=== PATIENT | male | born 1960 | race Hispanic/Latino ===

== ENCOUNTER 2016-06-19 20:51 | Observation (INO) | payer SELFPAY ==
--- NOTE | 2016-06-19 21:32 | ED PDOC ---
Arrival/HPI - General Time Seen by Provider: 06/19/16 21:14 Historian: Patient - History of Present Illness Narrative History of Present Illness (Text): 06/19/16 21:32 Travis Royal is a 55 year old male, with a history of hypertension, diabetes, COPD, alcohol abuse, GERD, and pancreatitis, who presents to the ED complaining of generalized abdominal pain today. Patient denies any fever, chills, chest pain, shortness of breath, diarrhea, urinary symptoms, back pain, neck pain, headache, dizziness, or any other complaints. 06/20/16 06:17 Time/Duration: Other (today) Symptom Onset: Gradual Symptom Course: Unchanged Activities at Onset: Rest, Light Associated Symptoms (Text): abdominal pain Past Medical History - Provider Review Nursing Documentation Reviewed: Yes - Past History Past History: No Previous - Infectious Disease Hx of Infectious Diseases: None - Tetanus Immunization Tetanus Immunization: Unknown - Cardiac Hx Hypertension: Yes - Pulmonary Hx Chronic Obstructive Pulmonary Disease (COPD): Yes - Neurological HX Cerebrovascular Accident: No - HEENT Hx HEENT Disorder: No - Renal Hx Renal Disorder: No - Endocrine/Metabolic Hx Diabetes Mellitus Type 2: Yes (noncompliant; 04/19/16 patient states he controls with diet) - Hematological/Oncological Hx Blood Disorders: Yes Hx Cancer: Yes (Pancreatic) - Integumentary Hx Dermatological Disorder: No - Musculoskeletal/Rheumatological Hx Musculoskeletal Disorders: Yes Hx Back Pain: Yes Hx Falls: Yes Hx Fractures: Yes (left hand years ago) - Gastrointestinal Hx Gastrointestinal Disorders: Yes Hx Gastroesophageal Reflux: Yes Hx Pancreatitis: Yes HX Swallowing Problems: Yes (states he must really chew his food well) - Genitourinary/Gynecological Hx Genitourinary Disorders: No - Psychiatric Hx Psychophysiologic Disorder: Yes (ETOH) Hx Anxiety: Yes Hx Depression: Yes Hx Substance Use: No (Denied by pt.) Other/Comment: Alcohol Abuse - Surgical History Hx Inguinal Hernia Repair: Yes (Ventral Hernia Repair.) - Anesthesia Hx Anesthesia Reactions: No Hx Malignant Hyperthermia: No - Suicidal Assessment Feels Threatened In Home Enviroment: No Family/Social History - Physician Review Nursing Documentation Reviewed: Yes Family/Social History: No Known Family HX Smoking Status: Light Smoker < 10 Cigarettes Daily Hx Alcohol Use: Yes (beer) Amount per day: 10 Hx Substance Use: No (Denied by pt.) Hx Substance Use Treatment: No Allergies/Home Meds Allergies/Adverse Reactions: Allergies Penicillins Allergy (Verified 04/18/16 22:38) RASH Review of Systems - Physician Review All systems were reviewed & negative as marked: Yes - Review of Systems Constitutional: Normal. absent: Fevers Eyes: Normal ENT: Normal Respiratory: Normal. absent: SOB, Cough Cardiovascular: Normal. absent: Chest Pain Gastrointestinal: Abdominal Pain Genitourinary Male: Normal. absent: Dysuria, Frequency, Hematuria, Urinary Output Changes Musculoskeletal: Normal. absent: Back Pain, Neck Pain Skin: Normal. absent: Rash Neurological: Normal. absent: Headache, Dizziness Endocrine: Normal Hemo/Lymphatic: Normal Psychiatric: Normal Physical Exam Vital Signs Reviewed: Yes Vital Signs Temp Pulse Resp BP Pulse Ox 06/20/16 05:21 97 H 18 115/70 96 06/20/16 02:35 98.2 F 93 H 18 108/61 95 06/19/16 21:00 98.2 F 86 18 133/89 98 Temperature: Afebrile Blood Pressure: Normal Pulse: Regular Respiratory Rate: Normal Appearance: Positive for: Well-Appearing, Non-Toxic, Comfortable Pain Distress: None Mental Status: Positive for: Alert and Oriented X 3 - Systems Exam Head: Present: Atraumatic, Normocephalic Pupils: Present: PERRL Extroacular Muscles: Present: EOMI Conjunctiva: Present: Normal Mouth: Present: Moist Mucous Membranes Neck: Present: Normal Range of Motion Respiratory/Chest: Present: Clear to Auscultation, Good Air Exchange. No: Respiratory Distress, Accessory Muscle Use Cardiovascular: Present: Regular Rate and Rhythm, Normal S1, S2. No: Murmurs Abdomen: Present: Normal Bowel Sounds. No: Tenderness, Distention, Peritoneal Signs Back: Present: Normal Inspection Upper Extremity: Present: Normal Inspection. No: Cyanosis, Edema Lower Extremity: Present: Normal Inspection. No: Edema Neurological: Present: GCS=15, CN II-XII Intact, Speech Normal Skin: Present: Warm, Dry, Normal Color. No: Rashes Psychiatric: Present: Alert, Oriented x 3, Normal Insight, Normal Concentration Medical Decision Making ED Course and Treatment: 06/19/16 21:32 Impression: 55 year old male complaining of generalized abdominal pain tonight. Plan: -- EKG -- EKG -- Labs, cardiac enzymes, alcohol level, lipase -- IV fluids -- Zofran -- Reassess and disposition Prior Visits: Notes and results from previous visits were reviewed. On 05/16/2016, pt was seen in the ED for bilateral lower extremity edema. Pt was admitted to the hospital for further evaluation. Progress Notes: 06/19/16 21:37 Reviewed EKG, NSR at [address]-segment elevations or depressions, no T- wave inversions, normal intervals. 06/19/16 23:07 Reviewed radiology, Chest X-ray shows no active disease. 06/20/16 06:17 awake and alert no evidence of withdrawal or intoxication Re-evaluation Time: 06:17 Reassessment Condition: Re-examined, Improved - Lab Interpretations I have reviewed the lab results: Yes - RAD Interpretation Narrative RAD Interpretations (Text): Chest X-ray shows no active disease. Prosthetist: ED Physician - EKG Interpretation Interpreted by ED Physician: Yes Type: 12 lead EKG - Medication Orders Current Medication Orders: Sodium Chloride (Sodium Chloride 0.9%) 1,000 mls @ 100 mls/hr IV .Q10H STA Stop: 06/20/16 07:41 Last Admin: 06/19/16 22:54 Dose: 100 MLS/HR eMAR Start Stop Document 06/19/16 22:54 OCS (Rec: 06/19/16 22:54 [id number]) Intravenous Solution Start Date 06/19/16 Start Time 22:54 Discontinued Medications Albuterol/Ipratropium (Duoneb 3 Mg/0.5 Mg (3 Ml) Ud) 3 ml IH STAT STA Stop: 06/19/16 22:09 Last Admin: 06/19/16 22:54 Dose: 3 ML Famotidine (Pepcid 20mg/50ml Premix) 50 mls @ 100 mls/hr IVPB STAT STA Stop: 06/19/16 22:37 Last Admin: 06/19/16 22:54 Dose: 100 MLS/HR eMAR Start Stop Document 06/19/16 22:54 OCS (Rec: 06/19/16 22:54 [id number]) Intravenous Solution Start Date 06/19/16 Start Time 22:54 Ondansetron HCl (Zofran Inj) 4 mg IVP STAT STA Stop: 06/19/16 21:43 Last Admin: 06/19/16 22:54 Dose: 4 MG IVP Administration Document 06/19/16 22:54 OCS (Rec: 06/19/16 22:54 [place] [facility] [id number][place] Charges for Administration # of IVP Administrations 1 ED OBSERVATION Discharge: Yes Date of observation admission: 06/19/16 Time of observation admission: 21:40 - Observation admission statement Patient is being placed in observation because:: alcohol abuse - Goals of Observation Goals of observation are:: sobriety - Progress Note Progress Note: 06/19/16 21:40 Pt resting comfortably, no new complaints. 06/19/16 23:40 Pt sleeping currently, in no acute distress. 06/20/16 01:47 Pt resting comfortably, no new complaints. 06/20/16 04:43 Pt sleeping currently, in no acute distress. Disposition/Present on Arrival - Present on Arrival Any Indicators Present on Arrival: No History of DVT/PE: No History of Uncontrolled Diabetes: Yes Urinary Catheter: No History Surgical Site Infection Following: None - Disposition Have Diagnosis and Disposition been Completed?: Yes Diagnosis: Alcohol abuse Disposition: HOME/ ROUTINE Disposition Time: 06:18 Patient Problems: Current Active Problems Problem Status Diagnosed Chest pain Acute Intractable vomiting Acute Condition: GOOD
[2016-06-19 21:35] VITALS: RESP 18; BMI 24.2
[2016-06-19] MEDS ORDERED: Sodium Chloride 0.9% 1,000 ML IV STA (21:42)
[2016-06-19] MEDS ORDERED: Albuterol-Ipratrop 3 mg / 0.5 (3 ml) UD IH STA (22:08)
[2016-06-19] MEDS ORDERED: Famotidine 20mg/50ml 50 ML IVPB STA (22:08)
[2016-06-19 23:14] LABS: ADD MANUAL DIFF? NO
[2016-06-19 23:24] LABS: BASO # 0.03 K/mm3 (0.0-2.0); BASO % 0.4 % (0.0-3.0); EOS % 0.3 % (1.5-5.0); GRAN # 5.46 (1.4-6.5); GRAN % 68.8 % (50.0-68.0); HEMATOCRIT 30.4 % (42.0-52.0); LYMPH # 1.9 (1.2-3.4); LYMPH % 23.3 % (22.0-35.0); MEAN CELL VOLUME 74.5 fL (80.0-105.0); MEAN CORPUSCULAR HEMOGLOBIN 24.5 pg (25.0-35.0); MEAN CORPUSCULAR HGB CONC 32.9 g/dl (31.0-37.0); MEAN PLATELET VOLUME 9.2 fl (7.0-11.0); MONO # 0.6 (0.1-0.6); MONO % 7.2 % (1.0-6.0); PLATELET COUNT 118 10^3/uL (120.0-450.0); RED CELL DISTRIBUTION WIDTH 20.7 % (11.5-14.5); WHITE BLOOD COUNT 7.9 10^3/ul (4.5-11.0)
[2016-06-19 23:29] LABS: ALB/GLOB RATIO 1.1 (1.1-1.8); ALKALINE PHOSPHATASE 108 U/L (38-133); ALT/SGPT 22 U/L (7-56); AST/SGOT 55 U/L (15-59); BILIRUBIN,TOTAL 0.9 mg/dL (0.2-1.3); BLOOD UREA NITROGEN 10 mg/dL (7-21); CARBON DIOXIDE 24 mmol/L (21-33); CHLORIDE 93 mmol/L (98-107); GFR AFRICAN-AMERICAN > 60; GLUCOSE,RANDOM 112 mg/dL (70-110); LIPASE 362 U/L (23-300); POTASSIUM 3.2 mmol/L (3.6-5.0); SODIUM 134 mmol/L (132-148); TOTAL PROTEIN 8.3 g/dL (5.8-8.3)
[2016-06-19 23:48] LABS: TROPONIN I < 0.01 ng/mL
[2016-06-20 00:52] LABS: PH,URINE 6.5 (4.7-8.0); URINE BILIRUBIN NEGATIVE (NEGATIVE); URINE BLOOD NEGATIVE (NEGATIVE); URINE GLUCOSE (UA) NEGATIVE (NEGATIVE); URINE KETONE NEGATIVE (NEGATIVE); URINE LEUKOCYTE ESTERASE NEGATIVE Leu/uL (NEGATIVE); URINE PROTEIN NEGATIVE mg/dL (<30 mg/dL); URINE UROBILINOGEN 0.2 E.U./dL (<1 E.U./dL)
[2016-06-20 00:58] LABS: URINE APPEARANCE CLEAR (CLEAR); URINE COLOR YELLOW (YELLOW)
[2016-06-20 06:35] VITALS: BP 104/63; PULSE 87; TEMP 97.9; O2SAT 95
--- NOTE | 2016-06-20 11:06 | RAD ---
PROCEDURE: Chest portable HISTORY: abd pain COMPARISON: 04/22/2016 TECHNIQUE: Technique: Single view portable semi erect @ 21:51. FINDINGS: No active pulmonary disease. No pulmonary nodules, masses or infiltrates. No evidence of acute, significant cardiovascular disease. No significant pleural, osseous or subdiaphragmatic abnormalities. IMPRESSION: No active disease. No acute/significant interval changes.
--- NOTE | 2016-06-20 18:31 | CARD ---
APPROVED REPORT EKG Measurement Heart [id number] <Conclusion> Normal sinus rhythm Normal ECG
== END 2016-06-20 06:18 | disposition home or self-care (01) ==
LOC: ED 20:51 → EROBSV 21:40
PROVIDERS: ADMIT Emergency Medicine; ATTEND Emergency Medicine
DX: F10.10 Alcohol abuse, uncomplicated (principal); Y90.8 Blood alcohol level of 240 mg/100 ml or more; I10 Essential (primary) hypertension; E11.9 Type 2 diabetes mellitus without complications; K21.9 Gastro-esophageal reflux disease without esophagitis; Z72.0 Tobacco use
CPT/HCPCS: 71010; 80053; 81003; 82550; 83615; 83690; 84484; 85025; 93005; 96374; 99285; G0378; G0480; J2405; J7040

== ENCOUNTER 2016-07-01 22:40 | Observation (INO) | payer MEDICAID, OTHER ==
[2016-07-01 22:40] VITALS: BMI 24.2
[2016-07-02] MEDS ORDERED: Sodium Chloride 0.9% 1,000 ML IV SCH (01:15)
--- NOTE | 2016-07-02 01:39 | ED PDOC ---
Arrival/HPI - General Historian: Patient - History of Present Illness Time/Duration: 4-6 hours Symptom Onset: Gradual Symptom Course: Unchanged Severity Level: Mild Activities at Onset: Light <Heraclio Jordan - Last Filed: 07/02/16 06:12> <Johnnie Pat - Last Filed: 07/02/16 16:17> - General Chief Complaint: Chest Pain Time Seen by Provider: 07/01/16 22:49 - History of Present Illness Narrative History of Present Illness (Text): 07/02/16 01:37 Travis Royal is a 55 year old male, with a history of alcohol abuse, presents to the emergency department complaining of some epigastric discomfort associated with some nausea.. Patient admits to drinking alcohol today. Denies any fever, chills, chest pain, shortness of breath, diarrhea, urinary symptoms, or any other complaints at this time. (Heraclio Jordan) Past Medical History - Provider Review Nursing Documentation Reviewed: Yes - Past History Past History: No Previous - Infectious Disease Hx of Infectious Diseases: None - Tetanus Immunization Tetanus Immunization: Unknown - Cardiac Hx Hypertension: Yes - Pulmonary Hx Chronic Obstructive Pulmonary Disease (COPD): Yes - Neurological HX Cerebrovascular Accident: No - HEENT Hx HEENT Disorder: No - Renal Hx Renal Disorder: No - Endocrine/Metabolic Hx Diabetes Mellitus Type 2: Yes (noncompliant; 04/19/16 patient states he controls with diet) - Hematological/Oncological Hx Blood Disorders: Yes Hx Cancer: Yes (Pancreatic) - Integumentary Hx Dermatological Disorder: No - Musculoskeletal/Rheumatological Hx Musculoskeletal Disorders: Yes Hx Back Pain: Yes Hx Falls: Yes Hx Fractures: Yes (left hand years ago) - Gastrointestinal Hx Gastrointestinal Disorders: Yes Hx Gastroesophageal Reflux: Yes Hx Pancreatitis: Yes HX Swallowing Problems: Yes (states he must really chew his food well) - Genitourinary/Gynecological Hx Genitourinary Disorders: No - Psychiatric Hx Psychophysiologic Disorder: Yes (ETOH) Hx Anxiety: Yes Hx Depression: Yes Hx Substance Use: No (Denied by pt.) Other/Comment: Alcohol Abuse - Surgical History Hx Cardiac Catheterization: No Hx Coronary Stent: No Hx Musculoskeletal Surgery: Yes - Anesthesia Hx Anesthesia: Yes Hx Anesthesia Reactions: No Hx Malignant Hyperthermia: No - Suicidal Assessment Feels Threatened In Home Enviroment: No <Heraclio Jordan - Last Filed: 07/02/16 06:12> Family/Social History - Physician Review Nursing Documentation Reviewed: Yes Family/Social History: No Known Family HX Smoking Status: Light Smoker < 10 Cigarettes Daily Hx Alcohol Use: Yes (beer) Amount per day: 10 Hx Substance Use: No (Denied by pt.) Hx Substance Use Treatment: No <JulianHeraclio - Last Filed: 07/02/16 06:12> Allergies/Home Meds <JulianHeraclio - Last Filed: 07/02/16 06:12> <Johnnie Pat Babar - Last Filed: 07/02/16 16:17> Allergies/Adverse Reactions: Allergies Penicillins Allergy (Verified 04/18/16 22:38) RASH Review of Systems - Physician Review All systems were reviewed & negative as marked: Yes - Review of Systems Constitutional: Normal. absent: Fatigue, Fevers Respiratory: Normal. absent: SOB, Cough Cardiovascular: absent: Chest Pain, Palpitations Gastrointestinal: Abdominal Pain, Nausea, Vomiting. absent: Diarrhea Skin: Normal Psychiatric: Normal <JulianHeraclio Benz Last Filed: 07/02/16 06:12> Physical Exam Vital Signs Reviewed: Yes Temperature: Afebrile Blood Pressure: Hypertensive Pulse: Tachycardic Respiratory Rate: Normal Appearance: Positive for: Comfortable Pain Distress: None Mental Status: Positive for: Alert and Oriented X 3 - Systems Exam Head: Present: Atraumatic, Normocephalic Pupils: Present: PERRL Extroacular Muscles: Present: EOMI Conjunctiva: Present: Normal Respiratory/Chest: Present: Clear to Auscultation, Good Air Exchange. No: Respiratory Distress, Accessory Muscle Use Cardiovascular: Present: Regular Rate and Rhythm, Normal S1, S2. No: Murmurs Abdomen: Present: Normal Bowel Sounds. No: Tenderness, Distention, Peritoneal Signs Upper Extremity: Present: Normal Inspection. No: Cyanosis, Edema Lower Extremity: Present: Normal Inspection Neurological: Present: GCS=15, CN II-XII Intact, Speech Normal Skin: Present: Warm, Dry, Normal Color. No: Rashes Psychiatric: Present: Alert, Oriented x 3, Intoxicated <JulianHeraclio - Last Filed: 07/02/16 06:12> Vital Signs Temp Pulse Resp BP Pulse Ox 07/02/16 09:22 86 18 101/68 99 07/02/16 08:35 92 H 18 100/70 99 07/02/16 08:00 98.7 F 92 H 16 99/65 L 99 07/02/16 05:30 88 20 130/88 96 07/02/16 02:00 98 H 20 136/94 H 96 07/01/16 22:47 98.2 F 100 H 16 140/108 H 96 Medical Decision Making - Transfer of Care Patient signed out to Dr:: Adilia Other: Sobriety/reassess/final disposition <Heraclio Jordan - Last Filed: 07/02/16 06:12> <Johnnie Pat - Last Filed: 07/02/16 16:17> ED Course and Treatment: 07/02/16 01:43 Impression: A 55 year old male who presents to the emergency department complaining of epigastric discomfort associated occassional nausea. Admits to drinking alcohol. Plan: -- EKG -- Alcohol level -- Cardiac enzymes -- Chest X-ray -- Protonix -- IV fluids -- Reassess and disposition 07/02/16 02:00 ETOH level of 294. Will place on EDOBS for alcohol intoxication. (Heraclio Jordan) The started to c/o some withdrawal sx which improved after librium. On several re-evals he was resting quietly without complaints. He was dc in stable condition. (Johnnie Pat) - Medication Orders Current Medication Orders: Sodium Chloride (Sodium Chloride 0.9%) 1,000 mls @ 100 mls/hr IV .Q10H [facility] Last Admin: 07/02/16 01:55 Dose: 100 MLS/HR eMAR Start Stop Document 07/02/16 01:55 SABINA (Rec: 07/02/16 01:55 SABINA [facility] [id number]) Intravenous Solution Start Date 07/02/16 Start Time 01:55 Discontinued Medications Chlordiazepoxide (Librium) 100 mg PO STAT STA PRN Reason: Protocol Stop: 07/02/16 08:16 Last Admin: 07/02/16 08:26 Dose: 100 MG Behavioural Document 07/02/16 08:26 SZA (Rec: 07/02/16 08:27 SZKristin [id number]) Maintenance Maintenance Dose Yes Nonmedicinal Nonmedicinal Interventions Redirect Behavior Behavior for Medication: Anxiety Ondansetron HCl (Zofran Inj) 4 mg IVP ONCE ONE Stop: 07/02/16 08:15 Last Admin: 07/02/16 08:25 Dose: 4 MG IVP Administration Document 07/02/16 08:25 SZA (Rec: 07/02/16 08:25 SZA [id number]) Charges for Administration # of IVP Administrations 1 Pantoprazole Sodium (Protonix Inj) 40 mg IVP ONCE STA Stop: 07/02/16 01:14 Last Admin: 07/02/16 01:55 Dose: 40 MG IVP Administration Document 07/02/16 01:55 SABINA (Rec: 07/02/16 01:55 [place] [facility] [facility] [id number][place] Charges for Administration # of IVP Administrations 1 ED OBSERVATION Date of observation admission: 07/02/16 Time of observation admission: 01:00 <Heraclio Jordan - Last Filed: 07/02/16 06:12> Discharge: Yes <Johnnie Pat - Last Filed: 07/02/16 16:17> - Observation admission statement Patient is being placed in observation because:: alcohol intoxication (Heraclio Jordan) - Goals of Observation Goals of observation are:: awaiting sobriety (Heraclio Jordan) - Progress Note Progress Note: 07/02/16 03:00 EKG interpreted by me: NSR @ 92 bpm. normal axis normal. normal interval. 07/02/16 05:00 Patient is sleeping comfortable with stable vitals. (Heraclio Jordan) 07/02/16 10:38 Patient is feeling better. Vitals are stable. Discussed plan to follow up and reasons to return to the Emergency department. (Johnnie Pat) - Scribe Statement The provider has reviewed the documentation as recorded by the Scribe <Heraclio Jordan - Last Filed: 07/02/16 06:12> - Scribe Statement The provider has reviewed the documentation as recorded by the Scribe <Johnnie Pat - Last Filed: 07/02/16 16:17> - Scribe Statement Marti Muller (Heraclio Jordan) Provider Attestation: All medical record entries made by the Scribe were at my direction and personally dictated by me. I have reviewed the chart and agree that the record accurately reflects my personal performance of the history, physical exam, medical decision making, and the department course for this patient. I have also personally directed, reviewed, and agree with the discharge instructions and disposition. (Heraclio Jordan) Daljit Reyes All medical record entries made by the Scribe were at my direction and personally dictated by me. I have reviewed the chart and agree that the record accurately reflects my personal performance of the history, physical exam, medical decision making, and the department course for this patient. I have also personally directed, reviewed, and agree with the discharge instructions and disposition. (Johnnie Pat) Disposition/Present on Arrival - Present on Arrival Any Indicators Present on Arrival: No History of DVT/PE: No History of Uncontrolled Diabetes: Yes Urinary Catheter: No History of Decub. Ulcer: No History Surgical Site Infection Following: None - Disposition Have Diagnosis and Disposition been Completed?: No Disposition Time: 07:00 <Heraclio Jordan - Last Filed: 07/02/16 06:12> - Present on Arrival Any Indicators Present on Arrival: No History of DVT/PE: No Urinary Catheter: No History of Decub. Ulcer: No - Disposition Have Diagnosis and Disposition been Completed?: Yes Disposition Time: 10:39 <Johnnie Pat - Last Filed: 07/02/16 16:17> - Disposition Diagnosis: Alcohol intoxication Disposition: HOME/ ROUTINE Patient Problems: Current Active Problems Problem Status Diagnosed Alcohol intoxication Acute Chest pain Acute Intractable vomiting Acute Condition: IMPROVED
[2016-07-02 02:22] LABS: HEMATOCRIT 30.5 % (42.0-52.0); MEAN CELL VOLUME 74.4 fL (80.0-105.0); MEAN CORPUSCULAR HEMOGLOBIN 24.9 pg (25.0-35.0); MEAN CORPUSCULAR HGB CONC 33.4 g/dl (31.0-37.0); MEAN PLATELET VOLUME 9.7 fl (7.0-11.0); RED CELL DISTRIBUTION WIDTH 20.1 % (11.5-14.5); WHITE BLOOD COUNT 7.3 10^3/ul (4.5-11.0)
[2016-07-02 02:44] LABS: ALKALINE PHOSPHATASE 97 U/L (38-133); ALT/SGPT 38 U/L (7-56); AST/SGOT 62 U/L (15-59); BILIRUBIN,TOTAL 0.9 mg/dL (0.2-1.3); BLOOD UREA NITROGEN 9 mg/dL (7-21); CALCIUM 8.6 mg/dL (8.4-10.5); CARBON DIOXIDE 24 mmol/L (21-33); CHLORIDE 95 mmol/L (98-107); GFR AFRICAN-AMERICAN > 60; GLUCOSE,RANDOM 99 mg/dL (70-110); LIPASE 369 U/L (23-300); POTASSIUM 3.7 mmol/L (3.6-5.0); SODIUM 136 mmol/L (132-148); TOTAL PROTEIN 8.6 g/dL (5.8-8.3)
[2016-07-02 02:56] LABS: TROPONIN I 0.02 ng/mL
[2016-07-02 08:16] VITALS: TEMP 98.7; O2SAT 99
[2016-07-02 09:23] VITALS: BP 101/68; PULSE 86; RESP 18
--- NOTE | 2016-07-02 09:31 | CARD ---
APPROVED REPORT EKG Measurement Heart [id number] <Conclusion> Normal sinus rhythm Normal ECG No change
--- NOTE | 2016-07-02 09:35 | RAD ---
HISTORY: Epigastric pain COMPARISON: 06/19/2016 FINDINGS: LUNGS: The lungs are well inflated and clear. PLEURA: No significant pleural effusion identified, no pneumothorax apparent. CARDIOVASCULAR: Normal. OSSEOUS STRUCTURES: No significant abnormalities. VISUALIZED UPPER ABDOMEN: Normal. OTHER FINDINGS: None. IMPRESSION: No active pulmonary disease.
== END 2016-07-02 16:18 | disposition home or self-care (01) ==
LOC: ED 22:40 → EROBSV 07-02 01:00
PROVIDERS: ADMIT Emergency Medicine; ATTEND Emergency Medicine
DX: F10.129 Alcohol abuse with intoxication, unspecified (principal); I10 Essential (primary) hypertension; K21.9 Gastro-esophageal reflux disease without esophagitis; Z85.07 Personal history of malignant neoplasm of pancreas; Y90.8 Blood alcohol level of 240 mg/100 ml or more; Z72.0 Tobacco use
CPT/HCPCS: 71010; 80053; 82550; 83615; 83690; 84484; 85027; 93005; 96374; 96375; 99285; C9113; G0378; G0480; J2405; J7040

== ENCOUNTER 2016-07-14 16:41 | Inpatient (IN) | payer MEDICAID, OTHER ==
[2016-07-14 16:53] VITALS: BMI 27.4
[2016-07-14 17:22] LABS: ADD MANUAL DIFF? NO
[2016-07-14] MEDS ORDERED: Sodium Chloride 0.9% 1,000 ML IV STA (17:25)
[2016-07-14 17:35] LABS: ALB/GLOB RATIO 1.1 (1.1-1.8); ALKALINE PHOSPHATASE 120 U/L (38-133); ALT/SGPT 56 U/L (7-56); AST/SGOT 88 U/L (15-59); BILIRUBIN,TOTAL 0.9 mg/dL (0.2-1.3); BLOOD UREA NITROGEN 10 mg/dL (7-21); CALCIUM 8.7 mg/dL (8.4-10.5); CARBON DIOXIDE 23 mmol/L (21-33); CHLORIDE 87 mmol/L (98-107); GFR AFRICAN-AMERICAN > 60; GLUCOSE,RANDOM 139 mg/dL (70-110); MAGNESIUM 1.7 mg/dL (1.7-2.2); POTASSIUM 3.7 mmol/L (3.6-5.0); SODIUM 129 mmol/L (132-148); TOTAL PROTEIN 8.2 g/dL (5.8-8.3)
[2016-07-14 17:36] LABS: BASO # 0.03 K/mm3 (0.0-2.0); BASO % 0.3 % (0.0-3.0); GRAN # 8.58 (1.4-6.5); GRAN % 78.2 % (50.0-68.0); HEMATOCRIT 33.5 % (42.0-52.0); LYMPH # 1.4 (1.2-3.4); LYMPH % 12.8 % (22.0-35.0); MEAN CELL VOLUME 76.1 fL (80.0-105.0); MEAN CORPUSCULAR HEMOGLOBIN 24.8 pg (25.0-35.0); MEAN CORPUSCULAR HGB CONC 32.5 g/dl (31.0-37.0); MONO % 8.7 % (1.0-6.0); PLATELET COUNT 179 10^3/uL (120.0-450.0); RED CELL DISTRIBUTION WIDTH 19.7 % (11.5-14.5)
[2016-07-14 17:55] LABS: TROPONIN I < 0.01 ng/mL
[2016-07-14 18:07] LABS: LIPASE 485 U/L (23-300)
--- NOTE | 2016-07-14 18:16 | ED PDOC ---
Arrival/HPI - General Chief Complaint: Chest Pain Time Seen by Provider: 07/14/16 17:41 - History of Present Illness Narrative History of Present Illness (Text): 07/14/16 18:13 55-year-old male presents emergency Department with multiple episodes of emesis with bloody streaks in it. Patient states that this is accompanied by abdominal cramping in the epigastric region. Patient denies any chest pain, shortness of breath or dyspnea on exertion. States that he had one beer earlier today and does not feel like he is going through any alcohol withdrawal symptoms. No other complaints. Past Medical History - Provider Review Nursing Documentation Reviewed: Yes - Past History Past History: No Previous - Infectious Disease Hx of Infectious Diseases: None - Tetanus Immunization Tetanus Immunization: Unknown - Cardiac Hx Hypertension: Yes - Pulmonary Hx Chronic Obstructive Pulmonary Disease (COPD): Yes - Neurological HX Cerebrovascular Accident: No - HEENT Hx HEENT Disorder: No - Renal Hx Renal Disorder: No - Endocrine/Metabolic Hx Diabetes Mellitus Type 2: Yes (noncompliant; 04/19/16 patient states he controls with diet) - Hematological/Oncological Hx Blood Disorders: Yes Hx Cancer: Yes (Pancreatic) - Integumentary Hx Dermatological Disorder: No - Musculoskeletal/Rheumatological Hx Musculoskeletal Disorders: Yes Hx Back Pain: Yes Hx Falls: Yes Hx Fractures: Yes (left hand years ago) - Gastrointestinal Hx Gastrointestinal Disorders: Yes Hx Gastroesophageal Reflux: Yes Hx Pancreatitis: Yes HX Swallowing Problems: Yes (states he must really chew his food well) - Genitourinary/Gynecological Hx Genitourinary Disorders: No - Psychiatric Hx Psychophysiologic Disorder: Yes (ETOH) Hx Anxiety: Yes Hx Depression: Yes Hx Substance Use: No (Denied by pt.) Other/Comment: Alcohol Abuse - Surgical History Hx Cardiac Catheterization: No Hx Coronary Stent: No Hx Musculoskeletal Surgery: Yes - Anesthesia Hx Anesthesia: Yes Hx Anesthesia Reactions: No Hx Malignant Hyperthermia: No - Suicidal Assessment Feels Threatened In Home Enviroment: No Family/Social History Family/Social History: Unknown Family HX Smoking Status: Light Smoker < 10 Cigarettes Daily Hx Alcohol Use: Yes (beer) Amount per day: 10 Hx Substance Use: No (Denied by pt.) Hx Substance Use Treatment: No Allergies/Home Meds Allergies/Adverse Reactions: Allergies Penicillins Allergy (Verified 04/18/16 22:38) RASH Physical Exam - Physical Exam Narrative Physical Exam (Text): 07/14/16 18:16 - Review of Systems Constitutional: Normal. absent: Fatigue, Weight Change, Fevers Eyes: Normal ENT: denies sore throat, denies tristhmus Respiratory: Normal. absent: SOB, Cough, Sputum Cardiovascular: absent: Chest Pain, Palpitations, Syncope Gastrointestinal: Nausea, vomiting, abdominal cramping absent: Diarrhea Genitourinary: Normal. absent: Dysuria, Frequency, Hematuria Musculoskeletal: Normal. absent: Arthralgias, Back Pain, Neck Pain Skin: no rashes, no erythema Neurological: absent: Focal Weakness Endocrine: Normal Hemo/Lymphatic: Normal Psychiatric: No suicidal or homicidal ideations Physical exam Patient appears age appropriate in no distress, speaking full sentences without difficulty - Systems Exam Head: Present: Atraumatic, Normocephalic Pupils: Present: PERRL Extroacular Muscles: Present: EOMI Conjunctiva: Present: Normal Mouth: Present: Moist Mucous Membranes Neck: Present: Normal Range of Motion. No: MIDLINE TENDERNESS, Paraspinal Tenderness Respiratory/Chest: Present: Clear to Auscultation, Good Air Exchange. No: Respiratory Distress, Accessory Muscle Use, Tachypneic Cardiovascular: Present: Regular Rate and Rhythm, Normal S1, S2, Peripheal Pulses Present. No: Murmurs Abdomen: Present: Normal Bowel Sounds. No: Tenderness, Distention, Peritoneal Signs, Rebound, Guarding Back: Present: Normal Inspection. No: Midline Tenderness, Paraspinal Tenderness Upper Extremity: Present: Normal Inspection. No: Cyanosis, Edema Lower Extremity: Present: Normal Inspection. No: Edema Neurological: Present: GCS=15, Speech Normal, cranial nerves II through XII fully intact with no cerebellar abnormality, neurosensory fully intact. No focal neurological deficits. Skin: Present: Warm, Dry, Normal Color. No: Rashes Lymphatic: Present: OX3, NI, NC Psychiatric: Present: Alert, Oriented x 3, Normal Insight, Normal Concentration Vital Signs Reviewed: Yes Vital Signs Temp Pulse Resp BP Pulse Ox 07/14/16 16:52 98.2 F 101 H 20 158/43 H 98 Temperature: Afebrile Blood Pressure: Hypertensive Pulse: Tachycardic Respiratory Rate: Normal Appearance: Positive for: Non-Toxic Pain Distress: None Mental Status: Positive for: Alert and Oriented X 3 Medical Decision Making ED Course and Treatment: 07/14/16 18:17 55-year-old male with history of alcohol abuse with hematemesis. BUN/creatinine ratio normal Patient is hemodynamic stable Hemoglobin above 10 Chest x-ray shows no cardiomegaly, no effusions, no infiltrates, no free air under the diaphragms. Interpreted by me. EKG interpreted by ER physician. Normal sinus. No ST-segment elevations. Normal intervals. case dw Dr. Goel, accepted pt to her service to remote tele pt currently with no n/v, aware of and agrees with plan - Lab Interpretations Lab Results: 07/14/16 17:00 07/14/16 17:00 Lab Results 07/14/16 17:00: WBC 11.0 D, RBC 4.40, Hgb 10.9 L, Hct 33.5 L, MCV 76.1 L, MCH 24.8 L, MCHC 32.5, RDW 19.7 H, Plt Count 179, MPV 9.0, Gran % 78.2 H, Lymph % ( Auto) 12.8 L, [place] % (Auto) 8.7 H, Eos % (Auto) 0.0 L, Baso % (Auto) 0.3, Gran # 8.58 H, Lymph # 1.4, Ross # 1.0 H, Eos # 0.0, Baso # 0.03, Sodium 129 L, Potassium 3.7, Chloride 87 L, Carbon Dioxide 23, Anion Gap 23 H, BUN 10, Creatinine 0.8, Est GFR ( Amer) > 60, Est GFR (Non-Af Amer) > 60, Random Glucose 139 H, Calcium 8.7, Magnesium 1.7, Total Bilirubin 0.9, AST 88 H, ALT 56 , Alkaline Phosphatase 120, Lactate Dehydrogenase 577, Total Creatine Kinase 210 , Troponin I < 0.01 D, Total Protein 8.2, Albumin 4.2, Globulin 4.0, Albumin/ Globulin Ratio 1.1, Lipase Pending - RAD Interpretation Radiology Orders: 07/14/16 17:24 CHEST PORTABLE [RAD] Stat - Medication Orders Current Medication Orders: Sodium Chloride (Sodium Chloride 0.9%) 1,000 mls @ 999 mls/hr IV .Q1H1M STA Stop: 07/14/16 18:25 Last Admin: 07/14/16 17:39 Dose: 999 MLS/HR eMAR Start Stop Document 07/14/16 17:39 EWO (Rec: 07/14/16 17:39 EWO [id number]) Intravenous Solution Start Date 07/14/16 Start Time 17:45 End Date 07/14/16 End time 18:45 Total Infusion Time 60 Discontinued Medications Ondansetron HCl (Zofran Inj) Confirm Administered Dose 4 mg .ROUTE .STK-MED ONE Stop: 07/14/16 17:06 Last Admin: 07/14/16 17:12 Dose: 4 MG Ondansetron HCl (Zofran Inj) 4 mg IVP STAT STA Stop: 07/14/16 17:25 Last Admin: 07/14/16 17:39 Dose: Pantoprazole Sodium (Protonix Inj) 40 mg IVP STAT STA Stop: 07/14/16 17:42 Last Admin: 07/14/16 17:45 Dose: 40 MG IVP Administration Document 07/14/16 17:45 EW (Rec: 07/14/16 17:45 EWO [id number]) Charges for Administration # of IVP Administrations 1 Disposition/Present on Arrival - Present on Arrival Any Indicators Present on Arrival: No History of DVT/PE: No History of Uncontrolled Diabetes: No Urinary Catheter: No History of Decub. Ulcer: No History Surgical Site Infection Following: None - Disposition Have Diagnosis and Disposition been Completed?: Yes Diagnosis: Hematemesis Disposition: HOSPITALIZED Disposition Time: 18:18 Patient Plan: Admission Patient Problems: Current Active Problems Problem Status Diagnosed Chest pain Acute Intractable vomiting Acute Condition: FAIR
[2016-07-14] MEDS ORDERED: Folic Acid 1 MG, Thiamine 100 MG, Multivitamin (MVI) 10 ML in Dextrose 5% In Water 1,00... IV SCH (18:30)
[2016-07-14] MEDS ORDERED: Thiamine 100 mg/ml Inj IM STA (19:21)
--- NOTE | 2016-07-14 19:32 | CP.PCM.HP ---
<Corine Mccormick - Last Filed: 07/14/16 19:22> History of Present Illness - History of Present Illness History of Present Illness: This is a 55Y M with PMH alcoholism, chronic pancreatitis, erosive esophagitis , gastritis, COPD came to the ED for nausea and vomiting since this AM. He says that he has thrown up about 5 days and the vomit is dark in color. He was vomiting in the ED and I saw the vomit myself, which is coffee ground in color. He reports drinking before and after his vomiting episodes. The patient denies taking any medicine or NSAIDs. He says he has been having diarrhea for the past few days. The stool has been dark brown in color, but denies having any annita blood. He has been having lower abdominal pain as well. It does not radiate and it is constant. The patient reports having some chest pain that radiates to his back. It is worse with vomiting. EKG and troponin were negative in ED. He denies SOB, fever, chills, edema, constipation, numbness/tingling. ROS: + for N/V/D, abdominal pain, CP, hematemesis PMH: alcoholism, anemia chronic pancreatitis, erosive esophagitis, gastritis, COPD PSH: R incarcerated inguinal hernia repair and R orchiectomy Home meds: denies taking any meds All: penicillin- not sure what happens when he takes it SH: Daily alcohol use- drinks 6 24oz beers per day. Former heavy smoker- now smokes 1 cigg per day. Denies drug use. FH: Dad: rectal cancer, Mom: Ovarian cancer Present on Admission - Present on Admission Any Indicators Present on Admission: No Review of Systems - Review of Systems Review of Systems: As per HPI Past Patient History - Infectious Disease Hx of Infectious Diseases: None - Tetanus Immunizations Tetanus Immunization: Unknown - Past Medical History & Family History Past Medical History?: Yes - Past Social History Smoking Status: Former Smoker (also light smoker- smokes 1 cig per day) Alcohol: > 2 Drinks/Day Drugs: Denies Home Situation {Lives}: Alone, Homeless - CARDIAC Hx Hypertension: Yes - PULMONARY Hx Chronic Obstructive Pulmonary Disease (COPD): Yes - NEUROLOGICAL HX Cerebrovascular Accident: No - HEENT Hx HEENT Problems: No - RENAL Hx Chronic Kidney Disease: No - ENDOCRINE/METABOLIC Hx Diabetes Mellitus Type 2: Yes (noncompliant; 04/19/16 patient states he controls with diet) - HEMATOLOGICAL/ONCOLOGICAL Hx Blood Disorders: Yes Hx Cancer: Yes (Pancreatic) - INTEGUMENTARY Hx Dermatological Problems: No - MUSCULOSKELETAL/RHEUMATOLOGICAL Hx Musculoskeletal Disorders: Yes Hx Back Pain: Yes Hx Falls: Yes Hx Fractures: Yes (left hand years ago) - GASTROINTESTINAL Hx Gastrointestinal Disorders: Yes Hx Gastroesophageal Reflux: Yes Hx Pancreatitis: Yes HX Swallowing Problems: Yes (states he must really chew his food well) - GENITOURINARY/GYNECOLOGICAL Hx Genitourinary Disorders: No - PSYCHIATRIC Hx Psychophysiologic Disorder: Yes (ETOH) Hx Anxiety: Yes Hx Depression: Yes Hx Substance Use: No (Denied by pt.) Other/Comment: Alcohol Abuse - SURGICAL HISTORY Hx Cardiac Catheterization: No Hx Coronary Stent: No Hx Musculoskeletal Surgery: Yes - ANESTHESIA Hx Anesthesia: Yes Hx Anesthesia Reactions: No Hx Malignant Hyperthermia: No Meds Allergies/Adverse Reactions: Allergies Allergy/AdvReac Type Severity Reaction Status Date / Time Penicillins Allergy RASH Verified 04/18/16 22:38 Physical Exam - Constitutional Appears: No Acute Distress - Head Exam Head Exam: ATRAUMATIC, NORMAL INSPECTION, NORMOCEPHALIC - Eye Exam Eye Exam: Normal appearance Pupil Exam: NORMAL ACCOMODATION - ENT Exam ENT Exam: Mucous Membranes Dry - Neck Exam Neck exam: Positive for: Normal Inspection. Negative for: Tenderness, Thyromegaly - Respiratory Exam Respiratory Exam: Clear to Auscultation Bilateral, NORMAL BREATHING PATTERN. absent: Rales, Rhonchi, Wheezes - Cardiovascular Exam Cardiovascular Exam: REGULAR RHYTHM, +S1, +S2. absent: Gallop, Rubs, Systolic Murmur - GI/Abdominal Exam GI & Abdominal Exam: Distended, Normal Bowel Sounds, Tenderness (RLQ and LLQ tenderness ). absent: Guarding, Rebound, Rigid - Extremities Exam Extremities exam: Positive for: pedal edema (+1 pitting edema bilaterally ). Negative for: calf tenderness - Neurological Exam Neurological exam: Alert, CN II-XII Intact, Oriented x3 - Psychiatric Exam Psychiatric exam: Normal Affect, Normal Mood - Skin Skin Exam: Dry, Normal Color, Warm Results - Vital Signs Recent Vital Signs: Last Vital Signs Temp 98.2 F 07/14/16 16:52 Pulse 95 H 07/14/16 18:43 Resp 18 07/14/16 18:43 BP 156/83 H 07/14/16 18:43 Pulse Ox 96 07/14/16 18:43 - Labs Result Diagrams: 07/14/16 17:00 07/14/16 17:00 - EKG Data EKG Interpreted by: Myself EKG shows normal: Sinus rhythm Rate: Normal Assessment & Plan - Assessment and Plan (Free Text) Assessment: alcoholism, chronic pancreatitis, erosive esophagitis, gastritis, COPD and anemia admitted for hematemesis and alcohol intoxication. Plan: 1. Hematemesis - Hx of erosive esophagitis - Hgb 10- will continue to monitor - GI consulted - NPO, Protonix IV - IV Fluids (banana bag) - Zofran prn nausea - Will check CXR 2. Alcoholism - Will check alcohol level- admits to drinking today - WA protocol - aspiration and seizure precaution - neuro check q4h - Ativan 1mg q4h prn - Librum nina - Banana bag - Thiamine, multivitamin, folic acid after banana bag 3. Chest pain - most likely secondary to vomiting - Troponin negative- will check one more - EKG showed NSR 4. Hx of chronic pancreatitis - Lipase in 400s, around baseline - IV fluids - afebrile, no leukocytosis 5. Hx of COPD - Duonebs prn - NC 2L prn - maintain spO2>90 GI ppx: Protonix DVT ppx: SCDs Case seen, reviewed and discussed with attending Yocasta Mccorimck PGY1 - Date & Time Date: 07/14/16 Time: 19:41 <Franc Whitney - Last Filed: 07/15/16 01:09> Results - Vital Signs Recent Vital Signs: Last Vital Signs Temp 100.4 F H 07/14/16 22:00 Pulse 91 H 07/14/16 22:00 Resp 18 07/14/16 22:00 BP 121/83 07/14/16 22:00 Pulse Ox 98 07/14/16 22:00 - Labs Result Diagrams: 07/14/16 17:00 07/14/16 17:00 Labs: Laboratory Results - last 24 hr 07/14/16 20:00 Urine Color Yellow Urine Appearance Clear Urine pH 6.0 Ur Specific [place] 1.015 Urine Protein Trace H Urine Glucose (UA) Negative Urine Ketones Negative Urine Blood Negative Urine Nitrate Negative Urine Bilirubin Negative Urine Urobilinogen 0.2 Ur Leukocyte Esterase Negative Urine RBC 0 - 2 Urine WBC 0 - 2 Ur Epithelial Cells 0 - 2 Attending/Attestation - Attestation I have personally seen and examined this patient.: Yes I have fully participated in the care of the patient.: Yes I have reviewed all pertinent clinical information: Yes Notes (Text): 07/15/16 01:08 Patient was seen when he was in ISO room in the ER. Agree with history , physical examination, assessment and plan.
[2016-07-14] MEDS: Folic Acid 1 MG, Thiamine 100 MG, Multivitamin (MVI) 10 ML in Dextrose 5% In Water 1,00... IV SCH (19:57)
[2016-07-14 20:13] LABS: URINE APPEARANCE CLEAR (CLEAR); URINE BILIRUBIN NEGATIVE (NEGATIVE); URINE BLOOD NEGATIVE (NEGATIVE); URINE COLOR YELLOW (YELLOW); URINE GLUCOSE (UA) NEGATIVE (NEGATIVE); URINE KETONE NEGATIVE (NEGATIVE); URINE LEUKOCYTE ESTERASE NEGATIVE Leu/uL (NEGATIVE); URINE PROTEIN TRACE mg/dL (<30 mg/dL); URINE UROBILINOGEN 0.2 E.U./dL (<1 E.U./dL)
[2016-07-14 20:32] LABS: URINE EPITHELIAL CELLS 0 - 2 /hpf (0-5); URINE RBC 0 - 2 /hpf (0-2); URINE WBC 0 - 2 /hpf (0-6)
[2016-07-15] MEDS: Folic Acid 1 MG, Thiamine 100 MG, Multivitamin (MVI) 10 ML in Dextrose 5% In Water 1,00... IV SCH (06:00)
--- NOTE | 2016-07-15 07:20 | CP.PCM.CON ---
<Margo Easton - Last Filed: 07/15/16 12:09> History of Present Illness - History of Present Illness History of Present Illness: Gastroenterology Fellow/PGY4 Consult Note 55 year old male with history of COPD, Alcohol Abuse, recurrent Upper GI bleed, and LA Grade D esophagitis with ulcerations presenting with vomiting. Patient describes chest/back/ and left upper abdomen pain for the last two days. He developed nausea and estimated 5 to 10 coffee ground emesis episodes with witnessed episode in ER. Last drink of two 24-oz beers prior to ER presentation. History of six 24-oz beers daily with intermittent vodka use. He denies fever, chills, sweats, sick contacts, bloating, indigestion, melena, hematochezia, or hematemesis. Notes poor diet due to mainly daily alcohol intake. Admits to noncompliance to Protonix prescribed with occasional use and none taken during the last week. EGD 04/2016 showed LA Grade D esophagitis at GE junction, LA Grade C at 26cm from incisors, and GE ulcerations. No prior colonoscopy. [id number] cancer, mother-ovarian cancer Social-daily 6 24 ounce beers, intermittent vodka, former heavy tobacco use, 1 cigarette daily, denies illicit drug use Surgery- right hernia, right orchiectomy Review of Systems - Review of Systems Review of Systems: A 12-point review of systems negative except for as above Past Patient History - Infectious Disease Hx of Infectious Diseases: None - Tetanus Immunizations Tetanus Immunization: Unknown - Past Medical History & Family History Past Medical History?: Yes - Past Social History Smoking Status: Light Smoker < 10 Cigarettes Daily - CARDIAC Hx Hypertension: Yes - PULMONARY Hx Chronic Obstructive Pulmonary Disease (COPD): Yes - NEUROLOGICAL HX Cerebrovascular Accident: No - HEENT Hx HEENT Problems: No - RENAL Hx Chronic Kidney Disease: No - ENDOCRINE/METABOLIC Hx Diabetes Mellitus Type 2: Yes (noncompliant; 04/19/16 patient states he controls with diet) - HEMATOLOGICAL/ONCOLOGICAL Hx Blood Disorders: Yes Hx Cancer: Yes (Pancreatic) - INTEGUMENTARY Hx Dermatological Problems: No - MUSCULOSKELETAL/RHEUMATOLOGICAL Hx Falls: Yes - GASTROINTESTINAL Hx Gastrointestinal Disorders: Yes Hx Gastroesophageal Reflux: Yes Hx Pancreatitis: Yes HX Swallowing Problems: Yes (states he must really chew his food well) - GENITOURINARY/GYNECOLOGICAL Hx Genitourinary Disorders: No - PSYCHIATRIC Hx Psychophysiologic Disorder: Yes (ETOH) Hx Anxiety: Yes Hx Depression: Yes Other/Comment: Alcohol Abuse - SURGICAL HISTORY Hx Cardiac Catheterization: No Hx Coronary Stent: No Hx Musculoskeletal Surgery: Yes - ANESTHESIA Hx Anesthesia: Yes Hx Anesthesia Reactions: No Hx Malignant Hyperthermia: No Meds Allergies/Adverse Reactions: Allergies Allergy/AdvReac Type Severity Reaction Status Date / Time Penicillins Allergy RASH Verified 04/18/16 22:38 - Medications Medications: Current Medications Chlordiazepoxide (Librium) 50 mg PO Q4H [facility] Last Admin: 07/15/16 06:56 Dose: 50 mg Folic Acid (Folic Acid) 1 mg PO DAILY [facility] Folic Acid 1 mg/ Thiamine HCl 100 mg/ Multivitamins/Vitamin C 10 ml/ Dextrose 1 ,011.2 mls @ 100 mls/hr IV .Q10H7M [facility] Last Admin: 07/15/16 06:00 Dose: 100 mls/hr Lorazepam (Ativan) 1 mg IVP Q4H PRN PRN Reason: Symptoms of alcohol withdrawl Last Admin: 07/14/16 22:44 Dose: 1 mg Multivitamins (Thera Tab) 1 tab PO DAILY [facility] Ondansetron HCl (Zofran Inj) 4 mg IVP Q4H PRN PRN Reason: Nausea/Vomiting Last Admin: 07/15/16 06:55 Dose: 4 mg Pantoprazole Sodium (Protonix Inj) 40 mg IVP DAILY [facility] Thiamine HCl (Vitamin B1 Tab) 100 mg PO DAILY [facility] Physical Exam - Constitutional Appears: Non-toxic, No Acute Distress - Head Exam Head Exam: ATRAUMATIC, NORMOCEPHALIC - Eye Exam Eye Exam: EOMI, PERRL Pupil Exam: PERRL. absent: Miosis, Mydriatic - ENT Exam ENT Exam: Mucous Membranes Moist, Normal Oropharynx - Neck Exam Neck exam: Positive for: Full Rom, Normal Inspection - Respiratory Exam Respiratory Exam: Clear to Auscultation Bilateral. absent: Rales, Rhonchi, Wheezes - Cardiovascular Exam Cardiovascular Exam: RRR, +S1, +S2. absent: Gallop, Rubs - GI/Abdominal Exam GI & Abdominal Exam: Normal Bowel Sounds, Soft. absent: Distended, Firm, Guarding, Organomegaly, Rebound, Rigid, Tenderness - Extremities Exam Extremities exam: Positive for: normal inspection. Negative for: pedal edema - Neurological Exam Neurological exam: Alert - Skin Skin Exam: Dry, Intact, Normal Color, Warm Results - Vital Signs Recent Vital Signs: Last Vital Signs Temp 99 F 07/15/16 00:01 Pulse 102 H 07/15/16 00:01 Resp 20 07/15/16 00:01 BP 115/73 07/15/16 00:01 Pulse Ox 98 07/15/16 00:01 - Labs Result Diagrams: 07/15/16 06:50 07/15/16 06:50 Labs: Laboratory Results - last 24 hr 07/14/16 20:00 Urine Color Yellow Urine Appearance Clear Urine pH 6.0 Ur Specific [place] 1.015 Urine Protein Trace H Urine Glucose (UA) Negative Urine Ketones Negative Urine Blood Negative Urine Nitrate Negative Urine Bilirubin Negative Urine Urobilinogen 0.2 Ur Leukocyte Esterase Negative Urine RBC 0 - 2 Urine WBC 0 - 2 Ur Epithelial Cells 0 - 2 Assessment & Plan - Assessment and Plan (Free Text) Assessment: 55 year old male with history of COPD, Alcohol Abuse, recurrent Upper GI bleed, and LA Grade D esophagitis with ulcerations presenting with coffee ground emesis. Active treatment of alcohol withdrawal with last drink of two 24-oz beers prior to ER presentation. Admits to noncompliance to Protonix since last EGD 04/2016 showed LA Grade D esophagitis at GE junction, LA Grade C at 26cm from incisors, and GE ulcerations. No prior colonoscopy. Plan: >known history of LA Grade D esophagitis >no overt GI blood loss >no signs of active bleed >H/H stable >Protonix BID >clear liquid diet >alcohol cessation counselling >counselled on compliance to PPI >elective colonoscopy outpatient for CRC screening >thank you for opportunity to participate in the care of this patient <Sachin Monsivais - Last Filed: 07/15/16 12:23> Meds - Medications Medications: Current Medications Chlordiazepoxide (Librium) 50 mg PO Q4H [facility] Last Admin: 07/15/16 11:12 Dose: 50 mg Folic Acid (Folic Acid) 1 mg PO DAILY [facility] Last Admin: 07/15/16 09:38 Dose: 1 mg Multivitamins/Vitamin C 10 ml/Thiamine HCl 100 mg/ Folic Acid 1 mg/ Sodium Chloride 1,011.2 mls @ 100 mls/hr IV .Q10H7M ONE Stop: 07/16/16 08:06 Lorazepam (Ativan) 1 mg IVP Q4H PRN PRN Reason: Symptoms of alcohol withdrawl Last Admin: 07/14/16 22:44 Dose: 1 mg Multivitamins (Thera Tab) 1 tab PO DAILY [facility] Last Admin: 07/15/16 09:38 Dose: 1 tab Ondansetron HCl (Zofran Inj) 4 mg IVP Q4H PRN PRN Reason: Nausea/Vomiting Last Admin: 07/15/16 06:55 Dose: 4 mg Pantoprazole Sodium (Protonix Inj) 40 mg IVP Q12 [facility] Last Admin: 07/15/16 09:38 Dose: 40 mg Thiamine HCl (Vitamin B1 Tab) 100 mg PO DAILY [facility] Last Admin: 07/15/16 09:38 Dose: 100 mg Results - Vital Signs Recent Vital Signs: Last Vital Signs Temp 99 F 07/15/16 00:01 Pulse 102 H 07/15/16 00:01 Resp 20 07/15/16 00:01 BP 115/73 07/15/16 00:01 Pulse Ox 98 07/15/16 00:01 - Labs Result Diagrams: 07/15/16 06:50 07/15/16 06:50 Labs: Laboratory Results - last 24 hr 07/14/16 07/15/16 20:00 06:50 WBC 7.3 D RBC 4.67 Hgb 11.5 L Hct 35.7 L MCV 76.4 L MCH 24.6 L MCHC 32.2 RDW 19.6 H Plt Count 137 MPV 9.3 Gran % 64.2 Lymph % (Auto) 21.1 L [place] % (Auto) 13.6 H Eos % (Auto) 0.8 L Baso % (Auto) 0.3 Gran # 4.69 Lymph # 1.5 [place] # 1.0 H Eos # 0.1 Baso # 0.02 PT 12.6 H INR 1.17 H Sodium 135 Potassium 3.6 Chloride 96 Carbon Dioxide 30 Anion Gap 13 BUN 9 Creatinine 0.8 Est GFR ( Amer) > 60 Est GFR (Non-Af Amer) > 60 Random Glucose 101 Calcium 8.8 Total Bilirubin 1.3 AST 80 H ALT 45 Alkaline Phosphatase 117 Troponin I 0.02 D Total Protein 7.5 Albumin 3.8 Globulin 3.7 Albumin/Globulin Ratio 1.0 L Urine Color Yellow Urine Appearance Clear Urine pH 6.0 Ur Specific [place] 1.015 Urine Protein Trace H Urine Glucose (UA) Negative Urine Ketones Negative Urine Blood Negative Urine Nitrate Negative Urine Bilirubin Negative Urine Urobilinogen 0.2 Ur Leukocyte Esterase Negative Urine RBC 0 - 2 Urine WBC 0 - 2 Ur Epithelial Cells 0 - 2 Attending/Attestation - Attestation I have personally seen and examined this patient.: Yes I have fully participated in the care of the patient.: Yes I have reviewed all pertinent clinical information: Yes Notes (Text): 07/15/16 12:21 55 year old male with history of COPD,active EtOH abuse, h/o erosive esophagitis who presents with recurrent coffee ground emesis in the setting of active alcohol abuse and medical non-compliance. 1. Erosive esophagitis Plan: -no signs of active bleeding / hemoglobin stable -recommend acid suppressive therapy, with BID PPI -avoid nsaids/alcohol -diet as tolerated -will sign off
[2016-07-15 07:47] LABS: ADD MANUAL DIFF? NO
[2016-07-15 07:53] LABS: BASO # 0.02 K/mm3 (0.0-2.0); BASO % 0.3 % (0.0-3.0); EOS # 0.1 (0.0-0.7); EOS % 0.8 % (1.5-5.0); GRAN # 4.69 (1.4-6.5); GRAN % 64.2 % (50.0-68.0); HEMATOCRIT 35.7 % (42.0-52.0); LYMPH # 1.5 (1.2-3.4); LYMPH % 21.1 % (22.0-35.0); MEAN CELL VOLUME 76.4 fL (80.0-105.0); MEAN CORPUSCULAR HEMOGLOBIN 24.6 pg (25.0-35.0); MEAN CORPUSCULAR HGB CONC 32.2 g/dl (31.0-37.0); MEAN PLATELET VOLUME 9.3 fl (7.0-11.0); MONO % 13.6 % (1.0-6.0); PLATELET COUNT 137 10^3/uL (120.0-450.0); RED CELL DISTRIBUTION WIDTH 19.6 % (11.5-14.5); WHITE BLOOD COUNT 7.3 10^3/ul (4.5-11.0)
[2016-07-15 08:03] LABS: INR 1.17 (0.93-1.08)
--- NOTE | 2016-07-15 08:29 | RAD ---
HISTORY: chest pain COMPARISON: 04/22/2016 FINDINGS: LUNGS: No active pulmonary disease. PLEURA: No significant pleural effusion identified, no pneumothorax apparent. CARDIOVASCULAR: Normal. OSSEOUS STRUCTURES: No significant abnormalities. VISUALIZED UPPER ABDOMEN: Normal. OTHER FINDINGS: None. IMPRESSION: No active disease.
[2016-07-15 09:20] LABS: ALKALINE PHOSPHATASE 117 U/L (38-133); ALT/SGPT 45 U/L (7-56); AST/SGOT 80 U/L (15-59); BILIRUBIN,TOTAL 1.3 mg/dL (0.2-1.3); BLOOD UREA NITROGEN 9 mg/dL (7-21); CALCIUM 8.8 mg/dL (8.4-10.5); CARBON DIOXIDE 30 mmol/L (21-33); CHLORIDE 96 mmol/L (95-110); GFR AFRICAN-AMERICAN > 60; GLUCOSE,RANDOM 101 mg/dL (70-110); POTASSIUM 3.6 mmol/L (3.6-5.0); SODIUM 135 mmol/L (132-148); TOTAL PROTEIN 7.5 g/dL (5.8-8.3)
[2016-07-15 09:33] LABS: TROPONIN I 0.02 ng/mL
[2016-07-15] MEDS: Multivitamin Therapeutic Tab PO SCH (09:38)
--- NOTE | 2016-07-15 10:20 | CARD ---
APPROVED REPORT EKG Measurement Heart [id number] <Conclusion> Normal sinus rhythm Normal ECG
[2016-07-15] MEDS ORDERED: Albuterol-Ipratrop 3 mg / 0.5 (3 ml) UD IH PRN (12:23)
--- NOTE | 2016-07-15 12:27 | CP.PCM.PN ---
<Hi Mcfarlane - Last Filed: 07/15/16 12:24> Subjective - Date & Time of Evaluation Date of Evaluation: 07/15/16 Time of Evaluation: 07:40 - Subjective Subjective: Hospitalist Progress Note: Pt seen and examined at bedside. No acute events overnight. Pt c/o of 2 episodes of coffee ground emesis overnight. No other complaints. Denies any headaches, dizziness, f/c, sob, cp, palpitations, abd pain, urinary or bm changes. Objective - Vital Signs/Intake and Output Vital Signs (last 24 hours): Temp Pulse Resp BP Pulse Ox 99 F 102 H 20 115/73 98 07/15/16 00:01 07/15/16 00:01 07/15/16 00:01 07/15/16 00:01 07/15/16 00:01 Intake and Output: 07/15/16 07/15/16 06:59 18:59 Intake Total 0 Output Total 0 Balance 0 - Medications Medications: Current Medications Albuterol/Ipratropium (Duoneb 3 Mg/0.5 Mg (3 Ml) Ud) 3 ml IH [id number] PRN PRN Reason: Shortness of Breath Chlordiazepoxide (Librium) 25 mg PO Q8H [facility] Folic Acid (Folic Acid) 1 mg PO DAILY [facility] Last Admin: 07/15/16 09:38 Dose: 1 mg Multivitamins/Vitamin C 10 ml/Thiamine HCl 100 mg/ Folic Acid 1 mg/ Sodium Chloride 1,011.2 mls @ 100 mls/hr IV .Q10H7M ONE Stop: 07/16/16 08:06 Lorazepam (Ativan) 2 mg IVP Q2H PRN PRN Reason: Symptoms of alcohol withdrawl Multivitamins (Thera Tab) 1 tab PO DAILY [facility] Last Admin: 07/15/16 09:38 Dose: 1 tab Ondansetron HCl (Zofran Inj) 4 mg IVP Q4H PRN PRN Reason: Nausea/Vomiting Last Admin: 07/15/16 06:55 Dose: 4 mg Pantoprazole Sodium (Protonix Inj) 40 mg IVP Q12 [facility] Last Admin: 07/15/16 09:38 Dose: 40 mg Thiamine HCl (Vitamin B1 Tab) 100 mg PO DAILY [facility] Last Admin: 07/15/16 09:38 Dose: 100 mg - Labs Labs: 07/15/16 06:50 07/15/16 06:50 PT 12.6 Seconds (9.9-11.8) H 07/15/16 06:50 INR 1.17 (0.93-1.08) H 07/15/16 06:50 - Constitutional Appears: No Acute Distress - Head Exam Head Exam: ATRAUMATIC, NORMAL INSPECTION, NORMOCEPHALIC - Eye Exam Eye Exam: EOMI, Normal appearance, PERRL Pupil Exam: NORMAL ACCOMODATION, PERRL - ENT Exam ENT Exam: Mucous Membranes Moist, Normal Exam - Neck Exam Neck Exam: Full ROM, Normal Inspection. absent: Lymphadenopathy - Respiratory Exam Respiratory Exam: Clear to Ausculation Bilateral, NORMAL BREATHING PATTERN. absent: Rales, Wheezes - Cardiovascular Exam Cardiovascular Exam: REGULAR RHYTHM, +S1, +S2. absent: Murmur - GI/Abdominal Exam GI & Abdominal Exam: Soft. absent: Distended, Tenderness - Extremities Exam Extremities Exam: Full ROM, Normal Capillary Refill, Normal Inspection. absent : Joint Swelling, Pedal Edema - Back Exam Back Exam: NORMAL INSPECTION - Neurological Exam Neurological Exam: Alert, Awake, CN II-XII Intact, Normal Gait, Oriented x3 - Psychiatric Exam Psychiatric exam: Normal Affect, Normal Mood - Skin Skin Exam: Dry, Intact, Normal Color, Warm Assessment and Plan - Assessment and Plan (Free Text) Assessment: 55 M with pmh of alcoholism, chronic pancreatitis, erosive esophagitis, gastritis, COPD and anemia admitted for hematemesis and alcohol intoxication. 1. Hematemesis - stable - Hx of erosive esophagitis - NPO --> trial of CLD - Hgb 11.5- will continue to monitor - GI consulted - rec Protonix 40mg PO BID, NPO to CLD, no endoscopic intervention at this time - IV Fluids (banana bag) - Zofran prn nausea 2. ETOH abuse - Alcohol level- 269 - CIWA protocol - aspiration and seizure precaution - neuro check q4h - Ativan 2mg q2h prn - Librum 25mg PO Q8H - Banana bag - Thiamine, multivitamin, folic acid after banana bag - f/u daily Mg & P 3. Chest pain - most likely secondary to vomiting - Troponin negative x2 - EKG showed NSR - CXR - No active dx 4. Hyponatremia - resolved - Na 129 --> 135 today - cont to monitor 5. Chronic pancreatitis - Lipase in 400s, around baseline - IV fluids - afebrile, no leukocytosis 6. Hx of COPD - Duonebs prn - NC 2L prn - maintain spO2>90 7. GI ppx: Protonix DVT ppx: SCDs Case and plan was seen, reviewed, and discussed in detail with Dr Chung. <Jessica Chung - Last Filed: 07/15/16 17:34> Objective - Vital Signs/Intake and Output Vital Signs (last 24 hours): Temp Pulse Resp BP Pulse Ox 97.1 F L 84 20 130/89 98 07/15/16 12:00 07/15/16 12:00 07/15/16 12:00 07/15/16 12:00 07/15/16 00:01 Intake and Output: 07/15/16 07/15/16 06:59 18:59 Intake Total 0 660 Output Total 0 Balance 0 660 - Medications Medications: Current Medications Albuterol/Ipratropium (Duoneb 3 Mg/0.5 Mg (3 Ml) Ud) 3 ml IH [id number] PRN PRN Reason: Shortness of Breath Chlordiazepoxide (Librium) 25 mg PO Q8H [facility] Last Admin: 07/15/16 12:51 Dose: 25 mg Folic Acid (Folic Acid) 1 mg PO DAILY [facility] Last Admin: 07/15/16 09:38 Dose: 1 mg Multivitamins/Vitamin C 10 ml/Thiamine HCl 100 mg/ Folic Acid 1 mg/ Sodium Chloride 1,011.2 mls @ 100 mls/hr IV .Q10H7M ONE Stop: 07/16/16 08:06 Lorazepam (Ativan) 2 mg IVP Q2H PRN PRN Reason: Symptoms of alcohol withdrawl Multivitamins (Thera Tab) 1 tab PO DAILY [facility] Last Admin: 07/15/16 09:38 Dose: 1 tab Ondansetron HCl (Zofran Inj) 4 mg IVP Q4H PRN PRN Reason: Nausea/Vomiting Last Admin: 07/15/16 06:55 Dose: 4 mg Pantoprazole Sodium (Protonix Inj) 40 mg IVP Q12 [facility] Last Admin: 07/15/16 09:38 Dose: 40 mg Thiamine HCl (Vitamin B1 Tab) 100 mg PO DAILY [facility] Last Admin: 07/15/16 09:38 Dose: 100 mg - Labs Labs: 07/15/16 06:50 07/15/16 06:50 PT 12.6 Seconds (9.9-11.8) H 07/15/16 06:50 INR 1.17 (0.93-1.08) H 07/15/16 06:50 Attending/Attestation - Attestation I have personally seen and examined this patient.: Yes I have fully participated in the care of the patient.: Yes I have reviewed all pertinent clinical information, including history, physical exam and plan: Yes Notes (Text): I have seen and examined the patient with the resident at the bedside. Agree with the above note with the following additions/ exceptions: This is a 55 year old male with history of alcohol abuse, tobacco use, copd, chronic pancreatitis, esophagitis, gastritis who got admitted for evaluation of hematemesis. Endoscopy during previous admission revealed esophagitis, gastritis and esophageal stenosis. There is no vomiting since this morning and denies abdominal pain, headache, anxiety, diaphoresis and admits to mild auditory hallucinations and mild tremors. Patient will be started on clear liquid diet. GI consult appreciated. Plan for po potonix and no endoscopic intervention required at this time. His last alcohol drink was yesterday. BAL upon admission was >200. Will start banana bag with NS, thiamine, MVI and folic acid. Will decrease librium dose to 25 q8. Serial troponin is negative. EKG and CXR is normal. Patient also had fever overnight. Urine culture was sent. Will check blood culture and procal. Will not start antibiotic as he had isolated episode of fever. Complete alcohol cessation is advised. Upon discharge the patient will follow-up with [facility] clinic. Dr Jessica Chung
[2016-07-15 12:49] LABS: MAGNESIUM 1.8 mg/dL (1.7-2.2); PHOSPHOROUS 3.2 mg/dL (2.5-4.5)
[2016-07-15] MEDS ORDERED: Multivitamin (MVI) 10 ML, Thiamine 100 MG, Folic Acid 1 MG in Sodium Chloride 0.9% 1,00... IV ONE (22:00)
[2016-07-16 06:50] LABS: ADD MANUAL DIFF? NO; BASO # 0.02 K/mm3 (0.0-2.0); BASO % 0.3 % (0.0-3.0); EOS # 0.2 (0.0-0.7); EOS % 2.6 % (1.5-5.0); GRAN # 5.78 (1.4-6.5); GRAN % 75.5 % (50.0-68.0); LYMPH % 12.7 % (22.0-35.0); MEAN CELL VOLUME 77.1 fL (80.0-105.0); MEAN CORPUSCULAR HEMOGLOBIN 24.8 pg (25.0-35.0); MEAN CORPUSCULAR HGB CONC 32.2 g/dl (31.0-37.0); MEAN PLATELET VOLUME 9.6 fl (7.0-11.0); MONO # 0.7 (0.1-0.6); MONO % 8.9 % (1.0-6.0); PLATELET COUNT 105 10^3/uL (120.0-450.0); RED CELL DISTRIBUTION WIDTH 19.4 % (11.5-14.5); WHITE BLOOD COUNT 7.7 10^3/ul (4.5-11.0)
[2016-07-16 06:55] LABS: INR 1.23 (0.93-1.08)
[2016-07-16 07:17] LABS: ALKALINE PHOSPHATASE 114 U/L (38-133); ALT/SGPT 50 U/L (7-56); AST/SGOT 72 U/L (15-59); BILIRUBIN,TOTAL 1.5 mg/dL (0.2-1.3); BLOOD UREA NITROGEN 8 mg/dL (7-21); CALCIUM 8.7 mg/dL (8.4-10.5); CARBON DIOXIDE 28 mmol/L (21-33); CHLORIDE 90 mmol/L (98-107); GFR AFRICAN-AMERICAN > 60; GLUCOSE,RANDOM 112 mg/dL (70-110); MAGNESIUM 1.5 mg/dL (1.7-2.2); PHOSPHOROUS 2.8 mg/dL (2.5-4.5); POTASSIUM 3.5 mmol/L (3.6-5.0); SODIUM 129 mmol/L (132-148)
[2016-07-16] MEDS ORDERED: Magnesium Sulfate 2 GM in Sodium Chloride 0.9% 100 ML IVPB ONE (08:50)
[2016-07-16] MEDS ORDERED: Potassium Chloride 40 mEq/30 ml LIQ UD PO ONE (08:51)
--- NOTE | 2016-07-16 09:13 | CP.PCM.PN ---
<Hi Mcfarlane - Last Filed: 07/16/16 10:42> Subjective - Date & Time of Evaluation Date of Evaluation: 07/16/16 Time of Evaluation: 07:00 - Subjective Subjective: Hospitalist Progress Note: Pt seen and examined at bedside. No acute events overnight. Pt denies any further episodes of vomiting but admits to nausea. He also complains of shakes which he associates with his withdrawals. was given Ativan 2mg x 2 overnight. No other complaints. He denies any headaches, dizziness, f/c, sob, cp, palpitations, abd pain, urinary or bm changes. Objective - Vital Signs/Intake and Output Vital Signs (last 24 hours): Temp Pulse Resp BP Pulse Ox 99.4 F 89 20 126/80 98 07/16/16 00:01 07/16/16 02:00 07/16/16 00:01 07/16/16 00:01 07/15/16 00:01 Intake and Output: 07/16/16 07/16/16 06:59 18:59 Intake Total 420 Balance 420 - Medications Medications: Current Medications Albuterol/Ipratropium (Duoneb 3 Mg/0.5 Mg (3 Ml) Ud) 3 ml IH [id number] PRN PRN Reason: Shortness of Breath Chlordiazepoxide (Librium) 25 mg PO Q8H [facility] Last Admin: 07/16/16 04:07 Dose: 25 mg Folic Acid (Folic Acid) 1 mg PO DAILY [facility] Last Admin: 07/15/16 09:38 Dose: 1 mg Magnesium Sulfate 2 gm/ Sodium (Chloride) 104 mls @ 102 mls/hr IVPB ONCE ONE Stop: 07/16/16 09:51 Lorazepam (Ativan) 2 mg IVP Q2H PRN PRN Reason: Symptoms of alcohol withdrawl Last Admin: 07/16/16 00:37 Dose: 2 mg Multivitamins (Thera Tab) 1 tab PO DAILY [facility] Last Admin: 07/15/16 09:38 Dose: 1 tab Ondansetron HCl (Zofran Inj) 4 mg IVP Q4H PRN PRN Reason: Nausea/Vomiting Last Admin: 07/15/16 22:24 Dose: 4 mg Pantoprazole Sodium (Protonix Inj) 40 mg IVP Q12 [facility] Last Admin: 04/24/17 22:22 Dose: 40 mg Thiamine HCl (Vitamin B1 Tab) 100 mg PO DAILY [facility] Last Admin: 07/15/16 09:38 Dose: 100 mg - Labs Labs: 07/16/16 05:00 07/16/16 06:30 PT 13.3 Seconds (9.9-11.8) H 07/16/16 05:00 INR 1.23 (0.93-1.08) H 07/16/16 05:00 - Constitutional Appears: No Acute Distress - Head Exam Head Exam: ATRAUMATIC, NORMAL INSPECTION, NORMOCEPHALIC - Eye Exam Eye Exam: EOMI, Normal appearance, PERRL Pupil Exam: NORMAL ACCOMODATION, PERRL - ENT Exam ENT Exam: Mucous Membranes Moist, Normal Exam - Neck Exam Neck Exam: Full ROM, Normal Inspection. absent: Lymphadenopathy - Respiratory Exam Respiratory Exam: Clear to Ausculation Bilateral, NORMAL BREATHING PATTERN. absent: Rales, Wheezes - Cardiovascular Exam Cardiovascular Exam: REGULAR RHYTHM, RRR, +S1, +S2. absent: Murmur - GI/Abdominal Exam GI & Abdominal Exam: Soft, Normal Bowel Sounds. absent: Distended, Tenderness - Extremities Exam Extremities Exam: Full ROM, Normal Capillary Refill, Normal Inspection. absent : Joint Swelling, Pedal Edema - Back Exam Back Exam: NORMAL INSPECTION - Neurological Exam Neurological Exam: Alert, Awake, Oriented x3 - Psychiatric Exam Psychiatric exam: Anxious (tremors ), Normal Affect, Normal Mood - Skin Skin Exam: Dry, Intact, Normal Color, Warm Assessment and Plan - Assessment and Plan (Free Text) Assessment: 55 M with pmh of alcoholism, chronic pancreatitis, erosive esophagitis, gastritis, COPD and anemia admitted for hematemesis and alcohol intoxication. 1. Hematemesis - stable - Hx of erosive esophagitis - Tolerating CLD --> full liquids - Hgb 11.5---> 10.3 will continue to monitor - GI consulted - rec Protonix 40mg PO BID, no endoscopic intervention at this time - Protonix changed to pepcid due to thrombocytopenia - 175--> 137--> 105 - IV Fluids (banana bag) - Zofran prn for nausea 2. ETOH abuse - Alcohol level- 269 - [facility] protocol - aspiration and seizure precaution - neuro check q4h - Ativan 2mg q2h prn - Librum 25mg PO Q8H - Banana bag - Thiamine, multivitamin, folic acid after banana bag - Daily Mg & P 3. Chest pain - most likely secondary to vomiting - Troponin negative x2 - EKG showed NSR - CXR - No active dx 4. Hyponatremia - Na 129 --> 135 --> 129 today - cont to monitor 5. Chronic pancreatitis - Lipase in 400s, around baseline - IV fluids - afebrile, no leukocytosis 6. Hypokalemia - K of 3.5 - KCL 40meq repleted this am 7. Hypomagnesemia - Mg of 1.5 - Mag sulphate 2mg repleted this am 8. Anemia - Likely Iron def anemia - Ordered 1 dose of Iron sucrose this AM 9. Hx of COPD - Duonebs prn - NC 2L prn - maintain spO2>90 10. GI ppx: Pepcid DVT ppx: SCDs Case and plan was seen, reviewed, and discussed in detail with Dr Chung. <Jessica Chung - Last Filed: 07/16/16 21:42> Objective - Vital Signs/Intake and Output Vital Signs (last 24 hours): Temp Pulse Resp BP Pulse Ox 99 F 90 18 110/76 98 07/16/16 18:00 07/16/16 18:00 07/16/16 18:00 07/16/16 18:00 07/15/16 00:01 Intake and Output: 07/16/16 07/17/16 18:59 06:59 Intake Total 900 Output Total 700 Balance 200 - Medications Medications: Current Medications Albuterol/Ipratropium (Duoneb 3 Mg/0.5 Mg (3 Ml) Ud) 3 ml IH [id number] PRN PRN Reason: Shortness of Breath Chlordiazepoxide (Librium) 25 mg PO Q8H [facility] Last Admin: 07/16/16 21:25 Dose: 25 mg Famotidine (Pepcid) 40 mg PO BID [facility] Last Admin: 07/16/16 17:13 Dose: 40 mg Folic Acid (Folic Acid) 1 mg PO DAILY [facility] Last Admin: 07/16/16 09:48 Dose: 1 mg Lorazepam (Ativan) 2 mg IVP Q2H PRN PRN Reason: Symptoms of alcohol withdrawl Last Admin: 07/16/16 21:26 Dose: 2 mg Multivitamins (Thera Tab) 1 tab PO DAILY [facility] Last Admin: 07/16/16 09:48 Dose: 1 tab Ondansetron HCl (Zofran Inj) 4 mg IVP Q4H PRN PRN Reason: Nausea/Vomiting Last Admin: 07/15/16 22:24 Dose: 4 mg Thiamine HCl (Vitamin B1 Tab) 100 mg PO DAILY [facility] Last Admin: 07/16/16 09:48 Dose: 100 mg - Labs Labs: 07/16/16 05:00 07/16/16 06:30 PT 13.3 Seconds (9.9-11.8) H 07/16/16 05:00 INR 1.23 (0.93-1.08) H 07/16/16 05:00 Attending/Attestation - Attestation I have personally seen and examined this patient.: Yes I have fully participated in the care of the patient.: Yes I have reviewed all pertinent clinical information, including history, physical exam and plan: Yes Notes (Text): I have seen and examined the patient with the resident at the bedside. Agree with the above note with the following additions/ exceptions: This is a 55 year old male with history of alcohol abuse, tobacco use, copd, chronic pancreatitis, esophagitis, gastritis who got admitted for evaluation of hematemesis. Endoscopy during previous admission revealed esophagitis, gastritis and esophageal stenosis. Patient is alert, awake and oriented x3. Reports tremors, anxiety, diaphoresis, auditory hallucinations however denies any vomiting. During his previous visits , he was noticed to havee self induced vomiting. As patient has been tolerating clear liquid diet, will advance diet to full liquids. Continue banana bag, ativan and librium. Patient was also noticed to have thrombocytopenia most likely due to alcohol induced bone marrow suppression. Counselling provided regarding alcohol use. Start pepcid. Upon discharge the patient will follow-up with [facility] clinic and [facility] clinic for repeat endoscopy. Dr Jessica Chung
[2016-07-16] MEDS: Multivitamin Therapeutic Tab PO SCH (09:48)
[2016-07-16] MEDS ORDERED: Multivitamin (MVI) 10 ML, Thiamine 100 MG, Folic Acid 1 MG in Sodium Chloride 0.9% 1,00... IV ONE (10:39)
[2016-07-17 07:15] LABS: ADD MANUAL DIFF? NO
[2016-07-17 07:21] LABS: BASO # 0.01 K/mm3 (0.0-2.0); BASO % 0.2 % (0.0-3.0); EOS # 0.3 (0.0-0.7); EOS % 5.5 % (1.5-5.0); GRAN # 3.22 (1.4-6.5); GRAN % 60.7 % (50.0-68.0); HEMATOCRIT 31.4 % (42.0-52.0); LYMPH # 1.2 (1.2-3.4); LYMPH % 22.3 % (22.0-35.0); MEAN CELL VOLUME 78.1 fL (80.0-105.0); MEAN CORPUSCULAR HEMOGLOBIN 24.6 pg (25.0-35.0); MEAN CORPUSCULAR HGB CONC 31.5 g/dl (31.0-37.0); MONO # 0.6 (0.1-0.6); MONO % 11.3 % (1.0-6.0); PLATELET COUNT 113 10^3/uL (120.0-450.0); RED CELL DISTRIBUTION WIDTH 19.5 % (11.5-14.5); WHITE BLOOD COUNT 5.3 10^3/ul (4.5-11.0)
[2016-07-17 07:29] LABS: INR 1.21 (0.93-1.08)
[2016-07-17 07:42] LABS: ALB/GLOB RATIO 0.9 (1.1-1.8); ALKALINE PHOSPHATASE 103 U/L (38-133); ALT/SGPT 40 U/L (7-56); AST/SGOT 56 U/L (15-59); BILIRUBIN,TOTAL 1.1 mg/dL (0.2-1.3); BLOOD UREA NITROGEN 5 mg/dL (7-21); CALCIUM 8.8 mg/dL (8.4-10.5); CARBON DIOXIDE 27 mmol/L (21-33); CHLORIDE 99 mmol/L (95-110); GFR AFRICAN-AMERICAN > 60; GLUCOSE,RANDOM 92 mg/dL (70-110); MAGNESIUM 1.9 mg/dL (1.7-2.2); PHOSPHOROUS 2.9 mg/dL (2.5-4.5); POTASSIUM 3.4 mmol/L (3.6-5.0); SODIUM 138 mmol/L (132-148); TOTAL PROTEIN 7.2 g/dL (5.8-8.3)
[2016-07-17] MEDS ORDERED: Potassium Chloride 40 mEq/30 ml LIQ UD PO ONE (09:20)
[2016-07-17] MEDS: Multivitamin Therapeutic Tab PO SCH (10:55)
--- NOTE | 2016-07-17 13:06 | CP.PCM.PN ---
<Hi Mcfarlane - Last Filed: 07/17/16 13:03> Subjective - Date & Time of Evaluation Date of Evaluation: 07/17/16 Time of Evaluation: 07:10 - Subjective Subjective: Hospitalist Progress Note: Pt seen and examined at bedside. No acute events overnight. He c/o of being anxious and having tremors due to his withdrawals. Ativan and Librium was used through out the night to alleviate his symptoms. He also c/o nausea but denies any vomiting. No other complaints. He denies any headaches, dizziness, f/c, sob , cp, palpitations, abd pain, urinary or bm changes. Objective - Vital Signs/Intake and Output Vital Signs (last 24 hours): Temp Pulse Resp BP Pulse Ox 98.1 F 95 H 20 124/79 97 07/17/16 11:44 07/17/16 11:44 07/17/16 11:44 07/17/16 11:44 07/17/16 06:00 Intake and Output: 07/17/16 07/17/16 06:59 18:59 Intake Total 3280 Output Total 3540 Balance -260 - Medications Medications: Current Medications Albuterol/Ipratropium (Duoneb 3 Mg/0.5 Mg (3 Ml) Ud) 3 ml IH [id number] PRN PRN Reason: Shortness of Breath Chlordiazepoxide (Librium) 50 mg PO Q4 [facility] Famotidine (Pepcid) 40 mg PO BID [facility] Last Admin: 07/17/16 10:55 Dose: 40 mg Folic Acid (Folic Acid) 1 mg PO DAILY [facility] Last Admin: 07/17/16 10:54 Dose: 1 mg Lorazepam (Ativan) 3 mg IVP Q2H PRN PRN Reason: Symptoms of alcohol withdrawl Last Admin: 07/17/16 10:54 Dose: 3 mg Multivitamins (Thera Tab) 1 tab PO DAILY [facility] Last Admin: 07/17/16 10:55 Dose: 1 tab Ondansetron HCl (Zofran Inj) 4 mg IVP Q4H PRN PRN Reason: Nausea/Vomiting Last Admin: 07/16/16 21:45 Dose: 4 mg Thiamine HCl (Vitamin B1 Tab) 100 mg PO DAILY [facility] Last Admin: 07/17/16 10:55 Dose: 100 mg Ziprasidone (Geodon Inj) 10 mg IM Q12 PRN; Protocol PRN Reason: Agitation Last Admin: 07/17/16 12:37 Dose: 10 mg - Labs Labs: 07/17/16 06:30 07/17/16 06:30 PT 13.1 Seconds (9.9-11.8) H 07/17/16 06:30 INR 1.21 (0.93-1.08) H 07/17/16 06:30 - Constitutional Appears: No Acute Distress - Head Exam Head Exam: ATRAUMATIC, NORMAL INSPECTION, NORMOCEPHALIC - Eye Exam Eye Exam: EOMI, Normal appearance, PERRL Pupil Exam: NORMAL ACCOMODATION, PERRL - ENT Exam ENT Exam: Mucous Membranes Moist, Normal Exam - Neck Exam Neck Exam: Full ROM, Normal Inspection. absent: Lymphadenopathy - Respiratory Exam Respiratory Exam: Clear to Ausculation Bilateral, NORMAL BREATHING PATTERN. absent: Rales, Wheezes - Cardiovascular Exam Cardiovascular Exam: REGULAR RHYTHM, +S1, +S2. absent: Murmur - GI/Abdominal Exam GI & Abdominal Exam: Soft. absent: Distended, Tenderness - Extremities Exam Extremities Exam: Full ROM, Normal Capillary Refill, Normal Inspection. absent : Joint Swelling, Pedal Edema - Back Exam Back Exam: NORMAL INSPECTION - Neurological Exam Neurological Exam: Alert, Awake, Oriented x3 - Psychiatric Exam Psychiatric exam: Agitated, Anxious, Normal Affect, Normal Mood - Skin Skin Exam: Dry, Intact, Normal Color, Warm Assessment and Plan - Assessment and Plan (Free Text) Assessment: 55 M with pmh of alcoholism, chronic pancreatitis, erosive esophagitis, gastritis, COPD and anemia admitted for hematemesis and alcohol intoxication. 1. Hematemesis - stable - Hx of erosive esophagitis - Tolerating full liquids - Hgb 11.5---> 10.3--> 9.9 will continue to monitor - GI consulted - rec Protonix 40mg PO BID, no endoscopic intervention at this time - Protonix changed to pepcid due to thrombocytopenia - 175--> 137--> 105 - IV Fluids (banana bag) - Zofran prn for nausea 2. ETOH abuse - withdawals - Ativan 2mg--> 3mg q2h prn - Librum 25mg --> 50mg PO Q8H - Alcohol level- 269 - [facility] protocol - aspiration and seizure precaution - neuro check q4h - Banana bag - Thiamine, multivitamin, folic acid after banana bag - Daily Mg & P 3. Chest pain - most likely secondary to vomiting - Troponin negative x2 - EKG showed NSR - CXR - No active dx 4. Hyponatremia - resolved - Na 129 --> 135 --> 129 --> 138 today - cont to monitor 5. Chronic pancreatitis - Lipase in 400s, around baseline - IV fluids - afebrile, no leukocytosis 6. Hypokalemia - K of 3.4 this am - KCL 40meq repleted this am 7. Hypomagnesemia - Mg of 1.9 this am - replete as needed 8. Anemia - Likely Iron def anemia - s/p 2 dose of Iron sucrose 9. Hx of COPD - Duonebs prn - NC 2L prn - maintain spO2>90 10. GI ppx: Pepcid DVT ppx: SCDs - PT eval and treat Case and plan was seen, reviewed, and discussed in detail with Dr Chung. <Jessica Chung - Last Filed: 07/17/16 15:31> Objective - Vital Signs/Intake and Output Vital Signs (last 24 hours): Temp Pulse Resp BP Pulse Ox 98.1 F 95 H 20 124/79 97 07/17/16 11:44 07/17/16 11:44 07/17/16 11:44 07/17/16 11:44 07/17/16 06:00 Intake and Output: 07/17/16 07/17/16 06:59 18:59 Intake Total 3280 Output Total 3540 Balance -260 - Medications Medications: Current Medications Albuterol/Ipratropium (Duoneb 3 Mg/0.5 Mg (3 Ml) Ud) 3 ml IH [id number] PRN PRN Reason: Shortness of Breath Chlordiazepoxide (Librium) 50 mg PO Q4 [facility] Last Admin: 07/17/16 13:31 Dose: Not Given Famotidine (Pepcid) 40 mg PO BID [facility] Last Admin: 07/17/16 10:55 Dose: 40 mg Folic Acid (Folic Acid) 1 mg PO DAILY [facility] Last Admin: 07/17/16 10:54 Dose: 1 mg Lorazepam (Ativan) 3 mg IVP Q2H PRN PRN Reason: Symptoms of alcohol withdrawl Last Admin: 07/17/16 10:54 Dose: 3 mg Multivitamins (Thera Tab) 1 tab PO DAILY [facility] Last Admin: 07/17/16 10:55 Dose: 1 tab Ondansetron HCl (Zofran Inj) 4 mg IVP Q4H PRN PRN Reason: Nausea/Vomiting Last Admin: 07/16/16 21:45 Dose: 4 mg Thiamine HCl (Vitamin B1 Tab) 100 mg PO DAILY [facility] Last Admin: 07/17/16 10:55 Dose: 100 mg Ziprasidone (Geodon Inj) 10 mg IM Q12 PRN; Protocol PRN Reason: Agitation Last Admin: 07/17/16 12:37 Dose: 10 mg - Labs Labs: 07/17/16 06:30 07/17/16 06:30 PT 13.1 Seconds (9.9-11.8) H 07/17/16 06:30 INR 1.21 (0.93-1.08) H 07/17/16 06:30 Attending/Attestation - Attestation I have personally seen and examined this patient.: Yes I have fully participated in the care of the patient.: Yes I have reviewed all pertinent clinical information, including history, physical exam and plan: Yes Notes (Text): I have seen and examined the patient with the resident at the bedside. Agree with the above note with the following additions/ exceptions: This is a 55 year old male with history of alcohol abuse, tobacco use, copd, chronic pancreatitis, esophagitis, gastritis who got admitted for evaluation of hematemesis. Endoscopy during previous admission revealed esophagitis, gastritis and esophageal stenosis. Patient has been very agitated, restless, anxious, diaphoretic and tremulous. He thinks that he has to do laundy and was constanly trying to get out of the bed. Librium and ativan was given with not much effect. Carver and wrist restraints are on. Will increase librium and add geodon prn extreme agitation. Patient was also noticed to have thrombocytopenia most likely due to alcohol induced bone marrow suppression. Counselling provided regarding alcohol use. Continue pepcid. He will be transferred to remote telemetry today. Upon discharge the patient will follow-up with [facility] clinic and [facility] clinic for repeat endoscopy. Dr Jessica Chung
[2016-07-18 07:23] LABS: ADD MANUAL DIFF? NO
[2016-07-18 07:28] LABS: BASO # 0.01 K/mm3 (0.0-2.0); BASO % 0.2 % (0.0-3.0); EOS # 0.3 (0.0-0.7); EOS % 5.9 % (1.5-5.0); GRAN # 3.48 (1.4-6.5); GRAN % 66.1 % (50.0-68.0); HEMATOCRIT 34.2 % (42.0-52.0); LYMPH % 18.1 % (22.0-35.0); MEAN CELL VOLUME 78.4 fL (80.0-105.0); MEAN CORPUSCULAR HEMOGLOBIN 24.5 pg (25.0-35.0); MEAN CORPUSCULAR HGB CONC 31.3 g/dl (31.0-37.0); MEAN PLATELET VOLUME 9.8 fl (7.0-11.0); MONO # 0.5 (0.1-0.6); MONO % 9.7 % (1.0-6.0); PLATELET COUNT 122 10^3/uL (120.0-450.0); RED CELL DISTRIBUTION WIDTH 19.5 % (11.5-14.5); WHITE BLOOD COUNT 5.3 10^3/ul (4.5-11.0)
[2016-07-18 07:30] LABS: MAGNESIUM 1.8 mg/dL (1.7-2.2)
[2016-07-18 08:03] LABS: ALB/GLOB RATIO 0.9 (1.1-1.8); ALKALINE PHOSPHATASE 100 U/L (38-133); ALT/SGPT 43 U/L (7-56); AST/SGOT 50 U/L (15-59); BILIRUBIN,TOTAL 0.9 mg/dL (0.2-1.3); BLOOD UREA NITROGEN 5 mg/dL (7-21); CALCIUM 9.3 mg/dL (8.4-10.5); CARBON DIOXIDE 27 mmol/L (21-33); CHLORIDE 100 mmol/L (98-107); GFR AFRICAN-AMERICAN > 60; GLUCOSE,RANDOM 96 mg/dL (70-110); POTASSIUM 3.7 mmol/L (3.6-5.0); SODIUM 139 mmol/L (132-148); TOTAL PROTEIN 7.8 g/dL (5.8-8.3)
[2016-07-18] MEDS: Multivitamin Therapeutic Tab PO SCH (11:49)
--- NOTE | 2016-07-18 13:08 | CP.PCM.PN ---
Addendum entered and electronically signed by Hi Mcfarlane DO 07/18/16 13:25 : Additional Plan: Possible JAVIER as patient snoring heavily while sleep - rec f/u sleep study as an outpatient Hi Original Note: <Hi Mcfarlane - Last Filed: 07/18/16 13:02> Subjective - Date & Time of Evaluation Date of Evaluation: 07/18/16 Time of Evaluation: 07:15 - Subjective Subjective: Hospitalist Progress Note: Pt seen and examined at bedside. No acute events overnight. Pt was very anxious and restless overnight and had tremors due to his withdrawals. Geodon was administered. Pt currently very somnolent. ROS unobtainable. Objective - Vital Signs/Intake and Output Vital Signs (last 24 hours): Temp Pulse Resp BP Pulse Ox 97.1 F L 95 H 19 117/80 97 07/18/16 12:00 07/18/16 12:00 07/18/16 12:00 07/18/16 12:00 07/18/16 05:26 Intake and Output: 07/18/16 07/18/16 06:59 18:59 Intake Total 550 Output Total 400 Balance 150 - Medications Medications: Current Medications Albuterol/Ipratropium (Duoneb 3 Mg/0.5 Mg (3 Ml) Ud) 3 ml IH [id number] PRN PRN Reason: Shortness of Breath Chlordiazepoxide (Librium) 50 mg PO Q4 [facility] Last Admin: 07/18/16 05:25 Dose: Not Given Famotidine (Pepcid) 40 mg PO BID [facility] Last Admin: 07/18/16 11:49 Dose: 40 mg Folic Acid (Folic Acid) 1 mg PO DAILY [facility] Last Admin: 07/18/16 11:48 Dose: 1 mg Lorazepam (Ativan) 3 mg IVP Q2H PRN PRN Reason: Symptoms of alcohol withdrawl Last Admin: 07/18/16 00:39 Dose: 3 mg Multivitamins (Thera Tab) 1 tab PO DAILY [facility] Last Admin: 07/18/16 11:49 Dose: 1 tab Ondansetron HCl (Zofran Inj) 4 mg IVP Q4H PRN PRN Reason: Nausea/Vomiting Last Admin: 07/18/16 00:39 Dose: 4 mg Thiamine HCl (Vitamin B1 Tab) 100 mg PO DAILY [facility] Last Admin: 07/18/16 11:49 Dose: 100 mg Ziprasidone (Geodon Inj) 10 mg IM Q12 PRN; Protocol PRN Reason: Agitation Last Admin: 07/18/16 03:16 Dose: 10 mg - Labs Labs: 07/18/16 05:00 07/18/16 05:00 PT 13.1 Seconds (9.9-11.8) H 07/17/16 06:30 INR 1.21 (0.93-1.08) H 07/17/16 06:30 - Constitutional Appears: No Acute Distress - Head Exam Head Exam: ATRAUMATIC, NORMAL INSPECTION, NORMOCEPHALIC - Eye Exam Eye Exam: EOMI, Normal appearance, PERRL Pupil Exam: NORMAL ACCOMODATION, PERRL - ENT Exam ENT Exam: Mucous Membranes Moist, Normal Exam - Neck Exam Neck Exam: Full ROM, Normal Inspection. absent: Lymphadenopathy - Respiratory Exam Respiratory Exam: Clear to Ausculation Bilateral, NORMAL BREATHING PATTERN. absent: Rales, Wheezes - Cardiovascular Exam Cardiovascular Exam: REGULAR RHYTHM, RRR, +S1, +S2. absent: Murmur - GI/Abdominal Exam GI & Abdominal Exam: Soft. absent: Distended, Tenderness - Extremities Exam Extremities Exam: Full ROM, Normal Capillary Refill, Normal Inspection. absent : Joint Swelling, Pedal Edema - Back Exam Back Exam: NORMAL INSPECTION - Neurological Exam Neurological Exam: Alert, Awake, Oriented x3 - Psychiatric Exam Psychiatric exam: Normal Affect, Normal Mood - Skin Skin Exam: Dry, Intact, Normal Color, Warm Assessment and Plan - Assessment and Plan (Free Text) Assessment: 55 M with pmh of alcoholism, chronic pancreatitis, erosive esophagitis, gastritis, COPD and anemia admitted for hematemesis and alcohol intoxication. 1. Hematemesis - stable - Hx of erosive esophagitis - Tolerating full liquids - Hgb 11.5---> 10.3--> 9.9--> 10.7 will continue to monitor - GI consulted - rec Protonix 40mg PO BID, no endoscopic intervention at this time - Protonix changed to pepcid due to thrombocytopenia -now resolved 122 - IV Fluids - Zofran prn for nausea 2. ETOH abuse - withdrawals - Ativan 2mg--> 3mg q2h prn - Librum 50mg --> 50mg PO Q4H - Geodon 10mg q12 PRN - Alcohol level- 269 - CIWA protocol - aspiration and seizure precaution - neuro check q4h - Thiamine, multivitamin, folic acid after banana bag - Daily Mg & P 3. Chest pain - most likely 2/2 vomiting - Troponin negative x2 - EKG showed NSR - CXR - No active dx 4. Hyponatremia - resolved - Na 139 today - cont to monitor 5. Chronic pancreatitis - Lipase in 400s, around baseline - IV fluids - afebrile, no leukocytosis 6. Hypokalemia - K of 3.7 this am - cont to monitor 7. Hypomagnesemia - Mg of 1.8 this am - replete as needed 8. Anemia - Likely Iron def anemia - s/p 2 dose of Iron sucrose 9. Hx of COPD - Duonebs prn - NC 2L prn - maintain spO2>90 10. GI ppx: Pepcid DVT ppx: SCDs - PT eval and treat Case and plan was seen, reviewed, and discussed in detail with Dr Chung. <Jessica Chung - Last Filed: 07/18/16 17:09> Objective - Vital Signs/Intake and Output Vital Signs (last 24 hours): Temp Pulse Resp BP Pulse Ox 97.1 F L 95 H 19 117/80 97 07/18/16 12:00 07/18/16 12:00 07/18/16 12:00 07/18/16 12:00 07/18/16 05:26 Intake and Output: 07/18/16 07/18/16 06:59 18:59 Intake Total 550 Output Total 400 Balance 150 - Medications Medications: Current Medications Albuterol/Ipratropium (Duoneb 3 Mg/0.5 Mg (3 Ml) Ud) 3 ml IH [id number] PRN PRN Reason: Shortness of Breath Chlordiazepoxide (Librium) 50 mg PO Q4 [facility] Last Admin: 07/18/16 05:25 Dose: Not Given Famotidine (Pepcid) 40 mg PO BID [facility] Last Admin: 07/18/16 11:49 Dose: 40 mg Folic Acid (Folic Acid) 1 mg PO DAILY [facility] Last Admin: 07/18/16 11:48 Dose: 1 mg Lorazepam (Ativan) 3 mg IVP Q2H PRN PRN Reason: Symptoms of alcohol withdrawl Last Admin: 07/18/16 00:39 Dose: 3 mg Multivitamins (Thera Tab) 1 tab PO DAILY [facility] Last Admin: 07/18/16 11:49 Dose: 1 tab Ondansetron HCl (Zofran Inj) 4 mg IVP Q4H PRN PRN Reason: Nausea/Vomiting Last Admin: 07/18/16 00:39 Dose: 4 mg Thiamine HCl (Vitamin B1 Tab) 100 mg PO DAILY [facility] Last Admin: 07/18/16 11:49 Dose: 100 mg Ziprasidone (Geodon Inj) 10 mg IM Q12 PRN; Protocol PRN Reason: Agitation Last Admin: 07/18/16 03:16 Dose: 10 mg - Labs Labs: 07/18/16 05:00 07/18/16 05:00 PT 13.1 Seconds (9.9-11.8) H 07/17/16 06:30 INR 1.21 (0.93-1.08) H 07/17/16 06:30 Attending/Attestation - Attestation I have personally seen and examined this patient.: Yes I have fully participated in the care of the patient.: Yes I have reviewed all pertinent clinical information, including history, physical exam and plan: Yes Notes (Text): I have seen and examined the patient with the resident at the bedside. Agree with the above note with the following additions/ exceptions: This is a 55 year old male with history of alcohol abuse, tobacco use, copd, chronic pancreatitis, esophagitis, gastritis who got admitted for evaluation of hematemesis. Endoscopy during previous admission revealed esophagitis, gastritis and esophageal stenosis. Patient is very somnolent today. Apparently he was agitated last night and geodon was given. Advised the nurses to avoid geodon and give librium instead unless it is absolutely necessary. Continue [place] and wrist restraints. Patient was also noticed to have thrombocytopenia most likely due to alcohol induced bone marrow suppression. Counselling provided regarding alcohol use. Continue pepcid. Upon discharge the patient will follow-up with [facility] clinic and [facility] for repeat endoscopy. Dr Jessica Chung
--- NOTE | 2016-07-18 16:13 | RAD ---
HISTORY: cough COMPARISON: 07/14/2016 FINDINGS: LUNGS: No active pulmonary disease. PLEURA: No significant pleural effusion identified, no pneumothorax apparent. CARDIOVASCULAR: Normal. OSSEOUS STRUCTURES: No significant abnormalities. VISUALIZED UPPER ABDOMEN: Normal. OTHER FINDINGS: None. IMPRESSION: No active disease.
[2016-07-19 07:23] LABS: ADD MANUAL DIFF? NO
[2016-07-19 07:31] LABS: BASO # 0.02 K/mm3 (0.0-2.0); BASO % 0.3 % (0.0-3.0); EOS # 0.4 (0.0-0.7); EOS % 5.8 % (1.5-5.0); GRAN # 3.73 (1.4-6.5); HEMATOCRIT 34.1 % (42.0-52.0); LYMPH # 1.5 (1.2-3.4); MEAN CELL VOLUME 79.1 fL (80.0-105.0); MEAN CORPUSCULAR HEMOGLOBIN 24.8 pg (25.0-35.0); MEAN CORPUSCULAR HGB CONC 31.4 g/dl (31.0-37.0); MEAN PLATELET VOLUME 9.3 fl (7.0-11.0); MONO # 0.8 (0.1-0.6); MONO % 12.9 % (1.0-6.0); PLATELET COUNT 148 10^3/uL (120.0-450.0); WHITE BLOOD COUNT 6.4 10^3/ul (4.5-11.0)
[2016-07-19 07:58] LABS: ALB/GLOB RATIO 0.9 (1.1-1.8); ALKALINE PHOSPHATASE 100 U/L (38-133); ALT/SGPT 37 U/L (7-56); AST/SGOT 41 U/L (15-59); BILIRUBIN,TOTAL 0.8 mg/dL (0.2-1.3); BLOOD UREA NITROGEN 11 mg/dL (7-21); CALCIUM 9.1 mg/dL (8.4-10.5); CARBON DIOXIDE 28 mmol/L (21-33); CHLORIDE 98 mmol/L (98-107); GFR AFRICAN-AMERICAN > 60; GLUCOSE,RANDOM 91 mg/dL (70-110); MAGNESIUM 1.9 mg/dL (1.7-2.2); PHOSPHOROUS 4.6 mg/dL (2.5-4.5); POTASSIUM 4.4 mmol/L (3.6-5.0); SODIUM 138 mmol/L (132-148); TOTAL PROTEIN 7.4 g/dL (5.8-8.3)
[2016-07-19] MEDS ORDERED: Sodium Chloride 0.9% 1,000 ML IV STA (08:17)
[2016-07-19] MEDS: Multivitamin Therapeutic Tab PO SCH (09:25)
--- NOTE | 2016-07-19 12:48 | CP.PCM.PN ---
<Hi Mcfarlane - Last Filed: 07/19/16 12:43> Subjective - Date & Time of Evaluation Date of Evaluation: 07/19/16 Time of Evaluation: 07:30 - Subjective Subjective: Hospitalist Progress Note: Pt seen and examined at bedside. No acute events overnight. Pt states that he is doing well. Less agitated and anxious. No Complaints. He denies any headaches , dizziness, f/c, sob, cp, palpitations, abd pain, urinary or bm changes. Objective - Vital Signs/Intake and Output Vital Signs (last 24 hours): Temp Pulse Resp BP Pulse Ox 97.1 F L 86 20 121/60 96 07/19/16 11:43 07/19/16 11:43 07/19/16 11:43 07/19/16 11:43 07/19/16 06:00 Intake and Output: 07/19/16 07/19/16 06:59 18:59 Intake Total 120 Output Total 300 Balance -180 - Medications Medications: Current Medications Albuterol/Ipratropium (Duoneb 3 Mg/0.5 Mg (3 Ml) Ud) 3 ml IH [id number] PRN PRN Reason: Shortness of Breath Chlordiazepoxide (Librium) 50 mg PO Q8 [facility] Famotidine (Pepcid) 40 mg PO BID [facility] Last Admin: 07/19/16 09:25 Dose: 40 mg Folic Acid (Folic Acid) 1 mg PO DAILY [facility] Last Admin: 07/19/16 09:24 Dose: 1 mg Lorazepam (Ativan) 3 mg IVP Q2H PRN PRN Reason: Symptoms of alcohol withdrawl Last Admin: 07/18/16 00:39 Dose: 3 mg Multivitamins (Thera Tab) 1 tab PO DAILY [facility] Last Admin: 07/19/16 09:25 Dose: 1 tab Ondansetron HCl (Zofran Inj) 4 mg IVP Q4H PRN PRN Reason: Nausea/Vomiting Last Admin: 07/18/16 00:39 Dose: 4 mg Thiamine HCl (Vitamin B1 Tab) 100 mg PO DAILY [facility] Last Admin: 07/19/16 09:25 Dose: 100 mg Ziprasidone (Geodon Inj) 10 mg IM Q12 PRN; Protocol PRN Reason: Agitation Last Admin: 07/18/16 03:16 Dose: 10 mg - Labs Labs: 07/19/16 06:30 07/19/16 06:30 PT 13.1 Seconds (9.9-11.8) H 07/17/16 06:30 INR 1.21 (0.93-1.08) H 07/17/16 06:30 - Constitutional Appears: No Acute Distress - Head Exam Head Exam: ATRAUMATIC, NORMAL INSPECTION, NORMOCEPHALIC - Eye Exam Eye Exam: EOMI, Normal appearance, PERRL Pupil Exam: NORMAL ACCOMODATION, PERRL - ENT Exam ENT Exam: Mucous Membranes Moist, Normal Exam - Neck Exam Neck Exam: Full ROM, Normal Inspection. absent: Lymphadenopathy - Respiratory Exam Respiratory Exam: Clear to Ausculation Bilateral, NORMAL BREATHING PATTERN. absent: Rales, Rhonchi, Wheezes - Cardiovascular Exam Cardiovascular Exam: REGULAR RHYTHM, RRR, +S1, +S2. absent: Murmur - GI/Abdominal Exam GI & Abdominal Exam: Soft. absent: Distended, Tenderness - Extremities Exam Extremities Exam: Full ROM, Normal Capillary Refill, Normal Inspection. absent : Joint Swelling, Pedal Edema - Back Exam Back Exam: NORMAL INSPECTION - Neurological Exam Neurological Exam: Alert, Awake, Oriented x3 - Psychiatric Exam Psychiatric exam: Normal Affect, Normal Mood. absent: Agitated, Anxious - Skin Skin Exam: Dry, Intact, Normal Color, Warm Assessment and Plan - Assessment and Plan (Free Text) Assessment: 55 M with pmh of alcoholism, chronic pancreatitis, erosive esophagitis, gastritis, COPD and anemia admitted for hematemesis and alcohol intoxication. 1. Hematemesis - stable - Hx of erosive esophagitis - Tolerating full liquids - advanced to Puree diet this am - GI consulted- no endoscopic intervention at this time - Protonix changed to pepcid due to thrombocytopenia -now resolved 148 - IV Fluids - Zofran prn for nausea 2. ETOH abuse - withdrawals - Doing better - minimal tremors - Ativan 2mg--> 3mg q2h prn - Librum 50mg PO Q4H --> Q8H - Geodon 10mg q12 PRN - CIWA protocol - aspiration and seizure precaution - Thiamine, multivitamin, folic acid after banana bag - Daily Mg & P 3. Chest pain - most likely 2/2 vomiting - Troponin negative x2 - EKG showed NSR - CXR - No active dx 4. Hyponatremia - resolved - cont to monitor 5. Chronic pancreatitis - Lipase in 400s, around baseline - IV fluids - afebrile, no leukocytosis 6. Hypokalemia - resolved - cont to monitor 7. Hypomagnesemia - resolved - replete as needed 8. Anemia - Likely Iron def anemia - s/p 2 dose of Iron sucrose 9. Hx of COPD - Duonebs prn - NC 2L prn - maintain spO2>90 - CXR - no active dx 10. GI ppx: Pepcid - DVT ppx: SCDs PT eval and treat Case and plan was seen, reviewed, and discussed in detail with Dr Chung. <Jessica Chung - Last Filed: 07/20/16 11:06> Objective - Vital Signs/Intake and Output Vital Signs (last 24 hours): Temp Pulse Resp BP Pulse Ox 97.6 F 68 20 108/68 96 07/20/16 05:48 07/20/16 07:30 07/20/16 05:48 07/20/16 05:48 07/20/16 05:48 Intake and Output: 07/20/16 07/20/16 06:59 18:59 Intake Total 720 Output Total 1700 Balance -980 - Medications Medications: Current Medications Albuterol/Ipratropium (Duoneb 3 Mg/0.5 Mg (3 Ml) Ud) 3 ml IH [id number] PRN PRN Reason: Shortness of Breath Chlordiazepoxide (Librium) 25 mg PO Q8 [facility] Famotidine (Pepcid) 40 mg PO BID [facility] Last Admin: 07/20/16 09:40 Dose: 40 mg Folic Acid (Folic Acid) 1 mg PO DAILY [facility] Last Admin: 07/20/16 09:40 Dose: 1 mg Lorazepam (Ativan) 3 mg IVP Q2H PRN PRN Reason: Symptoms of alcohol withdrawl Last Admin: 07/20/16 09:39 Dose: 3 mg Multivitamins (Thera Tab) 1 tab PO DAILY [facility] Last Admin: 07/20/16 09:40 Dose: 1 tab Ondansetron HCl (Zofran Inj) 4 mg IVP Q4H PRN PRN Reason: Nausea/Vomiting Last Admin: 07/20/16 09:45 Dose: 4 mg Thiamine HCl (Vitamin B1 Tab) 100 mg PO DAILY [facility] Last Admin: 07/20/16 09:40 Dose: 100 mg Ziprasidone (Geodon Inj) 10 mg IM Q12 PRN; Protocol PRN Reason: Agitation Last Admin: 07/18/16 03:16 Dose: 10 mg - Labs Labs: 07/20/16 07:10 07/20/16 07:10 PT 13.1 Seconds (9.9-11.8) H 07/17/16 06:30 INR 1.21 (0.93-1.08) H 07/17/16 06:30 Attending/Attestation - Attestation I have personally seen and examined this patient.: Yes I have fully participated in the care of the patient.: Yes I have reviewed all pertinent clinical information, including history, physical exam and plan: Yes Notes (Text): I have seen and examined the patient with the resident at the bedside. Agree with the above note with the following additions/ exceptions: This is a 55 year old male with history of alcohol abuse, tobacco use, copd, chronic pancreatitis, esophagitis, gastritis who got admitted for evaluation of hematemesis. Endoscopy during previous admission revealed esophagitis, gastritis and esophageal stenosis. Patient appears less agitated today however nurse complains that he sometimes tried to get out of the bed. He has been tolerating liquids. No episode of hematemesis notes. Will decrease frequency of librium. Advised the nurses to avoid geodon and give librium instead unless it is absolutely necessary. Continue [place] and wrist restraints. Patient was also noticed to have thrombocytopenia most likely due to alcohol induced bone marrow suppression. Counselling provided regarding alcohol use. Continue pepcid. Upon discharge the patient will follow-up with [facility] clinic and [facility] for repeat endoscopy. Dr Jessica Chung
[2016-07-20 07:46] LABS: ADD MANUAL DIFF? NO
[2016-07-20 07:52] LABS: BASO # 0.01 K/mm3 (0.0-2.0); BASO % 0.2 % (0.0-3.0); EOS # 0.4 (0.0-0.7); GRAN # 3.28 (1.4-6.5); GRAN % 53.7 % (50.0-68.0); HEMATOCRIT 33.7 % (42.0-52.0); LYMPH # 1.6 (1.2-3.4); LYMPH % 26.8 % (22.0-35.0); MEAN CELL VOLUME 78.9 fL (80.0-105.0); MEAN CORPUSCULAR HEMOGLOBIN 24.4 pg (25.0-35.0); MEAN CORPUSCULAR HGB CONC 30.9 g/dl (31.0-37.0); MONO # 0.8 (0.1-0.6); MONO % 12.3 % (1.0-6.0); PLATELET COUNT 160 10^3/uL (120.0-450.0); RED CELL DISTRIBUTION WIDTH 19.7 % (11.5-14.5); WHITE BLOOD COUNT 6.1 10^3/ul (4.5-11.0)
[2016-07-20 08:06] LABS: ALB/GLOB RATIO 0.9 (1.1-1.8); ALKALINE PHOSPHATASE 94 U/L (38-133); ALT/SGPT 36 U/L (7-56); AST/SGOT 36 U/L (15-59); BILIRUBIN,TOTAL 0.6 mg/dL (0.2-1.3); BLOOD UREA NITROGEN 8 mg/dL (7-21); CALCIUM 8.9 mg/dL (8.4-10.5); CARBON DIOXIDE 29 mmol/L (21-33); CHLORIDE 99 mmol/L (95-110); GFR AFRICAN-AMERICAN > 60; GLUCOSE,RANDOM 92 mg/dL (70-110); POTASSIUM 3.8 mmol/L (3.6-5.0); SODIUM 138 mmol/L (132-148); TOTAL PROTEIN 6.9 g/dL (5.8-8.3)
[2016-07-20] MEDS: Multivitamin Therapeutic Tab PO SCH (09:40)
--- NOTE | 2016-07-20 10:39 | CP.PCM.PN ---
<Hi Mcfarlane - Last Filed: 07/20/16 10:34> Subjective - Date & Time of Evaluation Date of Evaluation: 07/20/16 Time of Evaluation: 07:00 - Subjective Subjective: Hospitalist Progress Note: Pt seen and examined at bedside. No acute events overnight. Pt lying down comfortably states that he is doing well. Denies [place] agitation and anxious. He denies any headaches, dizziness, f/c, sob, cp, palpitations, abd pain, urinary or bm changes. Objective - Vital Signs/Intake and Output Vital Signs (last 24 hours): Temp Pulse Resp BP Pulse Ox 97.6 F 68 20 108/68 96 07/20/16 05:48 07/20/16 07:30 07/20/16 05:48 07/20/16 05:48 07/20/16 05:48 Intake and Output: 07/20/16 07/20/16 06:59 18:59 Intake Total 720 Output Total 1700 Balance -980 - Medications Medications: Current Medications Albuterol/Ipratropium (Duoneb 3 Mg/0.5 Mg (3 Ml) Ud) 3 ml IH [id number] PRN PRN Reason: Shortness of Breath Chlordiazepoxide (Librium) 25 mg PO Q8 [facility] Famotidine (Pepcid) 40 mg PO BID [facility] Last Admin: 07/20/16 09:40 Dose: 40 mg Folic Acid (Folic Acid) 1 mg PO DAILY [facility] Last Admin: 07/20/16 09:40 Dose: 1 mg Lorazepam (Ativan) 3 mg IVP Q2H PRN PRN Reason: Symptoms of alcohol withdrawl Last Admin: 07/20/16 09:39 Dose: 3 mg Multivitamins (Thera Tab) 1 tab PO DAILY [facility] Last Admin: 07/20/16 09:40 Dose: 1 tab Ondansetron HCl (Zofran Inj) 4 mg IVP Q4H PRN PRN Reason: Nausea/Vomiting Last Admin: 07/20/16 09:45 Dose: 4 mg Thiamine HCl (Vitamin B1 Tab) 100 mg PO DAILY [facility] Last Admin: 07/20/16 09:40 Dose: 100 mg Ziprasidone (Geodon Inj) 10 mg IM Q12 PRN; Protocol PRN Reason: Agitation Last Admin: 07/18/16 03:16 Dose: 10 mg - Labs Labs: 07/20/16 07:10 07/20/16 07:10 PT 13.1 Seconds (9.9-11.8) H 07/17/16 06:30 INR 1.21 (0.93-1.08) H 07/17/16 06:30 - Constitutional Appears: No Acute Distress - Head Exam Head Exam: ATRAUMATIC, NORMAL INSPECTION, NORMOCEPHALIC - Eye Exam Eye Exam: EOMI, Normal appearance, PERRL Pupil Exam: NORMAL ACCOMODATION, PERRL - ENT Exam ENT Exam: Mucous Membranes Moist, Normal Exam - Neck Exam Neck Exam: Full ROM, Normal Inspection. absent: Lymphadenopathy - Respiratory Exam Respiratory Exam: Clear to Ausculation Bilateral, NORMAL BREATHING PATTERN. absent: Wheezes - Cardiovascular Exam Cardiovascular Exam: REGULAR RHYTHM, RRR, +S1, +S2. absent: Murmur - GI/Abdominal Exam GI & Abdominal Exam: Soft. absent: Distended, Tenderness - Extremities Exam Extremities Exam: Full ROM, Normal Capillary Refill, Normal Inspection. absent : Joint Swelling, Pedal Edema - Back Exam Back Exam: NORMAL INSPECTION - Neurological Exam Neurological Exam: Alert, Awake, Oriented x3 - Psychiatric Exam Psychiatric exam: Normal Affect, Normal Mood - Skin Skin Exam: Dry, Intact, Normal Color, Warm Assessment and Plan - Assessment and Plan (Free Text) Assessment: 55 M with pmh of alcoholism, chronic pancreatitis, erosive esophagitis, gastritis, COPD and anemia admitted for hematemesis and alcohol intoxication and currently with etoh withdrawals. 1. Hematemesis - stable - Hx of erosive esophagitis - Tolerating Puree diet due to hx of esophageal stricture - GI consulted- no endoscopic intervention at this time - Protonix changed to pepcid due to thrombocytopenia -now resolved 148 - Zofran prn 2. ETOH withdrawals - Ativan 3mg q2h prn - Librum 25mg Q8H - Geodon 10mg q12 PRN - CIWA protocol - aspiration and seizure precaution - Thiamine, multivitamin, folic acid - Daily Mg & P 3. Chest pain - most likely 2/2 vomiting - Troponin negative x2 - EKG showed NSR - CXR - No active dx 4. Hyponatremia - resolved - cont to monitor 5. Chronic pancreatitis - Lipase in 400s, around baseline - IV fluids - afebrile, no leukocytosis 6. Hypokalemia - resolved - cont to monitor 7. Hypomagnesemia - resolved - replete as needed 8. Anemia - Likely Iron def anemia - s/p 2 dose of Iron sucrose 9. Hx of COPD - Duonebs prn - NC 2L prn - maintain spO2>90 - CXR - no active dx 10. GI ppx: Pepcid - DVT ppx: SCDs PT eval and treat Case and plan was seen, reviewed, and discussed in detail with Dr Chung. <Jessica Chung - Last Filed: 07/20/16 11:09> Objective - Vital Signs/Intake and Output Vital Signs (last 24 hours): Temp Pulse Resp BP Pulse Ox 97.6 F 68 20 108/68 96 07/20/16 05:48 07/20/16 07:30 07/20/16 05:48 07/20/16 05:48 07/20/16 05:48 Intake and Output: 07/20/16 07/20/16 06:59 18:59 Intake Total 720 Output Total 1700 Balance -980 - Medications Medications: Current Medications Albuterol/Ipratropium (Duoneb 3 Mg/0.5 Mg (3 Ml) Ud) 3 ml IH [id number] PRN PRN Reason: Shortness of Breath Chlordiazepoxide (Librium) 25 mg PO Q8 [facility] Famotidine (Pepcid) 40 mg PO BID [facility] Last Admin: 07/20/16 09:40 Dose: 40 mg Folic Acid (Folic Acid) 1 mg PO DAILY [facility] Last Admin: 07/20/16 09:40 Dose: 1 mg Lorazepam (Ativan) 3 mg IVP Q2H PRN PRN Reason: Symptoms of alcohol withdrawl Last Admin: 07/20/16 09:39 Dose: 3 mg Multivitamins (Thera Tab) 1 tab PO DAILY [facility] Last Admin: 07/20/16 09:40 Dose: 1 tab Ondansetron HCl (Zofran Inj) 4 mg IVP Q4H PRN PRN Reason: Nausea/Vomiting Last Admin: 07/20/16 09:45 Dose: 4 mg Thiamine HCl (Vitamin B1 Tab) 100 mg PO DAILY [facility] Last Admin: 07/20/16 09:40 Dose: 100 mg Ziprasidone (Geodon Inj) 10 mg IM Q12 PRN; Protocol PRN Reason: Agitation Last Admin: 07/18/16 03:16 Dose: 10 mg - Labs Labs: 07/20/16 07:10 07/20/16 07:10 PT 13.1 Seconds (9.9-11.8) H 07/17/16 06:30 INR 1.21 (0.93-1.08) H 07/17/16 06:30 Attending/Attestation - Attestation I have personally seen and examined this patient.: Yes I have fully participated in the care of the patient.: Yes I have reviewed all pertinent clinical information, including history, physical exam and plan: Yes Notes (Text): I have seen and examined the patient with the resident at the bedside. Agree with the above note with the following additions/ exceptions: This is a 55 year old male with history of alcohol abuse, tobacco use, copd, chronic pancreatitis, esophagitis, gastritis who got admitted for evaluation of hematemesis. Endoscopy during previous admission revealed esophagitis, gastritis and esophageal stenosis. Patient appears calm today. Denies headache, agitation, diaphoresis and has mild tremors. He is still very unsteady. Will decrease librium to 25 q8. Will advance his diet to puree. No episode of hematemesis noted. Advised the nurses to avoid geodon and give librium instead unless it is absolutely necessary. Continue [place] and wrist restraints. Patient was also noticed to have thrombocytopenia most likely due to alcohol induced bone marrow suppression. Counselling provided regarding alcohol use. Continue pepcid. Upon discharge the patient will follow-up with [facility] clinic and [facility] clinic for repeat endoscopy. Dr Jessica Chung
[2016-07-21 07:43] LABS: ADD MANUAL DIFF? NO
[2016-07-21 07:47] LABS: BASO # 0.03 K/mm3 (0.0-2.0); BASO % 0.5 % (0.0-3.0); EOS # 0.4 (0.0-0.7); EOS % 7.4 % (1.5-5.0); GRAN # 3.06 (1.4-6.5); GRAN % 51.8 % (50.0-68.0); HEMATOCRIT 33.2 % (42.0-52.0); LYMPH # 1.6 (1.2-3.4); LYMPH % 27.5 % (22.0-35.0); MEAN CELL VOLUME 78.9 fL (80.0-105.0); MEAN CORPUSCULAR HEMOGLOBIN 24.9 pg (25.0-35.0); MEAN CORPUSCULAR HGB CONC 31.6 g/dl (31.0-37.0); MONO # 0.8 (0.1-0.6); MONO % 12.8 % (1.0-6.0); PLATELET COUNT 188 10^3/uL (120.0-450.0); RED CELL DISTRIBUTION WIDTH 19.6 % (11.5-14.5); WHITE BLOOD COUNT 5.9 10^3/ul (4.5-11.0)
[2016-07-21 08:03] LABS: ALB/GLOB RATIO 0.9 (1.1-1.8); ALKALINE PHOSPHATASE 81 U/L (38-133); ALT/SGPT 40 U/L (7-56); AST/SGOT 36 U/L (15-59); BILIRUBIN,TOTAL 0.4 mg/dL (0.2-1.3); BLOOD UREA NITROGEN 11 mg/dL (7-21); CALCIUM 8.9 mg/dL (8.4-10.5); CARBON DIOXIDE 32 mmol/L (21-33); CHLORIDE 100 mmol/L (95-110); GFR AFRICAN-AMERICAN > 60; GLUCOSE,RANDOM 85 mg/dL (70-110); POTASSIUM 4.2 mmol/L (3.6-5.0); SODIUM 138 mmol/L (132-148); TOTAL PROTEIN 6.9 g/dL (5.8-8.3)
[2016-07-21] MEDS: Multivitamin Therapeutic Tab PO SCH (09:21)
--- NOTE | 2016-07-21 11:15 | CP.PCM.PN ---
<Hi Mcfarlane - Last Filed: 07/21/16 11:09> Subjective - Date & Time of Evaluation Date of Evaluation: 07/21/16 Time of Evaluation: 07:10 - Subjective Subjective: Hospitalist Progress Note: Pt seen and examined at bedside. No acute events overnight. He denies any agitation and anxiety but does c/o of some depression. He denies any headaches, dizziness, f/c, sob, cp, palpitations, abd pain, urinary or bm changes. Objective - Vital Signs/Intake and Output Vital Signs (last 24 hours): Temp Pulse Resp BP Pulse Ox 97.8 F 77 20 99/55 L 97 07/21/16 05:29 07/21/16 08:28 07/21/16 05:29 07/21/16 05:29 07/21/16 05:29 - Medications Medications: Current Medications Albuterol/Ipratropium (Duoneb 3 Mg/0.5 Mg (3 Ml) Ud) 3 ml IH [id number] PRN PRN Reason: Shortness of Breath Chlordiazepoxide (Librium) 25 mg PO Q8 [facility] Last Admin: 07/21/16 06:07 Dose: 25 mg Famotidine (Pepcid) 40 mg PO BID [facility] Last Admin: 07/21/16 09:21 Dose: 40 mg Folic Acid (Folic Acid) 1 mg PO DAILY [facility] Last Admin: 07/21/16 09:20 Dose: 1 mg Lorazepam (Ativan) 1 mg IVP Q2H PRN PRN Reason: Symptoms of alcohol withdrawl Multivitamins (Thera Tab) 1 tab PO DAILY [facility] Last Admin: 07/21/16 09:21 Dose: 1 tab Ondansetron HCl (Zofran Inj) 4 mg IVP Q4H PRN PRN Reason: Nausea/Vomiting Last Admin: 07/20/16 09:45 Dose: 4 mg Thiamine HCl (Vitamin B1 Tab) 100 mg PO DAILY [facility] Last Admin: 07/21/16 09:21 Dose: 100 mg Ziprasidone (Geodon Inj) 10 mg IM Q12 PRN; Protocol PRN Reason: Agitation Last Admin: 07/18/16 03:16 Dose: 10 mg - Labs Labs: 07/21/16 07:40 PT 13.1 Seconds (9.9-11.8) H 07/17/16 06:30 INR 1.21 (0.93-1.08) H 07/17/16 06:30 - Constitutional Appears: No Acute Distress - Head Exam Head Exam: ATRAUMATIC, NORMAL INSPECTION, NORMOCEPHALIC - Eye Exam Eye Exam: EOMI, Normal appearance, PERRL - ENT Exam ENT Exam: Mucous Membranes Moist, Normal Exam - Respiratory Exam Respiratory Exam: Clear to Ausculation Bilateral, NORMAL BREATHING PATTERN. absent: Wheezes - Cardiovascular Exam Cardiovascular Exam: REGULAR RHYTHM, RRR, +S1, +S2. absent: Murmur - GI/Abdominal Exam GI & Abdominal Exam: Soft. absent: Distended, Tenderness - Extremities Exam Extremities Exam: absent: Calf Tenderness - Back Exam Back Exam: NORMAL INSPECTION - Neurological Exam Neurological Exam: Alert, Awake, Oriented x3 - Psychiatric Exam Psychiatric exam: Depressed, Normal Affect, Normal Mood. absent: Agitated, Anxious - Skin Skin Exam: Dry, Intact, Normal Color, Warm Assessment and Plan - Assessment and Plan (Free Text) Assessment: 55 M with pmh of alcoholism, chronic pancreatitis, erosive esophagitis, gastritis, COPD and anemia admitted for hematemesis and alcohol intoxication and currently with etoh withdrawals. 1. Hematemesis - stable - Hx of erosive esophagitis - Tolerating Puree diet due to hx of esophageal stricture but insists on regular diet since he states that he has a regular diet at home and is able to swallow with out a problem. Pt insists on changing diet understanding consequence of regular diet such as aspiration pneumonia. Will attempt soft regular diet. - GI consulted- no endoscopic intervention at this time - Protonix changed to pepcid due to thrombocytopenia -now resolved 188 - Zofran prn 2. ETOH withdrawals - Ativan 3mg q2h prn dec to 1mg q2H PRN - Cont Librum 25mg Q8H - Geodon 10mg q12 PRN - CIWA protocol - aspiration and seizure precaution - Thiamine, multivitamin, folic acid - Daily Mg & P 3. Depression - Request to speak to a psychiatrist - Psychiatry - Dr Clayton consulted for recs 4. Chest pain - most likely 2/2 vomiting - Troponin negative x2 - EKG showed NSR - CXR - No active dx 5. Hyponatremia - resolved - cont to monitor 6. Chronic pancreatitis - Lipase in 400s, around baseline - IV fluids - afebrile, no leukocytosis 7. Hypokalemia - resolved - cont to monitor 8. Hypomagnesemia - resolved - replete as needed 9. Anemia - Likely Iron def anemia - s/p 2 dose of Iron sucrose 10. Hx of COPD - Duonebs prn - NC 2L prn - maintain spO2>90 - CXR - no active dx 11. GI ppx: Pepcid - DVT ppx: SCDs PT eval and treat Case and plan was seen, reviewed, and discussed in detail with Dr Goel. <Alaina Goel - Last Filed: 07/21/16 13:45> Objective - Vital Signs/Intake and Output Vital Signs (last 24 hours): Temp Pulse Resp BP Pulse Ox 97.6 F 73 18 106/76 95 07/21/16 11:59 07/21/16 11:59 07/21/16 11:59 07/21/16 11:59 07/21/16 11:59 - Medications Medications: Current Medications Albuterol/Ipratropium (Duoneb 3 Mg/0.5 Mg (3 Ml) Ud) 3 ml IH [id number] PRN PRN Reason: Shortness of Breath Chlordiazepoxide (Librium) 25 mg PO Q8 [facility] Last Admin: 07/21/16 13:21 Dose: 25 mg Famotidine (Pepcid) 40 mg PO BID [facility] Last Admin: 07/21/16 09:21 Dose: 40 mg Folic Acid (Folic Acid) 1 mg PO DAILY [facility] Last Admin: 07/21/16 09:20 Dose: 1 mg Lorazepam (Ativan) 1 mg IVP Q2H PRN PRN Reason: Symptoms of alcohol withdrawl Last Admin: 07/21/16 11:46 Dose: 1 mg Multivitamins (Thera Tab) 1 tab PO DAILY [facility] Last Admin: 07/21/16 09:21 Dose: 1 tab Ondansetron HCl (Zofran Inj) 4 mg IVP Q4H PRN PRN Reason: Nausea/Vomiting Last Admin: 07/21/16 11:46 Dose: 4 mg Thiamine HCl (Vitamin B1 Tab) 100 mg PO DAILY [facility] Last Admin: 07/21/16 09:21 Dose: 100 mg Ziprasidone (Geodon Inj) 10 mg IM Q12 PRN; Protocol PRN Reason: Agitation Last Admin: 07/18/16 03:16 Dose: 10 mg - Labs Labs: 07/21/16 07:40 07/21/16 07:40 PT 13.1 Seconds (9.9-11.8) H 07/17/16 06:30 INR 1.21 (0.93-1.08) H 07/17/16 06:30 Attending/Attestation - Attestation I have personally seen and examined this patient.: Yes I have fully participated in the care of the patient.: Yes I have reviewed all pertinent clinical information, including history, physical exam and plan: Yes Notes (Text): 07/21/16 13:44 attending note; I have seen and examined the patient with the resident at the bedside. This is a 55 year old male with history of alcohol abuse, tobacco use, copd, chronic pancreatitis, esophagitis, gastritis who got admitted for evaluation of hematemesis. Endoscopy during previous admission revealed esophagitis, gastritis and esophageal stenosis. Currently treated for alcohol withdrawal symptoms. Improved significantly. LFTs improving. Thrombocytopenia is resolving. Tolerating pured diet. Advance to soft diet today. Complete alcohol cessation is strongly advised. Continue pepcid. patient is requesting psych consult for depression. Denies any suicidal ideation. Upon discharge the patient will follow-up with [facility] and [facility] for repeat endoscopy.
[2016-07-22 07:04] LABS: ADD MANUAL DIFF? NO
[2016-07-22 07:08] LABS: BASO # 0.03 K/mm3 (0.0-2.0); BASO % 0.5 % (0.0-3.0); EOS # 0.4 (0.0-0.7); EOS % 6.8 % (1.5-5.0); GRAN # 3.45 (1.4-6.5); GRAN % 54.2 % (50.0-68.0); HEMATOCRIT 33.1 % (42.0-52.0); LYMPH # 1.8 (1.2-3.4); MEAN CELL VOLUME 79.2 fL (80.0-105.0); MEAN CORPUSCULAR HEMOGLOBIN 24.9 pg (25.0-35.0); MEAN CORPUSCULAR HGB CONC 31.4 g/dl (31.0-37.0); MEAN PLATELET VOLUME 8.7 fl (7.0-11.0); MONO # 0.7 (0.1-0.6); MONO % 10.5 % (1.0-6.0); PLATELET COUNT 193 10^3/uL (120.0-450.0); RED CELL DISTRIBUTION WIDTH 19.6 % (11.5-14.5); WHITE BLOOD COUNT 6.4 10^3/ul (4.5-11.0)
[2016-07-22 07:24] LABS: ALKALINE PHOSPHATASE 78 U/L (38-133); ALT/SGPT 39 U/L (7-56); AST/SGOT 39 U/L (15-59); BILIRUBIN,TOTAL 0.7 mg/dL (0.2-1.3); BLOOD UREA NITROGEN 15 mg/dL (7-21); CALCIUM 8.8 mg/dL (8.4-10.5); CARBON DIOXIDE 29 mmol/L (21-33); CHLORIDE 97 mmol/L (98-107); GFR AFRICAN-AMERICAN > 60; GLUCOSE,RANDOM 110 mg/dL (70-110); POTASSIUM 3.9 mmol/L (3.6-5.0); SODIUM 136 mmol/L (132-148); TOTAL PROTEIN 7.6 g/dL (5.8-8.3)
[2016-07-22] MEDS: Multivitamin Therapeutic Tab PO SCH (09:34)
[2016-07-22 11:26] VITALS: BP 87/45; PULSE 65; RESP 17; TEMP 97.9; O2SAT 99
--- NOTE | 2016-07-22 11:54 | CP.PCM.DIS ---
<Hi Mcfarlane - Last Filed: 07/22/16 15:32> Provider - Provider Date of Admission: 07/14/16 18:22 Attending physician: Alaina Goel MD Primary care physician: Tommie Alexander MD Consults: Psychiatry Time Spent in preparation of Discharge (in minutes): 45 Hospital Course - Lab Results Lab Results: Micro Results 07/16/16 06:30 Blood Blood Culture - Final NO GROWTH AFTER 5 DAYS 07/16/16 06:30 Blood Gram Stain - Final TEST NOT PERFORMED 07/16/16 06:30 Blood Blood Culture - Final NO GROWTH AFTER 5 DAYS 07/16/16 06:30 Blood Gram Stain - Final TEST NOT PERFORMED 07/16/16 19:00 Stool C. difficile Antigen & Toxin A,B (M - Final 07/14/16 20:00 Urine Urine Culture - Final No Growth (<1,000 CFU/ML) Most Recent Lab Values WBC 6.4 10^3/ul (4.5-11.0) 07/22/16 06:40 RBC 4.18 10^6/uL (3.5-6.1) 07/22/16 06:40 Hgb 10.4 gm/dL (14.0-18.0) L 07/22/16 06:40 Hct 33.1 % (42.0-52.0) L 07/22/16 06:40 MCV 79.2 fL (80.0-105.0) L 07/22/16 06:40 MCH 24.9 pg (25.0-35.0) L 07/22/16 06:40 MCHC 31.4 g/dl (31.0-37.0) 07/22/16 06:40 RDW 19.6 % (11.5-14.5) H 07/22/16 06:40 Plt Count 193 10^3/uL (120.0-450.0) 07/22/16 06:40 MPV 8.7 fl (7.0-11.0) 07/22/16 06:40 Gran % 54.2 % (50.0-68.0) 07/22/16 06:40 Lymph % (Auto) 28.0 % (22.0-35.0) 07/22/16 06:40 Eaton % (Auto) 10.5 % (1.0-6.0) H 07/22/16 06:40 Eos % (Auto) 6.8 % (1.5-5.0) H 07/22/16 06:40 Baso % (Auto) 0.5 % (0.0-3.0) 07/22/16 06:40 Gran # 3.45 (1.4-6.5) 07/22/16 06:40 Lymph # 1.8 (1.2-3.4) 07/22/16 06:40 Eaton # 0.7 (0.1-0.6) H 07/22/16 06:40 Eos # 0.4 (0.0-0.7) 07/22/16 06:40 Baso # 0.03 K/mm3 (0.0-2.0) 07/22/16 06:40 PT 13.1 Seconds (9.9-11.8) H 07/17/16 06:30 INR 1.21 (0.93-1.08) H 07/17/16 06:30 Sodium 136 mmol/L (132-148) 07/22/16 06:40 Potassium 3.9 mmol/L (3.6-5.0) 07/22/16 06:40 Chloride 97 mmol/L (98-107) L 07/22/16 06:40 Carbon Dioxide 29 mmol/L (21-33) 07/22/16 06:40 Anion Gap 14 (10-20) 07/22/16 06:40 BUN 15 mg/dL (7-21) 07/22/16 06:40 Creatinine 1.0 mg/dL (0.5-1.4) 07/22/16 06:40 Est GFR ( Amer) > 60 07/22/16 06:40 Est GFR (Non-Af Amer) > 60 07/22/16 06:40 Random Glucose 110 mg/dL (70-110) 07/22/16 06:40 Calcium 8.8 mg/dL (8.4-10.5) 07/22/16 06:40 Phosphorus 4.6 mg/dL (2.5-4.5) H 07/19/16 06:30 Magnesium 1.9 mg/dL (1.7-2.2) 07/19/16 06:30 Total Bilirubin 0.7 mg/dL (0.2-1.3) 07/22/16 06:40 AST 39 U/L (15-59) 07/22/16 06:40 ALT 39 U/L (7-56) 07/22/16 06:40 Alkaline Phosphatase 78 U/L (38-133) 07/22/16 06:40 Lactate Dehydrogenase 577 U/L (333-699) 07/14/16 17:00 Total Creatine Kinase 210 U/L (35-230) 07/14/16 17:00 Troponin I 0.02 ng/mL D 07/15/16 06:50 Total Protein 7.6 g/dL (5.8-8.3) 07/22/16 06:40 Albumin 3.8 g/dL (3.0-4.8) 07/22/16 06:40 Globulin 3.8 gm/dL 07/22/16 06:40 Albumin/Globulin Ratio 1.0 (1.1-1.8) L 07/22/16 06:40 Lipase 485 U/L (23-300) H 07/14/16 17:00 Procalcitonin 0.41 NG/ML (0.19-0.49) 07/16/16 06:30 Urine Color Yellow (YELLOW) 07/14/16 20:00 Urine Appearance Clear (CLEAR) 07/14/16 20:00 Urine pH 6.0 (4.7-8.0) 07/14/16 20:00 Ur Specific [place] 1.015 (1.005-1.035) 07/14/16 20:00 Urine Protein Trace mg/dL (<30 mg/dL) H 07/14/16 20:00 Urine Glucose (UA) Negative mg/dL (NEGATIVE) 07/14/16 20:00 Urine Ketones Negative mg/dL (NEGATIVE) 07/14/16 20:00 Urine Blood Negative (NEGATIVE) 07/14/16 20:00 Urine Nitrate Negative (NEGATIVE) 07/14/16 20:00 Urine Bilirubin Negative (NEGATIVE) 07/14/16 20:00 Urine Urobilinogen 0.2 E.U./dL (<1 E.U./dL) 07/14/16 20:00 Ur Leukocyte Esterase Negative Vanda/uL (NEGATIVE) 07/14/16 20:00 Urine RBC 0 - 2 /hpf (0-2) 07/14/16 20:00 Urine WBC 0 - 2 /hpf (0-6) 07/14/16 20:00 Ur Epithelial Cells 0 - 2 /hpf (0-5) 07/14/16 20:00 Alcohol, Quantitative 269 mg/dL (0-10) H 07/14/16 17:00 Hepatitis A IgM Ab Negative (NEGATIVE) 07/15/16 08:30 Hep Bs Antigen Negative (NEGATIVE) 07/15/16 08:30 Hep B Core IgM Ab Negative (NEGATIVE) 07/15/16 08:30 Hepatitis C Antibody Negative (NEGATIVE) 07/15/16 08:30 - Hospital Course Hospital Course: 55 M with pmh of alcoholism, chronic pancreatitis, erosive esophagitis, gastritis, COPD and anemia presented hematemesis and alcohol intoxication. In the ED the basic lab work was done. Pt H/H was 10.9/33.5 on admission. No other episodes of hematemesis. Pt remained hemodynamically stable. Pt had Alcohol level of 269 on admission. He was admitted for hematemesis, alcohol intoxication and withdrawals. CIWA protocol, aspiration protocol, seizure protocol and fall precautions were initiated. Pt was initially stable he than under went DTs requiring Ativan 3mg Q2H, Librium 50mg Q4H. The Ativan and Librium were tapered in the next few days. He also c/o depression and anxiety requesting psychiatry recs. Today pt is seen and examined at bedside. He is doing well. No complaints at this time. Still complains of depression. Denies any [place], dizziness, tremors, f/c, sob, cp, abd pain, urinary or bm changes. Dx: Hematemesis / Alcohol intoxication / Alcohol withdrawals Discharge Exam - Head Exam Head Exam: ATRAUMATIC, NORMAL INSPECTION, NORMOCEPHALIC - Eye Exam Eye Exam: EOMI, Normal appearance, PERRL - ENT Exam ENT Exam: Mucous Membranes Moist - Respiratory Exam Respiratory Exam: Clear to PA & Lateral, UNREMARKABLE. absent: Rales, Wheezes - Cardiovascular Exam Cardiovascular Exam: REGULAR RHYTHM, RRR, +S1, +S2 - GI/Abdominal Exam GI & Abdominal Exam: Soft. absent: Distended, Tenderness - Neurological Exam Neurological exam: Alert, Oriented x3 - Psychiatric Exam Psychiatric exam: Normal Affect, Normal Mood - Skin Skin Exam: Dry, Intact, Normal Color, Warm Discharge Plan - Discharge Medications Prescriptions: Folic Acid 1 mg PO DAILY #30 tab Multivitamin [Kzk-Jskzyu-Grhoy] 1 each PO DAILY #30 tablet Pantoprazole Sodium [Protonix] 40 mg PO DAILY #30 ect Thiamine [Vitamin B1 Tab] 100 mg PO DAILY #30 tab - Follow Up Plan Condition: GOOD Disposition: HOME/ ROUTINE Instructions: Pancreatitis (DC), Alcohol Intoxication (DC) Additional Instructions: [place] [facility] [place] July 25 at 10:00 AM. Follow up with Dr Monsivais at [facility] FridayJuly 26 at 10:45 AM. If your symptoms recur return to the closest ED. Take your medications as prescribed. Referrals: Tommie Alexander MD [Primary Care Provider] - <Alaina Goel - Last Filed: 07/22/16 16:48> Provider - Provider Date of Admission: 07/14/16 18:22 Attending physician: Alaina Goel MD Primary care physician: Tommie Alexander MD Hospital Course - Lab Results Lab Results: Micro Results 07/16/16 06:30 Blood Blood Culture - Final NO GROWTH AFTER 5 DAYS 07/16/16 06:30 Blood Gram Stain - Final TEST NOT PERFORMED 07/16/16 06:30 Blood Blood Culture - Final NO GROWTH AFTER 5 DAYS 07/16/16 06:30 Blood Gram Stain - Final TEST NOT PERFORMED 07/16/16 19:00 Stool C. difficile Antigen & Toxin A,B (M - Final 07/14/16 20:00 Urine Urine Culture - Final No Growth (<1,000 CFU/ML) Most Recent Lab Values WBC 6.4 10^3/ul (4.5-11.0) 07/22/16 06:40 RBC 4.18 10^6/uL (3.5-6.1) 07/22/16 06:40 Hgb 10.4 gm/dL (14.0-18.0) L 07/22/16 06:40 Hct 33.1 % (42.0-52.0) L 07/22/16 06:40 MCV 79.2 fL (80.0-105.0) L 07/22/16 06:40 MCH 24.9 pg (25.0-35.0) L 07/22/16 06:40 MCHC 31.4 g/dl (31.0-37.0) 07/22/16 06:40 RDW 19.6 % (11.5-14.5) H 07/22/16 06:40 Plt Count 193 10^3/uL (120.0-450.0) 07/22/16 06:40 MPV 8.7 fl (7.0-11.0) 07/22/16 06:40 Gran % 54.2 % (50.0-68.0) 07/22/16 06:40 Lymph % (Auto) 28.0 % (22.0-35.0) 07/22/16 06:40 Eaton % (Auto) 10.5 % (1.0-6.0) H 07/22/16 06:40 Eos % (Auto) 6.8 % (1.5-5.0) H 07/22/16 06:40 Baso % (Auto) 0.5 % (0.0-3.0) 07/22/16 06:40 Gran # 3.45 (1.4-6.5) 07/22/16 06:40 Lymph # 1.8 (1.2-3.4) 07/22/16 06:40 Eaton # 0.7 (0.1-0.6) H 07/22/16 06:40 Eos # 0.4 (0.0-0.7) 07/22/16 06:40 Baso # 0.03 K/mm3 (0.0-2.0) 07/22/16 06:40 PT 13.1 Seconds (9.9-11.8) H 07/17/16 06:30 INR 1.21 (0.93-1.08) H 07/17/16 06:30 Sodium 136 mmol/L (132-148) 07/22/16 06:40 Potassium 3.9 mmol/L (3.6-5.0) 07/22/16 06:40 Chloride 97 mmol/L (98-107) L 07/22/16 06:40 Carbon Dioxide 29 mmol/L (21-33) 07/22/16 06:40 Anion Gap 14 (10-20) 07/22/16 06:40 BUN 15 mg/dL (7-21) 07/22/16 06:40 Creatinine 1.0 mg/dL (0.5-1.4) 07/22/16 06:40 Est GFR ( Amer) > 60 07/22/16 06:40 Est GFR (Non-Af Amer) > 60 07/22/16 06:40 Random Glucose 110 mg/dL (70-110) 07/22/16 06:40 Calcium 8.8 mg/dL (8.4-10.5) 07/22/16 06:40 Phosphorus 4.6 mg/dL (2.5-4.5) H 07/19/16 06:30 Magnesium 1.9 mg/dL (1.7-2.2) 07/19/16 06:30 Total Bilirubin 0.7 mg/dL (0.2-1.3) 07/22/16 06:40 AST 39 U/L (15-59) 07/22/16 06:40 ALT 39 U/L (7-56) 07/22/16 06:40 Alkaline Phosphatase 78 U/L (38-133) 07/22/16 06:40 Lactate Dehydrogenase 577 U/L (333-699) 07/14/16 17:00 Total Creatine Kinase 210 U/L (35-230) 07/14/16 17:00 Troponin I 0.02 ng/mL D 07/15/16 06:50 Total Protein 7.6 g/dL (5.8-8.3) 07/22/16 06:40 Albumin 3.8 g/dL (3.0-4.8) 07/22/16 06:40 Globulin 3.8 gm/dL 07/22/16 06:40 Albumin/Globulin Ratio 1.0 (1.1-1.8) L 07/22/16 06:40 Lipase 485 U/L (23-300) H 07/14/16 17:00 Procalcitonin 0.41 NG/ML (0.19-0.49) 07/16/16 06:30 Urine Color Yellow (YELLOW) 07/14/16 20:00 Urine Appearance Clear (CLEAR) 07/14/16 20:00 Urine pH 6.0 (4.7-8.0) 07/14/16 20:00 Ur Specific [place] 1.015 (1.005-1.035) 07/14/16 20:00 Urine Protein Trace mg/dL (<30 mg/dL) H 07/14/16 20:00 Urine Glucose (UA) Negative mg/dL (NEGATIVE) 07/14/16 20:00 Urine Ketones Negative mg/dL (NEGATIVE) 07/14/16 20:00 Urine Blood Negative (NEGATIVE) 07/14/16 20:00 Urine Nitrate Negative (NEGATIVE) 07/14/16 20:00 Urine Bilirubin Negative (NEGATIVE) 07/14/16 20:00 Urine Urobilinogen 0.2 E.U./dL (<1 E.U./dL) 07/14/16 20:00 Ur Leukocyte Esterase Negative Vanda/uL (NEGATIVE) 07/14/16 20:00 Urine RBC 0 - 2 /hpf (0-2) 07/14/16 20:00 Urine WBC 0 - 2 /hpf (0-6) 07/14/16 20:00 Ur Epithelial Cells 0 - 2 /hpf (0-5) 07/14/16 20:00 Alcohol, Quantitative 269 mg/dL (0-10) H 07/14/16 17:00 Hepatitis A IgM Ab Negative (NEGATIVE) 07/15/16 08:30 Hep Bs Antigen Negative (NEGATIVE) 07/15/16 08:30 Hep B Core IgM Ab Negative (NEGATIVE) 07/15/16 08:30 Hepatitis C Antibody Negative (NEGATIVE) 07/15/16 08:30 Attending/Attestation - Attestation I have personally seen and examined this patient.: Yes I have fully participated in the care of the patient.: Yes I have reviewed all pertinent clinical information, including history, physical exam and plan: Yes Notes (Text): 07/22/16 16:45 attending note; I have seen and examined the patient with the resident at the bedside. This is a 55 year old male with history of alcohol abuse, tobacco use, copd, chronic pancreatitis, esophagitis, gastritis who got admitted for evaluation of hematemesis. Endoscopy during previous admission revealed esophagitis, gastritis and esophageal stenosis. Currently treated for alcohol withdrawal symptoms. Improved significantly. LFTs improving. Thrombocytopenia is resolving. Tolerating pured diet. Advance to soft diet today. Complete alcohol cessation is strongly advised. Continue protonix. GI evaluation appreciated. Outpatient EGD recommended. Psychiatric evaluation appreciated. The patient will be discharged home today. Upon discharge the patient will follow-up with [facility] clinic and t GI clinic for repeat endoscopy. Diagnosis; Alcohol abuse Gastritis Thrombocytopenia Elevated LFTs Noncompliance with follow-up
--- NOTE | 2016-07-22 18:35 | CON ---
DATE: 07/22/2016 HISTORY OF PRESENT ILLNESS: Shortly, the patient is a 55-year-old male with history of alc ohol use disorder. The patient has multiple medical complications due to his chronic alcohol use suc h as chronic pancreatitis, esophagitis, gastritis, history of hematemesis. The patient was admitted to the medical floor for evaluation of bloody vomiting. Psych consult was called for evaluation of d epressive symptoms. The patient was admitted on 07/14. Psych consult was called 07/22. The patient was found to be alert and oriented, pleasant and superficially cooperative. The patient reported th at he is not satisfied with the hospital care because his needs were not addressed in a timely manner . The patient reported being depressed, mostly due to his inability to work, but this rewriter would l yovani to emphasize the fact that inability to work is related to chronic alcoholism and multiple compli cations due to his chronic use of alcohol. The patient reported being depressed, but denied feeling of hopelessness and helplessness. The patient had thoughts of drinking of alcohol and a passive wish to be , but denied any active plan or intent to kill himself. The patient denied hearing voices and denied seeing things. At times when the patient has withdrawal he could see something on the co rner of his eyes. The patient feels comfortable during the interview. VITAL SIGNS: Reviewed. Temperature 97.9, pulse of 65, blood pressure 87/45, respirations 17, oxygen saturation is 99. MEDICATIONS: Reviewed. The patient was on DuoNeb, Librium, Pepcid, folic acid, Ativan, multivitamin s, Zofran, thiamin and Geodon as needed. The last dose of Geodon was on the . PAST PSYCHIATRIC HISTORY: The patient was never admitted to psychiatric inpatient unit and denied siu icidal attempts in the past. MENTAL STATUS EXAMINATION: The patient appears to be alert and oriented, wears street clothes, fair eye contact. Speech was normal rate, tone, quality, and quantity. Mood described as depressed. Aff ect was constricted, irritable. Thought process was coherent and goal directed. Thought content: T he patient denied visual, auditory, or tactile hallucinations and any paranoid ideation. The patient has passive thoughts of dying, but denied any active plan or intent to kill himself. Insight and ju dgment are limited in regards of his alcohol use. Impulses are well controlled. IMPRESSION: Rule out mood disorder due to his chronic alcohol consumption, alcohol use disorder. Mu ltiple medical complications due to his chronic alcohol abuse. Please see medical team note for more detailed information. PLAN: The patient has future oriented plans. The patient wants to apply for disability because he c annot work. The patient lives in his friend's garage. The patient was advised to go to AA meeting, NA meetings and social work evaluation is recommended. Collateral information was obtained from nurs ing staff. The patient has a very good appetite and tolerates his medication well. There are no sig ns of psychosis. There are no signs of depression. The patient never verbalizing any thoughts of ki lling himself. Denied thoughts of killing others, pleasant and cooperative and no behavioral inciden ts. The patient complained of depression the day of discharge and most likely the patient wants to s matt in the hospital longer. Meanwhile, this rewriter will sign off from this case. The patient does n ot meet the criteria to force psychiatric inpatient admission. Thank you very much for letting me participate in the care of your patient. The case was discussed w ith the medical team. Matilde Anderson MD cc: [id number] TT: 07/22/2016 18:34:46 Confirmation # [id number] Dictation # [id number] mychal
== END 2016-07-22 14:17 | disposition home or self-care (01) | DRG 176 ==
LOC: ED 16:41 → ERH 18:22 → 2RNO 21:27 → 3RSO 07-21 11:12
PROVIDERS: ADMIT Internal Medicine; ATTEND Internal Medicine
DX: K22.11 Ulcer of esophagus with bleeding (principal); F10.231 Alcohol dependence with withdrawal delirium; D69.6 Thrombocytopenia, unspecified; K86.1 Other chronic pancreatitis; E83.42 Hypomagnesemia; E87.1 Hypo-osmolality and hyponatremia; J44.9 Chronic obstructive pulmonary disease, unspecified; E87.6 Hypokalemia; K22.2 Esophageal obstruction; F10.229 Alcohol dependence with intoxication, unspecified; K29.70 Gastritis, unspecified, without bleeding; D64.9 Anemia, unspecified; F32.9 Major depressive disorder, single episode, unspecified; Y90.8 Blood alcohol level of 240 mg/100 ml or more; F41.9 Anxiety disorder, unspecified; R79.89 Other specified abnormal findings of blood chemistry; Z91.19 Patient's noncompliance with other medical treatment and regimen; Z78.1 Physical restraint status; Z87.891 Personal history of nicotine dependence; Z80.0 Family history of malignant neoplasm of digestive organs

== ENCOUNTER 2016-07-27 22:17 | Observation (INO) | payer MEDICAID, OTHER ==
[2016-07-27 22:28] VITALS: BMI 24.2
--- NOTE | 2016-07-27 22:34 | ED PDOC ---
Arrival/HPI - General Chief Complaint: Alcohol Ingestion Time Seen by Provider: 07/27/16 22:31 Historian: Patient, EMS - History of Present Illness Narrative History of Present Illness (Text): 07/27/16 22:33 Travis Royal is a 55 year old male, whose past medical history includes chronic alcohol abuse, who presents to the emergency department brought in by EMS for public intoxication tonight. Patient admits to drinking alcohol tonight. Patient is well known to ER staff and has been seen on multiple occasions for similar complaints. The patient denies any fever, chills, chest pain, shortness of breath, abdominal pain, nausea, vomiting, diarrhea, urinary symptoms, back pain, neck pain, headache, dizziness, or any other complaints. Time/Duration: Other (tonight) Symptom Onset: Gradual Symptom Course: Unchanged Activities at Onset: Light Past Medical History - Provider Review Nursing Documentation Reviewed: Yes - Past History Past History: No Previous - Infectious Disease Hx of Infectious Diseases: None - Tetanus Immunization Tetanus Immunization: Unknown - Cardiac Hx Hypertension: Yes - Pulmonary Hx Chronic Obstructive Pulmonary Disease (COPD): Yes - Neurological HX Cerebrovascular Accident: No - HEENT Hx HEENT Disorder: No - Renal Hx Renal Disorder: No - Endocrine/Metabolic Hx Diabetes Mellitus Type 2: Yes - Hematological/Oncological Hx Cancer: Yes (Pancreatic) - Integumentary Hx Dermatological Disorder: No - Musculoskeletal/Rheumatological Hx Falls: Yes - Gastrointestinal Hx Gastroesophageal Reflux: Yes - Genitourinary/Gynecological Hx Genitourinary Disorders: No - Psychiatric Hx Psychophysiologic Disorder: Yes (ETOH) Hx Anxiety: Yes Hx Depression: Yes Hx Substance Use: No Other/Comment: Alcohol Abuse - Surgical History Hx Cardiac Catheterization: No Hx Coronary Stent: No Hx Musculoskeletal Surgery: Yes - Anesthesia Hx Anesthesia: Yes Hx Anesthesia Reactions: No Hx Malignant Hyperthermia: No - Suicidal Assessment Feels Threatened In Home Enviroment: No Family/Social History - Physician Review Nursing Documentation Reviewed: Yes Family/Social History: No Known Family HX Smoking Status: Light Smoker < 10 Cigarettes Daily Hx Alcohol Use: Yes Amount per day: 10 Hx Substance Use: No Hx Substance Use Treatment: No Allergies/Home Meds Allergies/Adverse Reactions: Allergies Penicillins Allergy (Verified 04/18/16 22:38) RASH Review of Systems - Physician Review All systems were reviewed & negative as marked: Yes - Review of Systems Constitutional: Normal. absent: Fevers Eyes: Normal ENT: Normal Respiratory: Normal. absent: SOB, Cough Cardiovascular: Normal. absent: Chest Pain Gastrointestinal: Normal. absent: Abdominal Pain, Diarrhea, Nausea, Vomiting Genitourinary Male: Normal. absent: Dysuria, Frequency, Hematuria, Urinary Output Changes Musculoskeletal: Normal. absent: Back Pain, Neck Pain Skin: Normal. absent: Rash Neurological: Normal. absent: Headache, Dizziness Endocrine: Normal Hemo/Lymphatic: Normal Psychiatric: Normal Physical Exam Vital Signs Reviewed: Yes Vital Signs Temp Pulse Resp BP Pulse Ox 07/28/16 01:00 82 18 121/84 99 07/27/16 23:54 98.9 F 81 16 125/87 98 07/27/16 22:21 97.8 F 80 18 128/76 97 Temperature: Afebrile Blood Pressure: Normal Pulse: Regular Respiratory Rate: Normal Appearance: Positive for: Well-Appearing, Non-Toxic, Comfortable Pain Distress: None Mental Status: Positive for: Alert and Oriented X 3 - Systems Exam Head: Present: Atraumatic, Normocephalic Pupils: Present: PERRL Extroacular Muscles: Present: EOMI Conjunctiva: Present: Normal Mouth: Present: Moist Mucous Membranes Neck: Present: Normal Range of Motion Respiratory/Chest: Present: Clear to Auscultation, Good Air Exchange. No: Respiratory Distress, Accessory Muscle Use Cardiovascular: Present: Regular Rate and Rhythm, Normal S1, S2. No: Murmurs Abdomen: Present: Normal Bowel Sounds. No: Tenderness, Distention, Peritoneal Signs Back: Present: Normal Inspection Upper Extremity: Present: Normal Inspection. No: Cyanosis, Edema Lower Extremity: Present: Normal Inspection. No: Edema Neurological: Present: GCS=15, CN II-XII Intact, Speech Normal Skin: Present: Warm, Dry, Normal Color. No: Rashes Psychiatric: Present: Alert, Oriented x 3, Normal Insight, Normal Concentration Medical Decision Making ED Course and Treatment: 07/27/16 22:33 Impression: 55 year old male brought in for public intoxication tonight. Differential Diagnosis included but are not limited to: alcohol intoxication Plan: -- Reassess and disposition Prior Visits: Notes and results from previous visits were reviewed. Patient is well known to ER staff and has been seen on multiple occasions for similar complaints. ED OBSERVATION Discharge: Yes Date of observation admission: 07/27/16 Time of observation admission: 22:35 - Observation admission statement Patient is being placed in observation because:: alcohol intoxication - Goals of Observation Goals of observation are:: sobriety, observe for signs of withdrawal - Progress Note Progress Note: 07/27/16 22:35 Pt brought in for alcohol intoxication. Pt resting comfortable, in no acute distress. Will observe pending sobriety. 07/28/16 00:35 Pt sleeping currently, in no acute distress. 07/28/16 02:12 Pt stable, in no acute distress. Ambulating with steady gait, no evidence of alcohol intoxication. Will d/c pt. - Scribe Statement The provider has reviewed the documentation as recorded by the Mary Kaiser Provider Attestation: All medical record entries made by the Mary were at my direction and personally dictated by me. I have reviewed the chart and agree that the record accurately reflects my personal performance of the history, physical exam, medical decision making, and the department course for this patient. I have also personally directed, reviewed, and agree with the discharge instructions and disposition. Disposition/Present on Arrival - Present on Arrival Any Indicators Present on Arrival: No History of DVT/PE: No History of Uncontrolled Diabetes: No Urinary Catheter: No History of Decub. Ulcer: No History Surgical Site Infection Following: None - Disposition Have Diagnosis and Disposition been Completed?: Yes Diagnosis: Alcohol abuse Disposition: HOME/ ROUTINE Disposition Time: 02:12 Patient Plan: Discharge Condition: STABLE
[2016-07-27 23:55] VITALS: TEMP 98.9
[2016-07-28 02:15] VITALS: BP 121/84; PULSE 82; RESP 18; O2SAT 99
== END 2016-07-28 02:10 | disposition home or self-care (01) ==
LOC: ED 22:17 → EROBSV 22:35
PROVIDERS: ADMIT Emergency Medicine; ATTEND Emergency Medicine
DX: F10.10 Alcohol abuse, uncomplicated (principal); Y90.9 Presence of alcohol in blood, level not specified
CPT/HCPCS: 99281; G0378

== ENCOUNTER 2016-07-29 02:42 | Emergency (ER) | payer MEDICAID, OTHER ==
[2016-07-29 02:43] VITALS: BMI 24.2
--- NOTE | 2016-07-29 03:25 | ED PDOC ---
Arrival/HPI - General Chief Complaint: Alcohol Ingestion Time Seen by Provider: 07/29/16 02:52 Historian: Patient - History of Present Illness Narrative History of Present Illness (Text): 07/29/16 03:22 Travis Royal is a 55 year old male, whose past medical history includes chronic alcohol abuse and chronic pancreatitis, who presents to the emergency department brought in by EMS for public intoxication tonight. Patient admits to drinking alcohol tonight. Patient well known to ER staff and has been seen on multiple occasions for similar complaints. The patient denies any fever, chills , chest pain, shortness of breath, abdominal pain, nausea, vomiting, diarrhea, urinary symptoms, back pain, neck pain, headache, dizziness, or any other complaints. Symptom Onset: Gradual Symptom Course: Unchanged Activities at Onset: Light Context: Street Past Medical History - Provider Review Nursing Documentation Reviewed: Yes - Past History Past History: No Previous - Infectious Disease Hx of Infectious Diseases: None - Tetanus Immunization Tetanus Immunization: Unknown - Cardiac Hx Hypertension: Yes - Pulmonary Hx Chronic Obstructive Pulmonary Disease (COPD): Yes - Neurological HX Cerebrovascular Accident: No - HEENT Hx HEENT Disorder: No - Renal Hx Renal Disorder: No - Endocrine/Metabolic Hx Diabetes Mellitus Type 2: Yes - Hematological/Oncological Hx Cancer: Yes (Pancreatic) - Integumentary Hx Dermatological Disorder: No - Musculoskeletal/Rheumatological Hx Falls: Yes - Gastrointestinal Hx Gastroesophageal Reflux: Yes - Genitourinary/Gynecological Hx Genitourinary Disorders: No - Psychiatric Hx Psychophysiologic Disorder: Yes (ETOH) Hx Anxiety: Yes Hx Depression: Yes Hx Substance Use: No Other/Comment: Alcohol Abuse - Surgical History Hx Cardiac Catheterization: No Hx Coronary Stent: No Hx Musculoskeletal Surgery: Yes - Anesthesia Hx Anesthesia: Yes Hx Anesthesia Reactions: No Hx Malignant Hyperthermia: No - Suicidal Assessment Feels Threatened In Home Enviroment: No Family/Social History - Physician Review Nursing Documentation Reviewed: Yes Family/Social History: No Known Family HX Smoking Status: Light Smoker < 10 Cigarettes Daily Hx Alcohol Use: Yes Frequency of alcohol use: Daily Amount per day: 10 Hx Substance Use: No Hx Substance Use Treatment: No Allergies/Home Meds Allergies/Adverse Reactions: Allergies Penicillins Allergy (Verified 04/18/16 22:38) RASH Review of Systems - Physician Review All systems were reviewed & negative as marked: Yes - Review of Systems Constitutional: Normal. absent: Fevers Eyes: Normal ENT: Normal Respiratory: Normal. absent: SOB, Cough Cardiovascular: Normal. absent: Chest Pain Gastrointestinal: Normal. absent: Abdominal Pain, Diarrhea, Nausea, Vomiting Genitourinary Male: Normal. absent: Dysuria, Frequency, Hematuria, Urinary Output Changes Musculoskeletal: Normal. absent: Back Pain, Neck Pain Skin: Normal. absent: Rash Neurological: Normal. absent: Headache, Dizziness Endocrine: Normal Hemo/Lymphatic: Normal Psychiatric: Other (+alcohol intoxication) Physical Exam Vital Signs Reviewed: Yes Vital Signs Temp Pulse Resp BP Pulse Ox 07/29/16 06:14 99 H 16 95 07/29/16 03:38 98.6 F 89 16 125/94 H 97 Temperature: Afebrile Blood Pressure: Normal Pulse: Regular Respiratory Rate: Normal Appearance: Positive for: Well-Appearing, Comfortable Pain Distress: None Mental Status: Positive for: Alert and Oriented X 3 - Systems Exam Head: Present: Atraumatic, Normocephalic Pupils: Present: PERRL Extroacular Muscles: Present: EOMI Conjunctiva: Present: Normal Mouth: Present: Moist Mucous Membranes Neck: Present: Normal Range of Motion Respiratory/Chest: Present: Clear to Auscultation, Good Air Exchange. No: Respiratory Distress, Accessory Muscle Use Cardiovascular: Present: Regular Rate and Rhythm, Normal S1, S2. No: Murmurs Abdomen: Present: Normal Bowel Sounds. No: Tenderness, Distention, Peritoneal Signs Back: Present: Normal Inspection Upper Extremity: Present: Normal Inspection. No: Cyanosis, Edema Lower Extremity: Present: Normal Inspection. No: Edema Neurological: Present: GCS=15, CN II-XII Intact, Speech Normal Skin: Present: Warm, Dry, Normal Color. No: Rashes Psychiatric: Present: Alert, Oriented x 3, Normal Insight, Normal Concentration Medical Decision Making ED Course and Treatment: 07/29/16 03:22 Impression: 55 year old male brought in for public intoxication tonight. Differential Diagnosis included but are not limited to: alcohol intoxication Plan: -- Reassess and disposition Prior Visits: Notes and results from previous visits were reviewed. Patient is well known to ER staff and has been seen on multiple occasions for similar complaints. - Scribe Statement The provider has reviewed the documentation as recorded by the Mary Kaiser Provider Attestation: All medical record entries made by the Scribe were at my direction and personally dictated by me. I have reviewed the chart and agree that the record accurately reflects my personal performance of the history, physical exam, medical decision making, and the department course for this patient. I have also personally directed, reviewed, and agree with the discharge instructions and disposition. Disposition/Present on Arrival - Present on Arrival Any Indicators Present on Arrival: No History of DVT/PE: No History of Uncontrolled Diabetes: No Urinary Catheter: No History of Decub. Ulcer: No History Surgical Site Infection Following: None - Disposition Have Diagnosis and Disposition been Completed?: Yes Diagnosis: Alcohol abuse Disposition: HOME/ ROUTINE Disposition Time: 06:30 Patient Plan: Discharge Condition: GOOD
[2016-07-29 03:41] VITALS: BP 125/94; RESP 16; TEMP 98.6
[2016-07-29 06:15] VITALS: PULSE 99; O2SAT 95
== END 2016-07-29 06:18 | disposition home or self-care (01) ==
LOC: ED 02:42
DX: F10.10 Alcohol abuse, uncomplicated (principal); Y90.9 Presence of alcohol in blood, level not specified

== ENCOUNTER 2016-07-29 19:20 | Emergency (ER) | payer MEDICAID, OTHER ==
[2016-07-29 19:35] VITALS: BMI 27.4
[2016-07-29 19:41] VITALS: RESP 16; TEMP 99
--- NOTE | 2016-07-29 20:18 | ED PDOC ---
Arrival/HPI - General Chief Complaint: Alcohol Ingestion Time Seen by Provider: 07/29/16 20:14 Historian: Patient - History of Present Illness Narrative History of Present Illness (Text): 07/29/16 20:24 A 55 year old male presents to the emergency department with alcohol intoxication complaining of a dry cough with a runny nose for the past couple of days. Patient states his last drink was around noon today. He denies any fever, nausea, vomiting or any other complaints at this time. Time/Duration: Other Symptom Onset: Other Symptom Course: Unchanged Activities at Onset: Rest Context: Home Past Medical History - Provider Review Nursing Documentation Reviewed: Yes - Past History Past History: No Previous - Infectious Disease Hx of Infectious Diseases: None - Tetanus Immunization Tetanus Immunization: Unknown - Cardiac Hx Cardiac Disorders: Yes Hx Hypertension: Yes - Pulmonary Hx Respiratory Disorders: Yes Hx Chronic Obstructive Pulmonary Disease (COPD): Yes - Neurological Hx Neurological Disorder: No HX Cerebrovascular Accident: No - HEENT Hx HEENT Disorder: No - Renal Hx Renal Disorder: No - Endocrine/Metabolic Hx Endocrine Disorders: Yes Hx Diabetes Mellitus Type 2: Yes - Hematological/Oncological Hx Blood Disorders: Yes Hx Cancer: Yes - Integumentary Hx Dermatological Disorder: No - Musculoskeletal/Rheumatological Hx Musculoskeletal Disorders: Yes Hx Falls: Yes - Gastrointestinal Hx Gastrointestinal Disorders: Yes Hx Gastroesophageal Reflux: Yes - Genitourinary/Gynecological Hx Genitourinary Disorders: No - Psychiatric Hx Psychophysiologic Disorder: Yes (ETOH) Hx Anxiety: Yes Hx Depression: Yes Hx Substance Use: No Other/Comment: Alcohol Abuse - Surgical History Hx Cardiac Catheterization: No Hx Coronary Stent: No Hx Musculoskeletal Surgery: Yes - Anesthesia Hx Anesthesia: Yes Hx Anesthesia Reactions: No Hx Malignant Hyperthermia: No - Suicidal Assessment Feels Threatened In Home Enviroment: No Family/Social History - Physician Review Nursing Documentation Reviewed: Yes Family/Social History: Unknown Family HX Smoking Status: Former Smoker Hx Alcohol Use: Yes Frequency of alcohol use: Daily Amount per day: 10 Hx Substance Use: No Hx Substance Use Treatment: No Allergies/Home Meds Allergies/Adverse Reactions: Allergies Penicillins Allergy (Verified 07/29/16 19:35) RASH Physical Exam - Physical Exam Narrative Physical Exam (Text): - Review of Systems Constitutional: Normal. absent: Fatigue, Weight Change, Fevers Eyes: Normal ENT: Runny Nose. Respiratory: Cough absent: SOB,Sputum Cardiovascular: Normal absent: Chest pain, Palpitations, Syncope Gastrointestinal: Normal absent: Abdominal pain, Diarrhea, Nausea, Vomiting Genitourinary: Normal. absent: Dysuria, Frequency, Hematuria Musculoskeletal: Normal. absent: Arthralgias, Back Pain, Neck Pain Skin: Normal Neurological: Normal absent: Focal Weakness Endocrine: Normal Hemo/Lymphatic: Normal Psychiatric: Normal - Physical exam Patient appears age appropriate, speaking full sentences without difficulty. Patient is clinical sober. - Systems Exam Head: Present: Atraumatic, Normocephalic Pupils: Present: PERRL Extraocular Muscles: Present: EOMI Conjunctiva: Present: Normal Mouth: Present: Moist Mucous Membranes Neck: Present: Normal Range of Motion. No: MIDLINE TENDERNESS, Paraspinal Tenderness Respiratory/Chest: Present: Clear to Auscultation, Good Air Exchange. No: Respiratory Distress, Accessory Muscle Use, Tachypneic Cardiovascular: Present: Regular Rate and Rhythm, Normal S1, S2, Peripheral Pulses Present. No: Murmurs Abdomen: Present: Normal Bowel Sounds, No: Tenderness, Peritoneal Signs, Rebound, Guarding, Distention Back: Present: Normal Inspection. No: Midline Tenderness, Paraspinal Tenderness Upper Extremity: Present: Normal Inspection. No: Cyanosis, Edema Lower Extremity: Present: Normal Inspection. No: Edema Neurological: Present: GCS=15, Speech Normal, cranial nerves II through XII fully intact with no cerebellar abnormality, neuro-sensory fully intact. No focal neurological deficits. Skin: Present: Warm, Dry, Normal Color. No: Rashes Lymphatic: Present: OX3, NI, NC Psychiatric: Present: Alert, Oriented x 3, Normal Insight, Normal Concentration Vital Signs Reviewed: Yes Vital Signs Temp Pulse Resp BP Pulse Ox 07/29/16 19:35 99 F 99 H 16 115/76 95 Temperature: Afebrile Blood Pressure: Normal Pulse: Regular Respiratory Rate: Normal Appearance: Positive for: Well-Appearing, Non-Toxic, Comfortable Pain Distress: None Mental Status: Positive for: Alert and Oriented X 3 Medical Decision Making ED Course and Treatment: 07/29/16 20:24 Impression: A 55 year old male with a cough and runny nose. Pt in no distress and does not appear short of breath. Differential Diagnosis include but are not limited to: viral illness vs. pneumonia vs. bronchitis Plan: -- Chest X-ray -- Reassess and disposition Prior Visits: Notes and results from previous visits were reviewed. Previous records reviewed, patient was seen by vocational education teacher while he was admitted into the hospital with hematemesis, he has a diagnosis of recurrent upper GI bleeds, esophagitis with coffee ground emesis, and noncompliance with Protonix. Patient has also been seen in emergency department multiple times with alcohol intoxication. Progress Notes: 07/29/16 21:46 Chest xray shows no cardiomegaly, no effusions, no infiltrates. Interpreted by me. pt in no distress in the ER no n/v no chest pain, denies sob, denies pascual. pt states he feels comfortable being dc'd home with outpatient f/u pt ambulates with steady gait, tolerating PO, clinically sober. pt has no tachycardia, no tremors, no other s/s of alcohol withdrawal Pt states he understands to return to the ER right away for new or worsening symptoms or for inability to f/u with PMD or specialist as instructed. Patient states that he fully agrees with and understands discharge instructions. States that he agrees with the plan and disposition. Verbalized and repeated discharge instructions and plan. I have given the patient opportunity to ask any additional questions. - RAD Interpretation Radiology Orders: 07/29/16 20:32 CHEST TWO VIEWS (PA/LAT) [RAD] Stat - Scribe Statement The provider has reviewed the documentation as recorded by the Scribe Lynne Montana Provider Scribe Attestation: All medical record entries made by the Scribe were at my direction and personally dictated by me. I have reviewed the chart and agree that the record accurately reflects my personal performance of the history, physical exam, medical decision making, and the department course for this patient. I have also personally directed, reviewed, and agree with the discharge instructions and disposition. Disposition/Present on Arrival - Present on Arrival Any Indicators Present on Arrival: No History of DVT/PE: No History of Uncontrolled Diabetes: No Urinary Catheter: No History of Decub. Ulcer: No History Surgical Site Infection Following: None - Disposition Have Diagnosis and Disposition been Completed?: Yes Diagnosis: Cough Disposition: HOME/ ROUTINE Disposition Time: 22:02 Patient Plan: Discharge Condition: GOOD Discharge Instructions (ExitCare): Acute Cough (ED), Cold Symptoms (ED) Additional Instructions: PLEASE RETURN TO THE EMERGENCY DEPARTMENT FOR NEW OR WORSENING SYMPTOMS. RETURN RIGHT AWAY IF YOU CANNOT FOLLOW UP WITH YOUR PRIMARY CARE DOCTOR, CLINIC, OR SPECIALIST IN 1-2 DAYS. Prescriptions: Azithromycin [Zithromax] 250 mg PO DAILY #4 tab Referrals: Tommie Alexander MD [Primary Care Provider] - Follow up with primary
[2016-07-29 22:23] VITALS: BP 110/63; PULSE 87; O2SAT 96
--- NOTE | 2016-07-30 07:38 | RAD ---
HISTORY: cough COMPARISON: Comparison is made to the previous study dated 07/18/2016 TECHNIQUE: Chest PA and lateral FINDINGS: LUNGS: No active pulmonary disease. PLEURA: No significant pleural effusion identified. No pneumothorax apparent. CARDIOVASCULAR: Normal. OSSEOUS STRUCTURES: No significant abnormalities. VISUALIZED UPPER ABDOMEN: Normal. OTHER FINDINGS: None. IMPRESSION: No active disease.
--- NOTE | 2016-07-30 09:56 | CARD ---
APPROVED REPORT EKG Measurement Heart [id number] <Conclusion> Normal sinus rhythm Normal ECG
== END 2016-07-29 22:22 | disposition home or self-care (01) ==
LOC: ED 19:20
DX: R05 Cough (principal); I10 Essential (primary) hypertension; Z87.891 Personal history of nicotine dependence

== ENCOUNTER 2016-08-06 13:52 | Emergency (ER) | payer MEDICAID, OTHER ==
[2016-08-06 13:57] VITALS: BMI 25.8
[2016-08-06 14:02] VITALS: TEMP 98.2
--- NOTE | 2016-08-06 14:16 | ED PDOC ---
Arrival/HPI - General Chief Complaint: Abdominal Pain Time Seen by Provider: 08/06/16 13:56 Historian: Patient - History of Present Illness Time/Duration: Prior to Arrival Symptom Onset: Gradual Symptom Course: Unchanged Severity Level: Mild Activities at Onset: Rest Associated Symptoms (Text): 08/06/16 14:14 Patient reports generalized abdominal pain which began this morning. No nausea vomiting or diarrhea. No genitourinary symptoms. No back pain. He is well-known to the emergency department staff. He reports his last alcohol was sometime last night. Past Medical History - Past History Past History: No Previous - Infectious Disease Hx of Infectious Diseases: None - Tetanus Immunization Tetanus Immunization: Unknown - Cardiac Hx Cardiac Disorders: Yes Hx Hypertension: Yes - Pulmonary Hx Respiratory Disorders: Yes Hx Chronic Obstructive Pulmonary Disease (COPD): Yes - Neurological Hx Neurological Disorder: No HX Cerebrovascular Accident: No - HEENT Hx HEENT Disorder: No - Renal Hx Renal Disorder: No - Endocrine/Metabolic Hx Endocrine Disorders: Yes Hx Diabetes Mellitus Type 2: Yes - Hematological/Oncological Hx Blood Disorders: Yes Hx Cancer: Yes - Integumentary Hx Dermatological Disorder: No - Musculoskeletal/Rheumatological Hx Musculoskeletal Disorders: Yes Hx Falls: Yes - Gastrointestinal Hx Gastrointestinal Disorders: Yes Hx Gastroesophageal Reflux: Yes - Genitourinary/Gynecological Hx Genitourinary Disorders: No - Psychiatric Hx Psychophysiologic Disorder: Yes (ETOH) Hx Anxiety: Yes Hx Depression: Yes Hx Substance Use: No Other/Comment: Alcohol Abuse - Surgical History Hx Cardiac Catheterization: No Hx Coronary Stent: No Hx Musculoskeletal Surgery: Yes - Anesthesia Hx Anesthesia: Yes Hx Anesthesia Reactions: No Hx Malignant Hyperthermia: No - Suicidal Assessment Feels Threatened In Home Enviroment: No Family/Social History - Physician Review Nursing Documentation Reviewed: Yes Family/Social History: Unknown Family HX Smoking Status: Former Smoker Hx Alcohol Use: Yes Frequency of alcohol use: Daily Amount per day: 10 Hx Substance Use: No Hx Substance Use Treatment: No Allergies/Home Meds Allergies/Adverse Reactions: Allergies Penicillins Allergy (Verified 08/06/16 13:57) RASH Home Medications: Home Meds Medication Instructions Recorded Confirmed No Known Home Med 08/06/16 08/06/16 Review of Systems - Physician Review All systems were reviewed & negative as marked: Yes - Review of Systems Constitutional: Normal Respiratory: Normal Cardiovascular: Normal Gastrointestinal: Abdominal Pain. absent: Constipation, Diarrhea, Nausea, Vomiting Neurological: absent: Headache, Dizziness Physical Exam Vital Signs Temp Pulse Resp BP Pulse Ox 08/06/16 15:02 79 18 118/71 99 08/06/16 14:02 98.2 F 86 18 116/76 99 Temperature: Afebrile Blood Pressure: Normal Pulse: Regular Respiratory Rate: Normal Appearance: Positive for: Well-Appearing, Non-Toxic, Comfortable, Unkept, Other (foul-smelling and unkempt) Pain Distress: None Mental Status: Positive for: Alert and Oriented X 3 - Systems Exam Head: Present: Atraumatic, Normocephalic Pupils: Present: PERRL Extroacular Muscles: Present: EOMI Conjunctiva: Present: Normal Mouth: Present: Moist Mucous Membranes Pharnyx: No: ERYTHEMA, EXUDATE, TONSILS ENLARGED Respiratory/Chest: Present: Clear to Auscultation, Good Air Exchange. No: Respiratory Distress, Accessory Muscle Use Cardiovascular: Present: Regular Rate and Rhythm, Normal S1, S2. No: Murmurs Abdomen: Present: Normal Bowel Sounds. No: Tenderness, Distention, Peritoneal Signs, Rebound, Guarding Upper Extremity: Present: Normal Inspection. No: Cyanosis, Edema Lower Extremity: Present: Normal Inspection. No: Edema Neurological: Present: GCS=15, CN II-XII Intact, Speech Normal, Motor Func Grossly Intact, Gait Normal Skin: Present: Warm, Dry, Normal Color. No: Rashes Psychiatric: Present: Alert, Oriented x 3, Normal Insight, Normal Concentration Medical Decision Making ED Course and Treatment: 08/06/16 15:22 EKG shows normal sinus rhythm rate approximately 90 with poor R-wave progression and no acute ST or T-wave changes - Lab Interpretations Lab Results: 08/06/16 15:20 08/06/16 15:20 Lab Results 08/06/16 15:20: Alcohol, Quantitative 218 H 08/06/16 15:20: Sodium 133, Potassium 3.9, Chloride 91 L, Carbon Dioxide 28, Anion Gap 18, BUN 7, Creatinine 0.8, Est GFR ( Amer) > 60, Est GFR (Non- Af Amer) > 60, Random Glucose 109, Calcium 8.6, Total Bilirubin 0.7, AST 45, ALT 29, Alkaline Phosphatase 121, Lactate Dehydrogenase 405, Total Creatine Kinase 34 L, Troponin I Pending, Total Protein 7.8, Albumin 3.7, Globulin 4.1, Albumin/Globulin Ratio 0.9 L, Amylase 138 H, Lipase 291 08/06/16 15:20: Urine Color Yellow, Urine Appearance Clear, Urine pH 6.0, Ur Specific [place] 1.010, Urine Protein Negative, Urine Glucose (UA) Negative, Urine Ketones Negative, Urine Blood Negative, Urine Nitrate Negative, Urine Bilirubin Negative, Urine Urobilinogen 0.2, Ur Leukocyte Esterase Negative 08/06/16 15:20: WBC 10.1 D, RBC 4.68, Hgb 11.6 L, Hct 35.6 L, MCV 76.1 L, MCH 24.8 L, MCHC 32.6, RDW 18.2 H, Plt Count 357, MPV 8.6, Gran % 73.5 H, Lymph % ( Auto) 17.7 L, [place] % (Auto) 8.4 H, Eos % (Auto) 0.3 L, Baso % (Auto) 0.1, Gran # 7.44 H, Lymph # 1.8, [place] # 0.9 H, Eos # 0.0, Baso # 0.01 - RAD Interpretation Radiology Orders: 08/06/16 14:04 CHEST PORTABLE [RAD] Stat Chest 1 view shows no infiltrate or effusion or cardiomegaly Recycling Specialist: ED Physician Disposition/Present on Arrival - Present on Arrival Any Indicators Present on Arrival: No History of DVT/PE: No History of Uncontrolled Diabetes: No Urinary Catheter: No History of Decub. Ulcer: No History Surgical Site Infection Following: None - Disposition Have Diagnosis and Disposition been Completed?: Yes Diagnosis: Alcohol abuse, Alcohol intoxication, Abdominal pain Disposition: HOME/ ROUTINE Disposition Time: 16:03 Patient Plan: Discharge Condition: FAIR Discharge Instructions (ExitCare): Abuse of Alcohol (ED), Acute Abdominal Pain (ED)
--- NOTE | 2016-08-06 15:00 | RAD ---
HISTORY: ap COMPARISON: 07/29/2016 FINDINGS: LUNGS: No active pulmonary disease. PLEURA: No significant pleural effusion identified, no pneumothorax apparent. CARDIOVASCULAR: Normal. OSSEOUS STRUCTURES: No significant abnormalities. VISUALIZED UPPER ABDOMEN: Normal. OTHER FINDINGS: None. IMPRESSION: No active disease.
[2016-08-06 15:30] LABS: ADD MANUAL DIFF? NO
[2016-08-06 15:46] LABS: BASO # 0.01 K/mm3 (0.0-2.0); BASO % 0.1 % (0.0-3.0); EOS % 0.3 % (1.5-5.0); GRAN # 7.44 (1.4-6.5); GRAN % 73.5 % (50.0-68.0); HEMATOCRIT 35.6 % (42.0-52.0); LYMPH # 1.8 (1.2-3.4); LYMPH % 17.7 % (22.0-35.0); MEAN CELL VOLUME 76.1 fL (80.0-105.0); MEAN CORPUSCULAR HEMOGLOBIN 24.8 pg (25.0-35.0); MEAN CORPUSCULAR HGB CONC 32.6 g/dl (31.0-37.0); MEAN PLATELET VOLUME 8.6 fl (7.0-11.0); MONO # 0.9 (0.1-0.6); MONO % 8.4 % (1.0-6.0); PLATELET COUNT 357 10^3/uL (120.0-450.0); RED CELL DISTRIBUTION WIDTH 18.2 % (11.5-14.5); URINE BILIRUBIN NEGATIVE (NEGATIVE); URINE BLOOD NEGATIVE (NEGATIVE); URINE GLUCOSE (UA) NEGATIVE (NEGATIVE); URINE KETONE NEGATIVE (NEGATIVE); URINE LEUKOCYTE ESTERASE NEGATIVE Leu/uL (NEGATIVE); URINE PROTEIN NEGATIVE mg/dL (<30 mg/dL); URINE UROBILINOGEN 0.2 E.U./dL (<1 E.U./dL); WHITE BLOOD COUNT 10.1 10^3/ul (4.5-11.0)
[2016-08-06 15:50] LABS: URINE APPEARANCE CLEAR (CLEAR); URINE COLOR YELLOW (YELLOW)
[2016-08-06 15:58] LABS: ALB/GLOB RATIO 0.9 (1.1-1.8); ALKALINE PHOSPHATASE 121 U/L (38-133); ALT/SGPT 29 U/L (7-56); AMYLASE 138 U/L (35-125); AST/SGOT 45 U/L (15-59); BILIRUBIN,TOTAL 0.7 mg/dL (0.2-1.3); BLOOD UREA NITROGEN 7 mg/dL (7-21); CALCIUM 8.6 mg/dL (8.4-10.5); CARBON DIOXIDE 28 mmol/L (21-33); CHLORIDE 91 mmol/L (98-107); GFR AFRICAN-AMERICAN > 60; GLUCOSE,RANDOM 109 mg/dL (70-110); LIPASE 291 U/L (23-300); POTASSIUM 3.9 mmol/L (3.6-5.0); SODIUM 133 mmol/L (132-148); TOTAL PROTEIN 7.8 g/dL (5.8-8.3)
[2016-08-06 15:59] LABS: INR 1.24 (0.93-1.08); PARTIAL THROMBOPLASTIN TIME 32.1 Seconds (23.7-30.8)
[2016-08-06 16:17] LABS: TROPONIN I < 0.01 ng/mL
[2016-08-06 16:21] VITALS: BP 142/67; PULSE 85; RESP 14; O2SAT 95
--- NOTE | 2016-08-06 22:22 | CARD ---
APPROVED REPORT EKG Measurement Heart [id number] <Conclusion> Normal sinus rhythm Low voltage QRS Possible Inferior infarct, age undetermined Abnormal ECG
== END 2016-08-06 16:37 | disposition home or self-care (01) ==
LOC: ED 13:52
DX: R10.9 Unspecified abdominal pain (principal); F10.129 Alcohol abuse with intoxication, unspecified; F10.10 Alcohol abuse, uncomplicated; Y90.7 Blood alcohol level of 200-239 mg/100 ml
CPT/HCPCS: 71010; 80053; 81003; 82150; 82550; 83615; 83690; 84484; 85025; 85610; 85730; 93005; 99284; G0480

== ENCOUNTER 2016-08-07 13:38 | Inpatient (IN) | payer MEDICAID, OTHER ==
[2016-08-07 14:35] VITALS: BMI 27.4
[2016-08-07] MEDS ORDERED: Multivitamin (MVI) 10 ML, Thiamine 100 MG, Folic Acid 1 MG in Dextrose 5% In Water 1,00... IV ONE (14:47)
--- NOTE | 2016-08-07 14:54 | ED PDOC ---
Arrival/HPI - General Chief Complaint: Alcohol Ingestion Time Seen by Provider: 08/07/16 14:42 - History of Present Illness Narrative History of Present Illness (Text): 55 y/o M BIBEMS for alcohol intoxication. Patient states that starting 8 hours ago, he began having pain that he states is the same as his typical pancreatitis pain. He states he drank alcohol. He denies fever, chills, dyspnea , vomiting, diarrhea. Past Medical History - Past History Past History: No Previous - Infectious Disease Hx of Infectious Diseases: None - Tetanus Immunization Tetanus Immunization: Unknown - Cardiac Hx Cardiac Disorders: Yes Hx Hypertension: Yes - Pulmonary Hx Respiratory Disorders: Yes Hx Chronic Obstructive Pulmonary Disease (COPD): Yes - Neurological Hx Neurological Disorder: No HX Cerebrovascular Accident: No - HEENT Hx HEENT Disorder: No - Renal Hx Renal Disorder: No - Endocrine/Metabolic Hx Endocrine Disorders: Yes Hx Diabetes Mellitus Type 2: Yes - Hematological/Oncological Hx Blood Disorders: Yes Hx Cancer: Yes - Integumentary Hx Dermatological Disorder: No - Musculoskeletal/Rheumatological Hx Musculoskeletal Disorders: Yes Hx Falls: Yes - Gastrointestinal Hx Gastrointestinal Disorders: Yes Hx Gastroesophageal Reflux: Yes - Genitourinary/Gynecological Hx Genitourinary Disorders: No - Psychiatric Hx Psychophysiologic Disorder: Yes (ETOH) Hx Anxiety: Yes Hx Depression: Yes Hx Substance Use: No Other/Comment: Alcohol Abuse - Surgical History Hx Cardiac Catheterization: No Hx Coronary Stent: No Hx Musculoskeletal Surgery: Yes - Anesthesia Hx Anesthesia: Yes Hx Anesthesia Reactions: No Hx Malignant Hyperthermia: No - Suicidal Assessment Feels Threatened In Home Enviroment: No Family/Social History Family/Social History: No Known Family HX Smoking Status: Former Smoker Hx Alcohol Use: Yes Frequency of alcohol use: Daily Amount per day: 10 Hx Substance Use: No Hx Substance Use Treatment: No Allergies/Home Meds Allergies/Adverse Reactions: Allergies Penicillins Allergy (Verified 08/06/16 13:57) RASH Home Medications: Home Meds Medication Instructions Recorded Confirmed No Known Home Med 08/06/16 08/07/16 Review of Systems - Physician Review All systems were reviewed & negative as marked: Yes - Review of Systems Constitutional: absent: Fevers Respiratory: absent: SOB Physical Exam - Physical Exam Narrative Physical Exam (Text): 08/07/16 14:54 Constitutional: No acute distress. Head: Normocephalic. Atraumatic. Eyes: PERRL. ENT: Moist mucous membranes. Neck: Supple. Cardiovascular: Regular rate. Chest: No tenderness. Respiratory: Clear to auscultation bilaterally. GI: Soft. Nontender. Nondistended. Back: No CVA tenderness. Musculoskeletal: No tenderness or swelling of extremities. Skin: No rash. Neurologic: Alert, no focal deficit. Vital Signs Temp Pulse Resp BP Pulse Ox 08/07/16 14:21 97.9 F 102 H 16 127/91 H 95 Medical Decision Making ED Course and Treatment: Will hydrate patient, check labs, and if unremarkable, discharge patient home. He is well known to ER with many visits for alcohol intoxication. - Lab Interpretations Lab Results: 08/07/16 15:56 08/07/16 15:56 Lab Results 08/07/16 15:56: Alcohol, Quantitative 254 H 08/07/16 15:56: Sodium 139, Potassium 3.7, Chloride 98, Carbon Dioxide 26, Anion Gap 19, BUN 7, Creatinine 0.8, Est GFR ( Amer) > 60, Est GFR (Non- Af Amer) > 60, Random Glucose 109, Calcium 8.5, Total Bilirubin 0.7, AST 40, ALT 26, Alkaline Phosphatase 123, Lactate Dehydrogenase 391, Total Protein 7.6, Albumin 3.6, Globulin 4.1, Albumin/Globulin Ratio 0.9 L, Lipase 301 H 08/07/16 15:56: WBC 9.9, RBC 4.80, Hgb 11.9 L, Hct 36.1 L, MCV 75.2 L, MCH 24.8 L, MCHC 33.0, RDW 17.9 H, Plt Count 319, MPV 8.5, Gran % 80.4 H, Lymph % (Auto) 13.4 L, [place] % (Auto) 6.0, Eos % (Auto) 0.1 L, Baso % (Auto) 0.1, Gran # 7.97 H , Lymph # 1.3, [place] # 0.6, Eos # 0.0, Baso # 0.01 - Medication Orders Current Medication Orders: Pantoprazole Sodium (Protonix 40mg Ivpb) 40 mg in 100 mls @ 20 mls/hr IVPB .Q5H SOPHIA Octreotide Acetate 1,250 mcg/ (Sodium Chloride) 252.5 mls @ 5.05 mls/hr IV .Q24H SOPHIA; 25 MCG/HR PRN Reason: Protocol Discontinued Medications Multivitamins/Vitamin C 10 ml/Thiamine HCl 100 mg/ Folic Acid 1 mg/ Dextrose 1, 011.2 mls @ 1,000 mls/hr IV .Q1H1M ONE Stop: 08/07/16 15:47 Last Admin: 08/07/16 16:14 Dose: 1,000 mls/hr Lorazepam (Ativan) 1 mg IVP ONCE ONE PRN Reason: Protocol Stop: 08/07/16 14:48 Last Admin: 08/07/16 16:49 Dose: 1 mg Octreotide Acetate (Sandostatin) 50 mcg IVP STAT STA Stop: 08/07/16 18:01 Ondansetron HCl (Zofran Inj) 4 mg IVP STAT STA Stop: 08/07/16 14:48 Last Admin: 08/07/16 16:12 Dose: 4 mg Pantoprazole Sodium (Protonix Inj) 80 mg IVP STAT STA Stop: 08/07/16 17:07 Last Admin: 08/07/16 17:30 Dose: 80 mg ED OBSERVATION Date of observation admission: 08/07/16 Time of observation admission: 16:40 - Observation admission statement Patient is being placed in observation because:: alcohol intoxication - Goals of Observation Goals of observation are:: sobriety - Progress Note Progress Note: 1640 Alcohol level 250+. Will observe for sobriety. 1700 Lipase mildly elevated, no change from baseline. [place] criteria 1/5, low severity with low predicted mortality. Will observe for sobriety. 1705 Patient began vomiting up blood. Will administer protonix and admit for GI bleed. 08/07/16 17:26 EKG Sinus rhythm, 113 bpm, no ST elevations. CXR no acute disease. No air under the diaphragm. 08/07/16 18:03 Accepted by hospitalist service. Octreotide administered and protonix and octreotide drips initiated. Will not administer ceftriaxone due to pen allergy. Disposition/Present on Arrival - Present on Arrival Any Indicators Present on Arrival: No History of DVT/PE: No History of Uncontrolled Diabetes: No Urinary Catheter: No History of Decub. Ulcer: No History Surgical Site Infection Following: None - Disposition Have Diagnosis and Disposition been Completed?: Yes Diagnosis: Alcohol intoxication, GI bleed Disposition: HOSPITALIZED Disposition Time: 18:00 Patient Plan: Admission, Telemetry Patient Problems: Current Active Problems Problem Status Onset Alcohol intoxication Acute Condition: GUARDED
[2016-08-07 16:04] LABS: ADD MANUAL DIFF? NO
[2016-08-07 16:28] LABS: BASO # 0.01 K/mm3 (0.0-2.0); BASO % 0.1 % (0.0-3.0); EOS % 0.1 % (1.5-5.0); GRAN # 7.97 (1.4-6.5); GRAN % 80.4 % (50.0-68.0); HEMATOCRIT 36.1 % (42.0-52.0); LYMPH # 1.3 (1.2-3.4); LYMPH % 13.4 % (22.0-35.0); MEAN CELL VOLUME 75.2 fL (80.0-105.0); MEAN CORPUSCULAR HEMOGLOBIN 24.8 pg (25.0-35.0); MEAN PLATELET VOLUME 8.5 fl (7.0-11.0); MONO # 0.6 (0.1-0.6); PLATELET COUNT 319 10^3/uL (120.0-450.0); RED CELL DISTRIBUTION WIDTH 17.9 % (11.5-14.5); WHITE BLOOD COUNT 9.9 10^3/ul (4.5-11.0)
[2016-08-07 16:42] LABS: ALB/GLOB RATIO 0.9 (1.1-1.8); ALKALINE PHOSPHATASE 123 U/L (38-133); ALT/SGPT 26 U/L (7-56); AST/SGOT 40 U/L (15-59); BILIRUBIN,TOTAL 0.7 mg/dL (0.2-1.3); BLOOD UREA NITROGEN 7 mg/dL (7-21); CALCIUM 8.5 mg/dL (8.4-10.5); CARBON DIOXIDE 26 mmol/L (21-33); CHLORIDE 98 mmol/L (98-107); GFR AFRICAN-AMERICAN > 60; GLUCOSE,RANDOM 109 mg/dL (70-110); LIPASE 301 U/L (23-300); POTASSIUM 3.7 mmol/L (3.6-5.0); SODIUM 139 mmol/L (132-148); TOTAL PROTEIN 7.6 g/dL (5.8-8.3)
--- NOTE | 2016-08-07 17:55 | RAD ---
HISTORY: gi bleed COMPARISON: Chest x-ray performed 08/06/16 TECHNIQUE: Chest, one view. FINDINGS: LUNGS: No focal consolidation. Please note that chest x-ray has limited sensitivity for the detection of pulmonary masses. PLEURA: No significant pleural effusion identified. No definite pneumothorax . CARDIOVASCULAR: Heart size appears within normal limits. OSSEOUS STRUCTURES: Degenerative changes. VISUALIZED UPPER ABDOMEN: Unremarkable. OTHER FINDINGS: None. IMPRESSION: No focal consolidation, significant pleural effusion, or definite pneumothorax identified.
[2016-08-07 18:51] LABS: INR 1.19 (0.93-1.08); PARTIAL THROMBOPLASTIN TIME 30.7 Seconds (23.7-30.8)
[2016-08-07] MEDS: Pantoprazole 40mg/100ml IVPB 40 MG/100 ML BAG IVPB SCH ×2 (19:00→23:38)
--- NOTE | 2016-08-07 19:47 | CP.PCM.HP ---
<MatthewJoel - Last Filed: 08/07/16 19:50> History of Present Illness - History of Present Illness History of Present Illness: 55 y/o M with PMH chronic alcoholism, chronic pancreatitis, erosive esophagitis , gastritis, and COPD presents to the ED for nausea and vomiting for the past day. Pt states he throws up frequently due to his chronic alcoholism but it has gotten worse over the last 2 days. Pt states the vomit is usually dark in color and the amount of blood thrown up has increased over this time. In the ED pt had 2 episodes of hematemesis with a large amount of dark colored substance coming out. Pt denies taking any medications at home, specifically NSAIDs. Pt also mentions his last drink was this morning. He states he is drinking his normal amount per day, which is several beers. Pt does admit to having multiple episodes of loose bowel movements, which he commonly has. Stools are normal colored, with no melena or annita blood. He also admits to having epigastric and lower abdominal pain. Pain is nonradiating. Pt does also admit to CP and SOB. Denies headaches, syncopal episodes, dysuria, palpitations. PMH: Chronic alcoholism, anemia, chronic pancreatitis, erosive esophagitis, gastritis, COPD Surgical Hx: R incarcerated inguinal hernia repair and R orchiectomy SH: Daily alcohol use- drinks 6 24oz beers per day. Former heavy smoker- now smokes 1 cigg per day. Denies drug use. FH: Father: Rectal cancer, Mother: Ovarian cancer Meds: None All: penicillin Present on Admission - Present on Admission Any Indicators Present on Admission: No Review of Systems - Constitutional Constitutional: Fatigue. absent: Chills, Fever - EENT Eyes: absent: Blurred Vision, Change in Vision Nose/Mouth/Throat: absent: Nasal Congestion, Nasal Discharge - Cardiovascular Cardiovascular: Chest Pain. absent: Irregular Heart Rhythm, Palpitations - Respiratory Respiratory: Dyspnea. absent: Cough - Gastrointestinal Gastrointestinal: Abdominal Pain, Hematemesis. absent: Diarrhea - Genitourinary Genitourinary: absent: Dysuria, Hematuria - Integumentary Integumentary: absent: New Lesions, Rash - Neurological Neurological: absent: Dizziness, Numbness, Syncope - Hematologic/Lymphatic Hematologic: absent: Easy Bleeding, Easy Bruising Past Patient History - Infectious Disease Hx of Infectious Diseases: None - Tetanus Immunizations Tetanus Immunization: Unknown - Past Medical History & Family History Past Medical History?: Yes - Past Social History Smoking Status: Former Smoker - CARDIAC Hx Cardiac Disorders: Yes Hx Hypertension: Yes - PULMONARY Hx Respiratory Disorders: Yes Hx Chronic Obstructive Pulmonary Disease (COPD): Yes - NEUROLOGICAL Hx Neurological Disorder: No HX Cerebrovascular Accident: No - HEENT Hx HEENT Problems: No - RENAL Hx Chronic Kidney Disease: No - ENDOCRINE/METABOLIC Hx Endocrine Disorders: Yes Hx Diabetes Mellitus Type 2: Yes - HEMATOLOGICAL/ONCOLOGICAL Hx Blood Disorders: Yes Hx Cancer: Yes - INTEGUMENTARY Hx Dermatological Problems: No - MUSCULOSKELETAL/RHEUMATOLOGICAL Hx Musculoskeletal Disorders: Yes Hx Falls: Yes - GASTROINTESTINAL Hx Gastrointestinal Disorders: Yes Hx Gastroesophageal Reflux: Yes - GENITOURINARY/GYNECOLOGICAL Hx Genitourinary Disorders: No - PSYCHIATRIC Hx Psychophysiologic Disorder: Yes (ETOH) Hx Anxiety: Yes Hx Depression: Yes Hx Substance Use: No Other/Comment: Alcohol Abuse - SURGICAL HISTORY Hx Cardiac Catheterization: No Hx Coronary Stent: No Hx Musculoskeletal Surgery: Yes - ANESTHESIA Hx Anesthesia: Yes Hx Anesthesia Reactions: No Hx Malignant Hyperthermia: No Meds Allergies/Adverse Reactions: Allergies Allergy/AdvReac Type Severity Reaction Status Date / Time Penicillins Allergy RASH Verified 08/06/16 13:57 Physical Exam - Constitutional Appears: Non-toxic, No Acute Distress - Head Exam Head Exam: ATRAUMATIC, NORMAL INSPECTION, NORMOCEPHALIC - Eye Exam Eye Exam: EOMI, Normal appearance - ENT Exam ENT Exam: Mucous Membranes Dry - Neck Exam Neck exam: Positive for: Normal Inspection. Negative for: Lymphadenopathy - Respiratory Exam Respiratory Exam: Clear to Auscultation Bilateral, NORMAL BREATHING PATTERN. absent: Rales, Rhonchi, Wheezes - Cardiovascular Exam Cardiovascular Exam: RRR, +S1, +S2 - GI/Abdominal Exam GI & Abdominal Exam: Diminished Bowel Sounds, Soft, Tenderness (Epigastic tenderness. Lower abdominal tenderness in RLQ and LLQ). absent: Firm, Guarding - Extremities Exam Extremities exam: Positive for: normal inspection. Negative for: calf tenderness, pedal edema - Neurological Exam Neurological exam: Alert, CN II-XII Intact, Oriented x3 - Psychiatric Exam Psychiatric exam: Normal Affect, Normal Mood - Skin Skin Exam: Intact, Normal Color, Warm Results - Vital Signs Recent Vital Signs: Last Vital Signs Temp 97.9 F 08/07/16 14:21 Pulse 102 H 08/07/16 19:01 Resp 18 08/07/16 19:01 BP 120/90 08/07/16 19:01 Pulse Ox 90 L 08/07/16 19:01 - Labs Result Diagrams: 08/07/16 15:56 08/07/16 15:56 Labs: Laboratory Results - last 24 hr 08/07/16 08/07/16 18:29 18:53 PT 12.8 H INR 1.19 H APTT 30.7 BBK History Checked Patient has bt Assessment & Plan - Assessment and Plan (Free Text) Plan: 55 y/o M with PMH of chronic alcoholism, chronic pancreatitis, erosive esophagitis, gastritis, COPD and anemia presents with hematemesis and alcohol intoxication. Pt with hx of erosive esophagitis and gastritis, likely exacerbated due to chronic alcohol abuse. GI will be consulted. Pt will also be placed on medications for alcohol withdrawal. Will monitor closely for acute drops in hg. 1. Hematemesis Hg 11.9, at baseline Continue Protonix and Ocreotide drips Recheck CBC in AM NPO GI consulted, Dr. Whitaker 2. Alcohol intoxication Alcohol level >250 CIWA protocol Aspiration and seizure precautions Banana Bag Zofran Librium 25 q8h Ativan 1 mg q4h 3. Chest pain Likely secondary to increased vomiting Trending trops Monitor closely 4. Hx of chronic pancreatitis Lipase mildly elevated above normal Banana bag 5. Hx of COPD Duonebs prn Nasal cannula as needed 6. PPX SCDs Protonix drip Zofran Seen, reviewed, and discussed with attending Matthew, PGY-1 <Franc Whitney - Last Filed: 08/08/16 19:48> Results - Vital Signs Recent Vital Signs: Last Vital Signs Temp 98.6 F 08/07/16 23:52 Pulse 89 08/07/16 23:52 Resp 20 08/07/16 23:52 BP 119/74 08/07/16 23:52 Pulse Ox 97 08/07/16 23:52 - Labs Result Diagrams: 08/07/16 15:56 08/07/16 15:56 Labs: Laboratory Results - last 24 hr 08/07/16 08/07/16 18:53 21:48 POC Glucose (mg/dL) 151 H Blood Type O POSITIVE Antibody Screen Negative Attending/Attestation - Attestation I have personally seen and examined this patient.: Yes I have fully participated in the care of the patient.: Yes I have reviewed all pertinent clinical information: Yes Notes (Text): 08/08/16 19:47 Patient was seen with faculty i on call medical assistant when he was in the ER. Agree with history,physical examination ,assessment and plan.
[2016-08-07] MEDS ORDERED: Albuterol-Ipratrop 3 mg / 0.5 (3 ml) UD IH PRN (20:14)
[2016-08-07] MEDS: Folic Acid 1 MG, Thiamine 100 MG, Multivitamin (MVI) 10 ML in Dextrose 5% In Water 1,00... IV SCH (21:34)
--- NOTE | 2016-08-07 22:16 | CARD ---
APPROVED REPORT EKG Measurement Heart [id number] <Conclusion> Sinus tachycardia Anterior infarct, age undetermined Abnormal ECG
[2016-08-08] MEDS: Pantoprazole 40mg/100ml IVPB 40 MG/100 ML BAG IVPB SCH (20:24)
[2016-08-09 06:53] LABS: HEMATOCRIT 35.1 % (42.0-52.0); MEAN CELL VOLUME 76.5 fL (80.0-105.0); MEAN CORPUSCULAR HEMOGLOBIN 24.4 pg (25.0-35.0); MEAN CORPUSCULAR HGB CONC 31.9 g/dl (31.0-37.0); MEAN PLATELET VOLUME 8.6 fl (7.0-11.0); RED CELL DISTRIBUTION WIDTH 17.5 % (11.5-14.5); WHITE BLOOD COUNT 8.2 10^3/ul (4.5-11.0)
[2016-08-09 07:13] LABS: ALB/GLOB RATIO 0.8 (1.1-1.8); ALKALINE PHOSPHATASE 105 U/L (38-133); ALT/SGPT 23 U/L (7-56); AST/SGOT 30 U/L (15-59); BLOOD UREA NITROGEN 7 mg/dL (7-21); CALCIUM 8.5 mg/dL (8.4-10.5); CARBON DIOXIDE 31 mmol/L (21-33); CHLORIDE 95 mmol/L (98-107); GFR AFRICAN-AMERICAN > 60; GLUCOSE,RANDOM 120 mg/dL (70-110); POTASSIUM 3.4 mmol/L (3.6-5.0); SODIUM 134 mmol/L (132-148); TOTAL PROTEIN 6.8 g/dL (5.8-8.3)
--- NOTE | 2016-08-09 07:45 | CP.PCM.PN ---
<Amol Singh - Last Filed: 08/09/16 10:22> Subjective - Date & Time of Evaluation Date of Evaluation: 08/09/16 Time of Evaluation: 07:10 - Subjective Subjective: PGY4 GI Fellow Progress Note Please see hand written consult note on patient's chart due to [employer] downtime. Patient seen and examined bedside this morning. The patient complains of hiccups and some mild nausea with liquid diet. No more vomiting per patient. Denies any hematochezia or melena. No abdominal pain. 12 system ROS performed and negative except where stated. Objective - Vital Signs/Intake and Output Vital Signs (last 24 hours): Temp Pulse Resp BP Pulse Ox 98.4 F 79 20 119/70 98 08/09/16 06:00 08/09/16 06:00 08/09/16 06:00 08/09/16 06:00 08/09/16 06:00 Intake and Output: 08/09/16 08/09/16 06:59 18:59 Intake Total 720 Output Total 2500 Balance -1780 - Medications Medications: Current Medications Albuterol/Ipratropium (Duoneb 3 Mg/0.5 Mg (3 Ml) Ud) 3 ml IH Q2H PRN PRN Reason: Shortness of Breath Chlordiazepoxide (Librium) 25 mg PO Q8 [facility] PRN Reason: Protocol Last Admin: 08/09/16 05:46 Dose: 25 mg Pantoprazole Sodium (Protonix 40mg Ivpb) 40 mg in 100 mls @ 20 mls/hr IVPB .Q5H [facility] Last Admin: 08/08/16 20:24 Dose: 20 mls/hr Folic Acid 1 mg/ Thiamine HCl 100 mg/ Multivitamins/Vitamin C 10 ml/ Dextrose 1 ,011.2 mls @ 100 mls/hr IV .Q10H7M [facility] Last Admin: 08/07/16 21:34 Dose: 100 mls/hr Lorazepam (Ativan) 1 mg IVP Q4H PRN; Protocol PRN Reason: Anxiety Last Admin: 08/09/16 06:30 Dose: 1 mg Ondansetron HCl (Zofran Inj) 4 mg IVP Q4H PRN PRN Reason: Nausea/Vomiting Last Admin: 08/09/16 06:29 Dose: 4 mg - Labs Labs: 08/09/16 05:40 05/19/17 05:40 PT 12.8 Seconds (9.9-11.8) H 08/07/16 18:29 INR 1.19 (0.93-1.08) H 08/07/16 18:29 APTT 30.7 Seconds (23.7-30.8) 08/07/16 18:29 - Constitutional Appears: Non-toxic, No Acute Distress - Eye Exam Eye Exam: EOMI, PERRL - ENT Exam ENT Exam: Mucous Membranes Moist - Respiratory Exam Respiratory Exam: Clear to Ausculation Bilateral. absent: Rales, Rhonchi, Wheezes - Cardiovascular Exam Cardiovascular Exam: RRR, +S1, +S2 - GI/Abdominal Exam GI & Abdominal Exam: Soft, Normal Bowel Sounds. absent: Distended, Firm, Guarding, Rigid, Tenderness, Organomegaly - Extremities Exam Extremities Exam: Normal Inspection. absent: Pedal Edema - Neurological Exam Neurological Exam: Alert, Awake, Oriented x3 - Psychiatric Exam Psychiatric exam: Anxious - Skin Skin Exam: Dry, Warm Assessment and Plan - Assessment and Plan (Free Text) Assessment: 55yo male with extensive EtOH abuse, esophagitis and esophageal ulcers, DM who presented to the ED with hematemesis and intractable nausea/vomiting -Hematemesis -Hiccups -H/O LA Class D esophagitis -H/O esophageal ulceration -EtOH abuse and dependence -DM Plan: -Continue protonix gtt for another 24H -Clear liquid diet, advacne as tolerated -One dose reglan now for hiccups -Zofran PRN nausea -EtOH withdrawal protocol -Will sign off. Thank you for allowing us to participate in the care of your patient. <Amish Moya - Last Filed: 08/09/16 11:09> Objective - Vital Signs/Intake and Output Vital Signs (last 24 hours): Temp Pulse Resp BP Pulse Ox 98.4 F 79 20 119/70 98 08/09/16 06:00 08/09/16 06:00 08/09/16 06:00 08/09/16 06:00 08/09/16 06:00 Intake and Output: 08/09/16 08/09/16 06:59 18:59 Intake Total 720 Output Total 2500 Balance -1780 - Medications Medications: Current Medications Albuterol/Ipratropium (Duoneb 3 Mg/0.5 Mg (3 Ml) Ud) 3 ml IH Q2H PRN PRN Reason: Shortness of Breath Chlordiazepoxide (Librium) 25 mg PO Q8 [facility] PRN Reason: Protocol Last Admin: 08/09/16 05:46 Dose: 25 mg Folic Acid 1 mg/ Thiamine HCl 100 mg/ Multivitamins/Vitamin C 10 ml/ Dextrose 1 ,011.2 mls @ 100 mls/hr IV .Q10H7M [facility] Last Admin: 08/07/16 21:34 Dose: 100 mls/hr Lorazepam (Ativan) 1 mg IVP Q4H PRN; Protocol PRN Reason: Anxiety Last Admin: 08/09/16 06:30 Dose: 1 mg Ondansetron HCl (Zofran Inj) 4 mg IVP Q4H PRN PRN Reason: Nausea/Vomiting Last Admin: 08/09/16 10:39 Dose: 4 mg Pantoprazole Sodium (Protonix Ec Tab) 40 mg PO 0630 [facility] - Labs Labs: 08/09/16 05:40 08/09/16 05:40 PT 12.8 Seconds (9.9-11.8) H 08/07/16 18:29 INR 1.19 (0.93-1.08) H 08/07/16 18:29 APTT 30.7 Seconds (23.7-30.8) 08/07/16 18:29 Attending/Attestation - Attestation I have personally seen and examined this patient.: Yes I have fully participated in the care of the patient.: Yes I have reviewed all pertinent clinical information, including history, physical exam and plan: Yes Notes (Text): 08/09/16 11:07 I have seen and examined patient with GI fellow. He is seen resting in bed comfortably, complains mainly of nausea. No recurrent vomiting since arrival to hospital. He denies abdominal pain, diarrhea, fever/chills. Tolerating PO liquids without difficulty. Review of vitals from today are normal. Hematemesis - resolved Nausea in setting of ongoing ETOH abuse DM - Full liquid diet as tolerated - H/H stable, continue to monitor, no overt bleeding noted while in hospital - ETOH withdrawal management as per medical team - Continue with PPI therapy - Anti-emetic therapy PRN - No ongoing GI issues, recommend outpatient GI follow up and ETOH cessation counseling. Will sign off case, please reconsult as necessary, thank you.
--- NOTE | 2016-08-09 13:10 | CP.PCM.PN ---
<Breana Padilla - Last Filed: 08/09/16 13:30> Subjective - Date & Time of Evaluation Date of Evaluation: 08/09/16 Time of Evaluation: 10:00 - Subjective Subjective: PGY-1 Medicine progress note Patient seen and examined at bedside. No acute distress. Nurse reports no events overnight, patient slept most of the night. Patient reports cough with some chest discomfort. He also states that he is having mild lower right quadrant tenderness. Denies vomit but continues to have nausea. Tolerating liquid diet. Objective - Vital Signs/Intake and Output Vital Signs (last 24 hours): Temp Pulse Resp BP Pulse Ox 98.3 F 81 20 118/77 98 08/09/16 12:00 08/09/16 12:00 08/09/16 12:00 08/09/16 12:00 08/09/16 06:00 Intake and Output: 08/09/16 08/09/16 06:59 18:59 Intake Total 720 Output Total 2500 Balance -1780 - Medications Medications: Current Medications Albuterol/Ipratropium (Duoneb 3 Mg/0.5 Mg (3 Ml) Ud) 3 ml IH Q2H PRN PRN Reason: Shortness of Breath Chlordiazepoxide (Librium) 25 mg PO Q8 [facility] PRN Reason: Protocol Last Admin: 08/09/16 05:46 Dose: 25 mg Folic Acid 1 mg/ Thiamine HCl 100 mg/ Multivitamins/Vitamin C 10 ml/ Dextrose 1 ,011.2 mls @ 100 mls/hr IV .Q10H7M [facility] Last Admin: 08/07/16 21:34 Dose: 100 mls/hr Lorazepam (Ativan) 1 mg IVP Q4H PRN; Protocol PRN Reason: Anxiety Last Admin: 08/09/16 06:30 Dose: 1 mg Ondansetron HCl (Zofran Inj) 4 mg IVP Q4H PRN PRN Reason: Nausea/Vomiting Last Admin: 08/09/16 10:39 Dose: 4 mg Pantoprazole Sodium (Protonix Ec Tab) 40 mg PO 0630 [facility] - Labs Labs: 08/09/16 05:40 08/09/16 05:40 PT 12.8 Seconds (9.9-11.8) H 08/07/16 18:29 INR 1.19 (0.93-1.08) H 08/07/16 18:29 APTT 30.7 Seconds (23.7-30.8) 08/07/16 18:29 - Constitutional Appears: Well, No Acute Distress - Head Exam Head Exam: ATRAUMATIC, NORMOCEPHALIC - Eye Exam Eye Exam: Normal appearance - ENT Exam ENT Exam: Mucous Membranes Moist - Respiratory Exam Respiratory Exam: Clear to Ausculation Bilateral, NORMAL BREATHING PATTERN. absent: Rales, Rhonchi, Wheezes, Respiratory Distress - Cardiovascular Exam Cardiovascular Exam: REGULAR RHYTHM. absent: Murmur - GI/Abdominal Exam GI & Abdominal Exam: Soft, Tenderness (mild lower abd), Normal Bowel Sounds. absent: Distended, Firm - Extremities Exam Extremities Exam: Normal Inspection. absent: Pedal Edema - Neurological Exam Neurological Exam: Alert, Awake, Oriented x3 - Skin Skin Exam: Dry, Intact, Normal Color, Warm Assessment and Plan - Assessment and Plan (Free Text) Assessment: 55 y/o M with PMH of chronic alcoholism, chronic pancreatitis, erosive esophagitis, gastritis, COPD and anemia presents with hematemesis and alcohol intoxication. Pt has hx of erosive esophagitis and gastritis, likely exacerbated due to chronic alcohol abuse. Hgb stable at 11.2. Plan: 1. Hematemesis - no episodes during hospital stay - Hgb at baseline - stop Protonix and Ocreotide drips - start protonix PO - cont to monitor Hgb - advance diet as tolerated - GI recommened outpatint follow up 2. Alcohol intoxication - Alcohol level >250 on admission - cont [facility] protocol - Aspiration and seizure precautions - cont Banana Bag - Zofran prn - cont Librium 25 q8h - cont Ativan 1 mg q4h prn 3. Chest pain - associated with cough - trops negative x1 - EKG sinus tachy, no ST changes 4. Hx of chronic pancreatitis - Lipase mildly elevated above normal - cont to monitor 5. Hx of COPD - Duonebs prn - Nasal cannula as needed 6. PPX DVT- SCDs GI- Protonix <Alaina Goel - Last Filed: 08/09/16 14:04> Objective - Vital Signs/Intake and Output Vital Signs (last 24 hours): Temp Pulse Resp BP Pulse Ox 98.3 F 81 20 118/77 98 08/09/16 12:00 08/09/16 12:00 08/09/16 12:00 08/09/16 12:00 08/09/16 06:00 Intake and Output: 08/09/16 08/09/16 06:59 18:59 Intake Total 720 Output Total 2500 Balance -1780 - Medications Medications: Current Medications Albuterol/Ipratropium (Duoneb 3 Mg/0.5 Mg (3 Ml) Ud) 3 ml IH Q2H PRN PRN Reason: Shortness of Breath Chlordiazepoxide (Librium) 25 mg PO Q8 [facility] PRN Reason: Protocol Last Admin: 08/09/16 13:24 Dose: 25 mg Folic Acid 1 mg/ Thiamine HCl 100 mg/ Multivitamins/Vitamin C 10 ml/ Dextrose 1 ,011.2 mls @ 100 mls/hr IV .Q10H7M [facility] Last Admin: 08/09/16 13:25 Dose: 100 mls/hr Lorazepam (Ativan) 1 mg IVP Q4H PRN; Protocol PRN Reason: Anxiety Last Admin: 08/09/16 13:24 Dose: 1 mg Ondansetron HCl (Zofran Inj) 4 mg IVP Q4H PRN PRN Reason: Nausea/Vomiting Last Admin: 08/09/16 14:00 Dose: 4 mg Pantoprazole Sodium (Protonix Ec Tab) 40 mg PO 0630 [facility] - Labs Labs: 08/09/16 05:40 08/09/16 05:40 PT 12.8 Seconds (9.9-11.8) H 08/07/16 18:29 INR 1.19 (0.93-1.08) H 08/07/16 18:29 APTT 30.7 Seconds (23.7-30.8) 08/07/16 18:29 Attending/Attestation - Attestation I have personally seen and examined this patient.: Yes I have fully participated in the care of the patient.: Yes I have reviewed all pertinent clinical information, including history, physical exam and plan: Yes Notes (Text): 08/09/16 14:02 attending note; Patient seen and examined with resident. Patient is well known to our service due to chronic alcohol abuse. Currently admitted with alcohol abuse and hematemesis. Patient with a history of gastritis and esophageal ulcer. GI evaluation appreciated. Hemoglobin is stable. Complete alcohol cessation is recommended. Needs outpatient GI follow-up. alcohol Withdrawal symptoms; improved significantly. history of depression; patient is requesting psychiatric evaluation. Noncompliance with follow up. Upon discharge the patient will [place] [facility] [place]. 08/09/16 14:03
[2016-08-09] MEDS: Folic Acid 1 MG, Thiamine 100 MG, Multivitamin (MVI) 10 ML in Dextrose 5% In Water 1,00... IV SCH (13:25)
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
[2016-08-10] MEDS: Pantoprazole 40 mg EC Tab PO SCH (05:35)
[2016-08-10 07:55] LABS: HEMATOCRIT 37.4 % (42.0-52.0); MEAN CORPUSCULAR HEMOGLOBIN 24.5 pg (25.0-35.0); MEAN CORPUSCULAR HGB CONC 31.8 g/dl (31.0-37.0); MEAN PLATELET VOLUME 8.8 fl (7.0-11.0); RED CELL DISTRIBUTION WIDTH 17.4 % (11.5-14.5)
[2016-08-10 08:07] LABS: ALKALINE PHOSPHATASE 114 U/L (38-133); ALT/SGPT 26 U/L (7-56); AST/SGOT 30 U/L (15-59); BILIRUBIN,TOTAL 0.8 mg/dL (0.2-1.3); BLOOD UREA NITROGEN 9 mg/dL (7-21); CALCIUM 8.6 mg/dL (8.4-10.5); CARBON DIOXIDE 29 mmol/L (21-33); CHLORIDE 95 mmol/L (98-107); GFR AFRICAN-AMERICAN > 60; GLUCOSE,RANDOM 132 mg/dL (70-110); POTASSIUM 3.2 mmol/L (3.6-5.0); SODIUM 133 mmol/L (132-148); TOTAL PROTEIN 7.3 g/dL (5.8-8.3)
--- NOTE | 2016-08-10 18:00 | CP.PCM.PN ---
<Breana Padilla - Last Filed: 08/10/16 18:01> Subjective - Date & Time of Evaluation Date of Evaluation: 08/10/16 Time of Evaluation: 10:30 - Subjective Subjective: PGY-1 Medicine progress note Patient seen and examined at bedside. No acute distress. Nurse reports multiple episodes of diarrhea overnight, no vomiting. patient is anxious about being discharged home. Patient reports heartburn and persistent nausea, with possible vomiting. Tolerating diet. Objective - Vital Signs/Intake and Output Vital Signs (last 24 hours): Temp Pulse Resp BP Pulse Ox 98 F 71 20 118/85 100 08/10/16 17:07 08/10/16 17:07 08/10/16 17:07 08/10/16 17:07 08/10/16 17:07 Intake and Output: 08/10/16 08/10/16 06:59 18:59 Intake Total 1200 Balance 1200 - Medications Medications: Current Medications Albuterol/Ipratropium (Duoneb 3 Mg/0.5 Mg (3 Ml) Ud) 3 ml IH Q2H PRN PRN Reason: Shortness of Breath Chlordiazepoxide (Librium) 25 mg PO Q8 [facility] PRN Reason: Protocol Last Admin: 08/10/16 14:03 Dose: 25 mg Folic Acid 1 mg/ Thiamine HCl 100 mg/ Multivitamins/Vitamin C 10 ml/ Dextrose 1 ,011.2 mls @ 100 mls/hr IV .Q10H7M [facility] Last Admin: 08/09/16 13:25 Dose: 100 mls/hr Loperamide HCl (Imodium) 2 mg PO QID PRN PRN Reason: Diarrhea Lorazepam (Ativan) 1 mg IVP Q4H PRN; Protocol PRN Reason: Anxiety Last Admin: 08/10/16 15:03 Dose: 1 mg Ondansetron HCl (Zofran Inj) 4 mg IVP Q4H PRN PRN Reason: Nausea/Vomiting Last Admin: 08/10/16 07:11 Dose: 4 mg Pantoprazole Sodium (Protonix Ec Tab) 40 mg PO 0630 [facility] Last Admin: 08/10/16 05:35 Dose: 40 mg - Labs Labs: 08/10/16 07:45 08/10/16 07:45 PT 12.8 Seconds (9.9-11.8) H 08/07/16 18:29 INR 1.19 (0.93-1.08) H 08/07/16 18:29 APTT 30.7 Seconds (23.7-30.8) 08/07/16 18:29 - Constitutional Appears: Well, No Acute Distress - Head Exam Head Exam: ATRAUMATIC, NORMOCEPHALIC - Eye Exam Eye Exam: Normal appearance - ENT Exam ENT Exam: Mucous Membranes Moist - Respiratory Exam Respiratory Exam: Clear to Ausculation Bilateral, NORMAL BREATHING PATTERN. absent: Decreased Breath Sounds, Rhonchi, Wheezes, Respiratory Distress - Cardiovascular Exam Cardiovascular Exam: REGULAR RHYTHM. absent: Tachycardia, Murmur - GI/Abdominal Exam GI & Abdominal Exam: Soft, Tenderness, Normal Bowel Sounds. absent: Firm, Guarding - Extremities Exam Extremities Exam: Normal Inspection - Neurological Exam Neurological Exam: Alert, Awake, Oriented x3 - Skin Skin Exam: Dry, Intact, Normal Color, Warm Assessment and Plan - Assessment and Plan (Free Text) Assessment: 55 y/o M with PMH of chronic alcoholism, chronic pancreatitis, erosive esophagitis, gastritis, COPD and anemia presents with hematemesis and alcohol intoxication. Hgb stable. Pt continues to be unsteady with persistent nausea and loose bowel movements. Plan: 1. Hematemesis - no episodes during hospital stay - Hgb at baseline - stop Protonix and Ocreotide drips - start protonix PO - cont to monitor Hgb - advance diet as tolerated - GI recommenced outpatient follow up 2. Alcohol intoxication - Alcohol level >250 on admission - cont [facility] protocol - Aspiration and seizure precautions - cont Banana Bag - Zofran prn - cont Librium 25 POq8h - cont Ativan 1 mg q4h prn - PT eval- discharge home 3. loose BM - cont imodium - send stool for stool studies and c. diff 4. persistent nausea - cont zofran prn - diet as tolerated 5. hypokalemia - replaced - recheck in AM 6. Chest pain - associated with cough - trops negative x1 - EKG sinus tachy, no ST changes 7. Hx of chronic pancreatitis - Lipase mildly elevated above normal - cont to monitor 8. Hx of COPD - Duonebs prn - Nasal cannula as needed 9. PPX DVT- SCDs GI- Protonix <Alaina Goel - Last Filed: 08/11/16 13:40> Objective - Vital Signs/Intake and Output Vital Signs (last 24 hours): Temp Pulse Resp BP Pulse Ox 97.6 F 72 18 118/80 94 L 08/11/16 08:24 08/11/16 08:24 08/11/16 08:24 08/11/16 08:24 08/11/16 08:24 Intake and Output: 08/11/16 08/11/16 06:59 18:59 Intake Total 2400 Balance 2400 - Medications Medications: Current Medications Albuterol/Ipratropium (Duoneb 3 Mg/0.5 Mg (3 Ml) Ud) 3 ml IH Q2H PRN PRN Reason: Shortness of Breath Chlordiazepoxide (Librium) 25 mg PO Q8 [facility] PRN Reason: Protocol Last Admin: 08/11/16 05:43 Dose: 25 mg Lorazepam (Ativan) 1 mg IVP Q4H PRN; Protocol PRN Reason: Anxiety Last Admin: 08/11/16 11:33 Dose: 1 mg Ondansetron HCl (Zofran Inj) 4 mg IVP Q4H PRN PRN Reason: Nausea/Vomiting Last Admin: 08/11/16 11:33 Dose: 4 mg Pantoprazole Sodium (Protonix Ec Tab) 40 mg PO 0630 [facility] Last Admin: 08/11/16 05:43 Dose: 40 mg - Labs Labs: 08/11/16 07:00 08/11/16 07:00 PT 12.8 Seconds (9.9-11.8) H 08/07/16 18:29 INR 1.19 (0.93-1.08) H 08/07/16 18:29 APTT 30.7 Seconds (23.7-30.8) 08/07/16 18:29 Attending/Attestation - Attestation I have personally seen and examined this patient.: Yes I have fully participated in the care of the patient.: Yes I have reviewed all pertinent clinical information, including history, physical exam and plan: Yes Notes (Text): 08/11/16 13:38 attending note; Patient seen and examined with resident. Patient is well known to our service due to chronic alcohol abuse. Currently admitted with alcohol abuse and hematemesis. No hematemesis noted since admission. Complained of nausea but no vomiting. Complaining of one episode of diarrhea not witnessed by nursing staff. Patient with a history of gastritis and esophageal ulcer. GI evaluation appreciated. Hemoglobin is stable. Complete alcohol cessation is recommended. Needs outpatient GI follow-up for repeat endoscopy. alcohol Withdrawal symptoms; improved significantly. history of depression; psychiatric evaluation appreciated. Information about AA meetings and rehabilitation given. Noncompliance with follow up. Upon discharge the patient will [place] [facility] [place]
[2016-08-11] MEDS: Pantoprazole 40 mg EC Tab PO SCH (05:43)
[2016-08-11 07:10] LABS: ADD MANUAL DIFF? NO
[2016-08-11 07:14] LABS: BASO # 0.01 K/mm3 (0.0-2.0); BASO % 0.1 % (0.0-3.0); EOS # 0.9 (0.0-0.7); EOS % 11.8 % (1.5-5.0); HEMATOCRIT 34.5 % (42.0-52.0); LYMPH # 1.8 (1.2-3.4); LYMPH % 24.4 % (22.0-35.0); MEAN CELL VOLUME 76.3 fL (80.0-105.0); MEAN CORPUSCULAR HEMOGLOBIN 23.9 pg (25.0-35.0); MEAN CORPUSCULAR HGB CONC 31.3 g/dl (31.0-37.0); MEAN PLATELET VOLUME 8.7 fl (7.0-11.0); MONO # 0.5 (0.1-0.6); MONO % 6.7 % (1.0-6.0); PLATELET COUNT 199 10^3/uL (120.0-450.0); RED CELL DISTRIBUTION WIDTH 17.3 % (11.5-14.5); WHITE BLOOD COUNT 7.2 10^3/ul (4.5-11.0)
[2016-08-11 07:29] LABS: ALB/GLOB RATIO 0.9 (1.1-1.8); ALKALINE PHOSPHATASE 89 U/L (38-133); ALT/SGPT 29 U/L (7-56); AST/SGOT 30 U/L (15-59); BILIRUBIN,TOTAL 0.6 mg/dL (0.2-1.3); BLOOD UREA NITROGEN 7 mg/dL (7-21); CALCIUM 8.5 mg/dL (8.4-10.5); CARBON DIOXIDE 29 mmol/L (21-33); CHLORIDE 101 mmol/L (98-107); GFR AFRICAN-AMERICAN > 60; GLUCOSE,RANDOM 107 mg/dL (70-110); POTASSIUM 3.3 mmol/L (3.6-5.0); SODIUM 137 mmol/L (132-148); TOTAL PROTEIN 6.7 g/dL (5.8-8.3)
[2016-08-11 08:25] VITALS: BP 118/80; PULSE 72; RESP 18; TEMP 97.6; O2SAT 94
[2016-08-11] MEDS: Folic Acid 1 MG, Thiamine 100 MG, Multivitamin (MVI) 10 ML in Dextrose 5% In Water 1,00... IV SCH (08:37)
[2016-08-11] MEDS ORDERED: Magnesium Sulfate 2 GM in Sodium Chloride 0.9% 100 ML IVPB ONE (09:31)
[2016-08-11] MEDS ORDERED: Potassium Chloride 20 mEq ER Tab PO ONE (09:37)
--- NOTE | 2016-08-11 12:35 | CP.PCM.DIS ---
<Karma Cortez - Last Filed: 08/11/16 13:26> Provider - Provider Date of Admission: 08/07/16 18:04 Attending physician: Alaina Goel MD Primary care physician: NO PRIMARY CARE PROVIDER Consults: Psych: Dr. Anderson Time Spent in preparation of Discharge (in minutes): 45 Diagnosis - Discharge Diagnosis (1) ETOH abuse Status: Acute (2) Erosive esophagitis Status: Acute (3) COPD (chronic obstructive pulmonary disease) Status: Chronic (4) HTN (hypertension) Status: Chronic Hospital Course - Lab Results Lab Results: Most Recent Lab Values WBC 7.2 10^3/ul (4.5-11.0) 08/11/16 07:00 RBC 4.52 10^6/uL (3.5-6.1) 08/11/16 07:00 Hgb 10.8 gm/dL (14.0-18.0) L 08/11/16 07:00 Hct 34.5 % (42.0-52.0) L 08/11/16 07:00 MCV 76.3 fL (80.0-105.0) L 08/11/16 07:00 MCH 23.9 pg (25.0-35.0) L 08/11/16 07:00 MCHC 31.3 g/dl (31.0-37.0) 08/11/16 07:00 RDW 17.3 % (11.5-14.5) H 08/11/16 07:00 Plt Count 199 10^3/uL (120.0-450.0) 08/11/16 07:00 MPV 8.7 fl (7.0-11.0) 08/11/16 07:00 Gran % 57.0 % (50.0-68.0) 08/11/16 07:00 Lymph % (Auto) 24.4 % (22.0-35.0) 08/11/16 07:00 [place] % (Auto) 6.7 % (1.0-6.0) H 08/11/16 07:00 Eos % (Auto) 11.8 % (1.5-5.0) H 08/11/16 07:00 Baso % (Auto) 0.1 % (0.0-3.0) 08/11/16 07:00 Gran # 4.10 (1.4-6.5) 08/11/16 07:00 Lymph # 1.8 (1.2-3.4) 08/11/16 07:00 [place]y # 0.5 (0.1-0.6) 08/11/16 07:00 Eos # 0.9 (0.0-0.7) H 08/11/16 07:00 Baso # 0.01 K/mm3 (0.0-2.0) 08/11/16 07:00 PT 12.8 Seconds (9.9-11.8) H 08/07/16 18:29 INR 1.19 (0.93-1.08) H 08/07/16 18:29 APTT 30.7 Seconds (23.7-30.8) 08/07/16 18:29 Sodium 137 mmol/L (132-148) 08/11/16 07:00 Potassium 3.3 mmol/L (3.6-5.0) L 08/11/16 07:00 Chloride 101 mmol/L (98-107) 08/11/16 07:00 Carbon Dioxide 29 mmol/L (21-33) 08/11/16 07:00 Anion Gap 10 (10-20) 08/11/16 07:00 BUN 7 mg/dL (7-21) 08/11/16 07:00 Creatinine 0.8 mg/dL (0.5-1.4) 08/11/16 07:00 Est GFR ( Amer) > 60 08/11/16 07:00 Est GFR (Non-Af Amer) > 60 08/11/16 07:00 POC Glucose (mg/dL) 151 mg/dL (65-110) H 08/07/16 21:48 Random Glucose 107 mg/dL (70-110) 08/11/16 07:00 Calcium 8.5 mg/dL (8.4-10.5) 08/11/16 07:00 Magnesium 1.8 mg/dL (1.7-2.2) 08/11/16 10:00 Total Bilirubin 0.6 mg/dL (0.2-1.3) 08/11/16 07:00 AST 30 U/L (15-59) 08/11/16 07:00 ALT 29 U/L (7-56) 08/11/16 07:00 Alkaline Phosphatase 89 U/L (38-133) 08/11/16 07:00 Lactate Dehydrogenase 391 U/L (333-699) 08/07/16 15:56 Troponin I < 0.01 ng/mL 08/09/16 01:00 Total Protein 6.7 g/dL (5.8-8.3) 08/11/16 07:00 Albumin 3.1 g/dL (3.0-4.8) 08/11/16 07:00 Globulin 3.6 gm/dL 08/11/16 07:00 Albumin/Globulin Ratio 0.9 (1.1-1.8) L 08/11/16 07:00 Lipase 301 U/L (23-300) H 08/07/16 15:56 Alcohol, Quantitative 254 mg/dL (0-10) H 08/07/16 15:56 Blood Type O POSITIVE 08/07/16 18:53 Antibody Screen Negative 08/07/16 18:53 BBK History Checked Patient has bt 08/07/16 18:53 - Hospital Course Hospital Course: 55 y/o M with PMH chronic alcoholism, chronic pancreatitis, erosive esophagitis , gastritis, and COPD presents to the hospital for nausea and vomiting and while in ED patient experienced 2 episodes of hematemesis. Patient was started on octreotide drip and protonix drip. GI, Dr. Moya was consulted and recommended outpatient follow up. Patient's hgb/hct remained stable and he did not experience any more hemetemisis. Ocreotide and protonix drip were discontinued. Patient also has history of ETOH abuse and his last drink was the day before he came to hospital. Patient was started on librium and ativan tapering, CIWA protocol and multivitamin, thiamine and folic acid. Patient remained stable and did not experience any withdrawal symptoms. He was seen and cleared by physical therapy for discharge. Patient is to follow up with PMD upon discharge. Discussed with patient the risks of ETOH abuse and recommended cessation. Patient is discharged with the following medications: Librium, Multivitamin with folate, thiamine, zofran and protonix. Scripts are given to patient before discharge. Please see MAr for full details. - Date & Time of H&P Date of H&P: 08/11/16 Time of H&P: 12:36 Discharge Exam - Head Exam Head Exam: ATRAUMATIC, NORMOCEPHALIC - Eye Exam Pupil Exam: PERRL - ENT Exam ENT Exam: Mucous Membranes Moist - Respiratory Exam Respiratory Exam: Clear to PA & Lateral, NORMAL BREATHING PATTERN. absent: Rales, Rhonchi, Wheezes - Cardiovascular Exam Cardiovascular Exam: REGULAR RHYTHM, +S1, +S2. absent: Diastolic murmur, Gallop , Rubs, Systolic Murmur - GI/Abdominal Exam GI & Abdominal Exam: Normal Bowel Sounds, Soft, Unremarkable. absent: Distended , Firm, Rigid, Tenderness - Extremities Exam Additional comments: no edema or tenderness - Neurological Exam Neurological exam: Alert, Oriented x3 - Psychiatric Exam Psychiatric exam: Normal Affect, Normal Mood - Skin Skin Exam: Dry, Intact, Normal Color, Warm Discharge Plan - Discharge Medications Prescriptions: chlordiazePOXIDE [Chlordiazepoxide HCl] 10 mg PO TID #6 cap Multivitamin with Folic Acid [One Daily Essential Tablet] 400 mcg PO DAILY #30 tablet Ondansetron HCl [Zofran] 4 mg PO Q6 PRN #20 tablet PRN Reason: Nausea/Vomiting Pantoprazole [Protonix EC Tab] 40 mg PO 0630 #30 ect Thiamine [Vitamin B1 Tab] 100 mg PO DAILY #30 tab - Follow Up Plan Condition: GUARDED Disposition: HOME/ ROUTINE Instructions: Gastritis (DC), Abuse of Alcohol (DC), Acute Nausea and Vomiting (DC) Additional Instructions: Patient is to follow up with PMD upon discharge. follow up with [facility] clinic. Discussed with patient the risks of ETOH abuse and recommended cessation. Follow up with GI clinic at [facility]. Patient is discharged with the following medications: Librium, Multivitamin with folate, thiamine, zofran and protonix. Scripts are given to patient before discharge. Referrals: PCP,INOCENCIA [Primary Care Provider] - <Alaina Goel - Last Filed: 08/11/16 13:44> Provider - Provider Date of Admission: 08/07/16 18:04 Attending physician: Alaina Goel MD Primary care physician: INOCENCIA PRIMARY CARE PROVIDER Hospital Course - Lab Results Lab Results: Most Recent Lab Values WBC 7.2 10^3/ul (4.5-11.0) 08/11/16 07:00 RBC 4.52 10^6/uL (3.5-6.1) 08/11/16 07:00 Hgb 10.8 gm/dL (14.0-18.0) L 08/11/16 07:00 Hct 34.5 % (42.0-52.0) L 08/11/16 07:00 MCV 76.3 fL (80.0-105.0) L 08/11/16 07:00 MCH 23.9 pg (25.0-35.0) L 08/11/16 07:00 MCHC 31.3 g/dl (31.0-37.0) 08/11/16 07:00 RDW 17.3 % (11.5-14.5) H 08/11/16 07:00 Plt Count 199 10^3/uL (120.0-450.0) 08/11/16 07:00 MPV 8.7 fl (7.0-11.0) 08/11/16 07:00 Gran % 57.0 % (50.0-68.0) 08/11/16 07:00 Lymph % (Auto) 24.4 % (22.0-35.0) 08/11/16 07:00 Yancey % (Auto) 6.7 % (1.0-6.0) H 08/11/16 07:00 Eos % (Auto) 11.8 % (1.5-5.0) H 08/11/16 07:00 Baso % (Auto) 0.1 % (0.0-3.0) 08/11/16 07:00 Gran # 4.10 (1.4-6.5) 08/11/16 07:00 Lymph # 1.8 (1.2-3.4) 08/11/16 07:00 [place]y # 0.5 (0.1-0.6) 08/11/16 07:00 Eos # 0.9 (0.0-0.7) H 08/11/16 07:00 Baso # 0.01 K/mm3 (0.0-2.0) 08/11/16 07:00 PT 12.8 Seconds (9.9-11.8) H 08/07/16 18:29 INR 1.19 (0.93-1.08) H 08/07/16 18:29 APTT 30.7 Seconds (23.7-30.8) 08/07/16 18:29 Sodium 137 mmol/L (132-148) 08/11/16 07:00 Potassium 3.3 mmol/L (3.6-5.0) L 08/11/16 07:00 Chloride 101 mmol/L (98-107) 08/11/16 07:00 Carbon Dioxide 29 mmol/L (21-33) 08/11/16 07:00 Anion Gap 10 (10-20) 08/11/16 07:00 BUN 7 mg/dL (7-21) 08/11/16 07:00 Creatinine 0.8 mg/dL (0.5-1.4) 08/11/16 07:00 Est GFR ( Amer) > 60 08/11/16 07:00 Est GFR (Non-Af Amer) > 60 08/11/16 07:00 POC Glucose (mg/dL) 151 mg/dL (65-110) H 08/07/16 21:48 Random Glucose 107 mg/dL (70-110) 08/11/16 07:00 Calcium 8.5 mg/dL (8.4-10.5) 08/11/16 07:00 Magnesium 1.8 mg/dL (1.7-2.2) 08/11/16 10:00 Total Bilirubin 0.6 mg/dL (0.2-1.3) 08/11/16 07:00 AST 30 U/L (15-59) 08/11/16 07:00 ALT 29 U/L (7-56) 08/11/16 07:00 Alkaline Phosphatase 89 U/L (38-133) 08/11/16 07:00 Lactate Dehydrogenase 391 U/L (333-699) 08/07/16 15:56 Troponin I < 0.01 ng/mL 08/09/16 01:00 Total Protein 6.7 g/dL (5.8-8.3) 08/11/16 07:00 Albumin 3.1 g/dL (3.0-4.8) 08/11/16 07:00 Globulin 3.6 gm/dL 08/11/16 07:00 Albumin/Globulin Ratio 0.9 (1.1-1.8) L 08/11/16 07:00 Lipase 301 U/L (23-300) H 08/07/16 15:56 Alcohol, Quantitative 254 mg/dL (0-10) H 08/07/16 15:56 Blood Type O POSITIVE 08/07/16 18:53 Antibody Screen Negative 08/07/16 18:53 BBK History Checked Patient has bt 08/07/16 18:53 Attending/Attestation - Attestation I have personally seen and examined this patient.: Yes I have fully participated in the care of the patient.: Yes I have reviewed all pertinent clinical information, including history, physical exam and plan: Yes Notes (Text): 08/11/16 13:42 attending note; Patient seen and examined with resident. Patient is well known to our service due to chronic alcohol abuse. Currently admitted with alcohol abuse and hematemesis. No hematemesis noted since admission. Denies any nausea, vomiting. Tolerated diet well. No diarrhea noted by nursing staff. Patient with a history of gastritis and esophageal ulcer. GI evaluation appreciated. Hemoglobin is stable. Complete alcohol cessation is recommended. Needs outpatient GI follow-up for repeat endoscopy. alcohol Withdrawal symptoms; improved significantly. Physical therapy evaluation appreciated. history of depression; psychiatric evaluation appreciated. Information about AA meetings and rehabilitation given. Noncompliance with follow up. Upon discharge the patient will follow up with [facility] clinic. Diagnosis; Alcohol abuse Gastritis/esophageal ulcer Noncompliance with follow-up Depression
== END 2016-08-11 14:22 | disposition home or self-care (01) | DRG 750 ==
LOC: ED 13:38 → EROBSV 16:40 → OBSVTOIN 18:04 → ERH 18:04 → 2RSO 22:52 → 3RSO 08-09 15:52
PROVIDERS: ADMIT Hospitalist; ATTEND Internal Medicine
DX: F10.239 Alcohol dependence with withdrawal, unspecified (principal); J44.9 Chronic obstructive pulmonary disease, unspecified; K92.0 Hematemesis; K22.10 Ulcer of esophagus without bleeding; K86.1 Other chronic pancreatitis; D64.9 Anemia, unspecified; E11.9 Type 2 diabetes mellitus without complications; I10 Essential (primary) hypertension; F32.9 Major depressive disorder, single episode, unspecified; E87.6 Hypokalemia; F10.229 Alcohol dependence with intoxication, unspecified; K29.70 Gastritis, unspecified, without bleeding; R06.6 Hiccough; R07.9 Chest pain, unspecified; Y90.8 Blood alcohol level of 240 mg/100 ml or more; Z91.19 Patient's noncompliance with other medical treatment and regimen; Z87.891 Personal history of nicotine dependence; Z80.0 Family history of malignant neoplasm of digestive organs

== ENCOUNTER 2016-08-19 17:58 | Inpatient (IN) | payer MEDICAID, OTHER ==
[2016-08-19 17:58] VITALS: BMI 25.8
--- NOTE | 2016-08-19 18:10 | ED PDOC ---
Arrival/HPI - General Chief Complaint: Chest Pain Time Seen by Provider: 08/19/16 18:05 Historian: Patient - History of Present Illness Narrative History of Present Illness (Text): 08/19/16 18:09 55-year-old male with past medical history of chronic alcoholism, chronic pancreatitis, erosive esophagitis, gastritis, and COPD presents to the emergency department with chest pain that is non-exertional, non-reproducible, and worse with vomiting since last night. No other complaints at this time. Time/Duration: 24 hours Symptom Onset: Gradual Symptom Course: Unchanged Associated Symptoms (Text): None Past Medical History - Provider Review Nursing Documentation Reviewed: Yes - Past History Past History: No Previous - Infectious Disease Hx of Infectious Diseases: None - Tetanus Immunization Tetanus Immunization: Unknown - Cardiac Hx Cardiac Disorders: Yes Hx Hypertension: Yes - Pulmonary Hx Respiratory Disorders: Yes Hx Asthma: Yes Hx Chronic Obstructive Pulmonary Disease (COPD): Yes - Neurological Hx Neurological Disorder: No HX Cerebrovascular Accident: No - HEENT Hx HEENT Disorder: No - Renal Hx Renal Disorder: No - Endocrine/Metabolic Hx Endocrine Disorders: Yes Hx Diabetes Mellitus Type 2: Yes - Hematological/Oncological Hx Blood Disorders: Yes Hx Cancer: Yes (pt does not specify) - Integumentary Hx Dermatological Disorder: No - Musculoskeletal/Rheumatological Hx Musculoskeletal Disorders: Yes Hx Falls: Yes - Gastrointestinal Hx Gastrointestinal Disorders: Yes Hx Gastroesophageal Reflux: Yes - Genitourinary/Gynecological Hx Genitourinary Disorders: No - Psychiatric Hx Psychophysiologic Disorder: Yes (ETOH) Hx Anxiety: Yes Hx Depression: Yes Hx Substance Use: No Other/Comment: Alcohol Abuse - Surgical History Hx Cardiac Catheterization: No Hx Coronary Stent: No Hx Musculoskeletal Surgery: Yes (Left hand surgery) - Anesthesia Hx Anesthesia: Yes - Suicidal Assessment Feels Threatened In Home Enviroment: No Family/Social History - Physician Review Nursing Documentation Reviewed: Yes Family/Social History: Unknown Family HX Smoking Status: Current Some Days Smoker Hx Alcohol Use: Yes Frequency of alcohol use: Daily Amount per day: 10 Hx Substance Use: No Hx Substance Use Treatment: No Allergies/Home Meds Allergies/Adverse Reactions: Allergies Penicillins Allergy (Verified 08/19/16 18:02) RASH Home Medications: Home Meds Medication Instructions Recorded Confirmed No Known Home Med 08/19/16 08/19/16 Review of Systems - Physician Review All systems were reviewed & negative as marked: Yes Physical Exam - Physical Exam Narrative Physical Exam (Text): - Review of Systems Constitutional: Normal. absent: Fatigue, Weight Change, Fevers Eyes: Normal ENT: Normal Respiratory: Normal absent: SOB, Cough, Sputum Cardiovascular: Chest pain absent: Palpitations, Syncope Gastrointestinal: Vomiting absent: Abdominal pain, Diarrhea, Nausea, Genitourinary: Normal. absent: Dysuria, Frequency, Hematuria Musculoskeletal: Normal. absent: Arthralgias, Back Pain, Neck Pain Skin: Normal Neurological: Normal absent: Focal Weakness Endocrine: Normal Hemo/Lymphatic: Normal Psychiatric: Normal - Physical exam Patient appears age appropriate, speaking full sentences without difficulty - Systems Exam Head: Present: Atraumatic, Normocephalic Pupils: Present: PERRL Extraocular Muscles: Present: EOMI Conjunctiva: Present: Normal Mouth: Present: Moist Mucous Membranes Neck: Present: Normal Range of Motion. No: MIDLINE TENDERNESS, Paraspinal Tenderness Respiratory/Chest: Present: Clear to Auscultation, Good Air Exchange. No: Respiratory Distress, Accessory Muscle Use, Tachypneic Cardiovascular: Present: Regular Rate and Rhythm, Normal S1, S2, Peripheral Pulses Present. No: Murmurs Abdomen: Present: Normal Bowel Sounds, No: Tenderness, Peritoneal Signs, Rebound, Guarding, Distention Back: Present: Normal Inspection. No: Midline Tenderness, Paraspinal Tenderness Upper Extremity: Present: Normal Inspection. No: Cyanosis, Edema Lower Extremity: Present: Normal Inspection. No: Edema Neurological: Present: GCS=15, Speech Normal, cranial nerves II through XII fully intact with no cerebellar abnormality, neuro-sensory fully intact. No focal neurological deficits. Skin: Present: Warm, Dry, Normal Color. No: Rashes Lymphatic: Present: OX3, NI, NC Psychiatric: Present: Alert, Oriented x 3, Normal Insight, Normal Concentration. Vital Signs Reviewed: Yes Vital Signs Temp Pulse Resp BP Pulse Ox 08/19/16 18:03 98.4 F 85 17 160/91 H 99 Temperature: Afebrile Blood Pressure: Normal Pulse: Regular Respiratory Rate: Normal Appearance: Positive for: Well-Appearing, Non-Toxic, Comfortable Pain Distress: None Mental Status: Positive for: Alert and Oriented X 3 Medical Decision Making ED Course and Treatment: Impression: 55-year-old male with past medical history of chronic alcoholism, chronic pancreatitis, erosive esophagitis, gastritis, and COPD presents to the emergency department with chest pain that is non-exertional, non-reproducible, and worse with vomiting since last night. On physical exam, patient has no acute findings. Plan: -- Asprin, Ativan, Protonix -- Labs -- Reassess and disposition Prior Visits: Patient's previous records reviewed, patient was discharged on 08/11/16, after evaluation of hematemesis. Patient has been seen and cleared by GI. Patient's hemoglobin remained stable while he was in the hospital. Patient was initially placed on octreotide and Protonix drips which were eventually discontinued. Patient was started on Librium and Ativan tapering along with multivitamins, thiamine and folic acid. Psychiatric evaluation has also been scheduled for patient. He was discharged home. Progress Notes: 08/19/16 20:17 EKG interpreted by ER physician. Normal sinus. No ST-segment elevations. Normal intervals. Chest xray interpreted by ED physician shows no pneumothorax, no cardiomegaly, no infiltrates 08/19/16 20:[address] Mg, tele obs for chest pain pt aware of and agrees with plan - Lab Interpretations Lab Results: 08/19/16 18:35 08/19/16 18:35 Lab Results 08/19/16 18:35: PT 12.0 H, INR 1.11 H, APTT 34.5 H 08/19/16 18:35: Blood Type O POSITIVE, Antibody Screen Negative, BBK History Checked Patient has bt 08/19/16 18:35: TIBC 402 08/19/16 18:35: Sodium 131 L, Potassium 3.5 L, Chloride 93 L, Carbon Dioxide 28 , Anion Gap 14, BUN 6 L, Creatinine 0.6, Est GFR ( Amer) > 60, Est GFR ( Non-Af Amer) > 60, Random Glucose 112 H, Calcium 8.2 L, Ferritin Pending, Total Bilirubin 0.5, AST 55, ALT 31, Alkaline Phosphatase 99, Lactate Dehydrogenase 483, Total Creatine Kinase 64, Troponin I < 0.01, Total Protein 7.4, Albumin 3.7 , Globulin 3.7, Albumin/Globulin Ratio 1.0 L, Lipase 301 H 08/19/16 18:35: WBC 10.6 D, RBC 4.29, Hgb 10.8 L, Hct 32.0 L, MCV 74.6 L, MCH 25.2, MCHC 33.8, RDW 17.8 H, Plt Count 207, MPV 9.0, Gran % 83.1 H, Lymph % ( Auto) 11.3 L, [place] % (Auto) 5.0, Eos % (Auto) 0.3 L, Baso % (Auto) 0.3, Gran # 8.79 H, Lymph # 1.2, [place] # 0.5, Eos # 0.0, Baso # 0.03 - RAD Interpretation Radiology Orders: 08/19/16 18:23 CHEST PORTABLE [RAD] Stat - Medication Orders Current Medication Orders: Folic Acid 1 mg/ Thiamine HCl 100 mg/ Multivitamins/Vitamin C 10 ml/ Dextrose 1 ,011.2 mls @ 100 mls/hr IV .[id number] SOPHIA Last Admin: 08/19/16 19:52 Dose: 100 mls/hr Discontinued Medications Aspirin (Aspirin Chewable) 324 mg PO STAT STA Stop: 08/19/16 18:23 Last Admin: 08/19/16 19:25 Dose: 324 mg Lorazepam (Ativan) 2 mg IVP ONCE ONE Stop: 08/19/16 18:23 Last Admin: 08/19/16 19:25 Dose: 2 mg Pantoprazole Sodium (Protonix Inj) 40 mg IVP STAT STA Stop: 08/19/16 18:23 Last Admin: 08/19/16 19:25 Dose: 40 mg - Scribe Statement The provider has reviewed the documentation as recorded by the Mary Mandel Provider Scribe Attestation: All medical record entries made by the Mary were at my direction and personally dictated by me. I have reviewed the chart and agree that the record accurately reflects my personal performance of the history, physical exam, medical decision making, and the department course for this patient. I have also personally directed, reviewed, and agree with the discharge instructions and disposition. Disposition/Present on Arrival - Present on Arrival Any Indicators Present on Arrival: No History of DVT/PE: No History of Uncontrolled Diabetes: No Urinary Catheter: No History of Decub. Ulcer: No History Surgical Site Infection Following: None - Disposition Have Diagnosis and Disposition been Completed?: Yes Diagnosis: Chest pain Disposition: HOSPITALIZED Disposition Time: 20:50 Patient Plan: Observation Condition: FAIR Discharge Instructions (ExitCare): Chest Pain (ED) Referrals: Merlin Alexander MD [Primary Care Provider] - Follow up with primary
[2016-08-19 19:09] LABS: ADD MANUAL DIFF? NO
[2016-08-19 19:19] LABS: BASO # 0.03 K/mm3 (0.0-2.0); BASO % 0.3 % (0.0-3.0); EOS % 0.3 % (1.5-5.0); GRAN # 8.79 (1.4-6.5); GRAN % 83.1 % (50.0-68.0); LYMPH # 1.2 (1.2-3.4); LYMPH % 11.3 % (22.0-35.0); MEAN CELL VOLUME 74.6 fL (80.0-105.0); MEAN CORPUSCULAR HEMOGLOBIN 25.2 pg (25.0-35.0); MEAN CORPUSCULAR HGB CONC 33.8 g/dl (31.0-37.0); MONO # 0.5 (0.1-0.6); PLATELET COUNT 207 10^3/uL (120.0-450.0); RED CELL DISTRIBUTION WIDTH 17.8 % (11.5-14.5); WHITE BLOOD COUNT 10.6 10^3/ul (4.5-11.0)
[2016-08-19 19:24] LABS: ALKALINE PHOSPHATASE 99 U/L (38-133); ALT/SGPT 31 U/L (7-56); AST/SGOT 55 U/L (15-59); BILIRUBIN,TOTAL 0.5 mg/dL (0.2-1.3); BLOOD UREA NITROGEN 6 mg/dL (7-21); CALCIUM 8.2 mg/dL (8.4-10.5); CARBON DIOXIDE 28 mmol/L (21-33); CHLORIDE 93 mmol/L (98-107); GFR AFRICAN-AMERICAN > 60; GLUCOSE,RANDOM 112 mg/dL (70-110); LIPASE 301 U/L (23-300); POTASSIUM 3.5 mmol/L (3.6-5.0); SODIUM 131 mmol/L (132-148); TOTAL PROTEIN 7.4 g/dL (5.8-8.3)
[2016-08-19 19:32] LABS: INR 1.11 (0.93-1.08); PARTIAL THROMBOPLASTIN TIME 34.5 Seconds (23.7-30.8)
[2016-08-19 19:36] LABS: TROPONIN I < 0.01 ng/mL
[2016-08-19] MEDS: Folic Acid 1 MG, Thiamine 100 MG, Multivitamin (MVI) 10 ML in Dextrose 5% In Water 1,00... IV SCH (19:52)
--- NOTE | 2016-08-19 21:19 | CP.PCM.HP ---
History of Present Illness - History of Present Illness History of Present Illness: CC: Chest pain x 1 day HPI: 55 y/o male known to myself from previous hospital admissions presents to the ED with the c/o Chest and back pain which began last night. Patient states he was moving around [facility] when he started to feel a substernal chest pressure which also radiated along the right side of his chest. He felt diaphoretic and also complained of intermittent back pain which has since resolved. He states sitting down and resting made him feel better and his pain is not as bad today as it was yesterday. Patient denies any complaints of palpitations, abdominal pain, nausea, vomiting, headache, fever, chills or diarrhea. He was recently admitted to the hospital just over 1 week ago where he was monitored for possible hemetemesis. His hgb remained stable, he was to be seen as an outpatient for a possible EGD and his symptoms resolved. He currently denies any complaints of hemetemesis and states his pain is different in nature than it was when he was vomiting on his last hospital visit. Patient is also currently intoxicated from alcohol right now, so he may not be the best historian. PMHx: COPD Etoh Abuse Erosive gastritis chronic pancreatitis h/o R inguinal incarcerated hernia repair + orchiectemy Allergies: PCN Fam Hx: Father secondary to rectal cancer; mother with Ovarian Cancer Meds: Patient reports taking no medications; these are a list of medications prescribed for him on his last hospital discharge Librium 10mg po TID MVI daily Zofran 4mg po q6h prn Protonix 40mg po daily Thiamine daily Soc Hx: + tobacco use (states 1/4 ppd); history of Etoh abuse, normally drinks 6 beers daily (he states having 2 beers this afternoon); denies illicit drug use Present on Admission - Present on Admission Any Indicators Present on Admission: No Review of Systems - Review of Systems Review of Systems: As per HPI otherwise negative for a 12 point ROS Past Patient History - Infectious Disease Hx of Infectious Diseases: None - Tetanus Immunizations Tetanus Immunization: Unknown - Past Medical History & Family History Past Medical History?: Yes - Past Social History Smoking Status: Current Some Days Smoker - CARDIAC Hx Cardiac Disorders: Yes Hx Hypertension: Yes - PULMONARY Hx Respiratory Disorders: Yes Hx Asthma: Yes Hx Chronic Obstructive Pulmonary Disease (COPD): Yes - NEUROLOGICAL Hx Neurological Disorder: No HX Cerebrovascular Accident: No - HEENT Hx HEENT Problems: No - RENAL Hx Chronic Kidney Disease: No - ENDOCRINE/METABOLIC Hx Endocrine Disorders: Yes Hx Diabetes Mellitus Type 2: Yes - HEMATOLOGICAL/ONCOLOGICAL Hx Blood Disorders: Yes Hx Cancer: Yes (pt does not specify) - INTEGUMENTARY Hx Dermatological Problems: No - MUSCULOSKELETAL/RHEUMATOLOGICAL Hx Musculoskeletal Disorders: Yes Hx Falls: Yes - GASTROINTESTINAL Hx Gastrointestinal Disorders: Yes Hx Gastroesophageal Reflux: Yes - GENITOURINARY/GYNECOLOGICAL Hx Genitourinary Disorders: No - PSYCHIATRIC Hx Psychophysiologic Disorder: Yes (ETOH) Hx Anxiety: Yes Hx Depression: Yes Hx Substance Use: No Other/Comment: Alcohol Abuse - SURGICAL HISTORY Hx Cardiac Catheterization: No Hx Coronary Stent: No Hx Musculoskeletal Surgery: Yes (Left hand surgery) - ANESTHESIA Hx Anesthesia: Yes Meds Allergies/Adverse Reactions: Allergies Allergy/AdvReac Type Severity Reaction Status Date / Time Penicillins Allergy RASH Verified 08/19/16 18:02 Physical Exam - Constitutional Appears: No Acute Distress, Unkempt - Head Exam Head Exam: ATRAUMATIC, NORMOCEPHALIC - Eye Exam Eye Exam: EOMI - ENT Exam ENT Exam: Mucous Membranes Dry - Neck Exam Neck exam: Positive for: Normal Inspection - Respiratory Exam Respiratory Exam: Clear to Auscultation Bilateral, NORMAL BREATHING PATTERN. absent: Rales, Rhonchi, Wheezes - Cardiovascular Exam Cardiovascular Exam: REGULAR RHYTHM, +S1, +S2. absent: Systolic Murmur - GI/Abdominal Exam GI & Abdominal Exam: Soft. absent: Guarding, Rebound, Tenderness - Rectal Exam Rectal Exam: Deferred - Extremities Exam Extremities exam: Positive for: normal inspection. Negative for: calf tenderness - Neurological Exam Neurological exam: Alert, Oriented x3 - Psychiatric Exam Psychiatric exam: Normal Mood - Skin Skin Exam: Dry, Intact, Warm Additional comments: multiple small vesicles present over the face and upper extremity bilaterally; blanching and slightly erythematous; nontender Results - Vital Signs Recent Vital Signs: Last Vital Signs Temp 98.4 F 08/19/16 18:03 Pulse 71 08/19/16 20:49 Resp 18 08/19/16 20:49 BP 130/81 08/19/16 20:49 Pulse Ox 95 08/19/16 20:49 - Labs Result Diagrams: 08/19/16 18:35 08/19/16 18:35 Labs: Laboratory Results - last 24 hr 08/19/16 08/19/16 08/19/16 18:35 18:35 18:35 WBC 10.6 D RBC 4.29 Hgb 10.8 L Hct 32.0 L MCV 74.6 L MCH 25.2 MCHC 33.8 RDW 17.8 H Plt Count 207 MPV 9.0 Gran % 83.1 H Lymph % (Auto) 11.3 L [place] % (Auto) 5.0 Eos % (Auto) 0.3 L Baso % (Auto) 0.3 Gran # 8.79 H Lymph # 1.2 [place] # 0.5 Eos # 0.0 Baso # 0.03 PT INR APTT Sodium 131 L Potassium 3.5 L Chloride 93 L Carbon Dioxide 28 Anion Gap 14 BUN 6 L Creatinine 0.6 Est GFR ( Amer) > 60 Est GFR (Non-Af Amer) > 60 Random Glucose 112 H Calcium 8.2 L TIBC 402 Total Bilirubin 0.5 AST 55 ALT 31 Alkaline Phosphatase 99 Lactate Dehydrogenase 483 Total Creatine Kinase 64 Troponin I < 0.01 Total Protein 7.4 Albumin 3.7 Globulin 3.7 Albumin/Globulin Ratio 1.0 L Lipase 301 H Blood Type Antibody Screen BBK History Checked 08/19/16 08/19/16 18:35 18:35 WBC RBC Hgb Hct MCV MCH MCHC RDW Plt Count MPV Gran % Lymph % (Auto) [place] % (Auto) Eos % (Auto) Baso % (Auto) Gran # Lymph # [place] # Eos # Baso # PT 12.0 H INR 1.11 H APTT 34.5 H Sodium Potassium Chloride Carbon Dioxide Anion Gap BUN Creatinine Est GFR ( Amer) Est GFR (Non-Af Amer) Random Glucose Calcium TIBC Total Bilirubin AST ALT Alkaline Phosphatase Lactate Dehydrogenase Total Creatine Kinase Troponin I Total Protein Albumin Globulin Albumin/Globulin Ratio Lipase Blood Type O POSITIVE Antibody Screen Negative BBK History Checked Patient has bt - EKG Data EKG Interpreted by: Myself EKG shows normal: Sinus rhythm (SR @ 84bpm; no ST elevations or depressions noted) - Imaging and Cardiology Chest x-ray Status: Image reviewed by me (no infiltrates or effusions noted) Assessment & Plan - Assessment and Plan (Free Text) Assessment: 55 y/o male with a PMHx chronic Etoh abuse, COPD, chronic pancreatitis, gastritis who presents to the ED with a 1 day history of chest pain. Patient will be placed on telemetry observation for chest pain to rule out ACS. Plan: 1) Chest pain rule out ACS - will obtain an additional 2 troponin levels; initial is negative with no EKG changes and patient appears comfortable. Does not appear to be related to his coronaries at this time as he is comfortable and does not have any cardiac enzyme elevation despite his pain starting yesterday over 12hrs ago. Will avoid starting Aspirin unless patient develops EKG changes or nahum elevated cardiac enzymes given his recent upper GI bleed. Will check an FLP in the AM. Patient already given ASA 325mg x 1 in the ED prior to me seeing him. 2) Etoh abuse - patient admits to not taking librium and resuming his etoh because "he can't afford his meds." Encouraged to stop drinking and make better decisions with his finances; will place him on a banana bag IV; CIWA protocol; check etoh level and give ativan 2mg IV Q2H prn withdrawal. 3) COPD - stable; will place on duoneb prn sob 4) Electrolyte abnormalities - hyponatremia and hypokalemia; will replete Potassium with KCL po and sodium should improve with banana bag hydration 5) GI/DVT ppx - protonix 40mg po daily; Suman < 4, so mechanical SCD's
[2016-08-19] MEDS ORDERED: Multivitamin (MVI) 10 ML, Thiamine 100 MG, Folic Acid 1 MG in Sodium Chloride 0.9% 1,00... IV ONE (21:25)
[2016-08-19] MEDS ORDERED: Potassium Chloride 20 mEq/15 ml LIQ UD PO STA (21:30)
[2016-08-19] MEDS ORDERED: Albuterol-Ipratrop 3 mg / 0.5 (3 ml) UD IH PRN (21:32)
[2016-08-20] MEDS: Folic Acid 1 MG, Thiamine 100 MG, Multivitamin (MVI) 10 ML in Dextrose 5% In Water 1,00... IV SCH (05:54)
[2016-08-20] MEDS ORDERED: Pantoprazole 40 mg EC Tab PO SCH (06:30)
[2016-08-20 07:14] LABS: ADD MANUAL DIFF? NO
[2016-08-20 07:20] LABS: BASO # 0.03 K/mm3 (0.0-2.0); BASO % 0.4 % (0.0-3.0); EOS # 0.1 (0.0-0.7); EOS % 0.9 % (1.5-5.0); GRAN # 5.71 (1.4-6.5); HEMATOCRIT 33.6 % (42.0-52.0); LYMPH # 1.2 (1.2-3.4); LYMPH % 16.1 % (22.0-35.0); MEAN CELL VOLUME 74.3 fL (80.0-105.0); MEAN CORPUSCULAR HEMOGLOBIN 23.9 pg (25.0-35.0); MEAN CORPUSCULAR HGB CONC 32.1 g/dl (31.0-37.0); MEAN PLATELET VOLUME 9.1 fl (7.0-11.0); MONO # 0.7 (0.1-0.6); MONO % 8.6 % (1.0-6.0); PLATELET COUNT 173 10^3/uL (120.0-450.0); RED CELL DISTRIBUTION WIDTH 17.6 % (11.5-14.5); WHITE BLOOD COUNT 7.7 10^3/ul (4.5-11.0)
--- NOTE | 2016-08-20 07:35 | RAD ---
HISTORY: cough COMPARISON: 08/07/2016 FINDINGS: LUNGS: No active pulmonary disease. PLEURA: No significant pleural effusion identified, no pneumothorax apparent. CARDIOVASCULAR: Normal. OSSEOUS STRUCTURES: No significant abnormalities. VISUALIZED UPPER ABDOMEN: Normal. OTHER FINDINGS: None. IMPRESSION: No active disease.
[2016-08-20 07:47] LABS: ALKALINE PHOSPHATASE 99 U/L (38-133); ALT/SGPT 33 U/L (7-56); AST/SGOT 37 U/L (15-59); BILIRUBIN,TOTAL 0.7 mg/dL (0.2-1.3); BLOOD UREA NITROGEN 5 mg/dL (7-21); CALCIUM 8.6 mg/dL (8.4-10.5); CARBON DIOXIDE 29 mmol/L (21-33); CHLORIDE 101 mmol/L (98-107); GFR AFRICAN-AMERICAN > 60; GLUCOSE,RANDOM 114 mg/dL (70-110); POTASSIUM 3.8 mmol/L (3.6-5.0); SODIUM 136 mmol/L (132-148); TOTAL PROTEIN 7.1 g/dL (5.8-8.3)
[2016-08-20 07:51] LABS: TROPONIN I 0.01 ng/mL
[2016-08-20] MEDS ORDERED: Folic Acid 1 MG, Thiamine 100 MG, Multivitamin (MVI) 10 ML in Dextrose 5% In Water 1,00... IV SCH (08:03)
--- NOTE | 2016-08-20 10:09 | CP.PCM.PN ---
<Karma Cortez - Last Filed: 08/20/16 13:31> Subjective - Date & Time of Evaluation Date of Evaluation: 08/20/16 Time of Evaluation: 10:08 - Subjective Subjective: HOSPITAL PROGRESS NOTE Pt is seen and examined at bedside. No acute events overnight. Pt is resting comfortably and denies having any CP, SOB, abd pain, V/D/C, dysuria. Patient states that he experience epigastric abd pain starting 2 nights ago. The pain is intermittent and radiates to right side of chest and straight back. Pain feels like previous episodes of pancreatitis. Pain is associated with lightheadedness and diaphoresis and nausea. Patient's last drink was yesterday morning. Patient denies having any CP, SOB, abd pain N/v/D/C, diaphoresis or tremors currently. Objective - Vital Signs/Intake and Output Vital Signs (last 24 hours): Temp Pulse Resp BP Pulse Ox 97.5 F L 87 22 133/83 97 08/20/16 08:56 08/20/16 08:56 08/20/16 08:56 08/20/16 08:56 08/20/16 08:56 Intake and Output: 08/20/16 08/20/16 06:59 18:59 Intake Total 120 Output Total 100 Balance 20 - Medications Medications: Current Medications Folic Acid 1 mg/ Thiamine HCl 100 mg/ Multivitamins/Vitamin C 10 ml/ Dextrose 1 ,011.2 mls @ 200 mls/hr IV .Q5H4M [facility] Lorazepam (Ativan) 2 mg IVP Q2H PRN; Protocol PRN Reason: Agitation Ondansetron HCl (Zofran Inj) 4 mg IVP Q6H PRN PRN Reason: Nausea/Vomiting Last Admin: 08/20/16 05:52 Dose: 4 mg Pantoprazole Sodium (Protonix Ec Tab) 40 mg PO 0630 SOPHIA Last Admin: 08/20/16 05:52 Dose: 40 mg - Labs Labs: 08/20/16 06:45 08/20/16 06:45 PT 12.0 Seconds (9.9-11.8) H 08/19/16 18:35 INR 1.11 (0.93-1.08) H 08/19/16 18:35 APTT 34.5 Seconds (23.7-30.8) H 08/19/16 18:35 - Constitutional Appears: Non-toxic, No Acute Distress - Head Exam Head Exam: ATRAUMATIC - Eye Exam Eye Exam: EOMI - ENT Exam ENT Exam: Mucous Membranes Moist - Respiratory Exam Respiratory Exam: Clear to Ausculation Bilateral. absent: Accessory Muscle Use , Rales, Rhonchi, Wheezes, Respiratory Distress - Cardiovascular Exam Cardiovascular Exam: REGULAR RHYTHM, +S1, +S2. absent: Gallop, Rubs, Murmur - GI/Abdominal Exam GI & Abdominal Exam: Soft, Tenderness (epigastric region ), Normal Bowel Sounds. absent: Distended, Firm, Guarding, Rigid - Extremities Exam Extremities Exam: absent: Pedal Edema, Tenderness - Neurological Exam Neurological Exam: Alert, Awake, Oriented x3 - Psychiatric Exam Psychiatric exam: Normal Affect, Normal Mood - Skin Skin Exam: Dry, Intact, Normal Color, Warm Assessment and Plan - Assessment and Plan (Free Text) Assessment: 55 y/o male with a PMHx chronic Etoh abuse, COPD, chronic pancreatitis, gastritiswho is admitted for epigastric abdominal pain likely 2/2 pancreatitis. Patient will be placed on telemetry observation for chest pain to rule out ACS and ETOH withdrawal symptoms. EKG on admission showed NSR and no ST changes. Troponin x 3 are negative. Lipase on admission was 301. LDH was 483. AST was 55, glucose was 112, WBC was 10.6. According to Tyrone's criteria , low mortality risk on admission. Echo from 04/2016 was normal with EF of 67%. Plan: 1) Acute pancreatitis - NPO - Banana bag 200 cc - Pain management with morphine prn - Will start CLD for dinner and see how patient tolerates - Zofran prn - Protonix 40 IVP QD 2) Etoh abuse - Discussed risks of ETOH abuse and recommended cessation - Banana bag - Ativan prn - CIWA protocol 3) COPD - stable 4) Electrolyte abnormalities - hyponatremia and hypokalemia; will replete Potassium with KCL po and sodium should improve with banana bag hydration 5) GI/DVT ppx - protonix; Suman < 4, so mechanical SCD's Case is discussed with attending, Dr. Goel <Alaina Goel - Last Filed: 08/20/16 15:13> Objective - Vital Signs/Intake and Output Vital Signs (last 24 hours): Temp Pulse Resp BP Pulse Ox 97.5 F L 87 22 133/83 97 08/20/16 08:56 08/20/16 08:56 08/20/16 08:56 08/20/16 08:56 08/20/16 08:56 Intake and Output: 08/20/16 08/20/16 06:59 18:59 Intake Total 540 Output Total 400 Balance 140 - Medications Medications: Current Medications Folic Acid 1 mg/ Thiamine HCl 100 mg/ Multivitamins/Vitamin C 10 ml/ Dextrose 1 ,011.2 mls @ 200 mls/hr IV .Q5H4M SOP[facility]IA Lorazepam (Ativan) 2 mg IVP Q2H PRN; Protocol PRN Reason: Agitation Last Admin: 08/20/16 13:33 Dose: 2 mg Ondansetron HCl (Zofran Inj) 4 mg IVP Q6H PRN PRN Reason: Nausea/Vomiting Last Admin: 08/20/16 13:22 Dose: 4 mg Pantoprazole Sodium (Protonix Inj) 40 mg IVP DAILY [facility] Last Admin: 08/20/16 10:30 Dose: 40 mg - Labs Labs: PT 12.0 Seconds (9.9-11.8) H 08/19/16 18:35 INR 1.11 (0.93-1.08) H 08/19/16 18:35 APTT 34.5 Seconds (23.7-30.8) H 08/19/16 18:35 Attending/Attestation - Attestation I have personally seen and examined this patient.: Yes I have fully participated in the care of the patient.: Yes I have reviewed all pertinent clinical information, including history, physical exam and plan: Yes Notes (Text): 08/20/16 15:11 attending note; Patient seen and examined With the resident. patient is complaining epigastric discomfort. denies any chest pain or shortness of breath. Complaining of nausea but no vomiting. Chronic alcohol abuse with pancreatitis; nothing by mouth. Continue IV banana bag. will start Clear liquid diet tonight if no vomiting. history of gastritis and esophagitis: Continue Protonix. complete alcohol cessation is strongly advised. Noncompliance with follow-up. Upon discharge the patient will follow-up with [facility] [place] clinic.
[2016-08-20 18:52] VITALS: RESP 20
--- NOTE | 2016-08-21 01:47 | CARD ---
APPROVED REPORT EKG Measurement Heart [id number] <Conclusion> Normal sinus rhythm Low voltage QRS Borderline ECG
[2016-08-21 07:05] LABS: ADD MANUAL DIFF? NO
[2016-08-21 07:10] LABS: BASO # 0.04 K/mm3 (0.0-2.0); BASO % 0.7 % (0.0-3.0); EOS # 0.6 (0.0-0.7); EOS % 10.9 % (1.5-5.0); GRAN # 3.15 (1.4-6.5); GRAN % 55.1 % (50.0-68.0); HEMATOCRIT 34.3 % (42.0-52.0); LYMPH # 1.4 (1.2-3.4); MEAN CELL VOLUME 75.4 fL (80.0-105.0); MEAN CORPUSCULAR HEMOGLOBIN 24.2 pg (25.0-35.0); MEAN CORPUSCULAR HGB CONC 32.1 g/dl (31.0-37.0); MEAN PLATELET VOLUME 9.1 fl (7.0-11.0); MONO # 0.5 (0.1-0.6); MONO % 9.3 % (1.0-6.0); PLATELET COUNT 159 10^3/uL (120.0-450.0); RED CELL DISTRIBUTION WIDTH 17.5 % (11.5-14.5); WHITE BLOOD COUNT 5.7 10^3/ul (4.5-11.0)
--- NOTE | 2016-08-21 09:32 | CP.PCM.PN ---
<Karma Cortez - Last Filed: 08/21/16 09:25> Subjective - Date & Time of Evaluation Date of Evaluation: 08/21/16 Time of Evaluation: 09:25 - Subjective Subjective: HOSPITALISTS PROGRESS NOTE Pt is seen and examined at bedside. No acute events overnight. Patient is resting comfortably. He tolerated CLD for dinner yesterday. Denies having any N/V/D/C, CP, SOB, F/C. Patient is requesting solid foods. Patient denies having any tremors, hallucinations, diaphoresis. Objective - Vital Signs/Intake and Output Vital Signs (last 24 hours): Temp Pulse Resp BP Pulse Ox 97.7 F 51 L 20 142/85 96 08/21/16 08:27 08/21/16 08:27 08/21/16 08:27 08/21/16 08:27 08/21/16 08:27 Intake and Output: 08/21/16 08/21/16 06:59 18:59 Intake Total 3600 Output Total 3400 Balance 200 - Medications Medications: Current Medications Folic Acid 1 mg/ Thiamine HCl 100 mg/ Multivitamins/Vitamin C 10 ml/ Dextrose 1 ,011.2 mls @ 100 mls/hr IV .Q10H7M SOPHIA Lorazepam (Ativan) 2 mg PO Q2H PRN PRN Reason: Agitation Ondansetron HCl (Zofran Inj) 4 mg IVP Q6H PRN PRN Reason: Nausea/Vomiting Last Admin: 08/20/16 13:22 Dose: 4 mg Pantoprazole Sodium (Protonix Inj) 40 mg IVP DAILY [facility] Last Admin: 08/20/16 10:30 Dose: 40 mg - Labs Labs: 08/21/16 06:40 PT 12.0 Seconds (9.9-11.8) H 08/19/16 18:35 INR 1.11 (0.93-1.08) H 08/19/16 18:35 APTT 34.5 Seconds (23.7-30.8) H 08/19/16 18:35 - Constitutional Appears: Non-toxic, No Acute Distress - Head Exam Head Exam: ATRAUMATIC - Eye Exam Eye Exam: EOMI - ENT Exam ENT Exam: Mucous Membranes Moist - Respiratory Exam Respiratory Exam: Clear to Ausculation Bilateral, NORMAL BREATHING PATTERN. absent: Accessory Muscle Use, Rales, Rhonchi, Wheezes, Respiratory Distress - Cardiovascular Exam Cardiovascular Exam: REGULAR RHYTHM, +S1, +S2. absent: Diastolic murmur, Gallop , Rubs, Murmur - GI/Abdominal Exam GI & Abdominal Exam: Soft, Normal Bowel Sounds. absent: Distended, Firm, Guarding, Rigid, Tenderness - Extremities Exam Extremities Exam: absent: Pedal Edema, Tenderness - Neurological Exam Neurological Exam: Alert, Awake, Oriented x3 - Psychiatric Exam Psychiatric exam: Normal Affect, Normal Mood - Skin Skin Exam: Dry, Intact, Normal Color, Warm Assessment and Plan - Assessment and Plan (Free Text) Assessment: 55 y/o male with a PMHx chronic ETOH abuse, COPD, chronic pancreatitis, gastritis who is admitted for epigastric abdominal pain likely 2/2 pancreatitis. Patient will be placed on telemetry observation for chest pain to rule out ACS and ETOH withdrawal symptoms. EKG on admission showed NSR and no ST changes. Plan: 1) Acute pancreatitis - Liquid diet. will advance as patient tolerates - Pain management with morphine prn - Banana bag at 100 cc - Zofran prn - Protonix 40 IVP QD 2) Etoh abuse - Discussed risks of ETOH abuse and recommended cessation - Banana bag - Ativan PO prn - CIWA protocol 3) COPD - stable 4) Electrolyte abnormalities - Will monitor and replace as needed 5) GI/DVT ppx - protonix; Suman < 4, so mechanical SCD's Case is discussed with attending, Dr. Goel <Alaina Goel - Last Filed: 08/21/16 17:02> Objective - Vital Signs/Intake and Output Vital Signs (last 24 hours): Temp Pulse Resp BP Pulse Ox 97.7 F 51 L 20 142/85 96 08/21/16 08:27 08/21/16 08:27 08/21/16 08:27 08/21/16 08:27 08/21/16 08:27 Intake and Output: 08/21/16 08/21/16 06:59 18:59 Intake Total 3600 Output Total 3400 Balance 200 - Medications Medications: Current Medications Folic Acid 1 mg/ Thiamine HCl 100 mg/ Multivitamins/Vitamin C 10 ml/ Dextrose 1 ,011.2 mls @ 100 mls/hr IV .Q10H7M [facility] Last Admin: 08/21/16 16:11 Dose: 100 mls/hr Lorazepam (Ativan) 2 mg PO Q2H PRN PRN Reason: Agitation Last Admin: 08/21/16 09:47 Dose: 2 mg Ondansetron HCl (Zofran Inj) 4 mg IVP Q6H PRN PRN Reason: Nausea/Vomiting Last Admin: 08/20/16 13:22 Dose: 4 mg Pantoprazole Sodium (Protonix Inj) 40 mg IVP DAILY [facility] Last Admin: 08/21/16 09:43 Dose: 40 mg - Labs Labs: 08/21/16 06:40 08/21/16 10:00 PT 12.0 Seconds (9.9-11.8) H 08/19/16 18:35 INR 1.11 (0.93-1.08) H 08/19/16 18:35 APTT 34.5 Seconds (23.7-30.8) H 08/19/16 18:35 Attending/Attestation - Attestation I have personally seen and examined this patient.: Yes I have fully participated in the care of the patient.: Yes I have reviewed all pertinent clinical information, including history, physical exam and plan: Yes Notes (Text): 08/21/16 17:01 attending note; Patient seen and examined With the resident. patient is complaining epigastric discomfort. denies any chest pain or shortness of breath. Complaining of nausea but no vomiting. Chronic alcohol abuse with pancreatitis; started on clear liquid diet. Advance to full diet as tolerated. Continue IV banana bag. history of gastritis and esophagitis: Continue Protonix. complete alcohol cessation is strongly advised. Noncompliance with follow-up. Upon discharge the patient will [place] [facility]
[2016-08-21 10:19] LABS: ALB/GLOB RATIO 0.9 (1.1-1.8); ALKALINE PHOSPHATASE 100 U/L (38-133); ALT/SGPT 32 U/L (7-56); AST/SGOT 38 U/L (15-59); BILIRUBIN,TOTAL 0.7 mg/dL (0.2-1.3); BLOOD UREA NITROGEN 6 mg/dL (7-21); CALCIUM 8.6 mg/dL (8.4-10.5); CARBON DIOXIDE 27 mmol/L (21-33); CHLORIDE 99 mmol/L (98-107); GFR AFRICAN-AMERICAN > 60; GLUCOSE,RANDOM 103 mg/dL (70-110); POTASSIUM 3.4 mmol/L (3.6-5.0); SODIUM 135 mmol/L (132-148); TOTAL PROTEIN 6.9 g/dL (5.8-8.3)
[2016-08-21] MEDS ORDERED: Potassium Chloride 20 mEq ER Tab PO ONE (10:23)
[2016-08-21] MEDS: Folic Acid 1 MG, Thiamine 100 MG, Multivitamin (MVI) 10 ML in Dextrose 5% In Water 1,00... IV SCH (16:11)
[2016-08-22] MEDS: Folic Acid 1 MG, Thiamine 100 MG, Multivitamin (MVI) 10 ML in Dextrose 5% In Water 1,00... IV SCH (01:50)
[2016-08-22] MEDS ORDERED: Pantoprazole 40 mg EC Tab PO SCH (07:30)
[2016-08-22 08:20] LABS: ADD MANUAL DIFF? NO
[2016-08-22 08:22] VITALS: BP 115/69; PULSE 71; TEMP 98.6; O2SAT 100
[2016-08-22 08:27] LABS: BASO # 0.02 K/mm3 (0.0-2.0); BASO % 0.3 % (0.0-3.0); EOS # 1.2 (0.0-0.7); EOS % 18.8 % (1.5-5.0); GRAN # 3.14 (1.4-6.5); GRAN % 48.8 % (50.0-68.0); HEMATOCRIT 35.3 % (42.0-52.0); LYMPH # 1.4 (1.2-3.4); LYMPH % 22.1 % (22.0-35.0); MEAN CELL VOLUME 75.8 fL (80.0-105.0); MEAN CORPUSCULAR HEMOGLOBIN 24.2 pg (25.0-35.0); MEAN PLATELET VOLUME 9.5 fl (7.0-11.0); MONO # 0.6 (0.1-0.6); PLATELET COUNT 201 10^3/uL (120.0-450.0); RED CELL DISTRIBUTION WIDTH 18.3 % (11.5-14.5); WHITE BLOOD COUNT 6.4 10^3/ul (4.5-11.0)
[2016-08-22 08:39] LABS: BLOOD UREA NITROGEN 5 mg/dL (7-21); CALCIUM 8.7 mg/dL (8.4-10.5); CARBON DIOXIDE 27 mmol/L (21-33); CHLORIDE 101 mmol/L (98-107); GFR AFRICAN-AMERICAN > 60; GLUCOSE,RANDOM 104 mg/dL (70-110); POTASSIUM 3.7 mmol/L (3.6-5.0); SODIUM 135 mmol/L (132-148)
[2016-08-22] MEDS ORDERED: Multivitamin With Minerals Tab PO SCH (10:00)
--- NOTE | 2016-08-22 14:23 | CP.PCM.DIS ---
<Karma Cortez - Last Filed: 08/22/16 15:35> Provider - Provider Date of Admission: 08/20/16 12:30 Attending physician: Alaina Goel MD Primary care physician: Merlin Alexander MD Time Spent in preparation of Discharge (in minutes): 45 Diagnosis - Discharge Diagnosis (1) Alcohol abuse Status: Chronic (2) Pancreatitis Status: Chronic Hospital Course - Lab Results Lab Results: Most Recent Lab Values WBC 6.4 10^3/ul (4.5-11.0) 08/22/16 07:30 RBC 4.66 10^6/uL (3.5-6.1) 08/22/16 07:30 Hgb 11.3 gm/dL (14.0-18.0) L 08/22/16 07:30 Hct 35.3 % (42.0-52.0) L 08/22/16 07:30 MCV 75.8 fL (80.0-105.0) L 08/22/16 07:30 MCH 24.2 pg (25.0-35.0) L 08/22/16 07:30 MCHC 32.0 g/dl (31.0-37.0) 08/22/16 07:30 RDW 18.3 % (11.5-14.5) H 08/22/16 07:30 Plt Count 201 10^3/uL (120.0-450.0) 08/22/16 07:30 MPV 9.5 fl (7.0-11.0) 08/22/16 07:30 Gran % 48.8 % (50.0-68.0) L 08/22/16 07:30 Lymph % (Auto) 22.1 % (22.0-35.0) 08/22/16 07:30 Mason % (Auto) 10.0 % (1.0-6.0) H 08/22/16 07:30 Eos % (Auto) 18.8 % (1.5-5.0) H 08/22/16 07:30 Baso % (Auto) 0.3 % (0.0-3.0) 08/22/16 07:30 Gran # 3.14 (1.4-6.5) 08/22/16 07:30 Lymph # 1.4 (1.2-3.4) 08/22/16 07:30 Mason # 0.6 (0.1-0.6) 08/22/16 07:30 Eos # 1.2 (0.0-0.7) H 08/22/16 07:30 Baso # 0.02 K/mm3 (0.0-2.0) 08/22/16 07:30 PT 12.0 Seconds (9.9-11.8) H 08/19/16 18:35 INR 1.11 (0.93-1.08) H 08/19/16 18:35 APTT 34.5 Seconds (23.7-30.8) H 08/19/16 18:35 Sodium 135 mmol/L (132-148) 08/22/16 07:30 Potassium 3.7 mmol/L (3.6-5.0) 08/22/16 07:30 Chloride 101 mmol/L (98-107) 08/22/16 07:30 Carbon Dioxide 27 mmol/L (21-33) 08/22/16 07:30 Anion Gap 11 (10-20) 08/22/16 07:30 BUN 5 mg/dL (7-21) L 08/22/16 07:30 Creatinine 0.7 mg/dL (0.5-1.4) 08/22/16 07:30 Est GFR ( Amer) > 60 08/22/16 07:30 Est GFR (Non-Af Amer) > 60 08/22/16 07:30 Random Glucose 104 mg/dL (70-110) 08/22/16 07:30 Calcium 8.7 mg/dL (8.4-10.5) 08/22/16 07:30 TIBC 402 ug/dL (261-462) 08/19/16 18:35 Transferrin 311.69 mg/dL (206-381) 08/19/16 18:35 Ferritin 19.9 ng/mL 08/19/16 18:35 Total Bilirubin 0.7 mg/dL (0.2-1.3) 08/21/16 10:00 AST 38 U/L (15-59) 08/21/16 10:00 ALT 32 U/L (7-56) 08/21/16 10:00 Alkaline Phosphatase 100 U/L (38-133) 08/21/16 10:00 Lactate Dehydrogenase 483 U/L (333-699) 08/19/16 18:35 Total Creatine Kinase 64 U/L (35-230) 08/19/16 18:35 Troponin I 0.01 ng/mL 08/20/16 06:45 Total Protein 6.9 g/dL (5.8-8.3) 08/21/16 10:00 Albumin 3.3 g/dL (3.0-4.8) 08/21/16 10:00 Globulin 3.6 gm/dL 08/21/16 10:00 Albumin/Globulin Ratio 0.9 (1.1-1.8) L 08/21/16 10:00 Lipase 301 U/L (23-300) H 08/19/16 18:35 Urine Opiates Screen Negative (NEGATIVE) 08/19/16 21:50 Urine Methadone Screen Negative (NEGATIVE) 08/19/16 21:50 Ur Barbiturates Screen Negative (NEGATIVE) 08/19/16 21:50 Ur Phencyclidine Scrn Negative (NEGATIVE) 08/19/16 21:50 Ur Amphetamines Screen Negative (NEGATIVE) 08/19/16 21:50 U Benzodiazepines Scrn Positive (NEGATIVE) H 08/19/16 21:50 U Oth Cocaine Metabols Negative (NEGATIVE) 08/19/16 21:50 U Cannabinoids Screen Negative (NEGATIVE) 08/19/16 21:50 Alcohol, Quantitative 161 mg/dL (0-10) H 08/19/16 22:10 Blood Type O POSITIVE 08/19/16 18:35 Antibody Screen Negative 08/19/16 18:35 BBK History Checked Patient has bt 08/19/16 18:35 - Hospital Course Hospital Course: 55 year old male with past medical history of COPD, ETOH abuse, erosive gastritis, chronic pancreatitis, history of right inguinal incarcerated hernia repair and orchiectomy is admitted to hospital for epigastric abdominal pain. ACS was ruled out with 3 normal troponins and no ST changes seen on EKG. On admission, lipase was elevated. Patient was made NPO, given aggressive IV hydration and protonix. Patients symptoms improved and diet was slowly advanced. Patient was also placed on CIWA protocol and Ativan for ETOH withdrawal. Patients symptoms improved and he was deemed safe for discharge. Patient was given scripts for the following medications: protonix 40 mg po qd # 30 tabs and multivitamins #30 tabs. - Date & Time of H&P Date of H&P: 08/22/16 Time of H&P: 14:21 Discharge Exam - Head Exam Head Exam: ATRAUMATIC - Eye Exam Eye Exam: EOMI - ENT Exam ENT Exam: Mucous Membranes Moist - Respiratory Exam Respiratory Exam: Clear to PA & Lateral, NORMAL BREATHING PATTERN. absent: Rales, Rhonchi, Wheezes - Cardiovascular Exam Cardiovascular Exam: REGULAR RHYTHM, +S1, +S2. absent: Diastolic murmur, Gallop , Rubs, Systolic Murmur - GI/Abdominal Exam GI & Abdominal Exam: Normal Bowel Sounds, Soft, Unremarkable. absent: Distended , Firm, Guarding, Rigid, Tenderness - Extremities Exam Additional comments: no edema or tenderness - Neurological Exam Neurological exam: Alert, Oriented x3 - Psychiatric Exam Psychiatric exam: Normal Affect, Normal Mood - Skin Skin Exam: Dry, Intact, Normal Color, Warm Discharge Plan - Discharge Medications Prescriptions: Multimineral/Multivitamin [Therapeutic-M Tab] 1 tab PO DAILY #30 tab Pantoprazole [Protonix EC Tab] 40 mg PO ACB #30 ect - Follow Up Plan Condition: FAIR Disposition: HOME/ ROUTINE Instructions: Gastritis (DC), Pancreatitis (DC), Abuse of Alcohol (DC) Additional Instructions: Patient is to follow up with PMD of his choice. If no PMD, patient [place] [facility] [place] This is explained to patient. Discussed the risks of ETOH abuse and recommended cessation. Patient is discharged on the following medications: Multivitamin #30 tabs, and protonix 40 mg po qd #30. He is given scripts for the medications. Referrals: Merlin Alexander MD [Primary Care Provider] - <Alaina Goel - Last Filed: 08/22/16 15:59> Provider - Provider Date of Admission: 08/20/16 12:30 Attending physician: Alaina Goel MD Primary care physician: Merlin Alexander MD Hospital Course - Lab Results Lab Results: Most Recent Lab Values WBC 6.4 10^3/ul (4.5-11.0) 08/22/16 07:30 RBC 4.66 10^6/uL (3.5-6.1) 08/22/16 07:30 Hgb 11.3 gm/dL (14.0-18.0) L 08/22/16 07:30 Hct 35.3 % (42.0-52.0) L 08/22/16 07:30 MCV 75.8 fL (80.0-105.0) L 08/22/16 07:30 MCH 24.2 pg (25.0-35.0) L 08/22/16 07:30 MCHC 32.0 g/dl (31.0-37.0) 08/22/16 07:30 RDW 18.3 % (11.5-14.5) H 08/22/16 07:30 Plt Count 201 10^3/uL (120.0-450.0) 08/22/16 07:30 MPV 9.5 fl (7.0-11.0) 08/22/16 07:30 Gran % 48.8 % (50.0-68.0) L 08/22/16 07:30 Lymph % (Auto) 22.1 % (22.0-35.0) 08/22/16 07:30 Mason % (Auto) 10.0 % (1.0-6.0) H 08/22/16 07:30 Eos % (Auto) 18.8 % (1.5-5.0) H 08/22/16 07:30 Baso % (Auto) 0.3 % (0.0-3.0) 08/22/16 07:30 Gran # 3.14 (1.4-6.5) 08/22/16 07:30 Lymph # 1.4 (1.2-3.4) 08/22/16 07:30 Mason # 0.6 (0.1-0.6) 08/22/16 07:30 Eos # 1.2 (0.0-0.7) H 08/22/16 07:30 Baso # 0.02 K/mm3 (0.0-2.0) 08/22/16 07:30 PT 12.0 Seconds (9.9-11.8) H 08/19/16 18:35 INR 1.11 (0.93-1.08) H 08/19/16 18:35 APTT 34.5 Seconds (23.7-30.8) H 08/19/16 18:35 Sodium 135 mmol/L (132-148) 08/22/16 07:30 Potassium 3.7 mmol/L (3.6-5.0) 08/22/16 07:30 Chloride 101 mmol/L (98-107) 08/22/16 07:30 Carbon Dioxide 27 mmol/L (21-33) 08/22/16 07:30 Anion Gap 11 (10-20) 08/22/16 07:30 BUN 5 mg/dL (7-21) L 08/22/16 07:30 Creatinine 0.7 mg/dL (0.5-1.4) 08/22/16 07:30 Est GFR ( Amer) > 60 08/22/16 07:30 Est GFR (Non-Af Amer) > 60 08/22/16 07:30 Random Glucose 104 mg/dL (70-110) 08/22/16 07:30 Calcium 8.7 mg/dL (8.4-10.5) 08/22/16 07:30 TIBC 402 ug/dL (261-462) 08/19/16 18:35 Transferrin 311.69 mg/dL (206-381) 08/19/16 18:35 Ferritin 19.9 ng/mL 08/19/16 18:35 Total Bilirubin 0.7 mg/dL (0.2-1.3) 08/21/16 10:00 AST 38 U/L (15-59) 08/21/16 10:00 ALT 32 U/L (7-56) 08/21/16 10:00 Alkaline Phosphatase 100 U/L (38-133) 08/21/16 10:00 Lactate Dehydrogenase 483 U/L (333-699) 08/19/16 18:35 Total Creatine Kinase 64 U/L (35-230) 08/19/16 18:35 Troponin I 0.01 ng/mL 08/20/16 06:45 Total Protein 6.9 g/dL (5.8-8.3) 08/21/16 10:00 Albumin 3.3 g/dL (3.0-4.8) 08/21/16 10:00 Globulin 3.6 gm/dL 08/21/16 10:00 Albumin/Globulin Ratio 0.9 (1.1-1.8) L 08/21/16 10:00 Lipase 301 U/L (23-300) H 08/19/16 18:35 Urine Opiates Screen Negative (NEGATIVE) 08/19/16 21:50 Urine Methadone Screen Negative (NEGATIVE) 08/19/16 21:50 Ur Barbiturates Screen Negative (NEGATIVE) 08/19/16 21:50 Ur Phencyclidine Scrn Negative (NEGATIVE) 08/19/16 21:50 Ur Amphetamines Screen Negative (NEGATIVE) 08/19/16 21:50 U Benzodiazepines Scrn Positive (NEGATIVE) H 08/19/16 21:50 U Oth Cocaine Metabols Negative (NEGATIVE) 08/19/16 21:50 U Cannabinoids Screen Negative (NEGATIVE) 08/19/16 21:50 Alcohol, Quantitative 161 mg/dL (0-10) H 08/19/16 22:10 Blood Type O POSITIVE 08/19/16 18:35 Antibody Screen Negative 08/19/16 18:35 BBK History Checked Patient has bt 08/19/16 18:35 Attending/Attestation - Attestation I have personally seen and examined this patient.: Yes I have fully participated in the care of the patient.: Yes I have reviewed all pertinent clinical information, including history, physical exam and plan: Yes Notes (Text): 08/22/16 15:58 attending note; Patient seen and examined With the resident. patient is complaining epigastric discomfort. denies any chest pain or shortness of breath. tolerating diet well. Ambulating fine. Chronic alcohol abuse with pancreatitis; treated with IV banana bag. Complete alcohol cessation is strongly advised. history of gastritis and esophagitis: Continue Protonix. Noncompliance with follow-up. Upon discharge the patient will [place] [facility] [place]. diagnosis; Abdominal pain Pancreatitis Alcohol abuse Noncompliance with follow up Gastritis
== END 2016-08-22 15:46 | disposition home or self-care (01) | DRG 204 ==
LOC: ED 17:58 → ERH 20:50 → 3RSO 22:55 → OBSVTOIN 08-20 12:30
PROVIDERS: ADMIT Internal Medicine; ATTEND Internal Medicine
DX: K85.90 Acute pancreatitis without necrosis or infection, unspecified (principal); E87.1 Hypo-osmolality and hyponatremia; F10.239 Alcohol dependence with withdrawal, unspecified; J44.9 Chronic obstructive pulmonary disease, unspecified; E87.6 Hypokalemia; K86.1 Other chronic pancreatitis; R07.89 Other chest pain; K29.60 Other gastritis without bleeding; K20.9 Esophagitis, unspecified; Z91.19 Patient's noncompliance with other medical treatment and regimen; Z80.41 Family history of malignant neoplasm of ovary; Z80.0 Family history of malignant neoplasm of digestive organs

== ENCOUNTER 2016-08-27 14:46 | Inpatient (IN) | payer MEDICAID, OTHER ==
[2016-08-27 14:46] VITALS: BMI 25.8
--- NOTE | 2016-08-27 14:52 | ED PDOC ---
Arrival/HPI - General Time Seen by Provider: 08/27/16 14:50 Historian: Patient - History of Present Illness Narrative History of Present Illness (Text): 08/27/16 14:51 55 y/o male, pmh including erosive gastritis/chronic pancreatitis/copd/chronic T1 compression fracture/htn, penicillin allergy, c/o abdominal pain with nausea/ vomiting x 2 days. Pt. stated that he is chronic alcoholic, history of pancreatitis with GI bleed due to the erosive gastritis, started to have coffee brown vomiting for the past 2 days, no chest pain or shortness of breath, no palpitation, no numbness or tingling, no dizziness, no other medical or psychological complaints. Past Medical History - Provider Review Nursing Documentation Reviewed: Yes - Past History Past History: No Previous - Infectious Disease Hx of Infectious Diseases: None - Tetanus Immunization Tetanus Immunization: Unknown - Cardiac Hx Cardiac Disorders: Yes Hx Hypertension: Yes - Pulmonary Hx Respiratory Disorders: Yes Hx Asthma: Yes Hx Chronic Obstructive Pulmonary Disease (COPD): Yes - Neurological Hx Neurological Disorder: No HX Cerebrovascular Accident: No - HEENT Hx HEENT Disorder: No - Renal Hx Renal Disorder: No - Endocrine/Metabolic Hx Endocrine Disorders: Yes Hx Diabetes Mellitus Type 2: Yes - Hematological/Oncological Hx Blood Disorders: Yes Hx Cancer: Yes (pt does not specify) - Integumentary Hx Dermatological Disorder: No - Musculoskeletal/Rheumatological Hx Musculoskeletal Disorders: Yes Hx Falls: Yes - Gastrointestinal Hx Gastrointestinal Disorders: Yes Hx Gastroesophageal Reflux: Yes - Genitourinary/Gynecological Hx Genitourinary Disorders: No - Psychiatric Hx Psychophysiologic Disorder: Yes (ETOH) Hx Anxiety: Yes Hx Depression: Yes Hx Substance Use: Yes Other/Comment: Alcohol Abuse - Surgical History Hx Cardiac Catheterization: No Hx Coronary Stent: No Hx Musculoskeletal Surgery: Yes (Left hand surgery) - Anesthesia Hx Anesthesia: Yes - Suicidal Assessment Feels Threatened In Home Enviroment: No Family/Social History - Physician Review Nursing Documentation Reviewed: Yes Family/Social History: Unknown Family HX Smoking Status: Heavy Smoker > 10 Cigarettes Daily Hx Alcohol Use: Yes Amount per day: 10 Hx Substance Use: Yes Hx Substance Use Treatment: No Allergies/Home Meds Allergies/Adverse Reactions: Allergies Penicillins Allergy (Verified 08/27/16 15:04) RASH Home Medications: Home Meds Medication Instructions Recorded Confirmed No Known Home Med 08/27/16 08/27/16 Review of Systems - Review of Systems Constitutional: absent: Fatigue, Fevers Eyes: absent: Vision Changes ENT: absent: Hearing Changes Respiratory: absent: SOB, Cough Cardiovascular: absent: Chest Pain Gastrointestinal: Abdominal Pain, Nausea, Vomiting. absent: Diarrhea Musculoskeletal: absent: Arthralgias, Myalgias Skin: absent: Rash, Pruritis, Skin Lesions Neurological: absent: Headache, Dizziness, Focal Weakness, Gait Changes Physical Exam Vital Signs Temp Pulse Resp BP Pulse Ox 08/27/16 15:02 98.7 F 76 16 105/77 97 - Systems Exam Head: Present: Atraumatic, Normocephalic Pupils: Present: PERRL Extroacular Muscles: Present: EOMI Conjunctiva: Present: Normal Mouth: Present: Moist Mucous Membranes Neck: Present: Normal Range of Motion Respiratory/Chest: Present: Clear to Auscultation, Good Air Exchange. No: Respiratory Distress, Accessory Muscle Use Cardiovascular: Present: Regular Rate and Rhythm, Normal S1, S2. No: Murmurs Abdomen: Present: Tenderness (epigastric tenderness, negative carter, no cva tenderness, no flank or abdominal discoloration), Normal Bowel Sounds. No: Distention, Peritoneal Signs Back: Present: Normal Inspection Upper Extremity: Present: Normal Inspection. No: Cyanosis, Edema Lower Extremity: Present: Normal Inspection. No: Edema Neurological: Present: GCS=15, Speech Normal, Motor Func Grossly Intact, Gait Normal, Memory Normal Skin: Present: Warm, Dry, Normal Color. No: Rashes Psychiatric: Present: Alert, Oriented x 3, Normal Insight, Normal Concentration Medical Decision Making ED Course and Treatment: 08/27/16 15:12 -labs/lipase/ua/type and screen -ekg -chest x-ray -IV banana bag/protonix/zofran -observe and reassess but likely admit the patient. 08/27/16 16:41 -EKG: NSR @ 83 BPM, no ST elevation or depression, no T wave inversion, compared with previous ekg. -Chest x-ray show no active disease -Labs shows the following: -Lipase 304, -Hgb 10.9 from 11.3 (08/22/2016), -etoh 279 -Urinalysis show no acute UTI. -I am clinically concerning about the upper GI bleed from the history of erosive gastritis and he had blood transfusion befre with 0.4 hgb drop for the past 5 days. -I will observe/admit the patient overnight with the GI consult and repeat cbc. -I discussed with the patient and he agreed to be admitted. 08/27/16 16:49 -I discussed the labs and radiology results with Dr. Narvaez, clinically concerning about the risk for alcohol withdrawal with the GI bleed, will placed the patient in tele for admission. -I discussed with Dr. Martinez about the case and he will put in the admission order. -Alcohol withdrawal order set order. - Lab Interpretations Lab Results: 08/27/16 16:05 08/27/16 16:05 Lab Results 08/27/16 16:30: Urine Color Yellow, Urine Appearance Clear, Urine pH 6.5, Ur Specific [place] 1.010, Urine Protein Negative, Urine Glucose (UA) Negative, Urine Ketones Negative, Urine Blood Negative, Urine Nitrate Negative, Urine Bilirubin Negative, Urine Urobilinogen 0.2, Ur Leukocyte Esterase Negative 08/27/16 16:05: Alcohol, Quantitative 269 H 08/27/16 16:05: Salicylates < 1 L, Acetaminophen < 10.0 L 08/27/16 16:05: Sodium 133, Potassium 3.6, Chloride 95 L, Carbon Dioxide 28, Anion Gap 14, BUN 6 L, Creatinine 0.7, Est GFR ( Amer) > 60, Est GFR (Non -Af Amer) > 60, Random Glucose 97, Calcium 8.5, Total Bilirubin 0.5, AST 83 H, ALT 32, Alkaline Phosphatase 93, Total Protein 7.5, Albumin 3.8, Globulin 3.7, Albumin/Globulin Ratio 1.0 L, Lipase 304 H 08/27/16 16:05: WBC 8.4 D, RBC 4.48, Hgb 10.9 L, Hct 33.8 L, MCV 75.4 L, MCH 24.3 L, MCHC 32.2, RDW 17.9 H, Plt Count 232, MPV 8.8, Gran % 77.6 H, Lymph % ( Auto) 14.6 L, [place] % (Auto) 6.8 H, Eos % (Auto) 0.5 L, Baso % (Auto) 0.5, Gran # 6.53 H, Lymph # 1.2, [place] # 0.6, Eos # 0.0, Baso # 0.04 I have reviewed the lab results: Yes Interpretation: Abnormal lab values (hgb 10.9 from 11.9, lipase 304, alcohol 279 ) - RAD Interpretation Radiology Orders: 08/27/16 15:06 CHEST PORTABLE [RAD] Stat no active disease Lacing Presser: Radiologist - EKG Interpretation EKG Interpretation (Text): 08/27/16 15:21 EKG: NSR @ 83 BPM, no ST elevation or depression, no T wave inversion, compared with previous ekg. Interpreted by ED Physician: Yes Type: 12 lead EKG Comparison: Com.w/previous EKG - Medication Orders Current Medication Orders: Discontinued Medications Multivitamins/Vitamin C 10 ml/Thiamine HCl 100 mg/ Folic Acid 1 mg/ Sodium Chloride 1,011.2 mls @ 1,000 mls/hr IV .Q1H1M ONE Stop: 08/27/16 16:07 Last Admin: 08/27/16 16:24 Dose: 1,000 mls/hr Ondansetron HCl (Zofran Inj) 4 mg IVP STAT STA Stop: 08/27/16 15:07 Last Admin: 08/27/16 16:27 Dose: 4 mg Pantoprazole Sodium (Protonix Inj) 40 mg IVP STAT STA Stop: 08/27/16 15:08 Last Admin: 08/27/16 16:27 Dose: 40 mg - PA / [employer] / Resident Statement MD/DO has reviewed & agrees with the documentation as recorded. Disposition/Present on Arrival - Present on Arrival Any Indicators Present on Arrival: No History of DVT/PE: No History of Uncontrolled Diabetes: No Urinary Catheter: No History of Decub. Ulcer: No History Surgical Site Infection Following: None - Disposition Have Diagnosis and Disposition been Completed?: Yes Diagnosis: GI bleed, Alcohol abuse, Alcohol intoxication, Anemia Disposition: HOSPITALIZED Disposition Time: 15:16 Patient Plan: Admission, Telemetry Patient Problems: Current Active Problems Problem Status Onset Alcohol intoxication Acute GI bleed Acute ETOH abuse Acute Condition: STABLE Referrals: Merlin Alexander MD [Primary Care Provider] - Follow up with primary
[2016-08-27] MEDS ORDERED: Multivitamin (MVI) 10 ML, Thiamine 100 MG, Folic Acid 1 MG in Sodium Chloride 0.9% 1,00... IV ONE (15:07)
--- NOTE | 2016-08-27 15:58 | RAD ---
HISTORY: medical clearance COMPARISON: 08/19/2016 FINDINGS: LUNGS: No active pulmonary disease. PLEURA: No significant pleural effusion identified, no pneumothorax apparent. CARDIOVASCULAR: Normal. OSSEOUS STRUCTURES: No significant abnormalities. VISUALIZED UPPER ABDOMEN: Normal. OTHER FINDINGS: None. IMPRESSION: No active disease.
[2016-08-27 16:17] LABS: ADD MANUAL DIFF? NO
[2016-08-27 16:25] LABS: BASO # 0.04 K/mm3 (0.0-2.0); BASO % 0.5 % (0.0-3.0); EOS % 0.5 % (1.5-5.0); GRAN # 6.53 (1.4-6.5); GRAN % 77.6 % (50.0-68.0); HEMATOCRIT 33.8 % (42.0-52.0); LYMPH # 1.2 (1.2-3.4); LYMPH % 14.6 % (22.0-35.0); MEAN CELL VOLUME 75.4 fL (80.0-105.0); MEAN CORPUSCULAR HEMOGLOBIN 24.3 pg (25.0-35.0); MEAN CORPUSCULAR HGB CONC 32.2 g/dl (31.0-37.0); MEAN PLATELET VOLUME 8.8 fl (7.0-11.0); MONO # 0.6 (0.1-0.6); MONO % 6.8 % (1.0-6.0); PLATELET COUNT 232 10^3/uL (120.0-450.0); RED CELL DISTRIBUTION WIDTH 17.9 % (11.5-14.5); WHITE BLOOD COUNT 8.4 10^3/ul (4.5-11.0)
[2016-08-27 16:37] LABS: ALKALINE PHOSPHATASE 93 U/L (38-133); ALT/SGPT 32 U/L (7-56); AST/SGOT 83 U/L (15-59); BILIRUBIN,TOTAL 0.5 mg/dL (0.2-1.3); BLOOD UREA NITROGEN 6 mg/dL (7-21); CALCIUM 8.5 mg/dL (8.4-10.5); CARBON DIOXIDE 28 mmol/L (21-33); CHLORIDE 95 mmol/L (98-107); GFR AFRICAN-AMERICAN > 60; GLUCOSE,RANDOM 97 mg/dL (70-110); LIPASE 304 U/L (23-300); POTASSIUM 3.6 mmol/L (3.6-5.0); SODIUM 133 mmol/L (132-148); TOTAL PROTEIN 7.5 g/dL (5.8-8.3)
[2016-08-27 16:45] LABS: PH,URINE 6.5 (4.7-8.0); URINE BILIRUBIN NEGATIVE (NEGATIVE); URINE BLOOD NEGATIVE (NEGATIVE); URINE GLUCOSE (UA) NEGATIVE (NEGATIVE); URINE KETONE NEGATIVE (NEGATIVE); URINE LEUKOCYTE ESTERASE NEGATIVE Leu/uL (NEGATIVE); URINE PROTEIN NEGATIVE mg/dL (<30 mg/dL); URINE UROBILINOGEN 0.2 E.U./dL (<1 E.U./dL)
[2016-08-27 16:47] LABS: URINE APPEARANCE CLEAR (CLEAR); URINE COLOR YELLOW (YELLOW)
[2016-08-27] MEDS ORDERED: Multivitamin (MVI) 10 ML, Thiamine 100 MG, Folic Acid 1 MG, Potassium Chloride 20 MEQ i... IV SCH (18:45)
--- NOTE | 2016-08-27 20:16 | CP.PCM.HP ---
<Amol Padilla - Last Filed: 08/27/16 20:12> History of Present Illness - History of Present Illness History of Present Illness: CC: Abd pain and coffee-ground emesis after alcohol consumption today HPI: This is a 55 yo M well known to [facility] with PMH of Chronic alcoholism, anemia, chronic pancreatitis, erosive esophagitis/gastritis, and COPD who again reports to [facility] with distress after excess alcohol consumption; this time he reports diffuse abdominal pain and 2-3x coffee ground emesis after consuming five 24 oz beers today. He reports staying in a friend's garage ( patient chronically homeless), and drinking since last discharge (08/19/16-, for chest pain and intoxication), again reporting not taking meds because he can't afford them. Denies chest pain, shortness of breath, room spinning, melena/hematochezia, or focal weakness, but does report watery diarrhea x2 days. Last EGD was done as outpt on 04/24/16, notable for erosive esophagitis/ gastritis and stenosis at EG junction. PMH: as above Surgical Hx: R incarcerated inguinal hernia repair and R orchiectomy SH: Daily alcohol use- drinks 5 24oz beers per day. Former heavy smoker- now smokes "1 cigarette" per day. Denies drug use. FH: Father: Rectal cancer, Mother: Ovarian cancer Meds: None, frequently non-compliant and reports not being able to afford his meds PMD: Dr. Alexander Present on Admission - Present on Admission Any Indicators Present on Admission: No History of DVT/PE: No History of Uncontrolled Diabetes: No Urinary Catheter: No Review of Systems - Review of Systems All systems: reviewed and no additional remarkable complaints except (as in HPI) Past Patient History - Infectious Disease Hx of Infectious Diseases: None - Tetanus Immunizations Tetanus Immunization: Unknown - Past Medical History & Family History Past Medical History?: Yes - Past Social History Smoking Status: Heavy Smoker > 10 Cigarettes Daily - CARDIAC Hx Cardiac Disorders: Yes Hx Hypertension: Yes - PULMONARY Hx Respiratory Disorders: Yes Hx Asthma: Yes Hx Chronic Obstructive Pulmonary Disease (COPD): Yes - NEUROLOGICAL Hx Neurological Disorder: No HX Cerebrovascular Accident: No - HEENT Hx HEENT Problems: No - RENAL Hx Chronic Kidney Disease: No - ENDOCRINE/METABOLIC Hx Endocrine Disorders: Yes Hx Diabetes Mellitus Type 2: Yes - HEMATOLOGICAL/ONCOLOGICAL Hx Blood Disorders: Yes Hx Cancer: Yes (pt does not specify) - INTEGUMENTARY Hx Dermatological Problems: No - MUSCULOSKELETAL/RHEUMATOLOGICAL Hx Musculoskeletal Disorders: Yes Hx Falls: Yes - GASTROINTESTINAL Hx Gastrointestinal Disorders: Yes Hx Gastroesophageal Reflux: Yes - GENITOURINARY/GYNECOLOGICAL Hx Genitourinary Disorders: No - PSYCHIATRIC Hx Psychophysiologic Disorder: Yes (ETOH) Hx Anxiety: Yes Hx Depression: Yes Hx Substance Use: Yes Other/Comment: Alcohol Abuse - SURGICAL HISTORY Hx Cardiac Catheterization: No Hx Coronary Stent: No Hx Musculoskeletal Surgery: Yes (Left hand surgery) - ANESTHESIA Hx Anesthesia: Yes Meds Allergies/Adverse Reactions: Allergies Allergy/AdvReac Type Severity Reaction Status Date / Time Penicillins Allergy RASH Verified 08/27/16 15:04 Physical Exam - Constitutional Appears: Non-toxic, No Acute Distress, Older Than Stated Age, Chronically Ill - Head Exam Head Exam: ATRAUMATIC, NORMAL INSPECTION, NORMOCEPHALIC - Eye Exam Eye Exam: EOMI, Normal appearance, Scleral icterus (mild scleral icterus vs dirty sclera). absent: Conjunctival injection Pupil Exam: absent: Irregular, Unequal - ENT Exam ENT Exam: Mucous Membranes Moist. absent: Mucous Membranes Dry - Respiratory Exam Respiratory Exam: Decreased Breath Sounds (mild-moderately decreased breath sounds in all gallo), Clear to Auscultation Bilateral, Prolonged Expiratory Phase. absent: Accessory Muscle Use, Chest Wall Tenderness, Rales, Rhonchi, Wheezes - Cardiovascular Exam Cardiovascular Exam: REGULAR RHYTHM, RRR, +S1, +S2. absent: Bradycardia, Tachycardia, Irregular Rhythm, +S4 - GI/Abdominal Exam GI & Abdominal Exam: Normal Bowel Sounds, Soft, Tenderness (mild tenderness to palpation diffusely, most predominant in bilateral lower quadrants and epigastrically, no radiation to flanks). absent: Diminished Bowel Sounds, Firm , Hyperactive Bowel Sounds, Hypoactive Bowel Sounds, Rigid Additional comments: no caput medusa, no striations, no spider angiomas noted - Extremities Exam Extremities exam: Positive for: normal capillary refill, normal inspection, pedal pulses present. Negative for: calf tenderness, full ROM, pedal edema, tenderness - Back Exam Back exam: absent: CVA tenderness (L), CVA tenderness (R) - Neurological Exam Neurological exam: Alert, Oriented x3 - Psychiatric Exam Psychiatric exam: Normal Affect, Normal Mood - Skin Skin Exam: Dry, Intact, Normal Color, Warm Results - Vital Signs Recent Vital Signs: Last Vital Signs Temp 98.7 F 08/27/16 15:02 Pulse 69 08/27/16 17:03 Resp 18 08/27/16 17:03 BP 107/79 08/27/16 17:03 Pulse Ox 97 08/27/16 17:03 - Labs Result Diagrams: 08/27/16 16:05 08/27/16 16:05 Labs: Laboratory Results - last 24 hr 08/27/16 17:55 Urine Opiates Screen Negative Urine Methadone Screen Negative Ur Barbiturates Screen Negative Ur Phencyclidine Scrn Negative Ur Amphetamines Screen Negative U Benzodiazepines Scrn Positive H U Oth Cocaine Metabols Negative U Cannabinoids Screen Negative Assessment & Plan - Assessment and Plan (Free Text) Assessment: This is a 55 yo M well known to [facility] with PMH of Chronic alcoholism, anemia, chronic pancreatitis, erosive esophagitis/gastritis, and COPD here for recurrent alcohol abuse with co-presentation of diffuse abdominal pain and 2-3 episodes of coffee-ground emesis. Plan: 1) Abdominal pain with coffee-ground emesis -Upper GI bleed suspected, hx of errosive esophagitis/gastritis 2/2 alcohol abuse, abusing alcohol continuously since most recent discharge and non- compliant with medications -May also be pancreatitis component, mildly elevated lipase and likely chronic pancreatitis 2/2 chronic alcohol abuse, so lipase level not reliable -NPO, Protonix IVP 40mg q12, Banana Bag IVF 150 cc/hr + 20 mEq KCl per bag -GI consulted (Dr. 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 junction, recommended PPI and alcohol cessation -Hgb appropriate, consistent with level at last discharge, no indication for transfusion at this time; type and screen, H&H q8, transfuse if active bleeding and symptomatic or if Hgb < 7 -SCDs for DVT ppx, avoid any anticoagulation -CT abd/pelvis with IV contrast ordered 2) Etoh abuse -Discussed risks of ETOH abuse and recommended cessation; patient repeatedly states that he knows, but offers no sincere statement of quitting/wanting to quit, poor insight into condition (thinking that switch from hard liquor to beer would improve the issue) -Banana bag 150cc/hr + 20 mEq KCl per bag -CIWA protocol, Librium 25mg PO q8 (LFTs acceptable for librium), Ativan PO 1.5mg q3 PRN (per pharmacy, as low on IV formulation) -Alcohol level 269 on arrival, no tremors on exam but will likely begin to withdraw soon -Avoid consulting Psych for now, denies depression or wanting to harm himself, and has history of complaining of psychiatric issues just to remain in hospital 3) COPD -stable -PRN Duonebs q6 4) Electrolyte abnormalities -Will monitor and replace as needed Dispo: Telemetry inpt, pending GI eval and input, pending CT abd/pelvis, on CIWA protocol for pending withdrawal FEN: NPO, Banana bag at 150cc/hr + 20 mEq KCl per bag Access: Peripheral IV Consults: GI Ppx: Protonix IVP 40mg q12 covers GI, SCDs for DVT (avoid AC) Patient seen, reviewed, and discussed with attending, Dr. Narvaez. - Date & Time Date: 08/27/16 Time: 16:30 Decision To Admit - Pt Status Changed To: Hospital Disposition Of: Inpatient Admission - Admit Certification Admit to Inpatient:: After my assessment, the patient will require hospitalization for at least two midnights. This is because of the severity of symptoms shown, intensity of services needed, and/or the medical risk in this patient being treated as an outpatient. - . Bed Request Type: Telemetry <Dale Narvaez - Last Filed: 08/28/16 07:33> Results - Vital Signs Recent Vital Signs: Last Vital Signs Temp 98.7 F 08/27/16 15:02 Pulse 69 08/27/16 17:03 Resp 18 08/27/16 23:44 BP 107/79 08/27/16 17:03 Pulse Ox 97 08/27/16 17:03 - Labs Result Diagrams: 08/27/16 21:01 08/27/16 16:05 Labs: Laboratory Results - last 24 hr 08/27/16 21:01 Hgb 11.0 L Hct 34.2 L Attending/Attestation - Attestation I have personally seen and examined this patient.: Yes I have fully participated in the care of the patient.: Yes I have reviewed all pertinent clinical information: Yes Notes (Text): 08/27/16 55 year old male with past medical history of chronic ETOH abuse, anemia, chronic pancreatitis, esophagitis/gastritis and COPD with multiple prior and recent admissions for ETOH abuse presents with complaint of abdominal pain with nausea and coffee-ground emesis. Alcohol level was also elevated at 269. Will admit to telemetry unit. Continue with NPO, IV fluids and protonix. Serial H/H and transfuse prn. GI evaluation is requested. CT abd/pelvis was ordered. His last EGD was on 04/24/13 which showed erosive esophagitis, gastritis and stenosis at EG junction. Continue with banana bag. Continue with librium and ativan prn for withdrawal symptoms. Patient was counselled on alcohol abstinence. Overall prognosis is guarded given poor compliance. Dale Narvaez MD Hospitalist.
[2016-08-27] MEDS ORDERED: Albuterol-Ipratrop 3 mg / 0.5 (3 ml) UD IH PRN (20:35)
[2016-08-27 21:06] LABS: HEMATOCRIT 34.2 % (42.0-52.0)
[2016-08-28 07:39] LABS: ADD MANUAL DIFF? NO
[2016-08-28 07:47] LABS: BASO # 0.02 K/mm3 (0.0-2.0); BASO % 0.3 % (0.0-3.0); EOS # 0.2 (0.0-0.7); EOS % 2.3 % (1.5-5.0); GRAN # 4.12 (1.4-6.5); HEMATOCRIT 32.9 % (42.0-52.0); LYMPH # 1.4 (1.2-3.4); LYMPH % 21.6 % (22.0-35.0); MEAN CORPUSCULAR HEMOGLOBIN 24.2 pg (25.0-35.0); MEAN CORPUSCULAR HGB CONC 31.9 g/dl (31.0-37.0); MEAN PLATELET VOLUME 8.9 fl (7.0-11.0); MONO # 0.8 (0.1-0.6); MONO % 11.8 % (1.0-6.0); PLATELET COUNT 208 10^3/uL (120.0-450.0); RED CELL DISTRIBUTION WIDTH 17.8 % (11.5-14.5); WHITE BLOOD COUNT 6.4 10^3/ul (4.5-11.0)
[2016-08-28 07:57] LABS: INR 1.12 (0.93-1.08); PARTIAL THROMBOPLASTIN TIME 30.4 Seconds (23.7-30.8)
--- NOTE | 2016-08-28 08:26 | CON ---
DATE: 08/28/2016 I examined the patient this morning. 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 The patient was seen in the Emergency Room yesterday with complaints of coffee-ground emesis after drinking really significantly for 2 days prior to admission. The patient denied any rectal bleeding. Did indicate there is some degree of epigastric pain. At the current time point, the patient has no abdominal pain, does not feel nauseous, has not had coffee-ground emesis since admission. PHYSICAL EXAMINATION: VITAL SIGNS: I reviewed this patient's vital signs. HEENT: Noncontributory. LUNGS: Decreased breath sounds basilar. HEART: Irregular rhythm. ABDOMEN: Soft. No tenderness elicited. I reviewed this patient's laboratory data. Last H and H as of 2099 is . Platelet count of roughly 230 on prior blood draw. Chemistry reveals AST/ALT ratio of 82/32, bilirubin 0.5. His magnesium is on the low side. He had an alcohol level of 340 on admission. Urine positive for benzodiazepines as well. 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 I personally scoped this patient multiple times. He had a last upper endoscopy done several months ago which again revealed severe erosive esophagitis with multiple ulcerations, gastritis which is his par for course. Despite counseling to the contrary, the patient continues to drink very extensively and does not practice antireflux precautions. He does not take medication for acid reflux or esophagitis. At this point in time, we suggest conservative therapy without the performance of an upper endoscopy. He is currently on pantoprazole 40 b.i.d., and Zofran 4 q. 6 with IV fluids. He is currently n.p.o. A CT was ordered, but it has not been performed yet. Quinton Escobar DO, PhD cc: [id number] TT: 08/28/2016 08:25:45 Confirmation # [id number] Dictation # [id number] carole [facility]diaz[facility]
[2016-08-28 08:27] LABS: TROPONIN I 0.01 ng/mL
[2016-08-28 08:40] LABS: ALB/GLOB RATIO 0.9 (1.1-1.8); ALKALINE PHOSPHATASE 90 U/L (38-133); ALT/SGPT 32 U/L (7-56); AST/SGOT 40 U/L (15-59); BILIRUBIN,TOTAL 0.8 mg/dL (0.2-1.3); BLOOD UREA NITROGEN 7 mg/dL (7-21); CALCIUM 8.6 mg/dL (8.4-10.5); CARBON DIOXIDE 27 mmol/L (21-33); CHLORIDE 101 mmol/L (98-107); GFR AFRICAN-AMERICAN > 60; GLUCOSE,RANDOM 88 mg/dL (70-110); MAGNESIUM 1.6 mg/dL (1.7-2.2); PHOSPHOROUS 3.3 mg/dL (2.5-4.5); POTASSIUM 3.7 mmol/L (3.6-5.0); SODIUM 135 mmol/L (132-148); TOTAL PROTEIN 6.9 g/dL (5.8-8.3)
[2016-08-28] MEDS ORDERED: Magnesium Sulfate 2 GM in Sodium Chloride 0.9% 100 ML IVPB ONE (09:13)
--- NOTE | 2016-08-28 14:04 | CP.PCM.PN ---
<Amol Padilla - Last Filed: 08/28/16 13:59> Subjective - Date & Time of Evaluation Date of Evaluation: 08/28/16 Time of Evaluation: 07:40 - Subjective Subjective: Internal Medicine Progress Note for Dr. Narvaez Patient seen and examined at bedside. Today is hospital day 2. No acute events overnight, no further reported hematemesis. Patient sleeping at time of exam, easily arousable. Denies current abdominal pain, new emesis since admission, new hematemesis, fevers/chills. No overt tremors noted. Objective - Vital Signs/Intake and Output Vital Signs (last 24 hours): Temp Pulse Resp BP Pulse Ox 97.8 F 75 19 132/91 H 95 08/28/16 08:38 08/28/16 08:38 08/28/16 08:38 08/28/16 08:38 08/28/16 08:38 Intake and Output: 08/28/16 08/28/16 06:59 18:59 Intake Total 0 Output Total 725 Balance -725 - Medications Medications: Current Medications Albuterol/Ipratropium (Duoneb 3 Mg/0.5 Mg (3 Ml) Ud) 3 ml IH [id number] PRN PRN Reason: Shortness of Breath Chlordiazepoxide (Librium) 25 mg PO Q8 SOPHIA PRN Reason: Protocol Last Admin: 08/28/16 05:36 Dose: 25 mg Multivitamins/Vitamin C 10 ml/Thiamine HCl 100 mg/ Folic Acid 1 mg/ Potassium Chloride 20 meq/ Sodium Chloride 1,021.2 mls @ 150 mls/hr IV .Q6H49M [facility] Lorazepam (Ativan) 1.5 mg PO Q3H PRN; Protocol PRN Reason: Agitation/EtOH Withdrawal Last Admin: 08/27/16 22:37 Dose: 1.5 mg Ondansetron HCl (Zofran Inj) 4 mg IVP Q6H PRN PRN Reason: Nausea/Vomiting Last Admin: 08/28/16 10:25 Dose: 4 mg Pantoprazole Sodium (Protonix Inj) 40 mg IVP Q12 SOPHIA Last Admin: 08/28/16 10:20 Dose: 40 mg - Labs Labs: 08/28/16 13:19 08/28/16 06:20 PT 12.1 Seconds (9.9-11.8) H 08/28/16 06:20 INR 1.12 (0.93-1.08) H 08/28/16 06:20 APTT 30.4 Seconds (23.7-30.8) 08/28/16 06:20 - Additional Findings Additional findings: - Constitutional Appears: Non-toxic, No Acute Distress, Older Than Stated Age, Chronically Ill - Head Exam Head Exam: ATRAUMATIC, NORMAL INSPECTION, NORMOCEPHALIC - Eye Exam Eye Exam: EOMI, Normal appearance, Scleral icterus (mild scleral icterus vs dirty sclera, unchanged). absent: Conjunctival injection Pupil Exam: absent: Irregular, Unequal - ENT Exam ENT Exam: Mucous Membranes Moist. absent: Mucous Membranes Dry - Respiratory Exam Respiratory Exam: Decreased Breath Sounds (mild decreased breath sounds in all gallo), Clear to Auscultation Bilateral, Prolonged Expiratory Phase. absent: Accessory Muscle Use, Chest Wall Tenderness, Rales, Rhonchi, Wheezes - Cardiovascular Exam Cardiovascular Exam: REGULAR RHYTHM, RRR, +S1, +S2. absent: Bradycardia, Tachycardia, Irregular Rhythm, +S4 - GI/Abdominal Exam GI & Abdominal Exam: Normal Bowel Sounds, Soft. absent: Tenderness, Diminished Bowel Sounds, Firm, Hyperactive Bowel Sounds, Hypoactive Bowel Sounds, Rigid, Caput medusa, Striations, Spider angiomas - Extremities Exam Extremities exam: Positive for: normal capillary refill, normal inspection, pedal pulses present. Negative for: calf tenderness, full ROM, pedal edema, tenderness - Back Exam Back exam: absent: CVA tenderness (L), CVA tenderness (R) - Neurological Exam Neurological exam: Sleeping but easily arousable, Oriented x3 - Psychiatric Exam Psychiatric exam: Normal Affect, Normal Mood - Skin Skin Exam: Dry, Intact, Normal Color, Warm Assessment and Plan - Assessment and Plan (Free Text) Assessment: This is a 55 yo M well known to [facility] with PMH of Chronic alcoholism, anemia, chronic pancreatitis, erosive esophagitis/gastritis, and COPD here for recurrent alcohol abuse with co-presentation of diffuse abdominal pain and 2-3 episodes of coffee-ground emesis. Plan: 1) Abdominal pain with coffee-ground emesis -Upper GI bleed suspected, hx of errosive esophagitis/gastritis 2/2 alcohol abuse, abusing alcohol continuously since most recent discharge and non- compliant with medications -May also be pancreatitis component, mildly elevated lipase and likely chronic pancreatitis 2/2 chronic alcohol abuse, so lipase level not reliable -NPO, Protonix IVP 40mg q12, Banana Bag IVF 150 cc/hr + 20 mEq KCl per bag -GI consulted (Dr. Escobar), appreciate all recs; medically manage for now, no plan for EGD given recent one in April -Last EGD 04/24/16: erosive esophagitis/gastritis and stenosis at EG junction, recommended PPI and alcohol cessation -Hgb stable at 10-11, no indication for transfusion at this time; type and screen, H&H q8, transfuse if active bleeding and symptomatic or if Hgb < 7 -SCDs for DVT ppx, avoid any anticoagulation -CT abd/pelvis with IV contrast obtained, official read pending, f/u 2) Etoh abuse -Discussed risks of ETOH abuse and recommended cessation; patient repeatedly states that he knows, but offers no sincere statement of quitting/wanting to quit, poor insight into condition (thinking that switch from hard liquor to beer would improve the issue) -Banana bag 150cc/hr + 20 mEq KCl per bag -CIWA protocol, Librium 25mg PO q8 (LFTs acceptable for librium), Ativan PO 1.5mg q3 PRN (per pharmacy, as low on IV formulation) -Alcohol level 269 on arrival, no tremors on exam today -Avoid consulting Psych for now, denies depression or wanting to harm himself, and has history of complaining of psychiatric issues just to remain in hospital 3) COPD -stable -PRN Duonebs q6 4) Electrolyte abnormalities -Will monitor and replace as needed; Mag low, repleted, f/u in AM Dispo: Telemetry inpt, pending CT abd/pelvis read, on CIWA protocol for pending withdrawal FEN: NPO, Banana bag at 150cc/hr + 20 mEq KCl per bag Access: Peripheral IV Consults: GI Ppx: Protonix IVP 40mg q12 covers GI, SCDs for DVT (avoid AC) Patient seen, reviewed, and discussed with attending, Dr. Narvaez. <Dale Narvaez - Last Filed: 08/28/16 21:47> Objective - Vital Signs/Intake and Output Vital Signs (last 24 hours): Temp Pulse Resp BP Pulse Ox 98.8 F 75 18 111/85 95 08/28/16 18:00 08/28/16 18:00 08/28/16 18:00 08/28/16 18:00 08/28/16 18:00 Intake and Output: 08/28/16 08/29/16 18:59 06:59 Intake Total 0 Output Total 725 Balance -725 - Medications Medications: Current Medications Albuterol/Ipratropium (Duoneb 3 Mg/0.5 Mg (3 Ml) Ud) 3 ml IH [id number] PRN PRN Reason: Shortness of Breath Chlordiazepoxide (Librium) 25 mg PO Q8 SOPHIA PRN Reason: Protocol Last Admin: 08/28/16 21:20 Dose: 25 mg Multivitamins/Vitamin C 10 ml/Thiamine HCl 100 mg/ Folic Acid 1 mg/ Potassium Chloride 20 meq/ Sodium Chloride 1,021.2 mls @ 150 mls/hr IV .Q6H49M [facility] Last Admin: 08/28/16 14:08 Dose: 150 mls/hr Lorazepam (Ativan) 1.5 mg PO Q3H PRN; Protocol PRN Reason: Agitation/EtOH Withdrawal Last Admin: 08/28/16 21:33 Dose: 1.5 mg Ondansetron HCl (Zofran Inj) 4 mg IVP Q6H PRN PRN Reason: Nausea/Vomiting Last Admin: 08/28/16 21:22 Dose: 4 mg Pantoprazole Sodium (Protonix Inj) 40 mg IVP Q12 [facility] Last Admin: 08/28/16 21:21 Dose: 40 mg - Labs Labs: 08/28/16 19:30 08/28/16 06:20 PT 12.1 Seconds (9.9-11.8) H 08/28/16 06:20 INR 1.12 (0.93-1.08) H 08/28/16 06:20 APTT 30.4 Seconds (23.7-30.8) 08/28/16 06:20 Attending/Attestation - Attestation I have personally seen and examined this patient.: Yes I have fully participated in the care of the patient.: Yes I have reviewed all pertinent clinical information, including history, physical exam and plan: Yes Notes (Text): 08/28/16 21:44 55 year old male with past medical history of chronic ETOH abuse, anemia, chronic pancreatitis, esophagitis/gastritis and COPD with multiple prior and recent admissions for ETOH abuse who presented with complaint of abdominal pain with nausea and coffee-ground emesis and elevated alcohol level of 269. He is NPO with fluids and protonix. GI evaluation was appreciated; agreed with above and with conservative management for now. Serial hemoglobins have been stable. CT abd/pelvis was done; will follow up with report. His last EGD was on 04/24/13 which showed erosive esophagitis, gastritis and stenosis at EG junction. Continue with banana bag. Continue with librium and ativan prn for withdrawal symptoms. Patient was counselled on alcohol abstinence. Will replete and repeat lytes. Overall prognosis is guarded given poor compliance. Dale Narvaez MD Hospitalist.
[2016-08-28] MEDS: Multivitamin (MVI) 10 ML, Thiamine 100 MG, Folic Acid 1 MG, Potassium Chloride 20 MEQ i... IV SCH ×2 (14:08→22:20)
--- NOTE | 2016-08-28 14:17 | CARD ---
APPROVED REPORT EKG Measurement Heart [id number] <Conclusion> Normal sinus rhythm Normal ECG
--- NOTE | 2016-08-28 15:46 | CARD ---
APPROVED REPORT EKG Measurement Heart [id number] [id number] <Conclusion> Normal sinus rhythm Low voltage limb leads PRWP V 1 - 4, possibly lead positioning
--- NOTE | 2016-08-28 17:59 | CT ---
PROCEDURE: CT abdomen and pelvis dated 08/28/2016 HISTORY: Diffuse abdominal pain, coffee-ground emesis Nursing staff indicates of the EGD 04/2016 which demonstrated distal esophageal lesion with ulceration COMPARISON: Comparison made with prior CT scan of the abdomen and pelvis 08/20/2015. TECHNIQUE: Contiguous axial images of the abdomen and pelvis. Oral contrast was administered. No IV contrast given. Coronal and Sagittal reformats generated. Radiation dose: Total exam DLP = 511.57 mGy-cm. This CT exam was performed using one or more of the following dose reduction techniques: Automated exposure control, adjustment of the mA and/or kV according to patient size, and/or use of iterative reconstruction technique. FINDINGS: LOWER THORAX: Mild passive atelectasis both lung bases. No infiltrate effusion or basilar pneumothorax. Moderate size hiatal hernia with significant esophageal wall thickening. This could be due to esophagitis or possibly esophageal carcinoma. Endoscopy followup is recommended. The heart is enlarged. No significant pericardial effusion. LIVER: The liver exhibits normal size measuring approximately 16 cm in CC dimension. Mild diffuse fatty hepatic infiltration. No obvious hepatic mass or collection. GALLBLADDER AND BILE DUCTS: The gallbladder is physiologically distended. Several tiny calculi seen layering along the dependent portion of the gallbladder. The questionable mild wall thickening. . Consider follow-up gallbladder ultrasound. PANCREAS: The pancreas is grossly unremarkable without obvious mass collection or calcification. No significant pancreatic ductal dilatation. SPLEEN: Spleen is enlarged measuring approximately 14 cm in AP dimension. . Questionable increased vascularity within the splenic hilar region; rule out small varices ADRENALS: There is slight nodular hypertrophy of the left adrenal gland more so than the right. KIDNEYS AND URETERS: Kidneys that demonstrate symmetric nephrograms. No evidence of nephrolithiasis or hydronephrosis. No obvious renal mass or collection. BLADDER: The urinary bladder is incompletely distended which may account for slight thick-walled appearance. Muscular hypertrophy may contribute. Cystitis would be less likely in a male patient. REPRODUCTIVE: Prostate gland measures approximately 3.3 cm. Prostatic calcifications are present. Seminal vesicles appear grossly unremarkable. APPENDIX: Normal-appearing appendix best seen on coronal image number [id number]. BOWEL: Evaluation of the bowel is limited due to the lack of oral contrast material. The stomach is incompletely distended which presumably accounts for thick-walled appearance. Gastritis or other intrinsic/ invasive wall lesion including but not limited to gastric carcinoma. Endoscopy followup recommended. . The visualized loops of small bowel exhibit normal contour and caliber. No evidence of acute mechanical small bowel obstruction Stool and air seen throughout the colon. No definitive abnormal mural wall thickening. PERITONEUM: No gross free intraperitoneal air. No free or loculated fluid collections. LYMPH NODES: There are multiple nonspecific prominent upper abdominal and the slightly smaller retroperitoneal lymph nodes. VASCULATURE: Unremarkable. No aortic aneurysm. BONES: Mild multilevel degenerative spondylosis of the lower thoracic and lumbar spine. Vertebral bodies exhibit normal relatively normal stature The tiny sclerotic focus within the right femoral head felt to represent a small bone island or osteoma. OTHER FINDINGS: None. IMPRESSION: Moderate size hiatal hernia with significant wall thickening of the distal esophagus; rule out esophagitis or esophageal carcinoma. There is also on incomplete distention of the stomach which presumably in part accounts for thick-walled appearance of gastritis or other intrinsic/invasive wall lesion including gastric carcinoma not excluded. Endoscopy followup recommended for these findings. There are multiple prominent nonspecific upper abdominal and slightly smaller retroperitoneal lymph nodes. Mild fatty hepatic infiltration. Splenomegaly. Questionable increased vascularity within the splenic hilar region; rule out small varices Mild nodular hypertrophy of the left adrenal gland more so than right. Cardiomegaly. Cholelithiasis. Slight gallbladder wall thickening ; rule out mild cholecystitis therefore ultrasound followup recommended. Note these findings were discussed with 3rd floor Nurse Maryellen at approximately 5:50 p.m. with written down and read back verification.
[2016-08-28 19:56] LABS: HEMATOCRIT 35.2 % (42.0-52.0)
[2016-08-29] MEDS: Multivitamin (MVI) 10 ML, Thiamine 100 MG, Folic Acid 1 MG, Potassium Chloride 20 MEQ i... IV SCH ×3 (05:29→19:01)
--- NOTE | 2016-08-29 07:36 | PN ---
DATE: 08/29/2016 I examined the patient this morning. 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 The patient seems to be doing fairly well. No repeat episodes of nausea and vomiting, no abdom inal pain. The patient is handling liquid diet without problems. No major episodes of either hemate mesis or rectal bleeding on the floor. PHYSICAL EXAMINATION: VITAL SIGNS: I reviewed this patient's vital signs. His physical exam is noncontributory this morning. LABORATORY DATA: Review indicates the H and H is stable. 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 The patient seems to be doing well on current regimen, would advance diet as per the hospitalist. Quinton Escobar DO cc: [id number] TT: 08/29/2016 07:35:22 Confirmation # [id number] Dictation # [id number] tn
[2016-08-29 08:26] LABS: ALB/GLOB RATIO 0.9 (1.1-1.8); ALKALINE PHOSPHATASE 95 U/L (38-133); ALT/SGPT 30 U/L (7-56); AST/SGOT 35 U/L (15-59); BILIRUBIN,TOTAL 1.2 mg/dL (0.2-1.3); BLOOD UREA NITROGEN 6 mg/dL (7-21); CALCIUM 8.7 mg/dL (8.4-10.5); CARBON DIOXIDE 25 mmol/L (21-33); CHLORIDE 102 mmol/L (95-110); GFR AFRICAN-AMERICAN > 60; GLUCOSE,RANDOM 86 mg/dL (70-110); PHOSPHOROUS 3.8 mg/dL (2.5-4.5); POTASSIUM 4.3 mmol/L (3.6-5.0); SODIUM 134 mmol/L (132-148); TOTAL PROTEIN 6.7 g/dL (5.8-8.3)
[2016-08-29 09:28] LABS: BASO # 0.02 K/mm3 (0.0-2.0); BASO % 0.3 % (0.0-3.0); EOS # 1.1 (0.0-0.7); EOS % 14.9 % (1.5-5.0); GRAN # 4.36 (1.4-6.5); GRAN % 57.5 % (50.0-68.0); LYMPH # 1.4 (1.2-3.4); LYMPH % 18.6 % (22.0-35.0); MEAN CELL VOLUME 76.6 fL (80.0-105.0); MEAN CORPUSCULAR HGB CONC 31.4 g/dl (31.0-37.0); MEAN PLATELET VOLUME 9.5 fl (7.0-11.0); MONO # 0.7 (0.1-0.6); MONO % 8.7 % (1.0-6.0); PLATELET COUNT 207 10^3/uL (120.0-450.0); RED CELL DISTRIBUTION WIDTH 17.8 % (11.5-14.5); WHITE BLOOD COUNT 7.6 10^3/ul (4.5-11.0)
[2016-08-29 09:36] LABS: ADD MANUAL DIFF? NO
--- NOTE | 2016-08-29 18:51 | CP.PCM.PN ---
<Amol Padilla - Last Filed: 08/29/16 18:43> Subjective - Date & Time of Evaluation Date of Evaluation: 08/29/16 Time of Evaluation: 07:40 - Subjective Subjective: Internal Medicine Progress Note for Dr. Narvaez Patient seen and examined at bedside. Today is hospital day 3. No acute events overnight, no further reported hematemesis. Resting comfortably in bed. Denies current abdominal pain, new emesis since admission, new hematemesis, fevers/chills. Received 2 PRN doses of ativan. No overt tremors noted. No new complaints, asking about regular diet, but informed that due to his esophagitis, would not be getting full diet for now. Objective - Vital Signs/Intake and Output Vital Signs (last 24 hours): Temp Pulse Resp BP Pulse Ox 97.3 F L 73 18 116/80 100 08/29/16 16:00 08/29/16 16:00 08/29/16 16:00 08/29/16 16:00 08/29/16 16:00 Intake and Output: 08/29/16 08/29/16 06:59 18:59 Intake Total 1020 Output Total 1900 Balance -880 - Medications Medications: Current Medications Albuterol/Ipratropium (Duoneb 3 Mg/0.5 Mg (3 Ml) Ud) 3 ml IH [id number] PRN PRN Reason: Shortness of Breath Chlordiazepoxide (Librium) 25 mg PO Q8 SOPHIA PRN Reason: Protocol Last Admin: 08/29/16 13:57 Dose: 25 mg Multivitamins/Vitamin C 10 ml/Thiamine HCl 100 mg/ Folic Acid 1 mg/ Potassium Chloride 20 meq/ Sodium Chloride 1,021.2 mls @ 150 mls/hr IV .[id number] SOPHIA Last Admin: 08/29/16 14:39 Dose: 150 mls/hr Lorazepam (Ativan) 1.5 mg PO Q3H PRN; Protocol PRN Reason: Agitation/EtOH Withdrawal Last Admin: 08/29/16 05:26 Dose: 1.5 mg Ondansetron HCl (Zofran Inj) 4 mg IVP Q6H PRN PRN Reason: Nausea/Vomiting Last Admin: 08/29/16 05:27 Dose: 4 mg Pantoprazole Sodium (Protonix Inj) 40 mg IVP Q12 SOPHIA Last Admin: 08/29/16 14:05 Dose: Not Given - Labs Labs: 08/29/16 08:00 08/29/16 07:30 PT 12.1 Seconds (9.9-11.8) H 08/28/16 06:20 INR 1.12 (0.93-1.08) H 08/28/16 06:20 APTT 30.4 Seconds (23.7-30.8) 08/28/16 06:20 - Additional Findings Additional findings: - Constitutional Appears: Non-toxic, No Acute Distress, Older Than Stated Age, Chronically Ill - Head Exam Head Exam: ATRAUMATIC, NORMAL INSPECTION, NORMOCEPHALIC - Eye Exam Eye Exam: EOMI, Normal appearance, Scleral icterus (mild scleral icterus vs dirty sclera, unchanged). absent: Conjunctival injection Pupil Exam: absent: Irregular, Unequal - ENT Exam ENT Exam: Mucous Membranes Moist. absent: Mucous Membranes Dry - Respiratory Exam Respiratory Exam: Decreased Breath Sounds (mild decreased breath sounds in all gallo), Clear to Auscultation Bilateral, Prolonged Expiratory Phase. absent: Accessory Muscle Use, Chest Wall Tenderness, Rales, Rhonchi, Wheezes - Cardiovascular Exam Cardiovascular Exam: REGULAR RHYTHM, RRR, +S1, +S2. absent: Bradycardia, Tachycardia, Irregular Rhythm, +S4 - GI/Abdominal Exam GI & Abdominal Exam: Normal Bowel Sounds, Soft. absent: Tenderness, Diminished Bowel Sounds, Firm, Hyperactive Bowel Sounds, Hypoactive Bowel Sounds, Rigid, Caput medusa, Striations, Spider angiomas - Extremities Exam Extremities exam: Positive for: normal capillary refill, normal inspection, pedal pulses present. Negative for: calf tenderness, full ROM, pedal edema, tenderness - Back Exam Back exam: absent: CVA tenderness (L), CVA tenderness (R) - Neurological Exam Neurological exam: Awake, Alert, Oriented x3 - Psychiatric Exam Psychiatric exam: Normal Affect, Normal Mood - Skin Skin Exam: Dry, Intact, Normal Color, Warm Assessment and Plan - Assessment and Plan (Free Text) Assessment: This is a 55 yo M well known to [facility] [place] with PMH of Chronic alcoholism, anemia, chronic pancreatitis, erosive esophagitis/gastritis, and COPD here for recurrent alcohol abuse with co-presentation of diffuse abdominal pain and 2-3 episodes of coffee-ground emesis. Plan: 1) Abdominal pain with coffee-ground emesis -Upper GI bleed suspected, hx of errosive esophagitis/gastritis 2/2 alcohol abuse, abusing alcohol continuously since most recent discharge and non- compliant with medications -May also be pancreatitis component, mildly elevated lipase and likely chronic pancreatitis 2/2 chronic alcohol abuse, so lipase level not reliable -NPO, Protonix IVP 40mg q12, Banana Bag IVF 150 cc/hr + 20 mEq KCl per bag -GI consulted (Dr. Escobar), appreciate all recs; medically manage for now, no plan for EGD given recent one in April, to advance diet (clear to full liquid) -Last EGD 04/24/16: erosive esophagitis/gastritis and stenosis at EG junction, recommended PPI and alcohol cessation -Hgb stable, no indication for transfusion at this time; transfuse if active bleeding and symptomatic or if Hgb < 7 -SCDs for DVT ppx, avoid any anticoagulation -CT abd/pelvis with IV contrast obtained, notable for moderate size hiatal hernia with significant wall thickening, esophagitis vs esophageal carcinoma; gastric carcinoma not excluded; Mild fatty hepatic infiltration; Splenomegaly; Cholelithiasis, slight gallbladder wall thickening (please see full report for details) -Abd US ordered to assess gallbadder 2) Etoh abuse -Discussed risks of ETOH abuse and recommended cessation; patient repeatedly states that he knows, but offers no sincere statement of quitting/wanting to quit, poor insight into condition (thinking that switch from hard liquor to beer would improve the issue) -Banana bag 100cc/hr + 20 mEq KCl per bag -CIWA protocol, Librium 25mg PO q8 (LFTs acceptable for librium), Ativan PO 1.5mg q3 PRN (per pharmacy, as low on IV formulation) -Alcohol level 269 on arrival, no tremors on exam today -Avoid consulting Psych for now, denies depression or wanting to harm himself, and has history of complaining of psychiatric issues just to remain in hospital 3) COPD -stable -PRN Duonebs q6 4) Electrolyte abnormalities -Will monitor and replace as needed Dispo: Telemetry inpt, pending CT abd/pelvis read, on CIWA protocol for pending withdrawal FEN: Full liquids, Banana bag at 100cc/hr + 20 mEq KCl per bag Access: Peripheral IV Consults: GI Ppx: Protonix IVP 40mg q12 covers GI, SCDs for DVT (avoid AC) Patient seen, reviewed, and discussed with attending, Dr. Narvaez. <Dale Narvaez - Last Filed: 08/29/16 22:25> Objective - Vital Signs/Intake and Output Vital Signs (last 24 hours): Temp Pulse Resp BP Pulse Ox 97.3 F L 82 18 116/80 100 08/29/16 16:00 08/29/16 18:00 08/29/16 16:00 08/29/16 16:00 08/29/16 16:00 Intake and Output: 08/29/16 08/30/16 18:59 06:59 Intake Total 900 Balance 900 - Medications Medications: Current Medications Albuterol/Ipratropium (Duoneb 3 Mg/0.5 Mg (3 Ml) Ud) 3 ml IH [id number] PRN PRN Reason: Shortness of Breath Chlordiazepoxide (Librium) 25 mg PO Q8 SOPHIA PRN Reason: Protocol Last Admin: 08/29/16 21:57 Dose: 25 mg Multivitamins/Vitamin C 10 ml/Thiamine HCl 100 mg/ Folic Acid 1 mg/ Potassium Chloride 20 meq/ Sodium Chloride 1,021.2 mls @ 100 mls/hr IV .[id number] SOPHIA Last Admin: 08/29/16 19:01 Dose: 100 mls/hr Lorazepam (Ativan) 1.5 mg PO Q3H PRN; Protocol PRN Reason: Agitation/EtOH Withdrawal Last Admin: 08/29/16 22:04 Dose: 1.5 mg Ondansetron HCl (Zofran Inj) 4 mg IVP Q6H PRN PRN Reason: Nausea/Vomiting Last Admin: 08/29/16 22:14 Dose: 4 mg Pantoprazole Sodium (Protonix Inj) 40 mg IVP Q12 SOPHIA Last Admin: 08/29/16 21:57 Dose: 40 mg - Labs Labs: 08/29/16 08:00 08/29/16 07:30 PT 12.1 Seconds (9.9-11.8) H 08/28/16 06:20 INR 1.12 (0.93-1.08) H 08/28/16 06:20 APTT 30.4 Seconds (23.7-30.8) 08/28/16 06:20 Attending/Attestation - Attestation I have personally seen and examined this patient.: Yes I have fully participated in the care of the patient.: Yes I have reviewed all pertinent clinical information, including history, physical exam and plan: Yes Notes (Text): 08/29/16 22:22 55 year old male with past medical history of chronic ETOH abuse, anemia, chronic pancreatitis, esophagitis/gastritis and COPD with multiple prior and recent admissions for ETOH abuse who presented with complaint of abdominal pain with nausea and coffee-ground emesis and elevated alcohol level of 269. GI evaluation was appreciated. He is on protonix. N/V have resolved. His diet will be advanced as tolerated. CT abd/pelvis was reviewed showing gastric/ esophagus thickening and cholelithiasis. His last EGD was on 04/24/13 which showed erosive esophagitis, gastritis and stenosis at EG junction. Will review with GI. US abdomen is ordered. Continue with banana bag. Continue with librium and ativan prn for withdrawal symptoms. Patient was counselled on alcohol abstinence. Will replete and repeat lytes. Overall prognosis is guarded given poor compliance. Dale Narvaez MD Hospitalist.
[2016-08-30] MEDS: Multivitamin (MVI) 10 ML, Thiamine 100 MG, Folic Acid 1 MG, Potassium Chloride 20 MEQ i... IV SCH ×2 (04:00→21:09)
[2016-08-30 07:51] LABS: BASO # 0.03 K/mm3 (0.0-2.0); BASO % 0.3 % (0.0-3.0); EOS # 1.6 (0.0-0.7); GRAN # 5.36 (1.4-6.5); GRAN % 51.9 % (50.0-68.0); HEMATOCRIT 36.6 % (42.0-52.0); LYMPH # 2.5 (1.2-3.4); LYMPH % 24.1 % (22.0-35.0); MEAN CELL VOLUME 77.1 fL (80.0-105.0); MEAN CORPUSCULAR HEMOGLOBIN 24.2 pg (25.0-35.0); MEAN CORPUSCULAR HGB CONC 31.4 g/dl (31.0-37.0); MEAN PLATELET VOLUME 9.5 fl (7.0-11.0); MONO # 0.8 (0.1-0.6); MONO % 8.1 % (1.0-6.0); PLATELET COUNT 240 10^3/uL (120.0-450.0); RED CELL DISTRIBUTION WIDTH 17.7 % (11.5-14.5); WHITE BLOOD COUNT 10.3 10^3/ul (4.5-11.0)
[2016-08-30 07:52] LABS: ADD MANUAL DIFF? NO; EOS % 15.6 % (1.5-5.0)
[2016-08-30 07:57] LABS: ALB/GLOB RATIO 1.1 (1.1-1.8); ALKALINE PHOSPHATASE 103 U/L (38-133); ALT/SGPT 31 U/L (7-56); AST/SGOT 34 U/L (15-59); BILIRUBIN,TOTAL 0.9 mg/dL (0.2-1.3); CALCIUM 9.1 mg/dL (8.4-10.5); CARBON DIOXIDE 24 mmol/L (21-33); CHLORIDE 101 mmol/L (95-110); GFR AFRICAN-AMERICAN > 60; GLUCOSE,RANDOM 91 mg/dL (70-110); MAGNESIUM 1.7 mg/dL (1.7-2.2); PHOSPHOROUS 3.9 mg/dL (2.5-4.5); POTASSIUM 4.1 mmol/L (3.6-5.0); SODIUM 135 mmol/L (132-148); TOTAL PROTEIN 7.6 g/dL (5.8-8.3)
[2016-08-30 08:16] LABS: BLOOD UREA NITROGEN 4 mg/dL (7-21)
--- NOTE | 2016-08-30 08:47 | PN ---
DATE: 08/30/2016 I examined the patient this morning. There is really no major change in his physical exam. Mildly t calvin in the epigastric area. The patient denied hematemesis or rectal bleeding. Seems to be tolerating a liquid diet without prob lems. I would advance his diet as tolerated. The patient must practice antireflux precautions and t yaakov a PPI on the outside. In general, the patient seems to be making progress on the current therape utic regimen. Therefore, I will sign off the case today. Quinton Escobar DO cc: [id number] TT: 08/30/2016 08:46:36 Confirmation # [id number] Dictation # [id number] mn
--- NOTE | 2016-08-30 10:54 | US ---
HISTORY: assess gallbladder COMPARISON: None. TECHNIQUE: Sonographic evaluation of the abdomen. FINDINGS: LIVER: Measures cm. Increased echogenicity of the liver parenchyma. No mass. No intrahepatic bile duct dilatation. GALLBLADDER: Cholelithiasis. COMMON BILE DUCT: Measures mm. No stones. No dilatation. PANCREAS: Unremarkable as visualized. No mass. No ductal dilatation. RIGHT KIDNEY: Measures cm. Normal echogenicity. No calculus, mass, or hydronephrosis. LEFT KIDNEY: Measures cm. Normal echogenicity. No calculus, mass, or hydronephrosis. SPLEEN: Normal in size and contour. No mass. AORTA: No aneurysmal dilatation. IVC: Unremarkable. OTHER FINDINGS: None. IMPRESSION: Heterogeneous liver echotexture compatible with hepatocellular disease. Cholelithiasis.
--- NOTE | 2016-08-30 15:52 | CP.PCM.PN ---
<Amol Padilla - Last Filed: 08/30/16 15:49> Subjective - Date & Time of Evaluation Date of Evaluation: 08/30/16 Time of Evaluation: 07:30 - Subjective Subjective: Internal Medicine Progress Note for Dr. Narvaez Patient seen and examined at bedside. Today is hospital day 4. No acute events overnight, no further reported hematemesis. Resting comfortably in bed. Denies current abdominal pain, new emesis since admission, new hematemesis, fevers/chills. No overt tremors noted. No new complaints. Objective - Vital Signs/Intake and Output Vital Signs (last 24 hours): Temp Pulse Resp BP Pulse Ox 97.5 F L 71 18 121/81 98 08/30/16 08:44 08/30/16 08:44 08/30/16 08:44 08/30/16 08:44 08/30/16 08:44 Intake and Output: 08/30/16 08/30/16 06:59 18:59 Intake Total 2500 940 Output Total 800 Balance 2500 140 - Medications Medications: Current Medications Albuterol/Ipratropium (Duoneb 3 Mg/0.5 Mg (3 Ml) Ud) 3 ml IH [id number] PRN PRN Reason: Shortness of Breath Chlordiazepoxide (Librium) 10 mg PO Q8 [facility] Multivitamins/Vitamin C 10 ml/Thiamine HCl 100 mg/ Folic Acid 1 mg/ Potassium Chloride 20 meq/ Sodium Chloride 1,021.2 mls @ 100 mls/hr IV .[id number] [facility] Last Admin: 08/30/16 04:00 Dose: 100 mls/hr Lorazepam (Ativan) 1 mg PO Q6H PRN; Protocol PRN Reason: Agitation/EtOH Withdrawal Ondansetron HCl (Zofran Inj) 4 mg IVP Q6H PRN PRN Reason: Nausea/Vomiting Last Admin: 08/30/16 05:12 Dose: 4 mg Pantoprazole Sodium (Protonix Inj) 40 mg IVP Q12 [facility] Last Admin: 08/30/16 12:00 Dose: Not Given - Labs Labs: 08/30/16 07:00 08/30/16 07:00 PT 12.1 Seconds (9.9-11.8) H 08/28/16 06:20 INR 1.12 (0.93-1.08) H 08/28/16 06:20 APTT 30.4 Seconds (23.7-30.8) 08/28/16 06:20 - Additional Findings Additional findings: - Constitutional Appears: Non-toxic, No Acute Distress, Older Than Stated Age, Chronically Ill - Head Exam Head Exam: ATRAUMATIC, NORMAL INSPECTION, NORMOCEPHALIC - Eye Exam Eye Exam: EOMI, Normal appearance, Scleral icterus (mild scleral icterus vs dirty sclera, unchanged). absent: Conjunctival injection Pupil Exam: absent: Irregular, Unequal - ENT Exam ENT Exam: Mucous Membranes Moist. absent: Mucous Membranes Dry - Respiratory Exam Respiratory Exam: Decreased Breath Sounds (mild decreased breath sounds in all gallo), Clear to Auscultation Bilateral, Prolonged Expiratory Phase. absent: Accessory Muscle Use, Chest Wall Tenderness, Rales, Rhonchi, Wheezes - Cardiovascular Exam Cardiovascular Exam: REGULAR RHYTHM, RRR, +S1, +S2. absent: Bradycardia, Tachycardia, Irregular Rhythm, +S4 - GI/Abdominal Exam GI & Abdominal Exam: Normal Bowel Sounds, Soft, Reports tenderness to palpation at RUQ but displays no overt signs of distress/pain. absent: Diminished Bowel Sounds, Firm, Hyperactive Bowel Sounds, Hypoactive Bowel Sounds, Rigid, Caput medusa, Striations, Spider angiomas - Extremities Exam Extremities exam: Positive for: normal capillary refill, normal inspection, pedal pulses present. Negative for: calf tenderness, full ROM, pedal edema, tenderness - Back Exam Back exam: absent: CVA tenderness (L), CVA tenderness (R) - Neurological Exam Neurological exam: Awake, Alert, Oriented x3 - Psychiatric Exam Psychiatric exam: Normal Affect, Normal Mood - Skin Skin Exam: Dry, Intact, Normal Color, Warm Assessment and Plan - Assessment and Plan (Free Text) Assessment: This is a 55 yo M well known to [facility] with PMH of Chronic alcoholism, anemia, chronic pancreatitis, erosive esophagitis/gastritis, and COPD here for recurrent alcohol abuse with co-presentation of diffuse abdominal pain and 2-3 episodes of coffee-ground emesis. Plan: 1) Abdominal pain with coffee-ground emesis -Upper GI bleed suspected, hx of errosive esophagitis/gastritis 2/2 alcohol abuse, abusing alcohol continuously since most recent discharge and non- compliant with medications -May also be pancreatitis component, mildly elevated lipase and likely chronic pancreatitis 2/2 chronic alcohol abuse, so lipase level not reliable -Full liquids, Protonix IVP 40mg q12, Banana Bag IVF 150 cc/hr + 20 mEq KCl per bag -GI consulted (Dr. Escobar), appreciate all recs; medically manage for now, no plan for EGD given recent one in April, ok to advance diet (clear to full liquid) -Last EGD 04/24/16: erosive esophagitis/gastritis and stenosis at EG junction, recommended PPI and alcohol cessation -Hgb stable, no indication for transfusion at this time; transfuse if active bleeding and symptomatic or if Hgb < 7 -SCDs for DVT ppx, avoid any anticoagulation -CT abd/pelvis with IV contrast obtained, notable for moderate size hiatal hernia with significant wall thickening, esophagitis vs esophageal carcinoma; gastric carcinoma not excluded; Mild fatty hepatic infiltration; Splenomegaly; Cholelithiasis, slight gallbladder wall thickening (please see full report for details) -Abd US: Heterogeneous liver echotexture compatible with hepatocellular disease. Cholelithiasis. 2) Etoh abuse -Discussed risks of ETOH abuse and recommended cessation; patient repeatedly states that he knows, but offers no sincere statement of quitting/wanting to quit, poor insight into condition (thinking that switch from hard liquor to beer would improve the issue) -Banana bag 100cc/hr + 20 mEq KCl per bag -CIWA protocol, weaning Librium to 10mg PO q8, weaning PRN Ativan to 1mg PO q6 -Alcohol level 269 on arrival, no tremors on exam today -Avoid consulting Psych for now, denies depression or wanting to harm himself, and has history of complaining of psychiatric issues just to remain in hospital 3) COPD -stable -PRN Duonebs q6 4) Electrolyte abnormalities -Will monitor and replace as needed Dispo: Telemetry inpt, pending CT abd/pelvis read, on CIWA protocol for pending withdrawal FEN: Full liquids, Banana bag at 100cc/hr + 20 mEq KCl per bag Access: Peripheral IV Consults: GI Ppx: Protonix IVP 40mg q12 covers GI, SCDs for DVT (avoid AC) Patient seen, reviewed, and discussed with attending, Dr. Narvaez. <Dale Narvaez - Last Filed: 08/30/16 16:46> Objective - Vital Signs/Intake and Output Vital Signs (last 24 hours): Temp Pulse Resp BP Pulse Ox 97.5 F L 71 18 121/81 98 08/30/16 08:44 08/30/16 08:44 08/30/16 08:44 08/30/16 08:44 08/30/16 08:44 Intake and Output: 08/30/16 08/30/16 06:59 18:59 Intake Total 2500 940 Output Total 800 Balance 2500 140 - Medications Medications: Current Medications Albuterol/Ipratropium (Duoneb 3 Mg/0.5 Mg (3 Ml) Ud) 3 ml IH [id number] PRN PRN Reason: Shortness of Breath Chlordiazepoxide (Librium) 10 mg PO Q8 [facility] Multivitamins/Vitamin C 10 ml/Thiamine HCl 100 mg/ Folic Acid 1 mg/ Potassium Chloride 20 meq/ Sodium Chloride 1,021.2 mls @ 100 mls/hr IV .[id number] [facility] Last Admin: 08/30/16 04:00 Dose: 100 mls/hr Lorazepam (Ativan) 1 mg PO Q6H PRN; Protocol PRN Reason: Agitation/EtOH Withdrawal Ondansetron HCl (Zofran Inj) 4 mg IVP Q6H PRN PRN Reason: Nausea/Vomiting Last Admin: 08/30/16 05:12 Dose: 4 mg Pantoprazole Sodium (Protonix Inj) 40 mg IVP Q12 [facility] Last Admin: 08/30/16 12:00 Dose: Not Given - Labs Labs: 08/30/16 07:00 08/30/16 07:00 PT 12.1 Seconds (9.9-11.8) H 08/28/16 06:20 INR 1.12 (0.93-1.08) H 08/28/16 06:20 APTT 30.4 Seconds (23.7-30.8) 08/28/16 06:20 Attending/Attestation - Attestation I have personally seen and examined this patient.: Yes I have fully participated in the care of the patient.: Yes I have reviewed all pertinent clinical information, including history, physical exam and plan: Yes Notes (Text): 08/30/16 16:41 55 year old male with past medical history of chronic ETOH abuse, anemia, chronic pancreatitis, esophagitis/gastritis and COPD with multiple prior and recent admissions for ETOH abuse who presented with complaint of abdominal pain with nausea and coffee-ground emesis and elevated alcohol level of 269. His N/V/abdominal pain has resolved. Hemoglobin has been stable. His is on protonix bid. He is tolerating full liquid diet. GI is following. CT abd/ pelvis showed gastric/esophagus thickening and cholelithiasis. His last EGD was on 04/24/13 which showed erosive esophagitis, gastritis and stenosis at EG junction. He will need follow up EGD and colonoscopy as outpatient. Continue with banana bag. Continue with librium and ativan prn for withdrawal symptoms which we will begin to taper. Encouraged out of bed to chair. Patient was counselled on alcohol abstinence. Overall prognosis is guarded given poor compliance and chronic ETOH abuse. Possible D/C planning over weekend if he remains stable. Dale Narvaez MD Hospitalist.
[2016-08-30 19:51] VITALS: RESP 20
--- NOTE | 2016-08-30 22:51 | CP.PCM.PN ---
Subjective - Date & Time of Evaluation Date of Evaluation: 08/30/16 Time of Evaluation: 22:50 - Subjective Subjective: pt needs angiocath insertion . Objective - Vital Signs/Intake and Output Vital Signs (last 24 hours): Temp Pulse Resp BP Pulse Ox 98.3 F 67 20 125/89 99 08/30/16 16:00 08/30/16 16:00 08/30/16 16:00 08/30/16 16:00 08/30/16 16:00 Intake and Output: 08/30/16 08/31/16 18:59 06:59 Intake Total 940 Output Total 800 Balance 140 - Medications Medications: Current Medications Albuterol/Ipratropium (Duoneb 3 Mg/0.5 Mg (3 Ml) Ud) 3 ml IH [id number] PRN PRN Reason: Shortness of Breath Chlordiazepoxide (Librium) 10 mg PO Q8 [facility] Last Admin: 08/30/16 21:07 Dose: 10 mg Multivitamins/Vitamin C 10 ml/Thiamine HCl 100 mg/ Folic Acid 1 mg/ Potassium Chloride 20 meq/ Sodium Chloride 1,021.2 mls @ 100 mls/hr IV .[id number] [facility] Last Admin: 08/30/16 21:09 Dose: 100 mls/hr Lorazepam (Ativan) 1 mg PO Q6H PRN; Protocol PRN Reason: Agitation/EtOH Withdrawal Last Admin: 08/30/16 21:17 Dose: 1 mg Ondansetron HCl (Zofran Inj) 4 mg IVP Q6H PRN PRN Reason: Nausea/Vomiting Last Admin: 08/30/16 21:16 Dose: 4 mg Pantoprazole Sodium (Protonix Inj) 40 mg IVP Q12 [facility] Last Admin: 08/30/16 21:07 Dose: 40 mg - Labs Labs: 08/30/16 07:00 08/30/16 07:00 PT 12.1 Seconds (9.9-11.8) H 08/28/16 06:20 INR 1.12 (0.93-1.08) H 08/28/16 06:20 APTT 30.4 Seconds (23.7-30.8) 08/28/16 06:20 Assessment and Plan - Assessment and Plan (Free Text) Assessment: 22 guage angiocath inserted in left foot area.
[2016-08-31] MEDS: Multivitamin (MVI) 10 ML, Thiamine 100 MG, Folic Acid 1 MG, Potassium Chloride 20 MEQ i... IV SCH (05:34)
[2016-08-31 07:34] LABS: ADD MANUAL DIFF? NO
[2016-08-31 07:51] LABS: ALKALINE PHOSPHATASE 84 U/L (38-133); ALT/SGPT 28 U/L (7-56); AST/SGOT 29 U/L (15-59); BILIRUBIN,TOTAL 0.8 mg/dL (0.2-1.3); BLOOD UREA NITROGEN 3 mg/dL (7-21); CARBON DIOXIDE 27 mmol/L (21-33); CHLORIDE 105 mmol/L (98-107); GFR AFRICAN-AMERICAN > 60; GLUCOSE,RANDOM 83 mg/dL (70-110); MAGNESIUM 1.8 mg/dL (1.7-2.2); PHOSPHOROUS 4.2 mg/dL (2.5-4.5); SODIUM 137 mmol/L (132-148); TOTAL PROTEIN 6.9 g/dL (5.8-8.3)
[2016-08-31 07:52] LABS: BASO # 0.02 K/mm3 (0.0-2.0); BASO % 0.3 % (0.0-3.0); EOS # 1.4 (0.0-0.7); EOS % 20.7 % (1.5-5.0); GRAN # 3.48 (1.4-6.5); GRAN % 52.2 % (50.0-68.0); HEMATOCRIT 34.1 % (42.0-52.0); LYMPH # 1.3 (1.2-3.4); LYMPH % 19.5 % (22.0-35.0); MEAN CELL VOLUME 76.3 fL (80.0-105.0); MEAN CORPUSCULAR HEMOGLOBIN 24.4 pg (25.0-35.0); MEAN PLATELET VOLUME 9.5 fl (7.0-11.0); MONO # 0.5 (0.1-0.6); MONO % 7.3 % (1.0-6.0); PLATELET COUNT 198 10^3/uL (120.0-450.0); RED CELL DISTRIBUTION WIDTH 17.5 % (11.5-14.5); WHITE BLOOD COUNT 6.7 10^3/ul (4.5-11.0)
[2016-08-31 09:41] VITALS: BP 111/77; TEMP 97.7; O2SAT 96
[2016-08-31 15:12] VITALS: PULSE 78
[2016-08-31] MEDS ORDERED: Pantoprazole 40 mg EC Tab PO SCH (16:30)
--- NOTE | 2016-08-31 17:22 | CP.PCM.DIS ---
<Amol Padilla - Last Filed: 08/31/16 17:18> Provider - Provider Date of Admission: 08/27/16 19:05 Attending physician: Dale Narvaez MD Primary care physician: Merlin Alexander MD Consults: GI: Shawn Time Spent in preparation of Discharge (in minutes): 40 Diagnosis - Discharge Diagnosis (1) Alcohol intoxication Status: Resolved Priority: Medium (2) ETOH abuse Status: Chronic Priority: Medium (3) GI bleed Status: Acute Priority: High (4) Erosive esophagitis Status: Chronic Priority: High (5) Esophagitis Status: Chronic Priority: Medium (6) Hematemesis Status: Resolved Priority: High Hospital Course - Lab Results Lab Results: Most Recent Lab Values WBC 6.7 10^3/ul (4.5-11.0) D 08/31/16 07:32 RBC 4.47 10^6/uL (3.5-6.1) 08/31/16 07:32 Hgb 10.9 gm/dL (14.0-18.0) L 08/31/16 07:32 Hct 34.1 % (42.0-52.0) L 08/31/16 07:32 MCV 76.3 fL (80.0-105.0) L 08/31/16 07:32 MCH 24.4 pg (25.0-35.0) L 08/31/16 07:32 MCHC 32.0 g/dl (31.0-37.0) 08/31/16 07:32 RDW 17.5 % (11.5-14.5) H 08/31/16 07:32 Plt Count 198 10^3/uL (120.0-450.0) 08/31/16 07:32 MPV 9.5 fl (7.0-11.0) 08/31/16 07:32 Gran % 52.2 % (50.0-68.0) 08/31/16 07:32 Lymph % (Auto) 19.5 % (22.0-35.0) L 08/31/16 07:32 [place] % (Auto) 7.3 % (1.0-6.0) H 08/31/16 07:32 Eos % (Auto) 20.7 % (1.5-5.0) H 08/31/16 07:32 Baso % (Auto) 0.3 % (0.0-3.0) 08/31/16 07:32 Gran # 3.48 (1.4-6.5) 08/31/16 07:32 Lymph # 1.3 (1.2-3.4) 08/31/16 07:32 [place] # 0.5 (0.1-0.6) 08/31/16 07:32 Eos # 1.4 (0.0-0.7) H 08/31/16 07:32 Baso # 0.02 K/mm3 (0.0-2.0) 08/31/16 07:32 PT 12.1 Seconds (9.9-11.8) H 08/28/16 06:20 INR 1.12 (0.93-1.08) H 08/28/16 06:20 APTT 30.4 Seconds (23.7-30.8) 08/28/16 06:20 Sodium 137 mmol/L (132-148) 08/31/16 07:32 Potassium 4.0 mmol/L (3.6-5.0) 08/31/16 07:32 Chloride 105 mmol/L (98-107) 08/31/16 07:32 Carbon Dioxide 27 mmol/L (21-33) 08/31/16 07:32 Anion Gap 9 (10-20) L 08/31/16 07:32 BUN 3 mg/dL (7-21) L 08/31/16 07:32 Creatinine 0.8 mg/dL (0.5-1.4) 08/31/16 07:32 Est GFR ( Amer) > 60 08/31/16 07:32 Est GFR (Non-Af Amer) > 60 08/31/16 07:32 POC Glucose (mg/dL) 113 mg/dL (65-110) H 08/27/16 15:11 Random Glucose 83 mg/dL (70-110) 08/31/16 07:32 Calcium 9.0 mg/dL (8.4-10.5) 08/31/16 07:32 Phosphorus 4.2 mg/dL (2.5-4.5) 08/31/16 07:32 Magnesium 1.8 mg/dL (1.7-2.2) 08/31/16 07:32 Total Bilirubin 0.8 mg/dL (0.2-1.3) 08/31/16 07:32 AST 29 U/L (15-59) 08/31/16 07:32 ALT 28 U/L (7-56) 08/31/16 07:32 Alkaline Phosphatase 84 U/L (38-133) 08/31/16 07:32 Troponin I 0.01 ng/mL 08/28/16 06:20 Total Protein 6.9 g/dL (5.8-8.3) 08/31/16 07:32 Albumin 3.4 g/dL (3.0-4.8) 08/31/16 07:32 Globulin 3.5 gm/dL 08/31/16 07:32 Albumin/Globulin Ratio 1.0 (1.1-1.8) L 08/31/16 07:32 Lipase 304 U/L (23-300) H 08/27/16 16:05 Urine Color Yellow (YELLOW) 08/27/16 16:30 Urine Appearance Clear (CLEAR) 08/27/16 16:30 Urine pH 6.5 (4.7-8.0) 08/27/16 16:30 Ur Specific [place] 1.010 (1.005-1.035) 08/27/16 16:30 Urine Protein Negative mg/dL (<30 mg/dL) 08/27/16 16:30 Urine Glucose (UA) Negative mg/dL (NEGATIVE) 08/27/16 16:30 Urine Ketones Negative mg/dL (NEGATIVE) 08/27/16 16:30 Urine Blood Negative (NEGATIVE) 08/27/16 16:30 Urine Nitrate Negative (NEGATIVE) 08/27/16 16:30 Urine Bilirubin Negative (NEGATIVE) 08/27/16 16:30 Urine Urobilinogen 0.2 E.U./dL (<1 E.U./dL) 08/27/16 16:30 Ur Leukocyte Esterase Negative Vanda/uL (NEGATIVE) 08/27/16 16:30 Stool Occult Blood Positive (NEGATIVE) H 08/29/16 11:00 Salicylates < 1 mg/dL (2.0-20.0) L 08/27/16 16:05 Urine Opiates Screen Negative (NEGATIVE) 08/27/16 17:55 Urine Methadone Screen Negative (NEGATIVE) 08/27/16 17:55 Acetaminophen < 10.0 ug/ml (10.0-20.0) L 08/27/16 16:05 Ur Barbiturates Screen Negative (NEGATIVE) 08/27/16 17:55 Ur Phencyclidine Scrn Negative (NEGATIVE) 08/27/16 17:55 Ur Amphetamines Screen Negative (NEGATIVE) 08/27/16 17:55 U Benzodiazepines Scrn Positive (NEGATIVE) H 08/27/16 17:55 U Oth Cocaine Metabols Negative (NEGATIVE) 08/27/16 17:55 U Cannabinoids Screen Negative (NEGATIVE) 08/27/16 17:55 Alcohol, Quantitative 269 mg/dL (0-10) H 08/27/16 16:05 Blood Type O POSITIVE 08/27/16 16:05 Antibody Screen Negative 08/27/16 16:05 BBK History Checked Patient has bt 08/27/16 16:05 - Hospital Course Hospital Course: This is a 55 yo M well known to [facility] with PMH of Chronic alcoholism, anemia, chronic pancreatitis, erosive esophagitis/gastritis, and COPD who again reports to [facility] with distress after excess alcohol consumption; this time he reports diffuse abdominal pain and 2-3x coffee ground emesis after consuming five 24 oz beers today. While here, he was seen by GI. Given recent EGD, GI deferred repeat endoscopy at this time. Patient was placed on the CIWA protocol and eventually weaned on Librium and Ativan. No reported seizures with this withdrawal. No repeat episodes of hematemesis since admission, and Hgb persistently stable. Patient was given a script for daily PPI, and was instructed to avoid any further alcohol intake. He was also instructed to follow up with GI as an outpatient in 6-8 weeks for a colonoscopy. Patient expressed understanding and agreement, had no further questions, and was then discharged. Discharge Exam - Additional Findings Additional findings: - Constitutional Appears: Non-toxic, No Acute Distress, Older Than Stated Age, Chronically Ill - Head Exam Head Exam: ATRAUMATIC, NORMAL INSPECTION, NORMOCEPHALIC - Eye Exam Eye Exam: EOMI, Normal appearance, Scleral icterus (mild scleral icterus vs dirty sclera, unchanged). absent: Conjunctival injection Pupil Exam: absent: Irregular, Unequal - ENT Exam ENT Exam: Mucous Membranes Moist, Full ROM. absent: Mucous Membranes Dry - Respiratory Exam Respiratory Exam: Decreased Breath Sounds (mild decreased breath sounds in all gallo), Clear to Auscultation Bilateral, Prolonged Expiratory Phase. absent: Accessory Muscle Use, Chest Wall Tenderness, Rales, Rhonchi, Wheezes - Cardiovascular Exam Cardiovascular Exam: REGULAR RHYTHM, RRR, +S1, +S2. absent: Bradycardia, Tachycardia, Irregular Rhythm, +S4 - GI/Abdominal Exam GI & Abdominal Exam: Normal Bowel Sounds, Soft. absent: Tenderness, Diminished Bowel Sounds, Firm, Hyperactive Bowel Sounds, Hypoactive Bowel Sounds, Rigid, Caput medusa, Striations, Spider angiomas - Extremities Exam Extremities exam: Positive for: normal capillary refill, normal inspection, pedal pulses present. Negative for: calf tenderness, full ROM, pedal edema, tenderness - Back Exam Back exam: absent: CVA tenderness (L), CVA tenderness (R) - Neurological Exam Neurological exam: Awake, Alert, Oriented x3, Gait normal and appropriate - Psychiatric Exam Psychiatric exam: Normal Affect, Normal Mood - Skin Skin Exam: Dry, Intact, Normal Color, Warm Discharge Plan - Discharge Medications Prescriptions: Pantoprazole Sodium [Protonix] 40 mg PO DAILY #30 ect - Follow Up Plan Condition: STABLE Disposition: HOME/ ROUTINE Instructions: Peptic Ulcer (DC), Gastritis (DC), Diet for Ulcers and Gastritis (GEN), Abuse of Alcohol (DC), Alcohol Use Disorder (DC), Esophagitis (DC) Additional Instructions: Please fill and take medications as prescribed. Please follow up with your PMD within 1 week of discharge. Please follow up at the [facility] for outpatient colonoscopy in 6-8 weeks. Please avoid any further alcohol use. Referrals: Alcoholics Anonymous [Outside] [facility] at [facility] [Outside] Merlin Alexander MD [Primary Care Provider] - Quinton Escobar DO [Staff Provider] - <Panda Conner - Last Filed: 08/31/16 22:03> Provider - Provider Date of Admission: 08/27/16 19:05 Attending physician: Dale Narvaez MD Primary care physician: Merlin Alexander MD Hospital Course - Lab Results Lab Results: Most Recent Lab Values WBC 6.7 10^3/ul (4.5-11.0) D 08/31/16 07:32 RBC 4.47 10^6/uL (3.5-6.1) 08/31/16 07:32 Hgb 10.9 gm/dL (14.0-18.0) L 08/31/16 07:32 Hct 34.1 % (42.0-52.0) L 08/31/16 07:32 MCV 76.3 fL (80.0-105.0) L 08/31/16 07:32 MCH 24.4 pg (25.0-35.0) L 08/31/16 07:32 MCHC 32.0 g/dl (31.0-37.0) 08/31/16 07:32 RDW 17.5 % (11.5-14.5) H 08/31/16 07:32 Plt Count 198 10^3/uL (120.0-450.0) 08/31/16 07:32 MPV 9.5 fl (7.0-11.0) 08/31/16 07:32 Gran % 52.2 % (50.0-68.0) 08/31/16 07:32 Lymph % (Auto) 19.5 % (22.0-35.0) L 08/31/16 07:32 [place] % (Auto) 7.3 % (1.0-6.0) H 08/31/16 07:32 Eos % (Auto) 20.7 % (1.5-5.0) H 08/31/16 07:32 Baso % (Auto) 0.3 % (0.0-3.0) 08/31/16 07:32 Gran # 3.48 (1.4-6.5) 08/31/16 07:32 Lymph # 1.3 (1.2-3.4) 08/31/16 07:32 [place] # 0.5 (0.1-0.6) 08/31/16 07:32 Eos # 1.4 (0.0-0.7) H 08/31/16 07:32 Baso # 0.02 K/mm3 (0.0-2.0) 08/31/16 07:32 PT 12.1 Seconds (9.9-11.8) H 08/28/16 06:20 INR 1.12 (0.93-1.08) H 08/28/16 06:20 APTT 30.4 Seconds (23.7-30.8) 08/28/16 06:20 Sodium 137 mmol/L (132-148) 08/31/16 07:32 Potassium 4.0 mmol/L (3.6-5.0) 08/31/16 07:32 Chloride 105 mmol/L (98-107) 08/31/16 07:32 Carbon Dioxide 27 mmol/L (21-33) 08/31/16 07:32 Anion Gap 9 (10-20) L 08/31/16 07:32 BUN 3 mg/dL (7-21) L 08/31/16 07:32 Creatinine 0.8 mg/dL (0.5-1.4) 08/31/16 07:32 Est GFR ( Amer) > 60 08/31/16 07:32 Est GFR (Non-Af Amer) > 60 08/31/16 07:32 POC Glucose (mg/dL) 113 mg/dL (65-110) H 08/27/16 15:11 Random Glucose 83 mg/dL (70-110) 08/31/16 07:32 Calcium 9.0 mg/dL (8.4-10.5) 08/31/16 07:32 Phosphorus 4.2 mg/dL (2.5-4.5) 08/31/16 07:32 Magnesium 1.8 mg/dL (1.7-2.2) 08/31/16 07:32 Total Bilirubin 0.8 mg/dL (0.2-1.3) 08/31/16 07:32 AST 29 U/L (15-59) 08/31/16 07:32 ALT 28 U/L (7-56) 08/31/16 07:32 Alkaline Phosphatase 84 U/L (38-133) 08/31/16 07:32 Troponin I 0.01 ng/mL 08/28/16 06:20 Total Protein 6.9 g/dL (5.8-8.3) 08/31/16 07:32 Albumin 3.4 g/dL (3.0-4.8) 08/31/16 07:32 Globulin 3.5 gm/dL 08/31/16 07:32 Albumin/Globulin Ratio 1.0 (1.1-1.8) L 08/31/16 07:32 Lipase 304 U/L (23-300) H 08/27/16 16:05 Urine Color Yellow (YELLOW) 08/27/16 16:30 Urine Appearance Clear (CLEAR) 08/27/16 16:30 Urine pH 6.5 (4.7-8.0) 08/27/16 16:30 Ur Specific [place] 1.010 (1.005-1.035) 08/27/16 16:30 Urine Protein Negative mg/dL (<30 mg/dL) 08/27/16 16:30 Urine Glucose (UA) Negative mg/dL (NEGATIVE) 08/27/16 16:30 Urine Ketones Negative mg/dL (NEGATIVE) 08/27/16 16:30 Urine Blood Negative (NEGATIVE) 08/27/16 16:30 Urine Nitrate Negative (NEGATIVE) 08/27/16 16:30 Urine Bilirubin Negative (NEGATIVE) 08/27/16 16:30 Urine Urobilinogen 0.2 E.U./dL (<1 E.U./dL) 08/27/16 16:30 Ur Leukocyte Esterase Negative Vanda/uL (NEGATIVE) 08/27/16 16:30 Stool Occult Blood Positive (NEGATIVE) H 08/29/16 11:00 Salicylates < 1 mg/dL (2.0-20.0) L 08/27/16 16:05 Urine Opiates Screen Negative (NEGATIVE) 08/27/16 17:55 Urine Methadone Screen Negative (NEGATIVE) 08/27/16 17:55 Acetaminophen < 10.0 ug/ml (10.0-20.0) L 08/27/16 16:05 Ur Barbiturates Screen Negative (NEGATIVE) 08/27/16 17:55 Ur Phencyclidine Scrn Negative (NEGATIVE) 08/27/16 17:55 Ur Amphetamines Screen Negative (NEGATIVE) 08/27/16 17:55 U Benzodiazepines Scrn Positive (NEGATIVE) H 08/27/16 17:55 U Oth Cocaine Metabols Negative (NEGATIVE) 08/27/16 17:55 U Cannabinoids Screen Negative (NEGATIVE) 08/27/16 17:55 Alcohol, Quantitative 269 mg/dL (0-10) H 08/27/16 16:05 Blood Type O POSITIVE 08/27/16 16:05 Antibody Screen Negative 08/27/16 16:05 BBK History Checked Patient has bt 08/27/16 16:05 Attending/Attestation - Attestation I have personally seen and examined this patient.: Yes I have fully participated in the care of the patient.: Yes I have reviewed all pertinent clinical information, including history, physical exam and plan: Yes Notes (Text): 08/31/16 22:02 Patient seen and examined at bedside. Labs, vitals, notes reviewed. He feels better, reports good appetite and no difficulty with ambulation. He understands the risks of continuing alcohol abuse. He denies any new complaints. Reviewed and agree with the discharge plan outlined above.
== END 2016-08-31 18:06 | disposition home or self-care (01) | DRG 897 ==
LOC: ED 14:46 → ERH 16:54 → 3RSO 18:16 → OBSVTOIN 19:05
PROVIDERS: ADMIT Internal Medicine; ATTEND Internal Medicine
DX: F10.229 Alcohol dependence with intoxication, unspecified (principal); K92.0 Hematemesis; K86.0 Alcohol-induced chronic pancreatitis; K22.10 Ulcer of esophagus without bleeding; I10 Essential (primary) hypertension; K21.9 Gastro-esophageal reflux disease without esophagitis; J44.9 Chronic obstructive pulmonary disease, unspecified; E87.8 Other disorders of electrolyte and fluid balance, not elsewhere classified; K80.20 Calculus of gallbladder without cholecystitis without obstruction; Y90.8 Blood alcohol level of 240 mg/100 ml or more; K29.70 Gastritis, unspecified, without bleeding; Z88.0 Allergy status to penicillin; Z91.14 Patient's other noncompliance with medication regimen

== ENCOUNTER 2016-09-13 20:01 | Emergency (ER) | payer MEDICAID, OTHER ==
[2016-09-13 20:02] VITALS: BMI 25.8
--- NOTE | 2016-09-13 20:46 | ED PDOC ---
Arrival/HPI - General Chief Complaint: Alcohol Ingestion Time Seen by Provider: 09/13/16 20:33 - History of Present Illness Narrative History of Present Illness (Text): 09/13/16 20:42 55yo male with a hx of alcohol use. Pt admits to drinking earlier in the day. pt denies suicidal or homicidal ideations, states he has no depressive thoughts. pt has been to the ER in the past for hematemesis, n/v, abd pain. Pt currently states he has no chest pain, no SOB/CRESPO, denies n/v/abd pain. States he has no complaints and expresses wishes to be dc'd home. Past Medical History - Provider Review Nursing Documentation Reviewed: Yes - Past History Past History: No Previous - Infectious Disease Hx of Infectious Diseases: None - Tetanus Immunization Tetanus Immunization: Unknown - Reproductive Currently : No - Cardiac Hx Hypertension: Yes - Pulmonary Hx Chronic Obstructive Pulmonary Disease (COPD): Yes - Neurological Hx Neurological Disorder: No HX Cerebrovascular Accident: No - HEENT Hx HEENT Disorder: No - Renal Hx Renal Disorder: No - Endocrine/Metabolic Hx Diabetes Mellitus Type 2: Yes - Hematological/Oncological Hx Blood Disorders: Yes Hx Cancer: Yes (pt does not specify) - Integumentary Hx Dermatological Disorder: No - Musculoskeletal/Rheumatological Hx Falls: Yes - Gastrointestinal Hx Gall Bladder Disease: Yes Hx Pancreatitis: Yes - Genitourinary/Gynecological Hx Genitourinary Disorders: No - Psychiatric Hx Anxiety: Yes Hx Depression: Yes Hx Substance Use: Yes - Surgical History Hx Cardiac Catheterization: No Hx Coronary Stent: No Hx Musculoskeletal Surgery: Yes (Left hand surgery) - Anesthesia Hx Anesthesia: Yes - Suicidal Assessment Feels Threatened In Home Enviroment: No Family/Social History Family/Social History: Unknown Family HX Smoking Status: Current Some Days Smoker Hx Alcohol Use: Yes Amount per day: 10 Hx Substance Use: Yes Hx Substance Use Treatment: No Allergies/Home Meds Allergies/Adverse Reactions: Allergies Penicillins Allergy (Verified 08/27/16 15:04) RASH Physical Exam - Physical Exam Narrative Physical Exam (Text): 09/13/16 20:44 - Review of Systems Constitutional: Normal. absent: Fatigue, Weight Change, Fevers Eyes: Normal ENT: denies sore throat, denies tristhmus Respiratory: Normal. absent: SOB, Cough, Sputum Cardiovascular: absent: Chest Pain, Palpitations, Syncope Gastrointestinal: Normal. absent: Abdominal Pain, Diarrhea, Nausea, Vomiting Genitourinary: Normal. absent: Dysuria, Frequency, Hematuria Musculoskeletal: Normal. absent: Arthralgias, Back Pain, Neck Pain Skin: no rashes, no erythema Neurological: absent: Focal Weakness Endocrine: Normal Hemo/Lymphatic: Normal Psychiatric: No suicidal or homicidal ideations Physical exam Patient appears age appropriate in no distress, speaking full sentences without difficulty - Systems Exam Head: Present: Atraumatic, Normocephalic Pupils: Present: PERRL Extroacular Muscles: Present: EOMI Conjunctiva: Present: Normal Mouth: Present: Moist Mucous Membranes Neck: Present: Normal Range of Motion. No: MIDLINE TENDERNESS, Paraspinal Tenderness Respiratory/Chest: Present: Clear to Auscultation, Good Air Exchange. No: Respiratory Distress, Accessory Muscle Use, Tachypneic Cardiovascular: Present: Regular Rate and Rhythm, Normal S1, S2, Peripheal Pulses Present. No: Murmurs Abdomen: Present: Normal Bowel Sounds. No: Tenderness, Distention, Peritoneal Signs, Rebound, Guarding Back: Present: Normal Inspection. No: Midline Tenderness, Paraspinal Tenderness Upper Extremity: Present: Normal Inspection. No: Cyanosis, Edema Lower Extremity: Present: Normal Inspection. No: Edema Neurological: Present: GCS=15, Speech Normal, cranial nerves II through XII fully intact with no cerebellar abnormality, neurosensory fully intact. No focal neurological deficits. Skin: Present: Warm, Dry, Normal Color. No: Rashes Lymphatic: Present: OX3, NI, NC Psychiatric: Present: Alert, Oriented x 3, Normal Insight, Normal Concentration Medical Decision Making ED Course and Treatment: 09/13/16 20:44 pt in no distress tolerating PO without difficulty steady gait good insight and judgment clinically sober asking to be discharged home pt states he feels comfortable being dc'd home at this time no tremors, no tachycardia, no s/s of alcohol withdrawal Pt states he understands to return to the ER right away for new or worsening symptoms or for inability to f/u with PMD or specialist as instructed. Patient states that he fully agrees with and understands discharge instructions. States that he agrees with the plan and disposition. Verbalized and repeated discharge instructions and plan. I have given the patient opportunity to ask any additional questions. Disposition/Present on Arrival - Present on Arrival Any Indicators Present on Arrival: No History of DVT/PE: No History of Uncontrolled Diabetes: No Urinary Catheter: No History of Decub. Ulcer: No History Surgical Site Infection Following: None - Disposition Have Diagnosis and Disposition been Completed?: Yes Diagnosis: Alcohol abuse Disposition: HOME/ ROUTINE Disposition Time: 20:46 Patient Plan: Discharge Condition: GOOD Discharge Instructions (ExitCare): Abuse of Alcohol (ED), Alcohol Use Disorder (ED) Additional Instructions: PLEASE RETURN TO THE EMERGENCY DEPARTMENT FOR NEW OR WORSENING SYMPTOMS. RETURN RIGHT AWAY IF YOU CANNOT FOLLOW UP WITH YOUR PRIMARY CARE DOCTOR, CLINIC, OR SPECIALIST IN 1-2 DAYS. Prescriptions: chlordiazePOXIDE [Chlordiazepoxide HCl] 25 mg PO DAILY #30 cap Referrals: Tommie Alexander MD [Staff Provider] - Follow up with primary [facility] [Outside] - Follow up with primary [facility] [Outside] - Follow up with primary
[2016-09-13 20:50] VITALS: BP 111/79; PULSE 93; RESP 16; TEMP 97.3; O2SAT 95
== END 2016-09-13 20:49 | disposition home or self-care (01) ==
LOC: ED 20:01
DX: F10.10 Alcohol abuse, uncomplicated (principal)

== ENCOUNTER 2016-09-14 21:41 | Observation (INO) | payer MEDICAID ==
--- NOTE | 2016-09-14 22:08 | ED PDOC ---
Arrival/HPI - General Time Seen by Provider: 09/14/16 21:42 Historian: Patient - History of Present Illness Narrative History of Present Illness (Text): 09/14/16 22:06 Travis Royal is a 55 year old male, with a history of hypertension, diabetes, COPD, chronic alcohol abuse, GERD, chronic pancreatitis, and erosive esophagitis , who presents to the Emergency department complaining of mid-sternal chest discomfort tonight. Patient also reports generalized abdominal discomfort. Patient admits to drinking tonight. Patient was seen in the Emergency department yesterday for alcohol intoxication. Patient denies any fever, chills , shortness of breath, nausea, vomiting, diarrhea, urinary symptoms, neck pain, headache, dizziness, or any other complaints. Time/Duration: Other (today) Symptom Onset: Gradual Symptom Course: Unchanged Activities at Onset: Rest, Light Past Medical History - Provider Review Nursing Documentation Reviewed: Yes - Past History Past History: No Previous - Infectious Disease Hx of Infectious Diseases: None - Tetanus Immunization Tetanus Immunization: Unknown - Reproductive Currently : No - Cardiac Hx Hypertension: Yes - Pulmonary Hx Chronic Obstructive Pulmonary Disease (COPD): Yes - Neurological Hx Neurological Disorder: No HX Cerebrovascular Accident: No - HEENT Hx HEENT Disorder: No - Renal Hx Renal Disorder: No - Endocrine/Metabolic Hx Diabetes Mellitus Type 2: Yes - Hematological/Oncological Hx Blood Disorders: Yes Hx Cancer: Yes (pt does not specify) - Integumentary Hx Dermatological Disorder: No - Musculoskeletal/Rheumatological Hx Falls: Yes - Gastrointestinal Hx Gall Bladder Disease: Yes Hx Pancreatitis: Yes - Genitourinary/Gynecological Hx Genitourinary Disorders: No - Psychiatric Hx Anxiety: Yes Hx Depression: Yes Hx Substance Use: Yes - Surgical History Hx Cardiac Catheterization: No Hx Coronary Stent: No Hx Musculoskeletal Surgery: Yes (Left hand surgery) - Anesthesia Hx Anesthesia: Yes - Suicidal Assessment Feels Threatened In Home Enviroment: No Family/Social History - Physician Review Nursing Documentation Reviewed: Yes Family/Social History: Unknown Family HX Smoking Status: Current Some Days Smoker Hx Alcohol Use: Yes Amount per day: 10 Hx Substance Use: Yes Hx Substance Use Treatment: No Allergies/Home Meds Allergies/Adverse Reactions: Allergies Penicillins Allergy (Verified 09/14/16 22:26) RASH Review of Systems - Physician Review All systems were reviewed & negative as marked: Yes - Review of Systems Constitutional: Normal. absent: Fevers Eyes: Normal ENT: Normal Respiratory: Normal. absent: SOB, Cough Cardiovascular: Chest Pain Gastrointestinal: Abdominal Pain. absent: Diarrhea, Nausea, Vomiting Genitourinary Male: Normal. absent: Dysuria, Frequency, Hematuria, Urinary Output Changes Musculoskeletal: Normal. absent: Back Pain, Neck Pain Skin: Normal. absent: Rash Neurological: Normal. absent: Headache, Dizziness Endocrine: Normal Hemo/Lymphatic: Normal Psychiatric: Normal Physical Exam Vital Signs Reviewed: Yes Vital Signs Temp Pulse Resp BP Pulse Ox 09/15/16 04:00 82 16 120/86 98 09/15/16 02:00 80 16 121/80 97 09/15/16 00:00 82 16 120/79 98 09/14/16 22:28 98.0 F 85 16 122/84 98 Temperature: Afebrile Blood Pressure: Normal Pulse: Regular Respiratory Rate: Normal Appearance: Positive for: Well-Appearing, Non-Toxic, Comfortable Pain Distress: None Mental Status: Positive for: Alert and Oriented X 3 - Systems Exam Head: Present: Atraumatic, Normocephalic Pupils: Present: PERRL Extroacular Muscles: Present: EOMI Conjunctiva: Present: Normal Mouth: Present: Moist Mucous Membranes Neck: Present: Normal Range of Motion Respiratory/Chest: Present: Clear to Auscultation, Good Air Exchange. No: Respiratory Distress, Accessory Muscle Use Cardiovascular: Present: Regular Rate and Rhythm, Normal S1, S2. No: Murmurs Abdomen: Present: Normal Bowel Sounds. No: Tenderness, Distention, Peritoneal Signs Back: Present: Normal Inspection Upper Extremity: Present: Normal Inspection. No: Cyanosis, Edema Lower Extremity: Present: Normal Inspection. No: Edema Neurological: Present: GCS=15, CN II-XII Intact, Speech Normal Skin: Present: Warm, Dry, Normal Color. No: Rashes Psychiatric: Present: Alert, Oriented x 3, Normal Insight, Normal Concentration Medical Decision Making ED Course and Treatment: 09/14/16 22:06 Impression: 55 year old male complaining of chest and abdominal discomfort. Admits to drinking tonight. Differential Diagnosis include but are not limited to: alcohol intoxication Plan: -- EKG -- Reassess and disposition Prior Visits: Notes and results from previous visits were reviewed. On 09/13/16, pt was seen in the Emergency department for alcohol intoxication. Pt was d/c home. Re-evaluation Time: 05:59 Reassessment Condition: Re-examined, Improved - Lab Interpretations I have reviewed the lab results: Yes - RAD Interpretation Narrative RAD Interpretations (Text): EKG: Ordered, reviewed, and independently interpreted the EKG. Rate : 82 BPM Rhythm : NSR Interpretation : No ST-segment elevations or depressions, no T-wave inversions, normal intervals. Comparison : No acute change from previous EKG on 08/27/2016. - EKG Interpretation Interpreted by ED Physician: Yes Type: 12 lead EKG - Medication Orders Current Medication Orders: Discontinued Medications Ondansetron HCl (Zofran Odt) 8 mg PO STAT STA Stop: 09/14/16 22:52 Last Admin: 09/14/16 23:07 Dose: 8 mg ED OBSERVATION Discharge: Yes Date of observation admission: 09/14/16 Time of observation admission: 22:30 - Observation admission statement Patient is being placed in observation because:: alcohol abuse - Goals of Observation Goals of observation are:: sobriety - Progress Note Progress Note: 09/14/16 22:30 Reviewed EKG, NSR at [address]-segment elevations or depressions, no T-wave inversions, normal intervals. 09/15/16 00:30 Pt sleeping currently, in no acute distress. 09/15/16 02:30 Pt resting comfortably, no new complaints. 09/15/16 04:30 Pt sleeping currently, in no acute distress. 09/15/16 05:59 Pt awake, alert, ambulating with steady gait. Clinically sober, vital signs stable. Pt stable for d/c. - Scribe Statement The provider has reviewed the documentation as recorded by the Scribalvarez Kaiesr All medical record entries made by the Scribe were at my direction and personally dictated by me. I have reviewed the chart and agree that the record accurately reflects my personal performance of the history, physical exam, medical decision making, and the department course for this patient. I have also personally directed, reviewed, and agree with the discharge instructions and disposition. Disposition/Present on Arrival - Present on Arrival Any Indicators Present on Arrival: No History of DVT/PE: No History of Uncontrolled Diabetes: No Urinary Catheter: No History Surgical Site Infection Following: None - Disposition Have Diagnosis and Disposition been Completed?: Yes Diagnosis: Alcohol abuse Disposition: HOME/ ROUTINE Disposition Time: 06:00 Condition: GOOD
[2016-09-14 22:25] VITALS: BMI 27.4
[2016-09-14 22:28] VITALS: RESP 16; TEMP 98
[2016-09-15 06:06] VITALS: O2SAT 98
[2016-09-15 06:10] VITALS: BP 124/78; PULSE 78
--- NOTE | 2016-09-16 01:16 | CARD ---
APPROVED REPORT EKG Measurement Heart [id number] <Conclusion> Normal sinus rhythm Normal ECG
== END 2016-09-15 06:00 | disposition home or self-care (01) ==
LOC: ED 21:41 → EROBSV 22:30
PROVIDERS: ADMIT Emergency Medicine; ATTEND Emergency Medicine
DX: F10.10 Alcohol abuse, uncomplicated (principal)
CPT/HCPCS: 93005; 99284; G0378

== ENCOUNTER 2016-09-16 20:36 | Inpatient (IN) | payer MEDICAID ==
[2016-09-16 21:03] VITALS: BMI 25.8
[2016-09-16] MEDS ORDERED: Sodium Chloride 0.9% 1,000 ML IV SCH (21:15)
--- NOTE | 2016-09-16 22:26 | ED PDOC ---
Arrival/HPI - General Chief Complaint: Alcohol Ingestion Time Seen by Provider: 09/16/16 21:10 Historian: Patient - History of Present Illness Narrative History of Present Illness (Text): 09/16/16 21:15 Travis Royal is a 55 year old male, whose past medical history includes hypertension, diabetes, COPD, chronic alcohol abuse, GERD, chronic pancreatitis , and erosive esophagitis, who presents to the emergency department complaining of vomiting after drinking too much since this morning. Patient states that he is vomiting up mucous, denies hematemesis. Patient endorses that his last drink was at 14:00 today. Patient denies any fever, chills, chest pain, shortness of breath, diarrhea, urinary symptoms, back pain, neck pain, or any other complaints. PMD: Dr. Alexander Time/Duration: 4-6 hours Symptom Onset: Gradual Symptom Course: Unchanged Severity Level: Mild Activities at Onset: Light Context: Home Past Medical History - Provider Review Nursing Documentation Reviewed: Yes - Past History Past History: No Previous - Infectious Disease Hx of Infectious Diseases: None - Tetanus Immunization Tetanus Immunization: Unknown - Reproductive Currently : No - Cardiac Hx Hypertension: Yes - Pulmonary Hx Chronic Obstructive Pulmonary Disease (COPD): Yes - Neurological Hx Neurological Disorder: No HX Cerebrovascular Accident: No - HEENT Hx HEENT Disorder: No - Renal Hx Renal Disorder: No - Endocrine/Metabolic Hx Diabetes Mellitus Type 2: Yes - Hematological/Oncological Hx Blood Disorders: Yes Hx Cancer: Yes (pt does not specify) - Integumentary Hx Dermatological Disorder: No - Musculoskeletal/Rheumatological Hx Falls: Yes - Gastrointestinal Hx Gall Bladder Disease: Yes Hx Pancreatitis: Yes - Genitourinary/Gynecological Hx Genitourinary Disorders: No - Psychiatric Hx Anxiety: Yes Hx Depression: Yes Hx Substance Use: Yes - Surgical History Hx Cardiac Catheterization: No Hx Coronary Stent: No Hx Musculoskeletal Surgery: Yes (Left hand surgery) - Anesthesia Hx Anesthesia: Yes Hx Anesthesia Reactions: No - Suicidal Assessment Feels Threatened In Home Enviroment: No Family/Social History - Physician Review Nursing Documentation Reviewed: Yes Family/Social History: No Known Family HX Smoking Status: Current Some Days Smoker Hx Alcohol Use: Yes Amount per day: 10 Hx Substance Use: Yes Hx Substance Use Treatment: No Allergies/Home Meds Allergies/Adverse Reactions: Allergies Penicillins Allergy (Verified 09/16/16 21:03) RASH Home Medications: Home Meds Medication Instructions Recorded Confirmed No Known Home Med 09/16/16 09/16/16 Review of Systems - Physician Review All systems were reviewed & negative as marked: Yes - Review of Systems Constitutional: Other (ETOH abuse). absent: Fevers, Night Sweats Eyes: absent: Vision Changes ENT: absent: Hearing Changes Respiratory: absent: SOB, Cough Gastrointestinal: Vomiting. absent: Abdominal Pain Genitourinary Male: absent: Dysuria Musculoskeletal: absent: Arthralgias Skin: absent: Rash Neurological: absent: Headache Endocrine: absent: Diaphoresis Hemo/Lymphatic: absent: Adenopathy Psychiatric: absent: Anxiety Physical Exam Vital Signs Reviewed: Yes Vital Signs Temp Pulse Resp BP Pulse Ox 09/17/16 03:26 98.5 F 77 200 H 118/80 09/17/16 01:00 88 18 126/84 09/16/16 23:00 84 18 136/88 09/16/16 21:05 98.2 F 86 18 124/84 98 Temperature: Afebrile Blood Pressure: Normal Pulse: Regular Respiratory Rate: Normal Appearance: Positive for: Well-Appearing, Non-Toxic, Comfortable Pain Distress: None Mental Status: Positive for: Alert and Oriented X 3 - Systems Exam Head: Present: Atraumatic, Normocephalic Pupils: Present: PERRL Extroacular Muscles: Present: EOMI Conjunctiva: Present: Normal Mouth: Present: Moist Mucous Membranes Neck: Present: Normal Range of Motion Respiratory/Chest: Present: Clear to Auscultation, Good Air Exchange. No: Respiratory Distress, Accessory Muscle Use Cardiovascular: Present: Regular Rate and Rhythm, Normal S1, S2. No: Murmurs Abdomen: Present: Normal Bowel Sounds. No: Tenderness, Distention, Peritoneal Signs Back: Present: Normal Inspection Upper Extremity: Present: Normal Inspection. No: Cyanosis, Edema Lower Extremity: Present: Normal Inspection. No: Edema Neurological: Present: GCS=15, CN II-XII Intact, Speech Normal Skin: Present: Warm, Dry, Normal Color. No: Rashes Psychiatric: Present: Alert, Oriented x 3, Normal Insight, Normal Concentration Medical Decision Making ED Course and Treatment: 09/16/16 21:10 Impression: 55 year old complaining of ETOH abuse and vomiting since this morning. Differential Diagnosis included but are not limited to: Plan: -- Labs -- Protonix, Zofran, and IV Fluids -- Reassess and disposition Prior Visits: Notes and results from previous visits were reviewed. Patient last seen in the ED on 09/14/2016 for mid-sternal chest discomfort that night. Patient was discharged home. Progress Notes: 09/16/16 23:[address] Nj, who is aware and agrees with plain to admit patient to hospitalist service. - Lab Interpretations Lab Results: 09/16/16 22:42 09/16/16 22:42 Lab Results 09/16/16 22:42: Alcohol, Quantitative 266 H 09/16/16 22:42: Sodium 123 L, Potassium 3.2 L, Chloride 83 L D, Carbon Dioxide 25, Anion Gap 18, BUN 5 L, Creatinine 0.7, Est GFR ( Amer) > 60, Est GFR (Non-Af Amer) > 60, Random Glucose 95, Calcium 8.4, Total Bilirubin 1.0, AST 48 , ALT 35, Alkaline Phosphatase 126, Lactate Dehydrogenase 432, Total Creatine Kinase 143, Troponin I < 0.01, Total Protein 7.9, Albumin 4.1, Globulin 3.8, Albumin/Globulin Ratio 1.1, Amylase 171 H, Lipase 342 H 09/16/16 22:42: PT 12.0 H, INR 1.11 H, APTT 32.7 H 09/16/16 22:42: WBC 9.2 D, RBC 4.32, Hgb 10.7 L, Hct 31.5 L, MCV 72.9 L, MCH 24.8 L, MCHC 34.0, RDW 18.9 H, Plt Count 122, MPV 8.4, Gran % 82.0 H, Lymph % ( Auto) 12.8 L, [place] % (Auto) 5.0, Eos % (Auto) 0.0 L, Baso % (Auto) 0.2, Gran # 7.53 H, Lymph # 1.2, [place] # 0.5, Eos # 0.0, Baso # 0.02 - Medication Orders Current Medication Orders: Acetaminophen (Tylenol 325mg Tab) 650 mg PO Q6H PRN PRN Reason: Fever >100.4 F Al Hydrox/Mg Hydrox/Simethicone (Maalox Plus 30 Ml) 30 ml PO Q8H PRN PRN Reason: Upset Stomach Albuterol Sulfate (Albuterol 0.083% Inhal Isa (2.5 Mg/3 Ml) Ud) 2.5 mg IH Q2H PRN PRN Reason: Shortness of Breath Chlordiazepoxide (Librium) 25 mg PO Q8H PRN; Protocol PRN Reason: EtOH withdrawal Famotidine (Pepcid) 20 mg PO BID [facility] Last Admin: 09/17/16 02:23 Dose: 20 mg Hydralazine HCl (Apresoline) 10 mg IVP Q6H PRN PRN Reason: High BP Folic Acid 1 mg/ Sodium (Chloride) 50.2 mls @ 200 mls/hr IV DAILY [facility] Sodium Chloride (Sodium Chloride 0.9%) 1,000 mls @ 150 mls/hr IV .[id number] [facility] Last Admin: 09/17/16 05:09 Dose: 150 mls/hr Ibuprofen (Motrin Tab) 600 mg PO Q6H PRN PRN Reason: Pain, Mild (1-3) Insulin Human Lispro (Humalog) 0 units SC ACHS SOPHIA PRN Reason: Protocol Lisinopril (Zestril) 2.5 mg PO DAILY [facility] Lorazepam (Ativan) 2 mg IVP Q2H PRN; Protocol PRN Reason: EtOH Withdrawal Naltrexone HCl (Revia) 50 mg PO DAILY [facility] Nicotine (Nicoderm Cq) 1 patch TD DAILY [facility] Ondansetron HCl (Zofran Inj) 4 mg IVP Q4H PRN PRN Reason: Nausea/Vomiting Last Admin: 09/17/16 05:06 Dose: 4 mg Thiamine HCl (Vitamin B1 Inj) 100 mg IV DAILY [facility] Discontinued Medications Sodium Chloride (Sodium Chloride 0.9%) 1,000 mls @ 80 mls/hr IV .[id number] [facility] Last Admin: 09/16/16 23:18 Dose: 80 mls/hr Potassium Chloride (Potassium Chloride 20 Meq/100 Ml) 20 meq in 100 mls @ 50 mls/hr IVPB Q2H SOPHIA Stop: 09/17/16 03:44 Last Admin: 09/17/16 05:07 Dose: 50 mls/hr Ondansetron HCl (Zofran Inj) 4 mg IVP STAT STA Stop: 09/16/16 21:14 Last Admin: 09/16/16 23:14 Dose: 4 mg Pantoprazole Sodium (Protonix Inj) 40 mg IVP ONCE STA Stop: 09/16/16 21:14 Last Admin: 09/16/16 23:14 Dose: 40 mg - Scribe Statement The provider has reviewed the documentation as recorded by the Mary Danielle Provider Scribe Attestation: All medical record entries made by the Scribe were at my direction and personally dictated by me. I have reviewed the chart and agree that the record accurately reflects my personal performance of the history, physical exam, medical decision making, and the department course for this patient. I have also personally directed, reviewed, and agree with the discharge instructions and disposition. Disposition/Present on Arrival - Present on Arrival Any Indicators Present on Arrival: No History of DVT/PE: No History of Uncontrolled Diabetes: No Urinary Catheter: No History of Decub. Ulcer: No History Surgical Site Infection Following: None - Disposition Have Diagnosis and Disposition been Completed?: Yes Diagnosis: Alcohol abuse, Hyponatremia Disposition: HOSPITALIZED Disposition Time: 23:00 Condition: FAIR
[2016-09-16 22:48] LABS: ADD MANUAL DIFF? NO
[2016-09-16 22:52] LABS: BASO # 0.02 K/mm3 (0.0-2.0); BASO % 0.2 % (0.0-3.0); GRAN # 7.53 (1.4-6.5); HEMATOCRIT 31.5 % (42.0-52.0); LYMPH # 1.2 (1.2-3.4); LYMPH % 12.8 % (22.0-35.0); MEAN CELL VOLUME 72.9 fL (80.0-105.0); MEAN CORPUSCULAR HEMOGLOBIN 24.8 pg (25.0-35.0); MEAN PLATELET VOLUME 8.4 fl (7.0-11.0); MONO # 0.5 (0.1-0.6); PLATELET COUNT 122 10^3/uL (120.0-450.0); RED CELL DISTRIBUTION WIDTH 18.9 % (11.5-14.5); WHITE BLOOD COUNT 9.2 10^3/ul (4.5-11.0)
[2016-09-16 23:00] LABS: ALB/GLOB RATIO 1.1 (1.1-1.8); ALKALINE PHOSPHATASE 126 U/L (38-133); ALT/SGPT 35 U/L (7-56); AMYLASE 171 U/L (35-125); AST/SGOT 48 U/L (15-59); BLOOD UREA NITROGEN 5 mg/dL (7-21); CALCIUM 8.4 mg/dL (8.4-10.5); CARBON DIOXIDE 25 mmol/L (21-33); CHLORIDE 83 mmol/L (98-107); GFR AFRICAN-AMERICAN > 60; GLUCOSE,RANDOM 95 mg/dL (70-110); LIPASE 342 U/L (23-300); POTASSIUM 3.2 mmol/L (3.6-5.0); SODIUM 123 mmol/L (132-148); TOTAL PROTEIN 7.9 g/dL (5.8-8.3)
[2016-09-16 23:02] LABS: INR 1.11 (0.93-1.08); PARTIAL THROMBOPLASTIN TIME 32.7 Seconds (23.7-30.8)
[2016-09-16 23:12] LABS: TROPONIN I < 0.01 ng/mL
[2016-09-17] MEDS ORDERED: Sodium Chloride 0.9% 1,000 ML IV SCH (00:19)
[2016-09-17] MEDS ORDERED: Albuterol 0.5% Inhal Sol (5 mg/ ml) 20 ml IH PRN (00:22)
--- NOTE | 2016-09-17 00:23 | CP.PCM.HP ---
History of Present Illness - History of Present Illness History of Present Illness: CC: EtOH Intoxication Latrice Royal is a 55yo M w/ a PMHx of hypertension, COPD, chronic alcohol abuse , GERD, chronic pancreatitis, and erosive esophagitis, chronic alcoholism, anemia, who [place] [facility] [place] excess alcohol consumption ; this time he reports diffuse abdominal pain and 2-3x "coffee ground emesis" not witnessed in the ER after consuming 12, 24 oz beers today. He reports being homeless and again reporting not taking meds because he can't afford them. Denies chest pain, shortness of breath, room spinning, melena/ hematochezia, or focal weakness. Denies fevers/chills, MIN, abdominal pain, current N/V/D, dysuria/freq/ or lower extremity pain/swelling. Patient has not wretched or shown any signs of vomiting in the ER; is likely malingering for a place to stay as he is homeless. PMH: as above Surgical Hx: R incarcerated inguinal hernia repair and R orchiectomy SH: Daily alcohol use- drinks 12 24oz beers per day. Former heavy smoker- now smokes "1 cigarette" per day. Denies drug use. FH: Dad Rectal cancer, Mother: Ovarian CA Meds: None, frequently non-compliant and reports not being able to afford his meds. PMD: Dr. Alexander Present on Admission - Present on Admission Any Indicators Present on Admission: No History of DVT/PE: No History of Uncontrolled Diabetes: Yes Urinary Catheter: No Decubitus Ulcer Present: No Past Patient History - Infectious Disease Hx of Infectious Diseases: None - Tetanus Immunizations Tetanus Immunization: Unknown - Past Medical History & Family History Past Medical History?: Yes - Past Social History Smoking Status: Current Some Days Smoker - CARDIAC Hx Hypertension: Yes - PULMONARY Hx Chronic Obstructive Pulmonary Disease (COPD): Yes - NEUROLOGICAL Hx Neurological Disorder: No HX Cerebrovascular Accident: No - HEENT Hx HEENT Problems: No - RENAL Hx Chronic Kidney Disease: No - ENDOCRINE/METABOLIC Hx Diabetes Mellitus Type 2: Yes - HEMATOLOGICAL/ONCOLOGICAL Hx Blood Disorders: Yes Hx Cancer: Yes (pt does not specify) - INTEGUMENTARY Hx Dermatological Problems: No - MUSCULOSKELETAL/RHEUMATOLOGICAL Hx Falls: Yes - GASTROINTESTINAL Hx Gall Bladder Disease: Yes Hx Pancreatitis: Yes - GENITOURINARY/GYNECOLOGICAL Hx Genitourinary Disorders: No - PSYCHIATRIC Hx Anxiety: Yes Hx Depression: Yes Hx Substance Use: Yes - SURGICAL HISTORY Hx Cardiac Catheterization: No Hx Coronary Stent: No Hx Musculoskeletal Surgery: Yes (Left hand surgery) - ANESTHESIA Hx Anesthesia: Yes Hx Anesthesia Reactions: No Meds Allergies/Adverse Reactions: Allergies Allergy/AdvReac Type Severity Reaction Status Date / Time Penicillins Allergy RASH Verified 09/16/16 21:03 Physical Exam - Constitutional Appears: Non-toxic Additional comments: patient is red flushed and nervous; all vital signs are WNL; patient denies AV hallucinations - Head Exam Head Exam: ATRAUMATIC - Eye Exam Eye Exam: EOMI - ENT Exam ENT Exam: Mucous Membranes Moist - Neck Exam Neck exam: Positive for: Full Rom. Negative for: Lymphadenopathy - Respiratory Exam Respiratory Exam: Clear to Auscultation Bilateral, NORMAL BREATHING PATTERN. absent: Rales, Rhonchi, Wheezes - Cardiovascular Exam Cardiovascular Exam: REGULAR RHYTHM - GI/Abdominal Exam GI & Abdominal Exam: Normal Bowel Sounds, Soft - Rectal Exam Rectal Exam: Deferred - Extremities Exam Extremities exam: Positive for: full ROM. Negative for: calf tenderness, pedal edema - Back Exam Back exam: NORMAL INSPECTION. absent: CVA tenderness (L), CVA tenderness (R) - Neurological Exam Neurological exam: Alert, CN II-XII Intact, Normal Gait (abnormal gait, ataxic) , Oriented x3 - Psychiatric Exam Psychiatric exam: Anxious - Skin Skin Exam: Warm Results - Vital Signs Recent Vital Signs: Last Vital Signs Temp 98.2 F 09/16/16 21:05 Pulse 86 09/16/16 21:05 Resp 18 09/16/16 21:05 BP 124/84 09/16/16 21:05 Pulse Ox 98 09/16/16 21:05 - Labs Result Diagrams: 09/16/16 22:42 09/16/16 22:42 Assessment & Plan - Assessment and Plan (Free Text) Assessment: 55yo M admitted for EtOH intoxication EtOH Abuse likely withdrawal CIWA Ativan PRN Thiamine/Folate Counseling Given IVF Hyponatremia/Hypochloremia/Hypokalemia -likely from chronic EtOH abuse -will give IVF; check in AM -patient is asymptomatic otherwise -potassium repleted in the ER Chronic pancreatitis -IVF 125ml/hr NS -counseling given on EtOH abuse; patient has no intention to quit -patient would benefit greatly from naltrexone; started daily -Lipase/Amylase slightly elevated hypertension -Hydralazine PRN -Lisnopril 2.5mg daily COPD -PRN Albuterol GERD w/ erosive esophagitis -Pepcid, Maalox anemia most likely 2/2 to EtOH abuse -Will monitor, CBC stable from previous admissions -no hematemesis in ER Proph Pepcid SCD Fall Risk Heart Healthy Diet Case Discussed with Dr. Ondina Grimaldo PGY1 Night Float Decision To Admit - Pt Status Changed To: Hospital Disposition Of: Observation - . Bed Request Type: Med/Surg Admitting Physician: Oren Nj MD
[2016-09-17] MEDS ORDERED: Alum-Mag Hydrox-Simethicone Susp (30 mL) PO PRN (00:26)
[2016-09-17] MEDS ORDERED: Albuterol 0.083% Inhal Sol (2.5 mg/3 mL) UD IH PRN (00:31)
[2016-09-17 07:45] LABS: ADD MANUAL DIFF? NO
[2016-09-17 07:52] LABS: BASO # 0.01 K/mm3 (0.0-2.0); BASO % 0.1 % (0.0-3.0); EOS % 0.1 % (1.5-5.0); GRAN # 4.96 (1.4-6.5); GRAN % 74.1 % (50.0-68.0); HEMATOCRIT 31.4 % (42.0-52.0); LYMPH # 0.9 (1.2-3.4); LYMPH % 13.9 % (22.0-35.0); MEAN CELL VOLUME 74.1 fL (80.0-105.0); MEAN CORPUSCULAR HEMOGLOBIN 24.3 pg (25.0-35.0); MEAN CORPUSCULAR HGB CONC 32.8 g/dl (31.0-37.0); MEAN PLATELET VOLUME 9.3 fl (7.0-11.0); MONO # 0.8 (0.1-0.6); MONO % 11.8 % (1.0-6.0); PLATELET COUNT 111 10^3/uL (120.0-450.0); RED CELL DISTRIBUTION WIDTH 19.2 % (11.5-14.5); WHITE BLOOD COUNT 6.7 10^3/ul (4.5-11.0)
[2016-09-17 07:59] LABS: ALB/GLOB RATIO 1.1 (1.1-1.8); ALKALINE PHOSPHATASE 117 U/L (38-133); ALT/SGPT 35 U/L (7-56); AST/SGOT 43 U/L (15-59); BLOOD UREA NITROGEN 4 mg/dL (7-21); CALCIUM 8.4 mg/dL (8.4-10.5); CARBON DIOXIDE 23 mmol/L (21-33); CHLORIDE 97 mmol/L (95-110); GFR AFRICAN-AMERICAN > 60; GLUCOSE,RANDOM 85 mg/dL (70-110); POTASSIUM 3.6 mmol/L (3.6-5.0); SODIUM 134 mmol/L (132-148); TOTAL PROTEIN 7.3 g/dL (5.8-8.3)
[2016-09-17] MEDS ORDERED: Thiamine 100 mg/ml Inj IV SCH (10:00)
[2016-09-17] MEDS ORDERED: Folic Acid 1 MG in Sodium Chloride 0.9% 50 ML IV SCH (10:00)
[2016-09-17] MEDS: Insulin Lispro 1 UNITS/0.01 ML SC SCH ×4 (12:54→22:00)
[2016-09-17] MEDS: Sodium Chloride 0.9% 1,000 ML IV SCH ×2 (12:57→23:01)
[2016-09-18] MEDS: Sodium Chloride 0.9% 1,000 ML IV SCH ×3 (00:40→18:42)
[2016-09-18 08:21] LABS: ADD MANUAL DIFF? NO
[2016-09-18] MEDS: Insulin Lispro 1 UNITS/0.01 ML SC SCH ×4 (08:21→22:00)
[2016-09-18 08:25] LABS: BASO # 0.01 K/mm3 (0.0-2.0); BASO % 0.2 % (0.0-3.0); EOS % 0.7 % (1.5-5.0); GRAN # 3.63 (1.4-6.5); GRAN % 67.7 % (50.0-68.0); HEMATOCRIT 32.9 % (42.0-52.0); LYMPH # 1.2 (1.2-3.4); LYMPH % 22.5 % (22.0-35.0); MEAN CELL VOLUME 76.3 fL (80.0-105.0); MEAN CORPUSCULAR HEMOGLOBIN 24.1 pg (25.0-35.0); MEAN CORPUSCULAR HGB CONC 31.6 g/dl (31.0-37.0); MEAN PLATELET VOLUME 10.4 fl (7.0-11.0); MONO # 0.5 (0.1-0.6); MONO % 8.9 % (1.0-6.0); PLATELET COUNT 104 10^3/uL (120.0-450.0); RED CELL DISTRIBUTION WIDTH 19.6 % (11.5-14.5); WHITE BLOOD COUNT 5.4 10^3/ul (4.5-11.0)
[2016-09-18 08:41] LABS: ALB/GLOB RATIO 1.1 (1.1-1.8); ALKALINE PHOSPHATASE 109 U/L (38-133); ALT/SGPT 32 U/L (7-56); AST/SGOT 43 U/L (15-59); BILIRUBIN,TOTAL 1.5 mg/dL (0.2-1.3); BLOOD UREA NITROGEN 7 mg/dL (7-21); CALCIUM 8.5 mg/dL (8.4-10.5); CARBON DIOXIDE 27 mmol/L (21-33); CHLORIDE 100 mmol/L (98-107); GFR AFRICAN-AMERICAN > 60; GLUCOSE,RANDOM 88 mg/dL (70-110); POTASSIUM 3.5 mmol/L (3.6-5.0); SODIUM 134 mmol/L (132-148); TOTAL PROTEIN 6.9 g/dL (5.8-8.3)
[2016-09-18] MEDS ORDERED: Potassium Chloride 20 mEq ER Tab PO ONE (10:50)
--- NOTE | 2016-09-18 16:10 | CP.PCM.PN ---
<LakhwinderFreddie diaz - Last Filed: 09/18/16 16:06> Subjective - Date & Time of Evaluation Date of Evaluation: 09/18/16 Time of Evaluation: 10:35 - Subjective Subjective: Patient seen and examined. Patient is tremulous however improved from yesterday. He is normotensive, requesting Ativan this morning for anxiety. Tolerating liquid diet. Objective - Vital Signs/Intake and Output Vital Signs (last 24 hours): Temp Pulse Resp BP Pulse Ox 98.6 F 74 19 112/70 95 09/18/16 08:27 09/18/16 10:16 09/18/16 08:27 09/18/16 10:16 09/18/16 08:27 Intake and Output: 09/18/16 09/18/16 06:59 18:59 Intake Total 960 1040 Output Total 1050 500 Balance -90 540 - Medications Medications: Current Medications Acetaminophen (Tylenol 325mg Tab) 650 mg PO Q6H PRN PRN Reason: Fever >100.4 F Al Hydrox/Mg Hydrox/Simethicone (Maalox Plus 30 Ml) 30 ml PO Q8H PRN PRN Reason: Upset Stomach Albuterol Sulfate (Albuterol 0.083% Inhal Isa (2.5 Mg/3 Ml) Ud) 2.5 mg IH Q2H PRN PRN Reason: Shortness of Breath Chlordiazepoxide (Librium) 50 mg PO Q8H NINA PRN Reason: Protocol Last Admin: 09/18/16 10:15 Dose: 50 mg Folic Acid (Folic Acid) 1 mg PO DAILY [facility] Last Admin: 09/18/16 10:17 Dose: 1 mg Hydralazine HCl (Apresoline) 10 mg IVP Q6H PRN PRN Reason: High BP Sodium Chloride (Sodium Chloride 0.9%) 1,000 mls @ 100 mls/hr IV .Q10H NINA Last Admin: 09/18/16 15:47 Dose: 100 mls/hr Ibuprofen (Motrin Tab) 600 mg PO Q6H PRN PRN Reason: Pain, Mild (1-3) Last Admin: 09/17/16 21:24 Dose: 600 mg Insulin Human Lispro (Humalog) 0 units SC ACHS NINA PRN Reason: Protocol Last Admin: 09/18/16 12:34 Dose: Not Given Lisinopril (Zestril) 2.5 mg PO DAILY [facility] Last Admin: 09/18/16 10:16 Dose: 2.5 mg Lorazepam (Ativan) 2 mg IVP Q2H PRN; Protocol PRN Reason: EtOH Withdrawal Last Admin: 09/18/16 14:45 Dose: 2 mg Nicotine (Nicoderm Cq) 1 patch TD DAILY [facility] Last Admin: 09/18/16 10:17 Dose: 1 patch Ondansetron HCl (Zofran Inj) 4 mg IVP Q4H PRN PRN Reason: Nausea/Vomiting Last Admin: 09/17/16 21:25 Dose: 4 mg Pantoprazole Sodium (Protonix Inj) 40 mg IVP DAILY [facility] Last Admin: 09/18/16 10:15 Dose: 40 mg Thiamine HCl (Vitamin B1 Tab) 100 mg PO DAILY [facility] Last Admin: 09/18/16 10:17 Dose: 100 mg - Labs Labs: 09/18/16 08:00 09/18/16 08:00 PT 12.0 Seconds (9.9-11.8) H 09/16/16 22:42 INR 1.11 (0.93-1.08) H 09/16/16 22:42 APTT 32.7 Seconds (23.7-30.8) H 09/16/16 22:42 - Constitutional Appears: Non-toxic, No Acute Distress - Head Exam Head Exam: ATRAUMATIC, NORMOCEPHALIC - Eye Exam Eye Exam: EOMI, PERRL - ENT Exam ENT Exam: Mucous Membranes Moist - Neck Exam Neck Exam: Full ROM, Normal Inspection - Respiratory Exam Respiratory Exam: Clear to Ausculation Bilateral. absent: Rales, Rhonchi, Wheezes - Cardiovascular Exam Cardiovascular Exam: REGULAR RHYTHM, +S1, +S2 - GI/Abdominal Exam GI & Abdominal Exam: Soft, Normal Bowel Sounds. absent: Tenderness - Extremities Exam Extremities Exam: Full ROM. absent: Calf Tenderness, Pedal Edema - Neurological Exam Neurological Exam: Alert, Awake, Oriented x3 - Psychiatric Exam Psychiatric exam: Normal Affect, Normal Mood - Skin Skin Exam: Dry, Warm Assessment and Plan - Assessment and Plan (Free Text) Assessment: 55yo M admitted for EtOH intoxication alcohol withdrawal CIWA librium 50q8 Ativan PRN Thiamine/Folate PO Counseling Given IVF Chronic pancreatitis -continue IVF -counseling given on EtOH abuse; patient has no intention to quit -Lipase/Amylase slightly elevated hypertension -Hydralazine PRN -Lisnopril 2.5mg daily COPD -PRN Albuterol GERD w/ erosive esophagitis -Pepcid, Maalox anemia most likely 2/2 to EtOH abuse -Will monitor, CBC stable from previous admissions -no hematemesis in ER Proph Pepcid SCD Fall Risk Heart Healthy Diet Patient seen and discussed with attending <Dale Narvaez - Last Filed: 09/18/16 17:01> Objective - Vital Signs/Intake and Output Vital Signs (last 24 hours): Temp Pulse Resp BP Pulse Ox 98.5 F 75 20 120/80 96 09/18/16 16:00 09/18/16 16:00 09/18/16 16:00 09/18/16 16:00 09/18/16 16:00 Intake and Output: 09/18/16 09/18/16 06:59 18:59 Intake Total 960 1040 Output Total 1050 500 Balance -90 540 - Medications Medications: Current Medications Acetaminophen (Tylenol 325mg Tab) 650 mg PO Q6H PRN PRN Reason: Fever >100.4 F Al Hydrox/Mg Hydrox/Simethicone (Maalox Plus 30 Ml) 30 ml PO Q8H PRN PRN Reason: Upset Stomach Albuterol Sulfate (Albuterol 0.083% Inhal Isa (2.5 Mg/3 Ml) Ud) 2.5 mg IH Q2H PRN PRN Reason: Shortness of Breath Chlordiazepoxide (Librium) 50 mg PO Q8H NINA PRN Reason: Protocol Last Admin: 09/18/16 10:15 Dose: 50 mg Folic Acid (Folic Acid) 1 mg PO DAILY [facility] Last Admin: 09/18/16 10:17 Dose: 1 mg Hydralazine HCl (Apresoline) 10 mg IVP Q6H PRN PRN Reason: High BP Sodium Chloride (Sodium Chloride 0.9%) 1,000 mls @ 100 mls/hr IV .Q10H [facility] Last Admin: 09/18/16 15:47 Dose: 100 mls/hr Ibuprofen (Motrin Tab) 600 mg PO Q6H PRN PRN Reason: Pain, Mild (1-3) Last Admin: 09/17/16 21:24 Dose: 600 mg Insulin Human Lispro (Humalog) 0 units SC ACHS NINA PRN Reason: Protocol Last Admin: 09/18/16 12:34 Dose: Not Given Lisinopril (Zestril) 2.5 mg PO DAILY [facility] Last Admin: 09/18/16 10:16 Dose: 2.5 mg Lorazepam (Ativan) 2 mg IVP Q2H PRN; Protocol PRN Reason: EtOH Withdrawal Last Admin: 09/18/16 14:45 Dose: 2 mg Nicotine (Nicoderm Cq) 1 patch TD DAILY [facility] Last Admin: 09/18/16 10:17 Dose: 1 patch Ondansetron HCl (Zofran Inj) 4 mg IVP Q4H PRN PRN Reason: Nausea/Vomiting Last Admin: 09/17/16 21:25 Dose: 4 mg Pantoprazole Sodium (Protonix Inj) 40 mg IVP DAILY [facility] Last Admin: 09/18/16 10:15 Dose: 40 mg Thiamine HCl (Vitamin B1 Tab) 100 mg PO DAILY [facility] Last Admin: 09/18/16 10:17 Dose: 100 mg - Labs Labs: 09/18/16 08:00 09/18/16 08:00 PT 12.0 Seconds (9.9-11.8) H 09/16/16 22:42 INR 1.11 (0.93-1.08) H 09/16/16 22:42 APTT 32.7 Seconds (23.7-30.8) H 09/16/16 22:42 Attending/Attestation - Attestation I have personally seen and examined this patient.: Yes I have fully participated in the care of the patient.: Yes I have reviewed all pertinent clinical information, including history, physical exam and plan: Yes Notes (Text): 09/18/16 16:58 55 year old male with past medical history of chronic ETOH abuse who presented with alcohol withdrawal and abdominal pain. Continue with librium nina and ativan prn for withdrawal symptoms. Continue with thiamine and folic acid. Patient was counselled on alcohol abstinence. Unfortunately he fails to comply. Abdominal pain was nonspecific and has resolved. His diet will be advanced as tolerated. Will replete and repeat potassium. He is on lisinopril for hypertension. Dale Narvaez MD Hospitalist.
[2016-09-19 00:06] VITALS: RESP 18
[2016-09-19] MEDS: Sodium Chloride 0.9% 1,000 ML IV SCH (03:16)
--- NOTE | 2016-09-19 05:51 | CP.PCM.PN ---
Subjective - Date & Time of Evaluation Date of Evaluation: 09/19/16 Time of Evaluation: 05:49 - Subjective Subjective: # 24 angiocath was inserted in left forearm. Objective - Vital Signs/Intake and Output Vital Signs (last 24 hours): Temp Pulse Resp BP Pulse Ox 98.7 F 80 18 158/97 H 96 09/19/16 00:00 09/19/16 04:32 09/19/16 00:00 09/19/16 00:00 09/19/16 00:00 Intake and Output: 09/18/16 09/19/16 18:59 06:59 Intake Total 1040 540 Output Total 500 800 Balance 540 -260 - Medications Medications: Current Medications Acetaminophen (Tylenol 325mg Tab) 650 mg PO Q6H PRN PRN Reason: Fever >100.4 F Al Hydrox/Mg Hydrox/Simethicone (Maalox Plus 30 Ml) 30 ml PO Q8H PRN PRN Reason: Upset Stomach Albuterol Sulfate (Albuterol 0.083% Inhal Isa (2.5 Mg/3 Ml) Ud) 2.5 mg IH Q2H PRN PRN Reason: Shortness of Breath Chlordiazepoxide (Librium) 50 mg PO Q8H [facility] PRN Reason: Protocol Last Admin: 09/19/16 02:43 Dose: 50 mg Folic Acid (Folic Acid) 1 mg PO DAILY [facility] Last Admin: 09/18/16 10:17 Dose: 1 mg Hydralazine HCl (Apresoline) 10 mg IVP Q6H PRN PRN Reason: High BP Sodium Chloride (Sodium Chloride 0.9%) 1,000 mls @ 100 mls/hr IV .Q10H [facility] Last Admin: 09/19/16 03:16 Dose: 100 mls/hr Ibuprofen (Motrin Tab) 600 mg PO Q6H PRN PRN Reason: Pain, Mild (1-3) Last Admin: 09/17/16 21:24 Dose: 600 mg Insulin Human Lispro (Humalog) 0 units SC ACHS [facility] PRN Reason: Protocol Last Admin: 09/18/16 22:00 Dose: Not Given Lisinopril (Zestril) 2.5 mg PO DAILY [facility] Last Admin: 09/18/16 10:16 Dose: 2.5 mg Lorazepam (Ativan) 2 mg IVP Q2H PRN; Protocol PRN Reason: EtOH Withdrawal Last Admin: 09/19/16 03:17 Dose: 2 mg Nicotine (Nicoderm Cq) 1 patch TD DAILY [facility] Last Admin: 09/18/16 10:17 Dose: 1 patch Ondansetron HCl (Zofran Inj) 4 mg IVP Q4H PRN PRN Reason: Nausea/Vomiting Last Admin: 09/18/16 23:50 Dose: 4 mg Pantoprazole Sodium (Protonix Inj) 40 mg IVP DAILY [facility] Last Admin: 09/18/16 10:15 Dose: 40 mg Thiamine HCl (Vitamin B1 Tab) 100 mg PO DAILY [facility] Last Admin: 09/18/16 10:17 Dose: 100 mg - Labs Labs: 09/18/16 08:00 09/18/16 08:00 PT 12.0 Seconds (9.9-11.8) H 09/16/16 22:42 INR 1.11 (0.93-1.08) H 09/16/16 22:42 APTT 32.7 Seconds (23.7-30.8) H 09/16/16 22:42
[2016-09-19 07:19] LABS: ADD MANUAL DIFF? NO
[2016-09-19 07:22] LABS: BASO # 0.01 K/mm3 (0.0-2.0); BASO % 0.2 % (0.0-3.0); EOS # 0.1 (0.0-0.7); EOS % 2.8 % (1.5-5.0); GRAN # 2.67 (1.4-6.5); GRAN % 58.1 % (50.0-68.0); HEMATOCRIT 32.8 % (42.0-52.0); LYMPH # 1.3 (1.2-3.4); LYMPH % 29.1 % (22.0-35.0); MEAN CELL VOLUME 76.6 fL (80.0-105.0); MEAN CORPUSCULAR HEMOGLOBIN 24.5 pg (25.0-35.0); MEAN PLATELET VOLUME 9.6 fl (7.0-11.0); MONO # 0.5 (0.1-0.6); MONO % 9.8 % (1.0-6.0); PLATELET COUNT 98 10^3/uL (120.0-450.0); RED CELL DISTRIBUTION WIDTH 19.8 % (11.5-14.5); WHITE BLOOD COUNT 4.6 10^3/ul (4.5-11.0)
[2016-09-19 07:37] LABS: ALB/GLOB RATIO 1.1 (1.1-1.8); ALKALINE PHOSPHATASE 94 U/L (38-133); ALT/SGPT 33 U/L (7-56); AST/SGOT 39 U/L (15-59); BILIRUBIN,TOTAL 1.2 mg/dL (0.2-1.3); BLOOD UREA NITROGEN 5 mg/dL (7-21); CALCIUM 8.8 mg/dL (8.4-10.5); CARBON DIOXIDE 26 mmol/L (21-33); CHLORIDE 99 mmol/L (95-110); GFR AFRICAN-AMERICAN > 60; GLUCOSE,RANDOM 102 mg/dL (70-110); POTASSIUM 3.4 mmol/L (3.6-5.0); SODIUM 134 mmol/L (132-148); TOTAL PROTEIN 6.9 g/dL (5.8-8.3)
[2016-09-19 08:14] VITALS: BP 132/87; PULSE 60; TEMP 97.6; O2SAT 97
[2016-09-19] MEDS: Insulin Lispro 1 UNITS/0.01 ML SC SCH ×2 (08:28→12:31)
[2016-09-19] MEDS ORDERED: Potassium Chloride 20 mEq ER Tab PO ONE (08:55)
--- NOTE | 2016-09-19 15:44 | CP.PCM.DIS ---
Provider - Provider Date of Admission: 09/17/16 12:13 Attending physician: Alaina Goel MD Primary care physician: Tommie Alexander MD Time Spent in preparation of Discharge (in minutes): 35 Diagnosis - Discharge Diagnosis (1) ETOH abuse Status: Chronic Priority: Medium Hospital Course - Lab Results Lab Results: Most Recent Lab Values WBC 4.6 10^3/ul (4.5-11.0) 09/19/16 06:40 RBC 4.28 10^6/uL (3.5-6.1) 09/19/16 06:40 Hgb 10.5 gm/dL (14.0-18.0) L 09/19/16 06:40 Hct 32.8 % (42.0-52.0) L 09/19/16 06:40 MCV 76.6 fL (80.0-105.0) L 09/19/16 06:40 MCH 24.5 pg (25.0-35.0) L 09/19/16 06:40 MCHC 32.0 g/dl (31.0-37.0) 09/19/16 06:40 RDW 19.8 % (11.5-14.5) H 09/19/16 06:40 Plt Count 98 10^3/uL (120.0-450.0) L 09/19/16 06:40 MPV 9.6 fl (7.0-11.0) 09/19/16 06:40 Gran % 58.1 % (50.0-68.0) 09/19/16 06:40 Lymph % (Auto) 29.1 % (22.0-35.0) 09/19/16 06:40 Carson % (Auto) 9.8 % (1.0-6.0) H 09/19/16 06:40 Eos % (Auto) 2.8 % (1.5-5.0) 09/19/16 06:40 Baso % (Auto) 0.2 % (0.0-3.0) 09/19/16 06:40 Gran # 2.67 (1.4-6.5) 09/19/16 06:40 Lymph # 1.3 (1.2-3.4) 09/19/16 06:40 Carson # 0.5 (0.1-0.6) 09/19/16 06:40 Eos # 0.1 (0.0-0.7) 09/19/16 06:40 Baso # 0.01 K/mm3 (0.0-2.0) 09/19/16 06:40 PT 12.0 Seconds (9.9-11.8) H 09/16/16 22:42 INR 1.11 (0.93-1.08) H 09/16/16 22:42 APTT 32.7 Seconds (23.7-30.8) H 09/16/16 22:42 Sodium 134 mmol/L (132-148) 09/19/16 06:40 Potassium 3.4 mmol/L (3.6-5.0) L 09/19/16 06:40 Chloride 99 mmol/L (95-110) 09/19/16 06:40 Carbon Dioxide 26 mmol/L (21-33) 09/19/16 06:40 Anion Gap 12 (10-20) 09/19/16 06:40 BUN 5 mg/dL (7-21) L 09/19/16 06:40 Creatinine 0.7 mg/dL (0.5-1.4) 09/19/16 06:40 Est GFR ( Amer) > 60 09/19/16 06:40 Est GFR (Non-Af Amer) > 60 09/19/16 06:40 POC Glucose (mg/dL) 129 mg/dL (65-110) H 09/19/16 11:39 Random Glucose 102 mg/dL (70-110) 09/19/16 06:40 Calcium 8.8 mg/dL (8.4-10.5) 09/19/16 06:40 Total Bilirubin 1.2 mg/dL (0.2-1.3) 09/19/16 06:40 AST 39 U/L (15-59) 09/19/16 06:40 ALT 33 U/L (7-56) 09/19/16 06:40 Alkaline Phosphatase 94 U/L (38-133) 09/19/16 06:40 Lactate Dehydrogenase 432 U/L (333-699) 09/16/16 22:42 Total Creatine Kinase 143 U/L (35-230) 09/16/16 22:42 Troponin I < 0.01 ng/mL 09/16/16 22:42 Total Protein 6.9 g/dL (5.8-8.3) 09/19/16 06:40 Albumin 3.5 g/dL (3.0-4.8) 09/19/16 06:40 Globulin 3.3 gm/dL 09/19/16 06:40 Albumin/Globulin Ratio 1.1 (1.1-1.8) 09/19/16 06:40 Amylase 171 U/L (35-125) H 09/16/16 22:42 Lipase 342 U/L (23-300) H 09/16/16 22:42 Alcohol, Quantitative 266 mg/dL (0-10) H 09/16/16 22:42 - Hospital Course Hospital Course: Latrice Royal is a 55yo M w/ a PMHx of hypertension, COPD, chronic alcohol abuse , GERD, chronic pancreatitis, and erosive esophagitis, chronic alcoholism, anemia, who reports to [facility] [place] after excess alcohol consumption; this time he reports diffuse abdominal pain and 2-3x "coffee ground emesis" not witnessed in the ER after consuming 12, 24 oz beers today. He reports being homeless and again reporting not taking meds because he can't afford them. Denies chest pain, shortness of breath, room spinning, melena/hematochezia, or focal weakness. Denies fevers/chills, MIN, abdominal pain, current N/V/D, dysuria /freq/ or lower extremity pain/swelling. Patient has not wretched or shown any signs of vomiting in the ER. The patient was admitted for alcohol withdrawal. He was started on IVF, Thiamine and folate. CIWA protocol was ordered. The patient was started on Librium standing with Ativan PRN. The patient remained fully oriented during admission. Mild tremors were noted on day one and two. He reports abdominal pain but did not experience any vomiting or bloody stools. Patient tolerated a soft Hepatic/altered diet. He is advised on the detriments of alcohol abuse and the importance of abstaining from further alcohol consumption. Patient is discharged with rx for Librium which he is instructed to take to relieve symptoms of alcohol withdrawal. Discharge Exam - Head Exam Head Exam: ATRAUMATIC, NORMOCEPHALIC - Eye Exam Eye Exam: EOMI, PERRL - ENT Exam ENT Exam: Mucous Membranes Moist - Respiratory Exam Respiratory Exam: Clear to PA & Lateral. absent: Rales, Rhonchi - Cardiovascular Exam Cardiovascular Exam: REGULAR RHYTHM, +S1, +S2 - GI/Abdominal Exam GI & Abdominal Exam: Normal Bowel Sounds, Soft - Extremities Exam Extremities exam: full ROM, pedal pulses present - Neurological Exam Neurological exam: Alert, Oriented x3 - Psychiatric Exam Psychiatric exam: Normal Affect, Normal Mood - Skin Skin Exam: Dry, Warm Discharge Plan - Discharge Medications Prescriptions: chlordiazePOXIDE [Chlordiazepoxide HCl] 5 mg PO TID #6 cap Folic Acid 1 mg PO DAILY #30 tab Multivitamin [Multi-Day Vitamins] 1 each PO DAILY #30 tablet Pantoprazole Sodium [Protonix] 40 mg PO DAILY #30 ect Thiamine [Vitamin B-1] 100 mg PO DAILY #30 tab - Follow Up Plan Condition: FAIR Disposition: HOME/ ROUTINE Referrals: Tommie Alexander MD [Primary Care Provider] -
== END 2016-09-19 17:32 | disposition home or self-care (01) | DRG 750 ==
LOC: ED 20:36 → ERH 23:33 → 3RNO 09-17 02:46 → OBSVTOIN 09-17 12:13 → 3RNO 09-18 06:07
PROVIDERS: ADMIT Internal Medicine; ATTEND Internal Medicine
DX: F10.239 Alcohol dependence with withdrawal, unspecified (principal); E87.1 Hypo-osmolality and hyponatremia; E87.8 Other disorders of electrolyte and fluid balance, not elsewhere classified; E87.6 Hypokalemia; J44.9 Chronic obstructive pulmonary disease, unspecified; K86.1 Other chronic pancreatitis; K21.0 Gastro-esophageal reflux disease with esophagitis; D64.9 Anemia, unspecified; Y90.8 Blood alcohol level of 240 mg/100 ml or more; I10 Essential (primary) hypertension; F17.210 Nicotine dependence, cigarettes, uncomplicated; Z88.0 Allergy status to penicillin

== ENCOUNTER 2016-09-30 23:06 | Emergency (ER) | payer MEDICAID ==
[2016-09-30 23:44] VITALS: BMI 30.5
--- NOTE | 2016-10-01 00:48 | ED PDOC ---
Arrival/HPI - General Chief Complaint: Abnormal Skin Integrity Time Seen by Provider: 10/01/16 00:39 Historian: Patient - History of Present Illness Narrative History of Present Illness (Text): 10/01/16 00:44 This 55 yo male with pmh alcohol abuse, presents to this ED c/o right finger burn, and right forearm rash. Patient admits sleeping in a friends garage. Patient is requesting ABX cream for his finger wound. Denies fever, sob, cp. Denies other complains. Time/Duration: Other (2 days) Context: Home Past Medical History - Provider Review Nursing Documentation Reviewed: Yes - Past History Past History: No Previous - Infectious Disease Hx of Infectious Diseases: None - Tetanus Immunization Tetanus Immunization: Unknown - Reproductive Currently : No - Cardiac Hx Hypertension: Yes - Pulmonary Hx Chronic Obstructive Pulmonary Disease (COPD): Yes - Neurological HX Cerebrovascular Accident: No - HEENT Hx HEENT Disorder: No - Renal Hx Renal Disorder: No - Endocrine/Metabolic Hx Diabetes Mellitus Type 2: Yes - Hematological/Oncological Hx Blood Disorders: Yes Hx Cancer: Yes (pt does not specify) - Integumentary Hx Dermatological Disorder: No - Musculoskeletal/Rheumatological Hx Falls: Yes - Gastrointestinal Hx Gall Bladder Disease: Yes Hx Pancreatitis: Yes - Genitourinary/Gynecological Hx Genitourinary Disorders: No - Psychiatric Hx Anxiety: Yes Hx Depression: Yes Hx Substance Use: Yes - Surgical History Hx Cardiac Catheterization: No Hx Coronary Stent: No Hx Musculoskeletal Surgery: Yes (Left hand surgery) - Anesthesia Hx Anesthesia: Yes Hx Anesthesia Reactions: No - Suicidal Assessment Feels Threatened In Home Enviroment: No Family/Social History - Physician Review Nursing Documentation Reviewed: Yes Family/Social History: No Known Family HX Smoking Status: Current Some Days Smoker Hx Alcohol Use: Yes Amount per day: 10 Hx Substance Use: Yes Hx Substance Use Treatment: No Allergies/Home Meds Allergies/Adverse Reactions: Allergies Penicillins Allergy (Verified 09/30/16 23:45) RASH Review of Systems - Review of Systems Constitutional: Normal. absent: Fatigue, Weight Change, Fevers Eyes: Normal ENT: Normal Respiratory: Normal. absent: SOB, Cough Cardiovascular: Normal. absent: Chest Pain, Palpitations Gastrointestinal: Normal. absent: Abdominal Pain, Nausea, Vomiting Genitourinary Male: Normal. absent: Dysuria, Frequency, Hematuria Musculoskeletal: Normal. absent: Back Pain, Neck Pain Skin: Rash Neurological: Normal Endocrine: Normal Hemo/Lymphatic: Normal Psychiatric: Normal Physical Exam Vital Signs Temp Pulse Resp BP Pulse Ox 10/01/16 01:34 98.5 F 90 18 113/70 99 10/01/16 00:05 98.5 F 103 H 18 108/62 94 L Temperature: Afebrile Blood Pressure: Normal Pulse: Regular Respiratory Rate: Normal Appearance: Positive for: Well-Appearing, Non-Toxic, Comfortable Pain Distress: None Mental Status: Positive for: Alert and Oriented X 3 - Systems Exam Head: Present: Atraumatic, Normocephalic Pupils: Present: PERRL Extroacular Muscles: Present: EOMI Conjunctiva: Present: Normal Mouth: Present: Moist Mucous Membranes Neck: Present: Normal Range of Motion Respiratory/Chest: Present: Clear to Auscultation, Good Air Exchange. No: Respiratory Distress, Accessory Muscle Use Cardiovascular: Present: Regular Rate and Rhythm, Normal S1, S2. No: Murmurs Abdomen: Present: Normal Bowel Sounds. No: Tenderness, Distention, Peritoneal Signs Back: Present: Normal Inspection Upper Extremity: Present: Normal ROM, NORMAL PULSES, Neurovascularly Intact, Capillary Refill < 2s, Other ((+) 1st degree small burn wound on right 3rd mid finger. No cellulitis, or discharge). No: Cyanosis, Edema Lower Extremity: Present: Normal Inspection, NORMAL PULSES, Normal ROM, Neurovascularly Intact, Capillary Refill < 2 s. No: Edema, CALF TENDERNESS Neurological: Present: GCS=15, CN II-XII Intact, Speech Normal, Motor Func Grossly Intact, Normal Sensory Function, Normal Cerebellar Funct, Gait Normal Skin: Present: Warm, Dry, Normal Color. No: Rashes Psychiatric: Present: Alert, Oriented x 3 Medical Decision Making ED Course and Treatment: 10/01/16 01:30 Re-evaluation. Patient feels better. Discussed results and plan with patient who expresses understanding. All questions answered and there is agreement with the plan to discharge home with instructions. Patient stable for discharge. Return if symptoms persist or worsen. Patient was recommended to clean wound with soap and water daily. Improve overall hygiene. Take OTC Benadryl for insect bite seen on right forearm. Apply Silvadene cream twice daily. To return to emergency if symptoms worsen. Re-evaluation Time: 01:30 Reassessment Condition: Re-examined, Improved - Medication Orders Current Medication Orders: Discontinued Medications Silver Sulfadiazine (Silvadene 1% 20 Gm) 1 ea TOP STAT STA Stop: 10/01/16 01:23 Last Admin: 10/01/16 01:39 Dose: 1 applic Disposition/Present on Arrival - Present on Arrival Any Indicators Present on Arrival: No History of DVT/PE: No History of Uncontrolled Diabetes: No Urinary Catheter: No History of Decub. Ulcer: No History Surgical Site Infection Following: None - Disposition Have Diagnosis and Disposition been Completed?: Yes Diagnosis: Rash and nonspecific skin eruption, Burn Disposition: HOME/ ROUTINE Disposition Time: 01:32 Condition: GOOD Discharge Instructions (ExitCare): Superficial Burn (ED), Acute Rash (ED) Additional Instructions: Call private doctor for follow up visit and wound check in 1-2 days. Take medication as instructed. Return to emergency if symptoms worsen. Apply Silvadene cream on fingers twice daily. Referrals: Freddie Stanford, [Primary Care Provider] - Follow up with primary [facility] [Outside] - Follow up with primary [facility] [Outside] - Follow up with primary
[2016-10-01 01:00] VITALS: RESP 18; TEMP 98.5
[2016-10-01] MEDS ORDERED: Silver Sulfadiazine 1% Cream (20 gm) TOP STA (01:22)
[2016-10-01 01:35] VITALS: BP 113/70; PULSE 90; O2SAT 99
== END 2016-10-01 01:57 | disposition home or self-care (01) ==
LOC: ED 23:06
DX: R21 Rash and other nonspecific skin eruption (principal); T23.121A Burn of first degree of single right finger (nail) except thumb, initial encounter; X08.8XXA Exposure to other specified smoke, fire and flames, initial encounter

== ENCOUNTER 2016-10-07 20:03 | Inpatient (IN) | payer MEDICAID ==
--- NOTE | 2016-10-07 21:08 | ED PDOC ---
Arrival/HPI - General Chief Complaint: Alcohol Ingestion Time Seen by Provider: 10/07/16 20:46 Historian: Patient, EMS - History of Present Illness Time/Duration: Prior to Arrival Symptom Onset: Gradual Symptom Course: Unchanged Associated Symptoms (Text): 10/07/16 21:06 Well-known to the emergency department staff. Drinking this afternoon. Complains of nausea and vomiting after eating a hot dog. On exam he has multiple insect bites over his entire body. His left upper arm is infected with a large cellulitis. Past Medical History - Past History Past History: No Previous - Infectious Disease Hx of Infectious Diseases: None - Tetanus Immunization Tetanus Immunization: Unknown - Reproductive Currently : No - Cardiac Hx Cardiac Disorders: Yes Hx Hypertension: Yes - Pulmonary Hx Respiratory Disorders: Yes Hx Chronic Obstructive Pulmonary Disease (COPD): Yes - Neurological Hx Neurological Disorder: No HX Cerebrovascular Accident: No - HEENT Hx HEENT Disorder: No - Renal Hx Renal Disorder: No - Endocrine/Metabolic Hx Endocrine Disorders: Yes Hx Diabetes Mellitus Type 2: Yes - Hematological/Oncological Hx Blood Disorders: Yes Hx Cancer: Yes (pt does not specify) - Integumentary Hx Dermatological Disorder: No - Musculoskeletal/Rheumatological Hx Musculoskeletal Disorders: Yes Hx Falls: Yes - Gastrointestinal Hx Gastrointestinal Disorders: Yes Hx Gall Bladder Disease: Yes Hx Pancreatitis: Yes - Genitourinary/Gynecological Hx Genitourinary Disorders: No - Psychiatric Hx Psychophysiologic Disorder: Yes Hx Anxiety: Yes Hx Depression: Yes Hx Substance Use: Yes - Surgical History Hx Cardiac Catheterization: No Hx Coronary Stent: No Hx Musculoskeletal Surgery: Yes (Left hand surgery) - Anesthesia Hx Anesthesia: Yes Hx Anesthesia Reactions: No - Suicidal Assessment Feels Threatened In Home Enviroment: No Family/Social History - Physician Review Nursing Documentation Reviewed: Yes Family/Social History: Unknown Family HX Smoking Status: Current Some Days Smoker Hx Alcohol Use: Yes Frequency of alcohol use: Daily Amount per day: 10 Hx Substance Use: Yes Hx Substance Use Treatment: No Allergies/Home Meds Allergies/Adverse Reactions: Allergies Penicillins Allergy (Verified 09/30/16 23:45) RASH Home Medications: Home Meds Medication Instructions Recorded Confirmed Unobtainable 10/08/16 10/08/16 Review of Systems - Physician Review All systems were reviewed & negative as marked: Yes - Review of Systems Constitutional: absent: Fevers Respiratory: Normal Cardiovascular: Normal Gastrointestinal: Normal Physical Exam Vital Signs Temp Pulse Resp BP Pulse Ox 10/08/16 05:58 91 H 16 116/70 95 10/08/16 01:15 98.4 F 74 18 122/80 98 10/07/16 20:09 98.6 F 89 19 143/89 97 Temperature: Afebrile Blood Pressure: Normal Pulse: Regular Respiratory Rate: Normal Appearance: Positive for: Well-Appearing, Non-Toxic, Other (Chronically ill- appearing foul-smelling and unkempt) Pain Distress: None Mental Status: Positive for: Alert and Oriented X 3 - Systems Exam Head: Present: Atraumatic, Normocephalic Pupils: Present: PERRL Extroacular Muscles: Present: EOMI Conjunctiva: Present: Normal Mouth: Present: Dry Respiratory/Chest: Present: Clear to Auscultation, Good Air Exchange, Decreased Breath Sounds. No: Respiratory Distress, Accessory Muscle Use Cardiovascular: Present: Regular Rate and Rhythm, Normal S1, S2. No: Murmurs Abdomen: Present: Normal Bowel Sounds. No: Tenderness, Distention, Peritoneal Signs, Rebound, Guarding Upper Extremity: Present: Normal Inspection. No: Cyanosis, Edema Lower Extremity: Present: Normal Inspection. No: Edema Neurological: Present: GCS=15, CN II-XII Intact, Speech Normal Skin: Present: Warm, Dry, Normal Color, Other (Multiple insect bites with left upper arm cellulitis as above). No: Rashes Psychiatric: Present: Alert, Oriented x 3, Normal Insight, Normal Concentration Medical Decision Making ED Course and Treatment: 10/07/16 22:23 Care of this patient is endorsed to the night emergency department physician pending lab work reevaluation and final disposition 10/08/16 07:10 Discussed with who except to her service - Lab Interpretations Lab Results: 10/07/16 22:00 10/07/16 22:00 Lab Results 10/07/16 22:00: Alcohol, Quantitative 294 H 10/07/16 22:00: Sodium 144, Potassium 4.2, Chloride 105, Carbon Dioxide 25, Anion Gap 18, BUN 9, Creatinine 0.7, Est GFR ( Amer) > 60, Est GFR (Non- Af Amer) > 60, Random Glucose 86, Calcium 8.2 L, Total Bilirubin 0.6, AST 64 H, ALT 40, Alkaline Phosphatase 142 H, Lactate Dehydrogenase 636, Total Creatine Kinase 152, Troponin I < 0.01, Total Protein 8.0, Albumin 4.1, Globulin 3.9, Albumin/Globulin Ratio 1.1, Lipase 385 H 10/07/16 22:00: WBC 7.6 D, RBC 4.32, Hgb 10.6 L, Hct 32.9 L, MCV 76.2 L, MCH 24.5 L, MCHC 32.2, RDW 20.6 H, Plt Count 130, MPV 8.5, Gran % 72.1 H, Lymph % ( Auto) 18.6 L, [place] % (Auto) 4.2, Eos % (Auto) 4.7, Baso % (Auto) 0.4, Gran # 5.47, Lymph # 1.4, [place] # 0.3, Eos # 0.4, Baso # 0.03 - Medication Orders Current Medication Orders: Discontinued Medications Clindamycin Phosphate (Cleocin) Confirm Administered Dose 600 mg .ROUTE .STK- MED ONE Stop: 10/07/16 22:35 Multivitamins/Vitamin C 10 ml/Thiamine HCl 100 mg/ Folic Acid 1 mg/ Sodium Chloride 1,011.2 mls @ 1,000 mls/hr IV .Q1H1M ONE Stop: 10/07/16 22:03 Last Admin: 10/07/16 23:28 Dose: 1,000 mls/hr Clindamycin Phosphate 600 mg/ (Sodium Chloride) 54 mls @ 108 mls/hr IVPB STAT STA PRN Reason: Protocol Stop: 10/07/16 21:33 Last Admin: 10/07/16 22:39 Dose: 108 mls/hr Lorazepam (Ativan) 2 mg IVP ONCE ONE Stop: 10/08/16 07:08 Disposition/Present on Arrival - Present on Arrival Any Indicators Present on Arrival: No History of DVT/PE: No History of Uncontrolled Diabetes: No Urinary Catheter: No History of Decub. Ulcer: No History Surgical Site Infection Following: None - Disposition Have Diagnosis and Disposition been Completed?: Yes Diagnosis: Alcohol abuse, Cellulitis, Withdrawal symptoms, alcohol Disposition: HOSPITALIZED Disposition Time: 07:09 Patient Plan: Admission, Telemetry Patient Problems: Current Active Problems Problem Status Onset Cellulitis Acute Withdrawal symptoms, alcohol Acute ETOH abuse Chronic Condition: STABLE Discharge Instructions (ExitCare): Cellulitis (ED) Referrals: Reese Alexander MD [Primary Care Provider] - Follow up with primary
[2016-10-07] MEDS ORDERED: Clindamycin 150 mg/mL Inj ONE (22:34)
[2016-10-07 22:55] LABS: BASO # 0.03 K/mm3 (0.0-2.0); BASO % 0.4 % (0.0-3.0); EOS # 0.4 (0.0-0.7); EOS % 4.7 % (1.5-5.0); GRAN # 5.47 (1.4-6.5); GRAN % 72.1 % (50.0-68.0); HEMOGLOBIN 10.6 gm/dL (14.0-18.0); LYMPH # 1.4 (1.2-3.4); LYMPH % 18.6 % (22.0-35.0); MEAN CELL VOLUME 76.2 fL (80.0-105.0); MEAN CORPUSCULAR HEMOGLOBIN 24.5 pg (25.0-35.0); MEAN CORPUSCULAR HGB CONC 32.2 g/dl (31.0-37.0); MEAN PLATELET VOLUME 8.5 fl (7.0-11.0); MONO # 0.3 (0.1-0.6); MONO % 4.2 % (1.0-6.0); PLATELET COUNT 130 10^3/uL (120.0-450.0); RBC 4.32 10^6/uL (3.5-6.1); RED CELL DISTRIBUTION WIDTH 20.6 % (11.5-14.5); WHITE BLOOD COUNT 7.6 10^3/ul (4.5-11.0)
[2016-10-07 23:01] LABS: ALB/GLOB RATIO 1.1 (1.1-1.8); ALBUMIN 4.1 g/dL (3.0-4.8); ALT/SGPT 40 U/L (7-56); AST/SGOT 64 U/L (15-59); BLOOD UREA NITROGEN 9 mg/dL (7-21); CALCIUM 8.2 mg/dL (8.4-10.5); GFR AFRICAN-AMERICAN > 60; GFR NON-AFRICAN AMERICAN > 60; LIPASE 385 U/L (23-300)
[2016-10-07 23:15] LABS: TROPONIN I < 0.01 ng/mL
[2016-10-07] MEDS: Multivitamin (MVI) 10 ML, Thiamine 100 MG, Folic Acid 1 MG in Sodium Chloride 0.9% 1,00... IV ONE (23:28)
--- NOTE | 2016-10-07 23:50 | ED PDOC ---
Physical Exam Vital Signs Reviewed: Yes Vital Signs Temp Pulse Resp BP Pulse Ox 10/08/16 05:58 91 H 16 116/70 95 10/08/16 01:15 98.4 F 74 18 122/80 98 10/07/16 20:09 98.6 F 89 19 143/89 97 Temperature: Afebrile Blood Pressure: Normal Pulse: Regular Respiratory Rate: Normal Appearance: Positive for: Well-Appearing, Non-Toxic, Comfortable Pain Distress: None Mental Status: Positive for: Alert and Oriented X 3 Medical Decision Making ED Course and Treatment: 10/07/16 23:00 Case endorsed to me by Dr. Coyle, pending labs, re-evaluation, and final disposition. Pt presented for alcohol intoxication. Pt noted to have cellulitis to left arm with insect bites. 10/08/16 07:[address] Coyle, pending sobriety, re-evaluation, and final disposition. - Lab Interpretations Lab Results: 10/07/16 22:00 10/07/16 22:00 Lab Results 10/07/16 22:00: Alcohol, Quantitative 294 H 10/07/16 22:00: Sodium 144, Potassium 4.2, Chloride 105, Carbon Dioxide 25, Anion Gap 18, BUN 9, Creatinine 0.7, Est GFR ( Amer) > 60, Est GFR (Non- Af Amer) > 60, Random Glucose 86, Calcium 8.2 L, Total Bilirubin 0.6, AST 64 H, ALT 40, Alkaline Phosphatase 142 H, Lactate Dehydrogenase 636, Total Creatine Kinase 152, Troponin I < 0.01, Total Protein 8.0, Albumin 4.1, Globulin 3.9, Albumin/Globulin Ratio 1.1, Lipase 385 H 10/07/16 22:00: WBC 7.6 D, RBC 4.32, Hgb 10.6 L, Hct 32.9 L, MCV 76.2 L, MCH 24.5 L, MCHC 32.2, RDW 20.6 H, Plt Count 130, MPV 8.5, Gran % 72.1 H, Lymph % ( Auto) 18.6 L, [place] % (Auto) 4.2, Eos % (Auto) 4.7, Baso % (Auto) 0.4, Gran # 5.47, Lymph # 1.4, [place] # 0.3, Eos # 0.4, Baso # 0.03 I have reviewed the lab results: Yes - Medication Orders Current Medication Orders: Discontinued Medications Clindamycin Phosphate (Cleocin) Confirm Administered Dose 600 mg .ROUTE .STK- MED ONE Stop: 10/07/16 22:35 Multivitamins/Vitamin C 10 ml/Thiamine HCl 100 mg/ Folic Acid 1 mg/ Sodium Chloride 1,011.2 mls @ 1,000 mls/hr IV .Q1H1M ONE Stop: 10/07/16 22:03 Last Admin: 10/07/16 23:28 Dose: 1,000 mls/hr Clindamycin Phosphate 600 mg/ (Sodium Chloride) 54 mls @ 108 mls/hr IVPB STAT STA PRN Reason: Protocol Stop: 10/07/16 21:33 Last Admin: 10/07/16 22:39 Dose: 108 mls/hr Disposition/Present on Arrival - Present on Arrival Any Indicators Present on Arrival: No History of DVT/PE: No History of Uncontrolled Diabetes: No Urinary Catheter: No History of Decub. Ulcer: No History Surgical Site Infection Following: None - Disposition Have Diagnosis and Disposition been Completed?: No Diagnosis: Alcohol abuse, Cellulitis Disposition Time: 07:00 Condition: STABLE Discharge Instructions (ExitCare): Cellulitis (ED) Referrals: Reese Alexander MD [Primary Care Provider] - Follow up with primary
[2016-10-08] MEDS ORDERED: Multivitamin (MVI) 10 ML, Thiamine 100 MG, Folic Acid 1 MG in Sodium Chloride 0.9% 1,00... IV ONE (07:39)
[2016-10-08 13:01] VITALS: BMI 27.4
[2016-10-08] MEDS ORDERED: Pneumococcal 23-Valent Vaccine IM ONE (13:01)
--- NOTE | 2016-10-08 16:42 | CP.PCM.HP ---
<Ahmet Del Castillozaid - Last Filed: 10/08/16 16:38> History of Present Illness - History of Present Illness History of Present Illness: Ahmet Del Castillo DO PGY - 1 CC: Nausea/Vomiting HPI: Mr. Royal is a 55 y/o man with a PMHx of alcohol abuse, HTN, COPD , GERD, chronic pancreatitis, erosive esophagitis, anemia, and Hep C admitted today after presenting to the ED for alcohol withdrawal. The pt states that yesterday he had new nausea/vomiting after drinking two 6 packs of beer over the course yesterday afternoon before presenting to the ED. He ordinarily drinks beer and has a hx of chronic alcohol use disorder. He vomited several times yesterday, non-bloody. He complains of abdominal pain, nausea, vomiting, and some mild dyspnea. The pt is currently living in a friends garage. Patient further complains of a rash, but denies any fevers, chills, diarrhea, hesitancy, frequency, burning on urination. PSHx: R incarcerated inguinal hernia repair, and R orchiectomy PMHx: See above Allergies: PCN SocHx: daily alcohol, mild cigarette smoker, denies illicits Fam Hx: non contributory Medications: None, frequently non-compliant Present on Admission - Present on Admission Any Indicators Present on Admission: No Review of Systems - Hematologic/Lymphatic Additional comments: ROS: Constitutional: pt denies fever, chills, generalized weakness ENT: pt denies dysphagia, otalgia, hearing deficit, rhinorrhea Eyes: pt denies sudden loss of vision, diplopia, blurred vision MSK: pt denies muscle stiffness, joint pain, extremity cramping Cardio: pt denies sob, heart murmur; Pulm: pt denies cough, hemoptysis, wheeze GI: +N/V; pt denies loss of appetite, constipation, melena, : pt denies burning on urination, urinary frequency, hematuria, urinary urgency Neuro: pt denies paresis, paresthesia, dizziness, watson, numbness, tingling Derm: +pt c/o lesions on b/l LE, UE, and back; pt denies skin changes, lesions, nail changes Endo: pt denies intolerance to heat/cold, diaphoresis, night sweats, polydipsia Psych: pt denies anxiety, depression, mood changes Past Patient History - Infectious Disease Hx of Infectious Diseases: None - Tetanus Immunizations Tetanus Immunization: Unknown - Past Medical History & Family History Past Medical History?: Yes - Past Social History Smoking Status: Current Some Days Smoker - CARDIAC Hx Cardiac Disorders: Yes Hx Hypertension: Yes (DENIES) - PULMONARY Hx Respiratory Disorders: Yes Hx Bronchitis: Yes Hx Chronic Obstructive Pulmonary Disease (COPD): Yes - NEUROLOGICAL Hx Neurological Disorder: No HX Cerebrovascular Accident: No - HEENT Hx HEENT Problems: No - RENAL Hx Chronic Kidney Disease: No - ENDOCRINE/METABOLIC Hx Endocrine Disorders: Yes Hx Diabetes Mellitus Type 2: Yes - HEMATOLOGICAL/ONCOLOGICAL Hx Blood Disorders: Yes Hx Cancer: Yes (pt does not specify) - INTEGUMENTARY Hx Dermatological Problems: Yes Other/Comment: GENERALIZED MULTIPLE REDDENED RASH TO WHOLE FACE AND CHEST,LOWER PART OF ABDOMINAL AREA. ALSO HAS GENERALIZED INSECT BITES ALL OVER ARMS AND LEGS AND BACK AND BODY. TATTOOS ALL OVER ARMS BACK AND LEGS. - MUSCULOSKELETAL/RHEUMATOLOGICAL Hx Musculoskeletal Disorders: Yes Hx Falls: Yes Hx Unsteady Gait: Yes - GASTROINTESTINAL Hx Gastrointestinal Disorders: Yes (GI BLEED) Hx Gall Bladder Disease: Yes Hx Pancreatitis: Yes Other/Comment: X2 HERNIA REPAIR - GENITOURINARY/GYNECOLOGICAL Hx Genitourinary Disorders: Yes (ORCHIECTOMY) Other/Comment: HEMATURIA - PSYCHIATRIC Hx Psychophysiologic Disorder: Yes (SUICIDAL,HOMELESSNESS,ETOH ABUSE,SMOKES 1 CIG A DAY.) Hx Anxiety: Yes Hx Depression: Yes Hx Substance Use: No (DENIES) - SURGICAL HISTORY Hx Surgeries: Yes (2 HERNIA SURGERIES) Hx Cardiac Catheterization: No Hx Coronary Stent: No Hx Musculoskeletal Surgery: Yes (Left hand surgery DENIES) - ANESTHESIA Hx Anesthesia: Yes Hx Anesthesia Reactions: No Meds Allergies/Adverse Reactions: Allergies Allergy/AdvReac Type Severity Reaction Status Date / Time Penicillins Allergy RASH Verified 09/30/16 23:45 Physical Exam - Additional Findings Additional findings: Physical Exam: Vitals: T 98.4 (oral, taken at 0115) HR 91 bm RR 16 BP 116/70 SpO2 ~95% on RA General: disheveled-appearing man in NAD. Actively retching. HEENT: no scleral icterus. Moist mucous membranes. Poor dentition. Neck: good active ROM. Lungs: CTAB. No wheezes or rales. No rhonchi. Heart: normal S1 and S2; rrr; no m/r/g Abdomen: s/nt/nd. Pt actively vomiting small amounts of clear fluid on exam. No palpable spleen. MSK: No pretibial edema Skin: multiple abrasions and excoriations across LEs bilaterally. 4 small excoriated 2mm papules in linear distribution over L thigh at midline. R and L UE significant for multiple groups of scabbed, excoriated papules in linear distribution. Papules associated with erythema and scale. R hand: old 2 cm burn over 2nd~DIP. Some purulent exudate. Neuro: AOx3. Obeys commands. Moves extremities past midline. Clear speech in content and tone. Psych: normal affect and mood. Results - Vital Signs Recent Vital Signs: Last Vital Signs Temp 98.4 F 10/08/16 12:21 Pulse 89 10/08/16 12:21 Resp 18 10/08/16 12:21 BP 121/81 10/08/16 12:21 Pulse Ox 99 10/08/16 10:00 - Labs Result Diagrams: 10/07/16 22:00 10/07/16 22:00 Assessment & Plan - Assessment and Plan (Free Text) Assessment: Assessment/Plan: 55 y.o. male with PMHx of chronic etoh use presents with complaints of nausea and vomiting. 1. Acute alcohol intoxication - Nausea/vomiting: Zofran prn - Abdominal pain: famotidine - Banana bag initiated in ED - Switch to Folate/Thiamine p.o. on the floors 2. Alcohol withdrawal - Ativan 2mg q2 - Librium 50 mg q8 - Zofran for N/V - Seizure, Fall, Aspiration precautions - NPO diet 3. Skin lesions 2/2 bed bugs vs scabies - Isolation precautions - Infection control consult 4. Chronic alcohol use disorder - advise patient on alcohol cessation 5. DVT/GI PPHXS - pepcid, scd's Case d/w attending, Dr. Goel <Alaina Goel - Last Filed: 10/08/16 17:26> Results - Vital Signs Recent Vital Signs: Last Vital Signs Temp 98.4 F 10/08/16 12:21 Pulse 89 10/08/16 12:21 Resp 18 10/08/16 12:21 BP 121/81 07/18/17 12:21 Pulse Ox 99 10/08/16 10:00 - Labs Result Diagrams: 10/07/16 22:00 10/07/16 22:00 Attending/Attestation - Attestation I have personally seen and examined this patient.: Yes I have fully participated in the care of the patient.: Yes I have reviewed all pertinent clinical information: Yes Notes (Text): 10/08/16 17:19 attending note; Patient seen and examined in ER. Patient is a 55-year-old male well-known to our service due to chronic alcohol abuse/intoxication.Patient was seen in ER last night. Patient was tremulous and admitted for withdrawal symptoms. Started on Ativan. Continue IV banana bag. continue Librium. Bug bite/ cellulitis; placed on contact isolation. continue IV antibiotics. ID evaluation requested. GI prophylaxis with Protonix. Patient is noncompliance with follow up. Complete alcohol cessation is strongly advised. Patient will Be referred to [facility] for follow-up upon discharge. 10/08/16 17:21 10/08/16 17:25
[2016-10-08 22:19] VITALS: RESP 20
[2016-10-08] MEDS: Multivitamin (MVI) 10 ML, Thiamine 100 MG, Folic Acid 1 MG in Sodium Chloride 0.9% 1,00... IV ONE (23:02)
[2016-10-08] MEDS: Multivitamin With Minerals Tab PO SCH (23:03)
[2016-10-08] MEDS: Vancomycin 1gm in NS 250ml 1 GM/250 ML BAG IVPB SCH (23:55)
[2016-10-09 06:37] LABS: INR 1.17 (0.93-1.08); PARTIAL THROMBOPLASTIN TIME 30.3 Seconds (23.7-30.8); PROTHROMBIN TIME 12.6 Seconds (9.9-11.8)
[2016-10-09 06:45] LABS: BASO # 0.03 K/mm3 (0.0-2.0); BASO % 0.5 % (0.0-3.0); EOS # 0.5 (0.0-0.7); EOS % 8.1 % (1.5-5.0); GRAN # 3.65 (1.4-6.5); GRAN % 60.7 % (50.0-68.0); HEMOGLOBIN 10.4 gm/dL (14.0-18.0); LYMPH # 1.4 (1.2-3.4); LYMPH % 22.6 % (22.0-35.0); MEAN CELL VOLUME 78.4 fL (80.0-105.0); MEAN CORPUSCULAR HEMOGLOBIN 24.2 pg (25.0-35.0); MEAN CORPUSCULAR HGB CONC 30.9 g/dl (31.0-37.0); MONO # 0.5 (0.1-0.6); MONO % 8.1 % (1.0-6.0); PLATELET COUNT 123 10^3/uL (120.0-450.0); RED CELL DISTRIBUTION WIDTH 20.4 % (11.5-14.5)
[2016-10-09 06:55] LABS: ALBUMIN 3.7 g/dL (3.0-4.8); ALT/SGPT 30 U/L (7-56); AST/SGOT 46 U/L (15-59); BLOOD UREA NITROGEN 10 mg/dL (7-21); CALCIUM 8.2 mg/dL (8.4-10.5); GFR AFRICAN-AMERICAN > 60; GFR NON-AFRICAN AMERICAN > 60
[2016-10-09] MEDS ORDERED: Permethrin 5% Cream(60 gm) TOP ONE (07:44)
[2016-10-09 07:48] LABS: MAGNESIUM 1.6 mg/dL (1.7-2.2)
[2016-10-09] MEDS: Multivitamin With Minerals Tab PO SCH (08:57)
[2016-10-09] MEDS ORDERED: Magnesium Sulfate 2 GM in Sodium Chloride 0.9% 100 ML IVPB ONE ×2 (09:27→09:29)
[2016-10-09] MEDS: Vancomycin 1gm in NS 250ml 1 GM/250 ML BAG IVPB SCH ×2 (13:38→23:07)
--- NOTE | 2016-10-09 18:50 | CP.PCM.PN ---
Subjective - Date & Time of Evaluation Date of Evaluation: 10/09/16 Time of Evaluation: 09:00 - Subjective Subjective: Pt s/e at bedside. He is feeling better, still itching b/l, still a little nauseas, but feels better. No new complaints. Objective - Vital Signs/Intake and Output Vital Signs (last 24 hours): Temp Pulse Resp BP Pulse Ox 98.0 F 67 20 126/84 94 L 10/09/16 16:00 10/09/16 18:00 10/09/16 16:00 10/09/16 16:00 10/09/16 16:00 Intake and Output: 10/09/16 10/09/16 06:59 18:59 Intake Total 0 2000 Output Total 600 Balance -600 2000 - Medications Medications: Current Medications Chlordiazepoxide (Librium) 50 mg PO Q8 SOPHIA PRN Reason: Protocol Last Admin: 10/09/16 13:40 Dose: 50 mg Chlordiazepoxide (Librium) 25 mg PO Q8 PRN; Protocol PRN Reason: Agitation Famotidine (Pepcid) 40 mg PO HS [facility] Last Admin: 10/08/16 21:52 Dose: 40 mg Folic Acid (Folic Acid) 1 mg PO DAILY [facility] Last Admin: 10/09/16 09:37 Dose: 1 mg Vancomycin HCl (Vancomycin 1gm) 1 gm in 250 mls @ 167 mls/hr IVPB Q12H SOPHIA PRN Reason: Protocol Stop: 10/17/16 23:31 Last Admin: 10/09/16 13:38 Dose: 167 mls/hr Lorazepam (Ativan) 2 mg IVP Q2 PRN; Protocol PRN Reason: Agitation Last Admin: 10/08/16 23:52 Dose: 2 mg Multivitamins/Minerals (Therapeutic-M Tab) 1 tab PO 0800 [facility] Last Admin: 10/09/16 08:57 Dose: 1 tab Ondansetron HCl (Zofran Inj) 4 mg IVP Q4H PRN PRN Reason: Nausea/Vomiting Last Admin: 10/09/16 09:37 Dose: 4 mg Thiamine HCl (Vitamin B1 Tab) 100 mg PO DAILY [facility] Last Admin: 10/09/16 09:37 Dose: 100 mg - Labs Labs: 10/09/16 05:00 10/09/16 05:00 PT 12.6 Seconds (9.9-11.8) H 10/09/16 05:00 INR 1.17 (0.93-1.08) H 10/09/16 05:00 APTT 30.3 Seconds (23.7-30.8) 10/09/16 05:00 - Additional Findings Additional findings: Physical Exam: Vitals: T 98.4 (oral, taken at 0115) HR 91 bm RR 16 BP 116/70 SpO2 ~95% on RA General: disheveled-appearing man in NAD. Actively retching. HEENT: no scleral icterus. Moist mucous membranes. Poor dentition. Neck: good active ROM. Lungs: CTAB. No wheezes or rales. No rhonchi. Heart: normal S1 and S2; rrr; no m/r/g Abdomen: s/nt/nd. Pt actively vomiting small amounts of clear fluid on exam. No palpable spleen. MSK: No pretibial edema Skin: multiple abrasions and excoriations across LEs bilaterally. 4 small excoriated 2mm papules in linear distribution over L thigh at midline. R and L UE significant for multiple groups of scabbed, excoriated papules in linear distribution. Papules associated with erythema and scale. R hand: old 2 cm burn over 2nd~DIP. Some purulent exudate. Neuro: AOx3. Obeys commands. Moves extremities past midline. Clear speech in content and tone. Psych: normal affect and mood. Assessment and Plan - Assessment and Plan (Free Text) Assessment: Assessment/Plan: 55 y.o. male with PMHx of chronic etoh use presents with complaints of nausea and vomiting. 1. Acute alcohol intoxication - Nausea/vomiting: Zofran prn - Abdominal pain: famotidine - Banana bag initiated in ED - Switch to Folate/Thiamine p.o. on the floors 2. Alcohol withdrawal - Ativan 2mg q2 - Librium 50 mg q8 - Zofran for N/V - Seizure, Fall, Aspiration precautions - NPO diet 3. Skin lesions 2/2 bed bugs vs scabies - Isolation precautions - Infection control consult - confirmed scabies - PErmethrin cream 4. Chronic alcohol use disorder - advise patient on alcohol cessation 5. DVT/GI PPHXS - pepcid, scd's
--- NOTE | 2016-10-10 05:29 | CON ---
The patient is seen in room 365, bed 1 early this morning. CHIEF COMPLAINT: Weakness. HISTORY OF PRESENT ILLNESS: This is a 55-year-old male with diabetes mellitus, hypertension, pancreatitis, history of sensitive Staph aureus bacteriemia, history of right hand cellulitis, history of chronic obstructive lung disease, erosive esophagitis, and history of hepatitis C who was admitted with diagnoses of cellulitis and alcohol withdrawal syndrome and infectious disease consultation requested. The patient states he also had itching in his rash and has had rash when itching. He has no fevers and chills. No nausea. No vomiting. No chest pain. PAST MEDICAL HISTORY: Significant for diabetes, alcoholism, pancreatitis, sensitive to Staph aureus bacteriemia, right hand cellulitis, chronic obstructive lung disease, erosive gastritis, and hepatitis C. PAST SURGICAL HISTORY: Significant for hernia surgery. ALLERGIES: THE PATIENT IS ALLERGIC TO PENICILLIN. HE DEVELOPES A RASH. PHYSICAL EXAMINATION: VITAL SIGNS: The patient is in bed with a temperature of 98, blood pressure is 140/80, and respiratory rate of 18. HEENT: Unremarkable. NECK: Supple. LUNGS: Decreased breath sounds. HEART: Normal S1 and S2. ABDOMEN: Soft and nontender. LABORATORY DATA: White count is 6, hemoglobin of 10, platelets of 123. BUN of 10 and creatinine of 0.7. Lipase is 385. Throat culture has gram-positive cocci. Coag negative staph by PNA FISH. ASSESSMENT AND PLAN: A 55-year-old male with diabetes mellitus, alcohol abuse, pancreatitis, sensitive to Staph aureus bacteriemia, history of right hand cellulitis, chronic obstructive lung disease, erosive esophagitis, and hepatitis C. On exam, he does have findings of scabies and rash that is consistent with it and no evidence of overt cellulitis, and the patient with coag negative staph bacteriemia most likely consistent with contamination only 1 bottle. The patient has no history of intravascular devices and we will treat the patient with vancomycin and will treat with patient with permethrin cream and follow with you. Riki Judd MD
[2016-10-10 07:17] LABS: BASO # 0.03 K/mm3 (0.0-2.0); BASO % 0.5 % (0.0-3.0); EOS # 0.7 (0.0-0.7); EOS % 10.7 % (1.5-5.0); GRAN % 58.3 % (50.0-68.0); HEMOGLOBIN 10.6 gm/dL (14.0-18.0); LYMPH # 1.4 (1.2-3.4); LYMPH % 21.5 % (22.0-35.0); MEAN CELL VOLUME 77.6 fL (80.0-105.0); MEAN CORPUSCULAR HEMOGLOBIN 24.7 pg (25.0-35.0); MEAN CORPUSCULAR HGB CONC 31.8 g/dl (31.0-37.0); MEAN PLATELET VOLUME 9.4 fl (7.0-11.0); MONO # 0.6 (0.1-0.6); PLATELET COUNT 125 10^3/uL (120.0-450.0); RBC 4.29 10^6/uL (3.5-6.1); RED CELL DISTRIBUTION WIDTH 20.9 % (11.5-14.5); WHITE BLOOD COUNT 6.3 10^3/ul (4.5-11.0)
[2016-10-10 07:29] LABS: ALB/GLOB RATIO 1.1 (1.1-1.8); ALBUMIN 3.9 g/dL (3.0-4.8); ALT/SGPT 33 U/L (7-56); AST/SGOT 45 U/L (15-59); BLOOD UREA NITROGEN 7 mg/dL (7-21); CALCIUM 8.8 mg/dL (8.4-10.5); GFR AFRICAN-AMERICAN > 60; GFR NON-AFRICAN AMERICAN > 60
[2016-10-10] MEDS: Multivitamin With Minerals Tab PO SCH (09:35)
[2016-10-10] MEDS: Vancomycin 1gm in NS 250ml 1 GM/250 ML BAG IVPB SCH (11:55)
--- NOTE | 2016-10-10 17:20 | CP.PCM.PN ---
Subjective - Date & Time of Evaluation Date of Evaluation: 10/10/16 Time of Evaluation: 09:30 - Subjective Subjective: Pt s/e at bedside. Patient has no new complaints, but still feels nauseas. Wants to eat, will advance to puree diet. Objective - Vital Signs/Intake and Output Vital Signs (last 24 hours): Temp Pulse Resp BP Pulse Ox 98.1 F 70 20 125/87 95 10/10/16 06:00 10/10/16 06:00 10/10/16 06:00 10/10/16 06:00 10/10/16 06:00 Intake and Output: 10/10/16 10/10/16 06:59 18:59 Intake Total 1160 960 Output Total 1200 400 Balance -40 560 - Medications Medications: Current Medications Chlordiazepoxide (Librium) 10 mg PO Q8 PRN; Protocol PRN Reason: Agitation Famotidine (Pepcid) 40 mg PO HS [facility] Last Admin: 10/09/16 21:40 Dose: 40 mg Folic Acid (Folic Acid) 1 mg PO DAILY [facility] Last Admin: 10/10/16 09:35 Dose: 1 mg Vancomycin HCl (Vancomycin 1gm) 1 gm in 250 mls @ 167 mls/hr IVPB Q12H [facility] PRN Reason: Protocol Stop: 10/17/16 23:31 Last Admin: 10/10/16 11:55 Dose: 167 mls/hr Lorazepam (Ativan) 2 mg IVP Q2 PRN; Protocol PRN Reason: Agitation Last Admin: 10/10/16 15:44 Dose: 2 mg Multivitamins/Minerals (Therapeutic-M Tab) 1 tab PO 0800 [facility] Last Admin: 10/10/16 09:35 Dose: 1 tab Ondansetron HCl (Zofran Inj) 4 mg IVP Q4H PRN PRN Reason: Nausea/Vomiting Last Admin: 10/10/16 15:45 Dose: 4 mg Thiamine HCl (Vitamin B1 Tab) 100 mg PO DAILY [facility] Last Admin: 10/10/16 09:35 Dose: 100 mg - Labs Labs: 10/10/16 05:50 10/10/16 05:50 PT 12.6 Seconds (9.9-11.8) H 10/09/16 05:00 INR 1.17 (0.93-1.08) H 10/09/16 05:00 APTT 30.3 Seconds (23.7-30.8) 10/09/16 05:00 - Additional Findings Additional findings: Vitals: T 98.4 (oral, taken at 0115) HR 91 bm RR 16 BP 116/70 SpO2 ~95% on RA General: disheveled-appearing man in NAD. Actively belching. HEENT: no scleral icterus. Moist mucous membranes. Poor dentition. Neck: good active ROM. Lungs: CTAB. No wheezes or rales. No rhonchi. Heart: normal S1 and S2; rrr; no m/r/g Abdomen: s/nt/nd. Pt actively vomiting small amounts of clear fluid on exam. No palpable spleen. MSK: No pretibial edema Skin: multiple abrasions and excoriations across LEs bilaterally. 4 small excoriated 2mm papules in linear distribution over L thigh at midline. R and L UE significant for multiple groups of scabbed, excoriated papules in linear distribution. Papules associated with erythema and scale. R hand: old 2 cm burn over 2nd~DIP. Some purulent exudate. Neuro: AOx3. Obeys commands. Moves extremities past midline. Clear speech in content and tone. Psych: normal affect and mood. Assessment and Plan - Assessment and Plan (Free Text) Assessment: Assessment/Plan: 55 y.o. male with PMHx of chronic etoh use presents with complaints of nausea and vomiting. 1. Acute alcohol intoxication - Nausea/vomiting: Zofran prn - Abdominal pain: famotidine - Banana bag initiated in ED - Switch to Folate/Thiamine p.o. on the floors 2. Alcohol withdrawal - Ativan 2mg q2 - Librium 50 mg q8 - Zofran for N/V - Seizure, Fall, Aspiration precautions - NPO diet 3. Skin lesions 2/2 bed bugs vs scabies - Isolation precautions - Infection control consult - confirmed scabies - PErmethrin cream 4. Chronic alcohol use disorder - advise patient on alcohol cessation 5. DVT/GI PPHXS - pepcid, scd's
--- NOTE | 2016-10-10 23:26 | PN ---
DATE: 10/10/2016. SUBJECTIVE: The patient is in bed, in no acute distress, nontoxic, no fevers, no chills. PHYSICAL EXAMINATION VITAL SIGNS: Temperature is 98, blood pressure is 153/95, respiratory rate of 20, heart rate of 67. HEENT: Unremarkable. NECK: Supple. LUNGS: Decreased breath sounds. HEART: Normal S1 and S2. LABORATORY DATA: Reveals a white count of 6.3, hemoglobin of 10 and platelets of 125. BUN of 7 and creatinine of 0.8. Blood cultures have coag-negative staph in 1 bottle, the second bottle is no growth. Urine culture is no growth. Review of orders reveals the patient to be on vancomycin. ASSESSMENT AND PLAN: He is a 55-year-old male with alcoholism, diabetes mellitus, hypertension, history of sensitive Staphylococcus aureus bacteremia, history of right-hand infection, chronic obstructive lung disease *------* erosive esophagitis and hepatitis C, now admitted with what appears to be a rash that is consistent with scabies, which he was treated for and mild cellulitis in his hand has resolved and coag-negative staph in the blood is consistent for the contamination with only 1 bottle and the patient who is alcoholic currently, he is at risk for developing of alcoholic withdrawal delirium tremens or seizures and post alcohol withdrawal pathology. We will discontinue vancomycin and follow the case closely, in case if he develops new infections. No active infections at this time. Riki Judd MD
[2016-10-11 06:25] LABS: BASO # 0.02 K/mm3 (0.0-2.0); BASO % 0.3 % (0.0-3.0); EOS # 0.5 (0.0-0.7); EOS % 8.2 % (1.5-5.0); GRAN # 3.86 (1.4-6.5); GRAN % 61.1 % (50.0-68.0); HEMOGLOBIN 10.9 gm/dL (14.0-18.0); LYMPH # 1.3 (1.2-3.4); LYMPH % 20.1 % (22.0-35.0); MEAN CELL VOLUME 74.9 fL (80.0-105.0); MEAN CORPUSCULAR HEMOGLOBIN 24.4 pg (25.0-35.0); MEAN CORPUSCULAR HGB CONC 32.6 g/dl (31.0-37.0); MONO # 0.7 (0.1-0.6); MONO % 10.3 % (1.0-6.0); PLATELET COUNT 134 10^3/uL (120.0-450.0); RBC 4.46 10^6/uL (3.5-6.1); RED CELL DISTRIBUTION WIDTH 19.3 % (11.5-14.5); WHITE BLOOD COUNT 6.3 10^3/ul (4.5-11.0)
[2016-10-11 07:11] LABS: ALBUMIN 3.8 g/dL (3.0-4.8); ALT/SGPT 28 U/L (7-56); AST/SGOT 39 U/L (15-59); BLOOD UREA NITROGEN 5 mg/dL (7-21); GFR AFRICAN-AMERICAN > 60; GFR NON-AFRICAN AMERICAN > 60
[2016-10-11 09:04] VITALS: BP 116/74; PULSE 69; TEMP 98.2; O2SAT 97
[2016-10-11] MEDS: Multivitamin With Minerals Tab PO SCH (09:11)
[2016-10-11] MEDS ORDERED: Potassium Chloride 20 mEq ER Tab PO STA (09:13)
== END 2016-10-11 12:06 | disposition home or self-care (01) | DRG 750 ==
LOC: ED 20:03 → ERH 10-08 07:08 → 3RNO 10-08 11:29
PROVIDERS: ADMIT Internal Medicine; ATTEND Internal Medicine
DX: F10.239 Alcohol dependence with withdrawal, unspecified (principal); L03.113 Cellulitis of right upper limb; J44.9 Chronic obstructive pulmonary disease, unspecified; B19.20 Unspecified viral hepatitis C without hepatic coma; I10 Essential (primary) hypertension; E11.9 Type 2 diabetes mellitus without complications; K86.1 Other chronic pancreatitis; B86 Scabies; K21.9 Gastro-esophageal reflux disease without esophagitis; D64.9 Anemia, unspecified; F17.210 Nicotine dependence, cigarettes, uncomplicated; B95.61 Methicillin susceptible Staphylococcus aureus infection as the cause of diseases classified elsewhere; Y90.8 Blood alcohol level of 240 mg/100 ml or more; Z91.19 Patient's noncompliance with other medical treatment and regimen; Z88.0 Allergy status to penicillin

== ENCOUNTER 2016-10-21 23:23 | Emergency (ER) | payer MEDICAID ==
[2016-10-21 23:23] VITALS: BMI 27.4
[2016-10-22 00:44] VITALS: BP 126/81; PULSE 90; TEMP 97.2
[2016-10-22 00:59] VITALS: RESP 18; O2SAT 97
--- NOTE | 2016-10-22 01:29 | ED PDOC ---
Arrival/HPI - General Chief Complaint: Shortness Of Breath Time Seen by Provider: 10/22/16 01:25 Historian: Patient - History of Present Illness Narrative History of Present Illness (Text): 10/22/16 01:26 55 y/o male, sleeping prior to my arrival on the stretcher, stated that he has lower back pain x 1 hour. Pt. stated that he was helping to carry an object, bend down, started to have pain, no numbness or tinging, no urinary incontinence or retention, no other medical or psychological complaints. Past Medical History - Provider Review Nursing Documentation Reviewed: Yes - Past History Past History: No Previous - Infectious Disease Hx of Infectious Diseases: None - Tetanus Immunization Tetanus Immunization: Unknown - Reproductive Currently : No - Cardiac Hx Cardiac Disorders: Yes Hx Hypertension: Yes (DENIES) - Pulmonary Hx Asthma: Yes Hx Bronchitis: Yes Hx Chronic Obstructive Pulmonary Disease (COPD): Yes - Neurological Hx Neurological Disorder: No HX Cerebrovascular Accident: No - HEENT Hx HEENT Disorder: No - Renal Hx Renal Disorder: No - Endocrine/Metabolic Hx Endocrine Disorders: Yes Hx Diabetes Mellitus Type 2: Yes - Hematological/Oncological Hx Blood Disorders: Yes - Integumentary Hx Dermatological Disorder: Yes Other/Comment: GENERALIZED MULTIPLE REDDENED RASH TO WHOLE FACE AND CHEST,LOWER PART OF ABDOMINAL AREA. ALSO HAS GENERALIZED INSECT BITES ALL OVER ARMS AND LEGS AND BACK AND BODY. TATTOOS ALL OVER ARMS BACK AND LEGS. - Musculoskeletal/Rheumatological Hx Musculoskeletal Disorders: Yes Hx Falls: Yes - Gastrointestinal Hx Gastrointestinal Disorders: Yes (GI BLEED) Hx Gall Bladder Disease: Yes Hx Pancreatitis: Yes Other/Comment: X2 HERNIA REPAIR acid reflux - Genitourinary/Gynecological Hx Genitourinary Disorders: Yes (ORCHIECTOMY) - Psychiatric Hx Psychophysiologic Disorder: Yes Hx Anxiety: Yes Hx Depression: Yes Hx Substance Use: No (DENIES) - Surgical History Hx Cardiac Catheterization: No Hx Coronary Stent: No Hx Musculoskeletal Surgery: Yes (Left hand surgery DENIES) - Anesthesia Hx Anesthesia: Yes Hx Anesthesia Reactions: No - Suicidal Assessment Feels Threatened In Home Enviroment: No Family/Social History - Physician Review Nursing Documentation Reviewed: Yes Family/Social History: Unknown Family HX Smoking Status: Current Some Days Smoker Hx Alcohol Use: Yes (DRINKS 2 6 PK/D.DRANK SINCE HE WAS 16 YRS OLD.H/O OF PARENTS DRINKING.) Frequency of alcohol use: Daily Amount per day: 10 Hx Substance Use: No (DENIES) Hx Substance Use Treatment: No Allergies/Home Meds Allergies/Adverse Reactions: Allergies Penicillins Allergy (Verified 10/22/16 00:38) RASH Home Medications: Home Meds Medication Instructions Recorded Confirmed Folic Acid 1 mg PO DAILY 10/08/16 10/08/16 Mv-Min/Folic/Vit K/Lycop/Coq10 1 each PO DAILY 10/08/16 10/08/16 [Daily Multivitamin Capsule] Pantoprazole Sodium [Protonix] 40 mg PO DAILY 10/08/16 10/08/16 Thiamine [Vitamin B1 Tab] 100 mg PO DAILY 10/08/16 10/08/16 Review of Systems - Review of Systems Constitutional: absent: Fatigue, Fevers Eyes: absent: Vision Changes ENT: absent: Hearing Changes Respiratory: absent: SOB, Cough Cardiovascular: absent: Chest Pain Gastrointestinal: absent: Abdominal Pain, Nausea, Vomiting Musculoskeletal: Back Pain, Myalgias. absent: Arthralgias, Neck Pain, Joint Swelling Skin: absent: Rash, Pruritis, Skin Lesions Neurological: absent: Headache, Dizziness Physical Exam Vital Signs Reviewed: Yes Vital Signs Temp Pulse Resp BP Pulse Ox 10/22/16 00:55 18 97 10/22/16 00:38 97.2 F L 90 20 126/81 96 Temperature: Afebrile Blood Pressure: Normal Pulse: Regular Respiratory Rate: Normal Appearance: Positive for: Well-Appearing, Non-Toxic, Comfortable Pain Distress: Mild Mental Status: Positive for: Alert and Oriented X 3 - Systems Exam Head: Present: Atraumatic, Normocephalic Pupils: Present: PERRL Extroacular Muscles: Present: EOMI Conjunctiva: Present: Normal Mouth: Present: Moist Mucous Membranes Neck: Present: Normal Range of Motion Respiratory/Chest: Present: Clear to Auscultation, Good Air Exchange. No: Respiratory Distress, Accessory Muscle Use Cardiovascular: Present: Regular Rate and Rhythm, Normal S1, S2. No: Murmurs Abdomen: Present: Normal Bowel Sounds. No: Tenderness, Distention, Peritoneal Signs Back: Present: Normal Inspection, Other (Thoracic to LS spine: no midline tenderness or step off, no paraspinal tenderness, no cva tenderness, FROM without limitation, sensation intact, motor 5/5, no rash, no saddling gait. ). No: CVA Tenderness, Midline Tenderness, Paraspinal Tenderness, Pain with Leg Raise, Decubitus Ulcer Upper Extremity: Present: Normal Inspection. No: Cyanosis, Edema Lower Extremity: Present: Normal Inspection. No: Edema Neurological: Present: GCS=15, CN II-XII Intact, Speech Normal Skin: Present: Warm, Dry, Normal Color. No: Rashes Psychiatric: Present: Alert, Oriented x 3, Normal Insight, Normal Concentration Medical Decision Making ED Course and Treatment: 10/22/16 01:29 -There is no emergent indication for radiology studies as the physical examination is unremarkable. Pt. is sleeping in the ER comfortably, tylenol ordered and will discharge home. -Discharge home with education on taking tylenol for pain as needed, follow up with your own pmd within 2 days, return to the ER for any new or worsening signs or symptoms. - PA / VENDETTE / Resident Statement / has reviewed & agrees with the documentation as recorded. Disposition/Present on Arrival - Present on Arrival Any Indicators Present on Arrival: No History of DVT/PE: No History of Uncontrolled Diabetes: No Urinary Catheter: No History of Decub. Ulcer: No History Surgical Site Infection Following: None - Disposition Have Diagnosis and Disposition been Completed?: Yes Diagnosis: Low back pain Disposition: HOME/ ROUTINE Disposition Time: 01:30 Patient Plan: Discharge Condition: GOOD Additional Instructions: -Discharge home with education on taking tylenol for pain as needed, follow up with your own pmd within 2 days, return to the ER for any new or worsening signs or symptoms. Referrals: [facility] [place]] - Follow up with primary Pamela Mclaughlin MD [Staff Provider] - Follow up with primary Forms: [employer] (Filipino), WORK NOTE
== END 2016-10-22 02:10 | disposition home or self-care (01) ==
LOC: ED 23:23
DX: M54.5 Low back pain (principal)

== ENCOUNTER 2016-11-02 22:02 | Observation (INO) | payer MEDICAID ==
[2016-11-02 22:03] VITALS: BMI 27.4
[2016-11-02 22:16] VITALS: BP 116/82; PULSE 84; RESP 18; TEMP 98.1; O2SAT 95
--- NOTE | 2016-11-02 22:19 | ED PDOC ---
Arrival/HPI - General Chief Complaint: Abdominal Pain Time Seen by Provider: 11/02/16 22:10 Historian: Patient - History of Present Illness Narrative History of Present Illness (Text): 11/02/16 22:19 Travis Royal is a 55 year old male, whose past medical history includes hypertension, diabetes, COPD, chronic alcohol abuse, GERD, chronic pancreatitis , and erosive esophagitis, who presents to the emergency department brought in for public intoxication tonight. Patient states he had a couple of alcoholic drinks tonight and states he feels hungry. Patient denies any fever, chills, chest pain, shortness of breath, nausea, vomiting, diarrhea, urinary symptoms, back pain, neck pain, headache, dizziness, or any other somatic complaints. Time/Duration: Other (tonight) Symptom Onset: Gradual Symptom Course: Unchanged Activities at Onset: Rest, Light Past Medical History - Provider Review Nursing Documentation Reviewed: Yes - Past History Past History: No Previous - Infectious Disease Hx of Infectious Diseases: None - Tetanus Immunization Tetanus Immunization: Unknown - Reproductive Currently : No - Cardiac Hx Cardiac Disorders: Yes Hx Hypertension: Yes (DENIES) - Pulmonary Hx Asthma: Yes Hx Bronchitis: Yes Hx Chronic Obstructive Pulmonary Disease (COPD): Yes - Neurological Hx Neurological Disorder: No HX Cerebrovascular Accident: No - HEENT Hx HEENT Disorder: No - Renal Hx Renal Disorder: No - Endocrine/Metabolic Hx Endocrine Disorders: Yes Hx Diabetes Mellitus Type 2: Yes - Hematological/Oncological Hx Blood Disorders: Yes - Integumentary Hx Dermatological Disorder: Yes Other/Comment: GENERALIZED MULTIPLE REDDENED RASH TO WHOLE FACE AND CHEST,LOWER PART OF ABDOMINAL AREA. ALSO HAS GENERALIZED INSECT BITES ALL OVER ARMS AND LEGS AND BACK AND BODY. TATTOOS ALL OVER ARMS BACK AND LEGS. - Musculoskeletal/Rheumatological Hx Musculoskeletal Disorders: Yes Hx Falls: Yes - Gastrointestinal Hx Gastrointestinal Disorders: Yes (GI BLEED) Hx Gall Bladder Disease: Yes Hx Pancreatitis: Yes Other/Comment: X2 HERNIA REPAIR acid reflux - Genitourinary/Gynecological Hx Genitourinary Disorders: Yes (ORCHIECTOMY) - Psychiatric Hx Psychophysiologic Disorder: Yes Hx Anxiety: Yes Hx Depression: Yes Hx Substance Use: No (DENIES) - Surgical History Hx Cardiac Catheterization: No Hx Coronary Stent: No Hx Musculoskeletal Surgery: Yes (Left hand surgery DENIES) - Anesthesia Hx Anesthesia: Yes Hx Anesthesia Reactions: No - Suicidal Assessment Feels Threatened In Home Enviroment: No Family/Social History - Physician Review Nursing Documentation Reviewed: Yes Family/Social History: Unknown Family HX Smoking Status: Current Some Days Smoker Hx Alcohol Use: Yes (DRINKS 2 6 PK/D.DRANK SINCE HE WAS 16 YRS OLD.H/O OF PARENTS DRINKING.) Amount per day: 10 Hx Substance Use: No (DENIES) Hx Substance Use Treatment: No Allergies/Home Meds Allergies/Adverse Reactions: Allergies Penicillins Allergy (Verified 10/22/16 00:38) RASH Home Medications: Home Meds Medication Instructions Recorded Confirmed Folic Acid 1 mg PO DAILY 10/08/16 10/08/16 Mv-Min/Folic/Vit K/Lycop/Coq10 1 each PO DAILY 10/08/16 10/08/16 [Daily Multivitamin Capsule] Pantoprazole Sodium [Protonix] 40 mg PO DAILY 10/08/16 10/08/16 Thiamine [Vitamin B1 Tab] 100 mg PO DAILY 10/08/16 10/08/16 Review of Systems - Physician Review All systems were reviewed & negative as marked: Yes - Review of Systems Constitutional: Normal. absent: Fevers Eyes: Normal ENT: Normal Respiratory: Normal. absent: SOB, Cough Cardiovascular: Normal. absent: Chest Pain Gastrointestinal: Normal. absent: Abdominal Pain, Diarrhea, Nausea, Vomiting Genitourinary Male: Normal. absent: Dysuria, Frequency, Hematuria, Urinary Output Changes Musculoskeletal: Normal. absent: Back Pain, Neck Pain Skin: Normal. absent: Rash Neurological: Normal. absent: Headache, Dizziness Endocrine: Normal Hemo/Lymphatic: Normal Psychiatric: Normal Physical Exam Vital Signs Reviewed: Yes Vital Signs Temp Pulse Resp BP Pulse Ox 11/02/16 22:09 98.1 F 84 18 116/82 95 Temperature: Afebrile Blood Pressure: Normal Pulse: Regular Respiratory Rate: Normal Appearance: Positive for: Well-Appearing, Non-Toxic, Comfortable Pain Distress: None Mental Status: Positive for: Alert and Oriented X 3 - Systems Exam Head: Present: Atraumatic, Normocephalic Pupils: Present: PERRL Extroacular Muscles: Present: EOMI Conjunctiva: Present: Normal Mouth: Present: Moist Mucous Membranes Neck: Present: Normal Range of Motion Respiratory/Chest: Present: Clear to Auscultation, Good Air Exchange. No: Respiratory Distress, Accessory Muscle Use Cardiovascular: Present: Regular Rate and Rhythm, Normal S1, S2. No: Murmurs Abdomen: Present: Normal Bowel Sounds. No: Tenderness, Distention, Peritoneal Signs Back: Present: Normal Inspection Upper Extremity: Present: Normal Inspection. No: Cyanosis, Edema Lower Extremity: Present: Normal Inspection. No: Edema Neurological: Present: GCS=15, CN II-XII Intact, Speech Normal Skin: Present: Warm, Dry, Normal Color. No: Rashes Psychiatric: Present: Alert, Oriented x 3, Normal Insight, Normal Concentration Medical Decision Making ED Course and Treatment: 11/02/16 22:20 Impression: 55 year old male brought in for alcohol intoxication tonight. Differential Diagnosis included but are not limited to: alcohol intoxication Plan: -- Reassess and disposition Prior Visits: Notes and results from previous visits were reviewed. On 10/22/2016, pt was seen in the Emergency department for lower back pain. Pt was d/c home. Progress Notes: ED OBSERVATION Discharge: Yes Date of observation admission: 11/02/16 Time of observation admission: 22:20 - Observation admission statement Patient is being placed in observation because:: alcohol intoxication - Goals of Observation Goals of observation are:: sobriety, observe for signs of withdrawal - Progress Note Progress Note: 11/02/16 22:20 Pt in no acute distress. Will observe for sobriety/signs of withdrawal. 11/03/16 00:20 Pt sleeping currently, in no acute distress. 11/03/16 01:00 Notified by nursing staff pt eloped from Emergency room. - Scribe Statement The provider has reviewed the documentation as recorded by the Mary Kaiser Provider Scribe Attestation: All medical record entries made by the Mary were at my direction and personally dictated by me. I have reviewed the chart and agree that the record accurately reflects my personal performance of the history, physical exam, medical decision making, and the department course for this patient. I have also personally directed, reviewed, and agree with the discharge instructions and disposition. Disposition/Present on Arrival - Present on Arrival Any Indicators Present on Arrival: No History of DVT/PE: No History of Uncontrolled Diabetes: No Urinary Catheter: No History of Decub. Ulcer: No History Surgical Site Infection Following: None - Disposition Have Diagnosis and Disposition been Completed?: Yes Diagnosis: Alcohol abuse Disposition: ELOPEMENT - ER ONLY Disposition Time: 03:25 Condition: STABLE
== END 2016-11-03 03:24 | disposition home or self-care (01) ==
LOC: ED 22:02 → EROBSV 22:20
PROVIDERS: ADMIT Emergency Medicine; ATTEND Emergency Medicine
DX: F10.10 Alcohol abuse, uncomplicated (principal)
CPT/HCPCS: 99283; G0378

== ENCOUNTER 2016-11-08 23:39 | Observation (INO) | payer MEDICAID ==
[2016-11-08 23:40] VITALS: BMI 27.4
--- NOTE | 2016-11-08 23:51 | ED PDOC ---
Arrival/HPI - General Chief Complaint: Alcohol Ingestion Time Seen by Provider: 11/08/16 23:46 - History of Present Illness Narrative History of Present Illness (Text): 11/08/16 23:49 Patient presents with slurring of speech and alcohol on breath. Admits to drinking throughout the day. Pt denies suicidal or homicidal ideations. Denies any trauma or injury. Past Medical History - Provider Review Nursing Documentation Reviewed: Yes - Past History Past History: No Previous - Infectious Disease Hx of Infectious Diseases: None - Tetanus Immunization Tetanus Immunization: Unknown - Reproductive Currently : No - Cardiac Hx Cardiac Disorders: Yes Hx Hypertension: Yes (DENIES) - Pulmonary Hx Asthma: Yes Hx Bronchitis: Yes Hx Chronic Obstructive Pulmonary Disease (COPD): Yes - Neurological Hx Neurological Disorder: No HX Cerebrovascular Accident: No - HEENT Hx HEENT Disorder: No - Renal Hx Renal Disorder: No - Endocrine/Metabolic Hx Endocrine Disorders: Yes Hx Diabetes Mellitus Type 2: Yes - Hematological/Oncological Hx Blood Disorders: Yes - Musculoskeletal/Rheumatological Hx Musculoskeletal Disorders: Yes Hx Falls: Yes - Gastrointestinal Hx Gastrointestinal Disorders: Yes (GI BLEED) Hx Gall Bladder Disease: Yes Hx Pancreatitis: Yes Other/Comment: X2 HERNIA REPAIR acid reflux - Genitourinary/Gynecological Hx Genitourinary Disorders: Yes (ORCHIECTOMY) - Psychiatric Hx Psychophysiologic Disorder: Yes Hx Anxiety: Yes Hx Depression: Yes Hx Substance Use: No (DENIES) - Surgical History Hx Cardiac Catheterization: No Hx Coronary Stent: No Hx Musculoskeletal Surgery: Yes (Left hand surgery DENIES) - Anesthesia Hx Anesthesia: Yes Hx Anesthesia Reactions: No - Suicidal Assessment Feels Threatened In Home Enviroment: No Family/Social History Family/Social History: Unknown Family HX Smoking Status: Current Some Days Smoker Hx Alcohol Use: Yes (DRINKS 2 6 PK/D.DRANK SINCE HE WAS 16 YRS OLD.H/O OF PARENTS DRINKING.) Amount per day: 10 Hx Substance Use: No (DENIES) Hx Substance Use Treatment: No Allergies/Home Meds Allergies/Adverse Reactions: Allergies Penicillins Allergy (Verified 10/22/16 00:38) RASH Home Medications: Home Meds Medication Instructions Recorded Confirmed Folic Acid 1 mg PO DAILY 10/08/16 10/08/16 Mv-Min/Folic/Vit K/Lycop/Coq10 1 each PO DAILY 10/08/16 10/08/16 [Daily Multivitamin Capsule] Pantoprazole Sodium [Protonix] 40 mg PO DAILY 10/08/16 10/08/16 Thiamine [Vitamin B1 Tab] 100 mg PO DAILY 10/08/16 10/08/16 Review of Systems - Review of Systems Systems not reviewed;Unavailable: Intoxicated Physical Exam - Physical Exam Narrative Physical Exam (Text): 11/08/16 23:49 pt in no distress, no airway compromise, breathing without difficulty, good insp /exp effort. No signs of head/torso/extremity trauma. Following commands without difficulty. Head: Present: Atraumatic, Normocephalic. No: Tenderness, Contusion, Swelling, Ecchymosis, Abrasion, Laceration Pupils: Present: PERRL Extroacular Muscles: Present: EOMI Conjunctiva: Present: Normal Mouth: Present: Moist Mucous Membranes Neck: Present: Normal Range of Motion. No: MIDLINE TENDERNESS, Paraspinal Tenderness Respiratory/Chest: Present: Clear to Auscultation, Good Air Exchange. No: Respiratory Distress, Accessory Muscle Use Cardiovascular: Present: Regular Rate and Rhythm, Normal S1, S2. No: Murmurs Abdomen: Present: Normal Bowel Sounds. No: Tenderness, Distention, Peritoneal Signs, Rebound, Guarding Back: Present: Normal Inspection. No: Midline Tenderness, Paraspinal Tenderness Upper Extremity: Present: Normal Inspection. No: Cyanosis, Edema Lower Extremity: Present: Normal Inspection. No: Edema Neurological: Present: GCS=15, CN II-XII Intact Skin: Present: Warm, Dry, Normal Color. No: Rashes Lymphatic: Present: OX3, NI, NC Psychiatric: Present: Alert. No: Agitated Vital Signs Temp Pulse Resp BP Pulse Ox 11/09/16 06:16 82 18 106/58 L 99 11/09/16 00:08 98 F 11/09/16 00:03 88 18 139/89 95 ED OBSERVATION Discharge: Yes Date of observation admission: 11/08/16 Time of observation admission: 23:51 - Observation admission statement Patient is being placed in observation because:: alcohol intoxication - Goals of Observation Goals of observation are:: pending sobriety - Progress Note Progress Note: 11/09/16 00:53 Patient resting comfortably, no complaints at this time. 11/09/2016 02:53 Patient resting comfortably, no complaints at this time. 11/09/16 04:57 Patient resting comfortably, no complaints at this time. 11/09/16 06:26 Pt has been closely monitored throughout the stay in the ED. Currently pt is ANOx3 to person, place, and time. Has good insight and judgment. Denies suicidal or homicidal ideations. Pt has steady gait, ambulates without difficulty, not slurring speech. Pt able to tolerate PO without any difficulty. Patient denies any complaints at this time. Patient is not tremulous, not tachycardic, no signs or symptoms of alcohol withdrawal. Pt states he understands to return to the ER right away for new or worsening symptoms or for inability to f/u with PMD or specialist as instructed. Patient states that he fully agrees with and understands discharge instructions. States that he agrees with the plan and disposition. Verbalized and repeated discharge instructions and plan. I have given the patient opportunity to ask any additional questions. Disposition/Present on Arrival - Present on Arrival Any Indicators Present on Arrival: No History of DVT/PE: No History of Uncontrolled Diabetes: No Urinary Catheter: No History of Decub. Ulcer: No History Surgical Site Infection Following: None - Disposition Have Diagnosis and Disposition been Completed?: Yes Diagnosis: Alcohol intoxication Disposition: HOME/ ROUTINE Disposition Time: 23:51 Patient Plan: Observation Patient Problems: Current Active Problems Problem Status Onset Alcohol intoxication Acute Condition: GOOD
[2016-11-09 00:04] VITALS: RESP 18
[2016-11-09 00:08] VITALS: TEMP 98
[2016-11-09 06:16] VITALS: BP 106/58; PULSE 82; O2SAT 99
== END 2016-11-09 06:28 | disposition home or self-care (01) ==
LOC: ED 23:39 → EROBSV 23:48
PROVIDERS: ADMIT Emergency Medicine; ATTEND Emergency Medicine
DX: F10.129 Alcohol abuse with intoxication, unspecified (principal)
CPT/HCPCS: 82948; 99283; G0378

== ENCOUNTER 2016-11-09 21:32 | Observation (INO) | payer MEDICAID ==
[2016-11-09 22:44] VITALS: BMI 29.0
[2016-11-09 22:46] VITALS: BP 144/74; RESP 16; TEMP 98.2; O2SAT 98
--- NOTE | 2016-11-09 22:55 | ED PDOC ---
Arrival/HPI - General Historian: Patient - History of Present Illness Time/Duration: Other (see hpi) Context: Street <Antonio Arnold - Last Filed: 11/09/16 22:51> <[email or web address] - Last Filed: 11/10/16 06:09> - General Chief Complaint: Alcohol Ingestion Time Seen by Provider: 11/09/16 22:50 - History of Present Illness Narrative History of Present Illness (Text): 11/09/16 22:51 This 55 yo male presents to this ED c/o vomiting x PST [employer]PERVIS[employer]. Patient stated has been drinking alcohol today. Patient developed nausea and he called ambulance. Patient denies sob, cough, fever, abdominal pain, rectal bleeding, melena, hematemesis, or urinary symptoms. Patient denies abnormal gait. (Antonio Arnold) Past Medical History - Provider Review Nursing Documentation Reviewed: Yes - Past History Past History: No Previous - Infectious Disease Hx of Infectious Diseases: None - Tetanus Immunization Tetanus Immunization: Unknown - Reproductive Currently : No - Cardiac Hx Cardiac Disorders: Yes Hx Hypertension: Yes (DENIES) - Pulmonary Hx Asthma: Yes Hx Bronchitis: Yes Hx Chronic Obstructive Pulmonary Disease (COPD): Yes - Neurological Hx Neurological Disorder: No HX Cerebrovascular Accident: No - HEENT Hx HEENT Disorder: No - Renal Hx Renal Disorder: No - Endocrine/Metabolic Hx Endocrine Disorders: Yes Hx Diabetes Mellitus Type 2: Yes - Hematological/Oncological Hx Blood Disorders: Yes - Integumentary Hx Dermatological Disorder: Yes Other/Comment: GENERALIZED MULTIPLE REDDENED RASH TO WHOLE FACE AND CHEST,LOWER PART OF ABDOMINAL AREA. ALSO HAS GENERALIZED INSECT BITES ALL OVER ARMS AND LEGS AND BACK AND BODY. TATTOOS ALL OVER ARMS BACK AND LEGS. - Musculoskeletal/Rheumatological Hx Musculoskeletal Disorders: Yes Hx Falls: Yes - Gastrointestinal Hx Gastrointestinal Disorders: Yes (GI BLEED) Hx Gall Bladder Disease: Yes Hx Pancreatitis: Yes Other/Comment: X2 HERNIA REPAIR acid reflux - Genitourinary/Gynecological Hx Genitourinary Disorders: Yes (ORCHIECTOMY) - Psychiatric Hx Psychophysiologic Disorder: Yes Hx Anxiety: Yes Hx Depression: Yes Hx Substance Use: No (DENIES) - Surgical History Hx Cardiac Catheterization: No Hx Coronary Stent: No Hx Musculoskeletal Surgery: Yes (Left hand surgery DENIES) - Anesthesia Hx Anesthesia: Yes Hx Anesthesia Reactions: No Hx Malignant Hyperthermia: No - Suicidal Assessment Feels Threatened In Home Enviroment: No <Antonio Arnold - Last Filed: 11/09/16 22:51> Family/Social History - Physician Review Nursing Documentation Reviewed: Yes Family/Social History: No Known Family HX Smoking Status: Current Some Days Smoker Hx Alcohol Use: Yes (DRINKS 2 6 PK/D.DRANK SINCE HE WAS 16 YRS OLD.H/O OF PARENTS DRINKING.) Amount per day: 10 Hx Substance Use: No (DENIES) Hx Substance Use Treatment: No <Antonio Arnold - Last Filed: 11/09/16 22:51> Allergies/Home Meds <Antonio Arnold - Last Filed: 11/09/16 22:51> <Tommie Godfrey - Last Filed: 11/10/16 06:09> Allergies/Adverse Reactions: Allergies Penicillins Allergy (Verified 10/22/16 00:38) RASH Home Medications: Home Meds Medication Instructions Recorded Confirmed No Known Home Med 11/09/16 11/09/16 Review of Systems - Review of Systems Constitutional: Normal. absent: Fatigue, Weight Change, Fevers Eyes: Normal ENT: Normal. absent: Sore Throat Respiratory: Normal. absent: SOB, Cough Cardiovascular: Normal. absent: Chest Pain, Palpitations Gastrointestinal: Nausea. absent: Abdominal Pain, Diarrhea, Vomiting, Hematochezia, Hematemesis Genitourinary Male: Normal. absent: Dysuria, Frequency, Hematuria Musculoskeletal: Normal Skin: Normal. absent: Rash Neurological: Normal. absent: Headache, Dizziness, Focal Weakness, Gait Changes , Speech Changes Endocrine: Normal Hemo/Lymphatic: Normal Psychiatric: Other (alcohol abuse). absent: Anxiety, Depression, Suicidal Ideation <Antonio Arnold - Last Filed: 11/09/16 22:51> Physical Exam Temperature: Afebrile Blood Pressure: Normal Pulse: Regular Respiratory Rate: Normal Appearance: Positive for: Well-Appearing, Non-Toxic, Comfortable Pain Distress: None Mental Status: Positive for: Alert and Oriented X 3 - Systems Exam Head: Present: Atraumatic, Normocephalic Pupils: Present: PERRL Extroacular Muscles: Present: EOMI Conjunctiva: Present: Normal Mouth: Present: Moist Mucous Membranes Pharnyx: Present: Normal. No: ERYTHEMA, EXUDATE, TONSILS ENLARGED Neck: Present: Normal Range of Motion, Trachea Midline. No: Meningeal Signs, MIDLINE TENDERNESS, Paraspinal Tenderness Respiratory/Chest: Present: Clear to Auscultation, Good Air Exchange. No: Respiratory Distress, Accessory Muscle Use Cardiovascular: Present: Regular Rate and Rhythm, Normal S1, S2. No: Murmurs Abdomen: Present: Normal Bowel Sounds. No: Tenderness, Distention, Peritoneal Signs, Rebound, Guarding Back: Present: Normal Inspection. No: CVA Tenderness Upper Extremity: Present: Normal Inspection, Normal ROM. No: Cyanosis, Edema Lower Extremity: Present: Normal Inspection, Normal ROM. No: Edema Neurological: Present: GCS=15, CN II-XII Intact, Speech Normal, Motor Func Grossly Intact, Normal Sensory Function, Normal Cerebellar Funct, Gait Normal, Other (Normal gait. No neuro focal deficits) Skin: Present: Warm, Dry, Normal Color. No: Rashes Psychiatric: Present: Alert, Oriented x 3, Intoxicated <Arnold,Nahim P - Last Filed: 11/09/16 22:51> ED OBSERVATION Discharge: Yes Date of observation admission: 11/09/16 Time of observation admission: 22:58 <Arnold,Nahim P - Last Filed: 11/09/16 22:51> Discharge: Yes <Tommie Godfrey - Last Filed: 11/10/16 06:09> - Observation admission statement Patient is being placed in observation because:: Alcohol intoxication (Arnold,Nahim P) - Goals of Observation Goals of observation are:: For monitoring (Arnold,Nahim P) - Progress Note Progress Note: 11/09/16 23:00 Pt resting comfortably, no new complaints. 11/10/16 01:00 Pt sleeping currently, in no acute distress. 11/10/16 03:00 Pt resting comfortably, no new complaints. 11/10/16 05:00 Pt sleeping currently, in no acute distress. (Tommie Godfrey) Disposition/Present on Arrival - Present on Arrival History of DVT/PE: No History of Uncontrolled Diabetes: No Urinary Catheter: No History of Decub. Ulcer: No History Surgical Site Infection Following: None <Arnold,Nahim P - Last Filed: 11/09/16 22:51> - Present on Arrival Any Indicators Present on Arrival: No - Disposition Have Diagnosis and Disposition been Completed?: Yes Disposition Time: 06:09 <Tommie Godfrey Last Filed: 11/10/16 06:09> - Disposition Diagnosis: Alcohol abuse Disposition: HOME/ ROUTINE Condition: GOOD
[2016-11-10 02:13] VITALS: PULSE 85
== END 2016-11-10 06:09 | disposition home or self-care (01) ==
LOC: ED 21:32 → EROBSV 23:02
PROVIDERS: ADMIT Emergency Medicine; ATTEND Emergency Medicine
DX: F10.10 Alcohol abuse, uncomplicated (principal)
CPT/HCPCS: 99282; G0378

== ENCOUNTER 2016-11-10 20:20 | Observation (INO) | payer MEDICAID ==
[2016-11-10 20:20] VITALS: BMI 29.0
[2016-11-10 20:32] VITALS: TEMP 98.2
--- NOTE | 2016-11-10 23:06 | ED PDOC ---
Arrival/HPI - General Chief Complaint: Alcohol Ingestion Time Seen by Provider: 11/10/16 22:01 Historian: Patient - History of Present Illness Narrative History of Present Illness (Text): 11/10/16 23:06 Travis Royal is a 55 year old male, whose past medical history includes chronic alcohol abuse, who presents to the emergency department brought in by EMS for alcohol intoxication tonight. Patient is well known to ER staff and has been seen on multiple occasions for similar complaints. The patient denies any fever, chills, chest pain, shortness of breath, abdominal pain, nausea, vomiting , diarrhea, urinary symptoms, back pain, neck pain, headache, dizziness, or any other complaints. Time/Duration: Other (tonight) Symptom Onset: Gradual Symptom Course: Unchanged Activities at Onset: Rest, Light Past Medical History - Provider Review Nursing Documentation Reviewed: Yes - Past History Past History: No Previous - Infectious Disease Hx of Infectious Diseases: None - Tetanus Immunization Tetanus Immunization: Unknown - Reproductive Currently : No - Cardiac Hx Cardiac Disorders: Yes Hx Hypertension: Yes (DENIES) - Pulmonary Hx Asthma: Yes Hx Bronchitis: Yes Hx Chronic Obstructive Pulmonary Disease (COPD): Yes - Neurological Hx Neurological Disorder: No HX Cerebrovascular Accident: No - HEENT Hx HEENT Disorder: No - Renal Hx Renal Disorder: No - Endocrine/Metabolic Hx Endocrine Disorders: Yes Hx Diabetes Mellitus Type 2: Yes - Hematological/Oncological Hx Blood Disorders: Yes - Integumentary Hx Dermatological Disorder: Yes Other/Comment: GENERALIZED MULTIPLE REDDENED RASH TO WHOLE FACE AND CHEST,LOWER PART OF ABDOMINAL AREA. ALSO HAS GENERALIZED INSECT BITES ALL OVER ARMS AND LEGS AND BACK AND BODY. TATTOOS ALL OVER ARMS BACK AND LEGS. - Musculoskeletal/Rheumatological Hx Musculoskeletal Disorders: Yes Hx Falls: Yes - Gastrointestinal Hx Gastrointestinal Disorders: Yes (GI BLEED) Hx Gall Bladder Disease: Yes Hx Pancreatitis: Yes Other/Comment: X2 HERNIA REPAIR acid reflux - Genitourinary/Gynecological Hx Genitourinary Disorders: Yes (ORCHIECTOMY) - Psychiatric Hx Psychophysiologic Disorder: Yes Hx Anxiety: Yes Hx Depression: Yes Hx Substance Use: No (DENIES) - Surgical History Hx Cardiac Catheterization: No Hx Coronary Stent: No Hx Musculoskeletal Surgery: Yes (Left hand surgery DENIES) - Anesthesia Hx Anesthesia: Yes Hx Anesthesia Reactions: No Hx Malignant Hyperthermia: No - Suicidal Assessment Feels Threatened In Home Enviroment: No Family/Social History - Physician Review Nursing Documentation Reviewed: Yes Family/Social History: Unknown Family HX Smoking Status: Current Some Days Smoker Hx Alcohol Use: Yes (DRINKS 2 6 PK/D.DRANK SINCE HE WAS 16 YRS OLD.H/O OF PARENTS DRINKING.) Amount per day: 10 Hx Substance Use: No (DENIES) Hx Substance Use Treatment: No Allergies/Home Meds Allergies/Adverse Reactions: Allergies Penicillins Allergy (Verified 10/22/16 00:38) RASH Home Medications: Home Meds Medication Instructions Recorded Confirmed No Known Home Med 11/09/16 11/10/16 Review of Systems - Physician Review All systems were reviewed & negative as marked: Yes - Review of Systems Constitutional: Normal. absent: Fevers Eyes: Normal ENT: Normal Respiratory: Normal. absent: SOB Cardiovascular: Normal. absent: Chest Pain Gastrointestinal: Normal. absent: Abdominal Pain, Diarrhea, Nausea Genitourinary Male: Normal. absent: Dysuria, Frequency, Hematuria, Urinary Output Changes Musculoskeletal: Normal. absent: Back Pain, Neck Pain Skin: Normal. absent: Rash Neurological: Normal. absent: Headache, Dizziness Endocrine: Normal Hemo/Lymphatic: Normal Psychiatric: Normal Physical Exam Vital Signs Reviewed: Yes Vital Signs Temp Pulse Resp BP Pulse Ox 11/11/16 01:59 85 17 139/87 97 11/10/16 20:29 98.2 F 78 18 138/72 99 Temperature: Afebrile Blood Pressure: Normal Pulse: Regular Respiratory Rate: Normal Appearance: Positive for: Well-Appearing, Non-Toxic, Comfortable Pain Distress: None Mental Status: Positive for: Alert and Oriented X 3 - Systems Exam Head: Present: Atraumatic, Normocephalic Pupils: Present: PERRL Extroacular Muscles: Present: EOMI Conjunctiva: Present: Normal Mouth: Present: Moist Mucous Membranes Neck: Present: Normal Range of Motion Respiratory/Chest: Present: Clear to Auscultation, Good Air Exchange. No: Respiratory Distress, Accessory Muscle Use Cardiovascular: Present: Regular Rate and Rhythm, Normal S1, S2. No: Murmurs Abdomen: Present: Normal Bowel Sounds. No: Tenderness, Distention, Peritoneal Signs Back: Present: Normal Inspection Upper Extremity: Present: Normal Inspection. No: Cyanosis, Edema Lower Extremity: Present: Normal Inspection. No: Edema Neurological: Present: GCS=15, CN II-XII Intact, Speech Normal Skin: Present: Warm, Dry, Normal Color. No: Rashes Psychiatric: Present: Alert, Oriented x 3, Normal Insight, Normal Concentration Medical Decision Making ED Course and Treatment: 11/10/16 23:06 Impression: 55 year old male presents for alcohol intoxication. Differential Diagnosis included but are not limited to: alcohol intoxication Plan: -- EKG -- Labs, alcohol level -- Reassess and disposition Prior Visits: Notes and results from previous visits were reviewed. On 11/09/2016, pt was seen in the Emergency department for alcohol intoxication with nausea. Pt was d/c. Progress Notes: 11/10/16 23:19 Reviewed EKG, NSR at [address]-segment elevations or depressions, no T-wave inversions, normal intervals. - Lab Interpretations Lab Results: 11/10/16 23:30 11/10/16 23:30 Lab Results 11/10/16 23:30: Alcohol, Quantitative 260 H 11/10/16 23:30: Sodium 126 L, Potassium 3.4 L, Chloride 82 L, Carbon Dioxide 26 , Anion Gap 21 H, BUN 9, Creatinine 0.7, Est GFR ( Amer) > 60, Est GFR ( Non-Af Amer) > 60, Random Glucose 102, Calcium 8.4, Total Bilirubin 0.8, AST 85 H, ALT 54, Alkaline Phosphatase 107, Total Protein 8.1, Albumin 4.6, Globulin 3.6, Albumin/Globulin Ratio 1.3 11/10/16 23:30: WBC 9.8 D, RBC 4.22, Hgb 10.5 L, Hct 31.4 L, MCV 74.4 L, MCH 24.9 L, MCHC 33.4, RDW 18.7 H, Plt Count 76 L, MPV 8.5, Gran % 83.1 H, Lymph % ( Auto) 9.1 L, [place] % (Auto) 7.7 H, Eos % (Auto) 0.0 L, Baso % (Auto) 0.1, Gran # 8.12 H, Lymph # 0.9 L, [place] # 0.8 H, Eos # 0.0, Baso # 0.01, Neutrophils % ( Manual) 80 H, Band Neutrophils % 4 H, Lymphocytes % (Manual) 10 L, Monocytes % ( Manual) 6, Eosinophils % (Manual) 1, Platelet Evaluation Low I have reviewed the lab results: Yes - EKG Interpretation Interpreted by ED Physician: Yes Type: 12 lead EKG - Medication Orders Current Medication Orders: Sodium Chloride (Sodium Chloride 0.9%) 1,000 mls @ 80 mls/hr IV .[id number] SOPHIA Last Admin: 11/11/16 00:44 Dose: 80 mls/hr Discontinued Medications Ondansetron HCl (Zofran Inj) 4 mg IVP STAT STA Stop: 11/11/16 00:11 Last Admin: 11/11/16 00:40 Dose: 4 mg Pantoprazole Sodium (Protonix Inj) 40 mg IVP ONCE STA Stop: 11/11/16 00:11 Last Admin: 11/11/16 00:42 Dose: 40 mg Potassium Chloride (K-Dur 20 Meq Er Tab) 40 meq PO STAT STA Stop: 11/11/16 00:12 Last Admin: 11/11/16 00:44 Dose: 40 meq ED OBSERVATION Discharge: Yes Date of observation admission: 11/11/16 Time of observation admission: 00:12 - Observation admission statement Patient is being placed in observation because:: alcohol intoxication - Goals of Observation Goals of observation are:: sobriety - Progress Note Progress Note: 11/11/16 00:13 alcohol level: 206. Will observe until morning. 11/11/16 02:13 Pt resting comfortably, now new complaints. 11/11/16 04:13 Pt sleeping currently, in no acute distress. 11/11/16 05:56 Pt resting comfortably, now new complaints. - Scribe Statement The provider has reviewed the documentation as recorded by the Scribalvarez Kaiser All medical record entries made by the Rahibalvarez were at my direction and personally dictated by me. I have reviewed the chart and agree that the record accurately reflects my personal performance of the history, physical exam, medical decision making, and the department course for this patient. I have also personally directed, reviewed, and agree with the discharge instructions and disposition. Disposition/Present on Arrival - Present on Arrival Any Indicators Present on Arrival: No History of DVT/PE: No History of Uncontrolled Diabetes: No Urinary Catheter: No History of Decub. Ulcer: No History Surgical Site Infection Following: None - Disposition Have Diagnosis and Disposition been Completed?: Yes Diagnosis: Alcohol abuse Disposition: HOME/ ROUTINE Disposition Time: 05:57 Condition: GOOD
[2016-11-10 23:52] LABS: BASO # 0.01 K/mm3 (0.0-2.0); BASO % 0.1 % (0.0-3.0); GRAN # 8.12 (1.4-6.5); GRAN % 83.1 % (50.0-68.0); HEMATOCRIT 31.4 % (42.0-52.0); LYMPH # 0.9 (1.2-3.4); LYMPH % 9.1 % (22.0-35.0); MEAN CELL VOLUME 74.4 fl (80.0-105.0); MEAN CORPUSCULAR HEMOGLOBIN 24.9 pg (25.0-35.0); MEAN CORPUSCULAR HGB CONC 33.4 g/dl (31.0-37.0); MEAN PLATELET VOLUME 8.5 fl (7.0-11.0); MONO # 0.8 (0.1-0.6); MONO % 7.7 % (1.0-6.0); RED CELL DISTRIBUTION WIDTH 18.7 % (11.5-14.5); WHITE BLOOD COUNT 9.8 10^3/ul (4.5-11.0)
[2016-11-10 23:56] LABS: ALB/GLOB RATIO 1.3 (1.1-1.8); ALKALINE PHOSPHATASE 107 U/L (38-133); ALT/SGPT 54 U/L (7-56); AST/SGOT 85 U/L (15-59); BILIRUBIN,TOTAL 0.8 mg/dL (0.2-1.3); BLOOD UREA NITROGEN 9 mg/dL (7-21); CALCIUM 8.4 mg/dL (8.4-10.5); CARBON DIOXIDE 26 mmol/L (21-33); CHLORIDE 82 mmol/L (98-107); GFR AFRICAN-AMERICAN > 60; GLUCOSE,RANDOM 102 mg/dL (70-110); POTASSIUM 3.4 mmol/L (3.6-5.0); SODIUM 126 mmol/L (132-148); TOTAL PROTEIN 8.1 g/dL (5.8-8.3)
[2016-11-11] MEDS ORDERED: Potassium Chloride 20 mEq ER Tab PO STA (00:11)
[2016-11-11 00:13] LABS: PLATELET COUNT 76 10^3/uL (120.0-450.0)
[2016-11-11] MEDS ORDERED: Sodium Chloride 0.9% 1,000 ML IV SCH (00:15)
[2016-11-11 00:18] LABS: BAND 4 % (0-2); EOSINOPHIL 1 % (0.0-3.0); NEUTROPHIL 80 % (50.0-70.0); PLATELET ESTIMATE LOW (NORMAL)
[2016-11-11 02:00] VITALS: BP 139/87; PULSE 85; RESP 17; O2SAT 97
--- NOTE | 2016-11-11 10:11 | CARD ---
APPROVED REPORT EKG Measurement Heart [id number] <Conclusion> Normal sinus rhythm Normal ECG
== END 2016-11-11 05:57 | disposition home or self-care (01) ==
LOC: ED 20:20 → EROBSV 11-11 00:11
PROVIDERS: ADMIT Emergency Medicine; ATTEND Emergency Medicine
DX: F10.10 Alcohol abuse, uncomplicated (principal); Y90.8 Blood alcohol level of 240 mg/100 ml or more; E11.9 Type 2 diabetes mellitus without complications
CPT/HCPCS: 80053; 80320; 85025; 93005; 96374; 96375; 99283; C9113; G0378; J2405; J7040

== ENCOUNTER 2016-11-15 23:02 | Emergency (ER) | payer MEDICAID ==
[2016-11-15 23:03] VITALS: BMI 29.0
[2016-11-15 23:08] VITALS: RESP 16
--- NOTE | 2016-11-15 23:42 | ED PDOC ---
Arrival/HPI - General Chief Complaint: Alcohol Ingestion Time Seen by Provider: 11/15/16 23:08 Historian: Patient - History of Present Illness Narrative History of Present Illness (Text): 11/15/16 23:39 A 55 year old male, whose past medical history includes chronic alcohol abuse, was brought in by EMS and presents to the emergency department complaining of alcohol abuse and intoxication tonight. Patient is well known to emergency department staff and was seen on multiple occasions for similar complaints. Patient denies of any fever, chills, chest pain, shortness of breath, abdominal pain, nausea, vomiting, diarrhea, urinary symptoms, back pain, neck pain, headache, dizziness, or any other complaints. Time/Duration: Other (tonight) Symptom Onset: Gradual Symptom Course: Unchanged Activities at Onset: Rest, Light Past Medical History - Provider Review Nursing Documentation Reviewed: Yes - Past History Past History: No Previous - Infectious Disease Hx of Infectious Diseases: None - Tetanus Immunization Tetanus Immunization: Unknown - Reproductive Currently : No - Cardiac Hx Cardiac Disorders: Yes Hx Hypertension: Yes (DENIES) - Pulmonary Hx Asthma: Yes Hx Bronchitis: Yes Hx Chronic Obstructive Pulmonary Disease (COPD): Yes - Neurological Hx Neurological Disorder: No HX Cerebrovascular Accident: No - HEENT Hx HEENT Disorder: No - Renal Hx Renal Disorder: No - Endocrine/Metabolic Hx Endocrine Disorders: Yes Hx Diabetes Mellitus Type 2: Yes - Hematological/Oncological Hx Blood Disorders: Yes - Integumentary Hx Dermatological Disorder: Yes Other/Comment: GENERALIZED MULTIPLE REDDENED RASH TO WHOLE FACE AND CHEST,LOWER PART OF ABDOMINAL AREA. ALSO HAS GENERALIZED INSECT BITES ALL OVER ARMS AND LEGS AND BACK AND BODY. TATTOOS ALL OVER ARMS BACK AND LEGS. - Musculoskeletal/Rheumatological Hx Musculoskeletal Disorders: Yes Hx Falls: Yes - Gastrointestinal Hx Gastrointestinal Disorders: Yes (GI BLEED) Hx Gall Bladder Disease: Yes Hx Pancreatitis: Yes Other/Comment: X2 HERNIA REPAIR acid reflux - Genitourinary/Gynecological Hx Genitourinary Disorders: Yes (ORCHIECTOMY) - Psychiatric Hx Psychophysiologic Disorder: Yes Hx Anxiety: Yes Hx Depression: Yes Hx Substance Use: No (DENIES) - Surgical History Hx Cardiac Catheterization: No Hx Coronary Stent: No Hx Musculoskeletal Surgery: Yes (Left hand surgery DENIES) - Anesthesia Hx Anesthesia: Yes Hx Anesthesia Reactions: No Hx Malignant Hyperthermia: No - Suicidal Assessment Feels Threatened In Home Enviroment: No Family/Social History - Physician Review Nursing Documentation Reviewed: Yes Family/Social History: No Known Family HX Smoking Status: Current Some Days Smoker Hx Alcohol Use: Yes (DRINKS 2 6 PK/D.DRANK SINCE HE WAS 16 YRS OLD.H/O OF PARENTS DRINKING.) Amount per day: 10 Hx Substance Use: No (DENIES) Hx Substance Use Treatment: No Allergies/Home Meds Allergies/Adverse Reactions: Allergies Penicillins Allergy (Verified 10/22/16 00:38) RASH Home Medications: Home Meds Medication Instructions Recorded Confirmed No Known Home Med 11/09/16 11/10/16 Review of Systems - Physician Review All systems were reviewed & negative as marked: Yes - Review of Systems Systems not reviewed;Unavailable: Intoxicated Constitutional: absent: Fevers, Night Sweats Respiratory: absent: SOB Cardiovascular: absent: Chest Pain Gastrointestinal: absent: Abdominal Pain, Diarrhea, Nausea, Vomiting Genitourinary Male: absent: Urinary Output Changes Musculoskeletal: absent: Back Pain, Neck Pain Neurological: absent: Headache, Dizziness Physical Exam - Physical Exam Physical Exam Limitations: Intoxication Vital Signs Reviewed: Yes Vital Signs Temp Pulse Resp BP Pulse Ox 11/15/16 23:08 98.6 F 85 16 124/81 97 Temperature: Afebrile Blood Pressure: Normal Pulse: Regular Respiratory Rate: Normal Appearance: Positive for: Well-Appearing, Other (intoxicated) Pain Distress: None Mental Status: Positive for: Alert and Oriented X 3 Medical Decision Making ED Course and Treatment: 11/15/16 23:45 Impression: 55 year old male with alcohol abuse and intoxication. Plan: -- EKG -- Zofran -- Reassess and disposition Prior Visits: Notes and results from previous visits were reviewed. Patient was last seen in the emergency department on 11/10/2016 for alcohol intoxication. Patient was admitted under observation in the emergency department. Re-evaluation Time: 01:59 Reassessment Condition: Re-examined, Improved - Medication Orders Current Medication Orders: Discontinued Medications Ondansetron HCl (Zofran Inj) 8 mg IM STAT STA Stop: 11/16/16 01:26 Last Admin: 11/16/16 01:41 Dose: 8 mg ED OBSERVATION Date of observation admission: 11/16/16 Time of observation admission: 00:40 - Observation admission statement Patient is being placed in observation because:: Intoxication - Goals of Observation Goals of observation are:: Sobriety - Progress Note Progress Note: 11/16/16 00:40 Patient resting comfortably, no complaints at this time. 11/16/2016 01:35 EKG: Ordered, reviewed, and independently interpreted the EKG. Rate : 72 BPM Rhythm : NSR Interpretation : No ST-segment elevations or depressions, no T-wave inversions, normal intervals. Normal ECG. Comparison : No previous EKG for comparison. 11/16/16 02:40 Patient resting comfortably, no complaints at this time. 11/16/16 04:56 Patient resting comfortably, no complaints at this time. - Scribe Statement The provider has reviewed the documentation as recorded by the Mary Montgomery Provider Scribe Attestation: All medical record entries made by the Scribe were at my direction and personally dictated by me. I have reviewed the chart and agree that the record accurately reflects my personal performance of the history, physical exam, medical decision making, and the department course for this patient. I have also personally directed, reviewed, and agree with the discharge instructions and disposition. Disposition/Present on Arrival - Present on Arrival Any Indicators Present on Arrival: No History of DVT/PE: No History of Uncontrolled Diabetes: No Urinary Catheter: No History of Decub. Ulcer: No History Surgical Site Infection Following: None - Disposition Have Diagnosis and Disposition been Completed?: Yes Diagnosis: Alcohol abuse Disposition: HOME/ ROUTINE Disposition Time: 01:59 Patient Problems: Current Active Problems Problem Status Onset ETOH abuse Chronic Condition: GOOD Discharge Instructions (ExitCare): Abuse of Alcohol (ED) Forms: [employer] (Frisian)
[2016-11-16 05:10] VITALS: BP 108/64; PULSE 80; TEMP 98.3; O2SAT 95
--- NOTE | 2016-11-17 01:31 | CARD ---
APPROVED REPORT EKG Measurement Heart [id number] <Conclusion> Normal sinus rhythm Normal ECG
== END 2016-11-16 06:12 | disposition home or self-care (01) ==
LOC: ED 23:02
DX: F10.129 Alcohol abuse with intoxication, unspecified (principal)
CPT/HCPCS: 93005; 96372; 99283; J2405

== ENCOUNTER 2016-11-17 01:07 | Emergency (ER) | payer MEDICAID ==
[2016-11-17 01:07] VITALS: BMI 29.0
[2016-11-17 06:43] VITALS: BP 127/84; PULSE 84; RESP 18; TEMP 97.9; O2SAT 97
== END 2016-11-17 01:08 | disposition left against medical advice (07) ==
LOC: ED 01:07
DX: Z02.89 Encounter for other administrative examinations (principal); F10.10 Alcohol abuse, uncomplicated

== ENCOUNTER 2016-11-17 21:34 | Emergency (ER) | payer MEDICAID ==
[2016-11-17 21:36] VITALS: BMI 29.0
[2016-11-17 21:41] VITALS: BP 124/72; PULSE 74; RESP 18; TEMP 98.1; O2SAT 99
== END 2016-11-17 23:34 | disposition left against medical advice (07) ==
LOC: ED 21:34
DX: Z02.89 Encounter for other administrative examinations (principal); G47.00 Insomnia, unspecified

== ENCOUNTER 2016-11-22 21:32 | Inpatient (IN) | payer MEDICAID ==
[2016-11-22 21:36] VITALS: BMI 29.3
[2016-11-22] MEDS ORDERED: Sodium Chloride 0.9% 1,000 ML IV STA (21:58)
--- NOTE | 2016-11-22 21:58 | ED PDOC ---
Arrival/HPI - General Chief Complaint: Alcohol Ingestion Time Seen by Provider: 11/22/16 21:36 Historian: Patient, EMS - History of Present Illness Narrative History of Present Illness (Text): 11/22/16 21:53 55 y/o male, pmh including htn/ICH/GI bleed/erosive esophogitis/T1 compression fracture/COPD, psychiatric history including alcohol abuse, penicillin allergy, biba c/o abdominal pain with nausea/vomiting with bright red blood x 1 day. Pt. stated that he has been having epigastric abdominal pain today, associated with nausea and multiple episodes of vomiting with bright red blood. Pt. has no chest pain or shortness of breath, no palpitation, no night sweat, no rash, no other medical or psychological complaints. Past Medical History - Provider Review Nursing Documentation Reviewed: Yes - Past History Past History: No Previous - Infectious Disease Hx of Infectious Diseases: None - Tetanus Immunization Tetanus Immunization: Unknown - Reproductive Currently : No - Cardiac Hx Cardiac Disorders: Yes Hx Hypertension: Yes (DENIES) - Pulmonary Hx Asthma: Yes Hx Bronchitis: Yes Hx Chronic Obstructive Pulmonary Disease (COPD): Yes - Neurological Hx Neurological Disorder: No HX Cerebrovascular Accident: No - HEENT Hx HEENT Disorder: No - Renal Hx Renal Disorder: No - Endocrine/Metabolic Hx Endocrine Disorders: Yes Hx Diabetes Mellitus Type 2: Yes - Hematological/Oncological Hx Blood Disorders: Yes - Integumentary Hx Dermatological Disorder: Yes Other/Comment: GENERALIZED MULTIPLE REDDENED RASH TO WHOLE FACE AND CHEST,LOWER PART OF ABDOMINAL AREA. ALSO HAS GENERALIZED INSECT BITES ALL OVER ARMS AND LEGS AND BACK AND BODY. TATTOOS ALL OVER ARMS BACK AND LEGS. - Musculoskeletal/Rheumatological Hx Musculoskeletal Disorders: Yes Hx Falls: Yes - Gastrointestinal Hx Gastrointestinal Disorders: Yes (GI BLEED) Hx Gall Bladder Disease: Yes Hx Pancreatitis: Yes Other/Comment: X2 HERNIA REPAIR acid reflux - Genitourinary/Gynecological Hx Genitourinary Disorders: Yes (ORCHIECTOMY) - Psychiatric Hx Psychophysiologic Disorder: Yes Hx Anxiety: Yes Hx Depression: Yes Hx Substance Use: No (DENIES) - Surgical History Hx Cardiac Catheterization: No Hx Coronary Stent: No Hx Musculoskeletal Surgery: Yes (Left hand surgery DENIES) - Anesthesia Hx Anesthesia: Yes Hx Anesthesia Reactions: No Hx Malignant Hyperthermia: No - Suicidal Assessment Feels Threatened In Home Enviroment: No Family/Social History - Physician Review Nursing Documentation Reviewed: Yes Family/Social History: Unknown Family HX Smoking Status: Current Some Days Smoker Hx Alcohol Use: Yes (DRINKS 2 6 PK/D.DRANK SINCE HE WAS 16 YRS OLD.H/O OF PARENTS DRINKING.) Amount per day: 10 Hx Substance Use: No (DENIES) Hx Substance Use Treatment: No Allergies/Home Meds Allergies/Adverse Reactions: Allergies Penicillins Allergy (Verified 10/22/16 00:38) RASH Home Medications: Home Meds Medication Instructions Recorded Confirmed No Known Home Med 11/09/16 11/22/16 Review of Systems - Review of Systems Constitutional: Fatigue. absent: Fevers Eyes: absent: Vision Changes ENT: absent: Hearing Changes Respiratory: absent: SOB, Cough Cardiovascular: absent: Chest Pain Gastrointestinal: Abdominal Pain, Nausea, Vomiting, Hematemesis. absent: Diarrhea Neurological: absent: Headache, Dizziness, Focal Weakness, Gait Changes Physical Exam Vital Signs Reviewed: Yes Vital Signs Temp Pulse Resp BP Pulse Ox 11/23/16 00:03 99 H 16 122/91 H 95 11/22/16 23:56 95 H 18 120/89 98 11/22/16 21:46 98.3 F 90 20 145/89 95 Temperature: Afebrile Blood Pressure: Normal Pulse: Regular Respiratory Rate: Normal Appearance: Positive for: Well-Appearing, Non-Toxic Pain Distress: Moderate Mental Status: Positive for: Alert and Oriented X 3 - Systems Exam Head: Present: Atraumatic, Normocephalic Pupils: Present: PERRL Extroacular Muscles: Present: EOMI Conjunctiva: Present: Normal Mouth: Present: Moist Mucous Membranes Neck: Present: Normal Range of Motion Respiratory/Chest: Present: Clear to Auscultation, Good Air Exchange. No: Respiratory Distress, Accessory Muscle Use Cardiovascular: Present: Regular Rate and Rhythm, Normal S1, S2. No: Murmurs Abdomen: Present: Tenderness (epigastric tenderness), Normal Bowel Sounds. No: Distention, Peritoneal Signs, Rebound, Guarding Back: Present: Normal Inspection Upper Extremity: Present: Normal Inspection. No: Cyanosis, Edema Lower Extremity: Present: Normal Inspection. No: Edema Neurological: Present: GCS=15, Speech Normal, Motor Func Grossly Intact, Gait Normal, Memory Normal Skin: Present: Warm, Dry, Normal Color. No: Rashes Psychiatric: Present: Alert, Oriented x 3, Normal Insight, Normal Concentration Medical Decision Making ED Course and Treatment: 11/22/16 22:02 -labs/ua/alcohol level -type and screen -ekg/cxr -IVF/protonix/zofran -NPO 11/22/16 23:13 -EKG: NSR @ 93 BPM, no acute ST or T wave changes compared with previous ekg. -Chest x-ray: wet read show no active disease -Labs are non-significant except hgb 10.5, Na 127, K+ 3.0, Mg 1.5 -Serum alcohol: 289 -Pt. needs to be admitted for observation with GI consult 11/22/16 23:18 -Pt. agreed to be admitted -Case/labs/radiology result discussed with the medical investigator Dr. Julio and Dr. Whitney, they will come to evaluate the patient for remote-tele observation plan. -I discussed with Dr. Palacio and he will put in the admission order. - Lab Interpretations Lab Results: 11/22/16 22:20 11/22/16 22:20 Lab Results 11/22/16 22:20: Alcohol, Quantitative 289 H 11/22/16 22:20: Blood Type O POSITIVE, Antibody Screen Negative, BBK History Checked Patient has bt 11/22/16 22:20: WBC 10.0, RBC 4.14, Hgb 10.5 L, Hct 31.5 L, MCV 76.1 L, MCH 25.4 , MCHC 33.3, RDW 17.8 H, Plt Count 204, MPV 8.3, Gran % 77.8 H, Lymph % (Auto) 10.3 L, [place] % (Auto) 11.5 H, Eos % (Auto) 0.2 L, Baso % (Auto) 0.2, Gran # 7.79 H, Lymph # 1.0 L, Atlantic # 1.2 H, Eos # 0.0, Baso # 0.02 11/22/16 22:20: Sodium 127 L, Potassium 3.0 L, Chloride 84 L, Carbon Dioxide 28 , Anion Gap 18, BUN 8, Creatinine 0.7, Est GFR ( Amer) > 60, Est GFR (Non -Af Amer) > 60, Random Glucose 137 H, Calcium 8.4, Magnesium 1.5 L, Total Bilirubin 0.5, AST 70 H, ALT 52, Alkaline Phosphatase 94, Total Protein 7.2, Albumin 4.0, Globulin 3.2, Albumin/Globulin Ratio 1.3 11/22/16 22:20: PT 12.4 H, INR 1.15 H, APTT 30.0 I have reviewed the lab results: Yes - RAD Interpretation Radiology Orders: 11/22/16 21:58 CHEST PORTABLE [RAD] Stat no active disease [employer]: Radiologist - EKG Interpretation EKG Interpretation (Text): 11/22/16 23:12 NSR @ 93 BPM, no acute ST or T wave changes compared with previous ekg. Type: 12 lead EKG Comparison: Com.w/previous EKG - Medication Orders Current Medication Orders: Chlordiazepoxide (Librium) 25 mg PO Q8 [facility] PRN Reason: Protocol Last Admin: 11/24/16 15:00 Dose: 25 mg Folic Acid (Folic Acid) 1 mg PO DAILY [facility] Last Admin: 11/24/16 10:34 Dose: 1 mg Heparin Sodium (Porcine) (Heparin) 5,000 units SC Q8 [facility] PRN Reason: Protocol Last Admin: 11/24/16 15:00 Dose: 5,000 units Lorazepam (Ativan) 1 mg IVP Q2H PRN; Protocol PRN Reason: For alcohol withdrawal Last Admin: 11/24/16 13:42 Dose: 1 mg Re-Assess: Reassess Psych Meds Document 11/24/16 14:12 (Rec: 11/24/16 14:18 [id number]) Reassess Psych Med Effective Multivitamins/Vitamin C (Multi-Delyn Liquid) 15 ml PO 0800 [facility] Last Admin: 11/24/16 08:20 Dose: 15 ml Ondansetron HCl (Zofran Inj) 4 mg IVP Q4H PRN PRN Reason: Nausea/Vomiting Last Admin: 11/24/16 14:52 Dose: 4 mg Pantoprazole Sodium (Protonix Ec Tab) 40 mg PO 0600,1600 [facility] Last Admin: 11/24/16 15:01 Dose: 40 mg Thiamine HCl (Vitamin B1 Tab) 100 mg PO DAILY [facility] Last Admin: 11/24/16 10:34 Dose: 100 mg Discontinued Medications Aspirin (Aspirin) 325 mg PO STAT STA Stop: 11/23/16 02:37 Last Admin: 11/23/16 02:51 Dose: 325 mg Aspirin (Aspirin Chewable) 81 mg PO DAILY [facility] Last Admin: 11/23/16 10:42 Dose: 81 mg Atorvastatin Calcium (Lipitor) 10 mg PO DIN [facility] Last Admin: 11/23/16 02:51 Dose: 10 mg Sodium Chloride (Sodium Chloride 0.9%) 1,000 mls @ 999 mls/hr IV .Q1H1M STA Stop: 11/22/16 22:58 Last Admin: 11/22/16 23:06 Dose: 999 mls/hr Magnesium Sulfate/Dextrose (Magnesium Sulfate 1 Gm/100 Ml D5w) 1 gm in 100 mls @ 100 mls/hr IVPB ONCE ONE Stop: 11/23/16 00:13 Last Admin: 11/22/16 23:31 Dose: 100 mls/hr Multivitamins/Vitamin C 10 ml/Thiamine HCl 100 mg/ Folic Acid 1 mg/ Sodium Chloride 1,011.2 mls @ 100 mls/hr IV .Q10H7M ONE Stop: 11/23/16 12:37 Last Admin: 11/23/16 07:47 Dose: 100 mls/hr Magnesium Sulfate 2 gm/ Sodium (Chloride) 104 mls @ 102 mls/hr IVPB ONCE ONE Stop: 11/24/16 11:08 Last Admin: 11/24/16 10:48 Dose: 102 mls/hr Ondansetron HCl (Zofran Inj) 4 mg IVP STAT STA Stop: 11/22/16 22:00 Last Admin: 11/22/16 23:06 Dose: 4 mg Pantoprazole Sodium (Protonix Inj) 40 mg IVP STAT STA Stop: 11/22/16 21:59 Last Admin: 11/22/16 23:05 Dose: 40 mg Pantoprazole Sodium (Protonix Inj) 40 mg IVP DAILY [facility] Last Admin: 11/23/16 10:42 Dose: 40 mg Potassium Chloride (K-Dur 20 Meq Er Tab) 40 meq PO STAT STA Stop: 11/22/16 22:56 Last Admin: 11/22/16 23:31 Dose: 40 meq Potassium Chloride (K-Dur 20 Meq Er Tab) 40 meq PO STAT STA Stop: 11/23/16 11:46 Last Admin: 11/23/16 12:55 Dose: 40 meq Potassium Chloride (K-Dur 20 Meq Er Tab) 40 meq PO STAT STA Stop: 11/24/16 10:09 Last Admin: 11/24/16 10:40 Dose: 40 meq Simethicone (Mylicon Liq) 40 mg PO STAT STA Stop: 11/24/16 00:59 Last Admin: 11/24/16 01:27 Dose: 40 mg Thiamine HCl (Vitamin B1 Tab) 50 mg PO DAILY [facility] - 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 Disposition/Present on Arrival - Present on Arrival Any Indicators Present on Arrival: No History of DVT/PE: No History of Uncontrolled Diabetes: No Urinary Catheter: No History of Decub. Ulcer: No History Surgical Site Infection Following: None - Disposition Have Diagnosis and Disposition been Completed?: Yes Diagnosis: Hypokalemia, Alcohol abuse, Anemia, GI bleed, Hypomagnesemia, Alcohol intoxication Disposition: HOSPITALIZED Disposition Time: 23:17 Patient Plan: Observation, Telemetry Patient Problems: Current Active Problems Problem Status Onset Alcohol intoxication Acute Anemia Acute GI bleed Acute Hypokalemia Acute Hypomagnesemia Acute ETOH abuse Chronic Condition: GUARDED
[2016-11-22 22:46] LABS: ALB/GLOB RATIO 1.3 (1.1-1.8); ALKALINE PHOSPHATASE 94 U/L (38-126); ALT/SGPT 52 U/L (7-56); AST/SGOT 70 U/L (17-59); BILIRUBIN,TOTAL 0.5 mg/dL (0.2-1.3); BLOOD UREA NITROGEN 8 mg/dL (7-21); CALCIUM 8.4 mg/dL (8.4-10.5); CARBON DIOXIDE 28 mmol/L (21-33); CHLORIDE 84 mmol/L (98-107); GFR AFRICAN-AMERICAN > 60; GLUCOSE,RANDOM 137 mg/dL (70-110); MAGNESIUM 1.5 mg/dL (1.7-2.2); SODIUM 127 mmol/L (132-148); TOTAL PROTEIN 7.2 g/dL (5.8-8.3)
[2016-11-22 22:47] LABS: BASO # 0.02 K/mm3 (0.0-2.0); BASO % 0.2 % (0.0-3.0); EOS % 0.2 % (1.5-5.0); GRAN # 7.79 (1.4-6.5); GRAN % 77.8 % (50.0-68.0); HEMATOCRIT 31.5 % (42.0-52.0); LYMPH % 10.3 % (22.0-35.0); MEAN CELL VOLUME 76.1 fl (80.0-105.0); MEAN CORPUSCULAR HEMOGLOBIN 25.4 pg (25.0-35.0); MEAN CORPUSCULAR HGB CONC 33.3 g/dl (31.0-37.0); MEAN PLATELET VOLUME 8.3 fl (7.0-11.0); MONO # 1.2 (0.1-0.6); MONO % 11.5 % (1.0-6.0); RED CELL DISTRIBUTION WIDTH 17.8 % (11.5-14.5)
[2016-11-22] MEDS ORDERED: Potassium Chloride 20 mEq ER Tab PO STA (22:55)
[2016-11-22 23:01] LABS: INR 1.15 (0.93-1.08)
[2016-11-22] MEDS ORDERED: Magnesium Sulfate 1 gm in D5W 1 GM/100 ML BAG IVPB ONE (23:14)
[2016-11-23 00:18] LABS: URINE BILIRUBIN NEGATIVE (NEGATIVE); URINE BLOOD NEGATIVE (NEGATIVE); URINE GLUCOSE (UA) NEGATIVE (NEGATIVE); URINE KETONE NEGATIVE (NEGATIVE); URINE LEUKOCYTE ESTERASE NEGATIVE Leu/uL (NEGATIVE); URINE PROTEIN NEGATIVE mg/dL (<30 mg/dL); URINE UROBILINOGEN 0.2 E.U./dL (<1 E.U./dL)
[2016-11-23 00:30] LABS: URINE COLOR YELLOW (YELLOW)
[2016-11-23 00:31] LABS: URINE APPEARANCE CLEAR (CLEAR)
[2016-11-23] MEDS ORDERED: Multivitamin (MVI) 10 ML, Thiamine 100 MG, Folic Acid 1 MG in Sodium Chloride 0.9% 1,00... IV ONE (02:31)
--- NOTE | 2016-11-23 02:43 | CP.PCM.HP ---
<RICK GAMBLE - Last Filed: 11/23/16 03:02> History of Present Illness - History of Present Illness History of Present Illness: Rick Gamble, H&P, for Dr. Whitney: CC: hemoptysis 55M with PMH significant for chornic alcoholism, HTN, chornic pancreatitis, erosive esophagitis, anemia, presents for hemoptysisx2 and 1 episode brown vomit x1, since this AM. Pt states that he started to spit up bright red blood, twice this morning. He then had an episode of brown vomit, nonbilious tis evening. He reports also having suprapubic and right lower quadrant crampy abdominal pain since this AM, denies hematochezia, melena, headache, blurry vision, cardiac symptoms, leg swelling. In ED, pt afebrile, HR 99, nrml BP 120's /80s, Hgb 10.5 (baseline 10.4), elevtrolyte derangesment Na 127, K 3, Cl 84, BUN /Cr 8/0/7, mildly elevated AST 70, ETOH level 289, CXr nrml, UA neg for blood or infxn. Received [id number], zofran 4 mg IVx1, Protonix 40 mg IVx1, KCL 40 mEQ Pox1, and IL NS bolus in ED. Currently, pt reports midsternal chest/epigastric pain radiating to right shoulder/upper back, with some associated sob, diaphoresis, palpitations. States that last episode of spitting up blood was at 5 pm. PMH: Chronic alcoholism, HTN, GERD, anemia, chronic pancreatitis, erosive esophagitis/gastritis, and COPD, T1 compression fracture Surgical Hx: R incarcerated inguinal hernia repair and R orchiectomy ALL: PCN SH: Daily alcohol use- drinks 12 24oz beers per day. Former heavy smoker- now smokes "1 cigarette" per day. Denies drug use. FH: Dad Rectal cancer, Mother: Ovarian CA Meds: None, frequently non-compliant and reports not being able to afford his meds. PMD: Dr. Alexander Present on Admission - Present on Admission Any Indicators Present on Admission: No History of DVT/PE: No History of Uncontrolled Diabetes: No Urinary Catheter: No Decubitus Ulcer Present: No History Surgical Site Infection Following: None Review of Systems - Review of Systems All systems: reviewed and no additional remarkable complaints except Review of Systems: as per HPI Past Patient History - Infectious Disease Hx of Infectious Diseases: None - Tetanus Immunizations Tetanus Immunization: Unknown - Past Medical History & Family History Past Medical History?: Yes - Past Social History Smoking Status: Never Smoked - CARDIAC Hx Cardiac Disorders: Yes Hx Hypertension: Yes (DENIES) - PULMONARY Hx Asthma: Yes Hx Bronchitis: Yes Hx Chronic Obstructive Pulmonary Disease (COPD): Yes - NEUROLOGICAL Hx Neurological Disorder: No HX Cerebrovascular Accident: No - HEENT Hx HEENT Problems: No - RENAL Hx Chronic Kidney Disease: No - ENDOCRINE/METABOLIC Hx Endocrine Disorders: Yes Hx Diabetes Mellitus Type 2: Yes - HEMATOLOGICAL/ONCOLOGICAL Hx Blood Disorders: Yes - INTEGUMENTARY Hx Dermatological Problems: Yes Other/Comment: GENERALIZED MULTIPLE REDDENED RASH TO WHOLE FACE AND CHEST,LOWER PART OF ABDOMINAL AREA. ALSO HAS GENERALIZED INSECT BITES ALL OVER ARMS AND LEGS AND BACK AND BODY. TATTOOS ALL OVER ARMS BACK AND LEGS. - MUSCULOSKELETAL/RHEUMATOLOGICAL Hx Musculoskeletal Disorders: Yes Hx Falls: Yes - GASTROINTESTINAL Hx Gastrointestinal Disorders: Yes (GI BLEED) Hx Gall Bladder Disease: Yes Hx Pancreatitis: Yes Other/Comment: X2 HERNIA REPAIR acid reflux - GENITOURINARY/GYNECOLOGICAL Hx Genitourinary Disorders: Yes (ORCHIECTOMY) - PSYCHIATRIC Hx Psychophysiologic Disorder: Yes Hx Anxiety: Yes Hx Depression: Yes - SURGICAL HISTORY Hx Cardiac Catheterization: No Hx Coronary Stent: No Hx Musculoskeletal Surgery: Yes (Left hand surgery DENIES) - ANESTHESIA Hx Anesthesia: Yes Hx Anesthesia Reactions: No Hx Malignant Hyperthermia: No Meds Allergies/Adverse Reactions: Allergies Allergy/AdvReac Type Severity Reaction Status Date / Time Penicillins Allergy RASH Verified 10/22/16 00:38 Physical Exam - Constitutional Appears: Non-toxic, Unkempt, Older Than Stated Age, Chronically Ill - Head Exam Head Exam: ATRAUMATIC, NORMOCEPHALIC - Eye Exam Eye Exam: Normal appearance, PERRL. absent: Conjunctival injection, Scleral icterus Pupil Exam: NORMAL ACCOMODATION, PERRL - ENT Exam ENT Exam: Mucous Membranes Moist - Neck Exam Neck exam: Positive for: Normal Inspection. Negative for: Thyromegaly - Respiratory Exam Respiratory Exam: Clear to Auscultation Bilateral. absent: Accessory Muscle Use , Wheezes - Cardiovascular Exam Cardiovascular Exam: RRR, +S1, +S2. absent: Systolic Murmur - GI/Abdominal Exam GI & Abdominal Exam: Distended, Normal Bowel Sounds. absent: Guarding, Rebound , Rigid Additional comments: obese male - Extremities Exam Extremities exam: Positive for: pedal pulses present. Negative for: calf tenderness, pedal edema - Back Exam Back exam: NORMAL INSPECTION. absent: CVA tenderness (L), CVA tenderness (R) Results - Vital Signs Recent Vital Signs: Last Vital Signs Temp 98.8 F 11/23/16 00:36 Pulse 96 H 11/23/16 02:00 Resp 18 11/23/16 00:36 BP 115/76 11/23/16 00:36 Pulse Ox 95 11/23/16 00:03 - Labs Result Diagrams: 11/22/16 22:20 11/22/16 22:20 Labs: Laboratory Results - last 24 hr 11/23/16 00:05 Urine Color Yellow Urine Appearance Clear Urine pH 6.0 Ur Specific [place] <= 1.005 Urine Protein Negative Urine Glucose (UA) Negative Urine Ketones Negative Urine Blood Negative Urine Nitrate Negative Urine Bilirubin Negative Urine Urobilinogen 0.2 Ur Leukocyte Esterase Negative Assessment & Plan - Assessment and Plan (Free Text) Assessment: 55M with PMH HTN, chronic alcoholism, erosive esophagitis, anemia, presents for hemoptysis, chest pain, ETOH intoxication, and epigastric pain 2/2 likely acute on chronic pancreatitis? Plan: Hemoptysis, r/o GI Bleed: - Pt c/o 2 episodes of hemoptysis in AM; followed by 1 episode of vomiting brown blood tonight. - GI c/s placed - Hgb 10.5, baseline 10.4, cbc q4h, trend - Type and screen - NPO - IVF @ 100 - Protonix daily - Zofran prn nausea Chest pain, r/o ACS: - Pt c/o epigastric pain/cp, radiating to right shoulder/back, with associated sob, diaphoresis, palpitations. - trop neg x1, ekg neg for ST changes - f/u serial trops - statin, ASA 325 mg x1, then daily 81 mg ASA - f/u lipid panel, [id number] - Previous echo ef 67%. mild AR/PI - Pt has a hx of chronic pancreatitis. epigastric pain radiating to right shoulder/back: likely acute on chronic pancreatitis 2/2 alcohol abuse. Will obtain amylase, lipase. ETOH intoxication/ ETOH withdrawal: - Serum alcohol level 289. pt has a hx of alcohol abuse 6 12oz beers/day for many years - Last drink tonight around 6 PM: 2 beers reported by pt - Give 1L banana bag, then folate, mvt, thiamine PO daily - on CIWA protocol, seizure and fall prec - Ativan 1 mg q2h prn alcohol withdrawal Hx of COPD: - no home meds. cont to monitor resp status. Discussed with Dr Devonte Gamble, PGY1 - Date & Time Date: 11/23/16 Time: 03:35 <Franc Whitney - Last Filed: 11/24/16 14:11> Results - Vital Signs Recent Vital Signs: Last Vital Signs Temp 98.8 F 11/24/16 11:58 Pulse 78 11/24/16 11:58 Resp 18 11/24/16 11:58 BP 147/93 H 11/24/16 11:58 Pulse Ox 95 11/24/16 10:00 - Labs Result Diagrams: 11/24/16 06:42 11/24/16 06:42 Labs: Laboratory Results - last 24 hr 11/23/16 11/24/16 11/24/16 19:00 06:42 06:42 WBC 5.0 D RBC 3.98 Hgb 9.7 L Hct 31.5 L MCV 79.1 L MCH 24.4 L MCHC 30.8 L RDW 17.9 H Plt Count 150 MPV 8.5 Sodium 135 Potassium 3.5 L Chloride 97 L Carbon Dioxide 28 Anion Gap 14 BUN 7 Creatinine 0.7 Est GFR ( Amer) > 60 Est GFR (Non-Af Amer) > 60 Random Glucose 95 Calcium 8.3 L Magnesium 1.5 L Total Bilirubin 0.8 AST 46 ALT 45 Alkaline Phosphatase 95 Lactate Dehydrogenase 415 Total Creatine Kinase 45 Troponin I < 0.01 Total Protein 6.7 Albumin 3.5 Globulin 3.2 Albumin/Globulin Ratio 1.1 Attending/Attestation - Attestation I have personally seen and examined this patient.: Yes I have fully participated in the care of the patient.: Yes I have reviewed all pertinent clinical information: Yes Notes (Text): 11/24/16 14:10 Patient was seen when he was in bed # 263-01. Agree with history ,physical examination, assessment and plan.
[2016-11-23 03:58] LABS: HEMATOCRIT 33.4 % (42.0-52.0); WHITE BLOOD COUNT 7.4 10^3/ul (4.5-11.0)
[2016-11-23 03:59] LABS: EOS % 0.4 % (1.5-5.0); GRAN % 69.4 % (50.0-68.0); LYMPH % 18.1 % (22.0-35.0); MEAN CELL VOLUME 75.9 fl (80.0-105.0); MEAN CORPUSCULAR HEMOGLOBIN 24.8 pg (25.0-35.0); MEAN CORPUSCULAR HGB CONC 32.6 g/dl (31.0-37.0); MEAN PLATELET VOLUME 8.2 fl (7.0-11.0); MONO % 11.8 % (1.0-6.0); RED CELL DISTRIBUTION WIDTH 18.7 % (11.5-14.5)
[2016-11-23 04:00] LABS: BASO # 0.02 K/mm3 (0.0-2.0); BASO % 0.3 % (0.0-3.0); GRAN # 5.16 (1.4-6.5); LYMPH # 1.4 (1.2-3.4); MONO # 0.9 (0.1-0.6)
[2016-11-23 06:20] LABS: TROPONIN I < 0.01 ng/mL
[2016-11-23 07:14] LABS: BASO # 0.02 K/mm3 (0.0-2.0); BASO % 0.3 % (0.0-3.0); EOS # 0.1 (0.0-0.7); EOS % 0.8 % (1.5-5.0); GRAN # 4.3 (1.4-6.5); GRAN % 64.6 % (50.0-68.0); LYMPH # 1.4 (1.2-3.4); LYMPH % 21.5 % (22.0-35.0); MEAN CELL VOLUME 77.3 fl (80.0-105.0); MEAN CORPUSCULAR HEMOGLOBIN 24.7 pg (25.0-35.0); MEAN CORPUSCULAR HGB CONC 31.9 g/dl (31.0-37.0); MEAN PLATELET VOLUME 8.6 fl (7.0-11.0); MONO # 0.9 (0.1-0.6); MONO % 12.8 % (1.0-6.0); WHITE BLOOD COUNT 6.7 10^3/ul (4.5-11.0)
--- NOTE | 2016-11-23 08:33 | RAD ---
HISTORY: medical clearance COMPARISON: Chest x-ray performed 08/27/16 TECHNIQUE: Chest, one view. FINDINGS: LUNGS: No focal consolidation. Please note that chest x-ray has limited sensitivity for the detection of pulmonary masses. PLEURA: No significant pleural effusion identified. No definite pneumothorax . CARDIOVASCULAR: Borderline cardiomegaly. OSSEOUS STRUCTURES: Mild degenerative changes of the spine. VISUALIZED UPPER ABDOMEN: Unremarkable. OTHER FINDINGS: None. IMPRESSION: No focal consolidation, significant pleural effusion, or definite pneumothorax identified. Borderline cardiomegaly.
--- NOTE | 2016-11-23 08:56 | CARD ---
APPROVED REPORT EKG Measurement Heart [id number] <Conclusion> Normal sinus rhythm Possible Anterior infarct, age undetermined Abnormal ECG
[2016-11-23 10:48] LABS: ALB/GLOB RATIO 1.2 (1.1-1.8); ALKALINE PHOSPHATASE 90 U/L (38-126); ALT/SGPT 50 U/L (7-56); AST/SGOT 60 U/L (17-59); BILIRUBIN,TOTAL 0.4 mg/dL (0.2-1.3); BLOOD UREA NITROGEN 5 mg/dL (7-21); CALCIUM 8.3 mg/dL (8.4-10.5); CARBON DIOXIDE 26 mmol/L (21-33); CHLORIDE 97 mmol/L (98-107); GFR AFRICAN-AMERICAN > 60; GLUCOSE,RANDOM 101 mg/dL (70-110); POTASSIUM 3.2 mmol/L (3.6-5.0); SODIUM 139 mmol/L (132-148)
[2016-11-23] MEDS ORDERED: Potassium Chloride 20 mEq ER Tab PO STA (11:45)
[2016-11-23 13:20] LABS: HEMATOCRIT 32.3 % (42.0-52.0); MEAN CELL VOLUME 78.6 fl (80.0-105.0); MEAN CORPUSCULAR HEMOGLOBIN 24.8 pg (25.0-35.0); MEAN CORPUSCULAR HGB CONC 31.6 g/dl (31.0-37.0); MEAN PLATELET VOLUME 8.5 fl (7.0-11.0); WHITE BLOOD COUNT 7.9 10^3/ul (4.5-11.0)
[2016-11-23 13:38] LABS: TROPONIN I < 0.01 ng/mL
[2016-11-23 20:14] LABS: TROPONIN I < 0.01 ng/mL
--- NOTE | 2016-11-23 20:35 | CON ---
DATE: 11/23/2016 REQUESTING PHYSICIAN: Dr. Goel. REASON FOR CONSULTATION: Chest pain. HISTORY OF PRESENT ILLNESS: This is a 55-year-old man with a history of chronic alcohol abuse, admitted with hematemesis and chest discomfort. He is seen lying in bed on telemetry. He is hemodynamically stable at present. He reportedly had brown vomitus yesterday as well as some bright red blood. He also complained of a sharp retrosternal chest discomfort and cardiac evaluation was requested. He has a long-standing history of chronic alcohol abuse and has had multiple admissions in the past for complications of this. He denies any chest pain at the present time. PAST MEDICAL HISTORY: His past history is notable for the problems mentioned above. He has had history of pancreatitis, gastritis and esophagitis, COPD, compression fracture, gastroesophageal reflux disease, and chronic anemia. He has undergone prior repair of incarcerated inguinal hernia as well as a right orchiectomy. CURRENT MEDICATIONS: Include aspirin, Ativan, Librium, Lipitor. ALLERGIES: HE HAS HAD REACTION TO PENICILLIN IN THE PAST. SOCIAL HISTORY: He drinks heavily every day. He was a former heavy smoker as well but continues to smoke few cigarettes per day. FAMILY HISTORY: Father from colon cancer, mother from ovarian cancer. REVIEW OF SYSTEMS: A 10-point review of systems is notable mainly for the problems listed above. PHYSICAL EXAMINATION: GENERAL: He is somewhat disheveled appearing middle-age man. VITAL SIGNS: His blood pressure is 116/76 with a pulse of 90 and sinus, respirations are 16. He is afebrile. HEENT: No JVD. NECK: Supple. CHEST: Reveals bilateral scattered rhonchi. HEART: PMI in normal position. No pathological gallops noted. ABDOMEN: Soft, mildly distended. Bowel sounds are present. Hepatomegaly is noted. EXTREMITIES: No clubbing, cyanosis, or edema. SKIN: Warm and dry. PSYCHIATRIC: Normal mood and affect. NEUROLOGIC: No gross motor or sensory was appreciable. DIAGNOSTIC DATA: White count 6.7, hemoglobin and hematocrit 9.9 and 31.1 with MCV of 77, platelet count of 168,000. PT/PTT 12.4 and 30.0. Potassium 3.2, BUN and creatinine are 5 and 0.7. AST and ALT is 60 and 90. Two sets of cardiac enzymes are normal. Alcohol level is 289. IMPRESSION: 1. Chest pain likely due to gastroesophageal irritation from vomiting. Pain does not sound cardiac in nature whatsoever. 2. Chronic alcohol abuse with acute intoxication. 3. Mild microcytic anemia. Rest of the problems as noted. RECOMMENDATIONS: As this chest pain appears completely noncardiac in nature, there is no role for aspirin use at this time. In fact, this may exacerbate any gastritis present. In addition, there is no need for Lipitor use which has been initiated, especially in the setting of probable advance liver disease. We will continue to follow along as needed. Freddie Ohara MD
[2016-11-24] MEDS ORDERED: Simethicone 40 mg/0.6 ml Liquid (30 ml) PO STA (00:58)
[2016-11-24 06:51] LABS: HEMATOCRIT 31.5 % (42.0-52.0); MEAN CELL VOLUME 79.1 fl (80.0-105.0); MEAN CORPUSCULAR HEMOGLOBIN 24.4 pg (25.0-35.0); MEAN CORPUSCULAR HGB CONC 30.8 g/dl (31.0-37.0); MEAN PLATELET VOLUME 8.5 fl (7.0-11.0); RED CELL DISTRIBUTION WIDTH 17.9 % (11.5-14.5)
[2016-11-24 07:11] LABS: ALB/GLOB RATIO 1.1 (1.1-1.8); ALKALINE PHOSPHATASE 95 U/L (38-126); ALT/SGPT 45 U/L (7-56); AST/SGOT 46 U/L (17-59); BILIRUBIN,TOTAL 0.8 mg/dL (0.2-1.3); BLOOD UREA NITROGEN 7 mg/dL (7-21); CALCIUM 8.3 mg/dL (8.4-10.5); CHLORIDE 97 mmol/L (98-107); GFR AFRICAN-AMERICAN > 60; GLUCOSE,RANDOM 95 mg/dL (70-110); MAGNESIUM 1.5 mg/dL (1.7-2.2); POTASSIUM 3.5 mmol/L (3.6-5.0); SODIUM 135 mmol/L (132-148); TOTAL PROTEIN 6.7 g/dL (5.8-8.3)
[2016-11-24 07:50] LABS: CARBON DIOXIDE 28 mmol/L (21-33)
[2016-11-24] MEDS: Multi Vitamins 15 mL UD Oral Solution PO SCH (08:20)
--- NOTE | 2016-11-24 09:04 | CP.PCM.CON ---
<Karma Fajardo - Last Filed: 11/24/16 10:32> History of Present Illness - History of Present Illness History of Present Illness: GI Fellow PGY4 Consult Note This is a 55yM with a pmhx of COPD, Alcohol Abuse, Alchololic Pancreatitis, Recurrent Upper GI bleed due to severe esophagitis LA Grade C/D with ulcerations presenting with abdominal pain. Patient describes chest/back/ and mid epigastric abdominal pain for the last two days. He reports running out of PPI and has not taken any medication in two weeks. Pt reports one episode of hemetemesis but denies any melena or hematochezia. Per nursing staff, no active GI bleeding last night but pt was seen trying to induced vomiting by placing fingers down his throat. Pt reports noncompliance with outpt GI followup. Pt reports that he continues to drink and last drink was prior to ER presentation. History of six 24-oz beers daily with intermittent vodka use. EGD 04/2016 showed LA Grade D esophagitis at GE junction, LA Grade C at 26cm from incisors, and GE ulcerations. No prior colonoscopy. ROS: A 12pt ROS was obtained and was negative except as above. PmHx: As stated in HPI PsHx: right hernia, right orchiectomy FHx: Father-rectal cancer, mother-ovarian cancer SHx: Daily 6 24 ounce beers, intermittent vodka, former heavy tobacco use, 1 cigarette daily, denies illicit drug use Past Patient History - Infectious Disease Hx of Infectious Diseases: None - Tetanus Immunizations Tetanus Immunization: Unknown - Past Medical History & Family History Past Medical History?: Yes - Past Social History Smoking Status: Never Smoked - CARDIAC Hx Cardiac Disorders: Yes Hx Hypertension: Yes (DENIES) - PULMONARY Hx Asthma: Yes Hx Bronchitis: Yes Hx Chronic Obstructive Pulmonary Disease (COPD): Yes - NEUROLOGICAL Hx Neurological Disorder: No HX Cerebrovascular Accident: No - HEENT Hx HEENT Problems: No - RENAL Hx Chronic Kidney Disease: No - ENDOCRINE/METABOLIC Hx Endocrine Disorders: Yes Hx Diabetes Mellitus Type 2: Yes - HEMATOLOGICAL/ONCOLOGICAL Hx Blood Disorders: Yes - INTEGUMENTARY Hx Dermatological Problems: Yes Other/Comment: GENERALIZED MULTIPLE REDDENED RASH TO WHOLE FACE AND CHEST,LOWER PART OF ABDOMINAL AREA. ALSO HAS GENERALIZED INSECT BITES ALL OVER ARMS AND LEGS AND BACK AND BODY. TATTOOS ALL OVER ARMS BACK AND LEGS. - MUSCULOSKELETAL/RHEUMATOLOGICAL Hx Musculoskeletal Disorders: Yes Hx Falls: Yes - GASTROINTESTINAL Hx Gastrointestinal Disorders: Yes (GI BLEED) Hx Gall Bladder Disease: Yes Hx Pancreatitis: Yes Other/Comment: X2 HERNIA REPAIR acid reflux - GENITOURINARY/GYNECOLOGICAL Hx Genitourinary Disorders: Yes (ORCHIECTOMY) - PSYCHIATRIC Hx Psychophysiologic Disorder: Yes Hx Anxiety: Yes Hx Depression: Yes - SURGICAL HISTORY Hx Cardiac Catheterization: No Hx Coronary Stent: No Hx Musculoskeletal Surgery: Yes (Left hand surgery DENIES) - ANESTHESIA Hx Anesthesia: Yes Hx Anesthesia Reactions: No Hx Malignant Hyperthermia: No Meds Allergies/Adverse Reactions: Allergies Allergy/AdvReac Type Severity Reaction Status Date / Time Penicillins Allergy RASH Verified 10/22/16 00:38 - Medications Medications: Current Medications Chlordiazepoxide (Librium) 25 mg PO Q8 [facility] PRN Reason: Protocol Last Admin: 11/24/16 05:48 Dose: 25 mg Folic Acid (Folic Acid) 1 mg PO DAILY [facility] Heparin Sodium (Porcine) (Heparin) 5,000 units SC Q8 [facility] PRN Reason: Protocol Last Admin: 11/24/16 05:48 Dose: 5,000 units Lorazepam (Ativan) 1 mg IVP Q2H PRN; Protocol PRN Reason: For alcohol withdrawal Last Admin: 11/24/16 08:20 Dose: 1 mg Multivitamins/Vitamin C (Multi-Delyn Liquid) 15 ml PO 0800 [facility] Last Admin: 11/24/16 08:20 Dose: 15 ml Ondansetron HCl (Zofran Inj) 4 mg IVP Q4H PRN PRN Reason: Nausea/Vomiting Last Admin: 11/24/16 06:01 Dose: 4 mg Pantoprazole Sodium (Protonix Inj) 40 mg IVP DAILY [facility] Last Admin: 11/23/16 10:42 Dose: 40 mg Thiamine HCl (Vitamin B1 Tab) 100 mg PO DAILY [facility] Physical Exam - Constitutional Appears: Non-toxic, No Acute Distress - Head Exam Head Exam: ATRAUMATIC, NORMAL INSPECTION, NORMOCEPHALIC - Eye Exam Eye Exam: EOMI, PERRL - ENT Exam ENT Exam: Mucous Membranes Moist - Neck Exam Neck exam: Positive for: Normal Inspection - Respiratory Exam Respiratory Exam: Clear to Auscultation Bilateral, NORMAL BREATHING PATTERN - Cardiovascular Exam Cardiovascular Exam: Tachycardia, +S1, +S2 - GI/Abdominal Exam GI & Abdominal Exam: Normal Bowel Sounds, Soft, Tenderness. absent: Organomegaly, Rigid - Rectal Exam Rectal Exam: Deferred - Extremities Exam Extremities exam: Positive for: normal inspection - Back Exam Back exam: NORMAL INSPECTION - Neurological Exam Neurological exam: Alert, Oriented x3 - Psychiatric Exam Psychiatric exam: Flat Affect, Normal Mood - Skin Skin Exam: Dry, Intact, Normal Color, Warm Results - Vital Signs Recent Vital Signs: Last Vital Signs Temp 98.1 F 11/24/16 06:00 Pulse 92 H 11/24/16 06:00 Resp 19 11/24/16 06:00 BP 110/67 11/24/16 06:00 Pulse Ox 96 11/24/16 06:00 - Labs Result Diagrams: 11/24/16 06:42 11/24/16 06:42 Labs: Laboratory Results - last 24 hr 11/23/16 11/23/16 11/23/16 06:00 06:00 13:00 WBC RBC Hgb Hct MCV MCH MCHC RDW Plt Count MPV Sodium 139 Potassium 3.2 L Chloride 97 L Carbon Dioxide 26 Anion Gap 19 BUN 5 L Creatinine 0.7 Est GFR ( Amer) > 60 Est GFR (Non-Af Amer) > 60 Random Glucose 101 Calcium 8.3 L Magnesium Total Bilirubin 0.4 AST 60 H ALT 50 Alkaline Phosphatase 90 Lactate Dehydrogenase 410 Total Creatine Kinase 53 Troponin I < 0.01 Total Protein 7.0 Albumin 3.8 Globulin 3.2 Albumin/Globulin Ratio 1.2 Lipase 488 H 11/23/16 11/23/16 11/24/16 13:00 19:00 06:42 WBC 7.9 5.0 D RBC 4.11 3.98 Hgb 10.2 L 9.7 L Hct 32.3 L 31.5 L MCV 78.6 L 79.1 L MCH 24.8 L 24.4 L MCHC 31.6 30.8 L RDW 18.0 H 17.9 H Plt Count 163 150 MPV 8.5 8.5 Sodium Potassium Chloride Carbon Dioxide Anion Gap BUN Creatinine Est GFR ( Amer) Est GFR (Non-Af Amer) Random Glucose Calcium Magnesium Total Bilirubin AST ALT Alkaline Phosphatase Lactate Dehydrogenase 415 Total Creatine Kinase 45 Troponin I < 0.01 Total Protein Albumin Globulin Albumin/Globulin Ratio Lipase 11/24/16 06:42 WBC RBC Hgb Hct MCV MCH MCHC RDW Plt Count MPV Sodium 135 Potassium 3.5 L Chloride 97 L Carbon Dioxide 28 Anion Gap 14 BUN 7 Creatinine 0.7 Est GFR ( Amer) > 60 Est GFR (Non-Af Amer) > 60 Random Glucose 95 Calcium 8.3 L Magnesium 1.5 L Total Bilirubin 0.8 AST 46 ALT 45 Alkaline Phosphatase 95 Lactate Dehydrogenase Total Creatine Kinase Troponin I Total Protein 6.7 Albumin 3.5 Globulin 3.2 Albumin/Globulin Ratio 1.1 Lipase Assessment & Plan - Assessment and Plan (Free Text) Assessment: This is 55 year old male with history of COPD, active EtOH abuse, h/o erosive esophagitis who presents with abdominal pain and recurrent coffee ground emesis in the setting of active alcohol abuse and medical non-compliance. 1. Erosive esophagitis 2. Alcohol Abuse Plan: -No signs of active bleeding / hemoglobin stable at baseline -Pt with known history of LA Grade D esophagitis -Start PPI BID -Diet as tolerated -Alcohol cessation counselling -Counselled on compliance to PPI -Elective colonoscopy outpatient for CRC screening -Recommend repeat EGD as an outpt for erosive esophagitis <Radha Burris MD - Last Filed: 11/24/16 12:29> Meds - Medications Medications: Current Medications Chlordiazepoxide (Librium) 25 mg PO Q8 [facility] PRN Reason: Protocol Last Admin: 11/24/16 05:48 Dose: 25 mg Folic Acid (Folic Acid) 1 mg PO DAILY [facility] Last Admin: 11/24/16 10:34 Dose: 1 mg Heparin Sodium (Porcine) (Heparin) 5,000 units SC Q8 [facility] PRN Reason: Protocol Last Admin: 11/24/16 05:48 Dose: 5,000 units Lorazepam (Ativan) 1 mg IVP Q2H PRN; Protocol PRN Reason: For alcohol withdrawal Last Admin: 11/24/16 10:34 Dose: 1 mg Multivitamins/Vitamin C (Multi-Delyn Liquid) 15 ml PO 0800 [facility] Last Admin: 11/24/16 08:20 Dose: 15 ml Ondansetron HCl (Zofran Inj) 4 mg IVP Q4H PRN PRN Reason: Nausea/Vomiting Last Admin: 11/24/16 10:34 Dose: 4 mg Pantoprazole Sodium (Protonix Ec Tab) 40 mg PO 0600,1600 [facility] Thiamine HCl (Vitamin B1 Tab) 100 mg PO DAILY [facility] Last Admin: 11/24/16 10:34 Dose: 100 mg Results - Vital Signs Recent Vital Signs: Last Vital Signs Temp 98.8 F 11/24/16 11:58 Pulse 78 11/24/16 11:58 Resp 18 11/24/16 11:58 BP 147/93 H 11/24/16 11:58 Pulse Ox 95 11/24/16 10:00 - Labs Result Diagrams: 11/24/16 06:42 11/24/16 06:42 Labs: Laboratory Results - last 24 hr 11/23/16 11/23/16 11/23/16 06:00 13:00 13:00 WBC 7.9 RBC 4.11 Hgb 10.2 L Hct 32.3 L MCV 78.6 L MCH 24.8 L MCHC 31.6 RDW 18.0 H Plt Count 163 MPV 8.5 Sodium Potassium Chloride Carbon Dioxide Anion Gap BUN Creatinine Est GFR ( Amer) Est GFR (Non-Af Amer) Random Glucose Calcium Magnesium Total Bilirubin AST ALT Alkaline Phosphatase Lactate Dehydrogenase 410 Total Creatine Kinase 53 Troponin I < 0.01 Total Protein Albumin Globulin Albumin/Globulin Ratio Lipase 488 H 11/23/16 11/24/16 11/24/16 19:00 06:42 06:42 WBC 5.0 D RBC 3.98 Hgb 9.7 L Hct 31.5 L MCV 79.1 L MCH 24.4 L MCHC 30.8 L RDW 17.9 H Plt Count 150 MPV 8.5 Sodium 135 Potassium 3.5 L Chloride 97 L Carbon Dioxide 28 Anion Gap 14 BUN 7 Creatinine 0.7 Est GFR ( Amer) > 60 Est GFR (Non-Af Amer) > 60 Random Glucose 95 Calcium 8.3 L Magnesium 1.5 L Total Bilirubin 0.8 AST 46 ALT 45 Alkaline Phosphatase 95 Lactate Dehydrogenase 415 Total Creatine Kinase 45 Troponin I < 0.01 Total Protein 6.7 Albumin 3.5 Globulin 3.2 Albumin/Globulin Ratio 1.1 Lipase Attending/Attestation - Attestation I have personally seen and examined this patient.: Yes I have fully participated in the care of the patient.: Yes I have reviewed all pertinent clinical information: Yes Notes (Text): 11/24/16 12:27 I have seen and examined patient with GI fellow. This is a 55 yr old M with alcohol abuse and dependance admitted multiple times with same ongoing issues of nausea, vomiting. No recurrent vomiting since arrival to hospital. He denies abdominal pain, diarrhea, fever/chills. Tolerating PO liquids without difficulty. Review of vitals from today are normal. Last EGD in 05/10 with grade D esophagitis, H pylori negative. Not on PPI consistently. Hct stable since admission. No s/s of overt GI bleeding. Will advance diet as tolerated. - No ongoing GI issues, recommend outpatient GI follow up and ETOH cessation counseling. Will sign off case, please reconsult as necessary, thank you.
[2016-11-24] MEDS ORDERED: Magnesium Sulfate 2 GM in Sodium Chloride 0.9% 100 ML IVPB ONE (10:07)
[2016-11-24] MEDS ORDERED: Potassium Chloride 20 mEq ER Tab PO STA (10:08)
--- NOTE | 2016-11-24 13:05 | CP.PCM.PN ---
<Juan nAtonio Emmanuel - Last Filed: 11/24/16 14:14> Subjective - Date & Time of Evaluation Date of Evaluation: 11/24/16 Time of Evaluation: 07:00 - Subjective Subjective: Juan Antonio Emmanuel DO Senior Mechanical Technician Patient was seen and examined bedside. Patient stated he was feeling much better. Objective - Vital Signs/Intake and Output Vital Signs (last 24 hours): Temp Pulse Resp BP Pulse Ox 98.8 F 78 18 147/93 H 95 11/24/16 11:58 11/24/16 11:58 11/24/16 11:58 11/24/16 11:58 11/24/16 10:00 Intake and Output: 11/24/16 11/24/16 06:59 18:59 Intake Total 780 Output Total 700 Balance 80 - Medications Medications: Current Medications Chlordiazepoxide (Librium) 25 mg PO Q8 [facility] PRN Reason: Protocol Last Admin: 11/24/16 05:48 Dose: 25 mg Folic Acid (Folic Acid) 1 mg PO DAILY [facility] Last Admin: 11/24/16 10:34 Dose: 1 mg Heparin Sodium (Porcine) (Heparin) 5,000 units SC Q8 [facility] PRN Reason: Protocol Last Admin: 11/24/16 05:48 Dose: 5,000 units Lorazepam (Ativan) 1 mg IVP Q2H PRN; Protocol PRN Reason: For alcohol withdrawal Last Admin: 11/24/16 10:34 Dose: 1 mg Multivitamins/Vitamin C (Multi-Delyn Liquid) 15 ml PO 0800 [facility] Last Admin: 11/24/16 08:20 Dose: 15 ml Ondansetron HCl (Zofran Inj) 4 mg IVP Q4H PRN PRN Reason: Nausea/Vomiting Last Admin: 11/24/16 10:34 Dose: 4 mg Pantoprazole Sodium (Protonix Ec Tab) 40 mg PO 0600,1600 [facility] Thiamine HCl (Vitamin B1 Tab) 100 mg PO DAILY [facility] Last Admin: 11/24/16 10:34 Dose: 100 mg - Labs Labs: 11/24/16 06:42 11/24/16 06:42 PT 12.4 Seconds (9.9-11.8) H 11/22/16 22:20 INR 1.15 (0.93-1.08) H 11/22/16 22:20 APTT 30.0 Seconds (23.7-30.8) 11/22/16 22:20 - Head Exam Head Exam: ATRAUMATIC, NORMAL INSPECTION - Eye Exam Eye Exam: EOMI, Normal appearance Pupil Exam: PERRL - Neck Exam Neck Exam: absent: Lymphadenopathy, Tenderness - Respiratory Exam Respiratory Exam: NORMAL BREATHING PATTERN. absent: Rales, Rhonchi, Wheezes - Cardiovascular Exam Cardiovascular Exam: +S1, +S2 - GI/Abdominal Exam GI & Abdominal Exam: Normal Bowel Sounds - Neurological Exam Neurological Exam: Oriented x3 Assessment and Plan - Assessment and Plan (Free Text) Assessment: 55 year old male with history of COPD, active EtOH abuse, h/o erosive esophagitis who presented with abdominal pain and recurrent coffee ground emesis in the setting of active alcohol abuse and medical non-compliance. Plan: 1. Hemoptysis, r/o GI Bleed: - GI was consulted - No signs of active bleeding - Start PPI BID - Diet advanced from NPO to normal - Alcohol cessation counselling - Counselled on compliance to PPI - GI recommends elective colonoscopy outpatient for CRC screening - GI recommends recommend repeat EGD as an outpatient for erosive esophagitis - Hgb is 9.7 - IVF @ 100 - Zofran prn nausea 2. Chest pain, r/o ACS: - trop neg x3, ekg neg for ST changes - D/C Telemetry 3. ETOH intoxication/ ETOH withdrawal: - Receiving folate, mvt, thiamine PO daily - on CIWA protocol, seizure and fall prec - Alcohol cessation counselling - Continue Librium - Physical Therapy consulted for balance and gait 4. Hx of COPD: - no home meds. cont to monitor resp status. <Panda Conner - Last Filed: 11/24/16 19:03> Objective - Vital Signs/Intake and Output Vital Signs (last 24 hours): Temp Pulse Resp BP Pulse Ox 97.7 F 88 20 131/84 94 L 11/24/16 16:00 11/24/16 16:00 11/24/16 16:00 11/24/16 16:00 11/24/16 16:00 Intake and Output: 11/24/16 11/24/16 06:59 18:59 Intake Total 780 500 Output Total 700 Balance 80 500 - Medications Medications: Current Medications Chlordiazepoxide (Librium) 25 mg PO Q8 [facility] PRN Reason: Protocol Last Admin: 11/24/16 15:00 Dose: 25 mg Folic Acid (Folic Acid) 1 mg PO DAILY [facility] Last Admin: 11/24/16 10:34 Dose: 1 mg Heparin Sodium (Porcine) (Heparin) 5,000 units SC Q8 [facility] PRN Reason: Protocol Last Admin: 11/24/16 15:00 Dose: 5,000 units Lorazepam (Ativan) 1 mg IVP Q2H PRN; Protocol PRN Reason: For alcohol withdrawal Last Admin: 11/24/16 18:36 Dose: 1 mg Multivitamins/Vitamin C (Multi-Delyn Liquid) 15 ml PO 0800 [facility] Last Admin: 11/24/16 08:20 Dose: 15 ml Ondansetron HCl (Zofran Inj) 4 mg IVP Q4H PRN PRN Reason: Nausea/Vomiting Last Admin: 11/24/16 14:52 Dose: 4 mg Pantoprazole Sodium (Protonix Ec Tab) 40 mg PO 0600,1600 [facility] Last Admin: 11/24/16 15:01 Dose: 40 mg Thiamine HCl (Vitamin B1 Tab) 100 mg PO DAILY [facility] Last Admin: 11/24/16 10:34 Dose: 100 mg - Labs Labs: 11/24/16 06:42 11/24/16 06:42 PT 12.4 Seconds (9.9-11.8) H 11/22/16 22:20 INR 1.15 (0.93-1.08) H 11/22/16 22:20 APTT 30.0 Seconds (23.7-30.8) 11/22/16 22:20 Attending/Attestation - Attestation I have personally seen and examined this patient.: Yes I have fully participated in the care of the patient.: Yes I have reviewed all pertinent clinical information, including history, physical exam and plan: Yes Notes (Text): 11/24/16 18:59 Patient seen and examined at bedside. No overnight issues reported. Vitals, labs and orders reviewed. Patient feels better and the abdominal symptoms are improving. Tolerating diet well. GI consult noted. Continue advancing diet. PT evaluation requested. Agree with the plan of care as outlined by the resident.
[2016-11-24] MEDS: Pantoprazole 40 mg EC Tab PO SCH (15:01)
[2016-11-25] MEDS: Pantoprazole 40 mg EC Tab PO SCH ×2 (06:30→17:33)
--- NOTE | 2016-11-25 07:23 | CARD ---
APPROVED REPORT EKG Measurement Heart [id number] <Conclusion> Normal sinus rhythm Normal ECG
[2016-11-25] MEDS: Multi Vitamins 15 mL UD Oral Solution PO SCH (09:25)
[2016-11-25] MEDS ORDERED: Albuterol-Ipratrop 3 mg / 0.5 (3 ml) UD IH PRN (10:20)
--- NOTE | 2016-11-25 12:22 | CP.PCM.PN ---
<Juan Antonio Emmanuel - Last Filed: 11/25/16 16:53> Subjective - Date & Time of Evaluation Date of Evaluation: 11/25/16 Time of Evaluation: 07:00 - Subjective Subjective: Juan Antonio Emmanuel DO Clinical Specialist Patient was seen and examined bedside. Patient stated he was feeling much better than he was yesterday. Objective - Vital Signs/Intake and Output Vital Signs (last 24 hours): Temp Pulse Resp BP Pulse Ox 97.5 F L 81 20 129/83 96 11/25/16 07:30 11/25/16 07:30 11/25/16 07:30 11/25/16 07:30 11/25/16 07:30 - Medications Medications: Current Medications Albuterol/Ipratropium (Duoneb 3 Mg/0.5 Mg (3 Ml) Ud) 3 ml IH Q2H PRN PRN Reason: Shortness of Breath Chlordiazepoxide (Librium) 10 mg PO Q8 [place] PRN Reason: Protocol Folic Acid (Folic Acid) 1 mg PO DAILY [facility] Last Admin: 11/25/16 09:25 Dose: 1 mg Heparin Sodium (Porcine) (Heparin) 5,000 units SC Q8 [facility] PRN Reason: Protocol Last Admin: 11/25/16 06:29 Dose: 5,000 units Lorazepam (Ativan) 1 mg IVP Q2H PRN; Protocol PRN Reason: For alcohol withdrawal Last Admin: 11/25/16 06:29 Dose: 1 mg Multivitamins/Vitamin C (Multi-Delyn Liquid) 15 ml PO 0800 [facility] Last Admin: 11/25/16 09:25 Dose: 15 ml Ondansetron HCl (Zofran Inj) 4 mg IVP Q4H PRN PRN Reason: Nausea/Vomiting Last Admin: 11/25/16 03:38 Dose: 4 mg Pantoprazole Sodium (Protonix Ec Tab) 40 mg PO 0600,1600 [facility] Last Admin: 11/25/16 06:30 Dose: 40 mg Thiamine HCl (Vitamin B1 Tab) 100 mg PO DAILY [facility] Last Admin: 11/25/16 09:25 Dose: 100 mg - Labs Labs: PT 12.4 Seconds (9.9-11.8) H 11/22/16 22:20 INR 1.15 (0.93-1.08) H 11/22/16 22:20 APTT 30.0 Seconds (23.7-30.8) 11/22/16 22:20 - Constitutional Appears: No Acute Distress, Unkempt - Head Exam Head Exam: ATRAUMATIC, NORMAL INSPECTION, NORMOCEPHALIC - Eye Exam Eye Exam: Normal appearance Pupil Exam: NORMAL ACCOMODATION, PERRL - Respiratory Exam Respiratory Exam: Clear to Ausculation Bilateral, NORMAL BREATHING PATTERN - Cardiovascular Exam Cardiovascular Exam: REGULAR RHYTHM, +S1, +S2. absent: RRR, Rubs - GI/Abdominal Exam GI & Abdominal Exam: Normal Bowel Sounds. absent: Guarding - Neurological Exam Neurological Exam: Awake, Oriented x3 - Psychiatric Exam Psychiatric exam: Normal Mood Assessment and Plan - Assessment and Plan (Free Text) Assessment: 55 year old male with history of COPD, active EtOH abuse, h/o erosive esophagitis who presented with abdominal pain and recurrent coffee ground emesis in the setting of active alcohol abuse and medical non-compliance. Plan: 1. Hemoptysis, r/o GI Bleed: - No signs of active bleeding - tolerating normal diet - Hgb is 10.3 - Zofran prn nausea 2. Chest pain, r/o ACS:resolved - trop neg x3, ekg neg for ST changes - cardiology was consulted and determined the pain was not cardiac related 3. ETOH intoxication/ ETOH withdrawal: - Receiving folate, mvi, thiamine PO daily - on CIWA protocol, seizure and fall precaution - Alcohol cessation counselling - decreased Librium to 10POq8 - continue Ativan 1mg IV q2H PRN - Physical Therapy consulted for balance and gait -continue to monitor vital signs and electrolytes 4. Hx of COPD: -patient not actively wheezing but complaining of mild SOB - started on Duoneb Q2 PRN 5. GI/DVT prophylaxis Patient seen, discussed and reviewed with attending. <Dale Narvaez - Last Filed: 11/25/16 17:03> Objective - Vital Signs/Intake and Output Vital Signs (last 24 hours): Temp Pulse Resp BP Pulse Ox 98.4 F 88 20 109/76 94 L 11/25/16 15:55 11/25/16 15:55 11/25/16 15:55 11/25/16 15:55 11/25/16 15:55 Intake and Output: 11/25/16 11/25/16 06:59 18:59 Intake Total 950 Balance 950 - Medications Medications: Current Medications Albuterol/Ipratropium (Duoneb 3 Mg/0.5 Mg (3 Ml) Ud) 3 ml IH Q2H PRN PRN Reason: Shortness of Breath Chlordiazepoxide (Librium) 10 mg PO Q8 [facility] PRN Reason: Protocol Last Admin: 11/25/16 13:16 Dose: 10 mg Folic Acid (Folic Acid) 1 mg PO DAILY [facility] Last Admin: 11/25/16 09:25 Dose: 1 mg Heparin Sodium (Porcine) (Heparin) 5,000 units SC Q8 [facility] PRN Reason: Protocol Last Admin: 11/25/16 13:16 Dose: 5,000 units Lorazepam (Ativan) 1 mg IVP Q2H PRN; Protocol PRN Reason: For alcohol withdrawal Last Admin: 11/25/16 06:29 Dose: 1 mg Multivitamins/Vitamin C (Multi-Delyn Liquid) 15 ml PO 0800 [facility] Last Admin: 11/25/16 09:25 Dose: 15 ml Ondansetron HCl (Zofran Inj) 4 mg IVP Q4H PRN PRN Reason: Nausea/Vomiting Last Admin: 11/25/16 03:38 Dose: 4 mg Pantoprazole Sodium (Protonix Ec Tab) 40 mg PO 0600,1600 [facility] Last Admin: 11/25/16 06:30 Dose: 40 mg Thiamine HCl (Vitamin B1 Tab) 100 mg PO DAILY [facility] Last Admin: 11/25/16 09:25 Dose: 100 mg - Labs Labs: 11/25/16 12:45 PT 12.4 Seconds (9.9-11.8) H 11/22/16 22:20 INR 1.15 (0.93-1.08) H 11/22/16 22:20 APTT 30.0 Seconds (23.7-30.8) 11/22/16 22:20 Attending/Attestation - Attestation I have personally seen and examined this patient.: Yes I have fully participated in the care of the patient.: Yes I have reviewed all pertinent clinical information, including history, physical exam and plan: Yes Notes (Text): 11/25/16 16:57 55 year old male with medical history of COPD, alcohol abuse, and esophagitis who presented with complaint of chest pain, abdominal pain, coffee ground emesis and alcohol intoxication. Serial cardiac enzymes were negative and ACS was ruled out. Cardiology evaluation was appreciated. GI evaluation was appreciated as well; recommended outpatient GI follow up. Continue with protonix. Continue with diet as tolerated. He is also on tapering librium and ativan for alcohol withdrawal. Continue with multivitamin, folic acid and thiamine. He was counselled on alcohol abstinence on multiple occasions, unfortunately he fails to comply. PT evaluation was requested as well. Dale Narvaez MD Hospitalist.
[2016-11-25 12:53] LABS: HEMATOCRIT 32.8 % (42.0-52.0); MEAN CELL VOLUME 79.8 fl (80.0-105.0); MEAN CORPUSCULAR HEMOGLOBIN 25.1 pg (25.0-35.0); MEAN CORPUSCULAR HGB CONC 31.4 g/dl (31.0-37.0); MEAN PLATELET VOLUME 8.5 fl (7.0-11.0); RED CELL DISTRIBUTION WIDTH 17.4 % (11.5-14.5); WHITE BLOOD COUNT 4.6 10^3/ul (4.5-11.0)
[2016-11-26] MEDS: Pantoprazole 40 mg EC Tab PO SCH ×2 (06:20→17:42)
[2016-11-26 07:49] LABS: BLOOD UREA NITROGEN 7 mg/dL (7-21); CALCIUM 9.2 mg/dL (8.4-10.5); CARBON DIOXIDE 29 mmol/L (21-33); CHLORIDE 95 mmol/L (98-107); GFR AFRICAN-AMERICAN > 60; GLUCOSE,RANDOM 100 mg/dL (70-110); POTASSIUM 4.1 mmol/L (3.6-5.0); SODIUM 135 mmol/L (132-148)
[2016-11-26] MEDS: Multi Vitamins 15 mL UD Oral Solution PO SCH (09:03)
[2016-11-26 12:34] LABS: HEMATOCRIT 34.7 % (42.0-52.0); MEAN CELL VOLUME 80.5 fl (80.0-105.0); MEAN CORPUSCULAR HEMOGLOBIN 24.8 pg (25.0-35.0); MEAN CORPUSCULAR HGB CONC 30.8 g/dl (31.0-37.0); MEAN PLATELET VOLUME 9.4 fl (7.0-11.0); RED CELL DISTRIBUTION WIDTH 17.7 % (11.5-14.5); WHITE BLOOD COUNT 6.7 10^3/ul (4.5-11.0)
--- NOTE | 2016-11-26 14:58 | CP.PCM.DIS ---
<Juan Antonio Emmanuel - Last Filed: 11/28/16 14:26> Provider - Provider Date of Admission: 11/25/16 10:18 Attending physician: Dale Narvaez MD Primary care physician: Chuy Desir MD Consults: Cardiology Gastroenterology Time Spent in preparation of Discharge (in minutes): 48 Diagnosis - Discharge Diagnosis (1) Alcohol intoxication Status: Resolved (2) Withdrawal symptoms, alcohol Status: Resolved (3) Erosive esophagitis Status: Chronic Priority: High (4) HTN (hypertension) Status: Chronic (5) Hematemesis Status: Resolved Priority: High Hospital Course - Lab Results Lab Results: Most Recent Lab Values WBC 6.7 10^3/ul (4.5-11.0) D 11/26/16 11:30 RBC 4.31 10^6/uL (3.5-6.1) 11/26/16 11:30 Hgb 10.7 g/dL (14.0-18.0) L 11/26/16 11:30 Hct 34.7 % (42.0-52.0) L 11/26/16 11:30 MCV 80.5 fl (80.0-105.0) 11/26/16 11:30 MCH 24.8 pg (25.0-35.0) L 11/26/16 11:30 MCHC 30.8 g/dl (31.0-37.0) L 11/26/16 11:30 RDW 17.7 % (11.5-14.5) H 11/26/16 11:30 Plt Count 209 10^3/uL (120.0-450.0) 11/26/16 11:30 MPV 9.4 fl (7.0-11.0) 11/26/16 11:30 Gran % 64.6 % (50.0-68.0) 11/23/16 07:00 Lymph % (Auto) 21.5 % (22.0-35.0) L 11/23/16 07:00 [place] % (Auto) 12.8 % (1.0-6.0) H 11/23/16 07:00 Eos % (Auto) 0.8 % (1.5-5.0) L 11/23/16 07:00 Baso % (Auto) 0.3 % (0.0-3.0) 09/02/17 07:00 Gran # 4.30 (1.4-6.5) 11/23/16 07:00 Lymph # 1.4 (1.2-3.4) 11/23/16 07:00 [place] # 0.9 (0.1-0.6) H 11/23/16 07:00 Eos # 0.1 (0.0-0.7) 11/23/16 07:00 Baso # 0.02 K/mm3 (0.0-2.0) 11/23/16 07:00 PT 12.4 Seconds (9.9-11.8) H 11/22/16 22:20 INR 1.15 (0.93-1.08) H 11/22/16 22:20 APTT 30.0 Seconds (23.7-30.8) 11/22/16 22:20 Sodium 135 mmol/L (132-148) 11/26/16 06:55 Potassium 4.1 mmol/L (3.6-5.0) 11/26/16 06:55 Chloride 95 mmol/L (98-107) L 11/26/16 06:55 Carbon Dioxide 29 mmol/L (21-33) 11/26/16 06:55 Anion Gap 15 (10-20) 11/26/16 06:55 BUN 7 mg/dL (7-21) 11/26/16 06:55 Creatinine 0.8 mg/dL (0.5-1.4) 11/26/16 06:55 Est GFR ( Amer) > 60 11/26/16 06:55 Est GFR (Non-Af Amer) > 60 11/26/16 06:55 Random Glucose 100 mg/dL (70-110) 11/26/16 06:55 Hemoglobin A1c 5.2 % (4.2-6.5) 11/24/16 06:42 Calcium 9.2 mg/dL (8.4-10.5) 11/26/16 06:55 Magnesium 1.5 mg/dL (1.7-2.2) L 11/24/16 06:42 Total Bilirubin 0.8 mg/dL (0.2-1.3) 11/24/16 06:42 AST 46 U/L (17-59) 11/24/16 06:42 ALT 45 U/L (7-56) 11/24/16 06:42 Alkaline Phosphatase 95 U/L (38-126) 11/24/16 06:42 Lactate Dehydrogenase 415 U/L (333-699) 11/23/16 19:00 Total Creatine Kinase 45 U/L (35-230) 11/23/16 19:00 Troponin I < 0.01 ng/mL 11/23/16 19:00 Total Protein 6.7 g/dL (5.8-8.3) 11/24/16 06:42 Albumin 3.5 g/dL (3.0-4.8) 11/24/16 06:42 Globulin 3.2 gm/dL 11/24/16 06:42 Albumin/Globulin Ratio 1.1 (1.1-1.8) 11/24/16 06:42 Lipase 488 U/L (23-300) H 11/23/16 06:00 Urine Color Yellow (YELLOW) 11/23/16 00:05 Urine Appearance Clear (CLEAR) 11/23/16 00:05 Urine pH 6.0 (4.7-8.0) 11/23/16 00:05 Ur Specific [place] <= 1.005 (1.005-1.035) 11/23/16 00:05 Urine Protein Negative mg/dL (<30 mg/dL) 11/23/16 00:05 Urine Glucose (UA) Negative mg/dL (NEGATIVE) 11/23/16 00:05 Urine Ketones Negative mg/dL (NEGATIVE) 11/23/16 00:05 Urine Blood Negative (NEGATIVE) 11/23/16 00:05 Urine Nitrate Negative (NEGATIVE) 11/23/16 00:05 Urine Bilirubin Negative (NEGATIVE) 11/23/16 00:05 Urine Urobilinogen 0.2 E.U./dL (<1 E.U./dL) 11/23/16 00:05 Ur Leukocyte Esterase Negative Vanda/uL (NEGATIVE) 11/23/16 00:05 Alcohol, Quantitative 289 mg/dL (0-10) H 11/22/16 22:20 Blood Type O POSITIVE 11/22/16 22:20 Antibody Screen Negative 11/22/16 22:20 BBK History Checked Patient has bt 11/22/16 22:20 - Hospital Course Hospital Course: This discharge summary for 11/26/16 55 M with PMH of COPD, alcohol abuse, and esophagitis, HTN, presented to ED with complaint of chest pain, abdominal pain, coffee ground emesis, and alcohol intoxication. Patient denied melena, headache, blurry vision, cardiac symptoms, leg swelling. In the ED, significant labs and imaging were: Sodium 127, Potassium 3, Cl 84, mildly elevated AST of 70, ETOH level of 289, CXR normal, UA negative for blood or infection. After admission, cardiology was consulted and stated the chest pain was likely due to gastroesophageal irritation from vomiting and noncardiac in nature. EKG was normal and serial troponins also came back negative. GI was also consulted and stated there were no ongoing issues or avtive bleeding and recommened outpatient GI follow up, along with ETOH cessation counseling. CIWA protocol was initiated. Physical therapy was consulted for balance and gait. Patient was tapered off of Librium and Ativan and his diet was advanced as tolerated as he progressed through alcohol withdrawal. - Date & Time of H&P Date of H&P: 11/24/16 Time of H&P: 08:30 Discharge Exam - Head Exam Head Exam: ATRAUMATIC, NORMAL INSPECTION, NORMOCEPHALIC - Eye Exam Eye Exam: PERRL Pupil Exam: NORMAL ACCOMODATION - Respiratory Exam Respiratory Exam: NORMAL BREATHING PATTERN, UNREMARKABLE - Cardiovascular Exam Cardiovascular Exam: REGULAR RHYTHM - GI/Abdominal Exam GI & Abdominal Exam: Normal Bowel Sounds - Neurological Exam Neurological exam: Alert, Oriented x3 Discharge Plan - Discharge Medications Prescriptions: Pantoprazole [Protonix EC Tab] 40 mg PO 0600,1600 #60 ect - Follow Up Plan Condition: GUARDED Disposition: HOME/ ROUTINE Instructions: Gastrointestinal Bleeding (DC), Alcohol Intoxication (DC), Abuse of Alcohol (DC), Anemia (DC), Back Pain (GEN) Additional Instructions: Follow up with primary care provider. See Gastroenterology as an outpatient, Referrals: Chuy Desir MD [Primary Care Provider] - <Dale Narvaez - Last Filed: 11/28/16 15:03> Provider - Provider Date of Admission: 11/25/16 10:18 Attending physician: Dale Narvaez MD Primary care physician: Chuy Desir MD Hospital Course - Lab Results Lab Results: Most Recent Lab Values WBC 6.7 10^3/ul (4.5-11.0) D 11/26/16 11:30 RBC 4.31 10^6/uL (3.5-6.1) 11/26/16 11:30 Hgb 10.7 g/dL (14.0-18.0) L 11/26/16 11:30 Hct 34.7 % (42.0-52.0) L 11/26/16 11:30 MCV 80.5 fl (80.0-105.0) 11/26/16 11:30 MCH 24.8 pg (25.0-35.0) L 11/26/16 11:30 MCHC 30.8 g/dl (31.0-37.0) L 11/26/16 11:30 RDW 17.7 % (11.5-14.5) H 11/26/16 11:30 Plt Count 209 10^3/uL (120.0-450.0) 11/26/16 11:30 MPV 9.4 fl (7.0-11.0) 11/26/16 11:30 Gran % 64.6 % (50.0-68.0) 11/23/16 07:00 Lymph % (Auto) 21.5 % (22.0-35.0) L 11/23/16 07:00 [place] % (Auto) 12.8 % (1.0-6.0) H 11/23/16 07:00 Eos % (Auto) 0.8 % (1.5-5.0) L 11/23/16 07:00 Baso % (Auto) 0.3 % (0.0-3.0) 11/23/16 07:00 Gran # 4.30 (1.4-6.5) 11/23/16 07:00 Lymph # 1.4 (1.2-3.4) 11/23/16 07:00 [place] # 0.9 (0.1-0.6) H 11/23/16 07:00 Eos # 0.1 (0.0-0.7) 11/23/16 07:00 Baso # 0.02 K/mm3 (0.0-2.0) 11/23/16 07:00 PT 12.4 Seconds (9.9-11.8) H 11/22/16 22:20 INR 1.15 (0.93-1.08) H 11/22/16 22:20 APTT 30.0 Seconds (23.7-30.8) 11/22/16 22:20 Sodium 135 mmol/L (132-148) 11/26/16 06:55 Potassium 4.1 mmol/L (3.6-5.0) 11/26/16 06:55 Chloride 95 mmol/L (98-107) L 11/26/16 06:55 Carbon Dioxide 29 mmol/L (21-33) 11/26/16 06:55 Anion Gap 15 (10-20) 11/26/16 06:55 BUN 7 mg/dL (7-21) 11/26/16 06:55 Creatinine 0.8 mg/dL (0.5-1.4) 11/26/16 06:55 Est GFR ( Amer) > 60 11/26/16 06:55 Est GFR (Non-Af Amer) > 60 11/26/16 06:55 Random Glucose 100 mg/dL (70-110) 11/26/16 06:55 Hemoglobin A1c 5.2 % (4.2-6.5) 11/24/16 06:42 Calcium 9.2 mg/dL (8.4-10.5) 11/26/16 06:55 Magnesium 1.5 mg/dL (1.7-2.2) L 11/24/16 06:42 Total Bilirubin 0.8 mg/dL (0.2-1.3) 11/24/16 06:42 AST 46 U/L (17-59) 11/24/16 06:42 ALT 45 U/L (7-56) 11/24/16 06:42 Alkaline Phosphatase 95 U/L (38-126) 11/24/16 06:42 Lactate Dehydrogenase 415 U/L (333-699) 11/23/16 19:00 Total Creatine Kinase 45 U/L (35-230) 11/23/16 19:00 Troponin I < 0.01 ng/mL 11/23/16 19:00 Total Protein 6.7 g/dL (5.8-8.3) 11/24/16 06:42 Albumin 3.5 g/dL (3.0-4.8) 11/24/16 06:42 Globulin 3.2 gm/dL 11/24/16 06:42 Albumin/Globulin Ratio 1.1 (1.1-1.8) 11/24/16 06:42 Lipase 488 U/L (23-300) H 11/23/16 06:00 Urine Color Yellow (YELLOW) 11/23/16 00:05 Urine Appearance Clear (CLEAR) 11/23/16 00:05 Urine pH 6.0 (4.7-8.0) 11/23/16 00:05 Ur Specific [place] <= 1.005 (1.005-1.035) 11/23/16 00:05 Urine Protein Negative mg/dL (<30 mg/dL) 11/23/16 00:05 Urine Glucose (UA) Negative mg/dL (NEGATIVE) 11/23/16 00:05 Urine Ketones Negative mg/dL (NEGATIVE) 11/23/16 00:05 Urine Blood Negative (NEGATIVE) 11/23/16 00:05 Urine Nitrate Negative (NEGATIVE) 11/23/16 00:05 Urine Bilirubin Negative (NEGATIVE) 11/23/16 00:05 Urine Urobilinogen 0.2 E.U./dL (<1 E.U./dL) 11/23/16 00:05 Ur Leukocyte Esterase Negative Vanda/uL (NEGATIVE) 11/23/16 00:05 Alcohol, Quantitative 289 mg/dL (0-10) H 11/22/16 22:20 Blood Type O POSITIVE 11/22/16 22:20 Antibody Screen Negative 11/22/16 22:20 BBK History Checked Patient has bt 11/22/16 22:20 Attending/Attestation - Attestation I have personally seen and examined this patient.: Yes I have fully participated in the care of the patient.: Yes I have reviewed all pertinent clinical information, including history, physical exam and plan: Yes Notes (Text): 11/28/16 15:02 55 year old male with medical history of COPD, alcohol abuse, and esophagitis who presented with complaint of chest pain, abdominal pain, coffee ground emesis and alcohol intoxication. Serial cardiac enzymes were negative and ACS was ruled out. He was seen and evaluated by cardiology as well as GI. He is on protonix. His symptoms improved and his diet was advanced which he tolerated. He was on tapering librium and ativan for alcohol withdrawal. He was on multivitamin, folic acid and thiamine. He was counselled on alcohol abstinence on multiple occasions, unfortunately he fails to comply. He was ambulating in hallways without complaints. Patient is discharged home to follow up with his pmd. Counselled on alcohol abstinence. Follow up with GI. Overall prognosis is poor if he continues to drink. Dale Narvaez MD Hospitalist.
[2016-11-26 16:13] VITALS: BP 98/68; PULSE 71; RESP 18; TEMP 98.4; O2SAT 99
== END 2016-11-26 19:24 | disposition home or self-care (01) | DRG 204 ==
LOC: ED 21:32 → ERH 23:20 → 2RNO 11-23 00:50 → 5RNO 11-24 14:29 → OBSVTOIN 11-25 10:18
PROVIDERS: ADMIT Internal Medicine; ATTEND Internal Medicine
PROC: HZ2ZZZZ Detoxification Services for Substance Abuse Treatment (ICD-10-PCS; principal; 2016-11-23)
DX: K85.20 Alcohol induced acute pancreatitis without necrosis or infection (principal); R04.2 Hemoptysis; I10 Essential (primary) hypertension; E83.42 Hypomagnesemia; D50.9 Iron deficiency anemia, unspecified; F17.210 Nicotine dependence, cigarettes, uncomplicated; F10.239 Alcohol dependence with withdrawal, unspecified; J44.9 Chronic obstructive pulmonary disease, unspecified; E87.6 Hypokalemia; K86.0 Alcohol-induced chronic pancreatitis; K21.0 Gastro-esophageal reflux disease with esophagitis; K29.70 Gastritis, unspecified, without bleeding; R07.9 Chest pain, unspecified; Y90.8 Blood alcohol level of 240 mg/100 ml or more; Z91.19 Patient's noncompliance with other medical treatment and regimen; W57.XXXA Bitten or stung by nonvenomous insect and other nonvenomous arthropods, initial encounter; Z88.0 Allergy status to penicillin

== ENCOUNTER 2016-12-06 23:14 | Observation (INO) | payer MEDICAID ==
[2016-12-06 23:14] VITALS: BMI 29.3
[2016-12-06 23:35] VITALS: RESP 18; TEMP 97.7
--- NOTE | 2016-12-07 00:28 | ED PDOC ---
Arrival/HPI - General Time Seen by Provider: 12/06/16 23:29 Historian: Patient - History of Present Illness Narrative History of Present Illness (Text): 12/07/16 00:20 Travis Royal is a 55 year old male, whose past medical history includes chronic alcohol abuse, who presents to the emergency department brought in by EMS for alcohol intoxication tonight. Patient admits to drinking alcohol tonight. Patient is well known to ER staff and has been seen on multiple occasions for similar complaints. The patient denies any fever, chills, chest pain, shortness of breath, abdominal pain, nausea, vomiting, diarrhea, urinary symptoms, back pain, neck pain, headache, dizziness, or any other complaints. Time/Duration: Other (tonight) Symptom Onset: Gradual Symptom Course: Unchanged Activities at Onset: Light Past Medical History - Provider Review Nursing Documentation Reviewed: Yes - Past History Past History: No Previous - Infectious Disease Hx of Infectious Diseases: None - Tetanus Immunization Tetanus Immunization: Unknown - Reproductive Currently : No - Cardiac Hx Cardiac Disorders: Yes Hx Hypertension: Yes (DENIES) - Pulmonary Hx Chronic Obstructive Pulmonary Disease (COPD): Yes - Neurological HX Cerebrovascular Accident: No - HEENT Hx HEENT Disorder: No - Renal Hx Renal Disorder: No - Endocrine/Metabolic Hx Diabetes Mellitus Type 2: Yes - Hematological/Oncological Hx Blood Disorders: Yes - Integumentary Hx Dermatological Disorder: Yes Other/Comment: GENERALIZED MULTIPLE REDDENED RASH TO WHOLE FACE AND CHEST,LOWER PART OF ABDOMINAL AREA. ALSO HAS GENERALIZED INSECT BITES ALL OVER ARMS AND LEGS AND BACK AND BODY. TATTOOS ALL OVER ARMS BACK AND LEGS. - Musculoskeletal/Rheumatological Hx Musculoskeletal Disorders: Yes Hx Falls: Yes - Gastrointestinal Hx Gastrointestinal Disorders: Yes (GI BLEED) Hx Gall Bladder Disease: Yes Hx Pancreatitis: Yes Other/Comment: X2 HERNIA REPAIR acid reflux - Genitourinary/Gynecological Hx Genitourinary Disorders: Yes (ORCHIECTOMY) - Psychiatric Hx Psychophysiologic Disorder: Yes Hx Anxiety: Yes Hx Depression: Yes Hx Substance Use: No (DENIES) - Surgical History Hx Cardiac Catheterization: No Hx Coronary Stent: No Hx Musculoskeletal Surgery: Yes (Left hand surgery DENIES) - Anesthesia Hx Anesthesia: Yes Hx Anesthesia Reactions: No Hx Malignant Hyperthermia: No - Suicidal Assessment Feels Threatened In Home Enviroment: No Family/Social History - Physician Review Nursing Documentation Reviewed: Yes Family/Social History: Unknown Family HX Smoking Status: Current Some Days Smoker Hx Alcohol Use: Yes (DRINKS 2 6 PK/D.DRANK SINCE HE WAS 16 YRS OLD.H/O OF PARENTS DRINKING.) Amount per day: 10 Hx Substance Use: No (DENIES) Hx Substance Use Treatment: No Allergies/Home Meds Allergies/Adverse Reactions: Allergies Penicillins Allergy (Verified 10/22/16 00:38) RASH Home Medications: Home Meds Medication Instructions Recorded Confirmed No Known Home Med 12/07/16 12/07/16 Review of Systems - Physician Review All systems were reviewed & negative as marked: Yes - Review of Systems Constitutional: Normal. absent: Fevers Eyes: Normal ENT: Normal Respiratory: Normal. absent: SOB, Cough Cardiovascular: Normal. absent: Chest Pain Gastrointestinal: Normal. absent: Abdominal Pain, Diarrhea, Nausea, Vomiting Genitourinary Male: Normal. absent: Dysuria, Frequency, Hematuria, Urinary Output Changes Musculoskeletal: Normal. absent: Back Pain, Neck Pain Skin: Normal. absent: Rash Neurological: Normal. absent: Headache, Dizziness Endocrine: Normal Hemo/Lymphatic: Normal Psychiatric: Other (+alcohol abuse) Physical Exam Vital Signs Reviewed: Yes Vital Signs Temp Pulse Resp BP Pulse Ox 12/07/16 05:14 89 18 135/89 95 12/07/16 03:14 88 18 130/88 96 12/07/16 01:14 90 18 131/90 95 12/06/16 23:32 97.7 F 99 H 18 131/97 H 94 L Temperature: Afebrile Blood Pressure: Normal Pulse: Regular Respiratory Rate: Normal Appearance: Positive for: Well-Appearing, Non-Toxic, Comfortable Pain Distress: None Mental Status: Positive for: Alert and Oriented X 3 - Systems Exam Head: Present: Atraumatic, Normocephalic Pupils: Present: PERRL Extroacular Muscles: Present: EOMI Conjunctiva: Present: Normal Mouth: Present: Moist Mucous Membranes Neck: Present: Normal Range of Motion Respiratory/Chest: Present: Clear to Auscultation, Good Air Exchange. No: Respiratory Distress, Accessory Muscle Use Cardiovascular: Present: Regular Rate and Rhythm, Normal S1, S2. No: Murmurs Abdomen: Present: Normal Bowel Sounds. No: Tenderness, Distention, Peritoneal Signs Back: Present: Normal Inspection Upper Extremity: Present: Normal Inspection. No: Cyanosis, Edema Lower Extremity: Present: Normal Inspection. No: Edema Neurological: Present: GCS=15, CN II-XII Intact, Speech Normal Skin: Present: Warm, Dry, Normal Color. No: Rashes Psychiatric: Present: Alert, Oriented x 3, Normal Insight, Normal Concentration Medical Decision Making ED Course and Treatment: 12/07/16 00:20 Impression: 56 year old male brought in for alcohol intoxication tonight. Differential Diagnosis included but are not limited to: alcohol intoxication Plan: -- Reassess and disposition Prior Visits: Notes and results from previous visits were reviewed. Pt well known to ER and has been seen on multiple occasions for similar complaints. Progress Notes: ED OBSERVATION Discharge: Yes Date of observation admission: 12/07/16 Time of observation admission: 00:20 - Observation admission statement Patient is being placed in observation because:: alcohol intoxication - Goals of Observation Goals of observation are:: sobriety, observe for signs of withdrawal - Progress Note Progress Note: 12/07/16 00:20 Pt brought in for alcohol intoxication. Will observe until morning pending sobriety. 12/07/16 02:20 Pt resting comfortably, no new complaints. 12/07/16 04:20 Pt sleeping currently, in no acute distress. 12/07/16 06:13 Pt resting comfortably, no new complaints. 12/07/16 06:29 Pt awake, alert, ambulating with steady gait. In no acute distress. Pt stable for d/c. - Scribe Statement The provider has reviewed the documentation as recorded by the Mary Kaiser Provider Scribe Attestation: All medical record entries made by the Rahibalvraez were at my direction and personally dictated by me. I have reviewed the chart and agree that the record accurately reflects my personal performance of the history, physical exam, medical decision making, and the department course for this patient. I have also personally directed, reviewed, and agree with the discharge instructions and disposition. Disposition/Present on Arrival - Present on Arrival Any Indicators Present on Arrival: No History of DVT/PE: No History of Uncontrolled Diabetes: No Urinary Catheter: No History Surgical Site Infection Following: None - Disposition Have Diagnosis and Disposition been Completed?: Yes Diagnosis: Alcohol abuse Disposition: HOME/ ROUTINE Disposition Time: 06:31 Patient Plan: Discharge Condition: STABLE
[2016-12-07 06:54] VITALS: BP 135/89; PULSE 89; O2SAT 95
== END 2016-12-07 06:29 | disposition home or self-care (01) ==
LOC: ED 23:14 → EROBSV 12-07 00:20
PROVIDERS: ADMIT Emergency Medicine; ATTEND Emergency Medicine
DX: F10.129 Alcohol abuse with intoxication, unspecified (principal)
CPT/HCPCS: 99284; G0378

== ENCOUNTER 2016-12-10 00:07 | Observation (INO) | payer MEDICAID ==
[2016-12-10 00:08] VITALS: BMI 29.3
[2016-12-10 00:13] VITALS: BP 128/76; TEMP 98.3
[2016-12-10] MEDS ORDERED: Permethrin 5% Cream(60 gm) TOP ONE (00:41)
--- NOTE | 2016-12-10 00:45 | ED PDOC ---
Arrival/HPI <Tommie Godfrey - Last Filed: 12/10/16 06:16> - General Historian: Patient, Parent <Ezequiel May - Last Filed: 12/12/16 09:29> - General Chief Complaint: Alcohol Ingestion Time Seen by Provider: 12/10/16 00:36 - History of Present Illness Narrative History of Present Illness (Text): 12/10/16 00:42 56 y/o male, FS 138, frequent visitor to this ER, psychiatric history including alcohol abuse, allergic to penicillin, c/o itching rash on the arms/leg and neck x 2 days with no change in soap/clothing/detergent. Pt. stated that he has been drinking tonight, here because he was found publicly intoxicated but walking with good posture. Pt. stated that he has itching rash on the arms/leg/ neck x 2 days as well, no fever or chills, no numbness or tingling, no other medical or psychological complaints. (Ezequiel May) Past Medical History - Provider Review Nursing Documentation Reviewed: Yes - Past History Past History: No Previous - Infectious Disease Hx of Infectious Diseases: None - Tetanus Immunization Tetanus Immunization: Unknown - Reproductive Currently : No - Cardiac Hx Cardiac Disorders: Yes Hx Hypertension: Yes (DENIES) - Pulmonary Hx Chronic Obstructive Pulmonary Disease (COPD): Yes - Neurological HX Cerebrovascular Accident: No - HEENT Hx HEENT Disorder: No - Renal Hx Renal Disorder: No - Endocrine/Metabolic Hx Diabetes Mellitus Type 2: Yes - Hematological/Oncological Hx Blood Disorders: Yes - Integumentary Hx Dermatological Disorder: Yes Other/Comment: GENERALIZED MULTIPLE REDDENED RASH TO WHOLE FACE AND CHEST,LOWER PART OF ABDOMINAL AREA. ALSO HAS GENERALIZED INSECT BITES ALL OVER ARMS AND LEGS AND BACK AND BODY. TATTOOS ALL OVER ARMS BACK AND LEGS. - Musculoskeletal/Rheumatological Hx Musculoskeletal Disorders: Yes Hx Falls: Yes - Gastrointestinal Hx Gastrointestinal Disorders: Yes (GI BLEED) Hx Gall Bladder Disease: Yes Hx Pancreatitis: Yes Other/Comment: X2 HERNIA REPAIR acid reflux - Genitourinary/Gynecological Hx Genitourinary Disorders: Yes (ORCHIECTOMY) - Psychiatric Hx Psychophysiologic Disorder: Yes Hx Anxiety: Yes Hx Depression: Yes Hx Substance Use: No (DENIES) - Surgical History Hx Cardiac Catheterization: No Hx Coronary Stent: No Hx Musculoskeletal Surgery: Yes (Left hand surgery DENIES) - Anesthesia Hx Anesthesia: Yes Hx Anesthesia Reactions: No Hx Malignant Hyperthermia: No - Suicidal Assessment Feels Threatened In Home Enviroment: No <Ezequiel May - Last Filed: 12/12/16 09:29> Family/Social History - Physician Review Nursing Documentation Reviewed: Yes Family/Social History: Unknown Family HX Smoking Status: Current Some Days Smoker Hx Alcohol Use: Yes (DRINKS 2 6 PK/D.DRANK SINCE HE WAS 16 YRS OLD.H/O OF PARENTS DRINKING.) Amount per day: 10 Hx Substance Use: No (DENIES) Hx Substance Use Treatment: No <Ezequiel May - Last Filed: 12/12/16 09:29> Allergies/Home Meds <Tommie Godfrey - Last Filed: 12/10/16 06:16> <Ezequiel May - Last Filed: 12/12/16 09:29> Allergies/Adverse Reactions: Allergies Penicillins Allergy (Verified 10/22/16 00:38) RASH Home Medications: Home Meds Medication Instructions Recorded Confirmed Pantoprazole Sodium [Protonix] 40 mg PO DAILY 12/10/16 12/12/16 Review of Systems - Review of Systems Constitutional: absent: Fatigue, Fevers Eyes: absent: Vision Changes ENT: absent: Hearing Changes Respiratory: absent: SOB, Cough Cardiovascular: absent: Chest Pain Gastrointestinal: absent: Abdominal Pain, Nausea, Vomiting Skin: Rash, Pruritis, Skin Lesions. absent: Laceration, Abscess, Ulcer, Cellulitis Neurological: absent: Headache, Dizziness <MayEzequiel Chou - Last Filed: 12/12/16 09:29> Physical Exam Vital Signs Reviewed: Yes Temperature: Afebrile Blood Pressure: Normal Pulse: Tachycardic Respiratory Rate: Normal Appearance: Positive for: Well-Appearing, Non-Toxic, Comfortable Pain Distress: None Mental Status: Positive for: Alert and Oriented X 3 - Systems Exam Head: Present: Atraumatic, Normocephalic Pupils: Present: PERRL Extroacular Muscles: Present: EOMI Conjunctiva: Present: Normal Ears: Present: NORMAL TM, Normal Canal. No: Erythema Mouth: Present: Moist Mucous Membranes Neck: Present: Normal Range of Motion Respiratory/Chest: Present: Clear to Auscultation, Good Air Exchange. No: Respiratory Distress, Accessory Muscle Use Cardiovascular: Present: Regular Rate and Rhythm, Normal S1, S2. No: Murmurs Abdomen: Present: Normal Bowel Sounds. No: Tenderness, Distention, Peritoneal Signs Back: Present: Normal Inspection Upper Extremity: Present: Normal Inspection. No: Cyanosis, Edema Lower Extremity: Present: Normal Inspection. No: Edema Neurological: Present: GCS=15, Speech Normal, Motor Func Grossly Intact, Memory Normal Skin: Present: Warm, Dry, Rashes (bilateral wrist/elbow/posterior neck/knees and ankle regions visible maculepapule rash with no central insect bite mejia, no streaking or ulcers. ), Normal Color Psychiatric: Present: Alert, Oriented x 3, Normal Insight, Normal Concentration <Ezequiel May - Last Filed: 12/12/16 09:29> Vital Signs Temp Pulse Resp BP Pulse Ox 12/10/16 02:48 80 17 128/76 98 12/10/16 00:52 88 18 100 12/10/16 00:13 98.3 F 104 H 18 128/76 96 Medical Decision Making Re-evaluation Time: 06:17 Reassessment Condition: Re-examined, Improved <Tommie Godfrey - Last Filed: 12/10/16 06:16> <Ezequiel May - Last Filed: 12/12/16 09:29> ED Course and Treatment: 12/10/16 00:48 -benadryl and decadron IM -Rash appears to be following a scabies pattern, permethrin ordered for the patient as topical. -Pt. will be placed as observation. (Ezequiel May) - Lab Interpretations Lab Results: Lab Results 12/10/16 01:13: POC Glucose (mg/dL) 138 H - Medication Orders Current Medication Orders: Discontinued Medications Dexamethasone (Decadron Inj) 8 mg IM STAT STA Stop: 12/10/16 00:41 Last Admin: 12/10/16 01:05 Dose: 8 mg IM Administration Charges Document 12/10/16 01:05 RD (Rec: 12/10/16 01:05 RD [facility] [id number]) Injection Site MAR Injection Site Left Deltoid Charges for Administration # of IM Administrations 1 Diphenhydramine HCl (Benadryl) 50 mg PO STAT STA Stop: 12/10/16 00:41 Last Admin: 12/10/16 01:05 Dose: 50 mg Permethrin (Permethrin 5% Cream) 60 gm TOP ONCE ONE Stop: 12/10/16 00:42 Last Admin: 12/10/16 01:05 Dose: 1 applic ED OBSERVATION Discharge: Yes <Tommie Godfrey - Last Filed: 12/10/16 06:16> Date of observation admission: 12/10/16 Time of observation admission: 02:00 <Ezequiel May - Last Filed: 12/12/16 09:29> - Observation admission statement Patient is being placed in observation because:: alcohol intoxication (Ezequiel May) - Goals of Observation Goals of observation are:: sober (Ezequiel May) - Progress Note Progress Note: 12/10/16 02:00 -benadryl/decadron/permethrin ordered -case discussed and sign out to the ER attending Dr. Godfrey as follow up and final dispo for the patient. (Ezequiel May) - PA / RESIDENTIAL DIRECT SUPPORT PROFESSIONAL / Resident Statement MD/DO has reviewed & agrees with the documentation as recorded. <Ezequiel May - Last Filed: 12/12/16 09:29> Disposition/Present on Arrival - Present on Arrival Any Indicators Present on Arrival: No - Disposition Have Diagnosis and Disposition been Completed?: Yes <Tommie Godfrey - Last Filed: 12/10/16 06:16> - Present on Arrival Any Indicators Present on Arrival: No History of DVT/PE: No History of Uncontrolled Diabetes: No Urinary Catheter: No History of Decub. Ulcer: No History Surgical Site Infection Following: None - Disposition Have Diagnosis and Disposition been Completed?: Yes Disposition Time: 09:29 <Ezequiel May - Last Filed: 12/12/16 09:29> - Disposition Diagnosis: Pruritic dermatitis, Alcohol intoxication Disposition: HOME/ ROUTINE Condition: GOOD
[2016-12-10 02:49] VITALS: PULSE 80; RESP 17; O2SAT 98
== END 2016-12-10 06:15 | disposition home or self-care (01) ==
LOC: ED 00:07 → EROBSV 01:20
PROVIDERS: ADMIT Emergency Medicine; ATTEND Emergency Medicine
DX: L30.9 Dermatitis, unspecified (principal); F10.129 Alcohol abuse with intoxication, unspecified; E11.9 Type 2 diabetes mellitus without complications
CPT/HCPCS: 82948; 96372; 99283; G0378; J1100

== ENCOUNTER 2016-12-12 01:08 | Observation (INO) | payer MEDICAID ==
[2016-12-12 01:08] VITALS: BMI 29.3
--- NOTE | 2016-12-12 02:06 | ED PDOC ---
Arrival/HPI - General Chief Complaint: Medical Clearance Time Seen by Provider: 12/12/16 01:25 Historian: Patient - History of Present Illness Narrative History of Present Illness (Text): 12/12/16 02:05 Travis Royal is a 56 year old male, whose past medical history includes chronic alcohol abuse, who presents to the emergency department brought in by EMS for public intoxication tonight. Patient admits to drinking alcohol tonight. Patient is well known to ER staff and has been seen on multiple occasions for similar complaints. The patient denies any fever, chills, chest pain, shortness of breath, abdominal pain, nausea, vomiting, diarrhea, urinary symptoms, back pain, neck pain, headache, dizziness, or any other complaints. Time/Duration: Other (tonight) Symptom Onset: Gradual Symptom Course: Unchanged Activities at Onset: Light Past Medical History - Provider Review Nursing Documentation Reviewed: Yes - Past History Past History: No Previous - Infectious Disease Hx of Infectious Diseases: None - Tetanus Immunization Tetanus Immunization: Unknown - Reproductive Currently : No - Cardiac Hx Cardiac Disorders: Yes Hx Hypertension: Yes (DENIES) - Pulmonary Hx Chronic Obstructive Pulmonary Disease (COPD): Yes - Neurological HX Cerebrovascular Accident: No - HEENT Hx HEENT Disorder: No - Renal Hx Renal Disorder: No - Endocrine/Metabolic Hx Diabetes Mellitus Type 2: Yes - Hematological/Oncological Hx Blood Disorders: Yes - Integumentary Hx Dermatological Disorder: Yes Other/Comment: GENERALIZED MULTIPLE REDDENED RASH TO WHOLE FACE AND CHEST,LOWER PART OF ABDOMINAL AREA. ALSO HAS GENERALIZED INSECT BITES ALL OVER ARMS AND LEGS AND BACK AND BODY. TATTOOS ALL OVER ARMS BACK AND LEGS. - Musculoskeletal/Rheumatological Hx Musculoskeletal Disorders: Yes Hx Falls: Yes - Gastrointestinal Hx Gastrointestinal Disorders: Yes (GI BLEED) Hx Gall Bladder Disease: Yes Hx Pancreatitis: Yes Other/Comment: X2 HERNIA REPAIR acid reflux - Genitourinary/Gynecological Hx Genitourinary Disorders: Yes (ORCHIECTOMY) - Psychiatric Hx Psychophysiologic Disorder: Yes Hx Anxiety: Yes Hx Depression: Yes Hx Substance Use: No (DENIES) - Surgical History Hx Cardiac Catheterization: No Hx Coronary Stent: No Hx Musculoskeletal Surgery: Yes (Left hand surgery DENIES) - Anesthesia Hx Anesthesia: Yes Hx Anesthesia Reactions: No Hx Malignant Hyperthermia: No - Suicidal Assessment Feels Threatened In Home Enviroment: No Family/Social History - Physician Review Nursing Documentation Reviewed: Yes Family/Social History: Unknown Family HX Smoking Status: Current Some Days Smoker Hx Alcohol Use: Yes (DRINKS 2 6 PK/D.DRANK SINCE HE WAS 16 YRS OLD.H/O OF PARENTS DRINKING.) Amount per day: 10 Hx Substance Use: No (DENIES) Hx Substance Use Treatment: No Allergies/Home Meds Allergies/Adverse Reactions: Allergies Penicillins Allergy (Verified 10/22/16 00:38) RASH Home Medications: Home Meds Medication Instructions Recorded Confirmed Pantoprazole Sodium [Protonix] 40 mg PO DAILY 12/10/16 12/12/16 Review of Systems - Physician Review All systems were reviewed & negative as marked: Yes - Review of Systems Constitutional: Normal. absent: Fevers Eyes: Normal ENT: Normal Respiratory: Normal. absent: SOB, Cough Cardiovascular: Normal. absent: Chest Pain Gastrointestinal: Normal. absent: Abdominal Pain, Diarrhea, Nausea, Vomiting Genitourinary Male: Normal. absent: Dysuria, Frequency, Hematuria, Urinary Output Changes Musculoskeletal: Normal. absent: Back Pain, Neck Pain Skin: Normal. absent: Rash Neurological: Normal. absent: Headache, Dizziness Endocrine: Normal Hemo/Lymphatic: Normal Psychiatric: Normal Physical Exam Vital Signs Reviewed: Yes Vital Signs Temp Pulse Resp BP Pulse Ox 12/12/16 05:41 74 16 123/74 96 12/12/16 01:08 98.2 F 78 18 142/78 99 Temperature: Afebrile Blood Pressure: Normal Pulse: Regular Respiratory Rate: Normal Appearance: Positive for: Well-Appearing, Non-Toxic, Comfortable Pain Distress: None Mental Status: Positive for: Alert and Oriented X 3 - Systems Exam Head: Present: Atraumatic, Normocephalic Pupils: Present: PERRL Extroacular Muscles: Present: EOMI Conjunctiva: Present: Normal Mouth: Present: Moist Mucous Membranes Neck: Present: Normal Range of Motion Respiratory/Chest: Present: Clear to Auscultation, Good Air Exchange. No: Respiratory Distress, Accessory Muscle Use Cardiovascular: Present: Regular Rate and Rhythm, Normal S1, S2. No: Murmurs Abdomen: Present: Normal Bowel Sounds. No: Tenderness, Distention, Peritoneal Signs Back: Present: Normal Inspection Upper Extremity: Present: Normal Inspection. No: Cyanosis, Edema Lower Extremity: Present: Normal Inspection. No: Edema Neurological: Present: GCS=15, CN II-XII Intact, Speech Normal Skin: Present: Warm, Dry, Normal Color. No: Rashes Psychiatric: Present: Alert, Oriented x 3, Normal Insight, Normal Concentration Medical Decision Making ED Course and Treatment: 12/12/16 02:05 Impression: 56 year old male brought in for alcohol intoxication tonight. Differential Diagnosis included but are not limited to: alcohol intoxication Plan: -- Reassess and disposition Prior Visits: Notes and results from previous visits were reviewed. Pt well known to ER and has been seen on multiple occasions for similar complaints. Progress Notes: ED OBSERVATION Discharge: Yes Date of observation admission: 12/12/16 Time of observation admission: 02:05 - Observation admission statement Patient is being placed in observation because:: alcohol intoxication - Goals of Observation Goals of observation are:: sobriety, observe for signs of withdrawal - Progress Note Progress Note: 12/12/16 02:05 Pt brought in for public intoxication. Will observe pending sobriety. Pt resting comfortably, no new complaints. 12/12/16 04:05 Pt sleeping currently, in no acute distress. 12/12/16 06:05 Pt resting comfortably, no new complaints. Disposition/Present on Arrival - Present on Arrival Any Indicators Present on Arrival: No History of DVT/PE: No History of Uncontrolled Diabetes: No Urinary Catheter: No History of Decub. Ulcer: No History Surgical Site Infection Following: None - Disposition Have Diagnosis and Disposition been Completed?: Yes Diagnosis: Alcohol abuse Disposition: HOME/ ROUTINE Disposition Time: :17 Patient Plan: Discharge Condition: GOOD
[2016-12-12 02:22] VITALS: TEMP 98.2
[2016-12-12 05:41] VITALS: RESP 16
[2016-12-12 06:25] VITALS: BP 126/74; PULSE 78; O2SAT 100
== END 2016-12-12 06:20 | disposition home or self-care (01) ==
LOC: ED 01:08 → EROBSV 02:05
PROVIDERS: ADMIT Emergency Medicine; ATTEND Emergency Medicine
DX: F10.10 Alcohol abuse, uncomplicated (principal)
CPT/HCPCS: 99282; G0378

== ENCOUNTER 2016-12-28 20:30 | Emergency (ER) | payer MEDICAID ==
[2016-12-28 20:33] VITALS: BMI 29.0
[2016-12-28] MEDS ORDERED: Aspirin 325 mg EC Tablets PO STA (20:48)
[2016-12-28] MEDS ORDERED: Multivitamin (MVI) 10 ML, Thiamine 100 MG, Folic Acid 1 MG in Sodium Chloride 0.9% 1,00... IV ONE (20:49)
--- NOTE | 2016-12-28 20:53 | ED PDOC ---
Arrival/HPI - General Historian: Patient - History of Present Illness Time/Duration: Prior to Arrival Severity Level: Mild - General Chief Complaint: Alcohol Ingestion Time Seen by Provider: 12/28/16 20:40 - History of Present Illness Associated Symptoms (Text): 12/28/16 20:51 Patient is well known to the emergency department staff. He is frequently seen as a chronic alcoholic with alcohol intoxication. He complains of chest pain and shortness of breath this evening. He reports that he last drank some time this afternoon. Denies any abdominal pain nausea or vomiting. He is unkempt and extremely foul smelling. He denies any injury or trauma. (Tolerico,Yoan) Past Medical History - Past History Past History: No Previous - Infectious Disease Hx of Infectious Diseases: None - Tetanus Immunization Tetanus Immunization: Unknown - Reproductive Currently : No - Cardiac Hx Cardiac Disorders: Yes Hx Hypertension: Yes (DENIES) - Pulmonary Hx Chronic Obstructive Pulmonary Disease (COPD): Yes - Neurological HX Cerebrovascular Accident: No - HEENT Hx HEENT Disorder: No - Renal Hx Renal Disorder: No - Endocrine/Metabolic Hx Diabetes Mellitus Type 2: Yes - Hematological/Oncological Hx Blood Disorders: Yes - Integumentary Hx Dermatological Disorder: Yes Other/Comment: GENERALIZED MULTIPLE REDDENED RASH TO WHOLE FACE AND CHEST,LOWER PART OF ABDOMINAL AREA. ALSO HAS GENERALIZED INSECT BITES ALL OVER ARMS AND LEGS AND BACK AND BODY. TATTOOS ALL OVER ARMS BACK AND LEGS. - Musculoskeletal/Rheumatological Hx Musculoskeletal Disorders: Yes Hx Falls: Yes - Gastrointestinal Hx Gastrointestinal Disorders: Yes (GI BLEED) Hx Gall Bladder Disease: Yes Hx Pancreatitis: Yes Other/Comment: X2 HERNIA REPAIR acid reflux - Genitourinary/Gynecological Hx Genitourinary Disorders: Yes (ORCHIECTOMY) - Psychiatric Hx Psychophysiologic Disorder: Yes Hx Anxiety: Yes Hx Depression: Yes Hx Substance Use: No (DENIES) - Surgical History Hx Cardiac Catheterization: No Hx Coronary Stent: No Hx Musculoskeletal Surgery: Yes (Left hand surgery DENIES) - Anesthesia Hx Anesthesia: Yes Hx Anesthesia Reactions: No Hx Malignant Hyperthermia: No - Suicidal Assessment Feels Threatened In Home Enviroment: No Family/Social History - Physician Review Nursing Documentation Reviewed: Yes Family/Social History: Unknown Family HX Smoking Status: Current Some Days Smoker Hx Alcohol Use: Yes (DRINKS 2 6 PK/D.DRANK SINCE HE WAS 16 YRS OLD.H/O OF PARENTS DRINKING.) Amount per day: 10 Hx Substance Use: No (DENIES) Hx Substance Use Treatment: No Allergies/Home Meds Allergies/Adverse Reactions: Allergies Penicillins Allergy (Verified 10/22/16 00:38) RASH Home Medications: Home Meds Medication Instructions Recorded Confirmed No Known Home Med 12/28/16 12/28/16 Review of Systems - Physician Review All systems were reviewed & negative as marked: Yes - Review of Systems Constitutional: Fatigue Respiratory: SOB Cardiovascular: Chest Pain Gastrointestinal: absent: Abdominal Pain, Diarrhea, Vomiting Neurological: absent: Headache, Dizziness Physical Exam Temperature: Afebrile Blood Pressure: Normal Pulse: Regular Respiratory Rate: Normal Appearance: Positive for: Well-Appearing, Non-Toxic, Comfortable, Unkept Pain Distress: None Mental Status: Positive for: Alert and Oriented X 3, other (Intoxicated) - Systems Exam Head: Present: Atraumatic, Normocephalic Pupils: Present: PERRL Extroacular Muscles: Present: EOMI Conjunctiva: Present: Normal Mouth: Present: Moist Mucous Membranes Pharnyx: No: ERYTHEMA, EXUDATE, TONSILS ENLARGED Neck: Present: Normal Range of Motion Respiratory/Chest: Present: Clear to Auscultation, Good Air Exchange, Decreased Breath Sounds. No: Respiratory Distress, Accessory Muscle Use Cardiovascular: Present: Regular Rate and Rhythm, Normal S1, S2. No: Murmurs Abdomen: Present: Normal Bowel Sounds. No: Tenderness, Distention, Peritoneal Signs, Rebound, Guarding Back: Present: Normal Inspection Upper Extremity: Present: Normal Inspection. No: Cyanosis, Edema Lower Extremity: Present: Normal Inspection, Other (bilateral feet funga). No: Edema Neurological: Present: GCS=15, CN II-XII Intact, Speech Normal, Motor Func Grossly Intact Skin: Present: Warm, Dry, Normal Color. No: Rashes Vital Signs Temp Pulse Resp BP Pulse Ox 12/29/16 09:07 100 H 17 139/94 H 96 12/29/16 07:30 98.3 F 105 H 17 133/80 96 12/29/16 05:00 83 18 144/85 97 12/29/16 03:00 85 18 142/83 97 12/29/16 01:00 82 18 148/87 97 12/28/16 23:00 85 18 145/89 97 12/28/16 21:28 98.2 F 83 18 149/92 H 97 Medical Decision Making - RAD Interpretation Skin Diver: ED Physician ED Course and Treatment: 12/28/16 22:20 Case endorsed to me by Dr. Coyle, pending CTA and troponin. 12/29/16 01:00 Pt to undergo VQ scan due to inability to obtain additional IV access necessary for contrast study. 12/29/16 02:00 Notified by VQ scan tech, awaiting arrival of isotope to perform study. 12/29/16 06:58 Case endorsed to /pending V/Q scan/sobriety/reassess/final disposition (Heraclio Jordan) 12/28/16 20:56 EKG shows normal sinus rhythm rate approximately 90 with PACs and no acute ST or T-wave changes 12/28/16 22:18 Patient's EKG and chest x-ray are normal. Troponin and BNP are normal. His alcohol level is elevated at 385. His d-dimer is elevated and the CTA has been ordered. Care this patient will be endorsed to the night emergency department physician , pending CTA and repeat troponin. 12/29/16 07:08 Patient is in nuclear medicine now for his VQ scan. Repeat troponin was negative. 12/29/16 08:58 VQ scan is read by the V rad radiologist shows no findings to suggest pulmonary embolism. Patient will be discharged home. Follow-up with PMD. Follow up in ER as needed. (Yoan Coyle) - Lab Interpretations Lab Results: 12/28/16 21:20 12/28/16 21:20 Lab Results 12/29/16 03:55: Troponin I < 0.01 12/28/16 21:20: Alcohol, Quantitative 385 H* 12/28/16 21:20: Sodium 131 L, Potassium 3.4 L, Chloride 91 L, Carbon Dioxide 25 , Anion Gap 18, BUN 7, Creatinine 0.7 L, Est GFR ( Amer) > 60, Est GFR ( Non-Af Amer) > 60, Random Glucose 127 H, Calcium 8.0 L, Total Bilirubin 0.5, AST 53, ALT 37, Alkaline Phosphatase 93, Lactate Dehydrogenase 520, Total Creatine Kinase 154, Troponin I < 0.01, NT-Pro-B Natriuret Pep 28.9, Total Protein 7.3, Albumin 4.2, Globulin 3.1, Albumin/Globulin Ratio 1.4 12/28/16 21:20: PT 11.8, INR 1.09 H, APTT 25.9, D-Dimer, Quantitative 2.14 H 12/28/16 21:20: WBC 7.3, RBC 4.03, Hgb 9.4 L, Hct 29.8 L, MCV 73.9 L D, MCH 23.3 L, MCHC 31.5, RDW 17.3 H, Plt Count 153, MPV 8.2, Gran % 74.4 H, Lymph % ( Auto) 16.2 L, Mingo % (Auto) 6.9 H, Eos % (Auto) 2.1, Baso % (Auto) 0.4, Gran # 5.42, Lymph # 1.2, Mingo # 0.5, Eos # 0.2, Baso # 0.03 - RAD Interpretation Radiology Orders: 12/28/16 20:48 CHEST PORTABLE [RAD] Stat 12/28/16 22:07 ANGIO CHEST PE PROTOCOL [CT] Stat 12/29/16 01:45 LUNG PERF & VENT SCAN [NM] Stat Chest 1 view shows no infiltrate effusion or cardiomegaly (Tolerico,Yoan) - Medication Orders Current Medication Orders: Discontinued Medications Aspirin (Ecotrin) 325 mg PO STAT STA Stop: 12/28/16 20:49 Last Admin: 12/28/16 21:21 Dose: 325 mg Multivitamins/Vitamin C 10 ml/Thiamine HCl 100 mg/ Folic Acid 1 mg/ Sodium Chloride 1,011.2 mls @ 100 mls/hr IV .Q10H7M ONE Stop: 12/29/16 06:55 Last Admin: 12/28/16 21:50 Dose: 100 mls/hr eMAR Start Stop Document 12/28/16 21:50 JOL (Rec: 12/28/16 23:44 JOL [facility] [id number][place] Intravenous Solution Start Date 12/28/16 Start Time 21:50 End Date 12/29/16 End time 07:30 Total Infusion Time 580 Potassium Chloride (Potassium Chloride Oral Soln) 20 meq PO STAT STA Stop: 12/28/16 21:59 Last Admin: 12/29/16 09:16 Dose: 20 meq Disposition/Present on Arrival - Present on Arrival Any Indicators Present on Arrival: No History of DVT/PE: No History of Uncontrolled Diabetes: No Urinary Catheter: No History of Decub. Ulcer: No History Surgical Site Infection Following: None - Disposition Have Diagnosis and Disposition been Completed?: Yes Disposition Time: 08:59 Patient Plan: Discharge - Disposition Diagnosis: Alcohol abuse, Chest pain, Shortness of breath, Anemia Disposition: HOME/ ROUTINE Condition: FAIR Discharge Instructions (ExitCare): Chest Pain (ED), Alcohol Intoxication (ED), Abuse of Alcohol (ED) Referrals: Tommie Alexander MD [Primary Care Provider] - Follow up with primary Forms: [employer] (Algerian)
[2016-12-28 21:47] LABS: BASO # 0.03 K/mm3 (0.0-2.0); BASO % 0.4 % (0.0-3.0); EOS # 0.2 (0.0-0.7); EOS % 2.1 % (1.5-5.0); GRAN # 5.42 (1.4-6.5); GRAN % 74.4 % (50.0-68.0); HEMATOCRIT 29.8 % (42.0-52.0); LYMPH # 1.2 (1.2-3.4); LYMPH % 16.2 % (22.0-35.0); MEAN CELL VOLUME 73.9 fl (80.0-105.0); MEAN CORPUSCULAR HEMOGLOBIN 23.3 pg (25.0-35.0); MEAN CORPUSCULAR HGB CONC 31.5 g/dl (31.0-37.0); MEAN PLATELET VOLUME 8.2 fl (7.0-11.0); MONO # 0.5 (0.1-0.6); MONO % 6.9 % (1.0-6.0); RED CELL DISTRIBUTION WIDTH 17.3 % (11.5-14.5); WHITE BLOOD COUNT 7.3 10^3/ul (4.5-11.0)
[2016-12-28 21:56] LABS: ALB/GLOB RATIO 1.4 (1.1-1.8); ALKALINE PHOSPHATASE 93 U/L (38-126); ALT/SGPT 37 U/L (7-56); AST/SGOT 53 U/L (17-59); BILIRUBIN,TOTAL 0.5 mg/dL (0.2-1.3); BLOOD UREA NITROGEN 7 mg/dL (7-21); CARBON DIOXIDE 25 mmol/L (21-33); CHLORIDE 91 mmol/L (98-107); GFR AFRICAN-AMERICAN > 60; GLUCOSE,RANDOM 127 mg/dL (70-110); POTASSIUM 3.4 mmol/L (3.6-5.0); SODIUM 131 mmol/L (132-148); TOTAL PROTEIN 7.3 g/dL (5.8-8.3)
[2016-12-28] MEDS ORDERED: Potassium Chloride 20 mEq/15 ml LIQ UD PO STA (21:58)
[2016-12-28 22:01] LABS: INR 1.09 (0.93-1.08); PARTIAL THROMBOPLASTIN TIME 25.9 Seconds (23.7-30.8)
[2016-12-28 22:06] LABS: D DIMER 2.14 mg/L FEU (0-0.50)
[2016-12-28 22:11] LABS: TROPONIN I < 0.01 ng/mL
[2016-12-29 07:53] VITALS: RESP 17; TEMP 98.3; O2SAT 96
[2016-12-29 09:11] VITALS: BP 139/94; PULSE 100
--- NOTE | 2016-12-29 10:32 | NM ---
COMPARISON: December 28, 2016. Single-view chest TECHNIQUE: 40.0 mCi technetium 99-m DTPA aerosol. 4.0 mCI technetium 99-m MAA administered intravenously. FINDINGS: VENTILATION COMPONENT: No ventilatory abnormalities identified. Retention of radionuclide centrally within the tracheobronchial tree reflects a component of COPD. Ingestion of radionuclide in the stomach also noted PERFUSION COMPONENT: Mildly asymmetric heterogeneous profusion left lung, left upper lobe compared to right. IMPRESSION: Low probability ventilation perfusion scan for pulmonary embolism. Concordant results (preliminary interpretation) provided by [facility]. Procedure Completed: 07:12 Preliminary ([facility]) Report: Dictated and Authenticated: 08:10 Final Interpretation: 10:30 December 29, 2016.
--- NOTE | 2016-12-29 10:53 | RAD ---
HISTORY: Chest pain. Technique: Single view portable semi erect @ 21:06 COMPARISON: 11/22/2016 FINDINGS: LUNGS: No active pulmonary disease. PLEURA: No significant pleural effusion identified, no pneumothorax apparent. CARDIOVASCULAR: No radiographic findings to suggest acute or significant cardiovascular disease. OSSEOUS STRUCTURES: No significant abnormalities. VISUALIZED UPPER ABDOMEN: Normal. OTHER FINDINGS: None. IMPRESSION: No active disease. No significant interval change compared to the prior examination(s). Please note: No preliminary report/ innterpretation of this examination provided by emergency department personnel.
--- NOTE | 2016-12-29 19:46 | CARD ---
APPROVED REPORT EKG Measurement Heart [id number] <Conclusion> Sinus rhythm with premature atrial complexes Otherwise normal ECG
== END 2016-12-29 09:20 | disposition home or self-care (01) ==
LOC: ED 20:30
DX: F10.10 Alcohol abuse, uncomplicated (principal); Y90.8 Blood alcohol level of 240 mg/100 ml or more; R07.9 Chest pain, unspecified; R06.02 Shortness of breath; D64.9 Anemia, unspecified; I10 Essential (primary) hypertension; E11.9 Type 2 diabetes mellitus without complications; F17.210 Nicotine dependence, cigarettes, uncomplicated
CPT/HCPCS: 71010; 78582; 80053; 80320; 82550; 83615; 83880; 84484; 85025; 85378; 85610; 85730; 93005; 96360; 96361; 99285; J3411; J7040

== ENCOUNTER 2017-01-11 20:56 | Emergency (ER) | payer MEDICAID ==
[2017-01-11 21:05] VITALS: BMI 27.3
--- NOTE | 2017-01-11 21:14 | ED PDOC ---
Arrival/HPI - General Historian: Patient <Jeannette Smith - Last Filed: 01/12/17 01:59> <Heraclio Jordan - Last Filed: 01/12/17 07:17> <Eric Barry - Last Filed: 01/12/17 09:22> - General Chief Complaint: Alcohol Ingestion Time Seen by Provider: 01/11/17 21:07 - History of Present Illness Narrative History of Present Illness (Text): 01/11/17 21:08 56yo male biba for alcohol abuse. Patient admits to drinking "couple of beers". He is well known to the Ed for alcohol abuse. He denies any somatic or psychological complaint in ED. (Jeannette Smith A) Past Medical History - Provider Review Nursing Documentation Reviewed: Yes - Past History Past History: No Previous - Infectious Disease Hx of Infectious Diseases: None - Tetanus Immunization Tetanus Immunization: Unknown - Reproductive Currently : No - Cardiac Hx Cardiac Disorders: Yes Hx Hypertension: Yes (DENIES) - Pulmonary Hx Chronic Obstructive Pulmonary Disease (COPD): Yes - Neurological HX Cerebrovascular Accident: No - HEENT Hx HEENT Disorder: No - Renal Hx Renal Disorder: No - Endocrine/Metabolic Hx Diabetes Mellitus Type 2: Yes - Hematological/Oncological Hx Blood Disorders: Yes - Integumentary Hx Dermatological Disorder: Yes Other/Comment: GENERALIZED MULTIPLE REDDENED RASH TO WHOLE FACE AND CHEST,LOWER PART OF ABDOMINAL AREA. ALSO HAS GENERALIZED INSECT BITES ALL OVER ARMS AND LEGS AND BACK AND BODY. TATTOOS ALL OVER ARMS BACK AND LEGS. - Musculoskeletal/Rheumatological Hx Musculoskeletal Disorders: Yes Hx Falls: Yes - Gastrointestinal Hx Gastrointestinal Disorders: Yes (GI BLEED) Hx Gall Bladder Disease: Yes Hx Pancreatitis: Yes Other/Comment: X2 HERNIA REPAIR acid reflux - Genitourinary/Gynecological Hx Genitourinary Disorders: Yes (ORCHIECTOMY) - Psychiatric Hx Psychophysiologic Disorder: Yes Hx Anxiety: Yes Hx Depression: Yes Hx Substance Use: No (DENIES) - Surgical History Hx Cardiac Catheterization: No Hx Coronary Stent: No Hx Musculoskeletal Surgery: Yes (Left hand surgery DENIES) - Anesthesia Hx Anesthesia: Yes Hx Anesthesia Reactions: No Hx Malignant Hyperthermia: No - Suicidal Assessment Feels Threatened In Home Enviroment: No <Jeannette Smith - Last Filed: 01/12/17 01:59> Family/Social History - Physician Review Nursing Documentation Reviewed: Yes Family/Social History: Unknown Family HX Smoking Status: Current Some Days Smoker Hx Alcohol Use: Yes (DRINKS 2 6 PK/D.DRANK SINCE HE WAS 16 YRS OLD.H/O OF PARENTS DRINKING.) Amount per day: 10 Hx Substance Use: No (DENIES) Hx Substance Use Treatment: No <LuisJeannette - Last Filed: 01/12/17 01:59> Allergies/Home Meds <Jeannette Smith A - Last Filed: 01/12/17 01:59> <Heraclio Jordan - Last Filed: 01/12/17 07:17> <Eric Barry - Last Filed: 01/12/17 09:22> Allergies/Adverse Reactions: Allergies Penicillins Allergy (Verified 10/22/16 00:38) RASH Home Medications: Home Meds Medication Instructions Recorded Confirmed No Known Home Med 01/11/17 01/11/17 Review of Systems - Physician Review All systems were reviewed & negative as marked: Yes - Review of Systems Systems not reviewed;Unavailable: Intoxicated Constitutional: Normal Eyes: Normal ENT: Normal Respiratory: Normal Cardiovascular: Normal Gastrointestinal: Normal Genitourinary Male: Normal Musculoskeletal: Normal Skin: Normal Neurological: Normal Endocrine: Normal Hemo/Lymphatic: Normal Psychiatric: Normal <Jeannette Smith A - Last Filed: 01/12/17 01:59> Physical Exam Vital Signs Reviewed: Yes Temperature: Afebrile Blood Pressure: Normal Pulse: Regular Respiratory Rate: Normal Appearance: Positive for: Well-Appearing, Non-Toxic, Comfortable, Unkept Pain Distress: None Mental Status: Positive for: Alert and Oriented X 3 - Systems Exam Head: Present: Atraumatic, Normocephalic Pupils: Present: PERRL Extroacular Muscles: Present: EOMI Conjunctiva: Present: Normal Mouth: Present: Moist Mucous Membranes Neck: Present: Normal Range of Motion Respiratory/Chest: Present: Clear to Auscultation, Good Air Exchange. No: Respiratory Distress, Accessory Muscle Use Cardiovascular: Present: Regular Rate and Rhythm, Normal S1, S2. No: Murmurs Abdomen: Present: Normal Bowel Sounds. No: Tenderness, Distention, Peritoneal Signs Back: Present: Normal Inspection Upper Extremity: Present: Normal Inspection. No: Cyanosis, Edema Lower Extremity: Present: Normal Inspection. No: Edema Neurological: Present: GCS=15, CN II-XII Intact, Speech Normal Skin: Present: Warm, Dry, Normal Color. No: Rashes Psychiatric: Present: Alert, Oriented x 3, Normal Insight, Normal Concentration <Jeannette Smith - Last Filed: 01/12/17 01:59> Vital Signs Temp Pulse Resp BP Pulse Ox 01/12/17 05:00 86 18 138/83 99 01/12/17 03:00 83 18 133/81 99 01/12/17 01:00 81 18 130/79 99 01/11/17 23:00 82 18 132/82 99 01/11/17 21:04 98.6 F 80 18 136/84 99 01/11/17 21:02 98.1 F 90 20 126/88 99 Medical Decision Making <Jeannette Smith - Last Filed: 01/12/17 01:59> <Heraclio Jordan - Last Filed: 01/12/17 07:17> <Eric Barry - Last Filed: 01/12/17 09:22> ED Course and Treatment: 01/11/17 21:15 56yo male biba for alcohol abuse He was hemodynamically stable in ED. He will be observe in ED for sobriety. 01/12/17 01:[address] Jordan to DC home pending sobriety (Jeannette Smith) 01/12/17 07:15 Case endorsed to pending final disposition (Heraclio Jordan) 01/12/17 09:10 Normal speech. Steady gait. Not tremulous or tachycardic. Denies chest pain or shortness of breath. Denies abdominal pain. Offered etoh counseling, he wishes to go home. Risks of alcohol abuse reviewed with patient. Denies melena. Denies hematemesis. Denies dark or bloody stool. (Eric Barry) - Medication Orders Current Medication Orders: Discontinued Medications Chlordiazepoxide (Librium) 50 mg PO STAT STA Stop: 01/12/17 06:53 Last Admin: 01/12/17 07:04 Dose: 50 mg - PA / [employer]ED[employer] OPERATOR / Resident Statement / has reviewed & agrees with the documentation as recorded. / has examined the patient and agrees with the treatment plan. <Heraclio Jordan - Last Filed: 01/12/17 07:17> Disposition/Present on Arrival - Present on Arrival History of DVT/PE: No History of Uncontrolled Diabetes: No Urinary Catheter: No History of Decub. Ulcer: No History Surgical Site Infection Following: None <Jeannette Smith - Last Filed: 01/12/17 01:59> <Heraclio Jordan - Last Filed: 01/12/17 07:17> - Present on Arrival Any Indicators Present on Arrival: No - Disposition Have Diagnosis and Disposition been Completed?: Yes Disposition Time: 09:11 Patient Plan: Discharge <AshaEric - Last Filed: 01/12/17 09:22> - Disposition Diagnosis: Alcohol intoxication Disposition: HOME/ ROUTINE Condition: GOOD Discharge Instructions (ExitCare): Abuse of Alcohol (ED) Additional Instructions: For any headaches, any chest pain or shortness of breath, any shaking or tremors , any unsteadiness, any abdominal pain, any dark or bloody stool, any palpitations, get rechecked. Follow-up with Dr. Desir in 1-2 days. Referrals: Chuy Desir MD [Primary Care Provider] - Follow up with primary Forms: [employer] (Qatari)
[2017-01-12 09:14] VITALS: PULSE 92; RESP 17; O2SAT 98
[2017-01-12 09:26] VITALS: BP 138/82; TEMP 98.1
== END 2017-01-12 09:27 | disposition home or self-care (01) ==
LOC: ED 20:56
DX: F10.120 Alcohol abuse with intoxication, uncomplicated (principal); Y90.9 Presence of alcohol in blood, level not specified

== ENCOUNTER 2017-01-14 22:30 | Emergency (ER) | payer MEDICAID ==
[2017-01-14 22:31] VITALS: BMI 27.3
--- NOTE | 2017-01-14 23:12 | ED PDOC ---
Arrival/HPI - General Chief Complaint: Alcohol Ingestion Time Seen by Provider: 01/14/17 22:42 Historian: Patient - History of Present Illness Narrative History of Present Illness (Text): 01/14/17 23:05 Orion Royal is a 56 year old male, whose past medical history includes chronic alcohol abuse, who presents to the Emergency department brought in by EMS for public intoxication tonight. Patient is well known to Emergency room staff and has been seen on multiple occasions for similar complaints. Patient admits to drinking alcohol tonight. Patient denies any suicidal ideation, homicidal ideation, fever, chills, chest pain, shortness of breath, abdominal pain, nausea, vomiting, diarrhea, urinary symptoms, back pain, neck pain, headache, dizziness, or any other complaints. Time/Duration: Other (tonight) Symptom Onset: Gradual Symptom Course: Unchanged Activities at Onset: Light Context: Home Past Medical History - Provider Review Nursing Documentation Reviewed: Yes - Past History Past History: No Previous - Infectious Disease Hx of Infectious Diseases: None - Tetanus Immunization Tetanus Immunization: Unknown - Reproductive Currently : No - Cardiac Hx Cardiac Disorders: Yes Hx Hypertension: Yes (DENIES) - Pulmonary Hx Chronic Obstructive Pulmonary Disease (COPD): Yes - Neurological HX Cerebrovascular Accident: No - HEENT Hx HEENT Disorder: No - Renal Hx Renal Disorder: No - Endocrine/Metabolic Hx Diabetes Mellitus Type 2: Yes - Hematological/Oncological Hx Blood Disorders: Yes - Integumentary Hx Dermatological Disorder: Yes Other/Comment: GENERALIZED MULTIPLE REDDENED RASH TO WHOLE FACE AND CHEST,LOWER PART OF ABDOMINAL AREA. ALSO HAS GENERALIZED INSECT BITES ALL OVER ARMS AND LEGS AND BACK AND BODY. TATTOOS ALL OVER ARMS BACK AND LEGS. - Musculoskeletal/Rheumatological Hx Musculoskeletal Disorders: Yes Hx Falls: Yes - Gastrointestinal Hx Gastrointestinal Disorders: Yes (GI BLEED) Hx Gall Bladder Disease: Yes Hx Pancreatitis: Yes Other/Comment: X2 HERNIA REPAIR acid reflux - Genitourinary/Gynecological Hx Genitourinary Disorders: Yes (ORCHIECTOMY) - Psychiatric Hx Psychophysiologic Disorder: Yes Hx Anxiety: Yes Hx Depression: Yes Hx Substance Use: No (DENIES) - Surgical History Hx Cardiac Catheterization: No Hx Coronary Stent: No Hx Musculoskeletal Surgery: Yes (Left hand surgery DENIES) - Anesthesia Hx Anesthesia: Yes Hx Anesthesia Reactions: No Hx Malignant Hyperthermia: No - Suicidal Assessment Feels Threatened In Home Enviroment: No Family/Social History - Physician Review Nursing Documentation Reviewed: Yes Family/Social History: Unknown Family HX Smoking Status: Current Some Days Smoker Hx Alcohol Use: Yes (DRINKS 2 6 PK/D.DRANK SINCE HE WAS 16 YRS OLD.H/O OF PARENTS DRINKING.) Amount per day: 10 Hx Substance Use: No (DENIES) Hx Substance Use Treatment: No Allergies/Home Meds Allergies/Adverse Reactions: Allergies Penicillins Allergy (Verified 10/22/16 00:38) RASH Home Medications: Home Meds Medication Instructions Recorded Confirmed No Known Home Med 01/11/17 01/11/17 Review of Systems - Physician Review All systems were reviewed & negative as marked: Yes - Review of Systems Constitutional: Normal. absent: Fevers Eyes: Normal ENT: Normal Respiratory: Normal. absent: SOB, Cough Cardiovascular: Normal. absent: Chest Pain Gastrointestinal: Normal. absent: Abdominal Pain, Diarrhea, Nausea, Vomiting Genitourinary Male: Normal. absent: Dysuria, Frequency, Hematuria, Urinary Output Changes Musculoskeletal: Normal. absent: Back Pain, Neck Pain Skin: Normal. absent: Rash Neurological: Normal. absent: Headache, Dizziness Endocrine: Normal Hemo/Lymphatic: Normal Psychiatric: Normal. absent: Suicidal Ideation Physical Exam Vital Signs Reviewed: Yes Vital Signs Temp Pulse Resp BP Pulse Ox 01/15/17 05:30 98.1 F 84 20 142/70 97 01/15/17 02:03 85 22 139/69 98 01/14/17 22:42 99.1 F 90 24 140/86 95 Temperature: Afebrile Blood Pressure: Normal Pulse: Regular Respiratory Rate: Normal Appearance: Positive for: Well-Appearing, Non-Toxic, Comfortable Pain Distress: None Mental Status: Positive for: Alert and Oriented X 3 Finger Stick Blood Glucose: 198 - Systems Exam Head: Present: Atraumatic, Normocephalic Pupils: Present: PERRL Extroacular Muscles: Present: EOMI Conjunctiva: Present: Normal Mouth: Present: Moist Mucous Membranes Neck: Present: Normal Range of Motion Respiratory/Chest: Present: Clear to Auscultation, Good Air Exchange. No: Respiratory Distress, Accessory Muscle Use Cardiovascular: Present: Regular Rate and Rhythm, Normal S1, S2. No: Murmurs Abdomen: Present: Normal Bowel Sounds. No: Tenderness, Distention, Peritoneal Signs Back: Present: Normal Inspection Upper Extremity: Present: Normal Inspection. No: Cyanosis, Edema Lower Extremity: Present: Normal Inspection. No: Edema Neurological: Present: GCS=15, CN II-XII Intact, Speech Normal Skin: Present: Warm, Dry, Normal Color. No: Rashes Psychiatric: Present: Alert, Oriented x 3, Normal Insight, Normal Concentration Medical Decision Making ED Course and Treatment: 01/14/17 23:05 Impression: 56 year old male presents for alcohol intoxication tonight. Differential Diagnosis included but are not limited to: alcohol intoxication Plan: -- Reassess and disposition Prior Visits: Notes and results from previous visits were reviewed. Progress Notes: - Scribe Statement The provider has reviewed the documentation as recorded by the Scribe Deborah Kaiser All medical record entries made by the Scribe were at my direction and personally dictated by me. I have reviewed the chart and agree that the record accurately reflects my personal performance of the history, physical exam, medical decision making, and the department course for this patient. I have also personally directed, reviewed, and agree with the discharge instructions and disposition. Disposition/Present on Arrival - Present on Arrival Any Indicators Present on Arrival: No History of DVT/PE: No History of Uncontrolled Diabetes: No Urinary Catheter: No History of Decub. Ulcer: No History Surgical Site Infection Following: None - Disposition Have Diagnosis and Disposition been Completed?: Yes Diagnosis: Alcohol abuse Disposition: HOME/ ROUTINE Disposition Time: 06:00 Condition: GOOD Referrals: Chuy Desir MD [Primary Care Provider] - Follow up with primary Alcoholics Anonymous [Outside] - Follow up with primary Forms: [employer] (Uruguayan)
[2017-01-15 05:42] VITALS: BP 142/70; PULSE 84; RESP 20; TEMP 98.1; O2SAT 97
== END 2017-01-15 06:05 | disposition home or self-care (01) ==
LOC: ED 22:30
DX: F10.129 Alcohol abuse with intoxication, unspecified (principal); E11.9 Type 2 diabetes mellitus without complications; F17.200 Nicotine dependence, unspecified, uncomplicated; Z88.0 Allergy status to penicillin

== ENCOUNTER 2017-01-15 16:37 | Inpatient (IN) | payer MEDICAID ==
--- NOTE | 2017-01-15 17:06 | ED PDOC ---
Arrival/HPI - General Chief Complaint: Chest Pain Time Seen by Provider: 01/15/17 16:44 Historian: Patient - History of Present Illness Narrative History of Present Illness (Text): 01/15/17 17:06 A 56 year old male, whose past medical history includes alcohol abuse, hypertension, erosive esophagitis, chronic pancreatitis, anemia and hepatitis c , presents to the emergency department complaining of abdominal pain radiating to chest since earlier today. Patient admits to drinking alcohol and reports his symptoms began after alcohol consumption. Patient describes his pain as a heavy sensation and notes associated shortness of breath with cough. Patient notes brownish blood tinged vomiting but denies any fever, chills, urinary symptoms, hematochezia, headache, dizziness or any other complaints. Time/Duration: Prior to Arrival Symptom Course: Unchanged Quality: Other Context: Other Past Medical History - Provider Review Nursing Documentation Reviewed: Yes - Past History Past History: No Previous - Infectious Disease Hx of Infectious Diseases: None - Tetanus Immunization Tetanus Immunization: Unknown - Reproductive Currently : No - Cardiac Hx Cardiac Disorders: Yes Hx Hypertension: Yes (DENIES) - Pulmonary Hx Chronic Obstructive Pulmonary Disease (COPD): Yes - Neurological HX Cerebrovascular Accident: No - HEENT Hx HEENT Disorder: No - Renal Hx Renal Disorder: No - Endocrine/Metabolic Hx Diabetes Mellitus Type 2: Yes - Hematological/Oncological Hx Blood Disorders: Yes - Integumentary Hx Dermatological Disorder: Yes Other/Comment: GENERALIZED MULTIPLE REDDENED RASH TO WHOLE FACE AND CHEST,LOWER PART OF ABDOMINAL AREA. ALSO HAS GENERALIZED INSECT BITES ALL OVER ARMS AND LEGS AND BACK AND BODY. TATTOOS ALL OVER ARMS BACK AND LEGS. - Musculoskeletal/Rheumatological Hx Musculoskeletal Disorders: Yes Hx Falls: Yes - Gastrointestinal Hx Gastrointestinal Disorders: Yes (GI BLEED) Hx Gall Bladder Disease: Yes Hx Pancreatitis: Yes Other/Comment: X2 HERNIA REPAIR acid reflux - Genitourinary/Gynecological Hx Genitourinary Disorders: Yes (ORCHIECTOMY) - Psychiatric Hx Psychophysiologic Disorder: Yes Hx Anxiety: Yes Hx Depression: Yes Hx Substance Use: No (DENIES) - Surgical History Hx Cardiac Catheterization: No Hx Coronary Stent: No Hx Musculoskeletal Surgery: Yes (Left hand surgery DENIES) - Anesthesia Hx Anesthesia: Yes Hx Anesthesia Reactions: No Hx Malignant Hyperthermia: No - Suicidal Assessment Feels Threatened In Home Enviroment: No Family/Social History - Physician Review Nursing Documentation Reviewed: Yes Family/Social History: No Known Family HX Smoking Status: Current Some Days Smoker Hx Alcohol Use: Yes (DRINKS 2 6 PK/D.DRANK SINCE HE WAS 16 YRS OLD.H/O OF PARENTS DRINKING.) Amount per day: 10 Hx Substance Use: No (DENIES) Hx Substance Use Treatment: No Allergies/Home Meds Allergies/Adverse Reactions: Allergies Penicillins Allergy (Verified 10/22/16 00:38) RASH Home Medications: Home Meds Medication Instructions Recorded Confirmed Folic Acid 0 mg PO DAILY 01/15/17 01/15/17 Review of Systems - Physician Review All systems were reviewed & negative as marked: Yes - Review of Systems Constitutional: absent: Fevers, Night Sweats Respiratory: SOB, Cough Cardiovascular: Chest Pain Gastrointestinal: Abdominal Pain, Vomiting. absent: Hematochezia Genitourinary Male: absent: Dysuria, Frequency, Hematuria Neurological: absent: Headache, Dizziness Physical Exam Vital Signs Reviewed: Yes Vital Signs Temp Pulse Pulse Resp BP BP Pulse Ox 01/15/17 19:00 87 16 129/82 94 L 01/15/17 17:36 84 18 134/81 93 L 01/15/17 16:50 90 132/87 01/15/17 16:49 98.0 F 97 H 16 132/87 95 Temperature: Afebrile Blood Pressure: Normal Pulse: Tachycardic Respiratory Rate: Normal Appearance: Positive for: Non-Toxic, Uncomfortable (actively vomiting - coffee ground emesis) Pain Distress: Mild Mental Status: Positive for: Alert and Oriented X 3 - Systems Exam Head: Present: Atraumatic, Normocephalic Pupils: Present: PERRL Conjunctiva: Present: Normal Mouth: Present: Moist Mucous Membranes Pharnyx: Present: Normal. No: ERYTHEMA, EXUDATE Neck: Present: Normal Range of Motion Respiratory/Chest: Present: Clear to Auscultation, Good Air Exchange. No: Respiratory Distress, Accessory Muscle Use Cardiovascular: Present: Regular Rate and Rhythm, Normal S1, S2. No: Murmurs Abdomen: Present: Tenderness (mild ttp in the epigastric area), Distention, Normal Bowel Sounds. No: Peritoneal Signs Back: Present: Normal Inspection Upper Extremity: Present: Normal Inspection. No: Cyanosis, Edema Lower Extremity: Present: Normal Inspection. No: Edema Neurological: Present: GCS=15, CN II-XII Intact, Speech Normal Skin: Present: Warm, Dry, Normal Color. No: Rashes Psychiatric: Present: Alert, Oriented x 3, Normal Insight, Normal Concentration Medical Decision Making ED Course and Treatment: 01/15/17 17:06 Impression: A 56 year old male with abdominal pain radiating to chest. Patient notes shortness of breath, cough and vomiting. Differential: gastritis vs UGIB vs esophagitis vs Boerhaave's Plan: -- Chest xray -- EKG -- Labs -- Urinalysis -- Pepcid and Zofran -- Reassess and disposition Progress Notes: EKG shows NSR at 90 BPM with normal axis, normal intervals, no ST/T changes. Interpreted by me. 01/15/17 22:36 Patient with stable low Hgb; guaiac negative. Reports mild-moderate improvement after pepcid and zofran. Symptoms still present however. EKG is unremarkable. Will order CT c/a/p and will need further observation for Gi evaluation. Discussed with hospitalist, Dr. Whitney. - Lab Interpretations Lab Results: 01/15/17 17:25 01/15/17 17:25 Lab Results 01/15/17 18:00: Urine Opiates Screen Negative, Urine Methadone Screen Negative, Ur Barbiturates Screen Negative, Ur Phencyclidine Scrn Negative, Ur Amphetamines Screen Negative, U Benzodiazepines Scrn Positive H, U Oth Cocaine Metabols Negative, U Cannabinoids Screen Negative 01/15/17 18:00: Urine Color Yellow, Urine Appearance Clear, Urine pH 6.0, Ur Specific Lucinda <= 1.005, Urine Protein Negative, Urine Glucose (UA) Negative, Urine Ketones Negative, Urine Blood Negative, Urine Nitrate Negative, Urine Bilirubin Negative, Urine Urobilinogen 0.2, Ur Leukocyte Esterase Negative 01/15/17 17:25: Alcohol, Quantitative 266 H 01/15/17 17:25: Sodium 129 L, Chloride 88 L, Potassium 3.1 L, Carbon Dioxide 24 , Anion Gap 20, BUN 6 L, Creatinine 0.6 L, Est GFR ( Amer) > 60, Est GFR (Non-Af Amer) > 60, Random Glucose 119 H, Calcium 8.0 L, Magnesium 1.6 L, Total Bilirubin 0.9, Direct Bilirubin 0.6 H, AST 67 H D, ALT 48, Alkaline Phosphatase 120, Lactate Dehydrogenase 564, Total Creatine Kinase 129, Troponin I 0.02 D, NT-Pro-B Natriuret Pep 30.5, Total Protein 7.6, Albumin 4.2, Globulin 3.4, Albumin/Globulin Ratio 1.2, Lipase 426 H 01/15/17 17:25: pO2 67 H, VBG pH 7.42, VBG pCO2 43.0, VBG HCO3 27.9, VBG Total CO2 29.2 H, VBG O2 Sat (Calc) 93.8 H, VBG Base Excess 2.9 H, VBG Potassium 3.1 L , Sodium 127.0 L, Chloride 90.0 L, Glucose 121 H, Lactate 2.1, FiO2 21.0, Venous Blood Potassium 3.1 L 01/15/17 17:25: PT 13.6 H, INR 1.24 H, APTT 30.3 01/15/17 17:25: WBC 9.0 D, RBC 4.02, Hgb 9.4 L, Hct 29.2 L, MCV 72.6 L, MCH 23.4 L, MCHC 32.2, RDW 17.3 H, Plt Count 144, MPV 8.6, Gran % 79.6 H, Lymph % ( Auto) 12.1 L, Sawyer % (Auto) 7.7 H, Eos % (Auto) 0.2 L, Baso % (Auto) 0.4, Gran # 7.17 H, Lymph # 1.1 L, Sawyer # 0.7 H, Eos # 0.0, Baso # 0.04 I have reviewed the lab results: Yes - RAD Interpretation Radiology Orders: 01/15/17 17:08 CHEST PORTABLE [RAD] Stat 01/15/17 20:05 ABD & PELVIS IV CONTRAST ONLY [CT] Stat - Medication Orders Current Medication Orders: Albuterol/Ipratropium (Duoneb 3 Mg/0.5 Mg (3 Ml) Ud) 3 ml IH PRN PRN PRN Reason: Shortness of Breath Stop: 01/15/17 23:01 Potassium Chloride (Potassium Chloride 10 Meq/100 Ml) 10 meq in 100 mls @ 100 mls/hr IVPB Q2H SOPHIA Stop: 01/16/17 00:44 Last Admin: 01/15/17 22:32 Dose: 100 mls/hr eMAR Start Stop Document 01/15/17 22:32 OCS (Rec: 01/15/17 22:32 OCS [id number]) Intravenous Solution Start Date 01/15/17 Start Time 22:32 Multivitamins/Vitamin C 10 ml/Thiamine HCl 100 mg/ Folic Acid 1 mg/ Sodium Chloride 1,011.2 mls @ 100 mls/hr IV .Q10H7M ONE Stop: 01/16/17 08:23 Lorazepam (Ativan) 1 mg IVP Q4 PRN; Protocol PRN Reason: Symptoms of alcohol withdrawl Pantoprazole Sodium (Protonix Inj) 40 mg IVP Q12H SOPHIA Discontinued Medications Famotidine (Pepcid) 20 mg IVP STAT STA Stop: 01/15/17 16:54 Last Admin: 01/15/17 16:58 Dose: 20 mg IVP Administration Document 01/15/17 16:58 CNR (Rec: 01/15/17 16:58 CNR [id number] Charges for Administration # of IVP Administrations 1 Folic Acid 1 mg/ Thiamine HCl 100 mg/ Multivitamins/Vitamin C 10 ml/ Magnesium Sulfate 2 gm/ Dextrose/Sodium Chloride 1,015.2 mls @ 500 mls/hr IV ONCE ONE Stop: 01/15/17 20:16 Last Admin: 01/15/17 18:55 Dose: 500 mls/hr eMAR Start Stop Document 01/15/17 18:55 CNR (Rec: 01/15/17 18:59 CNR [facility] [id number]) Intravenous Solution Start Date 01/15/17 Start Time 18:59 Levalbuterol HCl (Xopenex) 1.25 mg IH STAT STA Stop: 01/15/17 18:17 Last Admin: 01/15/17 18:45 Dose: 1.25 mg Ondansetron HCl (Zofran Inj) 4 mg IVP STAT STA Stop: 01/15/17 16:54 Last Admin: 01/15/17 16:58 Dose: 4 mg IVP Administration Document 01/15/17 16:58 CNR (Rec: 01/15/17 16:58 [facility]NR [id number] Charges for Administration # of IVP Administrations 1 Pantoprazole Sodium (Protonix Inj) 40 mg IVP ONCE STA Stop: 01/15/17 20:08 Last Admin: 01/15/17 20:17 Dose: 40 mg IVP Administration Document 01/15/17 20:17 OCS (Rec: 01/15/17 20:18 OCS [id number]) Charges for Administration # of IVP Administrations 1 - Scribe Statement The provider has reviewed the documentation as recorded by the Rahibalvarez Brown Provider Scribe Attestation: All medical record entries made by the Scribe were at my direction and personally dictated by me. I have reviewed the chart and agree that the record accurately reflects my personal performance of the history, physical exam, medical decision making, and the department course for this patient. I have also personally directed, reviewed, and agree with the discharge instructions and disposition. Disposition/Present on Arrival - Present on Arrival Any Indicators Present on Arrival: No History of DVT/PE: No History of Uncontrolled Diabetes: No Urinary Catheter: No History of Decub. Ulcer: No History Surgical Site Infection Following: None - Disposition Have Diagnosis and Disposition been Completed?: Yes Diagnosis: Chest pain, Coffee ground emesis Disposition: HOSPITALIZED Disposition Time: 21:25 Patient Plan: Observation Condition: FAIR
[2017-01-15 17:42] LABS: VENOUS BLOOD GAS BASE EXCESS 2.9 mmol/L (0.0-2.0); VENOUS BLOOD PH 7.42 (7.32-7.43)
[2017-01-15 17:51] LABS: ALB/GLOB RATIO 1.2 (1.1-1.8); ALKALINE PHOSPHATASE 120 U/L (38-126); ALT/SGPT 48 U/L (7-56); AST/SGOT 67 U/L (17-59); BILIRUBIN,DIRECT 0.6 mg/dL (0.0-0.4); BILIRUBIN,TOTAL 0.9 mg/dL (0.2-1.3); BLOOD UREA NITROGEN 6 mg/dL (7-21); CARBON DIOXIDE 24 mmol/L (21-33); CHLORIDE 88 mmol/L (98-107); GFR AFRICAN-AMERICAN > 60; GLUCOSE,RANDOM 119 mg/dL (70-110); INR 1.24 (0.93-1.08); LIPASE 426 U/L (23-300); MAGNESIUM 1.6 mg/dL (1.7-2.2); PARTIAL THROMBOPLASTIN TIME 30.3 Seconds (25.1-36.5); POTASSIUM 3.1 mmol/L (3.6-5.0); SODIUM 129 mmol/L (132-148); TOTAL PROTEIN 7.6 g/dL (5.8-8.3)
[2017-01-15 18:01] LABS: TROPONIN I 0.02 ng/mL
[2017-01-15 18:03] LABS: BASO # 0.04 K/mm3 (0.0-2.0); BASO % 0.4 % (0.0-3.0); EOS % 0.2 % (1.5-5.0); GRAN # 7.17 (1.4-6.5); GRAN % 79.6 % (50.0-68.0); HEMATOCRIT 29.2 % (42.0-52.0); LYMPH # 1.1 (1.2-3.4); LYMPH % 12.1 % (22.0-35.0); MEAN CELL VOLUME 72.6 fl (80.0-105.0); MEAN CORPUSCULAR HEMOGLOBIN 23.4 pg (25.0-35.0); MEAN CORPUSCULAR HGB CONC 32.2 g/dl (31.0-37.0); MEAN PLATELET VOLUME 8.6 fl (7.0-11.0); MONO # 0.7 (0.1-0.6); MONO % 7.7 % (1.0-6.0); RED CELL DISTRIBUTION WIDTH 17.3 % (11.5-14.5)
[2017-01-15] MEDS ORDERED: Folic Acid 1 MG, Thiamine 100 MG, Multivitamin (MVI) 10 ML, Magnesium Sulfate 2 GM in D... IV ONE (18:15)
[2017-01-15] MEDS ORDERED: Levalbuterol 1.25 MG/3 ML Inhal Soln UD IH STA (18:16)
[2017-01-15 18:33] LABS: URINE BILIRUBIN NEGATIVE (NEGATIVE); URINE BLOOD NEGATIVE (NEGATIVE); URINE GLUCOSE (UA) NEGATIVE (NEGATIVE); URINE KETONE NEGATIVE (NEGATIVE); URINE LEUKOCYTE ESTERASE NEGATIVE Leu/uL (NEGATIVE); URINE PROTEIN NEGATIVE mg/dL (<30 mg/dL); URINE UROBILINOGEN 0.2 E.U./dL (<1 E.U./dL)
[2017-01-15 18:34] LABS: URINE APPEARANCE CLEAR (CLEAR); URINE COLOR YELLOW (YELLOW)
[2017-01-15] MEDS ORDERED: Iohexol 350 MG/100 ML VIAL ONE (21:05)
[2017-01-15 21:38] LABS: VENOUS BLOOD GAS BASE EXCESS 2.6 mmol/L (0.0-2.0); VENOUS BLOOD PH 7.43 (7.32-7.43)
[2017-01-15] MEDS ORDERED: Multivitamin (MVI) 10 ML, Thiamine 100 MG, Folic Acid 1 MG in Sodium Chloride 0.9% 1,00... IV ONE (22:17)
[2017-01-15] MEDS ORDERED: Albuterol-Ipratrop 3 mg / 0.5 (3 ml) UD IH PRN (22:21)
--- NOTE | 2017-01-15 22:50 | CP.PCM.HP ---
<Oskar Ragland - Last Filed: 01/16/17 06:15> History of Present Illness - History of Present Illness History of Present Illness: CC: Intractable vomiting and chest pain This is a 56 year old male with the past medical history of erosive esophagitis , chromic pancreatitis, hepatitis C, COPD, and microcytic anemia who comes in complaining of coffee ground emesis and chest pain for the past 3 days. The patient states he reports four to five episodes of emesis per day. The patient also reports the chest pain started in conjunction with emesis. He states its located sternally and radiates to the epigastrium, right chest, and the back. The patient says he took folic after the first episode however it didn't improve the symptoms. The patient reports lightheadedness, shortness of breath, dizziness, and headache in conjunction with the symptoms. The patient has a 20 + year history of alcohol abuse. He reports drinking over 6 24 oz beers daily and sometimes vodka. The patient denies any syncopal episodes, constipation, sore throat, sick contacts, numbness or tingling in the extremities, changes in vision, easy brusing, hearing loss, fevers, chills, or any other complaints. Past medical history: see HPI Medications: Denies Past surgical history: 2 Hernia repairs( Right groin) Allergies: Penicillins Social history: Drinks 6 24 oz beers a day for over 20 years. Also admits to occasional vodka consumptions. Denies smoking or illicit drug usage. 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 Present on Admission - Present on Admission Any Indicators Present on Admission: No Review of Systems - Constitutional Constitutional: absent: Anorexia, Chills, Headache, Night Sweats, Snoring, Weakness - EENT Eyes: absent: Blind Spots, Blurred Vision, Diplopia, Discharge, Sees Flashes, Other Visual Disturbances, Loss of Vision Ears: Dizziness. absent: Decreased Hearing Nose/Mouth/Throat: absent: Epistaxis, Nasal Congestion, Nasal Trauma, Nose Pain , Bleeding Gums, Dry Mouth, Sore Throat - Cardiovascular Cardiovascular: Chest Pain, Chest Pain with Activity, Dyspnea, Lightheadedness. absent: Claudication, Diaphoresis, Edema, Irregular Heart Rhythm, Pain Radiating to Arm/Neck/Jaw, Orthopnea, Palpitations, Pedal Edema, Syncope - Respiratory Respiratory: absent: Hemoptysis, Stridor, Chest Congestion, Pain with Coughing - Gastrointestinal Gastrointestinal: Coffee Ground Emesis, Diarrhea, Hematemesis, Nausea, Vomiting. absent: Cramping, Hematochezia, Melena - Genitourinary Genitourinary: absent: Change in Urinary Stream, Hematuria, Pyuria, Nocturia - Musculoskeletal Musculoskeletal: absent: Abnormal Gait, Muscle Weakness, Myalgias, Numbness - Integumentary Integumentary: absent: Changing Lesions, Dry Skin, Rash, Swelling - Neurological Neurological: absent: Abnormal Gait, Abnormal Hearing, Behavioral Changes, Burning Sensations - Psychiatric Psychiatric: Anxiety. absent: Change in Appetite, Depression, Difficulty Concentrating, Panic Attacks - Endocrine Endocrine: absent: Change in Body Appearance, Polydipsia, Polyphagia, Polyuria - Hematologic/Lymphatic Hematologic: absent: Easy Bleeding, Easy Bruising Past Patient History - Infectious Disease Hx of Infectious Diseases: None - Tetanus Immunizations Tetanus Immunization: Unknown - Past Medical History & Family History Past Medical History?: Yes - Past Social History Smoking Status: Current Some Days Smoker - CARDIAC Hx Cardiac Disorders: Yes Hx Hypertension: Yes (DENIES) - PULMONARY Hx Chronic Obstructive Pulmonary Disease (COPD): Yes - NEUROLOGICAL HX Cerebrovascular Accident: No - HEENT Hx HEENT Problems: No - RENAL Hx Chronic Kidney Disease: No - ENDOCRINE/METABOLIC Hx Diabetes Mellitus Type 2: Yes - HEMATOLOGICAL/ONCOLOGICAL Hx Blood Disorders: Yes - INTEGUMENTARY Hx Dermatological Problems: Yes Other/Comment: GENERALIZED MULTIPLE REDDENED RASH TO WHOLE FACE AND CHEST,LOWER PART OF ABDOMINAL AREA. ALSO HAS GENERALIZED INSECT BITES ALL OVER ARMS AND LEGS AND BACK AND BODY. TATTOOS ALL OVER ARMS BACK AND LEGS. - MUSCULOSKELETAL/RHEUMATOLOGICAL Hx Musculoskeletal Disorders: Yes Hx Falls: Yes - GASTROINTESTINAL Hx Gastrointestinal Disorders: Yes (GI BLEED) Hx Gall Bladder Disease: Yes Hx Pancreatitis: Yes Other/Comment: X2 HERNIA REPAIR acid reflux - GENITOURINARY/GYNECOLOGICAL Hx Genitourinary Disorders: Yes (ORCHIECTOMY) - PSYCHIATRIC Hx Psychophysiologic Disorder: Yes Hx Anxiety: Yes Hx Depression: Yes Hx Substance Use: No (DENIES) - SURGICAL HISTORY Hx Cardiac Catheterization: No Hx Coronary Stent: No Hx Musculoskeletal Surgery: Yes (Left hand surgery DENIES) - ANESTHESIA Hx Anesthesia: Yes Hx Anesthesia Reactions: No Hx Malignant Hyperthermia: No Meds Allergies/Adverse Reactions: Allergies Allergy/AdvReac Type Severity Reaction Status Date / Time Penicillins Allergy RASH Verified 10/22/16 00:38 Physical Exam - Constitutional Appears: No Acute Distress - Head Exam Head Exam: ATRAUMATIC, NORMAL INSPECTION, NORMOCEPHALIC - Eye Exam Eye Exam: EOMI, Normal appearance, PERRL. absent: Periorbital tenderness - ENT Exam ENT Exam: Mucous Membranes Moist, Normal Exam, Normal Oropharynx. absent: TM's Normal Bilaterally - Neck Exam Neck exam: Positive for: Normal Inspection. Negative for: Lymphadenopathy, Thyromegaly - Respiratory Exam Respiratory Exam: Clear to Auscultation Bilateral, NORMAL BREATHING PATTERN. absent: Accessory Muscle Use, Chest Wall Tenderness, Prolonged Expiratory Phase - Cardiovascular Exam Cardiovascular Exam: REGULAR RHYTHM, +S1, +S2. absent: Gallop, Rubs - GI/Abdominal Exam GI & Abdominal Exam: Normal Bowel Sounds, Soft, Tenderness. absent: Distended, Hypoactive Bowel Sounds, Organomegaly Additional comments: right lower quadrant tenderness to palpation - Extremities Exam Extremities exam: Positive for: normal inspection. Negative for: full ROM, pedal edema - Back Exam Back exam: NORMAL INSPECTION. absent: CVA tenderness (L), CVA tenderness (R), paraspinal tenderness - Neurological Exam Neurological exam: Alert, CN II-XII Intact, Oriented x3, Reflexes Normal - Psychiatric Exam Psychiatric exam: Normal Affect, Normal Mood - Skin Skin Exam: Dry Results - Vital Signs Recent Vital Signs: Last Vital Signs Temp 98.0 F 01/15/17 16:49 Pulse 87 01/15/17 19:00 Resp 16 01/15/17 19:00 BP 129/82 01/15/17 19:00 Pulse Ox 94 L 01/15/17 19:00 - Labs Result Diagrams: 01/15/17 17:25 01/15/17 17:25 Labs: Laboratory Results - last 24 hr 01/15/17 21:32 pO2 176 H VBG pH 7.43 VBG pCO2 41.0 VBG HCO3 27.2 VBG Total CO2 28.5 H VBG O2 Sat (Calc) 99.3 H VBG Base Excess 2.6 H VBG Potassium 2.7 L Sodium 131.0 L Chloride 96.0 L Glucose 191 H Lactate 1.4 FiO2 21.0 Venous Blood Potassium 2.7 L Assessment & Plan - Assessment and Plan (Free Text) Assessment: This is a 56 year old male with the past medical history of erosive esophagitis , chronic pancreatitis, hepatitis C, COPD, and microcytic anemia who is being admitted for intractable coffee ground emesis and chest pain. Plan: 1. Hematemesis(r/o GI bleed) -hx or erosive esophagitis. Last EGD 02/21/2016 showed extensive grade D erosive esophagitis -GI consulted. Will. f/u with recs. -Hemoglobin stable 9.4.H&H q4h. Type and screen. -NPO, IV protonix 40mg Q12HR. -IV fluids (Banana bag) -Maintain euvelemia, MAP>65. 2.Chest pain likely (2/2 to hematemesis/chronic pancreatitis) -EKG in the NSR at 90 HR. Previous ECHO showed a normal ef of 67%. mild AR/PI. -Troponin (-)x1. Will trend one more. -Repeat EKG in the morning. -Pain likely 2/2 to vomit and pancreatitis. Lipase upon admission 426. 3.Pancreatitis(?acute) -Elevated lipase 426 upon admission. hx of chronic pancreatitis -Elevation in lipase likely 2/2 to chronic etoh abuse. -NPO 2.ETOH -Elevated Lipase 426 upon admission. Elevated alcohol 266 upon admission. -Patient currently in withdrawals. -Ativan 1gm q4h -CIWA protocols -Fall protocols. Aspiration protocols -Banana bag 3.COPD -Duonebs prn -NC 2L, maintain SPO2 >90. GI PPX -Protonix DVT/PE ppx -SCD'S <Franc Whitney - Last Filed: 01/17/17 02:29> Results - Vital Signs Recent Vital Signs: Last Vital Signs Temp 99.1 F 01/16/17 16:00 Pulse 103 H 01/17/17 02:00 Resp 19 01/16/17 16:00 BP 135/95 H 01/16/17 16:00 Pulse Ox 93 L 01/16/17 16:00 - Labs Result Diagrams: 01/16/17 12:00 01/16/17 06:39 Labs: Laboratory Results - last 24 hr 01/16/17 01/16/17 01/16/17 06:20 06:39 06:39 WBC 6.2 D RBC 4.08 Hgb 9.4 L Hct 30.2 L MCV 74.0 L MCH 23.0 L MCHC 31.1 RDW 17.6 H Plt Count 108 L MPV 8.8 Gran % 75.7 H Lymph % (Auto) 12.0 L Dickenson % (Auto) 11.1 H Eos % (Auto) 1.0 L Baso % (Auto) 0.2 Gran # 4.66 Lymph # 0.7 L Dickenson # 0.7 H Eos # 0.1 Baso # 0.01 Sodium 138 Potassium 3.6 Chloride 98 Carbon Dioxide 28 Anion Gap 16 BUN 6 L Creatinine 0.8 Est GFR ( Amer) > 60 Est GFR (Non-Af Amer) > 60 Random Glucose 98 Calcium 8.2 L Phosphorus 3.0 Magnesium 2.0 Total Bilirubin 1.3 AST 53 ALT 46 Alkaline Phosphatase 114 Lactate Dehydrogenase Total Creatine Kinase Troponin I 0.02 Total Protein 7.3 Albumin 4.0 Globulin 3.3 Albumin/Globulin Ratio 1.2 Blood Type O POSITIVE Antibody Screen Negative BBK History Checked Patient has bt 01/16/17 01/16/17 12:00 16:20 WBC 5.8 RBC 4.14 Hgb 9.6 L Hct 31.0 L MCV 74.9 L MCH 23.2 L MCHC 31.0 RDW 17.6 H Plt Count 120 MPV 9.0 Gran % 76.5 H Lymph % (Auto) 12.3 L Dickenson % (Auto) 9.7 H Eos % (Auto) 1.2 L Baso % (Auto) 0.3 Gran # 4.43 Lymph # 0.7 L Dickenson # 0.6 Eos # 0.1 Baso # 0.02 Sodium Potassium Chloride Carbon Dioxide Anion Gap BUN Creatinine Est GFR ( Amer) Est GFR (Non-Af Amer) Random Glucose Calcium Phosphorus Magnesium Total Bilirubin AST ALT Alkaline Phosphatase Lactate Dehydrogenase 422 Total Creatine Kinase 75 Troponin I 0.02 Total Protein Albumin Globulin Albumin/Globulin Ratio Blood Type Antibody Screen BBK History Checked Attending/Attestation - Attestation I have personally seen and examined this patient.: Yes I have fully participated in the care of the patient.: Yes I have reviewed all pertinent clinical information: Yes Notes (Text): 01/17/17 02:28 Patient was seen when he was in bed # 372-01. Agree with history, physical examination, assessment and plan.
--- NOTE | 2017-01-15 23:52 | CT ---
EXAM: CT Abdomen and Pelvis With Intravenous Contrast CLINICAL HISTORY: 56 years old, male; Pain; Abdominal pain; Additional info: Abdominal pain, chest pain, vomiting TECHNIQUE: Axial computed tomography images of the abdomen and pelvis with intravenous contrast. All CT scans at this facility use one or more dose reduction techniques, viz.: automated exposure control; ma/kV adjustment per patient size (including targeted exams where dose is matched to indication; i.e. head); or iterative reconstruction technique. Coronal and sagittal reformatted images were created and reviewed. CONTRAST: 93 mL of OMNI 350 administered intravenously. COMPARISON: CT - ABD PELVIS IV CONTRAST ONLY 2016-08-28 08:35 FINDINGS: Limitations: Motion artifact - moderate. Lower thorax: Small hiatal hernia. Moderate mural thickening of distal esophagus. ABDOMEN: Liver: Fatty infiltration. Gallbladder and bile ducts: Calcified gallstones. No ductal dilation. Pancreas: No ductal dilation. No mass. Spleen: No splenomegaly. Adrenals: Stable appearance of adrenal glands. Kidneys and ureters: No mass. No hydronephrosis. Stomach and bowel: No definite mural thickening. No obstruction. Appendix: Normal caliber. No inflammation. PELVIS: Bladder: Unremarkable. Reproductive: Unremarkable as visualized. ABDOMEN and PELVIS: Intraperitoneal space: No significant fluid collection. No free air. Bones/joints: Mild degenerative changes of hips and spine. No acute fracture. Soft tissues: Postsurgical changes of RIGHT inguinal region. Vasculature: Mild varices within upper abdomen. Mild atherosclerotic disease. No aneurysm. Lymph nodes: Few subcentimeter short axis lymph nodes within upper abdomen, stable. IMPRESSION: 1. Esophageal wall thickening. Clinical correlation is needed. 2. Incidental/non-acute findings are described above.
[2017-01-16] MEDS ORDERED: Magnesium Sulfate 1 gm in D5W 1 GM/100 ML BAG IVPB ONE ×2 (00:22→05:51)
[2017-01-16 06:27] VITALS: BMI 31.4
[2017-01-16 06:58] LABS: BASO # 0.01 K/mm3 (0.0-2.0); BASO % 0.2 % (0.0-3.0); EOS # 0.1 (0.0-0.7); GRAN # 4.66 (1.4-6.5); GRAN % 75.7 % (50.0-68.0); HEMATOCRIT 30.2 % (42.0-52.0); LYMPH # 0.7 (1.2-3.4); MEAN CORPUSCULAR HGB CONC 31.1 g/dl (31.0-37.0); MEAN PLATELET VOLUME 8.8 fl (7.0-11.0); MONO # 0.7 (0.1-0.6); MONO % 11.1 % (1.0-6.0); RED CELL DISTRIBUTION WIDTH 17.6 % (11.5-14.5); WHITE BLOOD COUNT 6.2 10^3/ul (4.5-11.0)
[2017-01-16 07:02] LABS: ALB/GLOB RATIO 1.2 (1.1-1.8); ALKALINE PHOSPHATASE 114 U/L (38-126); ALT/SGPT 46 U/L (7-56); AST/SGOT 53 U/L (17-59); BILIRUBIN,TOTAL 1.3 mg/dL (0.2-1.3); BLOOD UREA NITROGEN 6 mg/dL (7-21); CALCIUM 8.2 mg/dL (8.4-10.5); CARBON DIOXIDE 28 mmol/L (21-33); CHLORIDE 98 mmol/L (98-107); GFR AFRICAN-AMERICAN > 60; GLUCOSE,RANDOM 98 mg/dL (70-110); POTASSIUM 3.6 mmol/L (3.6-5.0); SODIUM 138 mmol/L (132-148); TOTAL PROTEIN 7.3 g/dL (5.8-8.3)
[2017-01-16 07:05] LABS: TROPONIN I 0.02 ng/mL
--- NOTE | 2017-01-16 09:00 | CARD ---
APPROVED REPORT EKG Measurement Heart [id number] <Conclusion> Normal sinus rhythm Normal ECG No change
--- NOTE | 2017-01-16 09:20 | CP.PCM.PN ---
<CourtneywinstonAman - Last Filed: 01/16/17 13:54> Subjective - Date & Time of Evaluation Date of Evaluation: 01/16/17 Time of Evaluation: 09:19 - Subjective Subjective: Patient seen and examined at bedside this AM. Patient was admitted overnight for coffee ground emesis, chest pain, and concern for alcohol intoxication/ withdrawl. Patient reports nausea vomiting with continued chest discomfort he associates with his vomiting episodes. Patient indicates his last drink was yesterday, reports drinking up to 10 beers on a regular basis. Patient denies any auditory or visual hallucinations at this time. He indicates he is mildly agitated in comparison from previous episodes where he had been admitted after alcohol intoxication with concern for withdrawl. Patient reports he has shortness of breath at rest and with exertion. Patient denies abdominal pain, change in bowel movements, fever, chills. Patient is educated and counseled on alcohol withdrawl symptoms and appropriate actions to take when feeling signs and symptoms and is understanding. Objective - Vital Signs/Intake and Output Vital Signs (last 24 hours): Temp Pulse Resp BP Pulse Ox 98.1 F 102 H 20 135/76 94 L 01/16/17 02:15 01/16/17 02:15 01/16/17 02:15 01/16/17 02:15 01/15/17 19:00 Intake and Output: 01/16/17 01/16/17 06:59 18:59 Intake Total 0 Output Total 475 Balance -475 - Medications Medications: Current Medications Albuterol/Ipratropium (Duoneb 3 Mg/0.5 Mg (3 Ml) Ud) 3 ml IH Q4H PRN PRN Reason: Shortness of Breath Chlordiazepoxide (Librium) 25 mg PO Q6 SOPHIA PRN Reason: Protocol Multivitamins/Vitamin C 10 ml/ (Dextrose/Sodium Chloride) 1,010 mls @ 100 mls/ hr IV ONCE ONE Stop: 01/16/17 22:05 Lorazepam (Ativan) 1 mg IVP Q4 PRN; Protocol PRN Reason: Symptoms of alcohol withdrawl Last Admin: 01/16/17 08:38 Dose: 1 mg Ondansetron HCl (Zofran Inj) 4 mg IVP Q6H PRN PRN Reason: Nausea/Vomiting Last Admin: 01/16/17 08:27 Dose: 4 mg Pantoprazole Sodium (Protonix Inj) 40 mg IVP Q12H SOPHIA Last Admin: 01/16/17 06:58 Dose: 40 mg - Labs Labs: 01/16/17 06:39 01/16/17 06:39 PT 13.6 SECONDS (9.4-12.5) H 01/15/17 17:25 INR 1.24 (0.93-1.08) H 01/15/17 17:25 APTT 30.3 Seconds (25.1-36.5) 01/15/17 17:25 - Constitutional Appears: Other (patient appears slightly unkept, intoxicated, with mild agitation in form of mild tremor of upper extremities ) - Head Exam Head Exam: ATRAUMATIC, NORMAL INSPECTION - Eye Exam Eye Exam: EOMI, PERRL - ENT Exam ENT Exam: Mucous Membranes Dry - Respiratory Exam Respiratory Exam: Clear to Ausculation Bilateral, NORMAL BREATHING PATTERN - Cardiovascular Exam Cardiovascular Exam: Tachycardia, REGULAR RHYTHM, +S1, +S2 - GI/Abdominal Exam GI & Abdominal Exam: Soft, Tenderness (mid epigastric region - mild), Normal Bowel Sounds - Extremities Exam Extremities Exam: Full ROM, Normal Capillary Refill. absent: Calf Tenderness - Back Exam Back Exam: NORMAL INSPECTION. absent: CVA tenderness (L), CVA tenderness (R) - Neurological Exam Neurological Exam: Alert, Awake, CN II-XII Intact Neuro motor strength exam: Left Upper Extremity: 4, Right Upper Extremity: 4, Left Lower Extremity: 4, Right Lower Extremity: 4 - Psychiatric Exam Psychiatric exam: Normal Affect. absent: Suicidal Ideation Additional comments: slight intoxication - Skin Skin Exam: Dry, Intact, Normal Color Additional comments: multiple tattoos noted Assessment and Plan - Assessment and Plan (Free Text) Assessment: Patient is a 56 year old male with the past medical history of erosive esophagitis grade D, chronic pancreatitis, hepatitis C, COPD, and microcytic anemia who comes in complaining of coffee ground emesis and chest pain for the past 3 days. Patient was admitted for evaluation of coffee ground emesis, chest pain and monitoring for EOTH withdrawl. Plan: 1. Hematemesis - Likely secondary to alcohol consumption in the setting of history of grade D erosive esophagitis(EGD 02/21/2016) - Coffee ground emesis on admission, today reported vomiting episodes of clear liquid - Patient has been NPO since admission - Protonix, FA, MV - Platelet count noted, will continue to monitor - Gastroenterology(Dr. Kidd) consulted, jacoby moses indicates possible scope will need outpatient follow up - H/H stable, continue to monitor 2. Chest Pain - Likely secondary to pancreatitis vs. history of erosive esophagitis vs. multiple episodes of emesis - Troponin negative x2, will continue to monitor and trend - EKG on admission showing NSR with no acute ST segment depression/elevation or significant changes from previous EKG - Last known ECHO in 04/2016 shown to have EF of 67% - Will continue to monitor for symptoms 3. Chronic pancreatitis - History of pancreatitis, Lipase on admission 426 - Secondary to chronic ETOH abuse - 4. ETOH abuse and withdrawl - Alcohol level of 266 upon admission - Ativan 1gm Q4H prn, has required 2 doses - Librium 25mg Q6H, LFT within normal range - CIWA protocol - FA, MV - Fall and aspiration protocol 5. Hx of COPD - Duonebs prn - NC2L prn, maintain goal SaO2 of 88-92% PPX GI - Protonix DVT - SCDs, no AC in setting of suspected GI bleed Case and plan discussed with attending <Dale Narvaez - Last Filed: 01/16/17 15:30> Objective - Vital Signs/Intake and Output Vital Signs (last 24 hours): Temp Pulse Resp BP Pulse Ox 97.7 F 94 H 18 126/80 92 L 01/16/17 09:23 01/16/17 09:23 01/16/17 09:23 01/16/17 09:23 01/16/17 09:23 Intake and Output: 01/16/17 01/16/17 06:59 18:59 Intake Total 0 480 Output Total 475 600 Balance -475 -120 - Medications Medications: Current Medications Albuterol/Ipratropium (Duoneb 3 Mg/0.5 Mg (3 Ml) Ud) 3 ml IH Q4H PRN PRN Reason: Shortness of Breath Chlordiazepoxide (Librium) 25 mg PO Q6 SOPHIA PRN Reason: Protocol Last Admin: 01/16/17 11:52 Dose: 25 mg Multivitamins/Vitamin C 10 ml/ (Dextrose/Sodium Chloride) 1,010 mls @ 100 mls/ hr IV ONCE ONE Stop: 01/16/17 22:05 Last Admin: 01/16/17 11:53 Dose: 100 mls/hr Lorazepam (Ativan) 1 mg IVP Q4 PRN; Protocol PRN Reason: Symptoms of alcohol withdrawl Last Admin: 01/16/17 11:53 Dose: 1 mg Ondansetron HCl (Zofran Inj) 4 mg IVP Q6H PRN PRN Reason: Nausea/Vomiting Last Admin: 01/16/17 08:27 Dose: 4 mg Pantoprazole Sodium (Protonix Inj) 40 mg IVP Q12H SOPHIA Last Admin: 01/16/17 06:58 Dose: 40 mg - Labs Labs: 01/16/17 12:00 01/16/17 06:39 PT 13.6 SECONDS (9.4-12.5) H 01/15/17 17:25 INR 1.24 (0.93-1.08) H 01/15/17 17:25 APTT 30.3 Seconds (25.1-36.5) 01/15/17 17:25 Attending/Attestation - Attestation I have personally seen and examined this patient.: Yes I have fully participated in the care of the patient.: Yes I have reviewed all pertinent clinical information, including history, physical exam and plan: Yes Notes (Text): 01/16/17 15:26 56 year old male with past medical history of erosive esophagitis, chronic pancreatitis, chronic ETOH abuse, and COPD who presented with complaint of coffee ground emesis, chest pain and alcohol withdrawal. Continue with protonix and zofran prn. Monitor cbc closely. GI evaluation was appreciated who advanced diet to liquids. Continue with banana bag and librium/ativan for withdrawal symptoms. He was counselled on alcohol abstinence. Serial cardiac enzymes were negative and ACS was ruled out. Dale Narvaez MD Hospitalist.
[2017-01-16] MEDS ORDERED: Multivitamin (MVI) 10 ML in Dextrose 5%/0.45% NS 1,000 ML IV ONE (12:00)
[2017-01-16 12:18] LABS: BASO # 0.02 K/mm3 (0.0-2.0); BASO % 0.3 % (0.0-3.0); EOS # 0.1 (0.0-0.7); EOS % 1.2 % (1.5-5.0); GRAN # 4.43 (1.4-6.5); GRAN % 76.5 % (50.0-68.0); LYMPH # 0.7 (1.2-3.4); LYMPH % 12.3 % (22.0-35.0); MEAN CELL VOLUME 74.9 fl (80.0-105.0); MEAN CORPUSCULAR HEMOGLOBIN 23.2 pg (25.0-35.0); MONO # 0.6 (0.1-0.6); MONO % 9.7 % (1.0-6.0); RED CELL DISTRIBUTION WIDTH 17.6 % (11.5-14.5); WHITE BLOOD COUNT 5.8 10^3/ul (4.5-11.0)
--- NOTE | 2017-01-16 12:44 | CP.PCM.CON ---
<Shruthi Aly - Last Filed: 01/16/17 12:28> History of Present Illness - History of Present Illness History of Present Illness: Seen and examined at the bedside earlier this morning, the chart was reviewed. Request for GI consult is for hematemesis. HPI: This is a 56-year-old female with a past medical history of chronic EtOH, erosive esophagitis, chronic pancreatitis, hepatitis C, with multiple admission with complaints of coffee ground emesis and chest pain for 3 days. the patient does report he is actively drinking, has last intake was yesterday. He drinks over 624 ounce beers daily and occasional vodka. He denies episodes of diarrhea , melena or bright red blood per rectum. Alcohol Quant: was 266. He does complain of epigastric pain that radiates to the back positive, the patient was last had endoscopy on April/2016 found to have esophageal ulcerations, he was last admitted with same complaint in November/2016 and recommended to go for upper endoscopy and colonoscopy. the patient has not followed up. He reports that he takes daily folate acid but is unsure regarding GI prophylaxis. Denies shortness of breath, fever, chills, weight loss, anorexia. Patient did have CT scan of abdomen and pelvis with IV contrast the report was reviewed, esophageal wall thickening is noted, fatty infiltration, and calcified gallbladder stone. Past medical history: Chronic EtOH, erosive esophagitis, chronic pancreatitis, hepatitis C, COPD, Past surgical history: Hernia repairs 2, last endoscopy April/2016 Allergies: Penicillin Social history: Denies smoking or substance abuse, drinks 624 ounce presented today for over 20 years and occasional vodka Family history: Noncontributory Medications: Reviewed as per MAR ROS: Systems reviewed with positive findings see HPI Past Patient History - Infectious Disease Hx of Infectious Diseases: None - Tetanus Immunizations Tetanus Immunization: Unknown - Past Medical History & Family History Past Medical History?: Yes - Past Social History Smoking Status: Current Some Days Smoker - CARDIAC Hx Cardiac Disorders: Yes Hx Hypertension: Yes (DENIES) - PULMONARY Hx Chronic Obstructive Pulmonary Disease (COPD): Yes - NEUROLOGICAL HX Cerebrovascular Accident: No - HEENT Hx HEENT Problems: No - RENAL Hx Chronic Kidney Disease: No - ENDOCRINE/METABOLIC Hx Diabetes Mellitus Type 2: Yes - HEMATOLOGICAL/ONCOLOGICAL Hx Blood Disorders: Yes - INTEGUMENTARY Hx Dermatological Problems: Yes Other/Comment: GENERALIZED MULTIPLE REDDENED RASH TO WHOLE FACE AND CHEST,LOWER PART OF ABDOMINAL AREA. ALSO HAS GENERALIZED INSECT BITES ALL OVER ARMS AND LEGS AND BACK AND BODY. TATTOOS ALL OVER ARMS BACK AND LEGS. - MUSCULOSKELETAL/RHEUMATOLOGICAL Hx Musculoskeletal Disorders: Yes Hx Falls: Yes - GASTROINTESTINAL Hx Gastrointestinal Disorders: Yes (GI BLEED) Hx Gall Bladder Disease: Yes Hx Pancreatitis: Yes Other/Comment: X2 HERNIA REPAIR acid reflux - GENITOURINARY/GYNECOLOGICAL Hx Genitourinary Disorders: Yes (ORCHIECTOMY) - PSYCHIATRIC Hx Psychophysiologic Disorder: Yes Hx Anxiety: Yes Hx Depression: Yes Hx Substance Use: No (DENIES) - SURGICAL HISTORY Hx Cardiac Catheterization: No Hx Coronary Stent: No Hx Musculoskeletal Surgery: Yes (Left hand surgery DENIES) - ANESTHESIA Hx Anesthesia: Yes Hx Anesthesia Reactions: No Hx Malignant Hyperthermia: No Meds Allergies/Adverse Reactions: Allergies Allergy/AdvReac Type Severity Reaction Status Date / Time Penicillins Allergy RASH Verified 10/22/16 00:38 - Medications Medications: Current Medications Albuterol/Ipratropium (Duoneb 3 Mg/0.5 Mg (3 Ml) Ud) 3 ml IH Q4H PRN PRN Reason: Shortness of Breath Chlordiazepoxide (Librium) 25 mg PO Q6 SOPHIA PRN Reason: Protocol Last Admin: 01/16/17 11:52 Dose: 25 mg Multivitamins/Vitamin C 10 ml/ (Dextrose/Sodium Chloride) 1,010 mls @ 100 mls/ hr IV ONCE ONE Stop: 01/16/17 22:05 Last Admin: 01/16/17 11:53 Dose: 100 mls/hr Lorazepam (Ativan) 1 mg IVP Q4 PRN; Protocol PRN Reason: Symptoms of alcohol withdrawl Last Admin: 01/16/17 11:53 Dose: 1 mg Ondansetron HCl (Zofran Inj) 4 mg IVP Q6H PRN PRN Reason: Nausea/Vomiting Last Admin: 01/16/17 08:27 Dose: 4 mg Pantoprazole Sodium (Protonix Inj) 40 mg IVP Q12H SOPHIA Last Admin: 01/16/17 06:58 Dose: 40 mg Physical Exam - Constitutional Appears: No Acute Distress - Head Exam Head Exam: NORMOCEPHALIC - Eye Exam Eye Exam: Normal appearance. absent: Scleral icterus - ENT Exam ENT Exam: Mucous Membranes Moist - Neck Exam Neck exam: Positive for: Normal Inspection - Respiratory Exam Respiratory Exam: Decreased Breath Sounds, NORMAL BREATHING PATTERN. absent: Rales, Wheezes, Respiratory Distress - Cardiovascular Exam Cardiovascular Exam: +S1, +S2 - GI/Abdominal Exam GI & Abdominal Exam: Distended, Normal Bowel Sounds, Soft, Tenderness ( epigastric). absent: Guarding, Rebound - Extremities Exam Extremities exam: Positive for: pedal pulses present. Negative for: calf tenderness, pedal edema - Neurological Exam Neurological exam: Alert, Oriented x3 Additional comments: bilateral hand tremors - Skin Skin Exam: Dry, Warm Results - Vital Signs Recent Vital Signs: Last Vital Signs Temp 97.7 F 01/16/17 09:23 Pulse 94 H 01/16/17 09:23 Resp 18 01/16/17 09:23 BP 126/80 01/16/17 09:23 Pulse Ox 92 L 01/16/17 09:23 - Labs Result Diagrams: 01/16/17 12:00 01/16/17 06:39 Labs: Laboratory Results - last 24 hr 01/15/17 01/16/17 01/16/17 21:32 06:20 06:39 WBC RBC Hgb Hct MCV MCH MCHC RDW Plt Count MPV Gran % Lymph % (Auto) Mills % (Auto) Eos % (Auto) Baso % (Auto) Gran # Lymph # Mills # Eos # Baso # pO2 176 H VBG pH 7.43 VBG pCO2 41.0 VBG HCO3 27.2 VBG Total CO2 28.5 H VBG O2 Sat (Calc) 99.3 H VBG Base Excess 2.6 H VBG Potassium 2.7 L Sodium 131.0 L 138 Chloride 96.0 L 98 Glucose 191 H Lactate 1.4 FiO2 21.0 Potassium 3.6 Carbon Dioxide 28 Anion Gap 16 BUN 6 L Creatinine 0.8 Est GFR ( Amer) > 60 Est GFR (Non-Af Amer) > 60 Random Glucose 98 Calcium 8.2 L Phosphorus 3.0 Magnesium 2.0 Total Bilirubin 1.3 AST 53 ALT 46 Alkaline Phosphatase 114 Troponin I 0.02 Total Protein 7.3 Albumin 4.0 Globulin 3.3 Albumin/Globulin Ratio 1.2 Venous Blood Potassium 2.7 L Blood Type O POSITIVE Antibody Screen Negative BBK History Checked Patient has bt 01/16/17 01/16/17 06:39 12:00 WBC 6.2 D 5.8 RBC 4.08 4.14 Hgb 9.4 L 9.6 L Hct 30.2 L 31.0 L MCV 74.0 L 74.9 L MCH 23.0 L 23.2 L MCHC 31.1 31.0 RDW 17.6 H 17.6 H Plt Count 108 L 120 MPV 8.8 9.0 Gran % 75.7 H 76.5 H Lymph % (Auto) 12.0 L 12.3 L Mills % (Auto) 11.1 H 9.7 H Eos % (Auto) 1.0 L 1.2 L Baso % (Auto) 0.2 0.3 Gran # 4.66 4.43 Lymph # 0.7 L 0.7 L Mills # 0.7 H 0.6 Eos # 0.1 0.1 Baso # 0.01 0.02 pO2 VBG pH VBG pCO2 VBG HCO3 VBG Total CO2 VBG O2 Sat (Calc) VBG Base Excess VBG Potassium Sodium Chloride Glucose Lactate FiO2 Potassium Carbon Dioxide Anion Gap BUN Creatinine Est GFR ( Amer) Est GFR (Non-Af Amer) Random Glucose Calcium Phosphorus Magnesium Total Bilirubin AST ALT Alkaline Phosphatase Troponin I Total Protein Albumin Globulin Albumin/Globulin Ratio Venous Blood Potassium Blood Type Antibody Screen BBK History Checked Assessment & Plan - Assessment and Plan (Free Text) Assessment: Assessment: Intractable nausea, episode of hematemesis, rule out Danielle-Mello tear, patient did have vomitus just morning but it was clear Esophageal ulcers Chronic EtOH History of chronic pancreatitis Hepatitis C Anemia COPD Plan: Continue Protonix twice a day Start clear liquid diet Zofran when necessary On Ativan & Librium Observe for alcohol withdrawal Monitor H&H IVF w/ MVI Patient would benefit from repeat endoscopy, when patient is optimal Elective outpatient colonoscopy Alcohol cessation Thank you for this consult and from acid participate in your patient's care, further recommendations based upon clinical course. Seen and discussed with Dr. Kidd. <Jareth Kidd V - Last Filed: 01/17/17 00:00> Meds - Medications Medications: Current Medications Albuterol/Ipratropium (Duoneb 3 Mg/0.5 Mg (3 Ml) Ud) 3 ml IH Q4H PRN PRN Reason: Shortness of Breath Chlordiazepoxide (Librium) 25 mg PO Q6 SOPHIA PRN Reason: Protocol Last Admin: 01/16/17 23:00 Dose: 25 mg Lorazepam (Ativan) 1 mg IVP Q4 PRN; Protocol PRN Reason: Symptoms of alcohol withdrawl Last Admin: 01/16/17 21:09 Dose: 1 mg Ondansetron HCl (Zofran Inj) 4 mg IVP Q6H PRN PRN Reason: Nausea/Vomiting Last Admin: 01/16/17 22:59 Dose: 4 mg Pantoprazole Sodium (Protonix Inj) 40 mg IVP Q12H SOPHIA Last Admin: 01/16/17 17:16 Dose: 40 mg Results - Vital Signs Recent Vital Signs: Last Vital Signs Temp 99.1 F 01/16/17 16:00 Pulse 89 01/16/17 18:00 Resp 19 01/16/17 16:00 BP 135/95 H 01/16/17 16:00 Pulse Ox 93 L 01/16/17 16:00 - Labs Result Diagrams: 01/16/17 12:00 01/16/17 06:39 Labs: Laboratory Results - last 24 hr 01/16/17 01/16/17 01/16/17 06:20 06:39 06:39 WBC 6.2 D RBC 4.08 Hgb 9.4 L Hct 30.2 L MCV 74.0 L MCH 23.0 L MCHC 31.1 RDW 17.6 H Plt Count 108 L MPV 8.8 Gran % 75.7 H Lymph % (Auto) 12.0 L Mills % (Auto) 11.1 H Eos % (Auto) 1.0 L Baso % (Auto) 0.2 Gran # 4.66 Lymph # 0.7 L Mills # 0.7 H Eos # 0.1 Baso # 0.01 Sodium 138 Potassium 3.6 Chloride 98 Carbon Dioxide 28 Anion Gap 16 BUN 6 L Creatinine 0.8 Est GFR ( Amer) > 60 Est GFR (Non-Af Amer) > 60 Random Glucose 98 Calcium 8.2 L Phosphorus 3.0 Magnesium 2.0 Total Bilirubin 1.3 AST 53 ALT 46 Alkaline Phosphatase 114 Lactate Dehydrogenase Total Creatine Kinase Troponin I 0.02 Total Protein 7.3 Albumin 4.0 Globulin 3.3 Albumin/Globulin Ratio 1.2 Blood Type O POSITIVE Antibody Screen Negative BBK History Checked Patient has bt 01/16/17 01/16/17 12:00 16:20 WBC 5.8 RBC 4.14 Hgb 9.6 L Hct 31.0 L MCV 74.9 L MCH 23.2 L MCHC 31.0 RDW 17.6 H Plt Count 120 MPV 9.0 Gran % 76.5 H Lymph % (Auto) 12.3 L Mills % (Auto) 9.7 H Eos % (Auto) 1.2 L Baso % (Auto) 0.3 Gran # 4.43 Lymph # 0.7 L Mills # 0.6 Eos # 0.1 Baso # 0.02 Sodium Potassium Chloride Carbon Dioxide Anion Gap BUN Creatinine Est GFR ( Amer) Est GFR (Non-Af Amer) Random Glucose Calcium Phosphorus Magnesium Total Bilirubin AST ALT Alkaline Phosphatase Lactate Dehydrogenase 422 Total Creatine Kinase 75 Troponin I 0.02 Total Protein Albumin Globulin Albumin/Globulin Ratio Blood Type Antibody Screen BBK History Checked Attending/Attestation - Attestation I have personally seen and examined this patient.: Yes I have fully participated in the care of the patient.: Yes I have reviewed all pertinent clinical information: Yes Notes (Text): This is an addendum to GI progress report dictated by Shruthi Aly APN.The patient was seen and examined earlier. Medical records, lab studies, imagings were reviewed. Last 24 hours events reviewed. Agreed with the above treatment plan as outlined in Shruthi Aly APN's notes the with the addition of the following abdomen soft Episode of vomiting this morning no blood Esophageal ulcerations multiple last EGD in February in April Patient still drinking actively the last dose of alcohol was few hours before he came to the hospital High-dose PPI 01/16/17 23:58
--- NOTE | 2017-01-16 13:22 | CARD ---
APPROVED REPORT EKG Measurement Heart [id number] <Conclusion> Normal sinus rhythm PRWP V 1 - 4, possible lead placement
[2017-01-16 16:57] LABS: TROPONIN I 0.02 ng/mL
[2017-01-17 06:36] LABS: BASO # 0.01 K/mm3 (0.0-2.0); BASO % 0.2 % (0.0-3.0); EOS # 0.3 (0.0-0.7); EOS % 4.6 % (1.5-5.0); GRAN # 3.94 (1.4-6.5); GRAN % 70.1 % (50.0-68.0); HEMATOCRIT 33.6 % (42.0-52.0); LYMPH # 0.9 (1.2-3.4); LYMPH % 15.7 % (22.0-35.0); MEAN CELL VOLUME 75.8 fl (80.0-105.0); MEAN CORPUSCULAR HEMOGLOBIN 23.5 pg (25.0-35.0); MEAN PLATELET VOLUME 9.2 fl (7.0-11.0); MONO # 0.5 (0.1-0.6); MONO % 9.4 % (1.0-6.0); RED CELL DISTRIBUTION WIDTH 17.7 % (11.5-14.5); WHITE BLOOD COUNT 5.6 10^3/ul (4.5-11.0)
[2017-01-17 06:55] LABS: ALB/GLOB RATIO 1.2 (1.1-1.8); ALKALINE PHOSPHATASE 105 U/L (38-126); ALT/SGPT 47 U/L (7-56); AST/SGOT 39 U/L (17-59); BILIRUBIN,TOTAL 1.3 mg/dL (0.2-1.3); BLOOD UREA NITROGEN 6 mg/dL (7-21); CALCIUM 8.9 mg/dL (8.4-10.5); CARBON DIOXIDE 28 mmol/L (21-33); CHLORIDE 98 mmol/L (95-110); GFR AFRICAN-AMERICAN > 60; GLUCOSE,RANDOM 105 mg/dL (70-110); MAGNESIUM 1.7 mg/dL (1.7-2.2); PHOSPHOROUS 2.8 mg/dL (2.5-4.5); POTASSIUM 3.3 mmol/L (3.6-5.0); SODIUM 135 mmol/L (132-148); TOTAL PROTEIN 7.4 g/dL (5.8-8.3)
[2017-01-17] MEDS ORDERED: Magnesium Sulfate 1 gm in D5W 1 GM/100 ML BAG IVPB ONE (07:31)
[2017-01-17] MEDS ORDERED: Multivitamin (MVI) 10 ML in Dextrose 5%/0.45% NS 1,000 ML IV ONE (07:31)
[2017-01-17] MEDS ORDERED: guaiFENesin 100 mg/5 ml Syrup UD PO ONE (07:32)
[2017-01-17] MEDS: Potassium Chloride 20 mEq ER Tab PO SCH ×2 (08:45)
[2017-01-17 11:50] LABS: BASO # 0.02 K/mm3 (0.0-2.0); BASO % 0.4 % (0.0-3.0); EOS # 0.3 (0.0-0.7); EOS % 5.4 % (1.5-5.0); GRAN # 3.8 (1.4-6.5); GRAN % 70.3 % (50.0-68.0); HEMATOCRIT 34.9 % (42.0-52.0); LYMPH # 0.8 (1.2-3.4); MEAN CELL VOLUME 75.4 fl (80.0-105.0); MEAN CORPUSCULAR HEMOGLOBIN 23.3 pg (25.0-35.0); MEAN CORPUSCULAR HGB CONC 30.9 g/dl (31.0-37.0); MEAN PLATELET VOLUME 9.6 fl (7.0-11.0); MONO # 0.5 (0.1-0.6); MONO % 8.9 % (1.0-6.0); RED CELL DISTRIBUTION WIDTH 17.8 % (11.5-14.5); WHITE BLOOD COUNT 5.4 10^3/ul (4.5-11.0)
--- NOTE | 2017-01-17 13:16 | CP.PCM.PN ---
<Aman Sutton - Last Filed: 01/17/17 13:39> Subjective - Date & Time of Evaluation Date of Evaluation: 01/17/17 Time of Evaluation: 07:00 - Subjective Subjective: Patient seen and examined this AM at bedside. Overnight patient was given Ativan and Librium for agitation/withdrawl symptoms. Patient reports today he is feeling better but still has some mild mid-epigastric pain, continued agitation/tremors and continued emesis of clear liquid. Patient is able to tolerate clear liquid diet at this time. Patient is counseled on alcohol cessation and is in understanding. Patient denies chest pain, shortness of breath, fever, chills. Per nursing patient is reported to have diaphoresis and slight agitation requiring scheduled ativan and librium. Objective - Vital Signs/Intake and Output Vital Signs (last 24 hours): Temp Pulse Resp BP Pulse Ox 98.9 F 81 22 120/70 94 L 01/17/17 09:09 01/17/17 09:09 01/17/17 09:09 01/17/17 09:09 01/17/17 09:09 Intake and Output: 01/17/17 01/17/17 06:59 18:59 Intake Total 1500 Output Total 500 Balance 1000 - Medications Medications: Current Medications Albuterol/Ipratropium (Duoneb 3 Mg/0.5 Mg (3 Ml) Ud) 3 ml IH Q4H PRN PRN Reason: Shortness of Breath Chlordiazepoxide (Librium) 25 mg PO Q6 [facility] PRN Reason: Protocol Last Admin: 01/17/17 12:18 Dose: 25 mg Multivitamins/Vitamin C 10 ml/ (Dextrose/Sodium Chloride) 1,010 mls @ 100 mls/ hr IV ONCE ONE Stop: 01/17/17 17:36 Last Admin: 01/17/17 08:45 Dose: 100 mls/hr Lorazepam (Ativan) 1 mg IVP Q4 PRN; Protocol PRN Reason: Symptoms of alcohol withdrawl Last Admin: 01/17/17 10:06 Dose: 1 mg Ondansetron HCl (Zofran Inj) 4 mg IVP Q6H PRN PRN Reason: Nausea/Vomiting Last Admin: 01/17/17 05:12 Dose: 4 mg Pantoprazole Sodium (Protonix Inj) 40 mg IVP Q12H [facility] Last Admin: 01/17/17 05:12 Dose: 40 mg Potassium Chloride (K-Dur 20 Meq Er Tab) 20 meq PO BRK [facility] Last Admin: 01/17/17 08:45 Dose: 20 meq Potassium Chloride (K-Dur 20 Meq Er Tab) 20 meq PO 0800 [facility] Last Admin: 01/17/17 08:45 Dose: 20 meq - Labs Labs: 01/17/17 11:44 01/17/17 06:32 PT 13.6 SECONDS (9.4-12.5) H 01/15/17 17:25 INR 1.24 (0.93-1.08) H 01/15/17 17:25 APTT 30.3 Seconds (25.1-36.5) 01/15/17 17:25 - Head Exam Head Exam: ATRAUMATIC, NORMAL INSPECTION, NORMOCEPHALIC - Eye Exam Eye Exam: EOMI, PERRL - ENT Exam ENT Exam: Mucous Membranes Moist - Neck Exam Neck Exam: Full ROM - Respiratory Exam Respiratory Exam: Clear to Ausculation Bilateral, NORMAL BREATHING PATTERN. absent: Rales, Wheezes, Respiratory Distress - Cardiovascular Exam Cardiovascular Exam: REGULAR RHYTHM, +S1, +S2. absent: Tachycardia - GI/Abdominal Exam GI & Abdominal Exam: Distended, Soft, Tenderness (mid epigastric region), Normal Bowel Sounds. absent: Guarding - Extremities Exam Extremities Exam: Full ROM, Normal Capillary Refill. absent: Calf Tenderness - Back Exam Back Exam: NORMAL INSPECTION. absent: CVA tenderness (L), CVA tenderness (R) - Neurological Exam Neurological Exam: Alert, Awake, CN II-XII Intact, Oriented x3 Additional comments: patient noted to have resting upper extremity tremor, motor and sensory grossly intact - Psychiatric Exam Psychiatric exam: Agitated (mild). absent: Depressed, Suicidal Ideation - Skin Skin Exam: Dry, Normal Color Additional comments: evidence of multiple tattoos Assessment and Plan - Assessment and Plan (Free Text) Assessment: Patient is a 56 year old male with the past medical history of erosive esophagitis grade D, chronic pancreatitis, hepatitis C, COPD, and microcytic anemia who comes in complaining of coffee ground emesis and chest pain for the past 3 days. Patient was admitted for evaluation of coffee ground emesis, chest pain and monitoring for EOTH withdrawl. Patient noted to have negative troponin x 3 with CP ACS ruled out. Plan: 1. Hematemesis - Likely secondary to alcohol consumption in the setting of history of grade D erosive esophagitis(EGD 02/21/2016) - Coffee ground emesis on admission, H/H stable since admit - Protonix, FA, MV - Platelet count noted, will continue to monitor - Gastroenterology(Dr. Kidd) consulted, appreciate recs, EGD scheduled today per GI, diet advanced to clear liquid diet, IVF MVI 2. ETOH abuse and withdrawl - Alcohol level of 266 upon admission - Ativan 1gm Q4H prn, has required multiple doses, will plan to titrate - Librium 25mg Q6H, LFT within normal range - CIWA protocol - FA, MV - Fall and aspiration protocol 3. Chest Pain - Likely secondary to pancreatitis vs. history of erosive esophagitis vs. multiple episodes of emesis - Troponin negative x3, CP ACS ruled out - EKG on admission showing NSR with no acute ST segment depression/elevation or significant changes from previous EKG - Last known ECHO in 04/2016 shown to have EF of 67% - Will continue to monitor for symptoms 4. Chronic pancreatitis - History of pancreatitis, Lipase on admission 426 - Secondary to chronic ETOH abuse 5. Hx of COPD - Duonebs prn - NC2L prn, maintain goal SaO2 of 88-92% PPX GI - Protonix DVT - SCDs, no AC in setting of suspected GI bleed Case and plan discussed with attending <Dale Narvaez - Last Filed: 01/17/17 17:10> Objective - Vital Signs/Intake and Output Vital Signs (last 24 hours): Temp Pulse Resp BP Pulse Ox 98.9 F 81 22 120/70 94 L 01/17/17 09:09 01/17/17 09:09 01/17/17 09:09 01/17/17 09:09 01/17/17 09:09 Intake and Output: 01/17/17 01/17/17 06:59 18:59 Intake Total 1500 Output Total 500 Balance 1000 - Medications Medications: Current Medications Albuterol/Ipratropium (Duoneb 3 Mg/0.5 Mg (3 Ml) Ud) 3 ml IH Q4H PRN PRN Reason: Shortness of Breath Chlordiazepoxide (Librium) 25 mg PO Q8 [facility] PRN Reason: Protocol Multivitamins/Vitamin C 10 ml/ (Dextrose/Sodium Chloride) 1,010 mls @ 100 mls/ hr IV ONCE ONE Stop: 01/17/17 17:36 Last Admin: 01/17/17 08:45 Dose: 100 mls/hr Lorazepam (Ativan) 1 mg IVP Q6H PRN; Protocol PRN Reason: Symptoms of alcohol withdrawl Ondansetron HCl (Zofran Inj) 4 mg IVP Q6H PRN PRN Reason: Nausea/Vomiting Last Admin: 01/17/17 05:12 Dose: 4 mg Pantoprazole Sodium (Protonix Inj) 40 mg IVP Q12H [facility] Last Admin: 01/17/17 05:12 Dose: 40 mg Potassium Chloride (K-Dur 20 Meq Er Tab) 20 meq PO BRK [facility] Last Admin: 01/17/17 08:45 Dose: 20 meq Potassium Chloride (K-Dur 20 Meq Er Tab) 20 meq PO 0800 [facility] Last Admin: 01/17/17 08:45 Dose: 20 meq - Labs Labs: 01/17/17 11:44 01/17/17 06:32 PT 13.6 SECONDS (9.4-12.5) H 01/15/17 17:25 INR 1.24 (0.93-1.08) H 01/15/17 17:25 APTT 30.3 Seconds (25.1-36.5) 01/15/17 17:25 Attending/Attestation - Attestation I have personally seen and examined this patient.: Yes I have fully participated in the care of the patient.: Yes I have reviewed all pertinent clinical information, including history, physical exam and plan: Yes Notes (Text): 01/17/17 17:09 56 year old male with past medical history of erosive esophagitis, chronic pancreatitis, chronic ETOH abuse, and COPD who presented with complaint of coffee ground emesis, chest pain and alcohol withdrawal. Continue with protonix and zofran prn. Continue to monitor cbc closely. GI is following and plan is for EGD today. Continue with banana bag and librium/ativan taper for withdrawal symptoms. He was counselled on alcohol abstinence. Serial cardiac enzymes were negative and ACS was ruled out. Will replete and repeat lytes. Dale Narvaez MD Hospitalist.
[2017-01-17] MEDS ORDERED: Propofol 10 mg/ml Inj (20 ML) ONE (17:27)
[2017-01-17] MEDS: Sodium Chloride 0.9% 1,000 ML IV SCH (21:01)
[2017-01-18] MEDS: Sodium Chloride 0.9% 1,000 ML IV SCH ×2 (06:05→14:30)
[2017-01-18 08:22] LABS: BASO # 0.01 K/mm3 (0.0-2.0); BASO % 0.2 % (0.0-3.0); EOS # 0.3 (0.0-0.7); EOS % 5.3 % (1.5-5.0); GRAN # 4.13 (1.4-6.5); GRAN % 67.8 % (50.0-68.0); HEMATOCRIT 31.8 % (42.0-52.0); LYMPH # 1.1 (1.2-3.4); LYMPH % 17.7 % (22.0-35.0); MEAN CELL VOLUME 75.2 fl (80.0-105.0); MEAN CORPUSCULAR HEMOGLOBIN 22.9 pg (25.0-35.0); MEAN CORPUSCULAR HGB CONC 30.5 g/dl (31.0-37.0); MEAN PLATELET VOLUME 8.7 fl (7.0-11.0); MONO # 0.6 (0.1-0.6); RED CELL DISTRIBUTION WIDTH 17.5 % (11.5-14.5); WHITE BLOOD COUNT 6.1 10^3/ul (4.5-11.0)
[2017-01-18 08:36] LABS: ALB/GLOB RATIO 1.1 (1.1-1.8); ALKALINE PHOSPHATASE 101 U/L (38-126); ALT/SGPT 38 U/L (7-56); AST/SGOT 43 U/L (17-59); BILIRUBIN,TOTAL 1.1 mg/dL (0.2-1.3); BLOOD UREA NITROGEN 4 mg/dL (7-21); CALCIUM 8.7 mg/dL (8.4-10.5); CARBON DIOXIDE 28 mmol/L (21-33); CHLORIDE 101 mmol/L (98-107); GFR AFRICAN-AMERICAN > 60; GLUCOSE,RANDOM 103 mg/dL (70-110); MAGNESIUM 1.6 mg/dL (1.7-2.2); PHOSPHOROUS 3.3 mg/dL (2.5-4.5); POTASSIUM 3.4 mmol/L (3.6-5.0); SODIUM 137 mmol/L (132-148)
[2017-01-18] MEDS ORDERED: Magnesium Sulfate 2 GM in Sodium Chloride 0.9% 100 ML IVPB ONE (08:55)
[2017-01-18] MEDS: Potassium Chloride 20 mEq ER Tab PO SCH ×2 (09:31)
--- NOTE | 2017-01-18 13:50 | CP.PCM.PN ---
<JAYCE RAMOS - Last Filed: 01/18/17 14:43> Subjective - Date & Time of Evaluation Date of Evaluation: 01/18/17 Time of Evaluation: 13:40 - Subjective Subjective: Medicine Progress Note: Pt seen and examined at bedside. Pt denied any acute overnight events. Pt denied any withdrawal symptoms. Pt tolerates diet well. Pt denied CP, SOB, nausea, vomiting, diarrhea, diaphoresis, fever, chills, abdominal pain, MIN, or dizziness. Objective - Vital Signs/Intake and Output Vital Signs (last 24 hours): Temp Pulse Resp BP Pulse Ox 97.5 F L 83 22 122/68 95 01/18/17 06:00 01/18/17 10:00 01/18/17 06:00 01/18/17 06:00 01/18/17 06:00 Intake and Output: 01/18/17 01/18/17 06:59 18:59 Intake Total 1680 Output Total 1100 Balance 580 - Medications Medications: Current Medications Albuterol/Ipratropium (Duoneb 3 Mg/0.5 Mg (3 Ml) Ud) 3 ml IH Q4H PRN PRN Reason: Shortness of Breath Chlordiazepoxide (Librium) 25 mg PO Q12 [facility] PRN Reason: Protocol Sodium Chloride (Sodium Chloride 0.9%) 1,000 mls @ 100 mls/hr IV .Q10H [facility] Last Admin: 01/18/17 06:05 Dose: 100 mls/hr Lorazepam (Ativan) 1 mg IVP Q6H PRN; Protocol PRN Reason: Symptoms of alcohol withdrawl Last Admin: 01/18/17 12:37 Dose: 1 mg Ondansetron HCl (Zofran Inj) 4 mg IVP Q6H PRN PRN Reason: Nausea/Vomiting Last Admin: 01/18/17 12:37 Dose: 4 mg Pantoprazole Sodium (Protonix Inj) 40 mg IVP Q12H [facility] Last Admin: 01/18/17 06:05 Dose: 40 mg Potassium Chloride (K-Dur 20 Meq Er Tab) 20 meq PO BRK [facility] Last Admin: 01/18/17 09:31 Dose: 20 meq Potassium Chloride (K-Dur 20 Meq Er Tab) 20 meq PO 0800 [facility] Last Admin: 01/18/17 09:31 Dose: 20 meq - Labs Labs: 01/18/17 08:00 01/18/17 08:00 PT 13.6 SECONDS (9.4-12.5) H 01/15/17 17:25 INR 1.24 (0.93-1.08) H 01/15/17 17:25 APTT 30.3 Seconds (25.1-36.5) 01/15/17 17:25 - Constitutional Appears: No Acute Distress - Head Exam Head Exam: ATRAUMATIC, NORMOCEPHALIC - Eye Exam Eye Exam: EOMI, PERRL - ENT Exam ENT Exam: Mucous Membranes Moist - Neck Exam Neck Exam: Full ROM. absent: Lymphadenopathy, Tenderness, Thyromegaly - Respiratory Exam Respiratory Exam: Clear to Ausculation Bilateral. absent: Rales, Rhonchi, Wheezes - Cardiovascular Exam Cardiovascular Exam: RRR, +S1, +S2. absent: Diastolic murmur, Gallop, Rubs, Murmur - GI/Abdominal Exam GI & Abdominal Exam: Soft. absent: Distended, Firm, Guarding, Tenderness, Rebound - Extremities Exam Additional comments: Minor tremors noted in b/l UE - Neurological Exam Neurological Exam: Alert, Awake, Oriented x3 - Psychiatric Exam Psychiatric exam: Normal Affect, Normal Mood - Skin Skin Exam: Dry, Intact, Normal Color, Warm Assessment and Plan - Assessment and Plan (Free Text) Assessment: Patient is a 56 year old male with the past medical history of erosive esophagitis grade D, chronic pancreatitis, hepatitis C, COPD, and microcytic anemia who comes in complaining of coffee ground emesis and chest pain for the past 3 days. Patient was admitted for evaluation of coffee ground emesis, chest pain and monitoring for EOTH withdrawl. Patient noted to have negative troponin x 3 with CP ACS ruled out. Plan: 1. Hematemesis - Likely secondary to alcohol consumption in the setting of history of grade D erosive esophagitis (EGD 02/21/2016) - Coffee ground emesis on admission, H/H stable since admit - Protonix, FA, MV - Platelet count noted, will continue to monitor - Gastroenterology(Dr. Kidd) consulted, appreciate recs EGD showed esophageal ulcerations, f/u biopsy 2. ETOH abuse and withdrawl - Alcohol level of 266 upon admission - Ativan 1gm Q4H prn, has required multiple doses, will plan to titrate - Tapered Librium to 25q12 - CIWA protocol - FA, MV - Fall and aspiration protocol 3. Chest Pain - Likely secondary to pancreatitis vs. history of erosive esophagitis vs. multiple episodes of emesis - Troponin negative x3, CP ACS ruled out - EKG on admission showing NSR with no acute ST segment depression/elevation or significant changes from previous EKG - Last known ECHO in 04/2016 shown to have EF of 67% - Will continue to monitor for symptoms 4. Chronic pancreatitis - History of pancreatitis, Lipase on admission 426 - Secondary to chronic ETOH abuse 5. Hx of COPD - Duonebs prn - NC2L prn, maintain goal SaO2 of 88-92% PPX GI - Protonix DVT - SCDs, no AC in setting of suspected GI bleed Case and plan discussed with attending <Dale Narvaez - Last Filed: 01/18/17 15:06> Objective - Vital Signs/Intake and Output Vital Signs (last 24 hours): Temp Pulse Resp BP Pulse Ox 97.5 F L 83 22 122/68 95 01/18/17 06:00 01/18/17 10:00 01/18/17 06:00 01/18/17 06:00 01/18/17 06:00 Intake and Output: 01/18/17 01/18/17 06:59 18:59 Intake Total 1680 Output Total 1100 Balance 580 - Medications Medications: Current Medications Albuterol/Ipratropium (Duoneb 3 Mg/0.5 Mg (3 Ml) Ud) 3 ml IH Q4H PRN PRN Reason: Shortness of Breath Chlordiazepoxide (Librium) 25 mg PO Q12 [facility] PRN Reason: Protocol Sodium Chloride (Sodium Chloride 0.9%) 1,000 mls @ 100 mls/hr IV .Q10H [facility] Last Admin: 01/18/17 14:30 Dose: 100 mls/hr Lorazepam (Ativan) 0.5 mg IVP Q6H PRN; Protocol PRN Reason: Symptoms of alcohol withdrawl Ondansetron HCl (Zofran Inj) 4 mg IVP Q6H PRN PRN Reason: Nausea/Vomiting Last Admin: 01/18/17 12:37 Dose: 4 mg Pantoprazole Sodium (Protonix Inj) 40 mg IVP Q12H [facility] Last Admin: 01/18/17 06:05 Dose: 40 mg Potassium Chloride (K-Dur 20 Meq Er Tab) 20 meq PO BRK [facility] Last Admin: 01/18/17 09:31 Dose: 20 meq Potassium Chloride (K-Dur 20 Meq Er Tab) 20 meq PO 0800 [facility] Last Admin: 01/18/17 09:31 Dose: 20 meq - Labs Labs: 01/18/17 08:00 01/18/17 08:00 PT 13.6 SECONDS (9.4-12.5) H 01/15/17 17:25 INR 1.24 (0.93-1.08) H 01/15/17 17:25 APTT 30.3 Seconds (25.1-36.5) 01/15/17 17:25 Attending/Attestation - Attestation I have personally seen and examined this patient.: Yes I have fully participated in the care of the patient.: Yes I have reviewed all pertinent clinical information, including history, physical exam and plan: Yes Notes (Text): 01/18/17 15:00 56 year old male with past medical history of erosive esophagitis, chronic pancreatitis, chronic ETOH abuse, and COPD who presented with complaint of coffee ground emesis, chest pain and alcohol withdrawal. GI evaluation was appreciated. He is s/p EGD which showed esophagitis. Will follow up on biopsy. Continue with protonix and zofran prn. Continue with diet as tolerated; advance as per GI. Continue multivitamin, folic acid and thiamine. Continue with librium/ativan taper for withdrawal symptoms. He was counselled on alcohol abstinence. OOB to chair is ordered. Serial cardiac enzymes were negative and ACS was ruled out. Will replete and repeat lytes (potassium). Dale Narvaez MD Hospitalist.
--- NOTE | 2017-01-18 15:36 | CP.PCM.PN ---
Subjective - Date & Time of Evaluation Date of Evaluation: 01/18/17 Time of Evaluation: 05:00 - Subjective Subjective: S:It was requested to insert a heparin lock. Patient has no complaints now. Pertinent medical record was review. O: Last Vital Signs 3 Temp 97.5 F L 01/18/17 06:00 Pulse 83 01/18/17 10:00 Resp 22 01/18/17 06:00 BP 122/68 01/18/17 06:00 Pulse Ox 95 01/18/17 06:00 Awake,alert , not in distress. LUNGS:Normal breathing pattern. A: Poor venous access. Encounter for intravenous line placement. P:# 24 angiocath was inserted in left thumb. Objective - Vital Signs/Intake and Output Vital Signs (last 24 hours): Temp Pulse Resp BP Pulse Ox 97.5 F L 83 22 122/68 95 01/18/17 06:00 01/18/17 10:00 01/18/17 06:00 01/18/17 06:00 01/18/17 06:00 Intake and Output: 01/18/17 01/18/17 06:59 18:59 Intake Total 1680 Output Total 1100 Balance 580 - Medications Medications: Current Medications Albuterol/Ipratropium (Duoneb 3 Mg/0.5 Mg (3 Ml) Ud) 3 ml IH Q4H PRN PRN Reason: Shortness of Breath Chlordiazepoxide (Librium) 25 mg PO Q12 [facility] PRN Reason: Protocol Folic Acid (Folic Acid) 1 mg PO DAILY [facility] Lorazepam (Ativan) 0.5 mg IVP Q6H PRN; Protocol PRN Reason: Symptoms of alcohol withdrawl Multivitamins (Thera Tab) 1 tab PO 0800 [facility] Ondansetron HCl (Zofran Inj) 4 mg IVP Q6H PRN PRN Reason: Nausea/Vomiting Last Admin: 01/18/17 12:37 Dose: 4 mg Pantoprazole Sodium (Protonix Ec Tab) 40 mg PO 0600 [facility] Potassium Chloride (K-Dur 20 Meq Er Tab) 20 meq PO BRK [facility] Last Admin: 01/18/17 09:31 Dose: 20 meq Potassium Chloride (K-Dur 20 Meq Er Tab) 20 meq PO 0800 [facility] Last Admin: 01/18/17 09:31 Dose: 20 meq Thiamine HCl (Vitamin B1 Tab) 100 mg PO DAILY [facility] - Labs Labs: 01/18/17 08:00 01/18/17 08:00 PT 13.6 SECONDS (9.4-12.5) H 01/15/17 17:25 INR 1.24 (0.93-1.08) H 01/15/17 17:25 APTT 30.3 Seconds (25.1-36.5) 01/15/17 17:25
[2017-01-19] MEDS: Pantoprazole 40 mg EC Tab PO SCH (05:45)
--- NOTE | 2017-01-19 07:13 | PN ---
DATE: 01/18/2017 SUBJECTIVE: This patient was seen and evaluated earlier. The patient has tolerated the liquid diet. PHYSICAL EXAMINATION: VITAL SIGNS: Temperature is 97.7, blood pressure 148/94, pulse 70, respirations 20 and O2 saturation 96%. HEENT: Atraumatic, anicteric. NECK: Supple. HEART: S1, S2 heard. LUNGS: Bilateral air entry present. ABDOMEN: Soft. There was no tenderness. LABORATORY DATA: Hemoglobin 9.7, hematocrit 31.8, platelets 119 improving and WBC 6.1. Chemistry is essentially unremarkable except magnesium 1.6 and potassium 3.4. IMPRESSION: This 56-year-old patient with active alcohol use, admitted with coffee ground vomitus, upper gastrointestinal bleeding, the patient has a history of esophageal ulceration. Last endoscopy done was in April. Decision was taken to do reevaluate the esophagus since it is more than 6 months. The patient was found to have grade D esophageal ulceration and grade C esophageal ulcerations. There was some mucosal prominence noted in the esophagogastric junction area. Biopsy was taken. The patient is presently on liquid diet. If the hemoglobin is stable and the patient is not symptomatic. We will consider advancing to pureed food. Thank you very much for allowing us to participate in the care of the patient. Jareth Kidd MD
[2017-01-19] MEDS ORDERED: Magnesium Sulfate 2 GM in Sodium Chloride 0.9% 100 ML IVPB ONE (07:26)
[2017-01-19 08:05] LABS: BASO # 0.02 K/mm3 (0.0-2.0); BASO % 0.3 % (0.0-3.0); EOS # 0.3 (0.0-0.7); GRAN # 3.91 (1.4-6.5); GRAN % 61.7 % (50.0-68.0); HEMATOCRIT 32.1 % (42.0-52.0); LYMPH # 1.5 (1.2-3.4); LYMPH % 23.1 % (22.0-35.0); MEAN CELL VOLUME 75.4 fl (80.0-105.0); MEAN CORPUSCULAR HEMOGLOBIN 22.8 pg (25.0-35.0); MEAN CORPUSCULAR HGB CONC 30.2 g/dl (31.0-37.0); MEAN PLATELET VOLUME 8.9 fl (7.0-11.0); MONO # 0.6 (0.1-0.6); MONO % 9.9 % (1.0-6.0); RED CELL DISTRIBUTION WIDTH 17.7 % (11.5-14.5); WHITE BLOOD COUNT 6.4 10^3/ul (4.5-11.0)
[2017-01-19 08:23] LABS: ALB/GLOB RATIO 1.2 (1.1-1.8); ALKALINE PHOSPHATASE 96 U/L (38-126); ALT/SGPT 45 U/L (7-56); AST/SGOT 35 U/L (17-59); BILIRUBIN,TOTAL 0.9 mg/dL (0.2-1.3); BLOOD UREA NITROGEN 5 mg/dL (7-21); CALCIUM 8.8 mg/dL (8.4-10.5); CARBON DIOXIDE 26 mmol/L (21-33); CHLORIDE 100 mmol/L (95-110); GFR AFRICAN-AMERICAN > 60; GLUCOSE,RANDOM 94 mg/dL (70-110); MAGNESIUM 1.7 mg/dL (1.7-2.2); PHOSPHOROUS 3.5 mg/dL (2.5-4.5); POTASSIUM 3.5 mmol/L (3.6-5.0); SODIUM 135 mmol/L (132-148); TOTAL PROTEIN 6.8 g/dL (5.8-8.3)
[2017-01-19] MEDS: Potassium Chloride 20 mEq ER Tab PO SCH ×2 (08:32)
[2017-01-19] MEDS: Multivitamin Therapeutic Tab PO SCH (08:34)
--- NOTE | 2017-01-19 11:25 | CP.PCM.PN ---
<AJYCE RAMOS - Last Filed: 01/19/17 11:22> Subjective - Date & Time of Evaluation Date of Evaluation: 01/19/17 Time of Evaluation: 11:22 - Subjective Subjective: Medicine Progress Note: Pt seen and examined at bedside. Pt denied any acute overnight events. Pt feels anxious and has some baseline tremors. Pt denied CP, SOB, nausea, vomiting, diarrhea, abdominal pain, MIN, or dizziness. Objective - Vital Signs/Intake and Output Vital Signs (last 24 hours): Temp Pulse Resp BP Pulse Ox 98.5 F 75 18 119/78 96 01/19/17 06:00 01/19/17 06:00 01/19/17 06:00 01/19/17 06:00 01/19/17 06:00 Intake and Output: 01/19/17 01/19/17 06:59 18:59 Intake Total 780 Output Total 0 Balance 780 - Medications Medications: Current Medications Albuterol/Ipratropium (Duoneb 3 Mg/0.5 Mg (3 Ml) Ud) 3 ml IH Q4H PRN PRN Reason: Shortness of Breath Chlordiazepoxide (Librium) 10 mg PO Q8 SOPHIA PRN Reason: Protocol Folic Acid (Folic Acid) 1 mg PO DAILY [facility] Last Admin: 01/19/17 09:44 Dose: 1 mg Potassium Chloride (Potassium Chloride 20 Meq/100 Ml) 20 meq in 100 mls @ 50 mls/hr IVPB Q2H [facility] Stop: 01/19/17 11:29 Last Admin: 01/19/17 08:34 Dose: 50 mls/hr Lorazepam (Ativan) 0.5 mg IVP Q6H PRN; Protocol PRN Reason: Symptoms of alcohol withdrawl Last Admin: 01/18/17 23:59 Dose: 0.5 mg Multivitamins (Thera Tab) 1 tab PO 0800 [facility] Last Admin: 01/19/17 08:34 Dose: 1 tab Ondansetron HCl (Zofran Inj) 4 mg IVP Q6H PRN PRN Reason: Nausea/Vomiting Last Admin: 01/19/17 00:06 Dose: 4 mg Pantoprazole Sodium (Protonix Ec Tab) 40 mg PO 0600 [facility] Last Admin: 01/19/17 05:45 Dose: 40 mg Potassium Chloride (K-Dur 20 Meq Er Tab) 20 meq PO BRK SOPHIA Last Admin: 01/19/17 08:32 Dose: 20 meq Potassium Chloride (K-Dur 20 Meq Er Tab) 20 meq PO 0800 [facility] Last Admin: 01/19/17 08:32 Dose: 20 meq Thiamine HCl (Vitamin B1 Tab) 100 mg PO DAILY [facility] Last Admin: 01/19/17 09:45 Dose: 100 mg - Labs Labs: 01/19/17 07:00 01/19/17 07:00 PT 13.6 SECONDS (9.4-12.5) H 01/15/17 17:25 INR 1.24 (0.93-1.08) H 01/15/17 17:25 APTT 30.3 Seconds (25.1-36.5) 01/15/17 17:25 - Constitutional Appears: No Acute Distress - Head Exam Head Exam: ATRAUMATIC, NORMOCEPHALIC - Eye Exam Eye Exam: EOMI, PERRL - ENT Exam ENT Exam: Mucous Membranes Moist, Normal Exam - Neck Exam Neck Exam: Full ROM. absent: Lymphadenopathy, Tenderness, Thyromegaly - Respiratory Exam Respiratory Exam: Clear to Ausculation Bilateral. absent: Accessory Muscle Use , Rales, Rhonchi, Wheezes, Respiratory Distress - Cardiovascular Exam Cardiovascular Exam: RRR, +S1, +S2. absent: Diastolic murmur, Gallop, Rubs, Murmur - GI/Abdominal Exam GI & Abdominal Exam: Soft. absent: Distended, Guarding, Rigid, Tenderness, Mass , Rebound - Extremities Exam Extremities Exam: Full ROM, Normal Capillary Refill, Normal Inspection Additional comments: b/l UE tremors - Back Exam Back Exam: NORMAL INSPECTION - Neurological Exam Neurological Exam: Alert, Awake, Oriented x3 - Psychiatric Exam Psychiatric exam: Anxious, Normal Affect, Normal Mood - Skin Skin Exam: Dry, Intact, Normal Color, Warm Assessment and Plan - Assessment and Plan (Free Text) Assessment: 56 year old male with the past medical history of erosive esophagitis grade D, chronic pancreatitis, hepatitis C, COPD, and microcytic anemia who comes in complaining of coffee ground emesis and chest pain for the past 3 days. Patient was admitted for evaluation of coffee ground emesis, chest pain and monitoring for EOTH withdrawl. Patient noted to have negative troponin x 3 with CP ACS ruled out. Plan: 1. Hematemesis - Likely secondary to alcohol consumption in the setting of history of grade D erosive esophagitis (EGD 02/21/2016) - Coffee ground emesis on admission, H/H stable since admit - Protonix, FA, MV - Platelet count noted, will continue to monitor - Gastroenterology(Dr. Kidd) consulted, appreciate recs EGD showed esophageal ulcerations, f/u biopsy Diet advanced to pureed 2. ETOH abuse and withdrawal - Alcohol level of 266 upon admission - Ativan 0.5 gm Q4H prn, required yesterday - Tapered Librium to 10q8 - CIWA 8 overnight - FA, MV - Fall and aspiration protocol - PT consulted 3. Hypokalemia - K 3.5 - KCl IVPB - Monitor and replete as necessary 4. Hypomagnesmia - Mg 1.7 - Mg Sulfate IVPB - Monitor and replete as necessary 5. Chest Pain - Likely secondary to pancreatitis vs. history of erosive esophagitis vs. multiple episodes of emesis - Troponin negative x3, CP ACS ruled out - EKG on admission showing NSR with no acute ST segment depression/elevation or significant changes from previous EKG - Last known ECHO in 04/2016 shown to have EF of 67% - Will continue to monitor for symptoms 6. Chronic pancreatitis - History of pancreatitis, Lipase on admission 426 - Secondary to chronic ETOH abuse 7. Hx of COPD - Duonebs prn - NC2L prn, maintain goal SaO2 of 88-92% PPX GI - Protonix DVT - SCDs, no AC in setting of suspected GI bleed Case and plan discussed with attending <Dale Narvaez - Last Filed: 01/19/17 12:28> Objective - Vital Signs/Intake and Output Vital Signs (last 24 hours): Temp Pulse Resp BP Pulse Ox 98.5 F 88 18 119/78 96 01/19/17 06:00 01/19/17 10:00 01/19/17 06:00 01/19/17 06:00 01/19/17 06:00 Intake and Output: 01/19/17 01/19/17 06:59 18:59 Intake Total 780 Output Total 0 Balance 780 - Medications Medications: Current Medications Albuterol/Ipratropium (Duoneb 3 Mg/0.5 Mg (3 Ml) Ud) 3 ml IH Q4H PRN PRN Reason: Shortness of Breath Chlordiazepoxide (Librium) 10 mg PO Q8 SOPHIA PRN Reason: Protocol Folic Acid (Folic Acid) 1 mg PO DAILY [facility] Last Admin: 01/19/17 09:44 Dose: 1 mg Lorazepam (Ativan) 0.5 mg IVP Q6H PRN; Protocol PRN Reason: Symptoms of alcohol withdrawl Last Admin: 01/18/17 23:59 Dose: 0.5 mg Multivitamins (Thera Tab) 1 tab PO 0800 [facility] Last Admin: 01/19/17 08:34 Dose: 1 tab Ondansetron HCl (Zofran Inj) 4 mg IVP Q6H PRN PRN Reason: Nausea/Vomiting Last Admin: 01/19/17 00:06 Dose: 4 mg Pantoprazole Sodium (Protonix Ec Tab) 40 mg PO 0600 [facility] Last Admin: 01/19/17 05:45 Dose: 40 mg Potassium Chloride (K-Dur 20 Meq Er Tab) 20 meq PO BRK [facility] Last Admin: 01/19/17 08:32 Dose: 20 meq Potassium Chloride (K-Dur 20 Meq Er Tab) 20 meq PO 0800 [facility] Last Admin: 01/19/17 08:32 Dose: 20 meq Thiamine HCl (Vitamin B1 Tab) 100 mg PO DAILY [facility] Last Admin: 01/19/17 09:45 Dose: 100 mg - Labs Labs: 01/19/17 07:00 01/19/17 07:00 PT 13.6 SECONDS (9.4-12.5) H 01/15/17 17:25 INR 1.24 (0.93-1.08) H 01/15/17 17:25 APTT 30.3 Seconds (25.1-36.5) 01/15/17 17:25 Attending/Attestation - Attestation I have personally seen and examined this patient.: Yes I have fully participated in the care of the patient.: Yes I have reviewed all pertinent clinical information, including history, physical exam and plan: Yes Notes (Text): 01/19/17 12:23 56 year old male with past medical history of erosive esophagitis, chronic pancreatitis, chronic ETOH abuse, and COPD who presented with complaint of coffee ground emesis, chest pain and alcohol withdrawal. Serial cardiac enzymes were negative and ACS was ruled out. He is s/p EGD with findings showing esophagitis. Biopsy is pending. Continue with protonix. Advance diet as per GI as tolerated. Continue with multivitamin, folic acid and thiamine. Continue with librium/ativan taper for withdrawal symptoms. He was counselled on alcohol abstinence. Will replete and repeat lytes (potassium). PT evaluation is requested for d/c planning possibly within 24-48 hrs if withdrawal symptoms continue to improve. Dale Narvaez MD Hospitalist.
--- NOTE | 2017-01-19 16:25 | PN ---
SUBJECTIVE: This patient was seen and evaluated earlier today. The patient is comfortable. No further vomiting blood. No hematemesis. PHYSICAL EXAMINATION: VITAL SIGNS: Temperature 98.5, pulse 75, blood pressure 119/78, respirations 18. HEENT: Atraumatic, anicteric. NECK: Supple. HEART: S1, S2 heard. LUNGS: Bilateral air entry present. ABDOMEN: Soft. There is no mass palpable. EXTREMITIES: No cyanosis. No clubbing. LABORATORY DATA: Hemoglobin 9.7, hematocrit 32.1, WBC is 6.4, platelets 141, it is improving. Potassium 3.5. IMPRESSION: This 56-year-old patient with long history of ETOH, had a recently repeat endoscopy done, which showed grade D and grade C esophagitis. There are circumferential ulcerations in the distal esophageal area. There is small area of the nodular erythematous mucosa and the esophagogastric junction was biopsied also. This patient is at high risk for developing stricture and also neoplasm. The patient is presently on pantoprazole 40 mg once daily. The idea with the patient can be added on H2 madie at night time and PPI in the morning. He would benefit in a skilled nursing if he is not tolerating at least soft to chew well. The patient need to be followed up in the GI clinic for followup endoscopy in about 2 months. Thank you very much for allowing us to participate in the care of the patient. Jareth Kidd MD
[2017-01-20] MEDS: Pantoprazole 40 mg EC Tab PO SCH (05:57)
[2017-01-20 06:50] LABS: BASO # 0.02 K/mm3 (0.0-2.0); BASO % 0.3 % (0.0-3.0); EOS # 0.4 (0.0-0.7); EOS % 5.1 % (1.5-5.0); GRAN # 4.06 (1.4-6.5); HEMATOCRIT 31.7 % (42.0-52.0); LYMPH # 1.6 (1.2-3.4); LYMPH % 23.7 % (22.0-35.0); MEAN CELL VOLUME 74.9 fl (80.0-105.0); MEAN CORPUSCULAR HEMOGLOBIN 23.2 pg (25.0-35.0); MEAN CORPUSCULAR HGB CONC 30.9 g/dl (31.0-37.0); MEAN PLATELET VOLUME 8.5 fl (7.0-11.0); MONO # 0.8 (0.1-0.6); MONO % 11.9 % (1.0-6.0); WHITE BLOOD COUNT 6.9 10^3/ul (4.5-11.0)
[2017-01-20 07:07] LABS: ALB/GLOB RATIO 1.2 (1.1-1.8); ALKALINE PHOSPHATASE 91 U/L (38-126); ALT/SGPT 36 U/L (7-56); AST/SGOT 32 U/L (17-59); BILIRUBIN,TOTAL 0.8 mg/dL (0.2-1.3); BLOOD UREA NITROGEN 6 mg/dL (7-21); CALCIUM 9.1 mg/dL (8.4-10.5); CARBON DIOXIDE 28 mmol/L (21-33); CHLORIDE 99 mmol/L (98-107); GFR AFRICAN-AMERICAN > 60; GLUCOSE,RANDOM 104 mg/dL (70-110); MAGNESIUM 1.6 mg/dL (1.7-2.2); PHOSPHOROUS 3.7 mg/dL (2.5-4.5); POTASSIUM 3.9 mmol/L (3.6-5.0); SODIUM 137 mmol/L (132-148)
[2017-01-20 08:00] VITALS: RESP 20
[2017-01-20 08:38] VITALS: BP 128/87; PULSE 93; TEMP 97.3; O2SAT 97
[2017-01-20] MEDS ORDERED: Magnesium Sulfate 2 GM in Sodium Chloride 0.9% 100 ML IVPB ONE (09:00)
[2017-01-20] MEDS: Potassium Chloride 20 mEq ER Tab PO SCH ×2 (09:14→10:19)
[2017-01-20] MEDS: Multivitamin Therapeutic Tab PO SCH (09:14)
--- NOTE | 2017-01-20 12:14 | CP.PCM.PN ---
Subjective - Date & Time of Evaluation Date of Evaluation: 01/20/17 Time of Evaluation: 10:00 - Subjective Subjective: Seen and examined at the bedside earlier this morning, the chart was reviewed. Patient reported to be tolerating oral intake. Patient does complain of epigastric discomfort but no nausea or vomiting/hematemesis. Patient reports loose BMs no reports of any melena or bright red blood per rectum. No acute overnight events reported by nursing staff. Objective - Vital Signs/Intake and Output Vital Signs (last 24 hours): Temp Pulse Resp BP Pulse Ox 97.3 F L 93 H 20 128/87 97 01/20/17 08:37 01/20/17 08:37 01/20/17 08:37 01/20/17 08:37 01/20/17 08:37 Intake and Output: 01/20/17 01/20/17 06:59 18:59 Intake Total 840 Output Total 0 Balance 840 - Medications Medications: Current Medications Albuterol/Ipratropium (Duoneb 3 Mg/0.5 Mg (3 Ml) Ud) 3 ml IH Q4H PRN PRN Reason: Shortness of Breath Chlordiazepoxide (Librium) 10 mg PO BID SOPHIA PRN Reason: Protocol Folic Acid (Folic Acid) 1 mg PO DAILY [facility] Last Admin: 01/20/17 09:13 Dose: 1 mg Lorazepam (Ativan) 0.5 mg PO Q6 SOPHIA PRN Reason: Protocol Last Admin: 01/20/17 11:50 Dose: 0.5 mg Magnesium Oxide (Mag-Ox) 400 mg PO TID [facility] Multivitamins (Thera Tab) 1 tab PO 0800 [facility] Last Admin: 01/20/17 09:14 Dose: 1 tab Ondansetron HCl (Zofran Odt) 4 mg PO Q8H PRN PRN Reason: Nausea/Vomiting Pantoprazole Sodium (Protonix Ec Tab) 40 mg PO 0600 [facility] Last Admin: 01/20/17 05:57 Dose: 40 mg Potassium Chloride (K-Dur 20 Meq Er Tab) 20 meq PO BRK [facility] Last Admin: 01/20/17 09:14 Dose: 20 meq Potassium Chloride (K-Dur 20 Meq Er Tab) 20 meq PO 0800 [facility] Last Admin: 01/20/17 10:19 Dose: Not Given Thiamine HCl (Vitamin B1 Tab) 100 mg PO DAILY [facility] Last Admin: 01/20/17 09:13 Dose: 100 mg - Labs Labs: 01/20/17 06:10 01/20/17 06:10 PT 13.6 SECONDS (9.4-12.5) H 01/15/17 17:25 INR 1.24 (0.93-1.08) H 01/15/17 17:25 APTT 30.3 Seconds (25.1-36.5) 01/15/17 17:25 - Constitutional Appears: No Acute Distress - Eye Exam Eye Exam: Normal appearance. absent: Scleral icterus - ENT Exam ENT Exam: Mucous Membranes Moist - Respiratory Exam Respiratory Exam: NORMAL BREATHING PATTERN. absent: Respiratory Distress - Cardiovascular Exam Cardiovascular Exam: +S1, +S2 - GI/Abdominal Exam GI & Abdominal Exam: Distended, Soft, Tenderness (epigastric), Normal Bowel Sounds. absent: Guarding, Organomegaly, Rebound - Extremities Exam Extremities Exam: absent: Calf Tenderness, Pedal Edema - Neurological Exam Neurological Exam: Alert, Awake, Oriented x3 - Skin Skin Exam: Dry, Warm Assessment and Plan - Assessment and Plan (Free Text) Assessment: Assessment: Intractable nausea, episode of hematemesis, rule out Danielle-Mello tear, patient did have vomitus just morning but it was clear Esophageal ulcers Chronic EtOH History of chronic pancreatitis Hepatitis C Anemia COPD Plan: Continue Protonix daily, add Pepcid on PM diet as tolerated, soft On Ativan & Librium on multivitamin and folic acid Alcohol cessation Follow-up EGD biopsies Will need repeat endoscopy in 2 months time to follow up healing of ulcers, patient can be referred to GI clinic for further follow-up upon discharge, discussed with patient follow-up also need to be on PPI, and alcohol cessation. Seen and discussed with Dr. Kidd.
[2017-01-20] MEDS ORDERED: Magnesium Oxide 400 mg Tab UD PO SCH (14:00)
--- NOTE | 2017-01-20 16:08 | CP.PCM.DIS ---
<Aman Sutton - Last Filed: 01/20/17 16:04> Provider - Provider Date of Admission: 01/15/17 21:28 Attending physician: Kike Xiong MD Primary care physician: Tommie Alexander MD Consults: GI: Dr. Kidd Time Spent in preparation of Discharge (in minutes): 30 Diagnosis - Discharge Diagnosis (1) Coffee ground emesis Status: Acute (2) Alcohol intoxication Status: Acute Hospital Course - Lab Results Lab Results: Micro Results 01/18/17 20:15 Stool C. difficile Antigen & Toxin A,B (M - Final Most Recent Lab Values WBC 6.9 10^3/ul (4.5-11.0) 01/20/17 06:10 RBC 4.23 10^6/uL (3.5-6.1) 01/20/17 06:10 Hgb 9.8 g/dL (14.0-18.0) L 01/20/17 06:10 Hct 31.7 % (42.0-52.0) L 01/20/17 06:10 MCV 74.9 fl (80.0-105.0) L 01/20/17 06:10 MCH 23.2 pg (25.0-35.0) L 01/20/17 06:10 MCHC 30.9 g/dl (31.0-37.0) L 01/20/17 06:10 RDW 18.0 % (11.5-14.5) H 01/20/17 06:10 Plt Count 152 10^3/uL (120.0-450.0) 01/20/17 06:10 MPV 8.5 fl (7.0-11.0) 01/20/17 06:10 Gran % 59.0 % (50.0-68.0) 01/20/17 06:10 Lymph % (Auto) 23.7 % (22.0-35.0) 01/20/17 06:10 [place] % (Auto) 11.9 % (1.0-6.0) H 01/20/17 06:10 Eos % (Auto) 5.1 % (1.5-5.0) H 01/20/17 06:10 Baso % (Auto) 0.3 % (0.0-3.0) 01/20/17 06:10 Gran # 4.06 (1.4-6.5) 01/20/17 06:10 Lymph # 1.6 (1.2-3.4) 01/20/17 06:10 [place] # 0.8 (0.1-0.6) H 01/20/17 06:10 Eos # 0.4 (0.0-0.7) 01/20/17 06:10 Baso # 0.02 K/mm3 (0.0-2.0) 01/20/17 06:10 PT 13.6 SECONDS (9.4-12.5) H 01/15/17 17:25 INR 1.24 (0.93-1.08) H 01/15/17 17:25 APTT 30.3 Seconds (25.1-36.5) 01/15/17 17:25 pO2 176 mm/Hg (30-55) H 01/15/17 21:32 VBG pH 7.43 (7.32-7.43) 01/15/17 21:32 VBG pCO2 41.0 (40-60) 01/15/17 21:32 VBG HCO3 27.2 mmol/l (21-28) 01/15/17 21:32 VBG Total CO2 28.5 mmol.L (22-28) H 01/15/17 21:32 VBG O2 Sat (Calc) 99.3 % (40-65) H 01/15/17 21:32 VBG Base Excess 2.6 mmol/L (0.0-2.0) H 01/15/17 21:32 VBG Potassium 2.7 mmol/L (3.6-5.2) L 01/15/17 21:32 Sodium 131.0 mmol/L (132-148) L 01/15/17 21:32 Chloride 96.0 mmol/L (98-107) L 01/15/17 21:32 Glucose 191 mg/dl (75-110) H 01/15/17 21:32 Lactate 1.4 mmol/L (0.7-2.1) 01/15/17 21:32 FiO2 21.0 % 01/15/17 21:32 Sodium 137 mmol/L (132-148) 01/20/17 06:10 Potassium 3.9 mmol/L (3.6-5.0) 01/20/17 06:10 Chloride 99 mmol/L (98-107) 01/20/17 06:10 Carbon Dioxide 28 mmol/L (21-33) 01/20/17 06:10 Anion Gap 14 (10-20) 01/20/17 06:10 BUN 6 mg/dL (7-21) L 01/20/17 06:10 Creatinine 0.8 mg/dL (0.8-1.5) 01/20/17 06:10 Est GFR ( Amer) > 60 01/20/17 06:10 Est GFR (Non-Af Amer) > 60 01/20/17 06:10 Random Glucose 104 mg/dL (70-110) 01/20/17 06:10 Calcium 9.1 mg/dL (8.4-10.5) 01/20/17 06:10 Phosphorus 3.7 mg/dL (2.5-4.5) 01/20/17 06:10 Magnesium 1.6 mg/dL (1.7-2.2) L 01/20/17 06:10 Total Bilirubin 0.8 mg/dL (0.2-1.3) 01/20/17 06:10 Direct Bilirubin 0.6 mg/dL (0.0-0.4) H 01/15/17 17:25 AST 32 U/L (17-59) 01/20/17 06:10 ALT 36 U/L (7-56) 01/20/17 06:10 Alkaline Phosphatase 91 U/L (38-126) 01/20/17 06:10 Lactate Dehydrogenase 422 U/L (333-699) 01/16/17 16:20 Total Creatine Kinase 75 U/L (35-230) 01/16/17 16:20 Troponin I 0.02 ng/mL 01/16/17 16:20 NT-Pro-B Natriuret Pep 30.5 pg/mL (0-450) 01/15/17 17:25 Total Protein 7.0 g/dL (5.8-8.3) 01/20/17 06:10 Albumin 3.8 g/dL (3.0-4.8) 01/20/17 06:10 Globulin 3.2 gm/dL 01/20/17 06:10 Albumin/Globulin Ratio 1.2 (1.1-1.8) 01/20/17 06:10 Lipase 426 U/L (23-300) H 01/15/17 17:25 Venous Blood Potassium 2.7 mmol/L (3.6-5.2) L 01/15/17 21:32 Urine Color Yellow (YELLOW) 01/15/17 18:00 Urine Appearance Clear (CLEAR) 01/15/17 18:00 Urine pH 6.0 (4.7-8.0) 01/15/17 18:00 Ur Specific [place] <= 1.005 (1.005-1.035) 01/15/17 18:00 Urine Protein Negative mg/dL (<30 mg/dL) 01/15/17 18:00 Urine Glucose (UA) Negative mg/dL (NEGATIVE) 01/15/17 18:00 Urine Ketones Negative mg/dL (NEGATIVE) 01/15/17 18:00 Urine Blood Negative (NEGATIVE) 01/15/17 18:00 Urine Nitrate Negative (NEGATIVE) 01/15/17 18:00 Urine Bilirubin Negative (NEGATIVE) 01/15/17 18:00 Urine Urobilinogen 0.2 E.U./dL (<1 E.U./dL) 01/15/17 18:00 Ur Leukocyte Esterase Negative Vanda/uL (NEGATIVE) 01/15/17 18:00 Urine Opiates Screen Negative (NEGATIVE) 01/15/17 18:00 Urine Methadone Screen Negative (NEGATIVE) 01/15/17 18:00 Ur Barbiturates Screen Negative (NEGATIVE) 01/15/17 18:00 Ur Phencyclidine Scrn Negative (NEGATIVE) 01/15/17 18:00 Ur Amphetamines Screen Negative (NEGATIVE) 01/15/17 18:00 U Benzodiazepines Scrn Positive (NEGATIVE) H 01/15/17 18:00 U Oth Cocaine Metabols Negative (NEGATIVE) 01/15/17 18:00 U Cannabinoids Screen Negative (NEGATIVE) 01/15/17 18:00 Alcohol, Quantitative 266 mg/dL (0-10) H 01/15/17 17:25 Blood Type O POSITIVE 01/16/17 06:20 Antibody Screen Negative 01/16/17 06:20 BBK History Checked Patient has bt 01/16/17 06:20 - Hospital Course Hospital Course: Patient was admitted on 01/15 for alcohol intoxication and recent history of coffee ground emesis. Patient was placed on CIWA protocol, scheduled ativan and lirbium and brought to the general medical floor for further evaluation and work up for alcohol withdrawl symptoms and suspected upper GI bleed. In ED abdomen/pelvis CT(01/15) was done showing esophageal wall thickening, fatty liver, mild varicies with in upper abdomen, mild atherosclerotic disease, and small hiatal hernia. GI was consulted for the patient with concern for upper GI bleed. An EGD was preformed on 01/20 showing grade D and grad C esophagitis, polypod erthematous mucosa a the gastroesophageal junction, mild inflammation found at the gastric body, gastric antrum and duodenal bulb. Patient was continued on protonix and advised to follow up outpatient for repeat EGD and potential colonoscopy. Patient's alcohol withdrawl symptoms were appropriately controlled with librium and ativan with appropriate tapering of the medication during his clinical course. Through out his stay the patient was educated and counseled on alcohol cessation. The patient was understanding and in agreement with conversations On 01/20 patient was found to show clinical improvement of his suspected upper GI bleed with cessation of emesis. Patient was noted to have normal heart rate, absence of visual or auditory hallucinations, minimal tremulous of his upper extremities and steady based gait. Patient was found to be hemodynamically stable and adequate for discharge with appropriate follow up on an outpatient basis. The patient was agreeable and understanding with plan. - Date & Time of H&P Date of H&P: 01/15/17 Time of H&P: 22:49 Discharge Exam - Head Exam Head Exam: ATRAUMATIC, NORMOCEPHALIC - Eye Exam Eye Exam: EOMI, PERRL Pupil Exam: PERRL - ENT Exam ENT Exam: Mucous Membranes Moist - Neck Exam Neck exam: Full Rom - Respiratory Exam Respiratory Exam: Clear to PA & Lateral, NORMAL BREATHING PATTERN. absent: Rales, Rhonchi, Wheezes - Cardiovascular Exam Cardiovascular Exam: REGULAR RHYTHM, +S1, +S2. absent: Tachycardia, Systolic Murmur - GI/Abdominal Exam GI & Abdominal Exam: Normal Bowel Sounds, Soft. absent: Tenderness - Extremities Exam Extremities exam: normal inspection - Back Exam Back exam: NORMAL INSPECTION. absent: CVA tenderness (L), CVA tenderness (R) - Neurological Exam Neurological exam: Alert, CN II-XII Intact, Normal Gait, Oriented x3 - Psychiatric Exam Psychiatric exam: Normal Affect, Normal Mood - Skin Skin Exam: Dry, Intact, Normal Color, Warm Discharge Plan - Discharge Medications Prescriptions: Folic Acid 1 mg PO DAILY 14 Days #14 tab Magnesium Oxide [Mag-Ox] 400 mg PO BID 3 Days #6 tab Pantoprazole [Protonix EC Tab] 40 mg PO 0600 14 Days #14 ect Thiamine [Vitamin B1 Tab] 100 mg PO DAILY 14 Days #14 tab - Follow Up Plan Condition: FAIR Disposition: HOME/ ROUTINE Instructions: Chest Pain (ED), Alcohol Intoxication (DC), Esophagitis (DC) Additional Instructions: 1. Follow up with PMD in one week upon discharge 2. Take medications as prescribed to you 3. Please refrain from alcohol consumption 4. Return to the emergency department if your symptoms worsen or return Referrals: Tommie Alexander MD [Primary Care Provider] - <Kike Xiong - Last Filed: 01/21/17 10:21> Provider - Provider Date of Admission: 01/15/17 21:28 Attending physician: Kike Xiong MD Primary care physician: Tommie Alexander MD [facility] Course - Lab Results Lab Results: Micro Results 01/18/17 20:15 Stool C. difficile Antigen & Toxin A,B (M - Final Most Recent Lab Values WBC 6.9 10^3/ul (4.5-11.0) 01/20/17 06:10 RBC 4.23 10^6/uL (3.5-6.1) 01/20/17 06:10 Hgb 9.8 g/dL (14.0-18.0) L 01/20/17 06:10 Hct 31.7 % (42.0-52.0) L 01/20/17 06:10 MCV 74.9 fl (80.0-105.0) L 01/20/17 06:10 MCH 23.2 pg (25.0-35.0) L 01/20/17 06:10 MCHC 30.9 g/dl (31.0-37.0) L 01/20/17 06:10 RDW 18.0 % (11.5-14.5) H 01/20/17 06:10 Plt Count 152 10^3/uL (120.0-450.0) 01/20/17 06:10 MPV 8.5 fl (7.0-11.0) 01/20/17 06:10 Gran % 59.0 % (50.0-68.0) 01/20/17 06:10 Lymph % (Auto) 23.7 % (22.0-35.0) 01/20/17 06:10 [place] % (Auto) 11.9 % (1.0-6.0) H 01/20/17 06:10 Eos % (Auto) 5.1 % (1.5-5.0) H 01/20/17 06:10 Baso % (Auto) 0.3 % (0.0-3.0) 01/20/17 06:10 Gran # 4.06 (1.4-6.5) 01/20/17 06:10 Lymph # 1.6 (1.2-3.4) 01/20/17 06:10 [place] # 0.8 (0.1-0.6) H 01/20/17 06:10 Eos # 0.4 (0.0-0.7) 01/20/17 06:10 Baso # 0.02 K/mm3 (0.0-2.0) 01/20/17 06:10 PT 13.6 SECONDS (9.4-12.5) H 01/15/17 17:25 INR 1.24 (0.93-1.08) H 01/15/17 17:25 APTT 30.3 Seconds (25.1-36.5) 01/15/17 17:25 pO2 176 mm/Hg (30-55) H 01/15/17 21:32 VBG pH 7.43 (7.32-7.43) 01/15/17 21:32 VBG pCO2 41.0 (40-60) 01/15/17 21:32 VBG HCO3 27.2 mmol/l (21-28) 01/15/17 21:32 VBG Total CO2 28.5 mmol.L (22-28) H 01/15/17 21:32 VBG O2 Sat (Calc) 99.3 % (40-65) H 01/15/17 21:32 VBG Base Excess 2.6 mmol/L (0.0-2.0) H 01/15/17 21:32 VBG Potassium 2.7 mmol/L (3.6-5.2) L 01/15/17 21:32 Sodium 131.0 mmol/L (132-148) L 01/15/17 21:32 Chloride 96.0 mmol/L (98-107) L 01/15/17 21:32 Glucose 191 mg/dl (75-110) H 01/15/17 21:32 Lactate 1.4 mmol/L (0.7-2.1) 01/15/17 21:32 FiO2 21.0 % 01/15/17 21:32 Sodium 137 mmol/L (132-148) 01/20/17 06:10 Potassium 3.9 mmol/L (3.6-5.0) 01/20/17 06:10 Chloride 99 mmol/L (98-107) 01/20/17 06:10 Carbon Dioxide 28 mmol/L (21-33) 01/20/17 06:10 Anion Gap 14 (10-20) 01/20/17 06:10 BUN 6 mg/dL (7-21) L 01/20/17 06:10 Creatinine 0.8 mg/dL (0.8-1.5) 01/20/17 06:10 Est GFR ( Amer) > 60 01/20/17 06:10 Est GFR (Non-Af Amer) > 60 01/20/17 06:10 Random Glucose 104 mg/dL (70-110) 01/20/17 06:10 Calcium 9.1 mg/dL (8.4-10.5) 01/20/17 06:10 Phosphorus 3.7 mg/dL (2.5-4.5) 01/20/17 06:10 Magnesium 1.6 mg/dL (1.7-2.2) L 01/20/17 06:10 Total Bilirubin 0.8 mg/dL (0.2-1.3) 01/20/17 06:10 Direct Bilirubin 0.6 mg/dL (0.0-0.4) H 01/15/17 17:25 AST 32 U/L (17-59) 01/20/17 06:10 ALT 36 U/L (7-56) 01/20/17 06:10 Alkaline Phosphatase 91 U/L (38-126) 01/20/17 06:10 Lactate Dehydrogenase 422 U/L (333-699) 01/16/17 16:20 Total Creatine Kinase 75 U/L (35-230) 01/16/17 16:20 Troponin I 0.02 ng/mL 01/16/17 16:20 NT-Pro-B Natriuret Pep 30.5 pg/mL (0-450) 01/15/17 17:25 Total Protein 7.0 g/dL (5.8-8.3) 01/20/17 06:10 Albumin 3.8 g/dL (3.0-4.8) 01/20/17 06:10 Globulin 3.2 gm/dL 01/20/17 06:10 Albumin/Globulin Ratio 1.2 (1.1-1.8) 01/20/17 06:10 Lipase 426 U/L (23-300) H 01/15/17 17:25 Venous Blood Potassium 2.7 mmol/L (3.6-5.2) L 01/15/17 21:32 Urine Color Yellow (YELLOW) 01/15/17 18:00 Urine Appearance Clear (CLEAR) 01/15/17 18:00 Urine pH 6.0 (4.7-8.0) 01/15/17 18:00 Ur Specific [place] <= 1.005 (1.005-1.035) 01/15/17 18:00 Urine Protein Negative mg/dL (<30 mg/dL) 01/15/17 18:00 Urine Glucose (UA) Negative mg/dL (NEGATIVE) 01/15/17 18:00 Urine Ketones Negative mg/dL (NEGATIVE) 01/15/17 18:00 Urine Blood Negative (NEGATIVE) 01/15/17 18:00 Urine Nitrate Negative (NEGATIVE) 01/15/17 18:00 Urine Bilirubin Negative (NEGATIVE) 01/15/17 18:00 Urine Urobilinogen 0.2 E.U./dL (<1 E.U./dL) 01/15/17 18:00 Ur Leukocyte Esterase Negative Vanda/uL (NEGATIVE) 01/15/17 18:00 Urine Opiates Screen Negative (NEGATIVE) 01/15/17 18:00 Urine Methadone Screen Negative (NEGATIVE) 01/15/17 18:00 Ur Barbiturates Screen Negative (NEGATIVE) 01/15/17 18:00 Ur Phencyclidine Scrn Negative (NEGATIVE) 01/15/17 18:00 Ur Amphetamines Screen Negative (NEGATIVE) 01/15/17 18:00 U Benzodiazepines Scrn Positive (NEGATIVE) H 01/15/17 18:00 U Oth Cocaine Metabols Negative (NEGATIVE) 01/15/17 18:00 U Cannabinoids Screen Negative (NEGATIVE) 01/15/17 18:00 Alcohol, Quantitative 266 mg/dL (0-10) H 01/15/17 17:25 Blood Type O POSITIVE 01/16/17 06:20 Antibody Screen Negative 01/16/17 06:20 BBK History Checked Patient has bt 01/16/17 06:20 Attending/Attestation - Attestation I have personally seen and examined this patient.: Yes I have fully participated in the care of the patient.: Yes I have reviewed all pertinent clinical information, including history, physical exam and plan: Yes Notes (Text): 01/21/17 10:20 Patient was seen and examined with medical record administrator. Agreed with resident assessment and plan. 56 year old male with past medical history of erosive esophagitis, chronic pancreatitis, alcohol abuse, and COPD was admitted with coffee ground emesis, chest pain and alcohol withdrawal. Serial cardiac enzymes were negative and ACS was ruled out. He is s/p EGD with findings showing esophagitis. Biopsy is pending. Patient is on PPI, was advised not to use NSAID and avoid alcohol, Patient alcohol withdrawal are improved. He was evaluated by Physical therapy prior to discharge. The issue of ongoing alcohol abuse was discussed in detail with him Prognosis is guarded. Management plan was discussed in detail with patient Education was provided.
[2017-01-20] MEDS ORDERED: Influenza Vaccine 60 mcg/0.5 mL SYR (4YR UP) IM ONE (16:10)
== END 2017-01-20 17:52 | disposition home or self-care (01) | DRG 174 ==
LOC: ED 16:37 → ERH 21:28 → 3RSO 01-16 00:01
PROVIDERS: ADMIT Internal Medicine; ATTEND Internal Medicine
PROC: 0DB48ZX Excision of Esophagogastric Junction, Via Natural or Artificial Opening Endoscopic, Diagnostic (ICD-10-PCS; principal; 2017-01-17 16:00)
DX: K92.0 Hematemesis (principal); F10.239 Alcohol dependence with withdrawal, unspecified; K22.10 Ulcer of esophagus without bleeding; K86.0 Alcohol-induced chronic pancreatitis; E87.6 Hypokalemia; B19.20 Unspecified viral hepatitis C without hepatic coma; J44.9 Chronic obstructive pulmonary disease, unspecified; D50.9 Iron deficiency anemia, unspecified; E11.9 Type 2 diabetes mellitus without complications; F17.200 Nicotine dependence, unspecified, uncomplicated; Y90.8 Blood alcohol level of 240 mg/100 ml or more; K29.50 Unspecified chronic gastritis without bleeding; K29.80 Duodenitis without bleeding; Z88.0 Allergy status to penicillin

== ENCOUNTER 2017-02-13 17:14 | Inpatient (IN) | payer MEDICAID ==
[2017-02-13 17:15] VITALS: BMI 31.4
[2017-02-13] MEDS ORDERED: Famotidine 20mg/50ml 20 MG in Premixed IV 50 EA IVPB STA (17:44)
--- NOTE | 2017-02-13 17:57 | ED PDOC ---
Arrival/HPI - General Chief Complaint: Alcohol Ingestion Time Seen by Provider: 02/13/17 17:23 Historian: Patient - History of Present Illness Narrative History of Present Illness (Text): 02/13/17 17:57 A 56 year old male, whose past medical history includes pancreatitis and alcohol abuse, was brought in by EMS to the emergency department for alcohol intoxication. Patient presents to the emergency department complaining of chest pain, back pain and headache that developed earlier today. Patient reports he drinks daily, last drink was today. Denies any injuries. Patient notes he thinks he fell yesterday and hit the back of his head. Denies smoking or drug use. Denies any history of cardiac disease or diabetes. Patient denies any other complaints at this time. PMD: Dr. Desir Symptom Onset: Sudden Symptom Course: Unchanged Activities at Onset: Rest Context: Home Past Medical History - Provider Review Nursing Documentation Reviewed: Yes - Past History Past History: No Previous - Infectious Disease Hx of Infectious Diseases: None - Tetanus Immunization Tetanus Immunization: Unknown - Reproductive Currently : No - Cardiac Hx Cardiac Disorders: Yes Hx Hypertension: Yes - Pulmonary Hx Chronic Obstructive Pulmonary Disease (COPD): Yes - Neurological HX Cerebrovascular Accident: No - HEENT Hx HEENT Disorder: No - Renal Hx Renal Disorder: No - Endocrine/Metabolic Hx Diabetes Mellitus Type 2: Yes - Hematological/Oncological Hx Blood Disorders: Yes - Integumentary Hx Dermatological Disorder: Yes - Musculoskeletal/Rheumatological Hx Musculoskeletal Disorders: Yes Hx Falls: Yes - Gastrointestinal Hx Gastrointestinal Disorders: Yes (GI BLEED) Hx Gall Bladder Disease: Yes Hx Gastroesophageal Reflux: Yes Hx Pancreatitis: Yes Other/Comment: X2 HERNIA REPAIR - Genitourinary/Gynecological Hx Genitourinary Disorders: Yes (ORCHIECTOMY) - Psychiatric Hx Psychophysiologic Disorder: Yes Hx Anxiety: Yes Hx Depression: Yes Hx Substance Use: No (DENIES) - Surgical History Hx Cardiac Catheterization: No Hx Coronary Stent: No Hx Musculoskeletal Surgery: Yes (Left hand surgery DENIES) - Anesthesia Hx Anesthesia: Yes - Suicidal Assessment Feels Threatened In Home Enviroment: No Family/Social History - Physician Review Nursing Documentation Reviewed: Yes Family/Social History: No Known Family HX Smoking Status: Current Some Days Smoker Hx Alcohol Use: Yes Frequency of alcohol use: Daily Amount per day: 10 Hx Substance Use: No (DENIES) Hx Substance Use Treatment: No Allergies/Home Meds Allergies/Adverse Reactions: Allergies Penicillins Allergy (Verified 02/13/17 17:31) RASH Home Medications: Home Meds Medication Instructions Recorded Confirmed No Known Home Med 02/13/17 02/13/17 Review of Systems - Physician Review All systems were reviewed & negative as marked: Yes - Review of Systems Cardiovascular: Chest Pain Musculoskeletal: Back Pain Neurological: Headache Physical Exam Vital Signs Reviewed: Yes Vital Signs Temp Pulse Resp BP Pulse Ox 02/13/17 17:24 98.2 F 88 18 139/102 H 99 Temperature: Afebrile Blood Pressure: Hypertensive Pulse: Regular Respiratory Rate: Normal Appearance: Positive for: Comfortable Pain Distress: None Mental Status: Positive for: Alert and Oriented X 3 - Systems Exam Head: Present: Atraumatic, Normocephalic, Other (small superficial abrasion to back of head) Pupils: Present: PERRL Extroacular Muscles: Present: EOMI Conjunctiva: Present: Normal Mouth: Present: Moist Mucous Membranes Respiratory/Chest: Present: Clear to Auscultation, Good Air Exchange. No: Respiratory Distress, Accessory Muscle Use Cardiovascular: Present: Regular Rate and Rhythm, Normal S1, S2. No: Murmurs Abdomen: Present: Tenderness (diffuse abdominal tenderness; no palpable masses) , Normal Bowel Sounds. No: Distention, Peritoneal Signs Upper Extremity: Present: Normal Inspection. No: Cyanosis, Edema Lower Extremity: Present: Normal Inspection. No: Edema Neurological: Present: GCS=15, CN II-XII Intact, Speech Normal Skin: Present: Warm, Dry, Normal Color. No: Rashes Psychiatric: Present: Alert, Oriented x 3, Normal Insight, Normal Concentration Medical Decision Making ED Course and Treatment: 02/13/17 17:55 Impression: A 56 year old male with alcohol intoxication, complaining of chest pain, back pain and headache. Plan: -- EKG -- labs -- Zofran, Pepcid -- Reassess and disposition Prior Visits: Notes and results from previous visits were reviewed. Patient was last seen in the emergency department on 01/24/17 for evaluation of chest pain. Progress Notes: 02/13/17 18:54 EKG: Ordered, reviewed, and independently interpreted the EKG. Rate : 88 BPM Rhythm : NSR Interpretation : No ischemic changes 02/13/17 19:41 Alcohol level is high at 320, remains intoxicated, symptoms improved and patient is stable. 02/13/17 21:23 Patient is comfortable; no further vomiting but remains intoxicated. Librium given as prophylaxis, patient has history withdrawal seizures. Dr Martinez to follow to sobriety. - Lab Interpretations Lab Results: 02/13/17 18:31 02/13/17 18:31 Lab Results 02/13/17 18:31: Alcohol, Quantitative 320 H* 02/13/17 18:31: Sodium 130 L, Potassium 3.4 L, Chloride 88 L, Carbon Dioxide 30 , Anion Gap 15, BUN 7, Creatinine 0.7 L, Est GFR ( Amer) > 60, Est GFR ( Non-Af Amer) > 60, Random Glucose 148 H, Calcium 9.0, Magnesium 1.9, Total Bilirubin 0.8, AST 41, ALT 33, Alkaline Phosphatase 104, Total Protein 8.7 H, Albumin 4.4, Globulin 4.3, Albumin/Globulin Ratio 1.0 L, Amylase 106, Lipase 284 02/13/17 18:31: WBC 11.5 H, RBC 4.64, Hgb 10.5 L, Hct 33.0 L, MCV 71.1 L D, MCH 22.6 L, MCHC 31.8, RDW 17.7 H, Plt Count 210, MPV 8.5, Gran % 85.0 H, Lymph % ( Auto) 7.7 L, [place] % (Auto) 7.1 H, Eos % (Auto) 0.0 L, Baso % (Auto) 0.2, Gran # 9.75 H, Lymph # 0.9 L, [place] # 0.8 H, Eos # 0.0, Baso # 0.02 I have reviewed the lab results: Yes - EKG Interpretation Interpreted by ED Physician: Yes Type: 12 lead EKG - Medication Orders Current Medication Orders: Discontinued Medications Chlordiazepoxide (Librium) 50 mg PO STAT STA PRN Reason: Protocol Stop: 02/13/17 20:57 Last Admin: 02/13/17 21:08 Dose: 50 mg Famotidine 20 mg/ (Miscellaneous) 50 mls @ 100 mls/hr IVPB STAT STA Stop: 02/13/17 18:13 Last Admin: 02/13/17 18:43 Dose: 100 mls/hr eMAR Start Stop Document 02/13/17 18:43 MR (Rec: 02/13/17 18:43 [id number]) Intravenous Solution Start Date 02/13/17 Start Time 18:43 End Date 02/13/17 End time 19:13 Total Infusion Time 30 Ondansetron HCl (Zofran Inj) 4 mg IVP STAT STA Stop: 02/13/17 17:46 Last Admin: 02/13/17 18:43 Dose: 4 mg IVP Administration Document 02/13/17 18:43 MR (Rec: 02/13/17 18:43 [id number]) Charges for Administration # of IVP Administrations 1 Potassium Chloride (K-Dur 20 Meq Er Tab) 20 meq PO STAT STA Stop: 02/13/17 19:10 Last Admin: 02/13/17 19:38 Dose: 20 meq Thiamine HCl (Vitamin B1 Inj) 100 mg IM STAT STA Stop: 02/13/17 20:54 - Scribe Statement The provider has reviewed the documentation as recorded by the Mary Ballesteros Provider Scribe Attestation: All medical record entries made by the Scribe were at my direction and personally dictated by me. I have reviewed the chart and agree that the record accurately reflects my personal performance of the history, physical exam, medical decision making, and the department course for this patient. I have also personally directed, reviewed, and agree with the discharge instructions and disposition. Disposition/Present on Arrival - Present on Arrival Any Indicators Present on Arrival: No History of DVT/PE: No History of Uncontrolled Diabetes: No Urinary Catheter: No History of Decub. Ulcer: No History Surgical Site Infection Following: None - Disposition Have Diagnosis and Disposition been Completed?: No Diagnosis: Alcohol intoxication, Gastritis due to alcohol without hemorrhage, Alcohol abuse Disposition Time: 21:25 Patient Problems: Current Active Problems Problem Status Onset ETOH abuse Chronic Alcohol intoxication Acute Gastritis due to alcohol without hemorrhage Acute Condition: STABLE Referrals: Chuy Desir MD [Primary Care Provider] - Follow up with primary Forms: [employer] (Vietnamese)
[2017-02-13 18:55] LABS: BASO # 0.02 K/mm3 (0.0-2.0); BASO % 0.2 % (0.0-3.0); GRAN # 9.75 (1.4-6.5); LYMPH # 0.9 (1.2-3.4); LYMPH % 7.7 % (22.0-35.0); MEAN CELL VOLUME 71.1 fl (80.0-105.0); MEAN CORPUSCULAR HEMOGLOBIN 22.6 pg (25.0-35.0); MEAN CORPUSCULAR HGB CONC 31.8 g/dl (31.0-37.0); MEAN PLATELET VOLUME 8.5 fl (7.0-11.0); MONO # 0.8 (0.1-0.6); MONO % 7.1 % (1.0-6.0); RED CELL DISTRIBUTION WIDTH 17.7 % (11.5-14.5); WHITE BLOOD COUNT 11.5 10^3/ul (4.5-11.0)
[2017-02-13 19:07] LABS: ALKALINE PHOSPHATASE 104 U/L (38-126); ALT/SGPT 33 U/L (7-56); AMYLASE 106 U/L (35-125); AST/SGOT 41 U/L (17-59); BILIRUBIN,TOTAL 0.8 mg/dL (0.2-1.3); BLOOD UREA NITROGEN 7 mg/dL (7-21); CARBON DIOXIDE 30 mmol/L (21-33); CHLORIDE 88 mmol/L (98-107); GFR AFRICAN-AMERICAN > 60; GLUCOSE,RANDOM 148 mg/dL (70-110); LIPASE 284 U/L (23-300); MAGNESIUM 1.9 mg/dL (1.7-2.2); POTASSIUM 3.4 mmol/L (3.6-5.0); SODIUM 130 mmol/L (132-148); TOTAL PROTEIN 8.7 g/dL (5.8-8.3)
[2017-02-13] MEDS ORDERED: Potassium Chloride 20 mEq ER Tab PO STA (19:09)
[2017-02-13] MEDS ORDERED: Thiamine 100 mg/ml Inj IM STA (20:53)
--- NOTE | 2017-02-13 21:40 | ED PDOC ---
Physical Exam Vital Signs Temp Pulse Resp BP Pulse Ox 02/14/17 01:20 114 H 16 103/62 95 02/13/17 21:15 97 H 18 129/84 97 02/13/17 17:24 98.2 F 88 18 139/102 H 99 Medical Decision Making ED Course and Treatment: 02/13/17 21:38 Case endorsed to me by Dr. Mcgregor. Patient is intoxicated and pending sobriety. 02/14/17 02:12 Patient feeling tremulous with heart rate near 120. Will give additional ativan for etoh withdrawal (previously given librium) and need admission, given history of etoh withdrawal seizures. 02/14/17 02:[address] Nj for admission to the hospitalist service. - Lab Interpretations Lab Results: 02/13/17 18:31 02/13/17 18:31 Lab Results 02/13/17 18:31: Alcohol, Quantitative 320 H* 02/13/17 18:31: Sodium 130 L, Potassium 3.4 L, Chloride 88 L, Carbon Dioxide 30 , Anion Gap 15, BUN 7, Creatinine 0.7 L, Est GFR ( Amer) > 60, Est GFR ( Non-Af Amer) > 60, Random Glucose 148 H, Calcium 9.0, Magnesium 1.9, Total Bilirubin 0.8, AST 41, ALT 33, Alkaline Phosphatase 104, Total Protein 8.7 H, Albumin 4.4, Globulin 4.3, Albumin/Globulin Ratio 1.0 L, Amylase 106, Lipase 284 02/13/17 18:31: WBC 11.5 H, RBC 4.64, Hgb 10.5 L, Hct 33.0 L, MCV 71.1 L D, MCH 22.6 L, MCHC 31.8, RDW 17.7 H, Plt Count 210, MPV 8.5, Gran % 85.0 H, Lymph % ( Auto) 7.7 L, Greer % (Auto) 7.1 H, Eos % (Auto) 0.0 L, Baso % (Auto) 0.2, Gran # 9.75 H, Lymph # 0.9 L, Greer # 0.8 H, Eos # 0.0, Baso # 0.02 - RAD Interpretation Radiology Orders: 02/14/17 02:11 CHEST PORTABLE [RAD] Stat - Medication Orders Current Medication Orders: Discontinued Medications Chlordiazepoxide (Librium) 50 mg PO STAT STA PRN Reason: Protocol Stop: 02/13/17 20:57 Last Admin: 02/13/17 21:08 Dose: 50 mg Famotidine 20 mg/ (Miscellaneous) 50 mls @ 100 mls/hr IVPB STAT STA Stop: 02/13/17 18:13 Last Admin: 02/13/17 18:43 Dose: 100 mls/hr eMAR Start Stop Document 02/13/17 18:43 MR (Rec: 02/13/17 18:43 MR [id number]) Intravenous Solution Start Date 02/13/17 Start Time 18:43 End Date 02/13/17 End time 19:13 Total Infusion Time 30 Lorazepam (Ativan) 2 mg IVP ONCE STA PRN Reason: Protocol Stop: 02/14/17 01:33 Last Admin: 02/14/17 01:40 Dose: 2 mg IVP Administration Document 02/14/17 01:40 HI (Rec: 02/14/17 01:40 HI [id number]) Charges for Administration # of IVP Administrations 1 Ondansetron HCl (Zofran Inj) 4 mg IVP STAT STA Stop: 02/13/17 17:46 Last Admin: 02/13/17 18:43 Dose: 4 mg IVP Administration Document 02/13/17 18:43 MR (Rec: 02/13/17 18:43 MR [id number]) Charges for Administration # of IVP Administrations 1 Potassium Chloride (K-Dur 20 Meq Er Tab) 20 meq PO STAT STA Stop: 02/13/17 19:10 Last Admin: 02/13/17 19:38 Dose: 20 meq Thiamine HCl (Vitamin B1 Inj) 100 mg IM STAT STA Stop: 02/13/17 20:54 Last Admin: 02/13/17 21:24 Dose: 100 mg IM Administration Charges Document 02/13/17 21:24 HI (Rec: 02/13/17 21:24 HI [id number]) Charges for Administration # of IM Administrations 1 Disposition/Present on Arrival - Present on Arrival Any Indicators Present on Arrival: No History of DVT/PE: No History of Uncontrolled Diabetes: No Urinary Catheter: No History of Decub. Ulcer: No History Surgical Site Infection Following: None - Disposition Have Diagnosis and Disposition been Completed?: Yes Diagnosis: Alcohol withdrawal Disposition: HOSPITALIZED Disposition Time: 14:20 Patient Plan: Admission, Telemetry Patient Problems: Current Active Problems Problem Status Onset Alcohol intoxication Acute Alcohol withdrawal Acute ETOH abuse Chronic Condition: FAIR Referrals: Chuy Desir MD [Primary Care Provider] - Follow up with primary Forms: [employer] (Swedish)
[2017-02-14] MEDS: Folic Acid 1 MG, Thiamine 100 MG, Multivitamin (MVI) 10 ML in Dextrose 5% In Water 1,00... IV SCH ×3 (03:33→23:33)
--- NOTE | 2017-02-14 04:24 | CP.PCM.HP ---
<Kyle Ferguson - Last Filed: 02/14/17 04:56> History of Present Illness - History of Present Illness History of Present Illness: Mr. Royal is a 56yo M PMH chronic ETOH abuse, HTN, GERD, asthma, and anemia who presents to ED with diffuse abdominal pain and alcohol withdrawal. pt is a poor historian but states that his last drink was 12 hours ago and included at least four 24oz beers and vodka. Patient states that he was staying with in his friend 's garage as he is homeless. he denies chest pain, vomiting, diarrhea, fevers/ chills, constipation, weakness, headaches or vision changes. he does admit to feeling tremors. 12-pt ROS was limited due to pt's state, however, it is otherwise negative. In ED, pt's ETOH level was 320. Patient was given Librium and later Ativan when he became tachycardic. PMD: Dr. Painting PMH: as above PSH: R incarcerated inguinal hernia repair and R orchiectomy Meds: MV, thiamine and folic acid SHx: admits to daily ETOH use, denies tobacco or substance abuse; lives in his friend's basement FH: Dad Rectal cancer, Mother: Ovarian CA Present on Admission - Present on Admission Any Indicators Present on Admission: No History of DVT/PE: No History of Uncontrolled Diabetes: No Urinary Catheter: No Decubitus Ulcer Present: No Review of Systems - Review of Systems Systems not reviewed;Unavailable: Uncooperative All systems: reviewed and no additional remarkable complaints except (as per HPI ) Past Patient History - Infectious Disease Hx of Infectious Diseases: None - Tetanus Immunizations Tetanus Immunization: Unknown - Past Medical History & Family History Past Medical History?: Yes - Past Social History Smoking Status: Former Smoker Alcohol: > 2 Drinks/Day (beer and vodka) Drugs: Denies Home Situation {Lives}: Homeless - CARDIAC Hx Cardiac Disorders: Yes Hx Hypertension: Yes - PULMONARY Hx Respiratory Disorders: Yes Hx Chronic Obstructive Pulmonary Disease (COPD): Yes - NEUROLOGICAL Hx Neurological Disorder: No - HEENT Hx HEENT Problems: No - RENAL Hx Chronic Kidney Disease: No - ENDOCRINE/METABOLIC Hx Endocrine Disorders: No - HEMATOLOGICAL/ONCOLOGICAL Hx Blood Disorders: Yes Hx Anemia: Yes Hx Hepatitis C: No - INTEGUMENTARY Hx Dermatological Problems: No - MUSCULOSKELETAL/RHEUMATOLOGICAL Hx Musculoskeletal Disorders: Yes Hx Back Pain: Yes Hx Falls: No - GASTROINTESTINAL Hx Gastrointestinal Disorders: Yes Hx Gastroesophageal Reflux: Yes Hx Pancreatitis: Yes - GENITOURINARY/GYNECOLOGICAL Hx Genitourinary Disorders: No - PSYCHIATRIC Hx Psychophysiologic Disorder: Yes Hx Anxiety: Yes Hx Substance Use: Yes - SURGICAL HISTORY Hx Surgeries: Yes - ANESTHESIA Hx Anesthesia: Yes Meds Allergies/Adverse Reactions: Allergies Allergy/AdvReac Type Severity Reaction Status Date / Time Penicillins Allergy RASH Verified 02/13/17 17:31 Physical Exam - Constitutional Appears: Non-toxic, No Acute Distress, Unkempt - Head Exam Head Exam: ATRAUMATIC, NORMAL INSPECTION, NORMOCEPHALIC - Eye Exam Eye Exam: EOMI, Normal appearance, PERRL Pupil Exam: NORMAL ACCOMODATION - ENT Exam ENT Exam: Mucous Membranes Moist, Normal Exam - Neck Exam Neck exam: Positive for: Normal Inspection - Respiratory Exam Respiratory Exam: Clear to Auscultation Bilateral, NORMAL BREATHING PATTERN. absent: Rales, Rhonchi, Wheezes - Cardiovascular Exam Cardiovascular Exam: Tachycardia, REGULAR RHYTHM, +S1, +S2. absent: Gallop, JVD , Rubs, Systolic Murmur - GI/Abdominal Exam GI & Abdominal Exam: Normal Bowel Sounds, Soft. absent: Distended, Tenderness - Extremities Exam Extremities exam: Positive for: normal inspection - Back Exam Back exam: NORMAL INSPECTION - Neurological Exam Neurological exam: Alert, Oriented x3 - Psychiatric Exam Psychiatric exam: Normal Affect, Normal Mood - Skin Skin Exam: Normal Color, Warm Results - Vital Signs Recent Vital Signs: Last Vital Signs Temp 98.2 F 02/13/17 17:24 Pulse 120 H 02/14/17 02:42 Resp 20 02/14/17 03:32 BP 111/70 02/14/17 02:42 Pulse Ox 97 02/14/17 02:42 - Labs Result Diagrams: 02/13/17 18:31 02/13/17 18:31 Assessment & Plan - Assessment and Plan (Free Text) Assessment: 56yo M PMH chronic ETOH abuse, HTN, GERD, asthma, and anemia who presents to ED with diffuse abdominal pain and alcohol withdrawal. ETOH level in ED was 320. Leukocytosis is likely reactive due to pt being afebrile and unremarkable CXR. Hypokalemia noted with no EKG changes, and will also be treated. It is important to note that prior charts have mentioned that pt is a diabetic and positive hepatitis C, however, hemoglobin A1C was 5.9 in 01/25/17, and hepatitis panel from 07/15/2016 showed negative hepatitis A, B, and C. Plan: 1. abdominal pain likely 2/2 ETOH withdrawal - banana bag - Librium SOPHIA - Ativan PRN - seizure precautions - fall risk - aspiration precautions - CIWA protocol - zofran prn - neurochecks - EKG in ED showed NSR with no ST wave changes 2. Leukocytosis - likely reactive - CXR is negative - pt remains afebrile - will trend WBC and monitor for signs of infection 3. Hx HTN - cont to monitor VS - no meds to be started at this time 4. asthma - currently no wheezing and in no respiratory distress - monitor O2 Sat 5. Microcytic anemia - last workup showed low Iron, normal folate and B12 (04/2016) - likely 2/2 malnutrition due to chronic ETOH abuse 6. Hx GERD - cont PTX PTX/Heparin HHD Patient was seen, examined and discussed with attending, Dr. Ondina Ferguson PGY1 - Date & Time Date: 02/14/17 Time: 02:59 <Oren Nj MD - Last Filed: 02/14/17 06:40> Results - Vital Signs Recent Vital Signs: Last Vital Signs Temp 98.2 F 02/13/17 17:24 Pulse 112 H 02/14/17 05:26 Resp 20 02/14/17 03:32 BP 111/70 02/14/17 02:42 Pulse Ox 97 02/14/17 02:42 - Labs Result Diagrams: 02/13/17 18:31 02/13/17 18:31 Attending/Attestation - Attestation I have personally seen and examined this patient.: Yes I have fully participated in the care of the patient.: Yes I have reviewed all pertinent clinical information: Yes Notes (Text): -I agree with the above H&P completed by the resident physician.
[2017-02-14 07:36] LABS: HEMATOCRIT 31.4 % (42.0-52.0); MEAN CELL VOLUME 71.9 fl (80.0-105.0); MEAN CORPUSCULAR HEMOGLOBIN 22.2 pg (25.0-35.0); MEAN CORPUSCULAR HGB CONC 30.9 g/dl (31.0-37.0); MEAN PLATELET VOLUME 8.9 fl (7.0-11.0); RED CELL DISTRIBUTION WIDTH 17.8 % (11.5-14.5); WHITE BLOOD COUNT 8.6 10^3/ul (4.5-11.0)
[2017-02-14 07:46] LABS: ALB/GLOB RATIO 1.1 (1.1-1.8); ALKALINE PHOSPHATASE 90 U/L (38-126); ALT/SGPT 28 U/L (7-56); AST/SGOT 34 U/L (17-59); BILIRUBIN,TOTAL 0.9 mg/dL (0.2-1.3); BLOOD UREA NITROGEN 7 mg/dL (7-21); CALCIUM 8.8 mg/dL (8.4-10.5); CARBON DIOXIDE 31 mmol/L (21-33); CHLORIDE 99 mmol/L (98-107); GFR AFRICAN-AMERICAN > 60; GLUCOSE,RANDOM 117 mg/dL (70-110); SODIUM 138 mmol/L (132-148); TOTAL PROTEIN 7.4 g/dL (5.8-8.3)
[2017-02-14 07:48] LABS: INR 1.32 (0.93-1.08)
--- NOTE | 2017-02-14 09:00 | RAD ---
HISTORY: etoh withdrawal COMPARISON: 01/25/2017 FINDINGS: LUNGS: No active pulmonary disease. PLEURA: No significant pleural effusion identified, no pneumothorax apparent. CARDIOVASCULAR: Normal. OSSEOUS STRUCTURES: No significant abnormalities. VISUALIZED UPPER ABDOMEN: Normal. OTHER FINDINGS: None. IMPRESSION: No active disease.
[2017-02-14] MEDS ORDERED: MethylPREDNISolone 40 mg Vial IVP SCH (11:30)
[2017-02-14] MEDS: Albuterol-Ipratrop 3 mg / 0.5 (3 ml) UD IH SCH ×4 (14:06→23:18)
[2017-02-15] MEDS: Albuterol-Ipratrop 3 mg / 0.5 (3 ml) UD IH SCH ×5 (05:05→20:45)
[2017-02-15 08:14] LABS: HEMATOCRIT 30.6 % (42.0-52.0); MEAN CELL VOLUME 72.7 fl (80.0-105.0); MEAN CORPUSCULAR HEMOGLOBIN 21.9 pg (25.0-35.0); MEAN CORPUSCULAR HGB CONC 30.1 g/dl (31.0-37.0); MEAN PLATELET VOLUME 9.2 fl (7.0-11.0); WHITE BLOOD COUNT 6.9 10^3/ul (4.5-11.0)
[2017-02-15 08:33] LABS: ALKALINE PHOSPHATASE 85 U/L (38-126); ALT/SGPT 28 U/L (7-56); AST/SGOT 32 U/L (17-59); BLOOD UREA NITROGEN 11 mg/dL (7-21); CALCIUM 9.1 mg/dL (8.4-10.5); CARBON DIOXIDE 32 mmol/L (21-33); CHLORIDE 98 mmol/L (98-107); GFR AFRICAN-AMERICAN > 60; GLUCOSE,RANDOM 114 mg/dL (70-110); POTASSIUM 3.5 mmol/L (3.6-5.0); SODIUM 138 mmol/L (132-148); TOTAL PROTEIN 7.2 g/dL (5.8-8.3)
[2017-02-15 08:37] LABS: INR 1.32 (0.93-1.08)
--- NOTE | 2017-02-15 09:33 | CARD ---
APPROVED REPORT EKG Measurement Heart [id number] <Conclusion> Normal sinus rhythm PRWP V 1 - 4 LAD No change
--- NOTE | 2017-02-15 09:50 | CARD ---
APPROVED REPORT EKG Measurement Heart [id number] ID [id number] <Conclusion> Sinus tachycardia PRWP V 1 - 4 No change except the rate is faster
[2017-02-15] MEDS: Folic Acid 1 MG, Thiamine 100 MG, Multivitamin (MVI) 10 ML in Dextrose 5% In Water 1,00... IV SCH ×2 (10:23→21:52)
[2017-02-15] MEDS: MethylPREDNISolone 40 mg Vial IVP SCH (10:27)
--- NOTE | 2017-02-15 11:20 | CP.PCM.PN ---
<Joel Castro - Last Filed: 02/15/17 11:10> Subjective - Date & Time of Evaluation Date of Evaluation: 02/15/17 Time of Evaluation: 11:10 - Subjective Subjective: Pt seen and examined at bedside. No acute events overnight. Pt states he had trouble sleeping last night. No other complaints. Denies CP, SOB, N/V/D, fever, chills. Objective - Vital Signs/Intake and Output Vital Signs (last 24 hours): Temp Pulse Resp BP Pulse Ox 97.6 F 86 18 123/70 93 L 02/15/17 06:00 02/15/17 06:00 02/15/17 06:00 02/15/17 06:00 02/15/17 06:00 Intake and Output: 02/15/17 02/15/17 06:59 18:59 Intake Total 8920 Output Total 1000 Balance 7920 - Medications Medications: Current Medications Albuterol/Ipratropium (Duoneb 3 Mg/0.5 Mg (3 Ml) Ud) 3 ml IH [id number] [facility] Last Admin: 02/15/17 08:54 Dose: 3 ml Chlordiazepoxide (Librium) 25 mg PO Q8 SOPHIA PRN Reason: Protocol Last Admin: 02/15/17 05:29 Dose: 25 mg Doxycycline Hyclate (Doryx) 100 mg PO Q12 [facility]IA PRN Reason: Protocol Last Admin: 02/15/17 10:23 Dose: 100 mg Heparin Sodium (Porcine) (Heparin) 5,000 units SC Q12 [facility] PRN Reason: Protocol Last Admin: 02/15/17 10:26 Dose: 5,000 units Folic Acid 1 mg/ Thiamine HCl 100 mg/ Multivitamins/Vitamin C 10 ml/ Dextrose 1 ,011.2 mls @ 100 mls/hr IV .Q10H7M [facility] Last Admin: 02/15/17 10:23 Dose: 100 mls/hr Lorazepam (Ativan) 2 mg IVP Q2H PRN; Protocol PRN Reason: ALCOHOL WITHDRAWAL Last Admin: 02/14/17 23:34 Dose: 2 mg Methylprednisolone (Solu-Medrol) 30 mg IVP DAILY [facility] Last Admin: 02/15/17 10:27 Dose: 30 mg Ondansetron HCl (Zofran Inj) 4 mg IVP Q4H PRN PRN Reason: Nausea/Vomiting Last Admin: 02/15/17 03:21 Dose: 4 mg Pantoprazole Sodium (Protonix Inj) 40 mg IVP DAILY [facility] Last Admin: 02/15/17 10:27 Dose: 40 mg - Labs Labs: 02/15/17 07:50 02/15/17 07:50 PT 14.6 SECONDS (9.4-12.5) H 02/15/17 07:50 INR 1.32 (0.93-1.08) H 02/15/17 07:50 - Constitutional Appears: Non-toxic, No Acute Distress - Head Exam Head Exam: ATRAUMATIC, NORMAL INSPECTION, NORMOCEPHALIC - ENT Exam ENT Exam: Mucous Membranes Moist - Respiratory Exam Respiratory Exam: Decreased Breath Sounds, NORMAL BREATHING PATTERN. absent: Rhonchi, Wheezes - Cardiovascular Exam Cardiovascular Exam: RRR, +S1, +S2 - GI/Abdominal Exam GI & Abdominal Exam: Soft, Normal Bowel Sounds. absent: Tenderness - Extremities Exam Extremities Exam: absent: Calf Tenderness, Pedal Edema - Neurological Exam Neurological Exam: Alert, Awake, Oriented x3 Additional comments: Tremulous - Psychiatric Exam Psychiatric exam: Normal Affect, Normal Mood - Skin Skin Exam: Intact, Normal Color, Warm Assessment and Plan - Assessment and Plan (Free Text) Plan: 56 y/o M with PMH chronic ETOH abuse, HTN, GERD, asthma, and anemia who presents with abdominal pain and alcohol withdrawal. Pt is currently in withdrawal and we will continue withdrawal medications and CIWA protocol at this time. Will continue to monitor closely. Pt is tolerating diet. 1. Alcohol withdrawal - banana bag - Librium 25 mg q8h - Ativan 2 mg q2h prn - Continue seizure, fall, and aspiration precautions - CIWA protocol - zofran prn 2. SOB - Solumedrol tapered to 30 mg daily - Continue Doxycyline 3. Hx HTN - BP stable 4. Microcytic anemia - Hg stable - Continue to monitor H and H 6. Hx GERD - Continue Protonix 7. PPX - Protonix - Heparin Bhagwandin, PGY-2 <Jessica Chung - Last Filed: 02/15/17 18:39> Objective - Vital Signs/Intake and Output Vital Signs (last 24 hours): Temp Pulse Resp BP Pulse Ox 98.2 F 96 H 20 133/87 93 L 02/15/17 12:00 02/15/17 12:00 02/15/17 12:00 02/15/17 12:00 02/15/17 06:00 - Medications Medications: Current Medications Albuterol/Ipratropium (Duoneb 3 Mg/0.5 Mg (3 Ml) Ud) 3 ml IH [id number] [facility] Last Admin: 02/15/17 15:45 Dose: Not Given Chlordiazepoxide (Librium) 25 mg PO Q8 SOPHIA PRN Reason: Protocol Last Admin: 02/15/17 14:14 Dose: 25 mg Doxycycline Hyclate (Doryx) 100 mg PO Q12 SOPHIA PRN Reason: Protocol Last Admin: 02/15/17 10:23 Dose: 100 mg Heparin Sodium (Porcine) (Heparin) 5,000 units SC Q12 SOPHIA PRN Reason: Protocol Last Admin: 02/15/17 10:26 Dose: 5,000 units Folic Acid 1 mg/ Thiamine HCl 100 mg/ Multivitamins/Vitamin C 10 ml/ Dextrose 1 ,011.2 mls @ 100 mls/hr IV .Q10H7M [facility] Last Admin: 02/15/17 10:23 Dose: 100 mls/hr Lorazepam (Ativan) 2 mg IVP Q2H PRN; Protocol PRN Reason: ALCOHOL WITHDRAWAL Last Admin: 02/15/17 14:21 Dose: 2 mg Methylprednisolone (Solu-Medrol) 30 mg IVP DAILY [facility] Last Admin: 02/15/17 10:27 Dose: 30 mg Ondansetron HCl (Zofran Inj) 4 mg IVP Q4H PRN PRN Reason: Nausea/Vomiting Last Admin: 02/15/17 14:17 Dose: 4 mg Pantoprazole Sodium (Protonix Inj) 40 mg IVP DAILY [facility] Last Admin: 02/15/17 10:27 Dose: 40 mg - Labs Labs: PT 14.6 SECONDS (9.4-12.5) H 02/15/17 07:50 INR 1.32 (0.93-1.08) H 02/15/17 07:50 Attending/Attestation - Attestation I have personally seen and examined this patient.: Yes I have fully participated in the care of the patient.: Yes I have reviewed all pertinent clinical information, including history, physical exam and plan: Yes Notes (Text): I have seen and examined the patient at bedside. Agree with the above note with the following additions/ exceptions: Briefly this is 56 year old male with history of COPD, alcohol abuse, gastritis, anemia who was admitted for alcohol intoxication. He still feels nauseous and admits to headache, tremors and has auditory hallucinations. Continue librium and ativan prn. Fall precautions. Continue protonix. He needs repeat endoscopy in 1 month. Alcohol cessation counselling provided. Upon discharge patient will follow up with Dr Alexander. Dr Jessica Chung
[2017-02-16] MEDS: Albuterol-Ipratrop 3 mg / 0.5 (3 ml) UD IH SCH ×7 (00:10→23:30)
[2017-02-16 07:08] LABS: HEMATOCRIT 30.3 % (42.0-52.0); MEAN CELL VOLUME 72.8 fl (80.0-105.0); MEAN CORPUSCULAR HEMOGLOBIN 21.9 pg (25.0-35.0); RED CELL DISTRIBUTION WIDTH 18.1 % (11.5-14.5); WHITE BLOOD COUNT 11.2 10^3/ul (4.5-11.0)
[2017-02-16 07:28] LABS: BLOOD UREA NITROGEN 15 mg/dL (7-21); CALCIUM 9.1 mg/dL (8.4-10.5); CARBON DIOXIDE 30 mmol/L (21-33); CHLORIDE 97 mmol/L (98-107); GFR AFRICAN-AMERICAN > 60; GLUCOSE,RANDOM 111 mg/dL (70-110); MAGNESIUM 1.5 mg/dL (1.7-2.2); PHOSPHOROUS 4.1 mg/dL (2.5-4.5); POTASSIUM 3.5 mmol/L (3.6-5.0); SODIUM 135 mmol/L (132-148)
[2017-02-16 07:46] LABS: INR 1.27 (0.93-1.08)
[2017-02-16] MEDS ORDERED: Magnesium Sulfate 2 GM in Sodium Chloride 0.9% 100 ML IVPB ONE (07:55)
[2017-02-16] MEDS ORDERED: Potassium Chloride 20 mEq ER Tab PO ONE (07:55)
[2017-02-16] MEDS: MethylPREDNISolone 40 mg Vial IVP SCH (10:14)
[2017-02-16] MEDS ORDERED: MethylPREDNISolone 40 mg Vial IVP SCH (10:24)
--- NOTE | 2017-02-16 10:53 | CP.PCM.PN ---
<Joel Castro - Last Filed: 02/16/17 10:49> Subjective - Date & Time of Evaluation Date of Evaluation: 02/16/17 Time of Evaluation: 10:49 - Subjective Subjective: Pt seen and examined at bedside. Pt with no acute events overnight as per nursing. Pt with no complaints this morning. Pt is tolerating diet. Denies CP, SOB, N/V/D, fever, chills. Objective - Vital Signs/Intake and Output Vital Signs (last 24 hours): Temp Pulse Resp BP Pulse Ox 98.5 F 72 19 140/85 92 L 02/16/17 06:00 02/16/17 06:00 02/16/17 06:00 02/16/17 06:00 02/16/17 06:00 Intake and Output: 02/16/17 02/16/17 06:59 18:59 Intake Total 1200 900 Output Total 2 Balance 1200 898 - Medications Medications: Current Medications Albuterol/Ipratropium (Duoneb 3 Mg/0.5 Mg (3 Ml) Ud) 3 ml IH [id number] [facility] Last Admin: 02/16/17 07:55 Dose: Not Given Chlordiazepoxide (Librium) 10 mg PO Q8 SOPHIA PRN Reason: Protocol Cyanocobalamin (Vitamin B12 1000 Mcg Tab) 1,000 mcg PO DAILY [facility] Last Admin: 02/16/17 10:46 Dose: 1,000 mcg Folic Acid (Folic Acid) 1 mg PO DAILY [facility] Last Admin: 02/16/17 10:46 Dose: 1 mg Heparin Sodium (Porcine) (Heparin) 5,000 units SC Q12 SOPHIA PRN Reason: Protocol Last Admin: 02/16/17 10:14 Dose: 5,000 units Lorazepam (Ativan) 2 mg IVP Q2H PRN; Protocol PRN Reason: ALCOHOL WITHDRAWAL Last Admin: 02/16/17 09:02 Dose: 2 mg Methylprednisolone (Solu-Medrol) 20 mg IVP DAILY [facility] Multivitamins/Minerals (Therapeutic-M Tab) 1 tab PO 0800 [facility] Ondansetron HCl (Zofran Inj) 4 mg IVP Q4H PRN PRN Reason: Nausea/Vomiting Last Admin: 02/16/17 10:16 Dose: 4 mg Pantoprazole Sodium (Protonix Inj) 40 mg IVP DAILY [facility] Last Admin: 02/16/17 10:14 Dose: 40 mg Thiamine HCl (Vitamin B1 Tab) 100 mg PO DAILY [facility] Last Admin: 02/16/17 10:47 Dose: 100 mg - Labs Labs: 02/16/17 06:30 02/16/17 06:30 PT 14.0 SECONDS (9.4-12.5) H 02/16/17 06:30 INR 1.27 (0.93-1.08) H 02/16/17 06:30 - Constitutional Appears: Non-toxic, No Acute Distress - Head Exam Head Exam: ATRAUMATIC, NORMAL INSPECTION, NORMOCEPHALIC - ENT Exam ENT Exam: Mucous Membranes Moist - Respiratory Exam Respiratory Exam: Clear to Ausculation Bilateral, NORMAL BREATHING PATTERN - Cardiovascular Exam Cardiovascular Exam: RRR, +S1, +S2 - GI/Abdominal Exam GI & Abdominal Exam: Soft, Normal Bowel Sounds. absent: Tenderness - Extremities Exam Extremities Exam: Normal Inspection. absent: Calf Tenderness, Pedal Edema - Neurological Exam Neurological Exam: Alert, Awake, Oriented x3 Additional comments: Tremors improving, almost at baseline - Psychiatric Exam Psychiatric exam: Normal Affect, Normal Mood - Skin Skin Exam: Intact, Normal Color, Warm Assessment and Plan - Assessment and Plan (Free Text) Plan: 56 y/o M with PMH chronic ETOH abuse, HTN, GERD, asthma, and anemia who presents with abdominal pain and alcohol withdrawal. Pt is currently in withdrawal and improving. Pt tolerating diet, will switch patient from banana bag to PO vitamins. Pt will also have abx stopped at this time and solumedrol tapered. Will continue to monitor closely. 1. Alcohol withdrawal - Stop banana bag - Multivitamin, folic acid, B12, and Thiamine PO given - Taper Librium to 10 mg q8h - Ativan 2 mg q2h prn - Continue seizure, fall, and aspiration precautions - CIWA protocol - zofran prn 2. SOB - Solumedrol tapered to 20 mg daily -Abx stopped 3. Hx HTN - BP stable 4. Microcytic anemia - Hg stable - Continue to monitor H and H 6. Hx GERD - Continue Protonix 7. PPX - Protonix - Heparin Matthew, PGY-2 <Jessica Chung - Last Filed: 02/16/17 15:11> Objective - Vital Signs/Intake and Output Vital Signs (last 24 hours): Temp Pulse Resp BP Pulse Ox 98.2 F 88 16 142/77 92 L 02/16/17 12:00 02/16/17 12:00 02/16/17 12:00 02/16/17 12:00 02/16/17 06:00 Intake and Output: 02/16/17 02/16/17 06:59 18:59 Intake Total 1200 1200 Output Total 602 Balance 1200 598 - Medications Medications: Current Medications Albuterol/Ipratropium (Duoneb 3 Mg/0.5 Mg (3 Ml) Ud) 3 ml IH [id number] [facility] Last Admin: 02/16/17 11:38 Dose: Not Given Chlordiazepoxide (Librium) 10 mg PO Q8 [facility] PRN Reason: Protocol Last Admin: 02/16/17 14:46 Dose: 10 mg Cyanocobalamin (Vitamin B12 1000 Mcg Tab) 1,000 mcg PO DAILY [facility] Last Admin: 02/16/17 10:46 Dose: 1,000 mcg Folic Acid (Folic Acid) 1 mg PO DAILY [facility] Last Admin: 02/16/17 10:46 Dose: 1 mg Heparin Sodium (Porcine) (Heparin) 5,000 units SC Q12 SOPHIA PRN Reason: Protocol Last Admin: 02/16/17 10:14 Dose: 5,000 units Lorazepam (Ativan) 2 mg IVP Q2H PRN; Protocol PRN Reason: ALCOHOL WITHDRAWAL Last Admin: 02/16/17 09:02 Dose: 2 mg Methylprednisolone (Solu-Medrol) 20 mg IVP DAILY [facility] Multivitamins/Minerals (Therapeutic-M Tab) 1 tab PO 0800 [facility] Ondansetron HCl (Zofran Inj) 4 mg IVP Q4H PRN PRN Reason: Nausea/Vomiting Last Admin: 02/16/17 10:16 Dose: 4 mg Pantoprazole Sodium (Protonix Inj) 40 mg IVP DAILY [facility] Last Admin: 02/16/17 10:14 Dose: 40 mg Thiamine HCl (Vitamin B1 Tab) 100 mg PO DAILY [facility] Last Admin: 02/16/17 10:47 Dose: 100 mg - Labs Labs: 02/16/17 06:30 02/16/17 06:30 PT 14.0 SECONDS (9.4-12.5) H 02/16/17 06:30 INR 1.27 (0.93-1.08) H 02/16/17 06:30 Attending/Attestation - Attestation I have personally seen and examined this patient.: Yes I have fully participated in the care of the patient.: Yes I have reviewed all pertinent clinical information, including history, physical exam and plan: Yes Notes (Text): I have seen and examined the patient at bedside. Agree with the above note with the following additions/ exceptions: Briefly this is 56 year old male with history of COPD, alcohol abuse, gastritis, anemia who was admitted for alcohol intoxication. Patient is less tremulous however reports some headache and auditory hallucinations. Continue tapering doses of librium and ativan prn. Fall precautions. Continue protonix. He needs repeat endoscopy in 1 month. Alcohol cessation counselling provided. Upon discharge patient will follow up with Dr Alexander. Dr Jessica Chung
[2017-02-17] MEDS: Albuterol-Ipratrop 3 mg / 0.5 (3 ml) UD IH SCH ×4 (03:27→16:27)
[2017-02-17] MEDS ORDERED: Pantoprazole 40 mg EC Tab PO SCH (06:00)
[2017-02-17 06:49] VITALS: TEMP 97.5; O2SAT 98
[2017-02-17 06:51] LABS: HEMATOCRIT 30.3 % (42.0-52.0); MEAN CELL VOLUME 73.4 fl (80.0-105.0); MEAN CORPUSCULAR HEMOGLOBIN 21.8 pg (25.0-35.0); MEAN CORPUSCULAR HGB CONC 29.7 g/dl (31.0-37.0); MEAN PLATELET VOLUME 9.4 fl (7.0-11.0); RED CELL DISTRIBUTION WIDTH 18.1 % (11.5-14.5); WHITE BLOOD COUNT 8.4 10^3/ul (4.5-11.0)
[2017-02-17 07:04] LABS: BLOOD UREA NITROGEN 16 mg/dL (7-21); CALCIUM 8.9 mg/dL (8.4-10.5); CARBON DIOXIDE 30 mmol/L (21-33); CHLORIDE 100 mmol/L (98-107); GFR AFRICAN-AMERICAN > 60; GLUCOSE,RANDOM 99 mg/dL (70-110); POTASSIUM 3.6 mmol/L (3.6-5.0); SODIUM 138 mmol/L (132-148)
[2017-02-17 07:07] LABS: INR 1.28 (0.93-1.08)
[2017-02-17] MEDS ORDERED: Multivitamin With Minerals Tab PO SCH (08:00)
[2017-02-17 13:41] VITALS: BP 138/77; RESP 22
--- NOTE | 2017-02-17 15:10 | CP.PCM.DIS ---
<EllynLinan - Last Filed: 02/17/17 18:39> Provider - Provider Date of Admission: 02/15/17 18:00 Attending physician: Jessica Chung MD Primary care physician: Chuy Desir MD Time Spent in preparation of Discharge (in minutes): 45 Hospital Course - Lab Results Lab Results: Most Recent Lab Values WBC 8.4 10^3/ul (4.5-11.0) D 02/17/17 05:00 RBC 4.13 10^6/uL (3.5-6.1) 02/17/17 05:00 Hgb 9.0 g/dL (14.0-18.0) L 02/17/17 05:00 Hct 30.3 % (42.0-52.0) L 02/17/17 05:00 MCV 73.4 fl (80.0-105.0) L 02/17/17 05:00 MCH 21.8 pg (25.0-35.0) L 02/17/17 05:00 MCHC 29.7 g/dl (31.0-37.0) L 02/17/17 05:00 RDW 18.1 % (11.5-14.5) H 02/17/17 05:00 Plt Count 151 10^3/uL (120.0-450.0) 02/17/17 05:00 MPV 9.4 fl (7.0-11.0) 02/17/17 05:00 Gran % 85.0 % (50.0-68.0) H 02/13/17 18:31 Lymph % (Auto) 7.7 % (22.0-35.0) L 02/13/17 18:31 [place] % (Auto) 7.1 % (1.0-6.0) H 02/13/17 18:31 Eos % (Auto) 0.0 % (1.5-5.0) L 02/13/17 18:31 Baso % (Auto) 0.2 % (0.0-3.0) 02/13/17 18:31 Gran # 9.75 (1.4-6.5) H 02/13/17 18:31 Lymph # 0.9 (1.2-3.4) L 02/13/17 18:31 [place] # 0.8 (0.1-0.6) H 02/13/17 18:31 Eos # 0.0 (0.0-0.7) 02/13/17 18:31 Baso # 0.02 K/mm3 (0.0-2.0) 02/13/17 18:31 PT 14.2 SECONDS (9.4-12.5) H 02/17/17 06:30 INR 1.28 (0.93-1.08) H 02/17/17 06:30 Sodium 138 mmol/L (132-148) 02/17/17 06:30 Potassium 3.6 mmol/L (3.6-5.0) 02/17/17 06:30 Chloride 100 mmol/L (98-107) 02/17/17 06:30 Carbon Dioxide 30 mmol/L (21-33) 02/17/17 06:30 Anion Gap 12 (10-20) 02/17/17 06:30 BUN 16 mg/dL (7-21) 02/17/17 06:30 Creatinine 0.9 mg/dl (0.8-1.5) 02/17/17 06:30 Est GFR ( Amer) > 60 02/17/17 06:30 Est GFR (Non-Af Amer) > 60 02/17/17 06:30 Random Glucose 99 mg/dL (70-110) 02/17/17 06:30 Calcium 8.9 mg/dL (8.4-10.5) 02/17/17 06:30 Phosphorus 4.1 mg/dL (2.5-4.5) 02/16/17 06:30 Magnesium 1.5 mg/dL (1.7-2.2) L 02/16/17 06:30 Total Bilirubin 1.0 mg/dL (0.2-1.3) 02/15/17 07:50 AST 32 U/L (17-59) 02/15/17 07:50 ALT 28 U/L (7-56) 02/15/17 07:50 Alkaline Phosphatase 85 U/L (38-126) 02/15/17 07:50 Troponin I 0.02 ng/mL D 02/15/17 00:15 Total Protein 7.2 g/dL (5.8-8.3) 02/15/17 07:50 Albumin 3.7 g/dL (3.0-4.8) 02/15/17 07:50 Globulin 3.5 gm/dL 02/15/17 07:50 Albumin/Globulin Ratio 1.0 (1.1-1.8) L 02/15/17 07:50 Amylase 106 U/L (35-125) 02/13/17 18:31 Lipase 284 U/L (23-300) 02/13/17 18:31 Alcohol, Quantitative 320 mg/dL (0-10) H* 02/13/17 18:31 - Hospital Course Hospital Course: 56 year od male with a past medical history of chronic etoh abuse, hypertension , gerd, asthma and anemia who comes into the emergency department with diffuse abdominal pain and alcohol withdrawal. While in the emergency department an alcohol level was drawn and the level was 320. The patient was also found to be hypokalemia without ekg changes. The patient was repleted as a result. The patient was admitted for etoh withdrawal. Patient was started on Librium, ativan, banana bag, seizure precautions and fall precautions. The patient also developed some shortness of breath and was subsequently started on steroids and duoneb treatments. We began to taper the solu-medrol. The patient was seen and examined today. The patient was afebrile, no white count, and negative c. diff. The patient was discharged on oral thiamine, multivitamin, folic acid, and medrol dose pack. The patient was advised to follow up with PMD within on week of discharge and to return to the hospital for any new or worsening symptoms. Discharge Exam - Head Exam Head Exam: ATRAUMATIC, NORMAL INSPECTION, NORMOCEPHALIC - Eye Exam Eye Exam: EOMI, Normal appearance, PERRL Pupil Exam: NORMAL ACCOMODATION, PERRL. absent: Irregular, Unequal - ENT Exam ENT Exam: Mucous Membranes Moist, Normal Oropharynx - Respiratory Exam Respiratory Exam: Clear to PA & Lateral, NORMAL BREATHING PATTERN, UNREMARKABLE. absent: Decreased Breath Sounds, Rales, Rhonchi, Stridor - Cardiovascular Exam Cardiovascular Exam: REGULAR RHYTHM, +S1, +S2. absent: Gallop, Rubs - GI/Abdominal Exam GI & Abdominal Exam: Normal Bowel Sounds, Unremarkable - Extremities Exam Extremities exam: full ROM - Back Exam Back exam: NORMAL INSPECTION. absent: CVA tenderness (L), CVA tenderness (R), paraspinal tenderness - Neurological Exam Neurological exam: Alert, CN II-XII Intact, Oriented x3 - Psychiatric Exam Psychiatric exam: Normal Affect, Normal Mood - Skin Skin Exam: Dry, Intact Discharge Plan - Discharge Medications Prescriptions: Folic Acid 0.4 mg PO DAILY #30 tablet Methylprednisolone [Medrol Dose Pack (21 tabs)] See Taper PO ONCE #21 mg Multivitamin [Men's Multi-Vitamin] 1 each PO DAILY #30 tablet Thiamine [Vitamin B1 Tab] 100 mg PO DAILY #30 tab - Follow Up Plan Condition: FAIR Disposition: HOME/ ROUTINE Instructions: Heart Healthy Diet (DC), Alcohol Intoxication (DC), Abuse of Alcohol (DC), Alcohol Withdrawal (DC) Additional Instructions: Patient advised to follow up with PMD within one week of discharge. Patient strongly advised to return to emergency department for any new or worsening symptoms. Referrals: Chuy Desir MD [Primary Care Provider] - <Jessica Chung - Last Filed: 02/18/17 15:12> Provider - Provider Date of Admission: 02/15/17 18:00 Attending physician: Jessica Chung MD Primary care physician: Chuy Desir MD Hospital Course - Lab Results Lab Results: Most Recent Lab Values WBC 8.4 10^3/ul (4.5-11.0) D 02/17/17 05:00 RBC 4.13 10^6/uL (3.5-6.1) 02/17/17 05:00 Hgb 9.0 g/dL (14.0-18.0) L 02/17/17 05:00 Hct 30.3 % (42.0-52.0) L 02/17/17 05:00 MCV 73.4 fl (80.0-105.0) L 02/17/17 05:00 MCH 21.8 pg (25.0-35.0) L 02/17/17 05:00 MCHC 29.7 g/dl (31.0-37.0) L 02/17/17 05:00 RDW 18.1 % (11.5-14.5) H 02/17/17 05:00 Plt Count 151 10^3/uL (120.0-450.0) 02/17/17 05:00 MPV 9.4 fl (7.0-11.0) 02/17/17 05:00 Gran % 85.0 % (50.0-68.0) H 02/13/17 18:31 Lymph % (Auto) 7.7 % (22.0-35.0) L 02/13/17 18:31 [place] % (Auto) 7.1 % (1.0-6.0) H 02/13/17 18:31 Eos % (Auto) 0.0 % (1.5-5.0) L 02/13/17 18:31 Baso % (Auto) 0.2 % (0.0-3.0) 02/13/17 18:31 Gran # 9.75 (1.4-6.5) H 02/13/17 18:31 Lymph # 0.9 (1.2-3.4) L 02/13/17 18:31 [place] # 0.8 (0.1-0.6) H 02/13/17 18:31 Eos # 0.0 (0.0-0.7) 02/13/17 18:31 Baso # 0.02 K/mm3 (0.0-2.0) 02/13/17 18:31 PT 14.2 SECONDS (9.4-12.5) H 02/17/17 06:30 INR 1.28 (0.93-1.08) H 02/17/17 06:30 Sodium 138 mmol/L (132-148) 02/17/17 06:30 Potassium 3.6 mmol/L (3.6-5.0) 02/17/17 06:30 Chloride 100 mmol/L (98-107) 02/17/17 06:30 Carbon Dioxide 30 mmol/L (21-33) 02/17/17 06:30 Anion Gap 12 (10-20) 02/17/17 06:30 BUN 16 mg/dL (7-21) 02/17/17 06:30 Creatinine 0.9 mg/dl (0.8-1.5) 02/17/17 06:30 Est GFR ( Amer) > 60 02/17/17 06:30 Est GFR (Non-Af Amer) > 60 02/17/17 06:30 Random Glucose 99 mg/dL (70-110) 02/17/17 06:30 Calcium 8.9 mg/dL (8.4-10.5) 02/17/17 06:30 Phosphorus 4.1 mg/dL (2.5-4.5) 02/16/17 06:30 Magnesium 1.5 mg/dL (1.7-2.2) L 02/16/17 06:30 Total Bilirubin 1.0 mg/dL (0.2-1.3) 02/15/17 07:50 AST 32 U/L (17-59) 02/15/17 07:50 ALT 28 U/L (7-56) 02/15/17 07:50 Alkaline Phosphatase 85 U/L (38-126) 02/15/17 07:50 Troponin I 0.02 ng/mL D 02/15/17 00:15 Total Protein 7.2 g/dL (5.8-8.3) 02/15/17 07:50 Albumin 3.7 g/dL (3.0-4.8) 02/15/17 07:50 Globulin 3.5 gm/dL 02/15/17 07:50 Albumin/Globulin Ratio 1.0 (1.1-1.8) L 02/15/17 07:50 Amylase 106 U/L (35-125) 02/13/17 18:31 Lipase 284 U/L (23-300) 02/13/17 18:31 Alcohol, Quantitative 320 mg/dL (0-10) H* 02/13/17 18:31 Attending/Attestation - Attestation I have personally seen and examined this patient.: Yes I have fully participated in the care of the patient.: Yes I have reviewed all pertinent clinical information, including history, physical exam and plan: Yes Notes (Text): I have seen and examined the patient at bedside. Agree with the above note with the following additions/ exceptions: Briefly this is 56 year old male with history of COPD, alcohol abuse, gastritis, anemia who was admitted for alcohol intoxication. Patient is less tremulous and denies nausea, vomiting, abdominal pain, headache and auditory hallucinations. Patient was given tapering doses of librium and ativan prn. He is able to walk in a steady state. Continue protonix. He needs repeat endoscopy in 1 month. Alcohol cessation counselling provided. Upon discharge patient will follow up with Dr Alexander. Dr Jessica Chung
[2017-02-17 17:24] VITALS: PULSE 89
== END 2017-02-17 19:12 | disposition home or self-care (01) | DRG 750 ==
LOC: ED 17:14 → INTOOBSV 02-14 02:17 → ERH 02-14 02:17 → 3RSO 02-14 03:28 → OBSVTOIN 02-15 18:00
PROVIDERS: ADMIT Hospitalist; ATTEND Hospitalist
PROC: 3E0F7GC Introduction of Other Therapeutic Substance into Respiratory Tract, Via Natural or Artificial Opening (ICD-10-PCS; principal; 2017-02-14)
DX: F10.239 Alcohol dependence with withdrawal, unspecified (principal); J44.9 Chronic obstructive pulmonary disease, unspecified; I10 Essential (primary) hypertension; E11.9 Type 2 diabetes mellitus without complications; D64.9 Anemia, unspecified; E87.6 Hypokalemia; K29.20 Alcoholic gastritis without bleeding; K21.9 Gastro-esophageal reflux disease without esophagitis; R10.84 Generalized abdominal pain; Y90.8 Blood alcohol level of 240 mg/100 ml or more; Z59.0 Homelessness; Z80.0 Family history of malignant neoplasm of digestive organs

== ENCOUNTER 2017-02-27 08:56 | Emergency (ER) | payer MEDICAID ==
--- NOTE | 2017-02-27 09:05 | ED PDOC ---
Arrival/HPI - General Time Seen by Provider: 02/27/17 09:03 Historian: Patient - History of Present Illness Narrative History of Present Illness (Text): 02/27/17 09:04 56 y/o male, pmh including thoracic compression fracture/copd/copd/htn/ hyponatremia/gastritis/esophogitis, psychiatric history including suicidal ideation and alcohol abuse, penicillin allergy, biba c/o coughing and shortness of breath started yesterday afternoon. Pt. stated that he has been coughing for the past 2 days, out of the albuterol nebulizer solution at home, been coughing to a point which he vomited several times and developed epigastric pain , chronic COPD but not been following up with the pmd, no night sweat, no weight loss, no fever or chills, no palpitation, no rash, no other medical or psychological complaints. PT. stated that he HAS NO CHEST PAIN. Past Medical History - Provider Review Nursing Documentation Reviewed: Yes - Past History Past History: No Previous - Infectious Disease Hx of Infectious Diseases: None - Tetanus Immunization Tetanus Immunization: Unknown - Reproductive Currently : No - Cardiac Hx Cardiac Disorders: Yes Hx Hypertension: Yes - Pulmonary Hx Respiratory Disorders: Yes Hx Chronic Obstructive Pulmonary Disease (COPD): Yes - Neurological Hx Neurological Disorder: No - HEENT Hx HEENT Disorder: No - Renal Hx Renal Disorder: No - Endocrine/Metabolic Hx Endocrine Disorders: No - Hematological/Oncological Hx Blood Disorders: Yes Hx Anemia: Yes Hx Hepatitis C: No - Integumentary Hx Dermatological Disorder: No - Musculoskeletal/Rheumatological Hx Musculoskeletal Disorders: Yes Hx Back Pain: Yes Hx Falls: No - Gastrointestinal Hx Gastrointestinal Disorders: Yes Hx Gastroesophageal Reflux: Yes Hx Pancreatitis: Yes - Genitourinary/Gynecological Hx Genitourinary Disorders: No - Psychiatric Hx Psychophysiologic Disorder: Yes Hx Anxiety: Yes Hx Substance Use: Yes - Surgical History Hx Inguinal Hernia Repair: Yes - Anesthesia Hx Anesthesia: Yes - Suicidal Assessment Feels Threatened In Home Enviroment: No Family/Social History - Physician Review Nursing Documentation Reviewed: Yes Family/Social History: Unknown Family HX Smoking Status: Former Smoker Hx Alcohol Use: Yes Amount per day: 10 Hx Substance Use: Yes Hx Substance Use Treatment: No Allergies/Home Meds Allergies/Adverse Reactions: Allergies Penicillins Allergy (Verified 02/13/17 17:31) RASH Review of Systems - Review of Systems Constitutional: absent: Fatigue, Fevers Eyes: absent: Vision Changes ENT: absent: Hearing Changes Respiratory: SOB, Cough, Sputum Cardiovascular: absent: Chest Pain Gastrointestinal: Abdominal Pain, Nausea, Vomiting. absent: Diarrhea Musculoskeletal: absent: Arthralgias Skin: absent: Rash, Pruritis, Skin Lesions Neurological: absent: Headache, Dizziness Physical Exam Vital Signs Reviewed: Yes Vital Signs Temp Pulse Pulse Resp BP Pulse Ox 02/27/17 15:34 90 96 02/27/17 13:06 83 18 134/80 92 L 02/27/17 11:25 102 H 18 132/87 99 02/27/17 09:12 99.3 F 104 H 18 143/87 98 02/27/17 09:10 104 H Temperature: Afebrile Blood Pressure: Normal Pulse: Tachycardic Respiratory Rate: Normal Appearance: Positive for: Well-Appearing, Non-Toxic Pain Distress: Mild Mental Status: Positive for: Alert and Oriented X 3 - Systems Exam Head: Present: Atraumatic, Normocephalic Pupils: Present: PERRL Extroacular Muscles: Present: EOMI Conjunctiva: Present: Normal Mouth: Present: Moist Mucous Membranes Neck: Present: Normal Range of Motion Respiratory/Chest: Present: Wheezes, Decreased Breath Sounds, Rhonchi. No: Respiratory Distress, Accessory Muscle Use, Rales, Retracting, Tachypneic, Tender to Palpation Cardiovascular: Present: Regular Rate and Rhythm, Normal S1, S2, Other (no pedal edema). No: Murmurs Abdomen: Present: Tenderness (epigastric), Normal Bowel Sounds, Other (negative carter sign, negative mcburney point tenderness). No: Distention, Peritoneal Signs, Rebound, Guarding Back: Present: Normal Inspection Upper Extremity: Present: Normal Inspection. No: Cyanosis, Edema Lower Extremity: Present: Normal Inspection. No: Edema Neurological: Present: GCS=15, Speech Normal, Motor Func Grossly Intact, Gait Normal, Memory Normal Skin: Present: Warm, Dry, Normal Color. No: Rashes Psychiatric: Present: Alert, Oriented x 3, Normal Insight, Normal Concentration Medical Decision Making ED Course and Treatment: 02/27/17 09:22 -labs -ekg -cxr -IV solumedrol/duoneb x prn -observe and reassess 02/27/17 10:59 -EKG: Sinus Tachycardia @ 104 BPM, no ST elevation or depression, chronic T wave inversion on lead III. -Chest xray: no active disease -Labs are non-significant except wbc 12.6 (afebrile) and Magnesium 1.6 (IV magnesium 1gm ordered), alcohol 26, negative troponin, negative BNP. -IVF ordered as he is tachycardic, will reassess 02/27/17 12:10 -Pt. remains borderline tachycardia, d-dimer ordered. 02/27/17 12:46 -Ddimer elevated to 600s, CTA ordered. 02/27/17 15:36 -CTA: No evidence of pulmonary embolus. No pulmonary infiltrates. Small hiatal hernia with mural thickening throughout the esophagus, possible esophagitis -Pt. feels better, no chest pain or shortness of breath, no abdominal pain, feels better, vitally stable, no active complaints now, will discharge home. -Discharge home with pepcid, prednisone, albuterol MDI, albuterol, zithromax, stay hydrated, bed rest, follow up with your own pmd and armed guard within 2 days, return to the ER for any new or worsening signs or symptoms. - Lab Interpretations Lab Results: 02/27/17 09:40 02/27/17 09:40 Lab Results 02/27/17 10:40: Alcohol, Quantitative 26 H 02/27/17 09:40: D-Dimer, Quantitative 656 H 02/27/17 09:40: Sodium 135, Potassium 3.9, Chloride 97 L, Carbon Dioxide 25, Anion Gap 18, BUN 9, Creatinine 0.9, Est GFR ( Amer) > 60, Est GFR (Non- Af Amer) > 60, Random Glucose 123 H, Calcium 9.3, Magnesium 1.6 L, Total Bilirubin 0.8, AST 33, ALT 19, Alkaline Phosphatase 118, Lactate Dehydrogenase 475, Total Creatine Kinase 64, Troponin I < 0.01 D, NT-Pro-B Natriuret Pep 61.5 , Total Protein 8.3, Albumin 4.4, Globulin 3.9, Albumin/Globulin Ratio 1.1 02/27/17 09:40: WBC 12.7 H D, RBC 4.71, Hgb 10.5 L, Hct 34.0 L, MCV 72.2 L, MCH 22.3 L, MCHC 30.9 L, RDW 18.0 H, Plt Count 264, MPV 8.7, Gran % 84.3 H, Lymph % (Auto) 7.4 L, [place] % (Auto) 8.1 H, Eos % (Auto) 0.0 L, Baso % (Auto) 0.2, Gran # 10.67 H, Lymph # 0.9 L, [place] # 1.0 H, Eos # 0.0, Baso # 0.03 I have reviewed the lab results: Yes Interpretation: Abnormal lab values (Magnesium 1.6) - RAD Interpretation Radiology Orders: 02/27/17 09:21 CHEST PORTABLE [RAD] Stat 02/27/17 12:31 ANGIO CHEST PE PROTOCOL [CT] Stat Chest xray: no active disease -- CTA: PROCEDURE: CT Chest with contrast (Pulmonary Angiogram) HISTORY: tachycardic/cough, elevated d-dimer COMPARISON: 01/15/2017 TECHNIQUE: Axial computed tomography images were obtained of the chest in the pulmonary arterial phase of enhancement. Coronal and sagittal reformatted images were created and reviewed. Intravenous contrast dose: 100 cc of Omni 350 Radiation dose: Total exam DLP = 568 mGy-cm. This CT exam was performed using one or more of the following dose reduction techniques: Automated exposure control, adjustment of the mA and/or kV according to patient size, and/or use of iterative reconstruction technique. FINDINGS: PULMONARY ARTERIES: Unremarkable. No pulmonary embolism. AORTA: No acute findings. No thoracic aortic aneurysm. LUNGS: Unremarkable. No nodule, mass or pulmonary consolidation. PLEURAL SPACES: Unremarkable. No effusion or pneuomothorax. HEART: Unremarkable. No cardiomegaly. No significant pericardial effusion. LYMPH NODES: No lymphadenopathy. BONES, CHEST WALL: Unremarkable. No fracture or destructive lesion OTHER FINDINGS: There is mild to moderate mural thickening throughout the esophagus. Clinical correlation is suggested. Findings could be related to reflux. There is a small hiatal hernia IMPRESSION: No evidence of pulmonary embolus. No pulmonary infiltrates. Small hiatal hernia with mural thickening throughout the esophagus, possible esophagitis Carriage Operator: Radiologist - EKG Interpretation EKG Interpretation (Text): 02/27/17 09:38 -EKG: Sinus Tachycardia @ 104 BPM, no ST elevation or depression, chronic T wave inversion on lead III. Interpreted by ED Physician: Yes Type: 12 lead EKG Comparison: Com.w/previous EKG - Medication Orders Current Medication Orders: Discontinued Medications Albuterol/Ipratropium (Duoneb 3 Mg/0.5 Mg (3 Ml) Ud) 3 ml IH STAT STA Stop: 02/27/17 09:22 Last Admin: 02/27/17 09:30 Dose: 3 ml Albuterol/Ipratropium (Duoneb 3 Mg/0.5 Mg (3 Ml) Ud) 3 ml IH STAT STA Stop: 02/27/17 09:24 Last Admin: 02/27/17 09:42 Dose: 3 ml Famotidine (Pepcid) 20 mg IVP STAT STA Stop: 02/27/17 09:22 Last Admin: 02/27/17 09:53 Dose: 20 mg IVP Administration Document 02/27/17 09:53 CNR (Rec: 02/27/17 09:53 CNR [id number]) Charges for Administration # of IVP Administrations 1 Magnesium Sulfate/Dextrose (Magnesium Sulfate 1 Gm/100 Ml D5w) 1 gm in 100 mls @ 100 mls/hr IVPB ONCE ONE Stop: 02/27/17 11:26 Last Admin: 02/27/17 10:35 Dose: 100 mls/hr eMAR Start Stop Document 02/27/17 10:35 CNR (Rec: 02/27/17 10:35 CNR [id number]) Intravenous Solution Start Date 02/27/17 Start Time 10:35 Sodium Chloride (Sodium Chloride 0.9%) 1,000 mls @ 999 mls/hr IV .Q1H1M STA Stop: 02/27/17 11:59 Last Admin: 02/27/17 11:07 Dose: 999 mls/hr eMAR Start Stop Document 02/27/17 11:07 CNR (Rec: 02/27/17 11:08 CNR [id number]) Intravenous Solution Start Date 12/07/17 Start Time 11:08 Methylprednisolone (Solu-Medrol) 125 mg IVP STAT STA Stop: 02/27/17 09:22 Last Admin: 02/27/17 09:54 Dose: 125 mg IVP Administration Document 02/27/17 09:54 CNR (Rec: 02/27/17 09:54 CNR [id number]) Charges for Administration # of IVP Administrations 1 Ondansetron HCl (Zofran Inj) 4 mg IVP STAT STA Stop: 02/27/17 09:22 Last Admin: 02/27/17 09:53 Dose: 4 mg IVP Administration Document 02/27/17 09:53 CNR (Rec: 02/27/17 09:54 CNR [id number]) Charges for Administration # of IVP Administrations 1 - PA / DISCOUNT CLERK / Resident Statement MD/DO has reviewed & agrees with the documentation as recorded. Disposition/Present on Arrival - Present on Arrival Any Indicators Present on Arrival: No History of DVT/PE: No History of Uncontrolled Diabetes: No Urinary Catheter: No History of Decub. Ulcer: No History Surgical Site Infection Following: None - Disposition Have Diagnosis and Disposition been Completed?: Yes Diagnosis: Bronchitis, Gastritis Disposition: HOME/ ROUTINE Disposition Time: 15:38 Patient Plan: Discharge Condition: IMPROVED Additional Instructions: -Discharge home with pepcid, prednisone, albuterol MDI, albuterol, zithromax, stay hydrated, bed rest, follow up with your own pmd and armed guard within 2 days, return to the ER for any new or worsening signs or symptoms. Prescriptions: Albuterol HFA [Ventolin HFA 90 mcg/actuation (8 g)] 2 puff IH [id number] #1 in Albuterol 0.083% [Albuterol 0.083% Inhal Isa (2.5 mg/3 ml) UD] 3 ml IH QID PRN # 30 vial PRN Reason: Other Azithromycin [Zithromax] 250 mg PO DAILY #6 tab Famotidine [Pepcid] 20 mg PO BID #20 tab Prednisone 50 mg PO DAILY #5 tablet Referrals: Freddie Stanford, [Primary Care Provider] - Follow up with primary Kike Deras MD [Staff Provider] - Follow up with primary Kike Mackay MD [Staff Provider] - Follow up with primary Forms: WORK NOTE
[2017-02-27] MEDS ORDERED: Albuterol-Ipratrop 3 mg / 0.5 (3 ml) UD IH STA ×2 (09:21→09:23)
[2017-02-27 09:43] VITALS: RESP 18; TEMP 99.3; BMI 30.7
[2017-02-27 10:01] LABS: BASO # 0.03 K/mm3 (0.0-2.0); BASO % 0.2 % (0.0-3.0); GRAN # 10.67 (1.4-6.5); GRAN % 84.3 % (50.0-68.0); LYMPH # 0.9 (1.2-3.4); LYMPH % 7.4 % (22.0-35.0); MEAN CELL VOLUME 72.2 fl (80.0-105.0); MEAN CORPUSCULAR HEMOGLOBIN 22.3 pg (25.0-35.0); MEAN CORPUSCULAR HGB CONC 30.9 g/dl (31.0-37.0); MEAN PLATELET VOLUME 8.7 fl (7.0-11.0); MONO % 8.1 % (1.0-6.0); WHITE BLOOD COUNT 12.7 10^3/ul (4.5-11.0)
--- NOTE | 2017-02-27 10:15 | RAD ---
HISTORY: cough COMPARISON: No prior. FINDINGS: LUNGS: No active pulmonary disease. PLEURA: No significant pleural effusion identified, no pneumothorax apparent. CARDIOVASCULAR: Normal. OSSEOUS STRUCTURES: No significant abnormalities. VISUALIZED UPPER ABDOMEN: Normal. OTHER FINDINGS: None. IMPRESSION: No active disease.
[2017-02-27 10:19] LABS: ALB/GLOB RATIO 1.1 (1.1-1.8); ALKALINE PHOSPHATASE 118 U/L (38-126); ALT/SGPT 19 U/L (7-56); AST/SGOT 33 U/L (17-59); BILIRUBIN,TOTAL 0.8 mg/dL (0.2-1.3); BLOOD UREA NITROGEN 9 mg/dL (7-21); CALCIUM 9.3 mg/dL (8.4-10.5); CARBON DIOXIDE 25 mmol/L (21-33); CHLORIDE 97 mmol/L (98-107); GFR AFRICAN-AMERICAN > 60; GLUCOSE,RANDOM 123 mg/dL (70-110); MAGNESIUM 1.6 mg/dL (1.7-2.2); POTASSIUM 3.9 mmol/L (3.6-5.0); SODIUM 135 mmol/L (132-148); TOTAL PROTEIN 8.3 g/dL (5.8-8.3)
[2017-02-27 10:25] LABS: TROPONIN I < 0.01 ng/mL
[2017-02-27] MEDS ORDERED: Magnesium Sulfate 1 gm in D5W 1 GM/100 ML BAG IVPB ONE (10:27)
[2017-02-27] MEDS ORDERED: Sodium Chloride 0.9% 1,000 ML IV STA (10:59)
[2017-02-27 13:08] VITALS: BP 134/80
[2017-02-27] MEDS ORDERED: Iohexol 350 MG/100 ML VIAL ONE ×2 (13:12→14:59)
--- NOTE | 2017-02-27 15:29 | CT ---
PROCEDURE: CT Chest with contrast (Pulmonary Angiogram) HISTORY: tachycardic/cough, elevated d-dimer COMPARISON: 01/15/2017 TECHNIQUE: Axial computed tomography images were obtained of the chest in the pulmonary arterial phase of enhancement. Coronal and sagittal reformatted images were created and reviewed. Intravenous contrast dose: 100 cc of Omni 350 Radiation dose: Total exam DLP = 568 mGy-cm. This CT exam was performed using one or more of the following dose reduction techniques: Automated exposure control, adjustment of the mA and/or kV according to patient size, and/or use of iterative reconstruction technique. FINDINGS: PULMONARY ARTERIES: Unremarkable. No pulmonary embolism. AORTA: No acute findings. No thoracic aortic aneurysm. LUNGS: Unremarkable. No nodule, mass or pulmonary consolidation. PLEURAL SPACES: Unremarkable. No effusion or pneuomothorax. HEART: Unremarkable. No cardiomegaly. No significant pericardial effusion. LYMPH NODES: No lymphadenopathy. BONES, CHEST WALL: Unremarkable. No fracture or destructive lesion OTHER FINDINGS: There is mild to moderate mural thickening throughout the esophagus. Clinical correlation is suggested. Findings could be related to reflux. There is a small hiatal hernia IMPRESSION: No evidence of pulmonary embolus. No pulmonary infiltrates. Small hiatal hernia with mural thickening throughout the esophagus, possible esophagitis
[2017-02-27 15:35] VITALS: PULSE 90; O2SAT 96
--- NOTE | 2017-02-27 18:39 | CARD ---
APPROVED REPORT EKG Measurement Heart [id number] <Conclusion> Sinus tachycardia Cannot rule out Inferior infarct, age undetermined Abnormal ECG
== END 2017-02-27 16:38 | disposition home or self-care (01) ==
LOC: ED 08:56
DX: K29.70 Gastritis, unspecified, without bleeding (principal); J40 Bronchitis, not specified as acute or chronic; I10 Essential (primary) hypertension; Z87.891 Personal history of nicotine dependence; Z88.0 Allergy status to penicillin
CPT/HCPCS: 71010; 71275; 80053; 80320; 82550; 83615; 83735; 83880; 84484; 85025; 85378; 93005; 96374; 96375; 99285; J2405; J2930; J3475; J7040; Q9967

== ENCOUNTER 2017-02-27 22:06 | Emergency (ER) | payer MEDICAID ==
[2017-02-27 22:07] VITALS: BMI 31.4
[2017-02-27 22:25] VITALS: RESP 16; TEMP 97.9; O2SAT 97
--- NOTE | 2017-02-27 23:19 | ED PDOC ---
Arrival/HPI - General Historian: Patient <Kady Crabtree - Last Filed: 02/28/17 04:04> <Heraclio Jordan - Last Filed: 02/28/17 05:21> - General Chief Complaint: Alcohol Ingestion Time Seen by Provider: 02/27/17 22:16 - History of Present Illness Narrative History of Present Illness (Text): 02/28/17 00:40 56yr old male with hx of etoh abuse presents today with depression. pt denies SI at present time but states at time he considers hurting himself. pt denies cp or sob. no abdominal pain. no n/v. pt admits to drinking 6-8 beers and drinking vodka. no fever/chills. no urinary symptoms. no other complaints. ( Kady Crabtree) Past Medical History - Provider Review Nursing Documentation Reviewed: Yes - Travel History Have you recently traveled outside [place] w/in the past 3 mons?: No - Past History Past History: No Previous - Infectious Disease Hx of Infectious Diseases: None - Tetanus Immunization Tetanus Immunization: Unknown - Reproductive Currently : No - Cardiac Hx Cardiac Disorders: Yes Hx Hypertension: Yes - Pulmonary Hx Respiratory Disorders: Yes Hx Chronic Obstructive Pulmonary Disease (COPD): Yes - Neurological Hx Neurological Disorder: No - HEENT Hx HEENT Disorder: No - Renal Hx Renal Disorder: No - Endocrine/Metabolic Hx Endocrine Disorders: No - Hematological/Oncological Hx Blood Disorders: Yes Hx Anemia: Yes Hx Hepatitis C: No - Integumentary Hx Dermatological Disorder: No - Musculoskeletal/Rheumatological Hx Musculoskeletal Disorders: Yes Hx Back Pain: Yes Hx Falls: No - Gastrointestinal Hx Gastrointestinal Disorders: Yes Hx Gastroesophageal Reflux: Yes Hx Pancreatitis: Yes - Genitourinary/Gynecological Hx Genitourinary Disorders: No - Psychiatric Hx Psychophysiologic Disorder: Yes Hx Anxiety: Yes Hx Substance Use: Yes - Surgical History Other/Comment: orcchectomy, ventral and inguinal hernia repair - Anesthesia Hx Anesthesia: Yes - Suicidal Assessment Feels Threatened In Home Enviroment: No <Kady Crabtree - Last Filed: 02/28/17 04:04> Family/Social History - Physician Review Nursing Documentation Reviewed: Yes Family/Social History: Unknown Family HX Smoking Status: Former Smoker Hx Alcohol Use: Yes Amount per day: 10 Hx Substance Use: Yes Hx Substance Use Treatment: No <Kady Crabtree - Last Filed: 02/28/17 04:04> Allergies/Home Meds <Kady Crabtree - Last Filed: 02/28/17 04:04> <Heraclio Jordan - Last Filed: 02/28/17 05:21> Allergies/Adverse Reactions: Allergies Penicillins Allergy (Verified 02/27/17 22:25) RASH Home Medications: Home Meds Medication Instructions Recorded Confirmed No Known Home Med 02/28/17 02/28/17 Review of Systems - Review of Systems Constitutional: absent: Fatigue, Fevers Respiratory: absent: SOB, Cough Cardiovascular: absent: Chest Pain, Palpitations Gastrointestinal: absent: Abdominal Pain, Nausea, Vomiting Musculoskeletal: absent: Arthralgias Skin: absent: Rash, Pruritis Neurological: absent: Headache, Dizziness Psychiatric: Depression. absent: Anxiety <Kady Crabtree - Last Filed: 02/28/17 04:04> Physical Exam Vital Signs Reviewed: Yes Temperature: Afebrile Blood Pressure: Normal Pulse: Regular Respiratory Rate: Normal Appearance: Positive for: Well-Appearing, Non-Toxic, Comfortable Pain Distress: None Mental Status: Positive for: Alert and Oriented X 3 - Systems Exam Head: Present: Atraumatic Mouth: Present: Moist Mucous Membranes Neck: Present: Normal Range of Motion Respiratory/Chest: Present: Clear to Auscultation Cardiovascular: Present: Regular Rate and Rhythm Abdomen: No: Tenderness, Distention, Rebound, Guarding Upper Extremity: Present: Normal ROM Lower Extremity: Present: Normal ROM Skin: Present: Warm Psychiatric: Present: Alert, Oriented x 3 <Kady Crabtree - Last Filed: 02/28/17 04:04> Vital Signs Temp Pulse Resp BP Pulse Ox 02/28/17 02:07 83 16 135/81 97 02/28/17 00:07 85 16 138/80 97 02/27/17 22:23 97.9 F 89 16 140/82 97 Medical Decision Making <Kady Crabtree - Last Filed: 02/28/17 04:04> <Heraclio Jordan - Last Filed: 02/28/17 05:21> ED Course and Treatment: 02/28/17 00:43 Patient is nontoxic well-appearing in no distress vital signs are stable. pt c/ o depression; admits to drinking etoh today. CBC WNL CMP WNL Tylenol WNL Salicylate WNL Alcohol level 212 Urine drug screen + benzos UA; wnl cxr: reviewed from earlier visit today. no infiltrate. pt also had negative CT angio today. ekg normal sinus rhythm at [address] elevations pt is medically cleared for PES evaluation Case signed out to Dr. Jordan pending PES evaluation (Kady Crabtree) 02/28/17 05:20 Pt. awake alert sober.Seen and evaluated by PES.Cleared for discharge ( Heraclio Jordan) - Lab Interpretations Lab Results: 02/28/17 00:00 02/28/17 00:00 Lab Results 02/28/17 00:00: Alcohol, Quantitative 212 H 02/28/17 00:00: Salicylates < 1 L, Acetaminophen < 10.0 L 02/28/17 00:00: Sodium 137, Potassium 3.8, Chloride 98, Carbon Dioxide 22, Anion Gap 21 H, BUN 9, Creatinine 0.9, Est GFR ( Amer) > 60, Est GFR (Non -Af Amer) > 60, Random Glucose 182 H, Calcium 9.3, Total Bilirubin 0.8, AST 40, ALT 27, Alkaline Phosphatase 112, Total Protein 8.1, Albumin 4.0, Globulin 4.1, Albumin/Globulin Ratio 1.0 L 02/28/17 00:00: WBC 8.0 D, RBC 4.49, Hgb 9.9 L, Hct 32.1 L, MCV 71.5 L, MCH 22.0 L, MCHC 30.8 L, RDW 17.8 H, Plt Count 255, MPV 8.4, Gran % 92.0 H, Lymph % (Auto) 7.4 L, [place] % (Auto) 0.6 L, Eos % (Auto) 0.0 L, Baso % (Auto) 0.0, Gran # 7.34 H, Lymph # 0.6 L, [place] # 0.1, Eos # 0.0, Baso # 0.00, Neutrophils % ( Manual) 91 H, Band Neutrophils % 2, Lymphocytes % (Manual) 5 L, Monocytes % ( Manual) 2, Platelet Evaluation Normal, Hypochromasia Slight, Anisocytosis ( manual) 1+ 02/27/17 23:17: Urine Opiates Screen Negative, Urine Methadone Screen Negative, Ur Barbiturates Screen Negative, Ur Phencyclidine Scrn Negative, Ur Amphetamines Screen Negative, U Benzodiazepines Scrn Positive, U Oth Cocaine Metabols Negative, U Cannabinoids Screen Negative 02/27/17 23:17: Urine Color Yellow, Urine Appearance Clear, Urine pH 6.0, Ur Specific [place] <= 1.005, Urine Protein Negative, Urine Glucose (UA) Negative, Urine Ketones Negative, Urine Blood Negative, Urine Nitrate Negative, Urine Bilirubin Negative, Urine Urobilinogen 0.2, Ur Leukocyte Esterase Negative - Medication Orders Current Medication Orders: Discontinued Medications Chlordiazepoxide (Librium) 50 mg PO STAT STA PRN Reason: Protocol Stop: 02/28/17 03:27 Last Admin: 02/28/17 03:38 Dose: 50 mg - PA / REVIEW ENGINEER / Resident Statement / has reviewed & agrees with the documentation as recorded. / has examined the patient and agrees with the treatment plan. <Heraclio Jordan - Last Filed: 02/28/17 05:21> Disposition/Present on Arrival - Present on Arrival History of DVT/PE: No History of Uncontrolled Diabetes: No Urinary Catheter: No History of Decub. Ulcer: No History Surgical Site Infection Following: None <Kady Crabtree - Last Filed: 02/28/17 04:04> - Present on Arrival Any Indicators Present on Arrival: No - Disposition Have Diagnosis and Disposition been Completed?: Yes Disposition Time: 05:20 Patient Plan: Discharge <Heraclio Jordan - Last Filed: 02/28/17 05:21> - Disposition Diagnosis: Alcohol abuse Disposition: HOME/ ROUTINE Discharge Instructions (ExitCare): Alcohol Intoxication (ED), Abuse of Alcohol (ED) Referrals: Alcoholics Anonymous [Outside] - Follow up with primary Forms: [employer] (Lao)
[2017-02-27 23:23] LABS: URINE BILIRUBIN NEGATIVE (NEGATIVE); URINE BLOOD NEGATIVE (NEGATIVE); URINE GLUCOSE (UA) NEGATIVE (NEGATIVE); URINE KETONE NEGATIVE (NEGATIVE); URINE LEUKOCYTE ESTERASE NEGATIVE Leu/uL (NEGATIVE); URINE PROTEIN NEGATIVE mg/dL (<30 mg/dL); URINE UROBILINOGEN 0.2 E.U./dL (<1 E.U./dL)
[2017-02-27 23:27] LABS: URINE APPEARANCE CLEAR (CLEAR); URINE COLOR YELLOW (YELLOW)
[2017-02-28 00:21] LABS: GRAN # 7.34 (1.4-6.5); HEMATOCRIT 32.1 % (42.0-52.0); LYMPH # 0.6 (1.2-3.4); LYMPH % 7.4 % (22.0-35.0); MEAN CELL VOLUME 71.5 fl (80.0-105.0); MEAN CORPUSCULAR HGB CONC 30.8 g/dl (31.0-37.0); MEAN PLATELET VOLUME 8.4 fl (7.0-11.0); MONO # 0.1 (0.1-0.6); MONO % 0.6 % (1.0-6.0); PLATELET COUNT 255 10^3/uL (120.0-450.0); RED CELL DISTRIBUTION WIDTH 17.8 % (11.5-14.5)
[2017-02-28 00:47] LABS: ALKALINE PHOSPHATASE 112 U/L (38-126); ALT/SGPT 27 U/L (7-56); AST/SGOT 40 U/L (17-59); BILIRUBIN,TOTAL 0.8 mg/dL (0.2-1.3); BLOOD UREA NITROGEN 9 mg/dL (7-21); CALCIUM 9.3 mg/dL (8.4-10.5); CARBON DIOXIDE 22 mmol/L (21-33); CHLORIDE 98 mmol/L (98-107); GFR AFRICAN-AMERICAN > 60; GLUCOSE,RANDOM 182 mg/dL (70-110); POTASSIUM 3.8 mmol/L (3.6-5.0); SODIUM 137 mmol/L (132-148); TOTAL PROTEIN 8.1 g/dL (5.8-8.3)
[2017-02-28 00:54] LABS: ANISOCYTOSIS 1+; BAND 2 % (0-2); HYPOCHROMIA SLIGHT; NEUTROPHIL 91 % (50.0-70.0); PLATELET ESTIMATE NORMAL (NORMAL)
[2017-02-28 05:37] VITALS: BP 134/80; PULSE 82
--- NOTE | 2017-02-28 16:21 | CARD ---
APPROVED REPORT EKG Measurement Heart [id number] <Conclusion> Normal sinus rhythm Normal ECG
== END 2017-02-28 05:45 | disposition home or self-care (01) ==
LOC: ED 22:06
DX: F10.10 Alcohol abuse, uncomplicated (principal); I10 Essential (primary) hypertension; Z87.891 Personal history of nicotine dependence; Z88.0 Allergy status to penicillin

== ENCOUNTER 2017-02-28 18:38 | Emergency (ER) | payer MEDICAID ==
[2017-02-28 18:54] VITALS: BMI 28.0
[2017-02-28 18:55] VITALS: RESP 18; TEMP 98.2
--- NOTE | 2017-02-28 19:43 | ED PDOC ---
Arrival/HPI - General Historian: Patient <Jeannette Smith A - Last Filed: 03/01/17 01:58> <Heraclio Jordan - Last Filed: 03/01/17 06:06> - General Chief Complaint: Alcohol Ingestion Time Seen by Provider: 02/28/17 19:21 - History of Present Illness Narrative History of Present Illness (Text): 02/28/17 19:42 56yo male with PMhx of alcohol abuse and well known to ED for alcohol intoxication biba for alcohol intoxication. Patient admits to drinking couple of bottles of beer. He was picked from the street. Denies any somatic complaint in ED. (Jeannette Smith A) Past Medical History - Provider Review Nursing Documentation Reviewed: Yes - Past History Past History: No Previous - Infectious Disease Hx of Infectious Diseases: None - Tetanus Immunization Tetanus Immunization: Unknown - Reproductive Currently : No - Cardiac Hx Cardiac Disorders: Yes Hx Hypertension: Yes - Pulmonary Hx Respiratory Disorders: Yes Hx Chronic Obstructive Pulmonary Disease (COPD): Yes - Neurological Hx Neurological Disorder: No - HEENT Hx HEENT Disorder: No - Renal Hx Renal Disorder: No - Endocrine/Metabolic Hx Endocrine Disorders: No - Hematological/Oncological Hx Blood Disorders: Yes Hx Anemia: Yes Hx Hepatitis C: No - Integumentary Hx Dermatological Disorder: No - Musculoskeletal/Rheumatological Hx Musculoskeletal Disorders: Yes Hx Back Pain: Yes Hx Falls: No - Gastrointestinal Hx Gastrointestinal Disorders: Yes Hx Gastroesophageal Reflux: Yes Hx Pancreatitis: Yes - Genitourinary/Gynecological Hx Genitourinary Disorders: No - Psychiatric Hx Psychophysiologic Disorder: Yes Hx Anxiety: Yes Hx Substance Use: Yes - Surgical History Other/Comment: orcchectomy, ventral and inguinal hernia repair - Anesthesia Hx Anesthesia: Yes - Suicidal Assessment Feels Threatened In Home Enviroment: No <Jeannette Smith A - Last Filed: 03/01/17 01:58> Family/Social History - Physician Review Nursing Documentation Reviewed: Yes Family/Social History: Unknown Family HX Smoking Status: Former Smoker Hx Alcohol Use: Yes Amount per day: 10 Hx Substance Use: Yes Hx Substance Use Treatment: No <Jeannette Smith A - Last Filed: 03/01/17 01:58> Allergies/Home Meds <Jeannette Smith A - Last Filed: 03/01/17 01:58> <Heraclio Jordan - Last Filed: 03/01/17 06:06> Allergies/Adverse Reactions: Allergies Penicillins Allergy (Verified 02/27/17 22:25) RASH Home Medications: Home Meds Medication Instructions Recorded Confirmed No Known Home Med 02/28/17 02/28/17 Review of Systems - Physician Review All systems were reviewed & negative as marked: Yes - Review of Systems Systems not reviewed;Unavailable: Intoxicated Constitutional: Normal Eyes: Normal ENT: Normal Respiratory: Normal Cardiovascular: Normal Gastrointestinal: Normal Genitourinary Male: Normal Musculoskeletal: Normal Skin: Normal Neurological: Normal Endocrine: Normal Hemo/Lymphatic: Normal Psychiatric: Normal <Diru,Happiness A - Last Filed: 03/01/17 01:58> Physical Exam Vital Signs Reviewed: Yes Temperature: Afebrile Blood Pressure: Normal Pulse: Regular Respiratory Rate: Normal Appearance: Positive for: Well-Appearing, Non-Toxic, Comfortable Pain Distress: None Mental Status: Positive for: Alert and Oriented X 3 Finger Stick Blood Glucose: 160 - Systems Exam Head: Present: Atraumatic, Normocephalic Pupils: Present: PERRL Extroacular Muscles: Present: EOMI Conjunctiva: Present: Normal Mouth: Present: Moist Mucous Membranes Neck: Present: Normal Range of Motion Respiratory/Chest: Present: Clear to Auscultation, Good Air Exchange. No: Respiratory Distress, Accessory Muscle Use Cardiovascular: Present: Regular Rate and Rhythm, Normal S1, S2. No: Murmurs Abdomen: Present: Normal Bowel Sounds. No: Tenderness, Distention, Peritoneal Signs Back: Present: Normal Inspection Upper Extremity: Present: Normal Inspection. No: Cyanosis, Edema Lower Extremity: Present: Normal Inspection. No: Edema Neurological: Present: GCS=15, CN II-XII Intact, Speech Normal Skin: Present: Warm, Dry, Normal Color. No: Rashes Psychiatric: Present: Alert, Oriented x 3, Normal Insight, Normal Concentration <Diru,Happiness A - Last Filed: 03/01/17 01:58> Vital Signs Temp Pulse Resp BP Pulse Ox 03/01/17 03:59 83 18 127/79 96 03/01/17 02:00 84 18 130/75 95 03/01/17 00:39 82 18 127/78 99 02/28/17 22:39 84 18 131/80 98 02/28/17 20:39 88 18 132/81 98 02/28/17 18:55 98.2 F 90 18 136/83 99 ED Course and Treatment: 02/28/17 23:56 Pt in ED for stated history. He was calm and hemodynamically stable. He asked for food and was fed. He will be observe in ED for sobriety. 03/01/17 01:58 Case was endorsed to Dr. Jordan to re evaluate pt and dispo (Jeannette Smith) - PA / FACING BASTER / Resident Statement / has reviewed & agrees with the documentation as recorded. / has examined the patient and agrees with the treatment plan. <Heraclio Jordan - Last Filed: 03/01/17 06:06> Disposition/Present on Arrival - Present on Arrival Any Indicators Present on Arrival: No History of DVT/PE: No History of Uncontrolled Diabetes: No Urinary Catheter: No History of Decub. Ulcer: No History Surgical Site Infection Following: None - Disposition Have Diagnosis and Disposition been Completed?: Yes <Jeannette Smith - Last Filed: 03/01/17 01:58> - Present on Arrival Any Indicators Present on Arrival: No - Disposition Have Diagnosis and Disposition been Completed?: Yes Disposition Time: 05:30 <Heraclio Jordan - Last Filed: 03/01/17 06:06> - Disposition Diagnosis: Alcohol abuse Disposition: HOME/ ROUTINE Patient Problems: Current Active Problems Problem Status Onset ETOH abuse Chronic Condition: STABLE Referrals: Freddie Diane Req, [Primary Care Provider] - Follow up with primary Alcoholics Anonymous [Outside] - Follow up with primary Forms: [employer] (Malaysian)
[2017-03-01 04:00] VITALS: O2SAT 96
[2017-03-01 06:49] VITALS: BP 130/74; PULSE 82
== END 2017-03-01 07:17 | disposition home or self-care (01) ==
LOC: ED 18:38
DX: F10.129 Alcohol abuse with intoxication, unspecified (principal); I10 Essential (primary) hypertension; Z87.891 Personal history of nicotine dependence; Z88.0 Allergy status to penicillin

== ENCOUNTER 2017-03-02 23:17 | Emergency (ER) | payer MEDICAID ==
[2017-03-02 23:38] VITALS: BMI 30.7
--- NOTE | 2017-03-02 23:43 | ED PDOC ---
Arrival/HPI - General Historian: Patient - History of Present Illness Time/Duration: Prior to Arrival Context: Street <Antonio Arnold - Last Filed: 03/02/17 23:43> <Tommie Godfrey - Last Filed: 03/03/17 05:50> - General Time Seen by Provider: 03/02/17 23:40 - History of Present Illness Narrative History of Present Illness (Text): 03/02/17 23:42 This 56yo male with PMhx of alcohol abuse and well known to ED for alcohol intoxication biba for alcohol intoxication. Patient admits to drinking couple of bottles of beer. He was picked from the street. Denies any somatic complaint in ED. (Antonio Arnold) Past Medical History - Provider Review Nursing Documentation Reviewed: Yes - Past History Past History: No Previous - Infectious Disease Hx of Infectious Diseases: None - Tetanus Immunization Tetanus Immunization: Unknown - Reproductive Currently : No - Cardiac Hx Cardiac Disorders: Yes Hx Hypertension: Yes - Pulmonary Hx Respiratory Disorders: Yes Hx Chronic Obstructive Pulmonary Disease (COPD): Yes - Neurological Hx Neurological Disorder: No - HEENT Hx HEENT Disorder: No - Renal Hx Renal Disorder: No - Endocrine/Metabolic Hx Endocrine Disorders: No - Hematological/Oncological Hx Blood Disorders: Yes Hx Anemia: Yes Hx Hepatitis C: No - Integumentary Hx Dermatological Disorder: No - Musculoskeletal/Rheumatological Hx Musculoskeletal Disorders: Yes Hx Back Pain: Yes Hx Falls: No - Gastrointestinal Hx Gastrointestinal Disorders: Yes Hx Gastroesophageal Reflux: Yes Hx Pancreatitis: Yes - Genitourinary/Gynecological Hx Genitourinary Disorders: No - Psychiatric Hx Psychophysiologic Disorder: Yes Hx Anxiety: Yes Hx Substance Use: Yes - Surgical History Other/Comment: orcchectomy, ventral and inguinal hernia repair - Anesthesia Hx Anesthesia: Yes - Suicidal Assessment Feels Threatened In Home Enviroment: No <Antonio Arnold - Last Filed: 03/02/17 23:43> Family/Social History - Physician Review Nursing Documentation Reviewed: Yes Family/Social History: Other (noncontributory) Smoking Status: Former Smoker Hx Alcohol Use: Yes Amount per day: 10 Hx Substance Use: Yes Hx Substance Use Treatment: No <Antonio Arnold - Last Filed: 03/02/17 23:43> Allergies/Home Meds <Antonio Arnold - Last Filed: 03/02/17 23:43> <Tomime Godfrey - Last Filed: 03/03/17 05:50> Allergies/Adverse Reactions: Allergies Penicillins Allergy (Verified 02/27/17 22:25) RASH Home Medications: Home Meds Medication Instructions Recorded Confirmed No Known Home Med 02/28/17 02/28/17 Review of Systems - Review of Systems Constitutional: Normal. absent: Fatigue, Weight Change, Fevers Eyes: Normal ENT: Normal Respiratory: Normal. absent: SOB, Cough Cardiovascular: Normal. absent: Chest Pain, Palpitations Gastrointestinal: Normal. absent: Abdominal Pain, Nausea, Vomiting Genitourinary Male: Normal. absent: Dysuria Musculoskeletal: Normal. absent: Back Pain Skin: Normal. absent: Rash Neurological: Normal. absent: Headache, Dizziness Endocrine: Normal Hemo/Lymphatic: Normal Psychiatric: Normal, Other (alcohol intoxicaton). absent: Anxiety, Depression <Antonio Arnold P - Last Filed: 03/02/17 23:43> Physical Exam Temperature: Afebrile Blood Pressure: Normal Pulse: Regular Respiratory Rate: Normal Appearance: Positive for: Well-Appearing, Non-Toxic, Comfortable Pain Distress: None - Systems Exam Head: Present: Atraumatic, Normocephalic Pupils: Present: PERRL Extroacular Muscles: Present: EOMI Conjunctiva: Present: Normal Mouth: Present: Moist Mucous Membranes Neck: Present: Normal Range of Motion Respiratory/Chest: Present: Clear to Auscultation, Good Air Exchange. No: Respiratory Distress, Accessory Muscle Use Cardiovascular: Present: Regular Rate and Rhythm, Normal S1, S2. No: Murmurs Abdomen: Present: Normal Bowel Sounds. No: Tenderness, Distention, Peritoneal Signs Upper Extremity: Present: Normal Inspection, Normal ROM. No: Cyanosis, Edema Lower Extremity: Present: Normal Inspection. No: Edema Neurological: Present: GCS=15, CN II-XII Intact, Speech Normal Skin: Present: Warm, Dry, Normal Color. No: Rashes Psychiatric: Present: Alert, Oriented x 3, Intoxicated <Antonio Arnold P - Last Filed: 03/02/17 23:43> Vital Signs Temp Pulse Resp BP Pulse Ox 03/03/17 05:00 99 H 19 137/80 97 03/03/17 03:14 97 H 16 145/91 H 100 03/02/17 23:38 97.7 F 100 H 19 148/77 97 - PA / INTERN / Resident Statement / has reviewed & agrees with the documentation as recorded. / has examined the patient and agrees with the treatment plan. <Tommie Godfrey - Last Filed: 03/03/17 05:50> Disposition/Present on Arrival - Present on Arrival History of DVT/PE: No History of Uncontrolled Diabetes: No Urinary Catheter: No History Surgical Site Infection Following: None <Antonio Arnold - Last Filed: 03/02/17 23:43> - Present on Arrival Any Indicators Present on Arrival: No - Disposition Have Diagnosis and Disposition been Completed?: Yes Disposition Time: 05:49 <Tommie Godfrey - Last Filed: 03/03/17 05:50> - Disposition Diagnosis: Alcohol abuse Disposition: HOME/ ROUTINE Condition: GOOD Discharge Instructions (ExitCare): Abuse of Alcohol (ED) Forms: [employer] (Romansh)
[2017-03-02 23:59] VITALS: TEMP 97.7
[2017-03-03 05:58] VITALS: BP 120/71; PULSE 89; RESP 18; O2SAT 99
== END 2017-03-03 06:29 | disposition home or self-care (01) ==
LOC: ED 23:17
DX: F10.129 Alcohol abuse with intoxication, unspecified (principal); I10 Essential (primary) hypertension; J44.9 Chronic obstructive pulmonary disease, unspecified; Z87.891 Personal history of nicotine dependence; Z88.0 Allergy status to penicillin

== ENCOUNTER 2017-03-03 17:45 | Emergency (ER) | payer MEDICAID ==
[2017-03-03 18:08] VITALS: BMI 31.1
[2017-03-03] MEDS ORDERED: TDAP Vaccine 0.5 mL Syr IM ONE (19:09)
--- NOTE | 2017-03-03 20:02 | CT ---
EXAM: CT Head Without Intravenous Contrast EXAM DATE/TIME: 03/03/2017 7:08 PM CLINICAL HISTORY: 56 years old, male; Injury or trauma; Fall; Initial encounter; Abrasion; Head, generalized; Patient HX: Fall ETOH TECHNIQUE: Axial computed tomography images of the head/brain without intravenous contrast. All CT scans at this facility use one or more dose reduction techniques, viz.: automated exposure control; ma/kV adjustment per patient size (including targeted exams where dose is matched to indication; i.e. head); or iterative reconstruction technique. COMPARISON: CT - HEAD W/O CONTRAST 2015-01-18 03:07 FINDINGS: Brain: There is dilatation of sulci gyri and ventricles. There is no midline shift. There is decreased attenuation in periventricular white matter. There are no focal masses. There are no focal hemorrhages. Licea-white differentiation is visualized. Ventricles: See above. Bones: Cranial vault is intact. Soft tissues: unremarkable Sinuses: There is mucoperiosteal thickening in the left maxillary sinus with small air-fluid level. Orbital contents are unremarkable. Ears and mastoids: Middle ears and mastoids are unremarkable. Dental: Streak artifact from dental fillings degrades image quality. IMPRESSION: Atrophy and small vessel disease, no acute intracranial abnormality; left maxillary sinus disease
--- NOTE | 2017-03-03 20:08 | CT ---
EXAM: CT Maxillofacial Without Intravenous Contrast EXAM DATE/TIME: 03/03/2017 7:08 PM CLINICAL HISTORY: 56 years old, male; Injury or trauma; Fall; Initial encounter; Abrasion; Forehead; Patient HX: Fall ETOH TECHNIQUE: Axial computed tomography images of the face without intravenous contrast. All CT scans at this facility use one or more dose reduction techniques, viz.: automated exposure control; ma/kV adjustment per patient size (including targeted exams where dose is matched to indication; i.e. head); or iterative reconstruction technique. Coronal and sagittal reformatted images were created and reviewed. COMPARISON: CT - MAXILLOFACIAL W/O CONTRAST 2015-01-08 21:48 FINDINGS: Bones/joints: There are no acute facial bone fractures. There are degenerative changes in the upper cervical spine. Soft tissues: There is minimal frontal soft tissue bruising. Lymph nodes: There is shotty adenopathy. Orbits: Orbital contents are unremarkable. Salivary glands: Parotid and submandibular glands are unremarkable. Sinuses: There is mucoperiosteal thickening in the maxillary sinuses much greater on the left. There is a small air-fluid level in the left maxillary sinus. A posterior left maxillary molar is adjacent to the base of the left maxillary sinus. Minimal mucosal thickening in the frontal and sphenoid sinuses. Ears and mastoids: Middle ears and mastoids are unremarkable. Dental: Streak artifact from dental fillings degrades image quality. There are dental caries and erosions. Brain: No focal abnormalities are seen in visualized portion of the brain. There are atrophic changes. IMPRESSION: No acute facial bone fracture; left maxillary sinus disease; dental disease, dental evaluation advised
--- NOTE | 2017-03-03 21:05 | ED PDOC ---
Arrival/HPI - General Historian: Patient - History of Present Illness Symptom Onset: Sudden Symptom Course: Unchanged Activities at Onset: Rest Context: Home <Jayne Lu PA-C - Last Filed: 03/04/17 01:57> <NgoclindyTommie - Last Filed: 03/04/17 06:18> - General Chief Complaint: Trauma Time Seen by Provider: 03/03/17 18:14 - History of Present Illness Narrative History of Present Illness (Text): 03/03/17 21:08 A 56 year old male presents to the emergency department complaining of abrasion to face and chin. Patient reports to drinking today. Patient is a chronic alcoholic. Reports he tripped and fell face forward, unsure if he passed out. Patient presents complaining of mild headache, nausea and pain to left ribs. Notes pain to left ribs is worse with movement and palpation. Patient denies any shortness of breath, abdominal pain, neck pain, back pain or any other complaints at this time. (Jayne Lu PA-C) Past Medical History - Provider Review Nursing Documentation Reviewed: Yes - Past History Past History: No Previous - Infectious Disease Hx of Infectious Diseases: None - Tetanus Immunization Tetanus Immunization: Unknown - Cardiac Hx Cardiac Disorders: Yes Hx Hypertension: Yes - Pulmonary Hx Respiratory Disorders: Yes Hx Chronic Obstructive Pulmonary Disease (COPD): Yes - Neurological Hx Neurological Disorder: No - HEENT Hx HEENT Disorder: No - Renal Hx Renal Disorder: No - Endocrine/Metabolic Hx Endocrine Disorders: No - Hematological/Oncological Hx Blood Disorders: Yes Hx Anemia: Yes Hx Hepatitis C: No - Integumentary Hx Dermatological Disorder: No - Musculoskeletal/Rheumatological Hx Musculoskeletal Disorders: Yes Hx Back Pain: Yes Hx Falls: No - Gastrointestinal Hx Gastrointestinal Disorders: Yes Hx Gastroesophageal Reflux: Yes Hx Pancreatitis: Yes - Genitourinary/Gynecological Hx Genitourinary Disorders: No - Psychiatric Hx Psychophysiologic Disorder: Yes Hx Anxiety: Yes Hx Substance Use: Yes - Surgical History Other/Comment: orcchectomy, ventral and inguinal hernia repair - Anesthesia Hx Anesthesia: Yes - Suicidal Assessment Feels Threatened In Home Enviroment: No <Jayne Lu PA-C - Last Filed: 03/04/17 01:57> Family/Social History - Physician Review Nursing Documentation Reviewed: Yes Family/Social History: No Known Family HX Smoking Status: Former Smoker Hx Alcohol Use: Yes Frequency of alcohol use: Daily Amount per day: 10 Hx Substance Use: Yes Hx Substance Use Treatment: No <Jayne Lu PA-C - Last Filed: 03/04/17 01:57> Allergies/Home Meds <Jayne Lu PA-C - Last Filed: 03/04/17 01:57> <Tommie Godfrey - Last Filed: 03/04/17 06:18> Allergies/Adverse Reactions: Allergies Penicillins Allergy (Verified 02/27/17 22:25) RASH Home Medications: Home Meds Medication Instructions Recorded Confirmed No Known Home Med 02/28/17 03/03/17 Review of Systems - Physician Review All systems were reviewed & negative as marked: Yes - Review of Systems Respiratory: absent: SOB Gastrointestinal: Nausea. absent: Abdominal Pain Musculoskeletal: Other (left rib pain). absent: Back Pain, Neck Pain Skin: Other (facial abrasion) Neurological: Headache <Jayne Lu PA-C - Last Filed: 03/04/17 01:57> Physical Exam Vital Signs Reviewed: Yes Temperature: Afebrile Blood Pressure: Normal Pulse: Regular Respiratory Rate: Normal Appearance: Positive for: Comfortable, Other (ill-kept; alcohol on breath) Pain Distress: None Mental Status: Positive for: Alert and Oriented X 3 Finger Stick Blood Glucose: 98 - Systems Exam Head: Present: Normocephalic, Abrasion (chin) Pupils: Present: PERRL Extroacular Muscles: Present: EOMI Conjunctiva: Present: Normal Mouth: Present: Moist Mucous Membranes Nose (External): Present: Abrasion (nasal bridge) Nose (Internal): Present: Other (dry blood to left nares) Neck: Present: Normal Range of Motion Respiratory/Chest: Present: Clear to Auscultation, Good Air Exchange. No: Respiratory Distress, Accessory Muscle Use Cardiovascular: Present: Regular Rate and Rhythm, Normal S1, S2. No: Murmurs Abdomen: Present: Normal Bowel Sounds. No: Tenderness, Distention, Peritoneal Signs Back: Present: Normal Inspection Upper Extremity: Present: Other (tenderness to left lower ribs). No: Cyanosis, Edema Lower Extremity: Present: Normal Inspection. No: Edema Neurological: Present: GCS=15, CN II-XII Intact, Speech Normal Skin: Present: Warm, Dry, Normal Color. No: Rashes Psychiatric: Present: Alert, Oriented x 3, Normal Insight, Normal Concentration <Jayne Lu PA-C - Last Filed: 03/04/17 01:57> Vital Signs Temp Pulse Resp BP Pulse Ox 03/04/17 03:12 98.1 F 90 17 99 03/03/17 22:45 95 H 18 97 03/03/17 18:07 98.2 F 86 18 120/70 96 Medical Decision Making <Jayne Lu PA-C - Last Filed: 03/04/17 01:57> <Tommie Godfrey - Last Filed: 03/04/17 06:18> ED Course and Treatment: 03/03/17 21:02 Impression: A 56 year old male with alcohol intoxication, mild headache, nausea, left rib pain and facial abrasion. Plan: -- CT head -- CT maxillofacial -- Radiology left ribs -- Boostrix -- Reassess and disposition Prior Visits: Notes and results from previous visits were reviewed. Patient was last seen in the emergency department on 03/02/17 for evaluation of alcohol intoxication. Progress Notes: CT Head Without Intravenous Contrast IMPRESSION: Atrophy and small vessel disease, no acute intracranial abnormality ; left maxillary sinus disease. Dictated and Authenticated by: Niurka Gan MD 03/03/2017 8:02 PM Eastern Time ([place] & [place]) CT Maxillofacial Without Intravenous Contrast IMPRESSION: No acute facial bone fracture; left maxillary sinus disease; dental disease, dental evaluation advised. Dictated and Authenticated by: Niurka Gan MD 03/03/2017 8:08 PM Eastern Time ([place] & [place]) XR Left Ribs and AP Chest, 3 or More Views FINDINGS: Heart: Heart size is accentuated by bending and shallow inspiration. Mediastinum : Mediastinal and hilar contours are unremarkable Vascularity: Pulmonary vascularity is normal. Lungs: Lungs are clear. Pleura: There are no effusions. There is no pneumothorax. Osseous structures: There are degenerative changes in the spine. There are no acute displaced rib fractures. IMPRESSION: No acute disease in the chest, no acute displaced rib fracture seen. Dictated and Authenticated by: Niurka Gan MD 03/03/2017 9:42 PM Eastern Time ([place] & [place]) On re-evaluation, patient is awake, alert and oriented x3 in no acute distress. Patient is able to stand up and ambulate with no assistance. Dx results d/w the patient. Advised to drink plenty of fluids and to f/u with the clinic. ( Jayne Lu PA-C) - RAD Interpretation Radiology Orders: 03/03/17 19:08 HEAD W/O CONTRAST [CT] Stat MAXILLOFACIAL W/O CONTRAST [CT] Stat RIBS LEFT & PA CHEST [RAD] Stat - Medication Orders Current Medication Orders: Discontinued Medications Tetanus/Reduced Diphtheria/Acell Pertussis (Boostrix Vaccine Inj) 0.5 ml IM .ONCE ONE Stop: 03/03/17 19:10 Last Admin: 03/03/17 19:20 Dose: 0.5 ml Immunization Registry Document 03/03/17 19:20 SC (Rec: 03/03/17 19:20 SC [id number]) Immunization Registry Consent Date 02/28/17 - PA / HEAD USHER / Resident Statement [facility] has reviewed & agrees with the documentation as recorded. - Scribe Statement The provider has reviewed the documentation as recorded by the Scribe <Jayne Lu PA-C - Last Filed: 03/04/17 01:57> - PA / HEAD USHER / Resident Statement / has reviewed & agrees with the documentation as recorded. / has examined the patient and agrees with the treatment plan. <Tommie Godfrey - Last Filed: 03/04/17 06:18> - Scribe Statement Reynold Ballesteros Provider Scribe Attestation: All medical record entries made by the Scribe were at my direction and personally dictated by me. I have reviewed the chart and agree that the record accurately reflects my personal performance of the history, physical exam, medical decision making, and the department course for this patient. I have also personally directed, reviewed, and agree with the discharge instructions and disposition. (Jayne Lu PA-C) Disposition/Present on Arrival - Present on Arrival Any Indicators Present on Arrival: No History of DVT/PE: No History of Uncontrolled Diabetes: No Urinary Catheter: No History of Decub. Ulcer: No History Surgical Site Infection Following: None - Disposition Have Diagnosis and Disposition been Completed?: Yes Patient Plan: Discharge <Jayne Lu PA-C - Last Filed: 03/04/17 01:57> - Present on Arrival Any Indicators Present on Arrival: No - Disposition Have Diagnosis and Disposition been Completed?: Yes Disposition Time: 06:18 <Tommie Godfrey - Last Filed: 03/04/17 06:18> - Disposition Diagnosis: Alcohol intoxication, Alcohol abuse, Facial abrasion, Head injury, Chest wall contusion Disposition: HOME/ ROUTINE Condition: STABLE Discharge Instructions (ExitCare): Head Injury (ED), Alcohol Intoxication (ED) , Abrasion (ED) Print Language: LITHUANIAN Referrals: Tommie Alexander MD [Primary Care Provider] - Follow up with primary Forms: [employer] (Bulgarian)
--- NOTE | 2017-03-03 21:43 | RAD ---
EXAM: XR Left Ribs and AP Chest, 3 or More Views EXAM DATE/TIME: 03/03/2017 7:08 PM CLINICAL HISTORY: 56 years old, male; Injury or trauma; Fall; Initial encounter; Rib area, left side; Blunt trauma TECHNIQUE: Frontal and oblique views of the left ribs and frontal view of the chest. COMPARISON: DX - CHEST PORTABLE 2017-02-27 09:54 FINDINGS: Heart: Heart size is accentuated by bending and shallow inspiration. Mediastinum: Mediastinal and hilar contours are unremarkable Vascularity: Pulmonary vascularity is normal. Lungs: Lungs are clear. Pleura: There are no effusions. There is no pneumothorax. Osseous structures: There are degenerative changes in the spine. There are no acute displaced rib fractures. IMPRESSION: No acute disease in the chest, no acute displaced rib fracture seen
[2017-03-04 03:13] VITALS: TEMP 98.1; O2SAT 99
[2017-03-04 06:27] VITALS: BP 136/78; PULSE 84; RESP 18
== END 2017-03-04 06:27 | disposition home or self-care (01) ==
LOC: ED 17:45
DX: F10.129 Alcohol abuse with intoxication, unspecified (principal); S00.81XA Abrasion of other part of head, initial encounter; S20.212A Contusion of left front wall of thorax, initial encounter; W01.0XXA Fall on same level from slipping, tripping and stumbling without subsequent striking against object, initial encounter; Z23 Encounter for immunization; I10 Essential (primary) hypertension; Z87.891 Personal history of nicotine dependence; Z88.0 Allergy status to penicillin; J44.9 Chronic obstructive pulmonary disease, unspecified

== ENCOUNTER 2017-03-04 16:15 | Emergency (ER) | payer MEDICAID ==
[2017-03-04 16:16] VITALS: BMI 31.1
--- NOTE | 2017-03-04 16:43 | ED PDOC ---
Arrival/HPI - General Chief Complaint: Alcohol Ingestion Time Seen by Provider: 03/04/17 16:17 - History of Present Illness Narrative History of Present Illness (Text): 56M complains of pain in his left ribs from falling last night. he was seen here last night after the fall and had rib xray at that time which were negative. he says today he was drinking beer and was approached by police outside who then called an ambulance for him. he denies abdominal pain to me. Past Medical History - Past History Past History: No Previous - Infectious Disease Hx of Infectious Diseases: None - Tetanus Immunization Tetanus Immunization: Unknown - Cardiac Hx Cardiac Disorders: Yes Hx Hypertension: Yes - Pulmonary Hx Respiratory Disorders: Yes Hx Chronic Obstructive Pulmonary Disease (COPD): Yes - Neurological Hx Neurological Disorder: No - HEENT Hx HEENT Disorder: No - Renal Hx Renal Disorder: No - Endocrine/Metabolic Hx Endocrine Disorders: No - Hematological/Oncological Hx Blood Disorders: Yes Hx Anemia: Yes Hx Hepatitis C: No - Integumentary Hx Dermatological Disorder: No - Musculoskeletal/Rheumatological Hx Musculoskeletal Disorders: Yes Hx Back Pain: Yes Hx Falls: No - Gastrointestinal Hx Gastrointestinal Disorders: Yes Hx Gastroesophageal Reflux: Yes Hx Pancreatitis: Yes - Genitourinary/Gynecological Hx Genitourinary Disorders: No - Psychiatric Hx Psychophysiologic Disorder: Yes Hx Anxiety: Yes Hx Substance Use: Yes - Surgical History Other/Comment: orcchectomy, ventral and inguinal hernia repair - Anesthesia Hx Anesthesia: Yes Hx Anesthesia Reactions: No - Suicidal Assessment Feels Threatened In Home Enviroment: No Family/Social History Family/Social History: Other (nc) Smoking Status: Former Smoker Hx Alcohol Use: Yes Amount per day: 10 Hx Substance Use: Yes Hx Substance Use Treatment: No Allergies/Home Meds Allergies/Adverse Reactions: Allergies Penicillins Allergy (Mild, Verified 03/04/17 20:54) RASH Home Medications: Home Meds Medication Instructions Recorded Confirmed No Known Home Med 02/28/17 03/04/17 Review of Systems - Review of Systems Constitutional: absent: Fevers Respiratory: absent: SOB, Cough Cardiovascular: absent: Chest Pain Gastrointestinal: absent: Abdominal Pain, Nausea, Vomiting Musculoskeletal: absent: Back Pain, Neck Pain Neurological: absent: Headache, Dizziness, Focal Weakness Physical Exam Vital Signs Temp Pulse Resp BP Pulse Ox 03/04/17 17:16 97.7 F 90 14 119/78 95 Appearance: Positive for: Well-Appearing, Non-Toxic, Comfortable Pain Distress: None Mental Status: Positive for: Alert and Oriented X 3 - Systems Exam Head: Present: Other (superficial abrasions on nose and forehead. ) Pupils: Present: PERRL Extroacular Muscles: Present: EOMI Mouth: Present: Moist Mucous Membranes Nose (Internal): No: Epistaxis Neck: Present: Normal Range of Motion. No: MIDLINE TENDERNESS Respiratory/Chest: Present: Clear to Auscultation, Tender to Palpation ( reproducible pain with palpation over the left lateral ribs inferior to and lateral to the nipple. no crepitus or ecchymosis.). No: Respiratory Distress, Accessory Muscle Use Cardiovascular: Present: Regular Rate and Rhythm Abdomen: Present: Normal Bowel Sounds. No: Tenderness, Distention, Peritoneal Signs Back: No: Midline Tenderness Upper Extremity: Present: NORMAL PULSES. No: Deformity Lower Extremity: Present: NORMAL PULSES. No: Deformity Neurological: Present: GCS=15, Motor Func Grossly Intact, Normal Sensory Function Skin: Present: Warm, Dry Psychiatric: Present: Alert, Oriented x 3 Medical Decision Making ED Course and Treatment: 03/04/17 17:20 the pt is a&ox3 and ambulatory with steady gait. ecg- nsr 88, nl axis, no acute ischemia - Medication Orders Current Medication Orders: Discontinued Medications Ibuprofen (Motrin Tab) 600 mg PO STAT STA Stop: 03/04/17 16:40 Last Admin: 03/04/17 16:50 Dose: 600 mg MAR Pain/Vitals Document 03/04/17 16:50 SE (Rec: 03/04/17 16:50 SE [id number]) Pain Reassessment Is This A Pain ReAssessment? No Sleep Is patient sleeping during reassessment? No Presence of Pain Presence of Pain Yes Pain Scale Used Pain Scale Used Numeric Disposition/Present on Arrival - Present on Arrival Any Indicators Present on Arrival: No History of DVT/PE: No History of Uncontrolled Diabetes: No Urinary Catheter: No History of Decub. Ulcer: No History Surgical Site Infection Following: None - Disposition Have Diagnosis and Disposition been Completed?: Yes Diagnosis: Alcohol abuse, Chest wall contusion Disposition: HOME/ ROUTINE Disposition Time: 17:16 Condition: STABLE Referrals: Alcoholics Anonymous [Outside] - [place] up with [place] [facility] [place] - Follow up with primary [facility], [Primary Care Provider] - Follow up with primary Forms: [employer] (Iranian)
[2017-03-04 17:18] VITALS: BP 119/78; PULSE 90; RESP 14; TEMP 97.7; O2SAT 95
--- NOTE | 2017-03-05 00:51 | CARD ---
APPROVED REPORT EKG Measurement Heart [id number] ME [id number] <Conclusion> Normal sinus rhythm Possible Anterior infarct, age undetermined Abnormal ECG
== END 2017-03-04 17:21 | disposition home or self-care (01) ==
LOC: ED 16:15
DX: F10.10 Alcohol abuse, uncomplicated (principal); S20.219A Contusion of unspecified front wall of thorax, initial encounter; W19.XXXA Unspecified fall, initial encounter; I10 Essential (primary) hypertension; J44.9 Chronic obstructive pulmonary disease, unspecified; Z87.891 Personal history of nicotine dependence

== ENCOUNTER 2017-03-04 20:42 | Emergency (ER) | payer MEDICAID ==
[2017-03-04 20:54] VITALS: BMI 22.9
[2017-03-04 20:58] VITALS: BP 138/74; RESP 18; TEMP 98.2; O2SAT 99
[2017-03-05 05:03] VITALS: PULSE 18
== END 2017-03-05 06:23 | disposition left against medical advice (07) ==
LOC: ED 20:42
DX: Z02.89 Encounter for other administrative examinations (principal); Z00.00 Encounter for general adult medical examination without abnormal findings

== ENCOUNTER 2017-03-06 08:17 | Emergency (ER) | payer MEDICAID ==
[2017-03-06 08:28] VITALS: BP 152/71; PULSE 85; RESP 19; TEMP 97.8; O2SAT 99; BMI 30.7
--- NOTE | 2017-03-06 09:24 | ED PDOC ---
Arrival/HPI - General Chief Complaint: Trauma Time Seen by Provider: 03/06/17 09:07 Historian: Patient - History of Present Illness Narrative History of Present Illness (Text): 03/06/17 09:10 A 56 year old homeless male, whose past medical history includes anemia, hypertension, COPD, pancreatitis, alcohol abuse, and hypokalemia, presents to the emergency department for left sided rib pain. Some pain when he takes a deep breathe. The patient states his symptoms began 6 days ago, but have not improved. He admits to being seen multiple times and denies any complete improvement. He has not tried pain medications that are given to him on discharge. The patient denies fever, headaches, dysuria, or any other complaints at this time. Time/Duration: < week (x 6 days ) Symptom Onset: Sudden (fall) Symptom Course: Unchanged Activities at Onset: Significant (fall) Context: Walking, Slipped Past Medical History - Provider Review Nursing Documentation Reviewed: Yes - Past History Past History: No Previous - Infectious Disease Hx of Infectious Diseases: None - Tetanus Immunization Tetanus Immunization: Unknown - Cardiac Hx Cardiac Disorders: Yes Hx Hypertension: Yes - Pulmonary Hx Respiratory Disorders: Yes Hx Chronic Obstructive Pulmonary Disease (COPD): Yes - Neurological Hx Neurological Disorder: No - HEENT Hx HEENT Disorder: No - Renal Hx Renal Disorder: No - Endocrine/Metabolic Hx Endocrine Disorders: No - Hematological/Oncological Hx Blood Disorders: Yes Hx Anemia: Yes Hx Hepatitis C: No - Integumentary Hx Dermatological Disorder: No - Musculoskeletal/Rheumatological Hx Musculoskeletal Disorders: Yes Hx Back Pain: Yes Hx Falls: No - Gastrointestinal Hx Gastrointestinal Disorders: Yes Hx Gastroesophageal Reflux: Yes Hx Pancreatitis: Yes - Genitourinary/Gynecological Hx Genitourinary Disorders: No - Psychiatric Hx Psychophysiologic Disorder: Yes Hx Anxiety: Yes Hx Substance Use: Yes - Surgical History Other/Comment: orcchectomy, ventral and inguinal hernia repair - Anesthesia Hx Anesthesia: Yes Hx Anesthesia Reactions: No Hx Malignant Hyperthermia: No - Suicidal Assessment Feels Threatened In Home Enviroment: No Family/Social History - Physician Review Nursing Documentation Reviewed: Yes Family/Social History: No Known Family HX Smoking Status: Former Smoker Hx Alcohol Use: Yes Amount per day: 10 Hx Substance Use: Yes Hx Substance Use Treatment: No Allergies/Home Meds Allergies/Adverse Reactions: Allergies Penicillins Allergy (Mild, Verified 03/06/17 08:29) RASH Review of Systems - Physician Review All systems were reviewed & negative as marked: Yes - Review of Systems Constitutional: absent: Fevers Respiratory: Other (pain to ribs when taking a deep breathe). absent: SOB Genitourinary Male: absent: Dysuria Musculoskeletal: Other (left sided rib pain ) Neurological: absent: Headache Physical Exam Vital Signs Reviewed: Yes Vital Signs Temp Pulse Resp BP Pulse Ox 03/06/17 08:27 97.8 F 85 19 152/71 H 99 Temperature: Afebrile Blood Pressure: Normal Pulse: Regular Respiratory Rate: Normal Appearance: Positive for: Well-Appearing, Non-Toxic, Comfortable Pain Distress: None Mental Status: Positive for: Alert and Oriented X 3 - Systems Exam Head: Present: Atraumatic, Normocephalic Pupils: Present: PERRL Extroacular Muscles: Present: EOMI Conjunctiva: Present: Normal Mouth: Present: Moist Mucous Membranes Neck: Present: Normal Range of Motion Respiratory/Chest: Present: Clear to Auscultation, Good Air Exchange, Tender to Palpation (tenderness to left side rib cage). No: Respiratory Distress, Accessory Muscle Use Cardiovascular: Present: Regular Rate and Rhythm, Normal S1, S2. No: Murmurs Abdomen: Present: Normal Bowel Sounds. No: Tenderness, Distention, Peritoneal Signs Back: Present: Normal Inspection Upper Extremity: Present: Normal Inspection. No: Cyanosis, Edema Lower Extremity: Present: Normal Inspection. No: Edema Neurological: Present: GCS=15, CN II-XII Intact, Speech Normal Skin: Present: Warm, Dry, Normal Color. No: Rashes Psychiatric: Present: Alert, Oriented x 3, Normal Insight, Normal Concentration Medical Decision Making ED Course and Treatment: 03/06/17 09:24 Impression: A 56 year old male with left sided rib cage pain. Differential Diagnosis included but are not limited to: Left rib pain r/o fracture vs contusion Plan: -- Radiology: Left ribs & pa chest -- Toradol -- Reassess and disposition Prior Visits: Notes and results from previous visits were reviewed. Patient was last seen in the emergency department on Progress Notes: 03/06/17 12:16 Upon reevaluation, the patient states he is feel better and is ready to be discharged. The patient is advised to take Motrin with food. He is also recommended for alcohol detox and to follow up with out patient specialist. - RAD Interpretation Radiology Orders: 03/06/17 09:16 RIBS LEFT & PA CHEST [RAD] Stat - Medication Orders Current Medication Orders: Discontinued Medications Ketorolac Tromethamine (Toradol) 30 mg IM STAT STA Stop: 03/06/17 09:17 Last Admin: 03/06/17 11:36 Dose: 30 mg MAR Pain Assessment Document 03/06/17 11:36 (Rec: 03/06/17 11:37 MR [id number]) Pain Reassessment Is this a pain reassessment? No Sleep Is patient sleeping during reassessment? No Presence of Pain Presence of Pain Yes Pain Scale Used Pain Scale Used Numeric Location Left, Right or Bilateral Left Pain Location Body Site Back Description Description Constant Intensity of Pain at present 10 Aggravating Factors Changing Position Exercise/Activity Alleviating Factors/Management Medication Techniques IM Administration Charges Document 03/06/17 11:36 (Rec: 03/06/17 11:37 MR [id number]) Injection Site MAR Injection Site Left Deltoid Charges for Administration # of IM Administrations 1 - Scribe Statement The provider has reviewed the documentation as recorded by the Rahibalvarez Jones Provider Scribe Attestation: All medical record entries made by the Scribe were at my direction and personally dictated by me. I have reviewed the chart and agree that the record accurately reflects my personal performance of the history, physical exam, medical decision making, and the department course for this patient. I have also personally directed, reviewed, and agree with the discharge instructions and disposition. Disposition/Present on Arrival - Present on Arrival Any Indicators Present on Arrival: No History of DVT/PE: No History of Uncontrolled Diabetes: No Urinary Catheter: No History of Decub. Ulcer: No History Surgical Site Infection Following: None - Disposition Have Diagnosis and Disposition been Completed?: Yes Diagnosis: Rib pain on left side Disposition: HOME/ ROUTINE Disposition Time: 13:34 Patient Plan: Discharge Condition: IMPROVED Discharge Instructions (ExitCare): Chest Pain (ED) Additional Instructions: Mr Royal, thank you for letting us take care of you today. Your provider was Dr. Abbott. You were treated for Left rib pain. The emergency medical care you received today was directed at your acute symptoms. If you were prescribed any medication, please fill it and take as directed. It may take several days for your symptoms to resolve. Return to the Emergency Department if your symptoms worsen, do not improve, or if you have any other problems. Please contact your doctor or call one of the physicians/clinics you have been referred to that are listed on the Patient Visit Information form that is included in your discharge packet. Bring any paperwork you were given at discharge with you along with any medications you are taking to your follow up visit. Our treatment cannot replace ongoing medical care by a primary care provider (PCP) outside of the emergency department. Thank you for allowing the [facility] team to be part of your care today. If you had an X-Ray or CT scan: A Radiologist will review the ED reading if any change in treatment is needed we will contact you. If you had a blood, urine, or wound culture: It will take several days for the results, if any change in treatment is needed we will contact you. If you had an STI test: It will take 48 hours for the results. Please call after 1 week if you have not heard back. Prescriptions: Ibuprofen [Motrin] 600 mg PO Q6 PRN #30 tab PRN Reason: Pain, Moderate (4-7) Referrals: Tommie Alexander MD [Primary Care Provider] - Follow up with primary Forms: [employer] (Kenyan)
--- NOTE | 2017-03-06 11:52 | RAD ---
PROCEDURE: Radiographs of the Chest and Left Ribs. HISTORY: pain r/o fx COMPARISON: None available. TECHNIQUE: Frontal radiograph of the chest and multiple oblique radiographs of the left ribs were obtained. FINDINGS: LEFT RIBS: No fracture or focal lesion visualized. LUNGS: Clear. PLEURA: No pneumothorax or pleural fluid. CARDIOVASCULAR: Normal sized heart. No pulmonary vascular congestion. OTHER FINDINGS: None. IMPRESSION: Unremarkable radiographs of the chest and left ribs. No left rib fracture.
== END 2017-03-06 12:20 | disposition home or self-care (01) ==
LOC: ED 08:17
DX: R07.9 Chest pain, unspecified (principal); I10 Essential (primary) hypertension; Z87.891 Personal history of nicotine dependence
CPT/HCPCS: 71101; 96372; 99284; J1885

== ENCOUNTER 2017-03-08 09:16 | Emergency (ER) | payer MEDICAID ==
[2017-03-08 09:17] VITALS: BMI 30.7
[2017-03-08 09:28] VITALS: TEMP 98.4
--- NOTE | 2017-03-08 10:27 | ED PDOC ---
Arrival/HPI - General Historian: Patient <Jeannette Smith A - Last Filed: 03/08/17 19:22> <Marco Nagel - Last Filed: 03/09/17 18:39> - General Chief Complaint: Rib Injury Time Seen by Provider: 03/08/17 09:46 - History of Present Illness Narrative History of Present Illness (Text): 03/08/17 10:15 56yo male well known to ED for alcoholic intoxication bib for left ribs pain. Notes that pain started after a fall a week ago. Pain is with deep inspiration. Denies SOB, diaphoresis, chest pain, any other complaint. (Jeannette Smith A) Past Medical History - Provider Review Nursing Documentation Reviewed: Yes - Past History Past History: No Previous - Infectious Disease Hx of Infectious Diseases: None - Tetanus Immunization Tetanus Immunization: Unknown - Cardiac Hx Cardiac Disorders: Yes Hx Hypertension: Yes - Pulmonary Hx Respiratory Disorders: Yes Hx Chronic Obstructive Pulmonary Disease (COPD): Yes - Neurological Hx Neurological Disorder: No - HEENT Hx HEENT Disorder: No - Renal Hx Renal Disorder: No - Endocrine/Metabolic Hx Endocrine Disorders: No - Hematological/Oncological Hx Blood Disorders: Yes Hx Anemia: Yes Hx Hepatitis C: No - Integumentary Hx Dermatological Disorder: No - Musculoskeletal/Rheumatological Hx Musculoskeletal Disorders: Yes Hx Back Pain: Yes Hx Falls: No - Gastrointestinal Hx Gastrointestinal Disorders: Yes Hx Gastritis: Yes Hx Gastroesophageal Reflux: Yes Hx Pancreatitis: Yes - Genitourinary/Gynecological Hx Genitourinary Disorders: No - Psychiatric Hx Psychophysiologic Disorder: Yes Hx Anxiety: Yes Hx Substance Use: Yes - Surgical History Other/Comment: orcchectomy, ventral and inguinal hernia repair - Anesthesia Hx Anesthesia: Yes Hx Anesthesia Reactions: No Hx Malignant Hyperthermia: No - Suicidal Assessment Feels Threatened In Home Enviroment: No <LuisHappiness A - Last Filed: 03/08/17 19:22> Family/Social History - Physician Review Nursing Documentation Reviewed: Yes Family/Social History: Unknown Family HX Smoking Status: Former Smoker Hx Alcohol Use: Yes Frequency of alcohol use: Daily Amount per day: 10 Hx Substance Use: Yes Hx Substance Use Treatment: No <LuisHappiness A - Last Filed: 03/08/17 19:22> Allergies/Home Meds <LuisHappiness A - Last Filed: 03/08/17 19:22> <Marco Nagel - Last Filed: 03/09/17 18:39> Allergies/Adverse Reactions: Allergies Penicillins Allergy (Mild, Verified 03/08/17 09:51) RASH Review of Systems - Physician Review All systems were reviewed & negative as marked: Yes - Review of Systems Constitutional: Normal Eyes: Normal ENT: Normal Respiratory: Normal Cardiovascular: Normal Gastrointestinal: Normal Genitourinary Male: Normal Musculoskeletal: Arthralgias (LEft ribs) Skin: Normal Neurological: Normal Endocrine: Normal Hemo/Lymphatic: Normal Psychiatric: Normal <Diru,Happiness A - Last Filed: 03/08/17 19:22> Physical Exam Vital Signs Reviewed: Yes Temperature: Afebrile Blood Pressure: Normal Pulse: Regular Respiratory Rate: Normal Appearance: Positive for: Well-Appearing, Non-Toxic, Comfortable Pain Distress: None Mental Status: Positive for: Alert and Oriented X 3 - Systems Exam Head: Present: Atraumatic, Normocephalic Pupils: Present: PERRL Extroacular Muscles: Present: EOMI Conjunctiva: Present: Normal Mouth: Present: Moist Mucous Membranes Neck: Present: Normal Range of Motion Respiratory/Chest: Present: Clear to Auscultation, Good Air Exchange, Tender to Palpation (Anterior left sided ribs/sternal angle). No: Respiratory Distress, Accessory Muscle Use, Wheezes, Decreased Breath Sounds, Rales, Retracting, Rhonchi Cardiovascular: Present: Regular Rate and Rhythm, Normal S1, S2. No: Murmurs Abdomen: Present: Normal Bowel Sounds. No: Tenderness, Distention, Peritoneal Signs Back: Present: Normal Inspection Upper Extremity: Present: Normal Inspection. No: Cyanosis, Edema Lower Extremity: Present: Normal Inspection. No: Edema Neurological: Present: GCS=15, CN II-XII Intact, Speech Normal Skin: Present: Warm, Dry, Normal Color. No: Rashes Psychiatric: Present: Alert, Oriented x 3, Normal Insight, Normal Concentration <Diru,Happiness A - Last Filed: 03/08/17 19:22> Vital Signs Temp Pulse Resp BP Pulse Ox 03/08/17 11:07 97 H 19 143/82 99 03/08/17 09:23 98.4 F 105 H 18 113/79 97 Medical Decision Making <Diru,Happiness A - Last Filed: 03/08/17 19:22> <Marco Nagel - Last Filed: 03/09/17 18:39> ED Course and Treatment: 03/08/17 19:22 Left ribs/chest - No fracture. No PTX noted PT was treated with pain medication in ED for MS pain and DC home with Tramadol. Referred to his PMD. TRT ED for any new or worsening symptoms. (Jeannette Smith A) - RAD Interpretation Radiology Orders: 03/08/17 09:52 RIBS LEFT & PA CHEST [RAD] Stat - Medication Orders Current Medication Orders: Discontinued Medications Tramadol HCl (Ultram) 50 mg PO STAT STA Stop: 03/08/17 09:54 Last Admin: 03/08/17 10:20 Dose: 50 mg MAR Pain Assessment Document 03/08/17 10:20 RD (Rec: 03/08/17 10:58 RD [id number]) Pain Reassessment Is this a pain reassessment? No Sleep Is patient sleeping during reassessment? 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 <Marco Nagel - Last Filed: 03/09/17 18:39> Disposition/Present on Arrival - Present on Arrival Any Indicators Present on Arrival: No History of DVT/PE: No History of Uncontrolled Diabetes: No Urinary Catheter: No History of Decub. Ulcer: No History Surgical Site Infection Following: None - Disposition Have Diagnosis and Disposition been Completed?: Yes Disposition Time: 10:55 Patient Plan: Discharge <Jeannette Smith - Last Filed: 03/08/17 19:22> <Marco Nagel - Last Filed: 03/09/17 18:39> - Disposition Diagnosis: Rib pain Disposition: HOME/ ROUTINE Condition: STABLE Discharge Instructions (ExitCare): Chest Pain (ED) Additional Instructions: Follow up with your doctor/clinic Return to ED for any new symptoms Prescriptions: traMADol [Ultram] 50 mg PO TID #12 tab Referrals: Tommie Alexander MD [Primary Care Provider] - Follow up with primary Forms: [employer] (Thai)
--- NOTE | 2017-03-08 10:52 | RAD ---
PROCEDURE: Radiographs of the Chest and Left Ribs. HISTORY: rib pain s/p trauma COMPARISON: None available. TECHNIQUE: Frontal radiograph of the chest and multiple oblique radiographs of the left ribs were obtained. FINDINGS: LEFT RIBS: No fracture or focal lesion visualized. LUNGS: Clear. PLEURA: No pneumothorax or pleural fluid. CARDIOVASCULAR: Normal sized heart. No pulmonary vascular congestion. OTHER FINDINGS: None. IMPRESSION: Unremarkable radiographs of the chest and left ribs. No left rib fracture.
[2017-03-08 11:08] VITALS: BP 143/82; PULSE 97; RESP 19; O2SAT 99
== END 2017-03-08 11:07 | disposition home or self-care (01) ==
LOC: ED 09:16
DX: R07.81 Pleurodynia (principal); I10 Essential (primary) hypertension; Z87.891 Personal history of nicotine dependence

== ENCOUNTER 2017-03-14 18:06 | Emergency (ER) | payer MEDICAID ==
[2017-03-14 18:06] VITALS: BMI 30.7
--- NOTE | 2017-03-14 18:36 | ED PDOC ---
Arrival/HPI - General Historian: Patient - History of Present Illness Time/Duration: 24 hours Symptom Course: Unchanged Quality: Aching Activities at Onset: Light Context: Street - General Chief Complaint: Cough, Cold, Congestion Time Seen by Provider: 03/14/17 18:13 - History of Present Illness Narrative History of Present Illness (Text): 03/14/17 18:36 Travis Royal is a 56 year old homeless male, whose past medical history includes COPD, alcohol abuse, homelessness, presents to the ED stating he has left sided chest pain for several weeks. States that chest pain occurred when he fell on his chest several weeks ago, is "better today" but "still hurts". Reports cough. Denies shortness of breath. Reports some epigastric abdominal pain with nausea. Denies hematemesis. Denies bloody urine or stool. (Eric Barry) Past Medical History - Provider Review Nursing Documentation Reviewed: Yes - Past History Past History: No Previous - Infectious Disease Hx of Infectious Diseases: None - Tetanus Immunization Tetanus Immunization: Unknown - Cardiac Hx Cardiac Disorders: Yes Hx Hypertension: Yes - Pulmonary Hx Respiratory Disorders: Yes Hx Chronic Obstructive Pulmonary Disease (COPD): Yes - Neurological Hx Neurological Disorder: No - HEENT Hx HEENT Disorder: No - Renal Hx Renal Disorder: No - Endocrine/Metabolic Hx Endocrine Disorders: No - Hematological/Oncological Hx Blood Disorders: Yes Hx Anemia: Yes Hx Hepatitis C: No - Integumentary Hx Dermatological Disorder: No - Musculoskeletal/Rheumatological Hx Musculoskeletal Disorders: Yes Hx Back Pain: Yes Hx Falls: No - Gastrointestinal Hx Gastrointestinal Disorders: Yes Hx Gastritis: Yes Hx Gastroesophageal Reflux: Yes Hx Pancreatitis: Yes - Genitourinary/Gynecological Hx Genitourinary Disorders: No - Psychiatric Hx Psychophysiologic Disorder: Yes Hx Anxiety: Yes Hx Substance Use: Yes - Surgical History Other/Comment: orcchectomy, ventral and inguinal hernia repair - Anesthesia Hx Anesthesia: Yes Hx Anesthesia Reactions: No Hx Malignant Hyperthermia: No - Suicidal Assessment Feels Threatened In Home Enviroment: No Family/Social History - Physician Review Nursing Documentation Reviewed: Yes Family/Social History: Unknown Family HX Smoking Status: Former Smoker Hx Alcohol Use: Yes Amount per day: 10 Hx Substance Use: Yes Hx Substance Use Treatment: No Allergies/Home Meds Allergies/Adverse Reactions: Allergies Penicillins Allergy (Mild, Verified 03/08/17 09:51) RASH Home Medications: Home Meds Medication Instructions Recorded Confirmed No Known Home Med 03/14/17 03/14/17 Review of Systems - Review of Systems Constitutional: Fatigue. absent: Fevers Eyes: absent: Vision Changes ENT: absent: Hearing Changes Respiratory: Cough. absent: SOB, Wheezing Cardiovascular: Chest Pain. absent: CRESPO Gastrointestinal: Abdominal Pain, Nausea. absent: Hematochezia, Hematemesis Genitourinary Male: absent: Dysuria, Frequency, Hematuria Musculoskeletal: absent: Back Pain Skin: absent: Rash Neurological: absent: Headache, Dizziness, Focal Weakness Hemo/Lymphatic: absent: Easy Bleeding Psychiatric: absent: Depression, Suicidal Ideation Physical Exam Vital Signs Reviewed: Yes Temperature: Afebrile Mental Status: Positive for: Alert and Oriented X 3 - Systems Exam Head: Present: Atraumatic Pupils: Present: PERRL Extroacular Muscles: Present: EOMI Mouth: Present: Moist Mucous Membranes Pharnyx: No: ERYTHEMA Nose (Internal): Present: Normal Inspection Neck: Present: Normal Range of Motion. No: Meningeal Signs Respiratory/Chest: Present: Tender to Palpation (left anterior chest wall, no crepitus) Cardiovascular: Present: Regular Rate and Rhythm Abdomen: Present: Tenderness (mild epigastric pain) Rectal: No: Rectal Tenderness, Gross Blood, Melena Back: No: CVA Tenderness Upper Extremity: No: Cyanosis, Edema Lower Extremity: No: Edema Neurological: Present: Motor Func Grossly Intact, Normal Sensory Function Skin: Present: Warm Psychiatric: Present: Alert, Normal Insight, Normal Concentration Vital Signs Temp Pulse Resp BP Pulse Ox 03/15/17 04:00 88 19 123/75 98 03/15/17 02:40 98.0 F 80 18 99 03/15/17 00:24 98.0 F 77 19 98 03/14/17 22:02 80 22 116/76 97 03/14/17 18:25 97.9 F 79 22 129/85 97 Medical Decision Making ED Course and Treatment: 03/14/17 23:03 Patient is a 56 yo male presents with left sided chest pain for several weeks. On exam, lungs clear, no hypoxia. Chest pain is palpable and worse with movements. I reviewed recent ER visit, rib series was taken at that time and unremarkable. CXR today with no pneumothorax or acute infiltrate noted. Patient states he has been drinking since this morning. He has some slurred speech but is alert and oriented. ETOH level elevated, will obtain serial exams in ED until clinically sober, reassess symptoms. Initial EKG unremarkable, initial troponin unremarkable. On re-exam he is not tremulous or tachycardic. I suspect chest pain for current presentation is musculoskeletal. There is likely component of gastritis. Nausea and vomiting improved after medication. 03/14/17 23:07 No rectal bleeding noted. Care endorsed to nighttime physician for re-evaluation pending sobriety. (Eric Barry) - Lab Interpretations Lab Results: 03/14/17 19:38 03/14/17 20:03 Lab Results 03/14/17 20:03: Alcohol, Quantitative 243 H 03/14/17 20:03: Sodium 141, Potassium 4.0, Chloride 96 L, Carbon Dioxide 29, Anion Gap 20, BUN 4 L, Creatinine 0.6 L, Est GFR ( Amer) > 60, Est GFR ( Non-Af Amer) > 60, Random Glucose 102, Calcium 9.3, Magnesium 1.6 L, Total Bilirubin 0.7, AST 55, ALT 35, Alkaline Phosphatase 150 H D, Lactate Dehydrogenase 734 H, Total Creatine Kinase 88, Troponin I 0.03 D, Total Protein 9.4 H, Albumin 4.6, Globulin 4.8, Albumin/Globulin Ratio 1.0 L, Amylase 120, Lipase 310 H 03/14/17 20:03: PT 13.8 H, INR 1.26 H, APTT 26.8 03/14/17 19:50: Urine Color Straw, Urine Appearance Clear, Urine pH 6.5, Ur Specific [place] <= 1.005, Urine Protein Negative, Urine Glucose (UA) Negative, Urine Ketones Negative, Urine Blood Negative, Urine Nitrate Negative, Urine Bilirubin Negative, Urine Urobilinogen 0.2, Ur Leukocyte Esterase Negative 03/14/17 19:38: WBC 5.9 D, RBC 5.36, Hgb 11.9 L D, Hct 38.8 L, MCV 72.4 L, MCH 22.2 L, MCHC 30.7 L, RDW 19.3 H, Plt Count 240, MPV 8.2, Gran % 65.0, Lymph % ( Auto) 25.5, [place] % (Auto) 7.8 H, Eos % (Auto) 1.2 L, Baso % (Auto) 0.5, Gran # 3.83, Lymph # 1.5, Maury # 0.5, Eos # 0.1, Baso # 0.03 - RAD Interpretation Radiology Orders: 03/14/17 18:53 CHEST PORTABLE [RAD] Stat - Medication Orders Current Medication Orders: Sodium Chloride (Sodium Chloride 0.9%) 1,000 mls @ 100 mls/hr IV .Q10H SOPHIA Last Admin: 03/14/17 20:28 Dose: 100 mls/hr eMAR Start Stop Document 03/14/17 20:28 [facility] (Rec: 03/14/17 20:[address] Intravenous Solution Start Date 03/14/17 Start Time 20:28 End Date 03/14/17 Discontinued Medications Chlordiazepoxide (Librium) 50 mg PO STAT STA PRN Reason: Protocol Stop: 03/15/17 05:37 Famotidine (Pepcid) 20 mg IVP STAT STA Stop: 03/14/17 18:56 Last Admin: 03/14/17 20:27 Dose: 20 mg IVP Administration Document 03/14/17 20:27 [facility] (Rec: 03/14/17 20:[address] Charges for Administration # of IVP Administrations 1 Ondansetron HCl (Zofran Inj) 4 mg IVP ONCE ONE Stop: 03/14/17 18:56 Last Admin: 03/14/17 20:27 Dose: 4 mg IVP Administration Document 03/14/17 20:27 [facility] (Rec: 03/14/17 20:[email or web address] Charges for Administration # of IVP Administrations 1 Tramadol HCl (Ultram) 50 mg PO STAT STA Stop: 03/14/17 22:29 Last Admin: 03/14/17 23:23 Dose: 50 mg MAR Pain Assessment Document 03/14/17 23:23 [facility] (Rec: 03/14/17 23:[email or web address] Pain Reassessment Is this a pain reassessment? No Sleep Is patient sleeping during reassessment? No Presence of Pain Presence of Pain Yes Pain Scale Used Pain Scale Used Numeric Location Pain Location Body Site Chest Description Description Constant Intensity of Pain at present 6 Pain Behavior Facial Grimacing Aggravating Factors Changing Position Alleviating Factors/Management Medication Techniques Alleviating Factors Medication Disposition/Present on Arrival - Present on Arrival Any Indicators Present on Arrival: No History of DVT/PE: No History of Uncontrolled Diabetes: No Urinary Catheter: No History of Decub. Ulcer: No History Surgical Site Infection Following: None - Disposition Have Diagnosis and Disposition been Completed?: Yes Disposition Time: 23:06 Patient Plan: Observation - Disposition Diagnosis: Alcohol abuse, Chest wall pain, Gastritis Disposition: HOME/ ROUTINE Patient Problems: Current Active Problems Problem Status Onset Alcohol abuse Chronic Chest wall pain Acute Gastritis Acute Condition: FAIR Discharge Instructions (ExitCare): Chest Pain (ED) Additional Instructions: You were treated in the ED today for left sided chest pain for several weeks associated with epigastric abdominal pain and nausea. Patient also present for alcohol intoxication otherwise without any vomiting/headache/dizziness/ difficulty breathing//numbness/tingling/loss of limb function/pain with urination. You were otherwise breathing easily, smiling, good strength/sensation , walking easily, clear lungs, no abdomen tenderness, no fever temp 98, stable heart rate 80, stable breathing rate 18, excellent oxygen level 99% room air, stable blood pressure 116/76 which we recommend repeat in 2-3 days primary care office to determine further treatment, you have blood tests no infection count 5.9, heart blood test 0.03, urine test normal, alcohol 243. Patient was sleeping comfortably, in no acute distress. On re-evaluation, patient is alert and oriented x3. observed more than 11 hours - sobriety and re-evaluation done in the ED with mild jitteriness and you didn't want to stay for detoxification and requested librium which was given and you were observed with improvement. Patient feels better. I have discussed the results and plan with the patient, who expresses understanding. Patient in agreement with plan to be discharged home. Patient is stable for discharge. Recommend follow-up primary care 2-3 days to review symptoms, referral to gastroenterology clinic for mild elevated liver test alkaline phosphatase without yellowing of skin and long standing lipase 310 to ensure no complications, referral to cardiology clinic. 4. If any worsening pain, fever, chills, nausea, vomiting, difficulty breathing, numbness , loss of limb function, pain with urination or any medical condition then return to the ED. Forms: [employer] (Bulgarian)
[2017-03-14] MEDS ORDERED: Sodium Chloride 0.9% 1,000 ML IV SCH (19:00)
[2017-03-14 19:47] LABS: BASO # 0.03 K/mm3 (0.0-2.0); BASO % 0.5 % (0.0-3.0); EOS # 0.1 (0.0-0.7); EOS % 1.2 % (1.5-5.0); GRAN # 3.83 (1.4-6.5); HEMATOCRIT 38.8 % (42.0-52.0); LYMPH # 1.5 (1.2-3.4); LYMPH % 25.5 % (22.0-35.0); MEAN CELL VOLUME 72.4 fl (80.0-105.0); MEAN CORPUSCULAR HEMOGLOBIN 22.2 pg (25.0-35.0); MEAN CORPUSCULAR HGB CONC 30.7 g/dl (31.0-37.0); MEAN PLATELET VOLUME 8.2 fl (7.0-11.0); MONO # 0.5 (0.1-0.6); MONO % 7.8 % (1.0-6.0); RED CELL DISTRIBUTION WIDTH 19.3 % (11.5-14.5); WHITE BLOOD COUNT 5.9 10^3/ul (4.5-11.0)
[2017-03-14 19:59] LABS: PH,URINE 6.5 (4.7-8.0); URINE BILIRUBIN NEGATIVE (NEGATIVE); URINE BLOOD NEGATIVE (NEGATIVE); URINE GLUCOSE (UA) NEGATIVE (NEGATIVE); URINE KETONE NEGATIVE (NEGATIVE); URINE LEUKOCYTE ESTERASE NEGATIVE Leu/uL (NEGATIVE); URINE PROTEIN NEGATIVE mg/dL (<30 mg/dL); URINE UROBILINOGEN 0.2 E.U./dL (<1 E.U./dL)
[2017-03-14 20:01] LABS: URINE APPEARANCE CLEAR (CLEAR); URINE COLOR STRAW (YELLOW)
[2017-03-14 20:22] LABS: INR 1.26 (0.93-1.08); PARTIAL THROMBOPLASTIN TIME 26.8 Seconds (25.1-36.5)
[2017-03-14 20:43] LABS: TROPONIN I 0.03 ng/mL
[2017-03-14 20:46] LABS: ALKALINE PHOSPHATASE 150 U/L (38-126); ALT/SGPT 35 U/L (7-56); AMYLASE 120 U/L (35-125); AST/SGOT 55 U/L (17-59); BILIRUBIN,TOTAL 0.7 mg/dL (0.2-1.3); BLOOD UREA NITROGEN 4 mg/dL (7-21); CALCIUM 9.3 mg/dL (8.4-10.5); CARBON DIOXIDE 29 mmol/L (21-33); CHLORIDE 96 mmol/L (98-107); GFR AFRICAN-AMERICAN > 60; GLUCOSE,RANDOM 102 mg/dL (70-110); LIPASE 310 U/L (23-300); MAGNESIUM 1.6 mg/dL (1.7-2.2); SODIUM 141 mmol/L (132-148); TOTAL PROTEIN 9.4 g/dL (5.8-8.3)
--- NOTE | 2017-03-15 04:18 | ED PDOC ---
Physical Exam Vital Signs Reviewed: Yes Vital Signs Temp Pulse Resp BP Pulse Ox 03/15/17 04:00 88 19 123/75 98 03/15/17 02:40 98.0 F 80 18 99 03/15/17 00:24 98.0 F 77 19 98 03/14/17 22:02 80 22 116/76 97 03/14/17 18:25 97.9 F 79 22 129/85 97 Temperature: Afebrile Blood Pressure: Normal Pulse: Regular Respiratory Rate: Normal Appearance: Positive for: Well-Appearing, Non-Toxic Pain Distress: None Mental Status: Positive for: Alert and Oriented X 3 Finger Stick Blood Glucose: 103 Medical Decision Making ED Course and Treatment: 03/14/17 23:10 Case endorsed to me by Dr. Barry. Pending sobriety and re-evaluation. 03/15/17 04:27 You were treated in the ED today for left sided chest pain for several weeks associated with epigastric abdominal pain and nausea. Patient also present for alcohol intoxication otherwise without any vomiting/headache/dizziness/ difficulty breathing//numbness/tingling/loss of limb function/pain with urination. You were otherwise breathing easily, smiling, good strength/sensation , walking easily, clear lungs, no abdomen tenderness, no fever temp 98, stable heart rate 80, stable breathing rate 18, excellent oxygen level 99% room air, stable blood pressure 116/76 which we recommend repeat in 2-3 days primary care office to determine further treatment, you have blood tests no infection count 5.9, heart blood test 0.03, urine test normal, alcohol 243. Patient was sleeping comfortably, in no acute distress. On re-evaluation, patient is alert and oriented x3. observed more than 11 hours - sobriety and re-evaluation done in the ED with mild jitteriness and you didn't want to stay for detoxification and requested librium which was given and you were observed with improvement. Patient feels better. I have discussed the results and plan with the patient, who expresses understanding. Patient in agreement with plan to be discharged home. Patient is stable for discharge. Recommend follow-up primary care 2-3 days to review symptoms, referral to gastroenterology clinic for mild elevated liver test alkaline phosphatase without yellowing of skin and long standing lipase 310 to ensure no complications, referral to cardiology clinic. 4. If any worsening pain, fever, chills, nausea, vomiting, difficulty breathing, numbness , loss of limb function, pain with urination or any medical condition then return to the ED. - Lab Interpretations Lab Results: 03/14/17 19:38 03/14/17 20:03 Lab Results 03/14/17 20:03: Alcohol, Quantitative 243 H 03/14/17 20:03: Sodium 141, Potassium 4.0, Chloride 96 L, Carbon Dioxide 29, Anion Gap 20, BUN 4 L, Creatinine 0.6 L, Est GFR ( Amer) > 60, Est GFR ( Non-Af Amer) > 60, Random Glucose 102, Calcium 9.3, Magnesium 1.6 L, Total Bilirubin 0.7, AST 55, ALT 35, Alkaline Phosphatase 150 H D, Lactate Dehydrogenase 734 H, Total Creatine Kinase 88, Troponin I 0.03 D, Total Protein 9.4 H, Albumin 4.6, Globulin 4.8, Albumin/Globulin Ratio 1.0 L, Amylase 120, Lipase 310 H 03/14/17 20:03: PT 13.8 H, INR 1.26 H, APTT 26.8 03/14/17 19:50: Urine Color Straw, Urine Appearance Clear, Urine pH 6.5, Ur Specific [place] <= 1.005, Urine Protein Negative, Urine Glucose (UA) Negative, Urine Ketones Negative, Urine Blood Negative, Urine Nitrate Negative, Urine Bilirubin Negative, Urine Urobilinogen 0.2, Ur Leukocyte Esterase Negative 03/14/17 19:38: WBC 5.9 D, RBC 5.36, Hgb 11.9 L D, Hct 38.8 L, MCV 72.4 L, MCH 22.2 L, MCHC 30.7 L, RDW 19.3 H, Plt Count 240, MPV 8.2, Gran % 65.0, Lymph % ( Auto) 25.5, [place] % (Auto) 7.8 H, Eos % (Auto) 1.2 L, Baso % (Auto) 0.5, Gran # 3.83, Lymph # 1.5, [place] # 0.5, Eos # 0.1, Baso # 0.03 - RAD Interpretation Radiology Orders: 03/14/17 18:53 CHEST PORTABLE [RAD] Stat - Medication Orders Current Medication Orders: Chlordiazepoxide (Librium) 50 mg PO STAT STA PRN Reason: Protocol Stop: 03/15/17 05:37 Sodium Chloride (Sodium Chloride 0.9%) 1,000 mls @ 100 mls/hr IV .Q10H SOPHIA Last Admin: 03/14/17 20:28 Dose: 100 mls/hr eMAR Start Stop Document 03/14/17 20:28 [email or web address] (Rec: 03/14/17 20:28 [place] [id number]) Intravenous Solution Start Date 03/14/17 Start Time 20:28 End Date 03/14/17 Discontinued Medications Famotidine (Pepcid) 20 mg IVP STAT STA Stop: 03/14/17 18:56 Last Admin: 03/14/17 20:27 Dose: 20 mg IVP Administration Document 03/14/17 20:27 [facility] (Rec: 03/14/17 20:27 [place] [id number]) Charges for Administration # of IVP Administrations 1 Ondansetron HCl (Zofran Inj) 4 mg IVP ONCE ONE Stop: 03/14/17 18:56 Last Admin: 03/14/17 20:27 Dose: 4 mg IVP Administration Document 03/14/17 20:27 [facility] (Rec: 03/14/17 20:[address] Charges for Administration # of IVP Administrations 1 Tramadol HCl (Ultram) 50 mg PO STAT STA Stop: 03/14/17 22:29 Last Admin: 03/14/17 23:23 Dose: 50 mg MAR Pain Assessment Document 03/14/17 23:23 [facility] (Rec: 03/14/17 23:23 [place] [id number]) Pain Reassessment Is this a pain reassessment? No Sleep Is patient sleeping during reassessment? No Presence of Pain Presence of Pain Yes Pain Scale Used Pain Scale Used Numeric Location Pain Location Body Site Chest Description Description Constant Intensity of Pain at present 6 Pain Behavior Facial Grimacing Aggravating Factors Changing Position Alleviating Factors/Management Medication Techniques Alleviating Factors Medication - Scribe Statement The provider has reviewed the documentation as recorded by the Scribe Divya Corbett Provider Scribe Attestation: All medical record entries made by the Scribe were at my direction and personally dictated by me. I have reviewed the chart and agree that the record accurately reflects my personal performance of the history, physical exam, medical decision making, and the department course for this patient. I have also personally directed, reviewed, and agree with the discharge instructions and disposition. Disposition/Present on Arrival - Present on Arrival Any Indicators Present on Arrival: No History of DVT/PE: No History of Uncontrolled Diabetes: No Urinary Catheter: No History of Decub. Ulcer: No History Surgical Site Infection Following: None - Disposition Have Diagnosis and Disposition been Completed?: Yes Diagnosis: Alcohol abuse, Chest wall pain, Gastritis Disposition: HOME/ ROUTINE Disposition Time: 05:43 Patient Plan: Discharge Patient Problems: Current Active Problems Problem Status Onset Alcohol abuse Chronic Chest wall pain Acute Gastritis Acute Condition: FAIR Discharge Instructions (ExitCare): Chest Pain (ED) Additional Instructions: You were treated in the ED today for left sided chest pain for several weeks associated with epigastric abdominal pain and nausea. Patient also present for alcohol intoxication otherwise without any vomiting/headache/dizziness/ difficulty breathing//numbness/tingling/loss of limb function/pain with urination. You were otherwise breathing easily, smiling, good strength/sensation , walking easily, clear lungs, no abdomen tenderness, no fever temp 98, stable heart rate 80, stable breathing rate 18, excellent oxygen level 99% room air, stable blood pressure 116/76 which we recommend repeat in 2-3 days primary care office to determine further treatment, you have blood tests no infection count 5.9, heart blood test 0.03, urine test normal, alcohol 243. Patient was sleeping comfortably, in no acute distress. On re-evaluation, patient is alert and oriented x3. observed more than 11 hours - sobriety and re-evaluation done in the ED with mild jitteriness and you didn't want to stay for detoxification and requested librium which was given and you were observed with improvement. Patient feels better. I have discussed the results and plan with the patient, who expresses understanding. Patient in agreement with plan to be discharged home. Patient is stable for discharge. Recommend follow-up primary care 2-3 days to review symptoms, referral to gastroenterology clinic for mild elevated liver test alkaline phosphatase without yellowing of skin and long standing lipase 310 to ensure no complications, referral to cardiology clinic. 4. If any worsening pain, fever, chills, nausea, vomiting, difficulty breathing, numbness , loss of limb function, pain with urination or any medical condition then return to the ED. Forms: [employer] (Spanish)
[2017-03-15 06:16] VITALS: BP 118/76; PULSE 84; RESP 18; TEMP 98.2; O2SAT 100
--- NOTE | 2017-03-15 09:34 | CARD ---
APPROVED REPORT EKG Measurement Heart [id number] <Conclusion> Normal sinus rhythm PRWP No change
--- NOTE | 2017-03-15 13:12 | RAD ---
HISTORY: Chest pain. Portable study 20:19. COMPARISON: 03/08/2017 FINDINGS: LUNGS: No active pulmonary disease. PLEURA: No significant pleural effusion identified, no pneumothorax apparent. CARDIOVASCULAR: Normal. OSSEOUS STRUCTURES: No significant abnormalities. VISUALIZED UPPER ABDOMEN: Normal. OTHER FINDINGS: None. IMPRESSION: No active disease. No significant interval change compared to the prior examination(s).
== END 2017-03-15 06:14 | disposition home or self-care (01) ==
LOC: ED 18:06
DX: F10.10 Alcohol abuse, uncomplicated (principal); K29.70 Gastritis, unspecified, without bleeding; R07.89 Other chest pain; I10 Essential (primary) hypertension; J44.9 Chronic obstructive pulmonary disease, unspecified; Z59.0 Homelessness
CPT/HCPCS: 71010; 80053; 80320; 81003; 82150; 82550; 83615; 83690; 83735; 84484; 85025; 85610; 85730; 93005; 96374; 96375; 99284; J2405; J7040

== ENCOUNTER 2017-03-16 13:14 | Inpatient (IN) | payer MEDICAID ==
[2017-03-16 13:16] VITALS: BMI 31.4
[2017-03-16] MEDS ORDERED: Folic Acid 1 MG, Thiamine 100 MG, Multivitamin (MVI) 10 ML in Dextrose 5% In Water 1,00... IV ONE (13:30)
[2017-03-16] MEDS ORDERED: Famotidine 20mg/50ml 20 MG/50 ML BAG IVPB STA (13:34)
--- NOTE | 2017-03-16 13:41 | ED PDOC ---
Arrival/HPI - General Chief Complaint: Shortness Of Breath Time Seen by Provider: 03/16/17 13:28 Historian: Patient - History of Present Illness Narrative History of Present Illness (Text): 03/16/17 13:20 Travis Royal is a 56 year old homeless male, whose past medical history includes COPD, alcohol abuse, who presents to the ED stating he has left sided chest pain since prior to arrival. Patient reports this morning he was d/c from the emergency department for the same complaint. He also notes the pain radiating to the right side causing shortness of breath and mucous sputum. Additionally, patient admits to having SI with plan (overdosing on pills) and HI (hurting his brother). He also states having auditory and visual hallucinations and feeling depressed. He admits to drinking 4 beers prior to arrival and after he was d/c this morning. Patient denies other complaints such abdominal pain, headache, neck pain, fever, dysuria, hematuria or other complaints. Patient also notes not eating in the past two days. Time/Duration: Prior to Arrival Symptom Onset: Sudden Symptom Course: Unchanged Quality: Stabbing Severity Level: 8 Context: Street Past Medical History - Provider Review Nursing Documentation Reviewed: Yes - Travel History Have you recently traveled outside [place] w/in the past 3 mons?: No - Past History Past History: No Previous - Infectious Disease Hx of Infectious Diseases: None - Tetanus Immunization Tetanus Immunization: Unknown - Cardiac Hx Cardiac Disorders: Yes Hx Hypertension: Yes - Pulmonary Hx Respiratory Disorders: Yes Hx Chronic Obstructive Pulmonary Disease (COPD): Yes - Neurological Hx Neurological Disorder: No - HEENT Hx HEENT Disorder: No - Renal Hx Renal Disorder: No - Endocrine/Metabolic Hx Endocrine Disorders: No - Hematological/Oncological Hx Blood Disorders: Yes Hx Anemia: Yes Hx Hepatitis C: No - Integumentary Hx Dermatological Disorder: No - Musculoskeletal/Rheumatological Hx Musculoskeletal Disorders: Yes Hx Back Pain: Yes Hx Falls: No - Gastrointestinal Hx Gastrointestinal Disorders: Yes Hx Gastritis: Yes Hx Gastroesophageal Reflux: Yes Hx Pancreatitis: Yes - Genitourinary/Gynecological Hx Genitourinary Disorders: No - Psychiatric Hx Psychophysiologic Disorder: Yes Hx Anxiety: Yes Hx Substance Use: Yes - Surgical History Other/Comment: orcchectomy, ventral and inguinal hernia repair - Anesthesia Hx Anesthesia: Yes Hx Anesthesia Reactions: No Hx Malignant Hyperthermia: No - Suicidal Assessment Feels Threatened In Home Enviroment: No Family/Social History - Physician Review Nursing Documentation Reviewed: Yes Family/Social History: Unknown Family HX Smoking Status: Former Smoker Hx Alcohol Use: Yes Amount per day: 10 Hx Substance Use: Yes Hx Substance Use Treatment: No Allergies/Home Meds Allergies/Adverse Reactions: Allergies Penicillins Allergy (Mild, Verified 03/08/17 09:51) RASH Home Medications: Home Meds Medication Instructions Recorded Confirmed No Known Home Med 03/14/17 03/16/17 Review of Systems - Review of Systems Constitutional: absent: Fevers Eyes: absent: Vision Changes Respiratory: SOB Cardiovascular: Chest Pain Gastrointestinal: absent: Abdominal Pain, Vomiting Genitourinary Male: absent: Dysuria, Frequency Musculoskeletal: absent: Back Pain Skin: absent: Rash Neurological: absent: Headache, Dizziness, Focal Weakness Psychiatric: Depression, Suicidal Ideation, Other (HI) Physical Exam Vital Signs Reviewed: Yes Vital Signs Temp Pulse Resp BP Pulse Ox 03/16/17 17:00 98.9 F 89 18 145/88 98 03/16/17 15:15 92 H 18 156/95 H 98 03/16/17 13:15 98.1 F 78 18 136/92 H 97 Temperature: Afebrile Blood Pressure: Hypertensive Pulse: Tachycardic Respiratory Rate: Normal Appearance: Positive for: Non-Toxic, Unkept, Other (uncomfortable, disheveled, alert/awake, GCS = 15, oriented x 2 (not to date/time), resting in bed; NAD; + etoh on breath) Pain Distress: None Mental Status: Positive for: other (+ intoxicated, mild flat affect) - Systems Exam Head: Present: Atraumatic, Normocephalic Pupils: Present: PERRL, Other (no nystagmus, no photophobia, sclera anicteric) Extroacular Muscles: Present: EOMI Conjunctiva: Present: Normal Ears: Present: Normal Mouth: Present: Dry, Other (poor dentitions, no drooling/stridor, no exudate/ lesions, no dysphonia) Pharnyx: Present: Normal Nose (External): Present: Atraumatic Neck: Present: Normal Range of Motion. No: MIDLINE TENDERNESS, Paraspinal Tenderness Respiratory/Chest: Present: Clear to Auscultation, Good Air Exchange, Other ( coarse breath sounds noted bibasiliar; no wheezing/rales/rhonchi). No: Respiratory Distress, Accessory Muscle Use Cardiovascular: Present: Regular Rate and Rhythm, Normal S1, S2. No: Murmurs Abdomen: Present: Normal Bowel Sounds, Other (well nourished male, no focal tenderness, no carter's sign, no mcburney's point tenderness, no masses/rebound/ guarding/rigidity). No: Tenderness, Distention, Peritoneal Signs Back: Present: Normal Inspection. No: CVA Tenderness Upper Extremity: Present: Normal Inspection, Normal ROM, NORMAL PULSES, Neurovascularly Intact, Capillary Refill < 2s. No: Cyanosis, Edema Lower Extremity: Present: Normal Inspection, NORMAL PULSES, Normal ROM, Neurovascularly Intact. No: Edema, Kimberly's Sign Neurological: Present: GCS=15, CN II-XII Intact Skin: Present: Warm, Dry, Other (cap refill ~ 1-2 sec, no ulcerations, no petechiae). No: Rashes Psychiatric: Present: Alert, Normal Insight, Normal Concentration, Other (flat affect) Medical Decision Making ED Course and Treatment: 03/16/17 Impression: 56 year old homeless male, well known in the emergency department complaining of chest pain causing shortness of breath. Patient has both suicidal ideation with plan (pill overdose) and HI (hurting his brother). I have considered all Differential Diagnosis regarding pt's chief medical complaints/clinical findings included but are not limited to: psychiatric instability r/o alcohol dependence vs. possible ETOH withdrawals DT vs. failure to thrive Plan: -- EKG -- Labs -- Chest X-ray -- Aspirin, Ativan, Vitamin B1, Pepcid, Zofran -- Urinalysis -- Reassess and disposition Progress Notes: 03/16/17 15:56 nursing staff had a difficulty accessing IV/blood work; i attempt to place a 20gague IV to pt's left EJ without success x 1 attempt; with a 24gauge IV, placed successfully to right dorsum aspect of the foot under sterile conditions ; pt tolerated the procedure well I also jennifer blood using a 18gauge 20cc syringe and successfully obtained blood to right groin/fem vein; pt tolerated the procedure well re-exam of the patient: + mild asterix is noted, pt states he is shaky, possible DT is noted 03/16/17 18:44 pt continues to have chest pain and continued epigastric pain as well intractable nausea/vomiting pt resting tremors are concerning for alcohol w/d will recommend pt for admission pt is made aware of his medical results agrees with admission track repair person hospitalists contacted, made aware, agrees with admission Re-evaluation Time: 15:25 Reassessment Condition: Improving,but remains with symptoms - Lab Interpretations Lab Results: 03/16/17 14:50 03/16/17 14:50 Lab Results 03/16/17 14:50: Alcohol, Quantitative 228 H 03/16/17 14:50: Salicylates < 1 L, Acetaminophen < 10.0 L 03/16/17 14:50: Urine Opiates Screen Negative, Urine Methadone Screen Negative, Ur Barbiturates Screen Negative, Ur Phencyclidine Scrn Negative, Ur Amphetamines Screen Negative, U Benzodiazepines Scrn Positive, U Oth Cocaine Metabols Negative, U Cannabinoids Screen Negative 03/16/17 14:50: Sodium 132, Potassium 3.4 L, Chloride 93 L, Carbon Dioxide 24, Anion Gap 18, BUN 7, Creatinine 0.7 L, Est GFR ( Amer) > 60, Est GFR (Non -Af Amer) > 60, Random Glucose 111 H, Calcium 8.6, Total Bilirubin 0.6, AST 31, ALT 30, Alkaline Phosphatase 136 H, Lactate Dehydrogenase 402, Total Creatine Kinase 62, Troponin I < 0.01 D, NT-Pro-B Natriuret Pep 63.7, Total Protein 7.7 , Albumin 4.0, Globulin 3.7, Albumin/Globulin Ratio 1.1 03/16/17 14:50: Urine Color Yellow, Urine Appearance Clear, Urine pH 6.0, Ur Specific [place] <= 1.005, Urine Protein Negative, Urine Glucose (UA) Negative, Urine Ketones Negative, Urine Blood Negative, Urine Nitrate Negative, Urine Bilirubin Negative, Urine Urobilinogen 0.2, Ur Leukocyte Esterase Negative 03/16/17 14:50: WBC 10.8 D, RBC 4.55, Hgb 9.9 L D, Hct 32.0 L, MCV 70.3 L, MCH 21.8 L, MCHC 30.9 L, RDW 17.8 H, Plt Count 199, MPV 8.6, Gran % 82.4 H, Lymph % (Auto) 8.5 L, [place] % (Auto) 8.8 H, Eos % (Auto) 0.1 L, Baso % (Auto) 0.2, Gran # 8.88 H, Lymph # 0.9 L, [place] # 1.0 H, Eos # 0.0, Baso # 0.02 03/16/17 13:51: POC Glucose (mg/dL) 130 H decr h/h; elevated ETOH level I have reviewed the lab results: Yes (elevated ETOH; mild anemia) Interpretation: Abnormal lab values - RAD Interpretation Narrative RAD Interpretations (Text): 03/16/17 13:55 Chest X-ray: Creator: Abhay Newman MD COMPARISON: 03/14/2017 FINDINGS: LUNGS: No active pulmonary disease. PLEURA: No significant pleural effusion identified, no pneumothorax apparent. CARDIOVASCULAR: No radiographic findings to suggest acute or significant cardiovascular disease. OSSEOUS STRUCTURES: No significant abnormalities. VISUALIZED UPPER ABDOMEN: Normal. OTHER FINDINGS: None. IMPRESSION: No active disease. No significant interval change compared to the prior examination(s). Radiology Orders: 03/16/17 13:30 CHEST PORTABLE [RAD] Stat HISTORY: Chest pain shortness of breath. Portable study 13:35. COMPARISON: 03/14/2017 FINDINGS: LUNGS: No active pulmonary disease. PLEURA: No significant pleural effusion identified, no pneumothorax apparent. CARDIOVASCULAR: No radiographic findings to suggest acute or significant cardiovascular disease. OSSEOUS STRUCTURES: No significant abnormalities. VISUALIZED UPPER ABDOMEN: Normal. OTHER FINDINGS: None. IMPRESSION: No active disease. No significant interval change compared to the prior examination(s). Auto Body Painter: Radiologist - EKG Interpretation EKG Interpretation (Text): 03/16/17 15:59 SR at 90 bpm, borderline 1st degree av block, normal axis, no ectopy, diffuse low voltage, qs in leads V1-2, no st changes, ABNL EKG; unchanged compare with old ekg 03/16/17 16:01 Interpreted by ED Physician: Yes Type: 12 lead EKG Comparison: Similar to previous EKG - Medication Orders Current Medication Orders: Albuterol/Ipratropium (Duoneb 3 Mg/0.5 Mg (3 Ml) Ud) 3 ml IH [id number] PRN PRN Reason: Shortness of Breath Albuterol/Ipratropium (Duoneb 3 Mg/0.5 Mg (3 Ml) Ud) 3 ml IH [id number] PRN PRN Reason: Wheezing Folic Acid 1 mg/ Thiamine HCl 100 mg/ Multivitamins/Vitamin C 10 ml/ Dextrose 1 ,011.2 mls @ 100 mls/hr IV ONCE ONE Stop: 03/16/17 23:36 Last Admin: 03/16/17 14:35 Dose: 100 mls/hr eMAR Start Stop Document 03/16/17 14:35 EW (Rec: 03/16/17 14:35 [id number] Intravenous Solution Start Date 03/16/17 Start Time 14:35 Multivitamins/Vitamin C 10 ml/Thiamine HCl 100 mg/ Folic Acid 1 mg/ Potassium Chloride 40 meq/ Dextrose 1,031.2 mls @ 100 mls/hr IV [id number] SOPHIA Stop: 03/17/17 17:16 Last Admin: 03/16/17 18:36 Dose: Magnesium Sulfate 2 gm/ Sodium (Chloride) 104 mls @ 102 mls/hr IVPB ONCE ONE Stop: 03/16/17 18:45 Lorazepam (Ativan) 2 mg IVP Q4 PRN; Protocol PRN Reason: Anxiety Lorazepam (Ativan) 1 mg IVP Q6 SOPHIA PRN Reason: Protocol Last Admin: 03/16/17 17:32 Dose: 1 mg IVP Administration Document 03/16/17 17:32 [facility] (Rec: 03/16/17 17:32 [id number] Charges for Administration # of IVP Administrations 3 Re-Assess: Reassess Psych Meds Document 03/16/17 18:02 (Rec: 03/16/17 18:35 [id number]) Reassess Psych Med Effective Ondansetron HCl (Zofran Inj) 4 mg IVP Q4H PRN PRN Reason: Nausea/Vomiting Pantoprazole Sodium (Protonix Inj) 40 mg IVP DAILY [facility] Last Admin: 03/16/17 17:32 Dose: 40 mg IVP Administration Document 03/16/17 17:32 EW (Rec: 03/16/17 17:32 [id number] Charges for Administration # of IVP Administrations 1 Thiamine HCl (Vitamin B1 Tab) 100 mg PO DAILY [facility] Discontinued Medications Albuterol/Ipratropium (Duoneb 3 Mg/0.5 Mg (3 Ml) Ud) 3 ml IH STAT STA Stop: 03/16/17 14:32 Last Admin: 03/16/17 14:35 Dose: 3 ml Aspirin (Aspirin Chewable) 81 mg PO STAT STA Stop: 03/16/17 13:34 Last Admin: 03/16/17 14:36 Dose: 81 mg Famotidine (Pepcid 20mg/50ml Premix) 20 mg in 50 mls @ 100 mls/hr IVPB STAT STA Stop: 03/16/17 14:03 Last Admin: 03/16/17 14:36 Dose: 100 mls/hr eMAR Start Stop Document 03/16/17 14:36 EWO (Rec: 03/16/17 14:36 [id number] Intravenous Solution Start Date 03/16/17 Start Time 14:36 End Date 03/16/17 End time 15:06 Total Infusion Time 30 Lorazepam (Ativan) 2 mg IVP STAT STA Stop: 03/16/17 13:31 Last Admin: 03/16/17 14:36 Dose: 2 mg IVP Administration Document 03/16/17 14:36 EWO (Rec: 03/16/17 14:36 [id number] Charges for Administration # of IVP Administrations 1 Lorazepam (Ativan) 2 mg IVP ONCE ONE PRN Reason: Protocol Stop: 03/16/17 15:03 Last Admin: 03/16/17 15:12 Dose: 2 mg IVP Administration Document 03/16/17 15:12 EWO (Rec: 03/16/17 15:12 [id number] Charges for Administration # of IVP Administrations 2 Ondansetron HCl (Zofran Inj) 4 mg IVP STAT STA Stop: 03/16/17 13:35 Last Admin: 03/16/17 14:35 Dose: 4 mg IVP Administration Document 03/16/17 14:35 EWO (Rec: 03/16/17 14:36 [id number] Charges for Administration # of IVP Administrations 1 Potassium Chloride (K-Dur 20 Meq Er Tab) 40 meq PO STAT STA Stop: 03/16/17 17:46 - Scribe Statement The provider has reviewed the documentation as recorded by the Mary Junior Provider Scribe Attestation: All medical record entries made by the Mary were at my direction and personally dictated by me. I have reviewed the chart and agree that the record accurately reflects my personal performance of the history, physical exam, medical decision making, and the department course for this patient. I have also personally directed, reviewed, and agree with the discharge instructions and disposition. Disposition/Present on Arrival - Present on Arrival Any Indicators Present on Arrival: No History of DVT/PE: No History of Uncontrolled Diabetes: No Urinary Catheter: No History of Decub. Ulcer: No History Surgical Site Infection Following: None - Disposition Have Diagnosis and Disposition been Completed?: Yes Diagnosis: Alcohol dependence, Alcohol withdrawal, Dehydration, Failure to thrive, Intractable nausea and vomiting Disposition: HOSPITALIZED Disposition Time: 15:30 Patient Plan: Admission Patient Problems: Current Active Problems Problem Status Onset Alcohol dependence Acute Alcohol withdrawal Acute Dehydration Acute Failure to thrive Acute Intractable nausea and vomiting Acute Condition: STABLE
--- NOTE | 2017-03-16 13:53 | RAD ---
HISTORY: Chest pain shortness of breath. Portable study 13:35. COMPARISON: 03/14/2017 FINDINGS: LUNGS: No active pulmonary disease. PLEURA: No significant pleural effusion identified, no pneumothorax apparent. CARDIOVASCULAR: No radiographic findings to suggest acute or significant cardiovascular disease. OSSEOUS STRUCTURES: No significant abnormalities. VISUALIZED UPPER ABDOMEN: Normal. OTHER FINDINGS: None. IMPRESSION: No active disease. No significant interval change compared to the prior examination(s).
[2017-03-16] MEDS ORDERED: Albuterol-Ipratrop 3 mg / 0.5 (3 ml) UD IH STA (14:31)
[2017-03-16 15:15] LABS: BASO # 0.02 K/mm3 (0.0-2.0); BASO % 0.2 % (0.0-3.0); EOS % 0.1 % (1.5-5.0); GRAN # 8.88 (1.4-6.5); GRAN % 82.4 % (50.0-68.0); LYMPH # 0.9 (1.2-3.4); LYMPH % 8.5 % (22.0-35.0); MEAN CELL VOLUME 70.3 fl (80.0-105.0); MEAN CORPUSCULAR HEMOGLOBIN 21.8 pg (25.0-35.0); MEAN CORPUSCULAR HGB CONC 30.9 g/dl (31.0-37.0); MEAN PLATELET VOLUME 8.6 fl (7.0-11.0); MONO % 8.8 % (1.0-6.0); RED CELL DISTRIBUTION WIDTH 17.8 % (11.5-14.5); WHITE BLOOD COUNT 10.8 10^3/ul (4.5-11.0)
[2017-03-16 15:17] LABS: URINE BILIRUBIN NEGATIVE (NEGATIVE); URINE BLOOD NEGATIVE (NEGATIVE); URINE GLUCOSE (UA) NEGATIVE (NEGATIVE); URINE KETONE NEGATIVE (NEGATIVE); URINE LEUKOCYTE ESTERASE NEGATIVE Leu/uL (NEGATIVE); URINE PROTEIN NEGATIVE mg/dL (<30 mg/dL); URINE UROBILINOGEN 0.2 E.U./dL (<1 E.U./dL)
[2017-03-16 15:21] LABS: ALB/GLOB RATIO 1.1 (1.1-1.8); ALKALINE PHOSPHATASE 136 U/L (38-126); ALT/SGPT 30 U/L (7-56); AST/SGOT 31 U/L (17-59); BILIRUBIN,TOTAL 0.6 mg/dL (0.2-1.3); BLOOD UREA NITROGEN 7 mg/dL (7-21); CALCIUM 8.6 mg/dL (8.4-10.5); CARBON DIOXIDE 24 mmol/L (21-33); CHLORIDE 93 mmol/L (98-107); GFR AFRICAN-AMERICAN > 60; GLUCOSE,RANDOM 111 mg/dL (70-110); POTASSIUM 3.4 mmol/L (3.6-5.0); SODIUM 132 mmol/L (132-148); TOTAL PROTEIN 7.7 g/dL (5.8-8.3)
[2017-03-16 15:24] LABS: URINE APPEARANCE CLEAR (CLEAR); URINE COLOR YELLOW (YELLOW)
[2017-03-16 15:25] LABS: TROPONIN I < 0.01 ng/mL
[2017-03-16] MEDS ORDERED: Multivitamin (MVI) 10 ML, Thiamine 100 MG, Folic Acid 1 MG, Potassium Chloride 40 MEQ i... IV ONE ×2 (16:58→17:06)
[2017-03-16] MEDS ORDERED: Albuterol-Ipratrop 3 mg / 0.5 (3 ml) UD IH PRN ×2 (17:16→17:30)
[2017-03-16] MEDS ORDERED: Magnesium Sulfate 2 GM in Sodium Chloride 0.9% 100 ML IVPB ONE (17:44)
[2017-03-16] MEDS ORDERED: Potassium Chloride 20 mEq ER Tab PO STA (17:45)
--- NOTE | 2017-03-16 17:47 | CP.PCM.HP ---
History of Present Illness - History of Present Illness History of Present Illness: Nori Stoll, PGY1, H&P for Dr Goel: CC: alcohol intoxication 56 year old homeless male, with PMH whose past medical history includes COPD, alcohol abuse, frequent admissions to [facility], presents to ED for alcohol intoxication. Patient was discharged from the ED for a chest pain complaint after all workup was negative. Patient states that after drinking multiple beers, he might have run into a wall and hurt his left side of chest. Since 12: 30 PM, patient has been having left sided chest pain. Also reports lightheadedness, diaphoresis, nausea, and mild SOB. Patient also describes having suicidal ideations (overdosing on pills) and homicidal ideations ( hurting his brother and his friend. He said that the holidays depress him more. He admits to drinking last night around midnight. Patient denies chills, cough, abdominal pain, headache, neck pain, fever, urinary complaints. In ED, pt afebrile with mild tachycardia, ETOH 228, given ASA 81 mg, ativan 2 mg IV x2, Xofran, Pepcid, folic acid. CXR shows no infiltrates. EKG shows HR 90 , possible 1st degree AV block, same as old ekg. hypokalemic 3.4, low Mg 1.6. 12 point ROS obtained and negative, except as per HPI. PMD: Dr. Painting PMH: erosive esophagitis, chromic pancreatitis, hepatitis C, COPD, and microcytic anemia PSH: R incarcerated inguinal hernia repair and R orchiectomy Meds: MV, thiamine and folic acid SHx: admits to daily ETOH use, denies tobacco or substance abuse; lives in his friend's basement FH: Dad Rectal cancer, Mother: Ovarian CA Present on Admission - Present on Admission Any Indicators Present on Admission: No History of DVT/PE: No History of Uncontrolled Diabetes: No Urinary Catheter: No Decubitus Ulcer Present: No Review of Systems - Review of Systems All systems: reviewed and no additional remarkable complaints except Review of Systems: as per hPI Past Patient History - Infectious Disease Hx of Infectious Diseases: None - Tetanus Immunizations Tetanus Immunization: Unknown - Past Medical History & Family History Past Medical History?: Yes - Past Social History Smoking Status: Former Smoker - CARDIAC Hx Cardiac Disorders: Yes Hx Hypertension: Yes - PULMONARY Hx Respiratory Disorders: Yes Hx Chronic Obstructive Pulmonary Disease (COPD): Yes - NEUROLOGICAL Hx Neurological Disorder: No - HEENT Hx HEENT Problems: No - RENAL Hx Chronic Kidney Disease: No - ENDOCRINE/METABOLIC Hx Endocrine Disorders: No - HEMATOLOGICAL/ONCOLOGICAL Hx Blood Disorders: Yes Hx Anemia: Yes Hx Hepatitis C: No - INTEGUMENTARY Hx Dermatological Problems: No - MUSCULOSKELETAL/RHEUMATOLOGICAL Hx Musculoskeletal Disorders: Yes Hx Back Pain: Yes Hx Falls: No - GASTROINTESTINAL Hx Gastrointestinal Disorders: Yes Hx Gastritis: Yes Hx Gastroesophageal Reflux: Yes Hx Pancreatitis: Yes - GENITOURINARY/GYNECOLOGICAL Hx Genitourinary Disorders: No - PSYCHIATRIC Hx Psychophysiologic Disorder: Yes Hx Anxiety: Yes Hx Substance Use: Yes - SURGICAL HISTORY Other/Comment: orcchectomy, ventral and inguinal hernia repair - ANESTHESIA Hx Anesthesia: Yes Hx Anesthesia Reactions: No Hx Malignant Hyperthermia: No Meds Allergies/Adverse Reactions: Allergies Allergy/AdvReac Type Severity Reaction Status Date / Time Penicillins Allergy Mild RASH Verified 03/08/17 09:51 Physical Exam - Constitutional Appears: Unkempt, Older Than Stated Age, Chronically Ill - Head Exam Head Exam: ATRAUMATIC, NORMOCEPHALIC - Eye Exam Eye Exam: EOMI, PERRL Pupil Exam: PERRL - ENT Exam ENT Exam: Mucous Membranes Dry - Neck Exam Neck exam: Positive for: Normal Inspection - Respiratory Exam Respiratory Exam: Chest Wall Tenderness, Wheezes (Mild wheezing b/l). absent: Accessory Muscle Use, Respiratory Distress - Cardiovascular Exam Cardiovascular Exam: Tachycardia, +S1, +S2. absent: Systolic Murmur - Extremities Exam Extremities exam: Negative for: calf tenderness, pedal edema - Back Exam Back exam: NORMAL INSPECTION - Neurological Exam Neurological exam: Alert, Oriented x3 Additional comments: Intoxicated - Psychiatric Exam Psychiatric exam: Homicidal Ideation, Suicidal Ideation - Skin Skin Exam: Dry, Normal Color, Warm Results - Vital Signs Recent Vital Signs: Last Vital Signs Temp 98.1 F 03/16/17 13:15 Pulse 92 H 03/16/17 15:15 Resp 18 03/16/17 15:15 BP 156/95 H 03/16/17 15:15 Pulse Ox 98 03/16/17 15:15 - Labs Result Diagrams: 03/16/17 14:50 03/16/17 14:50 Assessment & Plan - Assessment and Plan (Free Text) Assessment: 56 years old male with PMH COPD and ETOH abuse, presents for alcohol intoxication, left sided chest pain, nausea, vomiting, SI, HI: Chest pain, r/o ACS: - Likely musculoskeletal in origin - Reproducible cp on exam - Trop neg x1 - EKG: HR 90, possible 1st degree AV block (seen on prev EKG). No st changes - F/u serial trops - ASA 81 given. Alcohol intoxication/withdrawal: - ETOH level 228 - Given ativan 2 mg IVx2 in ED. - Ativan 2 mg IV q4h prn - CIWA protocol - Seizure/Aspiration precautions - Fall precautions Suicidal/homicidal ideations: - Patient states that he has a plan (overdose on pills). - Psych consulted. - 1:1 Obs Nausea/vomiting: - Lipase this AM 309. - Zofran prn - NPO - Cont to monitor Hypomagnesemia/hypokalemia: - repleted Case seen and discussed with Dr Goel. Nori Stoll, PGY1 - Date & Time Date: 03/16/17 Time: 18:03
[2017-03-16] MEDS: Multivitamin (MVI) 10 ML, Thiamine 100 MG, Folic Acid 1 MG, Potassium Chloride 40 MEQ i... IV SCH (18:36)
[2017-03-16 21:55] LABS: TROPONIN I < 0.01 ng/mL
[2017-03-17] MEDS: Multivitamin (MVI) 10 ML, Thiamine 100 MG, Folic Acid 1 MG, Potassium Chloride 40 MEQ i... IV SCH (05:00)
[2017-03-17 07:19] LABS: MEAN CORPUSCULAR HEMOGLOBIN 21.7 pg (25.0-35.0); MEAN CORPUSCULAR HGB CONC 30.6 g/dl (31.0-37.0); MEAN PLATELET VOLUME 8.8 fl (7.0-11.0); RED CELL DISTRIBUTION WIDTH 17.8 % (11.5-14.5); WHITE BLOOD COUNT 9.4 10^3/ul (4.5-11.0)
[2017-03-17 07:27] LABS: ALKALINE PHOSPHATASE 132 U/L (38-126); ALT/SGPT 29 U/L (7-56); AST/SGOT 30 U/L (17-59); BILIRUBIN,TOTAL 0.8 mg/dL (0.2-1.3); BLOOD UREA NITROGEN 7 mg/dL (7-21); CALCIUM 8.8 mg/dL (8.4-10.5); CARBON DIOXIDE 26 mmol/L (21-33); CHLORIDE 97 mmol/L (98-107); GFR AFRICAN-AMERICAN > 60; GLUCOSE,RANDOM 120 mg/dL (70-110); MAGNESIUM 1.9 mg/dL (1.7-2.2); POTASSIUM 4.1 mmol/L (3.6-5.0); SODIUM 134 mmol/L (132-148); TOTAL PROTEIN 7.2 g/dL (5.8-8.3)
[2017-03-17 07:29] LABS: TROPONIN I < 0.01 ng/mL
--- NOTE | 2017-03-17 08:15 | CP.PCM.PN ---
<Imani Roblero - Last Filed: 03/17/17 15:16> Subjective - Date & Time of Evaluation Date of Evaluation: 03/17/17 Time of Evaluation: 11:30 - Subjective Subjective: PGY2 Medicine note for Dr. Chung Patient seen and examined at bedside. Reports he continues to feel tremulous and admitted to suicidal and homicidal ideations. Patient reported he has a plan involving pills at home and he wants to hurt two men who have "done him wrong." He states that the chest pain and SOB that he was admitted for has improved even though he still feels uneasy. Patient was kept NPO overnight and is hungry. Denied acute complaints of headache, nausea, vomiting, pain/swelling in his legs bilaterally. Objective - Vital Signs/Intake and Output Vital Signs (last 24 hours): Temp Pulse Resp BP Pulse Ox 99.8 F H 110 H 18 110/69 94 L 03/17/17 00:00 03/17/17 06:00 03/17/17 00:00 03/17/17 00:00 03/17/17 00:00 Intake and Output: 03/17/17 03/17/17 06:59 18:59 Intake Total 1200 Output Total 1400 Balance -200 - Medications Medications: Current Medications Albuterol/Ipratropium (Duoneb 3 Mg/0.5 Mg (3 Ml) Ud) 3 ml IH [id number] PRN PRN Reason: Shortness of Breath Albuterol/Ipratropium (Duoneb 3 Mg/0.5 Mg (3 Ml) Ud) 3 ml IH [id number] PRN PRN Reason: Wheezing Enoxaparin Sodium (Lovenox) 30 mg SC DAILY NINA PRN Reason: Protocol Multivitamins/Vitamin C 10 ml/Thiamine HCl 100 mg/ Folic Acid 1 mg/ Potassium Chloride 40 meq/ Dextrose 1,031.2 mls @ 100 mls/hr IV .[id number] NINA Stop: 03/17/17 17:16 Last Admin: 03/17/17 05:00 Dose: 100 mls/hr Lorazepam (Ativan) 2 mg IVP Q4 PRN; Protocol PRN Reason: Anxiety Lorazepam (Ativan) 1 mg IVP Q6 NINA PRN Reason: Protocol Last Admin: 03/17/17 05:57 Dose: 1 mg Ondansetron HCl (Zofran Inj) 4 mg IVP Q4H PRN PRN Reason: Nausea/Vomiting Last Admin: 03/16/17 23:49 Dose: 4 mg Pantoprazole Sodium (Protonix Inj) 40 mg IVP DAILY NINA Last Admin: 03/16/17 17:32 Dose: 40 mg Thiamine HCl (Vitamin B1 Tab) 100 mg PO DAILY NINA - Labs Labs: 03/17/17 06:00 03/17/17 06:00 - Constitutional Appears: Unkempt, Chronically Ill - Head Exam Head Exam: NORMAL INSPECTION, NORMOCEPHALIC - Eye Exam Eye Exam: EOMI, Normal appearance. absent: Conjunctival injection, Scleral icterus - ENT Exam ENT Exam: Mucous Membranes Dry - Neck Exam Neck Exam: absent: Lymphadenopathy - Respiratory Exam Respiratory Exam: Clear to Ausculation Bilateral, NORMAL BREATHING PATTERN. absent: Accessory Muscle Use, Rales, Rhonchi, Wheezes, Respiratory Distress - Cardiovascular Exam Cardiovascular Exam: Tachycardia, REGULAR RHYTHM, +S1, +S2. absent: Murmur - GI/Abdominal Exam GI & Abdominal Exam: Soft, Normal Bowel Sounds. absent: Firm, Guarding, Rigid, Tenderness - Extremities Exam Extremities Exam: Normal Capillary Refill, Normal Inspection. absent: Pedal Edema - Back Exam Back Exam: NORMAL INSPECTION. absent: rash noted - Neurological Exam Neurological Exam: Alert, Awake, Oriented x3 - Psychiatric Exam Psychiatric exam: Depressed - Skin Skin Exam: Dry, Intact, Normal Color, Warm Assessment and Plan - Assessment and Plan (Free Text) Assessment: 56yo male PMHx COPD and ETOH abuse, presents for alcohol intoxication, left sided chest pain, nausea, vomiting, SI, HI Plan: Chest pain, r/o ACS: - Likely MSK - Reproducible chest pain on exam - Trop neg x 3 - EKG: HR 90, possible 1st degree AV block (seen on prev EKG). No st changes - ASA 81 given. Alcohol intoxication/withdrawal: - ETOH level 228 - Given ativan 2 mg IVx2 in ED. - Ativan 2 mg IV q4h prn - Librium 25 q6 nina - Zofran 4mg ivp q4 prn - Banana bag 1 L - Thiamine 100mg po qd - [facility] protocol - Seizure/Aspiration precautions - Fall precautions Suicidal/homicidal ideations: - Patient states that he has a plan (overdose on pills). - Psych consulted - Seroqule 50mg po hs - 1:1 Obs Hx of COPD - Duoneb 3ml inh q6 and q4 prn GI ppx: Protonix 40mg ivp qd DVT ppx: Lovenox 30mg sc qd Diet: HHD Discussed with Dr. Juliet Roblero PGY2 <Jessica Chung - Last Filed: 03/17/17 16:52> Objective - Vital Signs/Intake and Output Vital Signs (last 24 hours): Temp Pulse Resp BP Pulse Ox 97.6 F 88 17 111/69 97 03/17/17 08:29 03/17/17 14:00 03/17/17 08:29 03/17/17 08:29 03/17/17 08:29 Intake and Output: 03/17/17 03/17/17 06:59 18:59 Intake Total 1200 0 Output Total 1400 950 Balance -200 -950 - Medications Medications: Current Medications Albuterol/Ipratropium (Duoneb 3 Mg/0.5 Mg (3 Ml) Ud) 3 ml IH [id number] PRN PRN Reason: Shortness of Breath Albuterol/Ipratropium (Duoneb 3 Mg/0.5 Mg (3 Ml) Ud) 3 ml IH [id number] PRN PRN Reason: Wheezing Chlordiazepoxide (Librium) 25 mg PO Q6 NINA PRN Reason: Protocol Enoxaparin Sodium (Lovenox) 30 mg SC DAILY NINA PRN Reason: Protocol Last Admin: 03/17/17 10:17 Dose: 30 mg Multivitamins/Vitamin C 10 ml/Thiamine HCl 100 mg/ Folic Acid 1 mg/ Potassium Chloride 40 meq/ Dextrose 1,031.2 mls @ 100 mls/hr IV .[id number] NINA Stop: 03/17/17 17:16 Last Admin: 03/17/17 05:00 Dose: 100 mls/hr Lorazepam (Ativan) 2 mg IVP Q4 PRN; Protocol PRN Reason: Anxiety Ondansetron HCl (Zofran Inj) 4 mg IVP Q4H PRN PRN Reason: Nausea/Vomiting Last Admin: 03/17/17 16:32 Dose: 4 mg Pantoprazole Sodium (Protonix Inj) 40 mg IVP DAILY NINA Last Admin: 03/17/17 10:17 Dose: 40 mg Quetiapine Fumarate (Seroquel) 50 mg PO HS PRN; Protocol PRN Reason: hallucinations/agitation Thiamine HCl (Vitamin B1 Tab) 100 mg PO DAILY NINA Last Admin: 03/17/17 10:17 Dose: 100 mg - Labs Labs: 03/17/17 06:00 03/17/17 06:00 Attending/Attestation - Attestation I have personally seen and examined this patient.: Yes I have fully participated in the care of the patient.: Yes I have reviewed all pertinent clinical information, including history, physical exam and plan: Yes Notes (Text): I have seen and examined the patient at bedside. Agree with the above note with the following additions/ exceptions: Briefly this is 56 year old male with history of COPD, alcohol abuse, gastritis, erosive esophagitis, chronic pancreatitis, anemia who was admitted for alcohol intoxication. He also complained of chest pain upon admission however denies any pain today. EKG and serial trops negative. Also complains of cough with whitish sputum production. CXR ordered. BAL was 228. Start librium and continue banana bag. As patient expressed suicidal and homicidal ideation, will continue 1:1 and will consult psychiatrist. Continue protonix. He needs repeat endoscopy as an outpatient. Alcohol cessation counselling provided. Upon discharge patient will follow up with Dr Alexander. Dr Jessica Chung
--- NOTE | 2017-03-17 08:37 | CARD ---
APPROVED REPORT EKG Measurement Heart [id number] <Conclusion> Normal sinus rhythm Normal ECG No change
[2017-03-17] MEDS: Enoxaparin 30 mg Syringe SC SCH (10:17)
[2017-03-18 07:53] LABS: HEMATOCRIT 31.5 % (42.0-52.0); MEAN CELL VOLUME 71.4 fl (80.0-105.0); MEAN CORPUSCULAR HEMOGLOBIN 21.5 pg (25.0-35.0); MEAN CORPUSCULAR HGB CONC 30.2 g/dl (31.0-37.0); MEAN PLATELET VOLUME 8.9 fl (7.0-11.0); RED CELL DISTRIBUTION WIDTH 17.8 % (11.5-14.5); WHITE BLOOD COUNT 6.7 10^3/ul (4.5-11.0)
[2017-03-18 08:06] LABS: ALKALINE PHOSPHATASE 123 U/L (38-126); ALT/SGPT 26 U/L (7-56); AST/SGOT 32 U/L (17-59); BILIRUBIN,TOTAL 0.8 mg/dL (0.2-1.3); BLOOD UREA NITROGEN 8 mg/dL (7-21); CALCIUM 9.1 mg/dL (8.4-10.5); CARBON DIOXIDE 27 mmol/L (21-33); CHLORIDE 100 mmol/L (98-107); GFR AFRICAN-AMERICAN > 60; GLUCOSE,RANDOM 95 mg/dL (70-110); POTASSIUM 4.1 mmol/L (3.6-5.0); SODIUM 136 mmol/L (132-148); TOTAL PROTEIN 7.3 g/dL (5.8-8.3)
--- NOTE | 2017-03-18 08:36 | CON ---
DATE: 03/17/2017 HISTORY OF PRESENT ILLNESS: The patient is a 56-year-old male with long debilitating history of alcohol use disorder, multiple complications because of that. The patient has COPD and chest pain, that is why he was admitted on the medical side. Psych consult was called for evaluation of mood symptoms and the patient was expressing thoughts of killing himself by overdose. The patient was seen and examined today on the medical side. The patient presented to be depressed and tearful, flat affect. The patient is currently on one-to-one observation for suicidal ideation. 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 The patient remembers this proposal manager writer by name. The patient reported that things were not going well for him. The patient reported that he was feeling depressed and hopeless because he is homeless and he is jobless. The patient reported that he lives with alcoholic adela and another friend, who also has alcohol addiction. The patient expressed thoughts of killing himself by overdosing on pills as well as harming others, but no intent. The patient said that he is seeing people, who are passing by. The patient overall was pleasant, but there is some psychomotor retardation. MEDICATIONS: Reviewed. The patient is on DuoNeb, Lovenox, Ativan 2 mg IV push q.4 hours, Ativan 1 mg IV push q.6 hours scheduled, we will increase that dose. The patient is also on banana bag, multivitamins, folic acid, Zofran, Protonix, and thiamine. PHYSICAL EXAMINATION: VITAL SIGNS: Reviewed. The patient's temperature is 97.6, pulse 99, blood pressure 111/69, respirations 17, and oxygen saturation 97%. MENTAL STATUS EXAMINATION: The patient presented to be alert, oriented, pleasant. There is some psychomotor retardation. Mood described as hopeless. Affect was constricted. Mood congruent. Thought process seems to be concrete. Thought content, the patient reported that he has visual hallucinations and also the patient hears some background sounds like a radio. Denied command type hallucinations. The patient has suicidal ideation with the plan to overdose on pills, but no intent. Insight and judgment seems to be limited. Impulses are well controlled. LABORATORY DATA: Reviewed. Hemoglobin and hematocrit 9.8 and 32.0. Chemistry reviewed, AST and ALT within normal limits. Urinalysis negative for infection and alcohol was 228. The patient was drinking beer on daily basis. The patient has alcohol withdrawal, delirium in the past. The patient has alcohol withdrawal seizures and the patient has alcohol use disorder in the past. No psych admission. IMPRESSION: Alcohol use disorder, rule out substance-induced mood disorder, rule out major depressive disorder. PLAN: Continue current management. Continue current medications. On discharge, we will increase the dose of Ativan to 2 mg 4 times a day IV push, multivitamins, thiamine and folic acid. Seroquel will be started at the nighttime as needed for psychotic symptoms. Social work evaluation. Psychiatry team will follow up on this patient in order to make determination if the patient meets the criteria to go to a psychiatric inpatient unit or if his suicidal ideations improved. Meanwhile, continue the current medications. Should you have any questions, give me a call back. Dr. Vitale will follow up the patient. Thank you very much for letting me to participate in the care of your patient. Matilde Anderson MD
--- NOTE | 2017-03-18 10:11 | RAD ---
HISTORY: Shortness of breath. Portable study 17:22 COMPARISON: 03/16/2017 TECHNIQUE: Chest PA and lateral FINDINGS: LUNGS: No active pulmonary disease. PLEURA: No significant pleural effusion identified. No pneumothorax apparent. CARDIOVASCULAR: No radiographic findings to suggest acute or significant cardiovascular disease. OSSEOUS STRUCTURES: No significant abnormalities. VISUALIZED UPPER ABDOMEN: Normal. OTHER FINDINGS: None. IMPRESSION: No active disease. No significant interval change compared to the prior examination(s).
[2017-03-18] MEDS: Enoxaparin 30 mg Syringe SC SCH (11:00)
[2017-03-18] MEDS: Multivitamin With Minerals Tab PO SCH (12:01)
[2017-03-18 13:01] LABS: MAGNESIUM 1.8 mg/dL (1.7-2.2)
--- NOTE | 2017-03-18 15:45 | CP.PCM.PN ---
<Aman Huizar - Last Filed: 03/18/17 15:40> Subjective - Date & Time of Evaluation Date of Evaluation: 03/18/17 Time of Evaluation: 15:40 - Subjective Subjective: Medicine Progress Note Pt seen and examined at bedside. No acute overnight events. Pt states he still feels depressed, but suicidal/homicidal ideations are improved. Patient is currently on 1:1 for suicidal ideation. Pt denied CP, SOB, nausea, vomiting, diarrhea, abdominal pain, diaphoresis, fever, chills, MIN, or dizziness. Objective - Vital Signs/Intake and Output Vital Signs (last 24 hours): Temp Pulse Resp BP Pulse Ox 97.3 F L 90 20 138/80 97 03/18/17 08:17 03/18/17 08:17 03/18/17 08:17 03/18/17 08:17 03/18/17 08:17 Intake and Output: 03/18/17 03/18/17 06:59 18:59 Intake Total 960 540 Output Total 1300 750 Balance -340 -210 - Medications Medications: Current Medications Albuterol/Ipratropium (Duoneb 3 Mg/0.5 Mg (3 Ml) Ud) 3 ml IH [id number] PRN PRN Reason: Shortness of Breath Albuterol/Ipratropium (Duoneb 3 Mg/0.5 Mg (3 Ml) Ud) 3 ml IH [id number] PRN PRN Reason: Wheezing Benzonatate (Tessalon Perles) 100 mg PO TID [facility] Last Admin: 03/18/17 14:47 Dose: 100 mg Chlordiazepoxide (Librium) 10 mg PO Q8 SOPHIA PRN Reason: Protocol Last Admin: 03/18/17 14:45 Dose: Not Given Enoxaparin Sodium (Lovenox) 30 mg SC DAILY SOPHIA PRN Reason: Protocol Last Admin: 03/18/17 11:00 Dose: 30 mg Folic Acid (Folic Acid) 1 mg PO DAILY [facility] Last Admin: 03/18/17 10:59 Dose: 1 mg Lorazepam (Ativan) 2 mg IVP Q4 PRN; Protocol PRN Reason: Anxiety Multivitamins/Minerals (Therapeutic-M Tab) 1 tab PO DAILY [facility] Last Admin: 03/18/17 12:01 Dose: 1 tab Ondansetron HCl (Zofran Inj) 4 mg IVP Q4H PRN PRN Reason: Nausea/Vomiting Last Admin: 03/18/17 02:48 Dose: 4 mg Pantoprazole Sodium (Protonix Ec Tab) 40 mg PO ACB SOPHIA Quetiapine Fumarate (Seroquel) 50 mg PO HS PRN; Protocol PRN Reason: hallucinations/agitation Last Admin: 03/17/17 22:35 Dose: 50 mg Thiamine HCl (Vitamin B1 Tab) 100 mg PO DAILY SOPHIA Last Admin: 03/18/17 10:30 Dose: 100 mg - Labs Labs: 03/18/17 07:30 03/18/17 07:30 - Constitutional Appears: No Acute Distress - Head Exam Head Exam: NORMAL INSPECTION - Eye Exam Eye Exam: Normal appearance - ENT Exam ENT Exam: Normal Exam - Respiratory Exam Respiratory Exam: Clear to Ausculation Bilateral. absent: Accessory Muscle Use , Rales, Rhonchi, Wheezes, Respiratory Distress - Cardiovascular Exam Cardiovascular Exam: RRR, +S1, +S2. absent: Gallop, Rubs, Murmur - GI/Abdominal Exam GI & Abdominal Exam: Soft. absent: Firm, Guarding, Tenderness, Rebound - Extremities Exam Additional comments: minor UE tremor b/l - Back Exam Back Exam: NORMAL INSPECTION - Neurological Exam Neurological Exam: Alert, Awake, Oriented x3 - Psychiatric Exam Psychiatric exam: Depressed - Skin Skin Exam: Dry, Intact, Normal Color, Warm Assessment and Plan - Assessment and Plan (Free Text) Assessment: 56yo male PMHx COPD and ETOH abuse, presents for alcohol intoxication, left sided chest pain, nausea, vomiting, SI, HI Plan: 1. Chest pain, ACS ruled out - Likely MSK as it is reproducible chest pain on exam - Trop neg x 3 - EKG: HR 90, possible 1st degree AV block (seen on prev EKG). No st changes 2. Alcohol intoxication/withdrawal - ETOH level 228 on admission - CIWA 1 today - Tapered Librium to 10 mg q8h - Ativan 2 mg IV q4h prn, pt has not required - Zofran 4mg ivp q4 prn - Thiamine, Folate, MV PO - Seizure/Aspiration precautions - Fall precautions - PT eval and treat 3. Suicidal/homicidal ideations - Patient states that he has a plan (overdose on pills). - Psych consulted - Seroquel 50mg po hs - 1:1 Obs 4. Hx of COPD - Duoneb 3ml inh q6 and q4 prn GI/DVT ppx - Protonix 40mg ivp qd - Lovenox 30mg sc qd Pt seen and discussed in detail with Dr. Chung. Abdi Huizar, PGY1 <Jessica Chung - Last Filed: 03/18/17 17:11> Objective - Vital Signs/Intake and Output Vital Signs (last 24 hours): Temp Pulse Resp BP Pulse Ox 97.3 F L 90 20 138/80 97 03/18/17 08:17 03/18/17 08:17 03/18/17 08:17 03/18/17 08:17 03/18/17 08:17 Intake and Output: 03/18/17 03/18/17 06:59 18:59 Intake Total 960 540 Output Total 1300 750 Balance -340 -210 - Medications Medications: Current Medications Albuterol/Ipratropium (Duoneb 3 Mg/0.5 Mg (3 Ml) Ud) 3 ml IH [id number] PRN PRN Reason: Shortness of Breath Albuterol/Ipratropium (Duoneb 3 Mg/0.5 Mg (3 Ml) Ud) 3 ml IH [id number] PRN PRN Reason: Wheezing Benzonatate (Tessalon Perles) 100 mg PO TID [facility] Last Admin: 03/18/17 14:47 Dose: 100 mg Chlordiazepoxide (Librium) 10 mg PO Q8 SOPHIA PRN Reason: Protocol Last Admin: 03/18/17 14:45 Dose: Not Given Enoxaparin Sodium (Lovenox) 30 mg SC DAILY SOPHIA PRN Reason: Protocol Last Admin: 03/18/17 11:00 Dose: 30 mg Folic Acid (Folic Acid) 1 mg PO DAILY [facility] Last Admin: 03/18/17 10:59 Dose: 1 mg Lorazepam (Ativan) 2 mg IVP Q4 PRN; Protocol PRN Reason: Anxiety Multivitamins/Minerals (Therapeutic-M Tab) 1 tab PO DAILY [facility] Last Admin: 03/18/17 12:01 Dose: 1 tab Ondansetron HCl (Zofran Inj) 4 mg IVP Q4H PRN PRN Reason: Nausea/Vomiting Last Admin: 03/18/17 02:48 Dose: 4 mg Pantoprazole Sodium (Protonix Ec Tab) 40 mg PO ACB SOPHIA Quetiapine Fumarate (Seroquel) 50 mg PO HS PRN; Protocol PRN Reason: hallucinations/agitation Last Admin: 03/17/17 22:35 Dose: 50 mg Thiamine HCl (Vitamin B1 Tab) 100 mg PO DAILY SOPHIA Last Admin: 03/18/17 10:30 Dose: 100 mg - Labs Labs: 03/18/17 07:30 03/18/17 07:30 Attending/Attestation - Attestation I have personally seen and examined this patient.: Yes I have fully participated in the care of the patient.: Yes I have reviewed all pertinent clinical information, including history, physical exam and plan: Yes Notes (Text): I have seen and examined the patient at bedside. Agree with the above note with the following additions/ exceptions: Briefly this is 56 year old male with history of COPD, alcohol abuse, gastritis, erosive esophagitis, chronic pancreatitis, anemia who was admitted for alcohol intoxication. ACS ruled out. He denies any pain today. Complains of mild tremors and nausea. Decrease librium to 10 q8 and will monitor patient closely. As patient expressed suicidal and homicidal ideation, will continue 1:1. Psych eval appreciated. Continue seroquel. Awaiting psych follow up. Continue protonix. He needs repeat endoscopy as an outpatient. Alcohol cessation counselling provided. Upon discharge patient will follow up with Dr Alexander. Dr Jessica Chung
[2017-03-18 16:25] VITALS: BP 104/70; RESP 18; TEMP 98.6; O2SAT 96
[2017-03-19 07:22] LABS: MEAN CELL VOLUME 71.6 fl (80.0-105.0); MEAN CORPUSCULAR HEMOGLOBIN 21.2 pg (25.0-35.0); MEAN CORPUSCULAR HGB CONC 29.7 g/dl (31.0-37.0); MEAN PLATELET VOLUME 9.2 fl (7.0-11.0); RED CELL DISTRIBUTION WIDTH 18.1 % (11.5-14.5); WHITE BLOOD COUNT 7.9 10^3/ul (4.5-11.0)
[2017-03-19] MEDS ORDERED: Pantoprazole 40 mg EC Tab PO SCH (07:30)
[2017-03-19 07:53] LABS: ALKALINE PHOSPHATASE 120 U/L (38-126); ALT/SGPT 29 U/L (7-56); AST/SGOT 32 U/L (17-59); BILIRUBIN,TOTAL 0.5 mg/dL (0.2-1.3); BLOOD UREA NITROGEN 9 mg/dL (7-21); CALCIUM 8.8 mg/dL (8.4-10.5); CARBON DIOXIDE 28 mmol/L (21-33); CHLORIDE 98 mmol/L (98-107); GFR AFRICAN-AMERICAN > 60; GLUCOSE,RANDOM 101 mg/dL (70-110); MAGNESIUM 1.7 mg/dL (1.7-2.2); SODIUM 135 mmol/L (132-148); TOTAL PROTEIN 7.2 g/dL (5.8-8.3)
[2017-03-19] MEDS: Enoxaparin 30 mg Syringe SC SCH (09:00)
[2017-03-19] MEDS: Multivitamin With Minerals Tab PO SCH (09:00)
[2017-03-19 10:33] VITALS: PULSE 92
--- NOTE | 2017-03-19 14:19 | CP.PCM.DIS ---
<Aman Huizar - Last Filed: 03/19/17 14:06> Provider - Provider Date of Admission: 03/16/17 16:11 Attending physician: Jessica Chung MD Primary care physician: Tommie Alexander MD Consults: Psych: Monica Time Spent in preparation of Discharge (in minutes): 45 Hospital Course - Lab Results Lab Results: Most Recent Lab Values WBC 7.9 10^3/ul (4.5-11.0) 03/19/17 06:50 RBC 4.33 10^6/uL (3.5-6.1) 03/19/17 06:50 Hgb 9.2 g/dL (14.0-18.0) L 03/19/17 06:50 Hct 31.0 % (42.0-52.0) L 03/19/17 06:50 MCV 71.6 fl (80.0-105.0) L 03/19/17 06:50 MCH 21.2 pg (25.0-35.0) L 03/19/17 06:50 MCHC 29.7 g/dl (31.0-37.0) L 03/19/17 06:50 RDW 18.1 % (11.5-14.5) H 03/19/17 06:50 Plt Count 185 10^3/uL (120.0-450.0) 03/19/17 06:50 MPV 9.2 fl (7.0-11.0) 03/19/17 06:50 Gran % 82.4 % (50.0-68.0) H 03/16/17 14:50 Lymph % (Auto) 8.5 % (22.0-35.0) L 03/16/17 14:50 Daniels % (Auto) 8.8 % (1.0-6.0) H 03/16/17 14:50 Eos % (Auto) 0.1 % (1.5-5.0) L 03/16/17 14:50 Baso % (Auto) 0.2 % (0.0-3.0) 03/16/17 14:50 Gran # 8.88 (1.4-6.5) H 03/16/17 14:50 Lymph # 0.9 (1.2-3.4) L 03/16/17 14:50 Daniels # 1.0 (0.1-0.6) H 03/16/17 14:50 Eos # 0.0 (0.0-0.7) 03/16/17 14:50 Baso # 0.02 K/mm3 (0.0-2.0) 03/16/17 14:50 Sodium 135 mmol/L (132-148) 03/19/17 06:50 Potassium 4.0 mmol/L (3.6-5.0) 03/19/17 06:50 Chloride 98 mmol/L (98-107) 03/19/17 06:50 Carbon Dioxide 28 mmol/L (21-33) 03/19/17 06:50 Anion Gap 14 (10-20) 03/19/17 06:50 BUN 9 mg/dL (7-21) 03/19/17 06:50 Creatinine 1.0 mg/dl (0.8-1.5) 03/19/17 06:50 Est GFR ( Amer) > 60 03/19/17 06:50 Est GFR (Non-Af Amer) > 60 03/19/17 06:50 POC Glucose (mg/dL) 102 mg/dL (65-110) 03/19/17 11:16 Random Glucose 101 mg/dL (70-110) 03/19/17 06:50 Calcium 8.8 mg/dL (8.4-10.5) 03/19/17 06:50 Phosphorus 4.0 mg/dL (2.5-4.5) 03/19/17 06:50 Magnesium 1.7 mg/dL (1.7-2.2) 03/19/17 06:50 Total Bilirubin 0.5 mg/dL (0.2-1.3) 03/19/17 06:50 AST 32 U/L (17-59) 03/19/17 06:50 ALT 29 U/L (7-56) 03/19/17 06:50 Alkaline Phosphatase 120 U/L (38-126) 03/19/17 06:50 Lactate Dehydrogenase 378 U/L (333-699) 03/16/17 21:10 Total Creatine Kinase 53 U/L (35-230) 03/16/17 21:10 Troponin I < 0.01 ng/mL 03/17/17 06:00 NT-Pro-B Natriuret Pep 63.7 pg/mL (0-450) 03/16/17 14:50 Total Protein 7.2 g/dL (5.8-8.3) 03/19/17 06:50 Albumin 3.5 g/dL (3.0-4.8) 03/19/17 06:50 Globulin 3.7 gm/dL 03/19/17 06:50 Albumin/Globulin Ratio 1.0 (1.1-1.8) L 03/19/17 06:50 Urine Color Yellow (YELLOW) 03/16/17 14:50 Urine Appearance Clear (CLEAR) 03/16/17 14:50 Urine pH 6.0 (4.7-8.0) 03/16/17 14:50 Ur Specific Manati <= 1.005 (1.005-1.035) 03/16/17 14:50 Urine Protein Negative mg/dL (<30 mg/dL) 03/16/17 14:50 Urine Glucose (UA) Negative mg/dL (NEGATIVE) 03/16/17 14:50 Urine Ketones Negative mg/dL (NEGATIVE) 03/16/17 14:50 Urine Blood Negative (NEGATIVE) 03/16/17 14:50 Urine Nitrate Negative (NEGATIVE) 03/16/17 14:50 Urine Bilirubin Negative (NEGATIVE) 03/16/17 14:50 Urine Urobilinogen 0.2 E.U./dL (<1 E.U./dL) 03/16/17 14:50 Ur Leukocyte Esterase Negative Vanda/uL (NEGATIVE) 03/16/17 14:50 Salicylates < 1 mg/dL (2.0-20.0) L 03/16/17 14:50 Urine Opiates Screen Negative (NEGATIVE) 03/16/17 14:50 Urine Methadone Screen Negative (NEGATIVE) 03/16/17 14:50 Acetaminophen < 10.0 ug/ml (10.0-20.0) L 03/16/17 14:50 Ur Barbiturates Screen Negative (NEGATIVE) 03/16/17 14:50 Ur Phencyclidine Scrn Negative (NEGATIVE) 03/16/17 14:50 Ur Amphetamines Screen Negative (NEGATIVE) 03/16/17 14:50 U Benzodiazepines Scrn Positive (NEGATIVE) 03/16/17 14:50 U Oth Cocaine Metabols Negative (NEGATIVE) 03/16/17 14:50 U Cannabinoids Screen Negative (NEGATIVE) 03/16/17 14:50 Alcohol, Quantitative 228 mg/dL (0-10) H 03/16/17 14:50 - Hospital Course Hospital Course: 56 year old homeless male, with PMH whose past medical history includes COPD, alcohol abuse, frequent admissions to [facility], presented to ED for alcohol intoxication. Patient was discharged from the ED for a chest pain complaint after all workup was negative. Patient stated that after drinking multiple beers, he might have run into a wall and hurt his left side of chest. Also reports lightheadedness, diaphoresis, nausea, and mild SOB. Patient also describes having suicidal ideations (overdosing on pills) and homicidal ideations (hurting his brother and his friend). Patient was admitted for evaluation and treatment for chest pain to rule out acute coronary syndrome, alcohol intoxication and withdrawal, and suicidal and homicidal ideations. Patient was placed on 1:1 observation due to suicidal ideations. Cardiac enzymes were negative x [address] showed no ST or T wave abnormalities, which ruled out ACS. Alcohol level was 228 on admission. Patient was placed on CIWA protocol and treated with Banana bag, tapering dose of Librium, and Ativan as needed. Pt responded to tapering doses of Librium well and did not require Ativan prn during hospital course. Pt was placed on PO thiamine, folate, and multivitamin on completion of banana bag. Psych was consulted due to suicidal ideation and homicidal ideations. Psych recommended against psychiatric admission. Today, patient was seen and examined at bedside. Pt states that CP had resolved and was able to ambulate without difficulty to the bathroom. Physical therapy evaluated the patient and determined the PT was not needed and the patient could be discharged home. As the patient was now medical stable, he was discharged. Patient was counseled on the risks of alcohol abuse and advised complete cessation. Patient was given a prescription for folate, thiamine, multivitamin, and protonix. Pt was advised to follow up with PMD upon discharge. Discharge Diagnosis 1. Chest pain, ACS ruled out 2. Alcohol Abuse/Withdrawal 3. Suicidal/homcidal ideation Discharge Medications - Folate PO daily #15 - Thiamine PO daily #15 - Multivitamin PO daily #15 - Protonix 40 mg PO daily #15 Discharge Exam - Head Exam Head Exam: NORMAL INSPECTION - Eye Exam Eye Exam: Normal appearance - ENT Exam ENT Exam: Normal Exam - Respiratory Exam Respiratory Exam: Clear to PA & Lateral. absent: Accessory Muscle Use, Rales, Rhonchi, Wheezes, Respiratory Distress - Cardiovascular Exam Cardiovascular Exam: RRR, +S1, +S2. absent: Diastolic murmur, Gallop, Rubs, Systolic Murmur - GI/Abdominal Exam GI & Abdominal Exam: Soft. absent: Distended, Guarding, Rebound, Tenderness - Extremities Exam Extremities exam: normal inspection - Back Exam Back exam: NORMAL INSPECTION - Neurological Exam Neurological exam: Alert, Oriented x3 - Psychiatric Exam Psychiatric exam: Normal Affect, Normal Mood - Skin Skin Exam: Dry, Intact, Normal Color, Warm Discharge Plan - Discharge Medications Prescriptions: Folic Acid 1 mg PO DAILY #15 tab Multimineral/Multivitamin [Therapeutic-M Tab] 1 tab PO DAILY #15 tab Pantoprazole [Protonix EC Tab] 40 mg PO ACB #15 ect Thiamine [Vitamin B1 Tab] 100 mg PO DAILY #15 tab - Follow Up Plan Condition: STABLE Disposition: HOME/ ROUTINE Instructions: How to Stop Smoking (DC), Dehydration (DC), Dehydration (GEN), Alcohol Withdrawal (DC), Alcohol Dependence (GEN), Alcohol Use Disorder (DC) Additional Instructions: 1. Follow up with PMD within 1 week 2. Cease all alcohol use 3. Take medications as prescribed 4. Return to ED if symptoms worsen Referrals: Tommie Alexander MD [Primary Care Provider] - <Jessica Chung - Last Filed: 03/19/17 17:34> Provider - Provider Date of Admission: 03/16/17 16:11 Attending physician: Jessica Chung MD Primary care physician: Tommie Alexander MD [facility] Course - Lab Results Lab Results: Most Recent Lab Values WBC 7.9 10^3/ul (4.5-11.0) 03/19/17 06:50 RBC 4.33 10^6/uL (3.5-6.1) 03/19/17 06:50 Hgb 9.2 g/dL (14.0-18.0) L 03/19/17 06:50 Hct 31.0 % (42.0-52.0) L 03/19/17 06:50 MCV 71.6 fl (80.0-105.0) L 03/19/17 06:50 MCH 21.2 pg (25.0-35.0) L 03/19/17 06:50 MCHC 29.7 g/dl (31.0-37.0) L 03/19/17 06:50 RDW 18.1 % (11.5-14.5) H 03/19/17 06:50 Plt Count 185 10^3/uL (120.0-450.0) 03/19/17 06:50 MPV 9.2 fl (7.0-11.0) 03/19/17 06:50 Gran % 82.4 % (50.0-68.0) H 03/16/17 14:50 Lymph % (Auto) 8.5 % (22.0-35.0) L 03/16/17 14:50 Daniels % (Auto) 8.8 % (1.0-6.0) H 03/16/17 14:50 Eos % (Auto) 0.1 % (1.5-5.0) L 03/16/17 14:50 Baso % (Auto) 0.2 % (0.0-3.0) 03/16/17 14:50 Gran # 8.88 (1.4-6.5) H 03/16/17 14:50 Lymph # 0.9 (1.2-3.4) L 03/16/17 14:50 Daniels # 1.0 (0.1-0.6) H 03/16/17 14:50 Eos # 0.0 (0.0-0.7) 03/16/17 14:50 Baso # 0.02 K/mm3 (0.0-2.0) 03/16/17 14:50 Sodium 135 mmol/L (132-148) 03/19/17 06:50 Potassium 4.0 mmol/L (3.6-5.0) 03/19/17 06:50 Chloride 98 mmol/L (98-107) 03/19/17 06:50 Carbon Dioxide 28 mmol/L (21-33) 03/19/17 06:50 Anion Gap 14 (10-20) 03/19/17 06:50 BUN 9 mg/dL (7-21) 03/19/17 06:50 Creatinine 1.0 mg/dl (0.8-1.5) 03/19/17 06:50 Est GFR ( Amer) > 60 03/19/17 06:50 Est GFR (Non-Af Amer) > 60 03/19/17 06:50 POC Glucose (mg/dL) 114 mg/dL (65-110) H 03/19/17 15:43 Random Glucose 101 mg/dL (70-110) 03/19/17 06:50 Calcium 8.8 mg/dL (8.4-10.5) 03/19/17 06:50 Phosphorus 4.0 mg/dL (2.5-4.5) 03/19/17 06:50 Magnesium 1.7 mg/dL (1.7-2.2) 03/19/17 06:50 Total Bilirubin 0.5 mg/dL (0.2-1.3) 03/19/17 06:50 AST 32 U/L (17-59) 03/19/17 06:50 ALT 29 U/L (7-56) 03/19/17 06:50 Alkaline Phosphatase 120 U/L (38-126) 03/19/17 06:50 Lactate Dehydrogenase 378 U/L (333-699) 03/16/17 21:10 Total Creatine Kinase 53 U/L (35-230) 03/16/17 21:10 Troponin I < 0.01 ng/mL 03/17/17 06:00 NT-Pro-B Natriuret Pep 63.7 pg/mL (0-450) 03/16/17 14:50 Total Protein 7.2 g/dL (5.8-8.3) 03/19/17 06:50 Albumin 3.5 g/dL (3.0-4.8) 03/19/17 06:50 Globulin 3.7 gm/dL 03/19/17 06:50 Albumin/Globulin Ratio 1.0 (1.1-1.8) L 03/19/17 06:50 Urine Color Yellow (YELLOW) 03/16/17 14:50 Urine Appearance Clear (CLEAR) 03/16/17 14:50 Urine pH 6.0 (4.7-8.0) 03/16/17 14:50 Ur Specific Manati <= 1.005 (1.005-1.035) 03/16/17 14:50 Urine Protein Negative mg/dL (<30 mg/dL) 03/16/17 14:50 Urine Glucose (UA) Negative mg/dL (NEGATIVE) 03/16/17 14:50 Urine Ketones Negative mg/dL (NEGATIVE) 03/16/17 14:50 Urine Blood Negative (NEGATIVE) 03/16/17 14:50 Urine Nitrate Negative (NEGATIVE) 03/16/17 14:50 Urine Bilirubin Negative (NEGATIVE) 03/16/17 14:50 Urine Urobilinogen 0.2 E.U./dL (<1 E.U./dL) 03/16/17 14:50 Ur Leukocyte Esterase Negative Vanda/uL (NEGATIVE) 03/16/17 14:50 Salicylates < 1 mg/dL (2.0-20.0) L 03/16/17 14:50 Urine Opiates Screen Negative (NEGATIVE) 03/16/17 14:50 Urine Methadone Screen Negative (NEGATIVE) 03/16/17 14:50 Acetaminophen < 10.0 ug/ml (10.0-20.0) L 03/16/17 14:50 Ur Barbiturates Screen Negative (NEGATIVE) 03/16/17 14:50 Ur Phencyclidine Scrn Negative (NEGATIVE) 03/16/17 14:50 Ur Amphetamines Screen Negative (NEGATIVE) 03/16/17 14:50 U Benzodiazepines Scrn Positive (NEGATIVE) 03/16/17 14:50 U Oth Cocaine Metabols Negative (NEGATIVE) 03/16/17 14:50 U Cannabinoids Screen Negative (NEGATIVE) 03/16/17 14:50 Alcohol, Quantitative 228 mg/dL (0-10) H 03/16/17 14:50 Attending/Attestation - Attestation I have personally seen and examined this patient.: Yes I have fully participated in the care of the patient.: Yes I have reviewed all pertinent clinical information, including history, physical exam and plan: Yes Notes (Text): I have seen and examined the patient at bedside. Agree with the above note with the following additions/ exceptions: Briefly this is 56 year old male with history of COPD, alcohol abuse, gastritis, erosive esophagitis, chronic pancreatitis, anemia who was admitted for alcohol intoxication. ACS ruled out. He denies any pain today. Denies nausea, vomiting, headache, abdominal pain, tremors or any other complaints. Patient was given tapering doses of librium. He was on 1:1 as he expressed suicidal or homicidal ideation however psych re eval was done and patient was cleared to be discharged. 1:1 was stopped. Alcohol cessation counselling was provided however patient is not interested. Continue seroquel. He needs repeat endoscopy as an outpatient. Alcohol cessation counselling provided. Upon discharge patient will follow up with Dr Alexander. Dr Jessica Chung
== END 2017-03-19 16:58 | disposition home or self-care (01) | DRG 750 ==
LOC: ED 13:14 → ERH 16:11 → 3RNO 18:08
PROVIDERS: ADMIT Internal Medicine; ATTEND Hospitalist
DX: F10.239 Alcohol dependence with withdrawal, unspecified (principal); E86.0 Dehydration; R45.851 Suicidal ideations; E83.42 Hypomagnesemia; K86.1 Other chronic pancreatitis; R45.850 Homicidal ideations; E87.6 Hypokalemia; J44.9 Chronic obstructive pulmonary disease, unspecified; I10 Essential (primary) hypertension; I44.0 Atrioventricular block, first degree; K21.9 Gastro-esophageal reflux disease without esophagitis; R62.7 Adult failure to thrive; Y90.7 Blood alcohol level of 200-239 mg/100 ml; Z59.0 Homelessness; Z80.0 Family history of malignant neoplasm of digestive organs; Z87.19 Personal history of other diseases of the digestive system; Z87.891 Personal history of nicotine dependence; Z90.79 Acquired absence of other genital organ(s); Z78.1 Physical restraint status

== ENCOUNTER 2017-04-02 22:53 | Emergency (ER) | payer MEDICAID ==
[2017-04-02 22:53] VITALS: BMI 31.4
== END 2017-04-03 00:45 | disposition left against medical advice (07) ==
LOC: ED 22:53
DX: Z02.89 Encounter for other administrative examinations (principal); R53.1 Weakness

== ENCOUNTER 2017-04-10 01:49 | Emergency (ER) | payer MEDICAID ==
[2017-04-10 01:49] VITALS: BMI 31.4
[2017-04-10 02:25] VITALS: TEMP 98.1
--- NOTE | 2017-04-10 02:43 | ED PDOC ---
Arrival/HPI - General Chief Complaint: Shortness Of Breath Time Seen by Provider: 04/10/17 02:38 Historian: Patient - History of Present Illness Narrative History of Present Illness (Text): 04/10/17 02:41 Travis Royal is a 56 year old male, whose past medical history includes COPD, alcohol abuse, erosice gastritis, chronic pancreatitis, hepatitis C, and microcytic anemia, who presents to the Emergency department complaining of shortness of breath with chest discomfort tonight. Patient denies any fever, chills, nausea, vomiting, diarrhea, urinary symptoms, back pain, neck pain, headache, dizziness, or any other complaints. Symptom Onset: Gradual Symptom Course: Unchanged Activities at Onset: Light Context: Home Past Medical History - Provider Review Nursing Documentation Reviewed: Yes - Past History Past History: No Previous - Infectious Disease Hx of Infectious Diseases: None - Tetanus Immunization Tetanus Immunization: Unknown - Cardiac Hx Cardiac Disorders: Yes Hx Hypertension: Yes - Pulmonary Hx Chronic Obstructive Pulmonary Disease (COPD): Yes - Neurological Hx Neurological Disorder: No - HEENT Hx HEENT Disorder: No - Renal Hx Renal Disorder: No - Endocrine/Metabolic Hx Endocrine Disorders: No - Hematological/Oncological Hx Blood Disorders: Yes Hx Anemia: Yes Hx Hepatitis C: No - Integumentary Hx Dermatological Disorder: No - Musculoskeletal/Rheumatological Hx Musculoskeletal Disorders: Yes Hx Back Pain: Yes Hx Falls: No - Gastrointestinal Hx Gastrointestinal Disorders: Yes Hx Gastritis: Yes Hx Gastroesophageal Reflux: Yes Hx Pancreatitis: Yes - Genitourinary/Gynecological Hx Genitourinary Disorders: No - Psychiatric Hx Psychophysiologic Disorder: Yes Hx Anxiety: Yes Hx Substance Use: Yes Other/Comment: alcohol abuse - Surgical History Other/Comment: orcchectomy, ventral and inguinal hernia repair - Anesthesia Hx Anesthesia: Yes Hx Anesthesia Reactions: No Hx Malignant Hyperthermia: No - Suicidal Assessment Feels Threatened In Home Enviroment: No Family/Social History - Physician Review Nursing Documentation Reviewed: Yes Family/Social History: Unknown Family HX Smoking Status: Former Smoker Hx Alcohol Use: Yes Frequency of alcohol use: Daily Amount per day: 10 Hx Substance Use: Yes Hx Substance Use Treatment: No Allergies/Home Meds Allergies/Adverse Reactions: Allergies Penicillins Allergy (Mild, Verified 04/10/17 02:22) RASH Review of Systems - Physician Review All systems were reviewed & negative as marked: Yes - Review of Systems Constitutional: Normal. absent: Fevers Eyes: Normal ENT: Normal Respiratory: SOB. absent: Cough Cardiovascular: Chest Pain Gastrointestinal: Normal. absent: Abdominal Pain, Diarrhea, Nausea, Vomiting Genitourinary Male: Normal. absent: Dysuria, Frequency, Hematuria, Urinary Output Changes Musculoskeletal: Normal. absent: Back Pain, Neck Pain Skin: Normal. absent: Rash Neurological: Normal. absent: Headache, Dizziness Endocrine: Normal Hemo/Lymphatic: Normal Psychiatric: Normal Physical Exam Vital Signs Reviewed: Yes Vital Signs Temp Pulse Resp BP Pulse Ox 04/10/17 05:44 79 18 141/72 98 04/10/17 03:01 85 18 135/70 96 04/10/17 02:45 18 04/10/17 02:22 98.1 F Temperature: Afebrile Blood Pressure: Normal Pulse: Regular Respiratory Rate: Normal Appearance: Positive for: Well-Appearing, Non-Toxic, Comfortable Pain Distress: None Mental Status: Positive for: Alert and Oriented X 3 - Systems Exam Head: Present: Atraumatic, Normocephalic Pupils: Present: PERRL Extroacular Muscles: Present: EOMI Conjunctiva: Present: Normal Mouth: Present: Moist Mucous Membranes Neck: Present: Normal Range of Motion Respiratory/Chest: Present: Clear to Auscultation, Good Air Exchange. No: Respiratory Distress, Accessory Muscle Use Cardiovascular: Present: Regular Rate and Rhythm, Normal S1, S2. No: Murmurs Abdomen: Present: Normal Bowel Sounds. No: Tenderness, Distention, Peritoneal Signs Back: Present: Normal Inspection Upper Extremity: Present: Normal Inspection. No: Cyanosis, Edema Lower Extremity: Present: Normal Inspection. No: Edema Neurological: Present: GCS=15, CN II-XII Intact, Speech Normal Skin: Present: Warm, Dry, Normal Color. No: Rashes Psychiatric: Present: Alert, Oriented x 3, Normal Insight, Normal Concentration Medical Decision Making ED Course and Treatment: 04/10/17 02:41 Impression: 56 year old male complaining of shortness of breath with chest discomfort tonight. Differential Diagnosis included but are not limited to: COPD Plan: -- Chest X-ray -- Duoneb -- Reassess and disposition Prior Visits: Notes and results from previous visits were reviewed. On 03/16/2017, pt was seen in the Emergency department for left-sided chest pain with shortness of breath, hallucinations, and depression. Pt was admitted to the hospital for further evaluation. Progress Notes: 04/10/17 03:33 Reviewed radiology, Chest X-ray shows no acute processes. 04/10/17 03:43 Reviewed EKG, NSR at [address]-segment elevations or depressions, no T-wave inversions, normal intervals. 04/10/17 05:51 On re-evaluation, patient feels better and is in no acute distress. I have discussed the results and plan with the patient, who expresses understanding. Patient in agreement with plan to be discharged home. Patient is stable for discharge. Patient was instructed to follow up with physician or return if symptoms worsen or new concerning symptoms arise. - RAD Interpretation Radiology Orders: 04/10/17 02:41 CHEST PORTABLE [RAD] Stat Sap Sd Analyst: ED Physician - EKG Interpretation Interpreted by ED Physician: Yes Type: 12 lead EKG - Medication Orders Current Medication Orders: Discontinued Medications Albuterol/Ipratropium (Duoneb 3 Mg/0.5 Mg (3 Ml) Ud) 3 ml IH Q15M SOPHIA Stop: 04/10/17 03:16 Last Admin: 04/10/17 03:05 Dose: 3 ml - Scribe Statement The provider has reviewed the documentation as recorded by the Mary Kaiser Provider Scribe Attestation: All medical record entries made by the Scribe were at my direction and personally dictated by me. I have reviewed the chart and agree that the record accurately reflects my personal performance of the history, physical exam, medical decision making, and the department course for this patient. I have also personally directed, reviewed, and agree with the discharge instructions and disposition. Disposition/Present on Arrival - Present on Arrival Any Indicators Present on Arrival: No History of DVT/PE: No History of Uncontrolled Diabetes: No Urinary Catheter: No History of Decub. Ulcer: No History Surgical Site Infection Following: None - Disposition Have Diagnosis and Disposition been Completed?: Yes Diagnosis: COPD (chronic obstructive pulmonary disease) Disposition: HOME/ ROUTINE Disposition Time: 05:51 Condition: GOOD Discharge Instructions (ExitCare): COPD (Chronic Obstructive Pulmonary Disease ) (ED) Prescriptions: Albuterol HFA [Ventolin HFA] 1 puff IH QID #1 puff Forms: [employer] (Turkmen)
[2017-04-10] MEDS: Albuterol-Ipratrop 3 mg / 0.5 (3 ml) UD IH SCH ×2 (02:45→03:05)
[2017-04-10 03:02] VITALS: RESP 18
[2017-04-10 05:45] VITALS: BP 141/72; PULSE 79; O2SAT 98
--- NOTE | 2017-04-10 08:51 | RAD ---
HISTORY: cp COMPARISON: 03/17/2017 FINDINGS: LUNGS: No active pulmonary disease. PLEURA: No significant pleural effusion identified, no pneumothorax apparent. CARDIOVASCULAR: Normal. OSSEOUS STRUCTURES: No significant abnormalities. VISUALIZED UPPER ABDOMEN: Normal. OTHER FINDINGS: None. IMPRESSION: No active disease.
--- NOTE | 2017-04-10 11:49 | CARD ---
APPROVED REPORT EKG Measurement Heart [id number] <Conclusion> Normal sinus rhythm Normal ECG No change
== END 2017-04-10 06:08 | disposition home or self-care (01) ==
LOC: ED 01:49
DX: J44.9 Chronic obstructive pulmonary disease, unspecified (principal); I10 Essential (primary) hypertension; Z87.891 Personal history of nicotine dependence

== ENCOUNTER 2017-04-13 22:36 | Emergency (ER) | payer MEDICAID ==
[2017-04-13 22:36] VITALS: BMI 31.4
[2017-04-14] MEDS ORDERED: Pantoprazole 40 mg EC Tab PO STA (00:44)
--- NOTE | 2017-04-14 00:59 | ED PDOC ---
Arrival/HPI - General Chief Complaint: Medical Clearance Time Seen by Provider: 04/14/17 00:02 Historian: Patient - History of Present Illness Narrative History of Present Illness (Text): 04/14/17 00:56 56yo male with PMHx of alcohol abuse present with complaint of acid reflux. He states somebody made him angry and then he started having acid reflux. He denies nausea, vomiting, hematemesis, fever, chills, chest pain, SOB, diaphoresis, any other complaint. Past Medical History - Provider Review Nursing Documentation Reviewed: Yes - Past History Past History: No Previous - Infectious Disease Hx of Infectious Diseases: None - Tetanus Immunization Tetanus Immunization: Unknown - Cardiac Hx Cardiac Disorders: Yes Hx Hypertension: Yes - Pulmonary Hx Chronic Obstructive Pulmonary Disease (COPD): Yes - Neurological Hx Neurological Disorder: No - HEENT Hx HEENT Disorder: No - Renal Hx Renal Disorder: No - Endocrine/Metabolic Hx Endocrine Disorders: No - Hematological/Oncological Hx Blood Disorders: Yes Hx Anemia: Yes Hx Hepatitis C: No - Integumentary Hx Dermatological Disorder: No - Musculoskeletal/Rheumatological Hx Musculoskeletal Disorders: Yes Hx Back Pain: Yes Hx Falls: No - Gastrointestinal Hx Gastrointestinal Disorders: Yes Hx Gastritis: Yes Hx Gastroesophageal Reflux: Yes Hx Pancreatitis: Yes - Genitourinary/Gynecological Hx Genitourinary Disorders: No - Psychiatric Hx Psychophysiologic Disorder: Yes Hx Anxiety: Yes Hx Substance Use: No Other/Comment: alcohol abuse - Surgical History Other/Comment: orcchectomy, ventral and inguinal hernia repair - Anesthesia Hx Anesthesia: Yes Hx Anesthesia Reactions: No Hx Malignant Hyperthermia: No - Suicidal Assessment Feels Threatened In Home Enviroment: No Family/Social History - Physician Review Nursing Documentation Reviewed: Yes Family/Social History: Unknown Family HX Smoking Status: Former Smoker Hx Alcohol Use: Yes Frequency of alcohol use: Daily Amount per day: 10 Hx Substance Use: No Hx Substance Use Treatment: No Allergies/Home Meds Allergies/Adverse Reactions: Allergies Penicillins Allergy (Mild, Verified 04/13/17 23:24) RASH Review of Systems - Physician Review All systems were reviewed & negative as marked: Yes - Review of Systems Constitutional: Normal Eyes: Normal ENT: Normal Respiratory: Normal Cardiovascular: Normal Gastrointestinal: Abdominal Pain. absent: Constipation, Diarrhea, Nausea, Vomiting, Hematochezia, Hematemesis Genitourinary Male: Normal Musculoskeletal: Normal Skin: Normal Neurological: Normal Endocrine: Normal Hemo/Lymphatic: Normal Psychiatric: Normal Physical Exam Vital Signs Reviewed: Yes Vital Signs Temp Pulse Resp BP Pulse Ox 04/13/17 23:25 97.9 F 92 H 18 100/57 L 96 Temperature: Afebrile Blood Pressure: Normal Pulse: Regular Respiratory Rate: Normal Appearance: Positive for: Well-Appearing, Non-Toxic, Comfortable Pain Distress: None Mental Status: Positive for: Alert and Oriented X 3 - Systems Exam Head: Present: Atraumatic, Normocephalic Pupils: Present: PERRL Extroacular Muscles: Present: EOMI Conjunctiva: Present: Normal Mouth: Present: Moist Mucous Membranes Neck: Present: Normal Range of Motion Respiratory/Chest: Present: Clear to Auscultation, Good Air Exchange. No: Respiratory Distress, Accessory Muscle Use Cardiovascular: Present: Regular Rate and Rhythm, Normal S1, S2. No: Murmurs Abdomen: Present: Normal Bowel Sounds, Other (soft). No: Tenderness, Distention , Peritoneal Signs, Rebound, Guarding, McBurney's Point Tender, Rovsing's Sign Present Back: Present: Normal Inspection Upper Extremity: Present: Normal Inspection. No: Cyanosis, Edema Lower Extremity: Present: Normal Inspection. No: Edema Neurological: Present: GCS=15, CN II-XII Intact, Speech Normal Skin: Present: Warm, Dry, Normal Color. No: Rashes Psychiatric: Present: Alert, Oriented x 3, Normal Insight, Normal Concentration Medical Decision Making ED Course and Treatment: 04/14/17 01:05 Pt was ambulatory with steady gait in ED. His abdominal exam was benign. He was treated in ED with Protonix and DC home with same medication. Referred to his PMD/GI. - Medication Orders Current Medication Orders: Discontinued Medications Pantoprazole Sodium (Protonix Ec Tab) 40 mg PO STAT STA Stop: 04/14/17 00:45 Disposition/Present on Arrival - Present on Arrival Any Indicators Present on Arrival: No History of DVT/PE: No History of Uncontrolled Diabetes: No Urinary Catheter: No History of Decub. Ulcer: No History Surgical Site Infection Following: None - Disposition Have Diagnosis and Disposition been Completed?: Yes Diagnosis: GERD (gastroesophageal reflux disease) Disposition: HOME/ ROUTINE Disposition Time: 01:00 Patient Plan: Discharge Condition: STABLE Discharge Instructions (ExitCare): Gastroesophageal Reflux Disease (ED) Additional Instructions: Follow up with your Doctor Return to ED for any new or worsening symptoms Prescriptions: Pantoprazole Sodium [Protonix] 40 mg PO DAILY #15 ect Referrals: Tommie Alexander MD [Primary Care Provider] - Follow up with primary
[2017-04-14 01:03] VITALS: BP 133/75; PULSE 88; RESP 16; TEMP 98; O2SAT 99
== END 2017-04-14 01:00 | disposition home or self-care (01) ==
LOC: ED 22:36
DX: K21.9 Gastro-esophageal reflux disease without esophagitis (principal); I10 Essential (primary) hypertension; Z87.891 Personal history of nicotine dependence

== ENCOUNTER 2017-04-16 15:05 | Emergency (ER) | payer MEDICAID ==
[2017-04-16 15:50] VITALS: RESP 18; TEMP 98.1; BMI 30.7
--- NOTE | 2017-04-16 16:28 | ED PDOC ---
Arrival/HPI - General Chief Complaint: Chest Pain Time Seen by Provider: 04/16/17 15:40 - History of Present Illness Narrative History of Present Illness (Text): 56 y/o M p/w alcohol intoxication. Patient states he drank alcohol today and just wants a place to rest and sleep. He denies any chest pain contrary to triage. Denies fever or dyspnea. Past Medical History - Past History Past History: No Previous - Infectious Disease Hx of Infectious Diseases: None - Tetanus Immunization Tetanus Immunization: Unknown - Cardiac Hx Cardiac Disorders: Yes Hx Hypertension: Yes - Pulmonary Hx Chronic Obstructive Pulmonary Disease (COPD): Yes - Neurological Hx Neurological Disorder: No - HEENT Hx HEENT Disorder: No - Renal Hx Renal Disorder: No - Endocrine/Metabolic Hx Endocrine Disorders: No - Hematological/Oncological Hx Blood Disorders: Yes Hx Anemia: Yes Hx Hepatitis C: No - Integumentary Hx Dermatological Disorder: No - Musculoskeletal/Rheumatological Hx Musculoskeletal Disorders: Yes Hx Back Pain: Yes Hx Falls: No - Gastrointestinal Hx Gastrointestinal Disorders: Yes Hx Gastritis: Yes Hx Gastroesophageal Reflux: Yes Hx Pancreatitis: Yes - Genitourinary/Gynecological Hx Genitourinary Disorders: No - Psychiatric Hx Psychophysiologic Disorder: Yes Hx Anxiety: Yes Hx Substance Use: No Other/Comment: alcohol abuse - Surgical History Other/Comment: orcchectomy, ventral and inguinal hernia repair - Anesthesia Hx Anesthesia: Yes Hx Anesthesia Reactions: No Hx Malignant Hyperthermia: No - Suicidal Assessment Feels Threatened In Home Enviroment: No Family/Social History Family/Social History: No Known Family HX Smoking Status: Former Smoker Hx Alcohol Use: Yes Frequency of alcohol use: Daily Amount per day: 10 Hx Substance Use: No Hx Substance Use Treatment: No Allergies/Home Meds Allergies/Adverse Reactions: Allergies Penicillins Allergy (Mild, Verified 04/16/17 15:54) RASH Home Medications: Home Meds Medication Instructions Recorded Confirmed No Known Home Med 04/16/17 04/16/17 Review of Systems - Physician Review All systems were reviewed & negative as marked: Yes - Review of Systems Constitutional: absent: Fevers Cardiovascular: absent: Chest Pain Physical Exam - Physical Exam Narrative Physical Exam (Text): Gen: NAD Head: Atraumatic Eyes: PERRL ENT: Alcohol on breath Neck: Supple CV: Regular rate Resp: No accessory muscle use Abd: Soft, NT Extremities: FROM x 4 Neuro: Awake, alert, no focal deficit. Vital Signs Temp Pulse Resp BP Pulse Ox 04/16/17 15:47 98.1 F 80 18 108/73 97 Medical Decision Making ED Course and Treatment: Observe for sobriety. 04/16/17 19:00 Patient awake, alert, steady gait, no complaints. Will discharge. Disposition/Present on Arrival - Present on Arrival Any Indicators Present on Arrival: No History of DVT/PE: No History of Uncontrolled Diabetes: No Urinary Catheter: No History of Decub. Ulcer: No History Surgical Site Infection Following: None - Disposition Have Diagnosis and Disposition been Completed?: Yes Diagnosis: Alcohol intoxication Disposition: HOME/ ROUTINE Disposition Time: 19:00 Patient Plan: Discharge Condition: STABLE Discharge Instructions (ExitCare): Alcohol Intoxication (ED) Referrals: Chuy Desir MD [Primary Care Provider] - Follow up with primary Forms: [employer] (German)
[2017-04-16 17:28] VITALS: BP 123/77; PULSE 72; O2SAT 96
--- NOTE | 2017-04-16 21:29 | CARD ---
APPROVED REPORT EKG Measurement Heart [id number] <Conclusion> Poor data quality, interpretation may be adversely affected Sinus rhythm with fusion complexes Possible Anterior infarct, age undetermined Abnormal ECG
== END 2017-04-16 17:28 | disposition home or self-care (01) ==
LOC: ED 15:05
DX: F10.129 Alcohol abuse with intoxication, unspecified (principal); I10 Essential (primary) hypertension; J44.9 Chronic obstructive pulmonary disease, unspecified; Z87.891 Personal history of nicotine dependence

== ENCOUNTER 2017-04-18 20:36 | Emergency (ER) | payer MEDICAID ==
[2017-04-18 20:37] VITALS: BMI 30.7
[2017-04-18 20:47] VITALS: TEMP 97.9
--- NOTE | 2017-04-18 22:25 | ED PDOC ---
Arrival/HPI - General Chief Complaint: Back Pain Time Seen by Provider: 04/18/17 21:19 Historian: Patient - Critical Care Narrative Critical Care (Text): 04/18/17 22:21 Pt is a 56 yo intoxicated M who presents to the ER for chest pain with limited history of onset and intensity. Pt was assessed 2 days prior for the same complaint, without any significant findings but was monitored until pt attained sobriety. Denies chest pain, sob, MIN, GIB. - History of Present Illness Time/Duration: Prior to Arrival Symptom Onset: Gradual Symptom Course: Unchanged Severity Level: 1 Activities at Onset: Rest, Light Context: Sitting, Standing, Walking Past Medical History - Provider Review Nursing Documentation Reviewed: Yes - Travel History Have you recently traveled outside [place] w/in the past 3 mons?: No - Past History Past History: No Previous - Infectious Disease Hx of Infectious Diseases: None - Tetanus Immunization Tetanus Immunization: Unknown - Cardiac Hx Cardiac Disorders: Yes - Pulmonary Hx Asthma: Yes Hx Chronic Obstructive Pulmonary Disease (COPD): Yes - Neurological Hx Neurological Disorder: No - HEENT Hx HEENT Disorder: No - Renal Hx Renal Disorder: No - Endocrine/Metabolic Hx Endocrine Disorders: No Hx Diabetes Mellitus Type 2: Yes - Hematological/Oncological Hx Blood Disorders: Yes Hx Anemia: Yes Hx Hepatitis C: No - Integumentary Hx Dermatological Disorder: No - Musculoskeletal/Rheumatological Hx Musculoskeletal Disorders: Yes Hx Back Pain: Yes Hx Falls: No - Gastrointestinal Hx Gastrointestinal Disorders: Yes Hx Gastritis: Yes Hx Gastroesophageal Reflux: Yes Hx Gastrointestinal Ulcer: Yes Hx Pancreatitis: Yes - Genitourinary/Gynecological Hx Genitourinary Disorders: No - Psychiatric Hx Psychophysiologic Disorder: Yes Hx Anxiety: Yes Hx Substance Use: No Other/Comment: alcohol abuse - Surgical History Other/Comment: orcchectomy, ventral and inguinal hernia repair - Anesthesia Hx Anesthesia: Yes Hx Anesthesia Reactions: No Hx Malignant Hyperthermia: No - Suicidal Assessment Feels Threatened In Home Enviroment: No Family/Social History - Physician Review Nursing Documentation Reviewed: Yes Family/Social History: No Known Family HX Smoking Status: Former Smoker Hx Alcohol Use: Yes Frequency of alcohol use: Daily Amount per day: 10 Hx Substance Use: No Hx Substance Use Treatment: No Allergies/Home Meds Allergies/Adverse Reactions: Allergies Penicillins Allergy (Mild, Verified 04/16/17 15:54) RASH Home Medications: Home Meds Medication Instructions Recorded Confirmed Famotidine [Pepcid] 1 tab PO DAILY 04/18/17 04/18/17 Folic Acid [Folic Acid] 1 tab PO DAILY 04/18/17 04/18/17 Thiamine HCl [Vitamin B-1] 1 tab PO DAILY 04/18/17 04/18/17 Review of Systems - Physician Review All systems were reviewed & negative as marked: Yes - Review of Systems Constitutional: Normal Eyes: Normal ENT: Normal Respiratory: Normal Cardiovascular: Normal Gastrointestinal: Normal Genitourinary Male: Normal Musculoskeletal: Normal Skin: Normal Neurological: Normal Endocrine: Normal Hemo/Lymphatic: Normal Psychiatric: Normal Physical Exam - Physical Exam Physical Exam Limitations: Intoxication Vital Signs Reviewed: Yes Vital Signs Temp Pulse Resp BP Pulse Ox 04/19/17 03:04 83 17 122/70 100 04/19/17 00:11 86 18 118/65 100 04/18/17 20:47 97.9 F 88 18 121/80 99 Temperature: Afebrile Blood Pressure: Normal Pulse: Regular Respiratory Rate: Normal Appearance: Positive for: Well-Appearing, Non-Toxic, Comfortable Pain Distress: None Mental Status: Positive for: Alert and Oriented X 3 - Systems Exam Head: Present: Atraumatic, Normocephalic Pupils: Present: PERRL Extroacular Muscles: Present: EOMI Conjunctiva: Present: Normal Mouth: Present: Moist Mucous Membranes Neck: Present: Normal Range of Motion Respiratory/Chest: Present: Clear to Auscultation, Good Air Exchange. No: Respiratory Distress, Accessory Muscle Use Cardiovascular: Present: Regular Rate and Rhythm, Normal S1, S2. No: Murmurs Abdomen: Present: Normal Bowel Sounds. No: Tenderness, Distention, Peritoneal Signs Back: Present: Normal Inspection Upper Extremity: Present: Normal Inspection. No: Cyanosis, Edema Lower Extremity: Present: Normal Inspection. No: Edema Neurological: Present: GCS=15, CN II-XII Intact, Speech Normal Skin: Present: Warm, Dry, Normal Color. No: Rashes Psychiatric: Present: Alert, Oriented x 3, Normal Insight, Normal Concentration Medical Decision Making ED Course and Treatment: 04/18/17 22:26 Pt is a 56 yo intoxicated M who presents to the ER for chest pain with limited history of onset and intensity. Pt is intoxicated and will be monitored until sober; will dispo when stable Re-evaluation Time: 01:08 (sleeping ) Reassessment Condition: Re-examined Disposition/Present on Arrival - Present on Arrival Any Indicators Present on Arrival: Yes History of DVT/PE: No History of Uncontrolled Diabetes: No Urinary Catheter: No History of Decub. Ulcer: No History Surgical Site Infection Following: None - Disposition Have Diagnosis and Disposition been Completed?: Yes Diagnosis: Intoxication, Alcohol abuse Disposition: HOME/ ROUTINE Disposition Time: 06:00 Patient Plan: Discharge Condition: IMPROVED Discharge Instructions (ExitCare): Alcohol Intoxication (ED) Additional Instructions: The emergency medical care you received today was directed at your acute symptoms. If you were prescribed any medication, please fill it and take as directed. It may take several days for your symptoms to resolve. Return to the Emergency Department if your symptoms worsen, do not improve, or if you have any other problems. Please contact your doctor or call one of the physicians/clinics you have been referred to that are listed on the Patient Visit Information form that is included in your discharge packet. Bring any paperwork you were given at discharge with you along with any medications you are taking to your follow up visit. Our treatment cannot replace ongoing medical care by a primary care provider (PCP) outside of the emergency department. Thank you for allowing the [facility] team to be part of your care today. Follow up with your doctor this week. Referrals: Chuy Desir MD [Primary Care Provider] - Follow up with primary
[2017-04-19 00:13] VITALS: O2SAT 100
[2017-04-19 03:06] VITALS: BP 122/70; PULSE 83; RESP 17
== END 2017-04-19 03:09 | disposition home or self-care (01) ==
LOC: ED 20:36
DX: F10.129 Alcohol abuse with intoxication, unspecified (principal); Y90.9 Presence of alcohol in blood, level not specified

== ENCOUNTER 2017-04-19 19:39 | Emergency (ER) | payer MEDICAID ==
[2017-04-19 19:41] VITALS: BMI 30.7
[2017-04-19 19:56] VITALS: BP 128/68; PULSE 88; RESP 18; TEMP 97.9; O2SAT 99
== END 2017-04-19 20:14 | disposition left against medical advice (07) ==
LOC: ED 19:39
DX: Z02.89 Encounter for other administrative examinations (principal); Z59.0 Homelessness

== ENCOUNTER 2017-04-19 20:49 | Emergency (ER) | payer MEDICAID ==
[2017-04-19 20:50] VITALS: BMI 30.7
--- NOTE | 2017-04-19 21:20 | ED PDOC ---
Arrival/HPI - General Historian: Patient <Ezequiel May - Last Filed: 04/20/17 03:09> <Heraclio Jordan - Last Filed: 04/20/17 06:01> - General Chief Complaint: Medical Clearance Time Seen by Provider: 04/19/17 21:12 - History of Present Illness Narrative History of Present Illness (Text): 04/19/17 21:13 56 y/o male, chronic intoxication patient from alcohol, biba, allergic to penicillin, here because he was found public intoxication x 1 hour. Pt. admits drinking tonight and prior to arrival, no fall or trauma, no head or neck pain, no dizziness, no abdominal or pelvic pain, no rash, no other medical or psychological complaints. (Ezequiel May) Past Medical History - Provider Review Nursing Documentation Reviewed: Yes - Past History Past History: No Previous - Infectious Disease Hx of Infectious Diseases: None - Tetanus Immunization Tetanus Immunization: Unknown - Cardiac Hx Cardiac Disorders: Yes - Pulmonary Hx Asthma: Yes Hx Chronic Obstructive Pulmonary Disease (COPD): Yes - Neurological Hx Neurological Disorder: No - HEENT Hx HEENT Disorder: No - Renal Hx Renal Disorder: No - Endocrine/Metabolic Hx Endocrine Disorders: No Hx Diabetes Mellitus Type 2: Yes - Hematological/Oncological Hx Blood Disorders: Yes Hx Anemia: Yes Hx Hepatitis C: No - Integumentary Hx Dermatological Disorder: No - Musculoskeletal/Rheumatological Hx Musculoskeletal Disorders: Yes Hx Back Pain: Yes Hx Falls: No - Gastrointestinal Hx Gastrointestinal Disorders: Yes Hx Gastritis: Yes Hx Gastroesophageal Reflux: Yes Hx Gastrointestinal Ulcer: Yes Hx Pancreatitis: Yes - Genitourinary/Gynecological Hx Genitourinary Disorders: No - Psychiatric Hx Psychophysiologic Disorder: Yes Hx Anxiety: Yes Hx Substance Use: No Other/Comment: alcohol abuse - Surgical History Other/Comment: orcchectomy, ventral and inguinal hernia repair - Anesthesia Hx Anesthesia: Yes Hx Anesthesia Reactions: No Hx Malignant Hyperthermia: No - Suicidal Assessment Feels Threatened In Home Enviroment: No <Ezequiel May - Last Filed: 04/20/17 03:09> Family/Social History - Physician Review Nursing Documentation Reviewed: Yes Family/Social History: Unknown Family HX Smoking Status: Former Smoker Hx Alcohol Use: Yes Amount per day: 10 Hx Substance Use: No Hx Substance Use Treatment: No <Ezequiel May - Last Filed: 04/20/17 03:09> Allergies/Home Meds <Ezequiel May - Last Filed: 04/20/17 03:09> <Heraclio Jordan - Last Filed: 04/20/17 06:01> Allergies/Adverse Reactions: Allergies Penicillins Allergy (Mild, Verified 04/16/17 15:54) RASH Home Medications: Home Meds Medication Instructions Recorded Confirmed Famotidine [Pepcid] 1 tab PO DAILY 04/18/17 04/19/17 Folic Acid [Folic Acid] 1 tab PO DAILY 04/18/17 04/19/17 Thiamine HCl [Vitamin B-1] 1 tab PO DAILY 04/18/17 04/19/17 Review of Systems - Review of Systems Constitutional: absent: Fatigue, Fevers Eyes: absent: Vision Changes ENT: absent: Hearing Changes Respiratory: absent: SOB, Cough Cardiovascular: absent: Chest Pain Gastrointestinal: absent: Abdominal Pain, Nausea, Vomiting Musculoskeletal: absent: Arthralgias, Joint Swelling, Myalgias Skin: absent: Rash, Pruritis Neurological: absent: Headache, Dizziness Psychiatric: absent: Anxiety, Depression, Suicidal Ideation <Ezequiel May - Last Filed: 04/20/17 03:09> Physical Exam Vital Signs Reviewed: Yes Temperature: Afebrile Blood Pressure: Normal Pulse: Regular Respiratory Rate: Normal Appearance: Positive for: Well-Appearing, Non-Toxic, Comfortable Pain Distress: None - Systems Exam Head: Present: Atraumatic, Normocephalic. No: Tenderness, Contusion, Swelling, Ecchymosis, Abrasion, Laceration, Other Pupils: Present: PERRL Extroacular Muscles: Present: EOMI Conjunctiva: Present: Normal Mouth: Present: Moist Mucous Membranes Nose (External): Present: Atraumatic. No: Abrasion, Contusion, Laceration, Lesions Nose (Internal): Present: Normal Inspection, No Active Bleeding. No: Rhinorrhea , Septal Hematoma, Epistaxis Neck: Present: Normal Range of Motion, Trachea Midline. No: Meningeal Signs, MIDLINE TENDERNESS, Paraspinal Tenderness, Lymphadenopathy Respiratory/Chest: Present: Clear to Auscultation, Good Air Exchange. No: Respiratory Distress, Accessory Muscle Use Cardiovascular: Present: Regular Rate and Rhythm, Normal S1, S2. No: Murmurs Abdomen: Present: Normal Bowel Sounds. No: Tenderness, Distention, Peritoneal Signs, Rebound, Guarding Back: Present: Normal Inspection Upper Extremity: Present: Normal Inspection, Normal ROM. No: Cyanosis, Edema, Tenderness, Swelling Lower Extremity: Present: Normal Inspection, Normal ROM. No: Edema, Tenderness , Swelling Neurological: Present: GCS=15, Speech Normal, Motor Func Grossly Intact, Memory Normal Skin: Present: Warm, Dry, Normal Color. No: Rashes Psychiatric: Present: Alert, Oriented x 3, Normal Insight, Normal Concentration <Ezequiel May - Last Filed: 04/20/17 03:09> Vital Signs Temp Pulse Resp BP Pulse Ox 04/20/17 04:00 97.9 F 86 19 138/72 99 04/20/17 02:00 97.6 F 76 18 134/71 100 04/20/17 00:50 97.9 F 76 18 128/70 100 04/19/17 22:50 97.6 F 80 16 130/75 100 04/19/17 20:56 98.4 F 92 H 18 138/76 99 Medical Decision Making <Ezequiel May - Last Filed: 04/20/17 03:09> <Heraclio Jordan - Last Filed: 04/20/17 06:01> ED Course and Treatment: 04/19/17 21:21 -FS -Observe until sober and reassess 04/19/17 21:33 -FS 146 04/20/17 03:00 -Pt. is sleeping well, easily arousable and calm -Case discussed and endorsed to the ER attending Dr. Jordan, discussed about the case, will reassess and dispo the patient. (Ezequiel May) - PA / COMPUTER REPAIRER / Resident Statement [facility]TON has reviewed & agrees with the documentation as recorded. <Ezequiel May - Last Filed: 04/20/17 03:09> - PA / COMPUTER REPAIRER / Resident Statement [facility]TON has reviewed & agrees with the documentation as recorded. [facility] has examined the patient and agrees with the treatment plan. <Heraclio Jordan - Last Filed: 04/20/17 06:01> Disposition/Present on Arrival - Present on Arrival Any Indicators Present on Arrival: No History of DVT/PE: No History of Uncontrolled Diabetes: No Urinary Catheter: No History of Decub. Ulcer: No History Surgical Site Infection Following: None - Disposition Have Diagnosis and Disposition been Completed?: Yes Disposition Time: 03:09 <Ezequiel May - Last Filed: 04/20/17 03:09> - Present on Arrival Any Indicators Present on Arrival: No - Disposition Have Diagnosis and Disposition been Completed?: Yes Disposition Time: 06:01 Patient Plan: Discharge <Heraclio Jordan - Last Filed: 04/20/17 06:01> - Disposition Diagnosis: Alcohol intoxication Disposition: HOME/ ROUTINE Patient Problems: Current Active Problems Problem Status Onset Alcohol intoxication Acute Condition: STABLE Discharge Instructions (ExitCare): Alcohol Intoxication (ED) Referrals: Tommie Alexander MD [Primary Care Provider] - Follow up with primary Alcoholics Anonymous [Outside] - Follow up with primary Forms: [employer] ([place])
[2017-04-20 04:48] VITALS: TEMP 97.9; O2SAT 99
[2017-04-20 06:06] VITALS: BP 130/83; PULSE 88; RESP 16
== END 2017-04-20 06:04 | disposition home or self-care (01) ==
LOC: ED 20:49
DX: F10.129 Alcohol abuse with intoxication, unspecified (principal); Y90.9 Presence of alcohol in blood, level not specified; E11.9 Type 2 diabetes mellitus without complications

== ENCOUNTER 2017-04-20 23:57 | Emergency (ER) | payer MEDICAID ==
[2017-04-20 23:58] VITALS: BMI 30.7
[2017-04-21 00:21] VITALS: TEMP 98.5
--- NOTE | 2017-04-21 00:42 | ED PDOC ---
Arrival/HPI - General Historian: Patient <Ezequiel May - Last Filed: 04/21/17 00:44> <Heraclio Jordan - Last Filed: 04/21/17 06:03> - General Chief Complaint: Medical Clearance Time Seen by Provider: 04/21/17 00:23 - History of Present Illness Narrative History of Present Illness (Text): 04/21/17 00:23 56 y/o male, FS 167, biba for etoh intoxication in the public and need a place to sleep tonight with no other medical or psychological complaints. Pt. has no chest pain or palpitation, no rash or night sweat, no dizziness, no abdominal or pelvic pain, no other medical or psychological complaints. (Ezequiel May) Past Medical History - Provider Review Nursing Documentation Reviewed: Yes - Past History Past History: No Previous - Infectious Disease Hx of Infectious Diseases: None - Tetanus Immunization Tetanus Immunization: Unknown - Cardiac Hx Cardiac Disorders: Yes - Pulmonary Hx Asthma: Yes Hx Chronic Obstructive Pulmonary Disease (COPD): Yes - Neurological Hx Neurological Disorder: No - HEENT Hx HEENT Disorder: No - Renal Hx Renal Disorder: No - Endocrine/Metabolic Hx Endocrine Disorders: No Hx Diabetes Mellitus Type 2: Yes - Hematological/Oncological Hx Blood Disorders: Yes Hx Anemia: Yes Hx Hepatitis C: No - Integumentary Hx Dermatological Disorder: No - Musculoskeletal/Rheumatological Hx Musculoskeletal Disorders: Yes Hx Back Pain: Yes Hx Falls: No - Gastrointestinal Hx Gastrointestinal Disorders: Yes Hx Gastritis: Yes Hx Gastroesophageal Reflux: Yes Hx Gastrointestinal Ulcer: Yes Hx Pancreatitis: Yes - Genitourinary/Gynecological Hx Genitourinary Disorders: No - Psychiatric Hx Psychophysiologic Disorder: Yes Hx Anxiety: Yes Hx Substance Use: No Other/Comment: alcohol abuse - Surgical History Other/Comment: orcchectomy, ventral and inguinal hernia repair - Anesthesia Hx Anesthesia: Yes Hx Anesthesia Reactions: No Hx Malignant Hyperthermia: No - Suicidal Assessment Feels Threatened In Home Enviroment: No <Ezequiel May - Last Filed: 04/21/17 00:44> Family/Social History - Physician Review Nursing Documentation Reviewed: Yes Family/Social History: Unknown Family HX Smoking Status: Former Smoker Hx Alcohol Use: Yes Amount per day: 10 Hx Substance Use: No Hx Substance Use Treatment: No <Ezequiel May - Last Filed: 04/21/17 00:44> Allergies/Home Meds <Ezequiel May - Last Filed: 04/21/17 00:44> <Heraclio Jordan - Last Filed: 04/21/17 06:03> Allergies/Adverse Reactions: Allergies Penicillins Allergy (Mild, Verified 04/16/17 15:54) RASH Home Medications: Home Meds Medication Instructions Recorded Confirmed Famotidine [Pepcid] 1 tab PO DAILY 04/18/17 04/19/17 Folic Acid [Folic Acid] 1 tab PO DAILY 04/18/17 04/19/17 Thiamine HCl [Vitamin B-1] 1 tab PO DAILY 04/18/17 04/19/17 Review of Systems - Review of Systems Systems not reviewed;Unavailable: Intoxicated Constitutional: absent: Fatigue Eyes: absent: Vision Changes Respiratory: absent: SOB, Cough, Sputum, Wheezing Cardiovascular: absent: Chest Pain, Palpitations Gastrointestinal: absent: Abdominal Pain, Diarrhea, Nausea, Vomiting Musculoskeletal: absent: Arthralgias, Back Pain Skin: absent: Rash, Pruritis Neurological: absent: Headache, Dizziness, Seizure Psychiatric: absent: Anxiety, Depression, Suicidal Ideation <Ezequiel May - Last Filed: 04/21/17 00:44> Physical Exam Vital Signs Reviewed: Yes Temperature: Afebrile Blood Pressure: Normal Pulse: Tachycardic Respiratory Rate: Normal Appearance: Positive for: Well-Appearing, Non-Toxic, Comfortable Pain Distress: None Mental Status: Positive for: Alert and Oriented X 3 - Systems Exam Head: Present: Atraumatic, Normocephalic. No: Tenderness, Contusion, Swelling, Ecchymosis, Abrasion, Laceration, Other Pupils: Present: PERRL Extroacular Muscles: Present: EOMI Conjunctiva: Present: Normal Mouth: Present: Moist Mucous Membranes Neck: Present: Normal Range of Motion, Trachea Midline. No: Meningeal Signs, MIDLINE TENDERNESS, Paraspinal Tenderness, Lymphadenopathy Respiratory/Chest: Present: Clear to Auscultation, Good Air Exchange. No: Respiratory Distress, Accessory Muscle Use Cardiovascular: Present: Regular Rate and Rhythm, Normal S1, S2. No: Murmurs Abdomen: Present: Normal Bowel Sounds. No: Tenderness, Distention, Peritoneal Signs, Rebound, Guarding Back: Present: Normal Inspection Upper Extremity: Present: Normal Inspection, Normal ROM. No: Cyanosis, Edema, Tenderness, Swelling, Deformity Lower Extremity: Present: Normal Inspection, Normal ROM, Neurovascularly Intact , Capillary Refill < 2 s. No: Edema, Tenderness, Swelling, Deformity Neurological: Present: GCS=15, Speech Normal, Motor Func Grossly Intact, Gait Normal, Memory Normal Skin: Present: Warm, Dry, Normal Color. No: Rashes Psychiatric: Present: Alert, Oriented x 3, Normal Insight, Normal Concentration <zEequiel May - Last Filed: 04/21/17 00:44> Vital Signs Temp Pulse Resp BP Pulse Ox 04/21/17 04:20 93 H 18 122/68 99 04/21/17 00:19 98.5 F 105 H 20 113/78 98 Medical Decision Making <Ezequiel May - Last Filed: 04/21/17 00:44> <Heraclio Jordan - Last Filed: 04/21/17 06:03> ED Course and Treatment: 04/21/17 00:46 -Observe and reassess 04/21/17 02:00 -Case discussed and endorsed to the ER attending Dr. Jordan, he will re- evaluate and dispo the patient. (Ezequiel May) 04/21/17 06:01 Pt awake, alert, ambulating with steady gait. Clinically sober. Pt stable for d/ c. (Heraclio Jordan) - Lab Interpretations Lab Results: Lab Results 04/21/17 00:31: POC Glucose (mg/dL) 167 H - PA / PROJECT DEVELOPMENT MANAGER / Resident Statement LAYTON has reviewed & agrees with the documentation as recorded. <Ezequiel May - Last Filed: 04/21/17 00:44> - PA / PROJECT DEVELOPMENT MANAGER / Resident Statement LAYTON has reviewed & agrees with the documentation as recorded. LAYTON has examined the patient and agrees with the treatment plan. <Heraclio Jordan - Last Filed: 04/21/17 06:03> Disposition/Present on Arrival - Present on Arrival Any Indicators Present on Arrival: No History of DVT/PE: No History of Uncontrolled Diabetes: No Urinary Catheter: No History of Decub. Ulcer: No History Surgical Site Infection Following: None - Disposition Have Diagnosis and Disposition been Completed?: Yes Disposition Time: 02:00 <Ezequiel May - Last Filed: 04/21/17 00:44> - Present on Arrival Any Indicators Present on Arrival: No - Disposition Have Diagnosis and Disposition been Completed?: Yes Disposition Time: 06:02 Patient Plan: Discharge <Heraclio Jordan - Last Filed: 04/21/17 06:03> - Disposition Diagnosis: Alcohol intoxication Disposition: HOME/ ROUTINE Patient Problems: Current Active Problems Problem Status Onset Alcohol intoxication Acute Condition: GOOD Referrals: Chuy Desir MD [Primary Care Provider] - Follow up with primary Forms: [employer] (Guyanese)
[2017-04-21 06:05] VITALS: BP 127/73; PULSE 83; RESP 17; O2SAT 96
== END 2017-04-21 06:04 | disposition home or self-care (01) ==
LOC: ED 23:57
DX: F10.129 Alcohol abuse with intoxication, unspecified (principal); Y90.9 Presence of alcohol in blood, level not specified; E11.9 Type 2 diabetes mellitus without complications

== ENCOUNTER 2017-04-21 23:00 | Emergency (ER) | payer MEDICAID ==
[2017-04-21 23:01] VITALS: BMI 30.7
== END 2017-04-22 03:14 | disposition left against medical advice (07) ==
LOC: ED 23:00
DX: Z02.89 Encounter for other administrative examinations (principal); F10.10 Alcohol abuse, uncomplicated

== ENCOUNTER 2017-04-23 18:10 | Emergency (ER) | payer MEDICAID ==
[2017-04-23 18:10] VITALS: BMI 30.7
== END 2017-04-23 19:30 | disposition left against medical advice (07) ==
LOC: ED 18:10
DX: Z02.89 Encounter for other administrative examinations (principal); R06.02 Shortness of breath

== ENCOUNTER 2017-04-29 18:48 | Emergency (ER) | payer MEDICAID ==
[2017-04-29 18:48] VITALS: BMI 30.7
--- NOTE | 2017-04-29 19:52 | ED PDOC ---
Arrival/HPI - General Chief Complaint: Chest Pain Time Seen by Provider: 04/29/17 19:35 Historian: Patient - History of Present Illness Narrative History of Present Illness (Text): 04/29/17 19:48 A 56 year old male presents to the emergency department requesting retirement. Patient reports the warming centers are closed and he is looking for a place to spend the night. Contrary to triage patent denies any "chest pain" upon assessment. Patient denies any fever, chills, nausea vomiting, abdominal pain, back pain, shortness of breath or any other complaints at this time. Past Medical History - Provider Review Nursing Documentation Reviewed: Yes - Past History Past History: No Previous - Infectious Disease Hx of Infectious Diseases: None - Tetanus Immunization Tetanus Immunization: Unknown - Cardiac Hx Cardiac Disorders: Yes - Pulmonary Hx Asthma: Yes Hx Chronic Obstructive Pulmonary Disease (COPD): Yes - Neurological Hx Neurological Disorder: No - HEENT Hx HEENT Disorder: No - Renal Hx Renal Disorder: No - Endocrine/Metabolic Hx Endocrine Disorders: No Hx Diabetes Mellitus Type 2: Yes - Hematological/Oncological Hx Blood Disorders: Yes Hx Anemia: Yes Hx Hepatitis C: No - Integumentary Hx Dermatological Disorder: No - Musculoskeletal/Rheumatological Hx Musculoskeletal Disorders: Yes Hx Back Pain: Yes Hx Falls: No - Gastrointestinal Hx Gastrointestinal Disorders: Yes Hx Gastritis: Yes Hx Gastroesophageal Reflux: Yes Hx Gastrointestinal Ulcer: Yes Hx Pancreatitis: Yes - Genitourinary/Gynecological Hx Genitourinary Disorders: No - Psychiatric Hx Psychophysiologic Disorder: Yes Hx Anxiety: Yes Hx Substance Use: No Other/Comment: alcohol abuse - Surgical History Other/Comment: orcchectomy, ventral and inguinal hernia repair - Anesthesia Hx Anesthesia: Yes Hx Anesthesia Reactions: No Hx Malignant Hyperthermia: No - Suicidal Assessment Feels Threatened In Home Enviroment: No Family/Social History - Physician Review Nursing Documentation Reviewed: Yes Family/Social History: No Known Family HX Smoking Status: Former Smoker Hx Alcohol Use: Yes Amount per day: 10 Hx Substance Use: No Hx Substance Use Treatment: No Allergies/Home Meds Allergies/Adverse Reactions: Allergies Penicillins Allergy (Mild, Verified 04/30/17 03:04) RASH Home Medications: Home Meds Medication Instructions Recorded Confirmed Famotidine [Pepcid] 1 tab PO DAILY 04/18/17 04/30/17 Folic Acid [Folic Acid] 1 tab PO DAILY 04/18/17 04/30/17 Thiamine HCl [Vitamin B-1] 1 tab PO DAILY 04/18/17 04/30/17 Review of Systems - Physician Review All systems were reviewed & negative as marked: Yes - Review of Systems Constitutional: Normal. absent: Fevers, Night Sweats Eyes: Normal ENT: Normal Respiratory: Normal. absent: SOB Cardiovascular: Normal. absent: Chest Pain Gastrointestinal: Normal. absent: Abdominal Pain, Nausea, Vomiting Genitourinary Male: Normal Musculoskeletal: Normal. absent: Back Pain Skin: Normal Neurological: Normal Endocrine: Normal Hemo/Lymphatic: Normal Psychiatric: Normal Physical Exam Vital Signs Reviewed: Yes Vital Signs Temp Pulse Resp BP Pulse Ox 04/30/17 06:09 98.1 F 78 17 132/82 98 04/29/17 19:31 98 F 71 18 138/75 99 Temperature: Afebrile Blood Pressure: Normal Pulse: Regular Respiratory Rate: Normal Appearance: Positive for: Well-Appearing, Non-Toxic, Comfortable Pain Distress: None Mental Status: Positive for: Alert and Oriented X 3 - Systems Exam Head: Present: Atraumatic, Normocephalic Pupils: Present: PERRL Extroacular Muscles: Present: EOMI Conjunctiva: Present: Normal Mouth: Present: Moist Mucous Membranes Neck: Present: Normal Range of Motion Respiratory/Chest: Present: Clear to Auscultation, Good Air Exchange. No: Respiratory Distress, Accessory Muscle Use Cardiovascular: Present: Regular Rate and Rhythm, Normal S1, S2. No: Murmurs Abdomen: Present: Normal Bowel Sounds. No: Tenderness, Distention, Peritoneal Signs Back: Present: Normal Inspection Upper Extremity: Present: Normal Inspection. No: Cyanosis, Edema Lower Extremity: Present: Normal Inspection. No: Edema Neurological: Present: GCS=15, CN II-XII Intact, Speech Normal Skin: Present: Warm, Dry, Normal Color. No: Rashes Psychiatric: Present: Alert, Oriented x 3, Normal Insight, Normal Concentration Medical Decision Making ED Course and Treatment: 04/29/17 19:48 Impression: A 56 year old male presents requesting retirement. Patient denies any complaints at this time. Progress Notes: EKG shows NSR at [address]/T changes. Interpreted by me. 04/30/17 05:58 On re-evaluation, patient feels better and is in no acute distress. I have discussed the results and plan with the patient, who expresses understanding. Patient in agreement with plan to be discharged home. Patient is stable for discharge. Patient was instructed to follow up with physician or return if symptoms worsen or new concerning symptoms arise. 04/30/17 15:29 pt observed sleeping during entire ed course in [facility]. ambulated out of er in am in [facility]. - Lab Interpretations Lab Results: Lab Results 04/29/17 21:54: POC Glucose (mg/dL) 119 H Disposition/Present on Arrival - Present on Arrival Any Indicators Present on Arrival: No History of DVT/PE: No History of Uncontrolled Diabetes: No Urinary Catheter: No History of Decub. Ulcer: No History Surgical Site Infection Following: None - Disposition Have Diagnosis and Disposition been Completed?: Yes Diagnosis: Homelessness Disposition: HOME/ ROUTINE Disposition Time: 07:00 Condition: STABLE Additional Instructions: return to er with worsening symptoms or concerns. Forms: [employer] (Kazakh)
[2017-04-30 06:12] VITALS: BP 132/82; PULSE 78; RESP 17; TEMP 98.1; O2SAT 98
--- NOTE | 2017-04-30 16:20 | CARD ---
APPROVED REPORT EKG Measurement Heart [id number] OR [id number] [id number] <Conclusion> Normal sinus rhythm Possible Anterior infarct, age undetermined Abnormal ECG
== END 2017-04-30 06:13 | disposition home or self-care (01) ==
LOC: ED 18:48
DX: Z59.0 Homelessness (principal); E11.9 Type 2 diabetes mellitus without complications; Z87.891 Personal history of nicotine dependence

== ENCOUNTER 2017-05-06 21:55 | Emergency (ER) | payer MEDICAID ==
[2017-05-06 21:56] VITALS: BMI 30.7
[2017-05-06 23:45] VITALS: TEMP 97.7
--- NOTE | 2017-05-07 02:04 | ED PDOC ---
Arrival/HPI - General Chief Complaint: Back Pain Time Seen by Provider: 05/07/17 02:03 Historian: Patient - History of Present Illness Narrative History of Present Illness (Text): 05/07/17 02:04 Travis Royal is a 56 year old male, whose past medical history includes alcohol abuse, who presents to the emergency department complaining of lower back discomfort. Patient states he pulled a back muscle with an awkward movement. Patient denies any numbness/weakness/tingling of the extremities, chest pain, shortness of breath, nausea, vomiting, diarrhea, neck pain, headache, dizziness or any other complaints. Patient able to ambulate without difficulty. Time/Duration: Other (tonight) Symptom Onset: Gradual Symptom Course: Unchanged Activities at Onset: Light Context: Other (awkward movement) Past Medical History - Provider Review Nursing Documentation Reviewed: Yes - Past History Past History: No Previous - Infectious Disease Hx of Infectious Diseases: None - Tetanus Immunization Tetanus Immunization: Unknown - Cardiac Hx Cardiac Disorders: Yes - Pulmonary Hx Asthma: Yes Hx Chronic Obstructive Pulmonary Disease (COPD): Yes - Neurological Hx Neurological Disorder: No - HEENT Hx HEENT Disorder: No - Renal Hx Renal Disorder: No - Endocrine/Metabolic Hx Endocrine Disorders: No Hx Diabetes Mellitus Type 2: Yes - Hematological/Oncological Hx Blood Disorders: Yes Hx Anemia: Yes Hx Hepatitis C: No - Integumentary Hx Dermatological Disorder: No - Musculoskeletal/Rheumatological Hx Musculoskeletal Disorders: Yes Hx Back Pain: Yes Hx Falls: No - Gastrointestinal Hx Gastrointestinal Disorders: Yes Hx Gastritis: Yes Hx Gastroesophageal Reflux: Yes Hx Gastrointestinal Ulcer: Yes Hx Pancreatitis: Yes - Genitourinary/Gynecological Hx Genitourinary Disorders: No - Psychiatric Hx Psychophysiologic Disorder: Yes Hx Anxiety: Yes Hx Substance Use: No Other/Comment: alcohol abuse - Surgical History Other/Comment: orcchectomy, ventral and inguinal hernia repair - Anesthesia Hx Anesthesia: Yes Hx Anesthesia Reactions: No Hx Malignant Hyperthermia: No - Suicidal Assessment Feels Threatened In Home Enviroment: No Family/Social History - Physician Review Nursing Documentation Reviewed: Yes Family/Social History: Unknown Family HX Smoking Status: Former Smoker Hx Alcohol Use: Yes Amount per day: 10 Hx Substance Use: No Hx Substance Use Treatment: No Allergies/Home Meds Allergies/Adverse Reactions: Allergies Penicillins Allergy (Mild, Verified 04/30/17 03:04) RASH Home Medications: Home Meds Medication Instructions Recorded Confirmed No Known Home Med 05/07/17 05/07/17 Review of Systems - Physician Review All systems were reviewed & negative as marked: Yes - Review of Systems Constitutional: Normal Eyes: Normal ENT: Normal Respiratory: Normal. absent: SOB, Cough Cardiovascular: Normal. absent: Chest Pain, Palpitations Gastrointestinal: Normal. absent: Abdominal Pain, Diarrhea, Nausea, Vomiting Genitourinary Male: Normal. absent: Dysuria, Frequency, Hematuria, Urinary Output Changes Musculoskeletal: Back Pain (lower back discomfort). absent: Neck Pain Skin: Normal. absent: Rash Neurological: Normal. absent: Headache, Dizziness, Focal Weakness Endocrine: Normal Hemo/Lymphatic: Normal Psychiatric: Normal Physical Exam Vital Signs Reviewed: Yes Vital Signs Temp Pulse Resp BP Pulse Ox 05/06/17 23:43 97.7 F 81 17 137/71 97 Temperature: Afebrile Blood Pressure: Normal Pulse: Regular Respiratory Rate: Normal Appearance: Positive for: Well-Appearing, Non-Toxic, Comfortable Pain Distress: None Mental Status: Positive for: Alert and Oriented X 3 - Systems Exam Head: Present: Atraumatic, Normocephalic Pupils: Present: PERRL Extroacular Muscles: Present: EOMI Conjunctiva: Present: Normal Mouth: Present: Moist Mucous Membranes Neck: Present: Normal Range of Motion. No: Meningeal Signs, MIDLINE TENDERNESS , Paraspinal Tenderness Respiratory/Chest: Present: Clear to Auscultation, Good Air Exchange. No: Respiratory Distress, Accessory Muscle Use Cardiovascular: Present: Regular Rate and Rhythm, Normal S1, S2. No: Murmurs Abdomen: Present: Normal Bowel Sounds. No: Tenderness, Distention, Peritoneal Signs Back: Present: Normal Inspection. No: CVA Tenderness, Midline Tenderness, Paraspinal Tenderness Upper Extremity: Present: Normal Inspection. No: Cyanosis, Edema Lower Extremity: Present: Normal Inspection. No: Edema Neurological: Present: GCS=15, CN II-XII Intact, Speech Normal Skin: Present: Warm, Dry, Normal Color. No: Rashes Psychiatric: Present: Alert, Oriented x 3, Normal Insight, Normal Concentration Medical Decision Making ED Course and Treatment: 05/07/17 02:04 Impression: 56 year old male presents to the emergency department with lower back discomfort. Plan: -- Motrin -- Reassess and disposition Progress Notes: 05/07/17 03:44 On re-evaluation, patient feels better and is in no acute distress. I have discussed the results and plan with the patient, who expresses understanding. Patient in agreement with plan to be discharged home. Patient is stable for discharge. Patient was instructed to follow up with physician or return if symptoms worsen or new concerning symptoms arise. - Medication Orders Current Medication Orders: Discontinued Medications Ibuprofen (Motrin Tab) 600 mg PO STAT STA Stop: 05/07/17 02:25 Last Admin: 05/07/17 03:05 Dose: 600 mg MAR Pain/Vitals Document 05/07/17 03:05 RD (Rec: 05/07/17 03:05 RD [id number]) Pain Reassessment Is This A Pain ReAssessment? No Sleep Is patient sleeping during reassessment? No Presence of Pain Presence of Pain Yes - Scribe Statement The provider has reviewed the documentation as recorded by the [facility] training under Deborah Kaiser All medical record entries made by the Scribe were at my direction and personally dictated by me. I have reviewed the chart and agree that the record accurately reflects my personal performance of the history, physical exam, medical decision making, and the department course for this patient. I have also personally directed, reviewed, and agree with the discharge instructions and disposition. Disposition/Present on Arrival - Present on Arrival Any Indicators Present on Arrival: No History of DVT/PE: No History of Uncontrolled Diabetes: No Urinary Catheter: No History of Decub. Ulcer: No History Surgical Site Infection Following: None - Disposition Have Diagnosis and Disposition been Completed?: Yes Diagnosis: Back strain Disposition: HOME/ ROUTINE Disposition Time: 03:40 Patient Plan: Discharge Patient Problems: Current Active Problems Problem Status Onset Back strain Acute Condition: STABLE Discharge Instructions (ExitCare): Muscle Strain (ED) Additional Instructions: Rest/no strenuous physical activity/Advil as directed/follow up with your doctor this week Referrals: Chuy Desir MD [Primary Care Provider] - Follow up with primary Forms: [employer] (Lithuanian)
[2017-05-07 04:19] VITALS: BP 132/70; PULSE 89; RESP 18; O2SAT 98
== END 2017-05-07 04:13 | disposition home or self-care (01) ==
LOC: ED 21:55
DX: S39.012A Strain of muscle, fascia and tendon of lower back, initial encounter (principal); X50.1XXA Overexertion from prolonged static or awkward postures, initial encounter; Y92.9 Unspecified place or not applicable

== ENCOUNTER 2017-05-07 19:53 | Emergency (ER) | payer MEDICAID ==
[2017-05-07 19:53] VITALS: BMI 30.7
[2017-05-07 20:12] VITALS: TEMP 98.4
--- NOTE | 2017-05-07 22:20 | ED PDOC ---
Arrival/HPI - General Chief Complaint: Alcohol Ingestion Time Seen by Provider: 05/07/17 20:43 Historian: Patient - History of Present Illness Narrative History of Present Illness (Text): 05/07/17 22:17 Travis Royal is a 56 year old male, with a past medical history of alcohol abuse , who presents to the emergency department via EMS for public intoxication. Patient is also complaining of back pain. Patient admits to drinking alcohol tonight. Patient denies any fever, chills, chest pain, shortness of breath, nausea, vomiting, diarrhea, neck pain, headache, dizziness, or any other complaints. Time/Duration: Prior to Arrival Symptom Onset: Gradual Symptom Course: Unchanged Activities at Onset: Light Context: Home Past Medical History - Provider Review Nursing Documentation Reviewed: Yes - Past History Past History: No Previous - Infectious Disease Hx of Infectious Diseases: None - Tetanus Immunization Tetanus Immunization: Unknown - Cardiac Hx Cardiac Disorders: Yes - Pulmonary Hx Asthma: Yes Hx Chronic Obstructive Pulmonary Disease (COPD): Yes - Neurological Hx Neurological Disorder: No - HEENT Hx HEENT Disorder: No - Renal Hx Renal Disorder: No - Endocrine/Metabolic Hx Endocrine Disorders: No Hx Diabetes Mellitus Type 2: Yes - Hematological/Oncological Hx Blood Disorders: Yes Hx Anemia: Yes Hx Hepatitis C: No - Integumentary Hx Dermatological Disorder: No - Musculoskeletal/Rheumatological Hx Musculoskeletal Disorders: Yes Hx Back Pain: Yes Hx Falls: No - Gastrointestinal Hx Gastrointestinal Disorders: Yes Hx Gastritis: Yes Hx Gastroesophageal Reflux: Yes Hx Gastrointestinal Ulcer: Yes Hx Pancreatitis: Yes - Genitourinary/Gynecological Hx Genitourinary Disorders: No - Psychiatric Hx Psychophysiologic Disorder: Yes Hx Anxiety: Yes Hx Substance Use: No Other/Comment: alcohol abuse - Surgical History Other/Comment: orcchectomy, ventral and inguinal hernia repair - Anesthesia Hx Anesthesia: Yes Hx Anesthesia Reactions: No Hx Malignant Hyperthermia: No - Suicidal Assessment Feels Threatened In Home Enviroment: No Family/Social History - Physician Review Nursing Documentation Reviewed: Yes Family/Social History: Unknown Family HX Smoking Status: Former Smoker Hx Alcohol Use: Yes Amount per day: 10 Hx Substance Use: No Hx Substance Use Treatment: No Allergies/Home Meds Allergies/Adverse Reactions: Allergies Penicillins Allergy (Mild, Verified 04/30/17 03:04) RASH Home Medications: Home Meds Medication Instructions Recorded Confirmed Unobtainable 05/08/17 05/08/17 Review of Systems - Physician Review All systems were reviewed & negative as marked: Yes - Review of Systems Constitutional: Normal Eyes: Normal ENT: Normal Respiratory: Normal. absent: SOB, Cough Cardiovascular: Normal. absent: Chest Pain Gastrointestinal: Normal. absent: Abdominal Pain, Diarrhea, Nausea, Vomiting Genitourinary Male: Normal Musculoskeletal: Back Pain. absent: Neck Pain Skin: Normal. absent: Rash Neurological: Normal. absent: Headache, Dizziness Endocrine: Normal Hemo/Lymphatic: Normal Psychiatric: Normal Physical Exam Vital Signs Reviewed: Yes Vital Signs Temp Pulse Resp BP Pulse Ox 05/08/17 03:17 94 H 18 142/94 H 100 05/07/17 23:53 85 18 132/82 100 05/07/17 20:09 98.4 F 90 16 139/86 97 Temperature: Afebrile Blood Pressure: Normal Pulse: Regular Respiratory Rate: Normal Appearance: Positive for: Well-Appearing, Non-Toxic, Comfortable Pain Distress: None Mental Status: Positive for: Alert and Oriented X 3 - Systems Exam Head: Present: Atraumatic, Normocephalic Pupils: Present: PERRL Extroacular Muscles: Present: EOMI Conjunctiva: Present: Normal Mouth: Present: Moist Mucous Membranes Neck: Present: Normal Range of Motion Respiratory/Chest: Present: Clear to Auscultation, Good Air Exchange. No: Respiratory Distress, Accessory Muscle Use Cardiovascular: Present: Regular Rate and Rhythm, Normal S1, S2. No: Murmurs Abdomen: Present: Normal Bowel Sounds. No: Tenderness, Distention, Peritoneal Signs Back: Present: Normal Inspection Upper Extremity: Present: Normal Inspection. No: Cyanosis, Edema Lower Extremity: Present: Normal Inspection. No: Edema, CALF TENDERNESS Neurological: Present: GCS=15, CN II-XII Intact, Speech Normal Skin: Present: Warm, Dry, Normal Color. No: Rashes Psychiatric: Present: Alert, Oriented x 3, Intoxicated Medical Decision Making ED Course and Treatment: 05/07/17 22:22 Impression: 56 year old male presents to the emergency department via EMS complaining of back pain and alcohol intoxication. Differential Diagnosis included but are not limited to: alcohol intoxication Plan: -- Reassess and disposition Prior Visits: Notes and results from previous visits were reviewed. Patient was last seen in the emergency department on 05/06/2017 for back pain but was discharged. Progress Notes: 05/08/17 06:05 Pt awake, alert, ambulating with steady gait. Clinically sober, in no acute distress. Pt stable for d/c. - Medication Orders Current Medication Orders: Discontinued Medications Albuterol/Ipratropium (Duoneb 3 Mg/0.5 Mg (3 Ml) Ud) 3 ml IH STAT STA Stop: 05/08/17 04:24 Last Admin: 05/08/17 04:34 Dose: 3 ml Ondansetron HCl (Zofran Odt) 8 mg PO STAT STA Stop: 05/08/17 03:45 Last Admin: 05/08/17 03:51 Dose: 8 mg - Rahibe Statement The provider has reviewed the documentation as recorded by the Mary Pinto training under Deborah Kaiser All medical record entries made by the Mary were at my direction and personally dictated by me. I have reviewed the chart and agree that the record accurately reflects my personal performance of the history, physical exam, medical decision making, and the department course for this patient. I have also personally directed, reviewed, and agree with the discharge instructions and disposition. Disposition/Present on Arrival - Present on Arrival Any Indicators Present on Arrival: No History of DVT/PE: No History of Uncontrolled Diabetes: Yes Urinary Catheter: No History of Decub. Ulcer: No History Surgical Site Infection Following: None - Disposition Have Diagnosis and Disposition been Completed?: Yes Diagnosis: Alcohol abuse Disposition: HOME/ ROUTINE Disposition Time: 06:40 Condition: GOOD Referrals: Chuy Desir MD [Primary Care Provider] - Follow up with primary Forms: [employer] (Urdu)
[2017-05-08 03:17] VITALS: RESP 18; O2SAT 100
[2017-05-08 03:18] VITALS: BP 142/94; PULSE 94
[2017-05-08] MEDS ORDERED: Albuterol-Ipratrop 3 mg / 0.5 (3 ml) UD IH STA (04:23)
== END 2017-05-08 06:14 | disposition home or self-care (01) ==
LOC: ED 19:53
DX: F10.10 Alcohol abuse, uncomplicated (principal); Y90.9 Presence of alcohol in blood, level not specified

== ENCOUNTER 2017-05-08 20:39 | Emergency (ER) | payer MEDICAID ==
[2017-05-08 22:29] VITALS: BMI 27.4
[2017-05-08 23:25] VITALS: O2SAT 99
--- NOTE | 2017-05-08 23:55 | ED PDOC ---
Arrival/HPI - General Chief Complaint: Alcohol Ingestion Time Seen by Provider: 05/08/17 21:07 Historian: Patient - History of Present Illness Narrative History of Present Illness (Text): 05/08/17 23:54 A 56 year old male, well known to [facility] [place], whose past medical history includes alcohol abuse, presents to the emergency department with a complaint of vomiting today. The patient denies fevers, chills, headache, dizziness, chest pain, shortness of breath, dyspnea on exertion, cough, abdominal pain, nausea, diarrhea, back pain, neck pain, urinary/bowel changes, or any other complaint. PMD: Dr. Desir Time/Duration: Prior to Arrival Symptom Onset: Sudden Symptom Course: Unchanged Activities at Onset: Rest, Light Context: Home Past Medical History - Provider Review Nursing Documentation Reviewed: Yes - Past History Past History: No Previous - Infectious Disease Hx of Infectious Diseases: None - Tetanus Immunization Tetanus Immunization: Unknown - Cardiac Hx Cardiac Disorders: Yes - Pulmonary Hx Asthma: Yes Hx Chronic Obstructive Pulmonary Disease (COPD): Yes - Neurological Hx Neurological Disorder: No - HEENT Hx HEENT Disorder: No - Renal Hx Renal Disorder: No - Endocrine/Metabolic Hx Endocrine Disorders: No Hx Diabetes Mellitus Type 2: Yes - Hematological/Oncological Hx Blood Disorders: Yes Hx Anemia: Yes Hx Hepatitis C: No - Integumentary Hx Dermatological Disorder: No - Musculoskeletal/Rheumatological Hx Musculoskeletal Disorders: Yes Hx Back Pain: Yes Hx Falls: No - Gastrointestinal Hx Gastrointestinal Disorders: Yes Hx Gastritis: Yes Hx Gastroesophageal Reflux: Yes Hx Gastrointestinal Ulcer: Yes Hx Pancreatitis: Yes - Genitourinary/Gynecological Hx Genitourinary Disorders: No - Psychiatric Hx Psychophysiologic Disorder: Yes Hx Anxiety: Yes Hx Substance Use: No Other/Comment: alcohol abuse - Surgical History Other/Comment: orcchectomy, ventral and inguinal hernia repair - Anesthesia Hx Anesthesia: Yes Hx Anesthesia Reactions: No Hx Malignant Hyperthermia: No - Suicidal Assessment Feels Threatened In Home Enviroment: No Family/Social History - Physician Review Nursing Documentation Reviewed: Yes Family/Social History: No Known Family HX Smoking Status: Former Smoker Hx Alcohol Use: Yes Amount per day: 10 Hx Substance Use: No Hx Substance Use Treatment: No Allergies/Home Meds Allergies/Adverse Reactions: Allergies Penicillins Allergy (Mild, Verified 04/30/17 03:04) RASH Home Medications: Home Meds Medication Instructions Recorded Confirmed Unobtainable 05/08/17 05/08/17 Review of Systems - Physician Review All systems were reviewed & negative as marked: Yes - Review of Systems Constitutional: absent: Fevers, Night Sweats Respiratory: absent: SOB, Cough Cardiovascular: absent: Chest Pain, CRESPO Gastrointestinal: Vomiting. absent: Abdominal Pain, Stool Changes, Diarrhea, Nausea Genitourinary Male: absent: Urinary Output Changes Musculoskeletal: absent: Back Pain, Neck Pain Neurological: absent: Headache, Dizziness Physical Exam Vital Signs Reviewed: Yes Vital Signs Temp Pulse Resp BP Pulse Ox 05/09/17 00:00 97.9 F 70 16 120/73 99 05/08/17 22:40 98.7 F 76 18 132/70 99 05/08/17 20:40 98.7 F 76 16 139/72 99 Temperature: Afebrile Blood Pressure: Normal Pulse: Regular Respiratory Rate: Normal Appearance: Positive for: Well-Appearing, Non-Toxic, Comfortable Pain Distress: None Mental Status: Positive for: Alert and Oriented X 3 - Systems Exam Head: Present: Atraumatic, Normocephalic Pupils: Present: PERRL Extroacular Muscles: Present: EOMI Conjunctiva: Present: Normal Mouth: Present: Moist Mucous Membranes Neck: Present: Normal Range of Motion Respiratory/Chest: Present: Clear to Auscultation, Good Air Exchange. No: Respiratory Distress, Accessory Muscle Use Cardiovascular: Present: Regular Rate and Rhythm, Normal S1, S2. No: Murmurs Abdomen: Present: Normal Bowel Sounds. No: Tenderness, Distention, Peritoneal Signs Back: Present: Normal Inspection Upper Extremity: Present: Normal Inspection. No: Cyanosis, Edema Lower Extremity: Present: Normal Inspection. No: Edema Neurological: Present: GCS=15, CN II-XII Intact, Speech Normal Skin: Present: Warm, Dry, Normal Color. No: Rashes Psychiatric: Present: Alert, Oriented x 3, Normal Insight, Normal Concentration Medical Decision Making ED Course and Treatment: 05/08/17 23:57 Impression: A 56 year old male presents to the emergency department complaining of vomiting today. Plan: -- Labs -- Reassess and disposition Progress Notes: - Lab Interpretations Lab Results: 05/09/17 00:35 05/09/17 00:00 Lab Results 05/09/17 00:35: WBC 7.2, RBC 4.41, Hgb 9.3 L, Hct 31.3 L, MCV 71.0 L, MCH 21.1 L , MCHC 29.7 L, RDW 20.3 H, Plt Count 193, MPV 9.5, Gran % 71.4 H, Lymph % (Auto ) 22.0, [place] % (Auto) 6.0, Eos % (Auto) 0.3 L, Baso % (Auto) 0.3, Gran # 5.13, Lymph # (Auto) 1.6, [place] # (Auto) 0.4, Eos # (Auto) 0.0, Baso # (Auto) 0.02 05/09/17 00:00: Sodium 140, Potassium 3.9, Chloride 101, Carbon Dioxide 21, Anion Gap 22 H, BUN 9, Creatinine 0.8, Est GFR ( Amer) > 60, Est GFR (Non -Af Amer) > 60, Random Glucose 95, Calcium 9.0, Total Bilirubin 0.6, AST 40, ALT 20, Alkaline Phosphatase 117, Total Protein 7.8, Albumin 4.2, Globulin 3.6, Albumin/Globulin Ratio 1.2 I have reviewed the lab results: Yes - Scribe Statement The provider has reviewed the documentation as recorded by the Rahibe Berna Garcia Provider Scribe Attestation: All medical record entries made by the Scribe were at my direction and personally dictated by me. I have reviewed the chart and agree that the record accurately reflects my personal performance of the history, physical exam, medical decision making, and the department course for this patient. I have also personally directed, reviewed, and agree with the discharge instructions and disposition. Disposition/Present on Arrival - Present on Arrival Any Indicators Present on Arrival: No History of DVT/PE: No History of Uncontrolled Diabetes: Yes Urinary Catheter: No History of Decub. Ulcer: No History Surgical Site Infection Following: None - Disposition Have Diagnosis and Disposition been Completed?: Yes Diagnosis: Alcohol abuse Disposition: ELOPEMENT - ER ONLY Disposition Time: 05:00 Condition: UNKNOWN Forms: [employer] (Divehi)
[2017-05-09 00:43] LABS: ALB/GLOB RATIO 1.2 (1.1-1.8); ALBUMIN 4.2 g/dL (3.0-4.8); ALT/SGPT 20 U/L (7-56); AST/SGOT 40 U/L (17-59); BLOOD UREA NITROGEN 9 mg/dL (7-21); GFR AFRICAN-AMERICAN > 60; GFR NON-AFRICAN AMERICAN > 60
[2017-05-09 01:53] LABS: BASO # 0.02 K/mm3 (0.0-2.0); BASO % 0.3 % (0.0-3.0); EOS % 0.3 % (1.5-5.0); GRAN # 5.13 (1.4-6.5); GRAN % 71.4 % (50.0-68.0); HEMOGLOBIN 9.3 g/dL (14.0-18.0); LYMPH # 1.6 (1.2-3.4); MEAN CORPUSCULAR HEMOGLOBIN 21.1 pg (25.0-35.0); MEAN CORPUSCULAR HGB CONC 29.7 g/dl (31.0-37.0); MEAN PLATELET VOLUME 9.5 fl (7.0-11.0); MONO # 0.4 (0.1-0.6); RBC 4.41 10^6/uL (3.5-6.1); RED CELL DISTRIBUTION WIDTH 20.3 % (11.5-14.5); WHITE BLOOD COUNT 7.2 10^3/ul (4.5-11.0)
[2017-05-09 03:12] VITALS: BP 120/73; PULSE 70; RESP 16; TEMP 97.9
== END 2017-05-09 01:30 | disposition left against medical advice (07) ==
LOC: ED 20:39
DX: F10.10 Alcohol abuse, uncomplicated (principal)

== ENCOUNTER 2017-05-11 09:06 | Inpatient (IN) | payer MEDICAID ==
[2017-05-11 09:33] VITALS: BMI 29.8
[2017-05-11] MEDS ORDERED: Morphine 2 mg/ml ISec ONE (09:36)
--- NOTE | 2017-05-11 10:13 | ED PDOC ---
Arrival/HPI - General Historian: Patient - History of Present Illness Time/Duration: 4-6 hours Symptom Onset: Gradual Symptom Course: Unchanged Quality: Aching, Pressure, Burning Severity Level: Mild Activities at Onset: Rest, Light Context: Sitting, Standing, Walking - General Chief Complaint: Chest Pain Time Seen by Provider: 05/11/17 10:06 - History of Present Illness Narrative History of Present Illness (Text): 05/11/17 10:08 Pt is a 56 year old male, well known to [facility] [place], whose past medical history includes alcohol abuse, presents to the emergency department with a complaint of vomiting and chest pain x 1 day. The patient denies fevers, chills, headache , dizziness, chest pain, shortness of breath, dyspnea on exertion, cough, abdominal pain, nausea, diarrhea, back pain, neck pain, urinary/bowel changes, or any other complaint. (Mae Pierre) Past Medical History - Provider Review Nursing Documentation Reviewed: Yes - Travel History Have you recently traveled outside [place] w/in the past 3 mons?: No - Past History Past History: No Previous - Infectious Disease Hx of Infectious Diseases: None - Tetanus Immunization Tetanus Immunization: Unknown - Cardiac Hx Cardiac Disorders: Yes - Pulmonary Hx Asthma: Yes Hx Chronic Obstructive Pulmonary Disease (COPD): Yes - Neurological Hx Neurological Disorder: No - HEENT Hx HEENT Disorder: No - Renal Hx Renal Disorder: No - Endocrine/Metabolic Hx Endocrine Disorders: No Hx Diabetes Mellitus Type 2: Yes - Hematological/Oncological Hx Blood Disorders: Yes Hx Anemia: Yes Hx Hepatitis C: No - Integumentary Hx Dermatological Disorder: No - Musculoskeletal/Rheumatological Hx Musculoskeletal Disorders: Yes Hx Back Pain: Yes Hx Falls: No - Gastrointestinal Hx Gastrointestinal Disorders: Yes Hx Gastritis: Yes Hx Gastroesophageal Reflux: Yes Hx Gastrointestinal Ulcer: Yes Hx Pancreatitis: Yes - Genitourinary/Gynecological Hx Genitourinary Disorders: No - Psychiatric Hx Psychophysiologic Disorder: Yes Hx Anxiety: Yes Hx Substance Use: No Other/Comment: alcohol abuse - Surgical History Other/Comment: orcchectomy, ventral and inguinal hernia repair - Anesthesia Hx Anesthesia: Yes Hx Anesthesia Reactions: No Hx Malignant Hyperthermia: No - Suicidal Assessment Feels Threatened In Home Enviroment: No Family/Social History - Physician Review Nursing Documentation Reviewed: Yes Family/Social History: Unknown Family HX Smoking Status: Former Smoker Hx Alcohol Use: Yes Amount per day: 10 Hx Substance Use: No Hx Substance Use Treatment: No Allergies/Home Meds Allergies/Adverse Reactions: Allergies Penicillins Allergy (Mild, Verified 04/30/17 03:04) RASH Review of Systems - Review of Systems Constitutional: Normal Eyes: Normal ENT: Normal Respiratory: Normal Cardiovascular: Chest Pain Gastrointestinal: Nausea, Vomiting Genitourinary Male: Normal Musculoskeletal: Normal Skin: Normal Neurological: Normal Endocrine: Normal Hemo/Lymphatic: Normal Psychiatric: Normal Physical Exam Vital Signs Reviewed: Yes Temperature: Afebrile Blood Pressure: Normal Pulse: Regular Respiratory Rate: Normal Appearance: Positive for: Well-Appearing, Non-Toxic, Comfortable Pain Distress: None Mental Status: Positive for: Alert and Oriented X 3 - Systems Exam Head: Present: Atraumatic, Normocephalic Pupils: Present: PERRL Extroacular Muscles: Present: EOMI Conjunctiva: Present: Normal Mouth: Present: Moist Mucous Membranes Neck: Present: Normal Range of Motion Respiratory/Chest: Present: Clear to Auscultation, Good Air Exchange. No: Respiratory Distress, Accessory Muscle Use Cardiovascular: Present: Regular Rate and Rhythm, Normal S1, S2. No: Murmurs Abdomen: Present: Normal Bowel Sounds. No: Tenderness, Distention, Peritoneal Signs Back: Present: Normal Inspection Upper Extremity: Present: Normal Inspection. No: Cyanosis, Edema Lower Extremity: Present: Normal Inspection. No: Edema Neurological: Present: GCS=15, CN II-XII Intact, Speech Normal Skin: Present: Warm, Dry, Normal Color. No: Rashes Psychiatric: Present: Alert, Oriented x 3, Normal Insight, Normal Concentration Vital Signs Temp Pulse Resp BP Pulse Ox 05/12/17 10:47 82 18 136/71 95 05/12/17 09:42 79 18 138/74 98 05/12/17 06:37 85 17 140/86 98 05/12/17 04:16 83 17 123/68 96 05/12/17 01:36 84 17 134/84 95 05/11/17 21:00 93 H 18 129/89 98 05/11/17 18:29 92 H 18 122/80 05/11/17 17:06 92 H 17 122/80 95 05/11/17 09:37 98.7 F 93 H 18 131/77 95 Medical Decision Making - Lab Interpretations I have reviewed the lab results: Yes - RAD Interpretation Wallpaper Installer: ED Physician - EKG Interpretation Interpreted by ED Physician: Yes (NSR) ED Course and Treatment: 05/11/17 19:25 Patient with mild epigastric abdominal pain. Chest pain appears palpable. With serial exams, became more tremulous and tachycardic. IV fluids and ativan ordered. Hgb at baseline. CXR no acute changes. EKG with no acute st changes. Will admit for alcohol withdrawal. (Eric Barry) 05/11/17 10:09 Pt is a 56 year old male, well known to [facility] [place], whose past medical history includes alcohol abuse, presents to the emergency department with a complaint of vomiting and chest pain x 1 day. On exam, pt has alcohol on his breath, appears intoxicated but converses well. Although he complains of vomiting, there is no evidence of that todate Plan Assess and Dispo CXR, ECG Monitor closely Progress Note Hematemesis started approximately 1 hour after evaluation; pt began to shake and states he feels terrible ECG unremarkable CXR labs and Banana bag ordered along with Ativan 1mg along with EtOH level Pt improving on receiving fluids, cessation of vomiting transiently; vomiting intermittently brown speckles of blood in vomit EtOH level of 104 (baseline) Will continue to monitor pt Pts HgB 9.1 and Hct 30.3 at baseline Pt continues to have shakes and continues to feel nauseated Dr. Barry consulted on case; was decided to admit pt to remote telemetry Hospitalist was consulted and pt admitted to Remote Telemetry 05/11/17 17:29 (Mae Pierre) - Lab Interpretations Lab Results: 05/11/17 11:35 05/11/17 11:35 Lab Results 05/11/17 11:35: Sodium 136, Potassium 4.2, Chloride 96 L, Carbon Dioxide 25, Anion Gap 19, BUN 11, Creatinine 0.7 L, Est GFR ( Amer) > 60, Est GFR ( Non-Af Amer) > 60, Random Glucose 99, Calcium 9.0, Total Bilirubin 0.6, AST 44, ALT 35, Alkaline Phosphatase 106, Total Protein 7.1, Albumin 4.0, Globulin 3.2, Albumin/Globulin Ratio 1.2 05/11/17 11:35: WBC 8.7 D, RBC 4.29, Hgb 9.1 L, Hct 30.3 L, MCV 70.6 L, MCH 21.2 L, MCHC 30.0 L, RDW 20.1 H, Plt Count 160, MPV 9.9 05/11/17 11:30: PT 13.6 H, INR 1.18 H, APTT 27.4 05/11/17 11:30: Lactate Dehydrogenase 539, Total Creatine Kinase 62, Troponin I < 0.01 05/11/17 11:30: Alcohol, Quantitative 104 H - RAD Interpretation Narrative RAD Interpretations (Text): 05/11/17 13:40 CXR revelas no disease process (Mae Pierre) Radiology Orders: 05/11/17 10:13 CHEST TWO VIEWS (PA/LAT) [RAD] Stat - Medication Orders Current Medication Orders: Albuterol/Ipratropium (Duoneb 3 Mg/0.5 Mg (3 Ml) Ud) 3 ml IH Q2H PRN PRN Reason: Shortness of Breath Last Admin: 05/12/17 02:15 Dose: 3 ml Chlordiazepoxide (Librium) 25 mg PO Q8 SOPHIA PRN Reason: Protocol Last Admin: 05/12/17 06:18 Dose: 25 mg Folic Acid 1 mg/ Thiamine HCl 100 mg/ Multivitamins/Vitamin C 10 ml/ Dextrose 1 ,011.2 mls @ 100 mls/hr IV .Q10H7M SOPHIA Last Admin: 05/12/17 06:18 Dose: 100 mls/hr eMAR Start Stop Document 05/12/17 06:18 IT (Rec: 05/12/17 06:18 [id number]) Intravenous Solution Start Date 05/12/17 Start Time 06:00 Lorazepam (Ativan) 2 mg IVP Q2 PRN; Protocol PRN Reason: Anxiety Last Admin: 05/12/17 00:29 Dose: 2 mg IVP Administration Document 05/12/17 00:29 IT (Rec: 05/12/17 00:29 [id number]) Charges for Administration # of IVP Administrations 1 Ondansetron HCl (Zofran Inj) 4 mg IVP Q6H [facility] Pantoprazole Sodium (Protonix Ec Tab) 40 mg PO 0600,1600 [facility] Sucralfate (Carafate Tab) 1 gm PO 0630,1130,1630,2200 SOPHIA Discontinued Medications Multivitamins/Vitamin C 10 ml/Thiamine HCl 100 mg/ Folic Acid 1 mg/ Sodium Chloride 1,011.2 mls @ 1,000 mls/hr IV .Q1H1M ONE Stop: 05/11/17 13:19 Last Admin: 05/11/17 13:26 Dose: 1,000 mls/hr eMAR Start Stop Document 05/11/17 13:26 EQ (Rec: 05/11/17 13:26 EQ [facility] [id number][place] Intravenous Solution Start Date 05/11/17 Start Time 13:26 Lorazepam (Ativan) 1 mg IVP ONCE ONE PRN Reason: Protocol Stop: 05/11/17 12:06 Last Admin: 05/11/17 15:15 Dose: 1 mg Comments: held until [address] Barry IVP Administration Document 05/11/17 15:15 EQ (Rec: 05/11/17 15:53 EQ [facility] [place]-[id number]) Charges for Administration # of IVP Administrations 1 Ondansetron HCl (Zofran Inj) 4 mg IVP ONCE ONE Stop: 05/11/17 13:44 Last Admin: 05/11/17 14:04 Dose: 4 mg IVP Administration Document 05/11/17 14:04 EQ (Rec: 05/11/17 14:04 EQ [facility] [place]-[id number]) Charges for Administration # of IVP Administrations 1 Ondansetron HCl (Zofran Inj) 4 mg IVP STAT STA Stop: 05/11/17 13:51 Last Admin: 05/11/17 14:04 Dose: IVP Administration Document 05/11/17 14:04 EQ (Rec: 05/11/17 14:04 EQ [facility] [place]-[id number]) Charges for Administration # of IVP Administrations 1 Ondansetron HCl (Zofran Inj) 4 mg IVP Q4H PRN PRN Reason: Nausea/Vomiting Last Admin: 05/11/17 19:21 Dose: 4 mg IVP Administration Document 05/11/17 19:21 EQ (Rec: 05/11/17 19:21 EQ [facility] [place]-[id number]) Charges for Administration # of IVP Administrations 1 Pantoprazole Sodium (Protonix Inj) 40 mg IVP ONCE STA Stop: 05/11/17 12:21 Last Admin: 05/11/17 13:26 Dose: 40 mg IVP Administration Document 05/11/17 13:26 EQ (Rec: 05/11/17 13:26 EQ [facility] [place]-[id number]) Charges for Administration # of IVP Administrations 1 Potassium Chloride (K-Dur 20 Meq Er Tab) 40 meq PO STAT STA Stop: 05/12/17 07:09 Disposition/Present on Arrival - Present on Arrival Any Indicators Present on Arrival: Yes History of DVT/PE: No History of Uncontrolled Diabetes: Yes Urinary Catheter: No History of Decub. Ulcer: No History Surgical Site Infection Following: None - Disposition Have Diagnosis and Disposition been Completed?: Yes Disposition Time: 14:57 Patient Plan: Admission - Disposition Diagnosis: Alcohol abuse, Alcohol withdrawal Disposition: HOSPITALIZED Patient Problems: Current Active Problems Problem Status Onset Alcohol abuse Chronic Condition: FAIR
--- NOTE | 2017-05-11 11:10 | RAD ---
HISTORY: Chest pain. COMPARISON: Comparison chest dated 04/10/2017 TECHNIQUE: Chest PA and lateral FINDINGS: LUNGS: No active pulmonary disease. PLEURA: No significant pleural effusion identified. No pneumothorax apparent. CARDIOVASCULAR: Heart is mildly enlarged. OSSEOUS STRUCTURES: Minor multilevel degenerative spondylosis of the thoracic spine VISUALIZED UPPER ABDOMEN: Normal. OTHER FINDINGS: None. IMPRESSION: No active disease.
[2017-05-11] MEDS ORDERED: Multivitamin (MVI) 10 ML, Thiamine 100 MG, Folic Acid 1 MG in Dextrose 5% In Water 1,00... IV ONE (11:38)
[2017-05-11 12:11] LABS: HEMOGLOBIN 9.1 g/dL (14.0-18.0); MEAN CELL VOLUME 70.6 fl (80.0-105.0); MEAN CORPUSCULAR HEMOGLOBIN 21.2 pg (25.0-35.0); MEAN PLATELET VOLUME 9.9 fl (7.0-11.0); RBC 4.29 10^6/uL (3.5-6.1); RED CELL DISTRIBUTION WIDTH 20.1 % (11.5-14.5); WHITE BLOOD COUNT 8.7 10^3/ul (4.5-11.0)
[2017-05-11 12:21] LABS: ALB/GLOB RATIO 1.2 (1.1-1.8); ALT/SGPT 35 U/L (7-56); AST/SGOT 44 U/L (17-59); BLOOD UREA NITROGEN 11 mg/dL (7-21); GFR AFRICAN-AMERICAN > 60; GFR NON-AFRICAN AMERICAN > 60
[2017-05-11] MEDS: Multivitamin (MVI) 10 ML, Thiamine 100 MG, Folic Acid 1 MG in Sodium Chloride 0.9% 1,00... IV ONE ×2 (12:30→13:26)
[2017-05-11 13:26] LABS: INR 1.18 (0.93-1.08); PARTIAL THROMBOPLASTIN TIME 27.4 Seconds (25.1-36.5); PROTHROMBIN TIME 13.6 SECONDS (9.4-12.5)
[2017-05-11 13:47] LABS: TROPONIN I < 0.01 ng/mL
--- NOTE | 2017-05-11 17:15 | CP.PCM.HP ---
<Joel Castro - Last Filed: 05/11/17 17:24> History of Present Illness - History of Present Illness History of Present Illness: 56 year old male with past medical history of erosive esophagitis, chromic pancreatitis, COPD, and microcytic anemia presents to the hospital for a 1 day history of vomiting blood. Patient states he woke up this morning he had multiple episodes of vomiting, all contained bright red blood. At this time patient came to the hospital. Patient has last alcoholic beverage yesterday at 5 pm. Patient also states he is going through withdrawal and is tremlulous. Patient admits to baseline, diffuse abdominal pain. Denies chest pain, fever, chills, shortness of breath, dysuria, weakness, changes in vision, diarrhea. PMH: Erosive esophagitis, chromic pancreatitis, COPD, and microcytic anemia PSH: Inguinal hernia repair and Right orchiectomy Medications: MV, thiamine and folic acid Social Hx: admits to daily alcohol use, denies tobacco or substance abuse FH: Father: Rectal cancer, Mother: Ovarian CA Allergies: Penicillin Present on Admission - Present on Admission Any Indicators Present on Admission: No Review of Systems - Review of Systems Review of Systems: 12 point ROS as per HPI, otherwise negative Past Patient History - Infectious Disease Hx of Infectious Diseases: None - Tetanus Immunizations Tetanus Immunization: Unknown - Past Medical History & Family History Past Medical History?: Yes - Past Social History Smoking Status: Former Smoker - CARDIAC Hx Cardiac Disorders: Yes - PULMONARY Hx Asthma: Yes Hx Chronic Obstructive Pulmonary Disease (COPD): Yes - NEUROLOGICAL Hx Neurological Disorder: No - HEENT Hx HEENT Problems: No - RENAL Hx Chronic Kidney Disease: No - ENDOCRINE/METABOLIC Hx Endocrine Disorders: No Hx Diabetes Mellitus Type 2: Yes - HEMATOLOGICAL/ONCOLOGICAL Hx Blood Disorders: Yes Hx Anemia: Yes Hx Hepatitis C: No - INTEGUMENTARY Hx Dermatological Problems: No - MUSCULOSKELETAL/RHEUMATOLOGICAL Hx Musculoskeletal Disorders: Yes Hx Back Pain: Yes Hx Falls: No - GASTROINTESTINAL Hx Gastrointestinal Disorders: Yes Hx Gastritis: Yes Hx Gastroesophageal Reflux: Yes Hx Pancreatitis: Yes - GENITOURINARY/GYNECOLOGICAL Hx Genitourinary Disorders: No - PSYCHIATRIC Hx Psychophysiologic Disorder: Yes Hx Anxiety: Yes Hx Substance Use: No Other/Comment: alcohol abuse - SURGICAL HISTORY Other/Comment: orcchectomy, ventral and inguinal hernia repair - ANESTHESIA Hx Anesthesia: Yes Hx Anesthesia Reactions: No Hx Malignant Hyperthermia: No Meds Home Medications: Home Medication List Medication Instructions Recorded Confirmed Type Ondansetron HCl [Zofran] 4 mg PO Q8 #15 tablet 05/11/17 Rx Vitamin B Complex 100 No.2 [B-100 100 mg PO DAILY #30 tablet.er 05/11/17 Rx Complex] Allergies/Adverse Reactions: Allergies Allergy/AdvReac Type Severity Reaction Status Date / Time Penicillins Allergy Mild RASH Verified 04/30/17 03:04 Physical Exam - Constitutional Appears: Non-toxic, No Acute Distress, Older Than Stated Age - Head Exam Head Exam: ATRAUMATIC, NORMAL INSPECTION, NORMOCEPHALIC - Eye Exam Eye Exam: EOMI, Normal appearance - ENT Exam ENT Exam: Mucous Membranes Moist - Neck Exam Neck exam: Positive for: Normal Inspection. Negative for: Lymphadenopathy - Respiratory Exam Respiratory Exam: Clear to Auscultation Bilateral, NORMAL BREATHING PATTERN. absent: Rales, Rhonchi, Wheezes - Cardiovascular Exam Cardiovascular Exam: RRR, +S1, +S2 - GI/Abdominal Exam GI & Abdominal Exam: Normal Bowel Sounds, Soft, Tenderness (Diffuse, baseline). absent: Distended, Rebound - Extremities Exam Extremities exam: Positive for: pedal edema (Trace b/l). Negative for: calf tenderness - Neurological Exam Neurological exam: Alert, CN II-XII Intact, Oriented x3 Additional comments: Tremulous - Psychiatric Exam Psychiatric exam: Normal Affect, Normal Mood - Skin Skin Exam: Intact, Normal Color, Warm Results - Vital Signs Recent Vital Signs: Last Vital Signs Temp 98.7 F 05/11/17 09:37 Pulse 93 H 05/11/17 09:37 Resp 18 05/11/17 09:37 BP 131/77 05/11/17 09:37 Pulse Ox 95 05/11/17 09:37 - Labs Result Diagrams: 05/11/17 11:35 05/11/17 11:35 Assessment & Plan - Assessment and Plan (Free Text) Plan: 56 year old male with past medical history of erosive esophagitis, chromic pancreatitis, COPD, and microcytic anemia presents with hematemesis in the setting of alcohol withdrawal. Patient will be admitted [facility] for alcohol withdrawal. Patient will have GI consulted for Hematemesis. Hemoglobin currently at baseline, will repeat CBC in evening. 1. Hematemesis Hg stable GI consulted, Dr. Monsivais Protonix 40 mg IV Transfuse as necessary NPO Zofran for nausea 2. Alcohol withdrawal Banana bag Librium 25 mg q8h Ativan 2 mg q4h PRN CIWA protocol Seizure precautions Fall Risk 3. COPD Duonebs prn 4. Prophylaxis Protonix SCDs Matthew, PGY-2 <Dale Narvaez - Last Filed: 05/11/17 17:33> Results - Vital Signs Recent Vital Signs: Last Vital Signs Temp 98.7 F 05/11/17 09:37 Pulse 92 H 05/11/17 17:06 Resp 17 05/11/17 17:06 BP 122/80 05/11/17 17:06 Pulse Ox 95 05/11/17 17:06 - Labs Result Diagrams: 05/11/17 11:35 05/11/17 11:35 Attending/Attestation - Attestation I have personally seen and examined this patient.: Yes I have fully participated in the care of the patient.: Yes I have reviewed all pertinent clinical information: Yes Notes (Text): 05/11/17 17:31 56 year old male with past medical history of erosive esophagitis, COPD and chronic ETOH abuse who presents with complaint of hematemesis and mild abdominal pain. Also found to be in alcohol withdrawal. Continue with NPO, IVF, protonix and zofran prn. GI evaluation is requested. Will monitor H/H. Continue with banana bag and librium/ativan for withdrawal symptoms. Counselled on alcohol abstinence. Dale Narvaez MD Hospitalist.
[2017-05-11] MEDS: Folic Acid 1 MG, Thiamine 100 MG, Multivitamin (MVI) 10 ML in Dextrose 5% In Water 1,00... IV SCH (19:21)
[2017-05-11 20:49] LABS: MEAN CELL VOLUME 71.4 fl (80.0-105.0); MEAN CORPUSCULAR HEMOGLOBIN 21.5 pg (25.0-35.0); MEAN CORPUSCULAR HGB CONC 30.1 g/dl (31.0-37.0); MEAN PLATELET VOLUME 9.5 fl (7.0-11.0); RBC 4.19 10^6/uL (3.5-6.1); RED CELL DISTRIBUTION WIDTH 20.2 % (11.5-14.5)
[2017-05-12] MEDS: Albuterol-Ipratrop 3 mg / 0.5 (3 ml) UD IH PRN (02:15)
[2017-05-12 05:12] LABS: URINE BILIRUBIN NEGATIVE (NEGATIVE); URINE BLOOD NEGATIVE (NEGATIVE); URINE GLUCOSE (UA) NEGATIVE (NEGATIVE); URINE LEUKOCYTE ESTERASE SMALL Leu/uL (NEGATIVE); URINE NITRATE NEGATIVE (NEGATIVE); URINE PROTEIN TRACE mg/dL (<30 mg/dL); URINE UROBILINOGEN 0.2 E.U./dL (<1 E.U./dL)
[2017-05-12 05:15] LABS: URINE APPEARANCE SL CLOUDY (CLEAR); URINE COLOR YELLOW (YELLOW)
[2017-05-12 05:35] LABS: URINE BACTERIA FEW (NEG); URINE RBC 0 - 2 /hpf (0-2)
[2017-05-12 05:53] LABS: HEMOGLOBIN 8.8 g/dL (14.0-18.0); MEAN CORPUSCULAR HEMOGLOBIN 21.3 pg (25.0-35.0); MEAN CORPUSCULAR HGB CONC 29.9 g/dl (31.0-37.0); MEAN PLATELET VOLUME 9.3 fl (7.0-11.0); RBC 4.14 10^6/uL (3.5-6.1); RED CELL DISTRIBUTION WIDTH 19.9 % (11.5-14.5); WHITE BLOOD COUNT 5.3 10^3/ul (4.5-11.0)
[2017-05-12 06:15] LABS: ALB/GLOB RATIO 1.2 (1.1-1.8); ALBUMIN 3.8 g/dL (3.0-4.8); ALT/SGPT 29 U/L (7-56); AST/SGOT 41 U/L (17-59); BLOOD UREA NITROGEN 9 mg/dL (7-21); CALCIUM 9.2 mg/dL (8.4-10.5); GFR AFRICAN-AMERICAN > 60; GFR NON-AFRICAN AMERICAN > 60
[2017-05-12] MEDS: Folic Acid 1 MG, Thiamine 100 MG, Multivitamin (MVI) 10 ML in Dextrose 5% In Water 1,00... IV SCH ×2 (06:18→14:50)
[2017-05-12] MEDS ORDERED: Potassium Chloride 20 mEq ER Tab PO STA (07:08)
--- NOTE | 2017-05-12 09:25 | CP.PCM.CON ---
<Albin Hannon - Last Filed: 05/12/17 09:35> History of Present Illness - History of Present Illness History of Present Illness: GI Consult Note - Albin Hannon PGY2 cc: hematemesis HPI: Gerry is a 56yo male with past medical history of erosive esophagitis, chronic pancreatitis, COPD, alcohol abuse and microcytic anemia that presented to [facility] complaining of epigastric tenderness associated with coffee-ground emesis. He reports having had several beers and half a pint of vodka 2 days prior and on the day of presentation began to have hematemesis. He reports having similar symptoms in the past associated with alcohol consumption. Chart review reflects that he had an EGD done in 12/2016 which revealed LA Grade C/D esophagitis, gastritis, duodenitis and was instructed to take PPI's and follow up with GI as an outpatient. He denied chest pain, palpitations, SOB, focal weakness, numbness, tingling, fevers, chills. 12point ROS as per HPI above otherwise negative PMHx: as stated above PSHx: Inguinal hernia repair and Right orchiectomy Medications: see MAR Allergies: Penicillin Social Hx: Daily alcohol use (several beers and vodka); denies tobacco and illicit drug use Family Hx: Father: Rectal cancer, Mother: Ovarian CA Endo: Last EGD on 12/2016; No colonoscopies Past Patient History - Infectious Disease Hx of Infectious Diseases: None - Tetanus Immunizations Tetanus Immunization: Unknown - Past Medical History & Family History Past Medical History?: Yes - Past Social History Smoking Status: Former Smoker - CARDIAC Hx Cardiac Disorders: Yes - PULMONARY Hx Asthma: Yes Hx Chronic Obstructive Pulmonary Disease (COPD): Yes - NEUROLOGICAL Hx Neurological Disorder: No - HEENT Hx HEENT Problems: No - RENAL Hx Chronic Kidney Disease: No - ENDOCRINE/METABOLIC Hx Endocrine Disorders: No Hx Diabetes Mellitus Type 2: Yes - HEMATOLOGICAL/ONCOLOGICAL Hx Blood Disorders: Yes Hx Anemia: Yes Hx Hepatitis C: No - INTEGUMENTARY Hx Dermatological Problems: No - MUSCULOSKELETAL/RHEUMATOLOGICAL Hx Falls: No - GASTROINTESTINAL Hx Gastrointestinal Disorders: Yes Hx Gastroesophageal Reflux: Yes Hx Pancreatitis: Yes - GENITOURINARY/GYNECOLOGICAL Hx Genitourinary Disorders: No - PSYCHIATRIC Hx Psychophysiologic Disorder: Yes Hx Anxiety: Yes Other/Comment: alcohol abuse - SURGICAL HISTORY Other/Comment: orcchectomy, ventral and inguinal hernia repair - ANESTHESIA Hx Anesthesia: Yes Hx Anesthesia Reactions: No Hx Malignant Hyperthermia: No Meds Home Medications: Home Medication List Medication Instructions Recorded Confirmed Type Ondansetron HCl [Zofran] 4 mg PO Q8 #15 tablet 05/11/17 Rx Vitamin B Complex 100 No.2 [B-100 100 mg PO DAILY #30 tablet.er 05/11/17 Rx Complex] Allergies/Adverse Reactions: Allergies Allergy/AdvReac Type Severity Reaction Status Date / Time Penicillins Allergy Mild RASH Verified 04/30/17 03:04 - Medications Medications: Current Medications Albuterol/Ipratropium (Duoneb 3 Mg/0.5 Mg (3 Ml) Ud) 3 ml IH Q2H PRN PRN Reason: Shortness of Breath Last Admin: 05/12/17 02:15 Dose: 3 ml Chlordiazepoxide (Librium) 25 mg PO Q8 SOPHIA PRN Reason: Protocol Last Admin: 05/12/17 06:18 Dose: 25 mg Folic Acid 1 mg/ Thiamine HCl 100 mg/ Multivitamins/Vitamin C 10 ml/ Dextrose 1 ,011.2 mls @ 100 mls/hr IV .Q10H7M SOPHIA Last Admin: 05/12/17 06:18 Dose: 100 mls/hr Lorazepam (Ativan) 2 mg IVP Q2 PRN; Protocol PRN Reason: Anxiety Last Admin: 05/12/17 00:29 Dose: 2 mg Ondansetron HCl (Zofran Inj) 4 mg IVP Q4H PRN PRN Reason: Nausea/Vomiting Last Admin: 05/11/17 19:21 Dose: 4 mg Physical Exam - Constitutional Appears: Unkempt - Head Exam Head Exam: ATRAUMATIC, NORMOCEPHALIC - Eye Exam Eye Exam: EOMI, PERRL - ENT Exam ENT Exam: Mucous Membranes Moist - Respiratory Exam Respiratory Exam: absent: Rales, Rhonchi, Wheezes - Cardiovascular Exam Cardiovascular Exam: +S1, +S2. absent: Gallop, Rubs - GI/Abdominal Exam GI & Abdominal Exam: Distended, Soft, Tenderness (mild epigastric). absent: Firm, Guarding, Rebound, Rigid - Rectal Exam Rectal Exam: NORMAL INSPECTION Additional comments: no gross blood soft brown stool - Extremities Exam Extremities exam: Positive for: normal inspection. Negative for: pedal edema - Neurological Exam Neurological exam: Alert, Oriented x3 - Psychiatric Exam Psychiatric exam: Normal Affect, Normal Mood - Skin Skin Exam: Dry, Intact, Normal Color, Warm Results - Vital Signs Recent Vital Signs: Last Vital Signs Temp 98.7 F 05/11/17 09:37 Pulse 85 05/12/17 06:37 Resp 17 05/12/17 06:37 BP 140/86 05/12/17 06:37 Pulse Ox 98 05/12/17 06:37 - Labs Result Diagrams: 05/12/17 05:40 05/12/17 05:40 Labs: Laboratory Results - last 24 hr 05/11/17 05/12/17 05/12/17 20:40 03:55 05:40 WBC 9.0 5.3 D RBC 4.19 4.14 Hgb 9.0 L 8.8 L Hct 29.9 L 29.4 L MCV 71.4 L 71.0 L MCH 21.5 L 21.3 L MCHC 30.1 L 29.9 L RDW 20.2 H 19.9 H Plt Count 148 118 L MPV 9.5 9.3 Sodium Potassium Chloride Carbon Dioxide Anion Gap BUN Creatinine Est GFR ( Amer) Est GFR (Non-Af Amer) POC Glucose (mg/dL) Random Glucose Calcium Total Bilirubin AST ALT Alkaline Phosphatase Total Protein Albumin Globulin Albumin/Globulin Ratio Urine Color Yellow Urine Appearance Sl cloudy Urine pH 6.0 Ur Specific [place] 1.020 Urine Protein Trace H Urine Glucose (UA) Negative Urine Ketones Trace H Urine Blood Negative Urine Nitrate Negative Urine Bilirubin Negative Urine Urobilinogen 0.2 Ur Leukocyte Esterase Small H Urine RBC 0 - 2 Urine WBC 2 - 5 Ur Epithelial Cells 1 - 3 Urine Bacteria Few 05/12/17 05/12/17 05/12/17 05:40 05:46 08:21 WBC RBC Hgb Hct MCV MCH MCHC RDW Plt Count MPV Sodium 137 Potassium 3.5 L Chloride 98 Carbon Dioxide 28 Anion Gap 15 BUN 9 Creatinine 0.8 Est GFR ( Amer) > 60 Est GFR (Non-Af Amer) > 60 POC Glucose (mg/dL) 77 96 Random Glucose 90 Calcium 9.2 Total Bilirubin 1.1 AST 41 ALT 29 Alkaline Phosphatase 99 Total Protein 7.0 Albumin 3.8 Globulin 3.2 Albumin/Globulin Ratio 1.2 Urine Color Urine Appearance Urine pH Ur Specific [place] Urine Protein Urine Glucose (UA) Urine Ketones Urine Blood Urine Nitrate Urine Bilirubin Urine Urobilinogen Ur Leukocyte Esterase Urine RBC Urine WBC Ur Epithelial Cells Urine Bacteria Assessment & Plan - Assessment and Plan (Free Text) Plan: 56yo male with history of alcohol abuse, chronic pancreatitis, erosive esophagitis and chronic anemia presents c/o epigastric abdominal pain associated with coffee-ground emesis. 1. Erosive esophagitis 2. Danielle valente 3. Alcohol abuse 4. Microcytic anemia 5. Hx of chronic pancreatitis Plan: -Recommend Protonix PO BID and carafate for erosive esophagitis -Recommend antiemetics for nausea/vomiting -Continue with multivitamin/thiamine/folate -Alcohol cessation counseling -Hemoglobin noted to be around baseline; no overt signs of blood loss; rectal exam revealed no gross blood -EGD from 12/2016 reviewed; revealed LA Grade C/D erosive esophagitis, gastritis , duodenitis -Recommend follow up with GI as an outpatient for age-appropriate screening colonoscopy <Amish Moya - Last Filed: 05/12/17 10:19> Meds - Medications Medications: Current Medications Albuterol/Ipratropium (Duoneb 3 Mg/0.5 Mg (3 Ml) Ud) 3 ml IH Q2H PRN PRN Reason: Shortness of Breath Last Admin: 05/12/17 02:15 Dose: 3 ml Chlordiazepoxide (Librium) 25 mg PO Q8 SOPHIA PRN Reason: Protocol Last Admin: 05/12/17 06:18 Dose: 25 mg Folic Acid 1 mg/ Thiamine HCl 100 mg/ Multivitamins/Vitamin C 10 ml/ Dextrose 1 ,011.2 mls @ 100 mls/hr IV .Q10H7M [facility] Last Admin: 05/12/17 06:18 Dose: 100 mls/hr Lorazepam (Ativan) 2 mg IVP Q2 PRN; Protocol PRN Reason: Anxiety Last Admin: 05/12/17 00:29 Dose: 2 mg Ondansetron HCl (Zofran Inj) 4 mg IVP Q4H PRN PRN Reason: Nausea/Vomiting Last Admin: 05/11/17 19:21 Dose: 4 mg Pantoprazole Sodium (Protonix Ec Tab) 40 mg PO 0600,1600 SOPHIA Sucralfate (Carafate Tab) 1 gm PO 0630,1130,1630,2200 SOPHIA Results - Vital Signs Recent Vital Signs: Last Vital Signs Temp 98.7 F 05/11/17 09:37 Pulse 79 05/12/17 09:42 Resp 18 05/12/17 09:42 BP 138/74 05/12/17 09:42 Pulse Ox 98 05/12/17 09:42 - Labs Result Diagrams: 05/12/17 05:40 05/12/17 05:40 Labs: Laboratory Results - last 24 hr 05/11/17 05/12/17 05/12/17 20:40 03:55 05:40 WBC 9.0 5.3 D RBC 4.19 4.14 Hgb 9.0 L 8.8 L Hct 29.9 L 29.4 L MCV 71.4 L 71.0 L MCH 21.5 L 21.3 L MCHC 30.1 L 29.9 L RDW 20.2 H 19.9 H Plt Count 148 118 L MPV 9.5 9.3 Sodium Potassium Chloride Carbon Dioxide Anion Gap BUN Creatinine Est GFR ( Amer) Est GFR (Non-Af Amer) POC Glucose (mg/dL) Random Glucose Calcium Total Bilirubin AST ALT Alkaline Phosphatase Total Protein Albumin Globulin Albumin/Globulin Ratio Urine Color Yellow Urine Appearance Sl cloudy Urine pH 6.0 Ur Specific [place] 1.020 Urine Protein Trace H Urine Glucose (UA) Negative Urine Ketones Trace H Urine Blood Negative Urine Nitrate Negative Urine Bilirubin Negative Urine Urobilinogen 0.2 Ur Leukocyte Esterase Small H Urine RBC 0 - 2 Urine WBC 2 - 5 Ur Epithelial Cells 1 - 3 Urine Bacteria Few 05/12/17 05/12/17 05/12/17 05:40 05:46 08:21 WBC RBC Hgb Hct MCV MCH MCHC RDW Plt Count MPV Sodium 137 Potassium 3.5 L Chloride 98 Carbon Dioxide 28 Anion Gap 15 BUN 9 Creatinine 0.8 Est GFR ( Amer) > 60 Est GFR (Non-Af Amer) > 60 POC Glucose (mg/dL) 77 96 Random Glucose 90 Calcium 9.2 Total Bilirubin 1.1 AST 41 ALT 29 Alkaline Phosphatase 99 Total Protein 7.0 Albumin 3.8 Globulin 3.2 Albumin/Globulin Ratio 1.2 Urine Color Urine Appearance Urine pH Ur Specific [place] Urine Protein Urine Glucose (UA) Urine Ketones Urine Blood Urine Nitrate Urine Bilirubin Urine Urobilinogen Ur Leukocyte Esterase Urine RBC Urine WBC Ur Epithelial Cells Urine Bacteria Attending/Attestation - Attestation I have personally seen and examined this patient.: Yes I have fully participated in the care of the patient.: Yes I have reviewed all pertinent clinical information: Yes Notes (Text): 05/12/17 10:12 I have seen and examined patient with GI fellow and medical accountant. Agree with above documentation with the following additions. In brief, this is a 56 year old male with history of COPD, chronic pancreatitis, ETOH abuse who presents to hospital with complaint of abdominal pain and hematemesis which started yesterday. He has had multiple prior hospital admissions for similar prior episodes. He endorses significant ETOH consumption prior to symptom onset with multiple beers and hard liquor. He describes 6/10 intensity epigastric pain which is associated with nausea, radiating to back. He has not had any recurrent vomiting since yesterday. He had an EGD in December 2016 which showed erosive esophagitis. Review of vitals from today are normal. Additional physical examination: Abdomen: no palpable hepato/splenomegaly COPD Chronic pancreatitis ETOH abuse - abdominal pain, hematemesis - Clear liquid diet as tolerated - Anti-emetic therapy, standing for time being - ETOH withdrawal therapy as per medical team - Rectal exam performed today shows no presence of melena or gross blood, H/H stable, continue to monitor - Continue with PPI and carafate therapy - ETOH cessation counseling, patient awaiting bed placement in rehab facility - Prior imaging without cirrhotic features, no concern for varices at this time , none seen on EGD in December - No planned GI interventions, will continue to monitor patient clinical course
--- NOTE | 2017-05-12 09:42 | CARD ---
APPROVED REPORT EKG Measurement Heart [id number] <Conclusion> Normal sinus rhythm PRWP NSSTW changes
[2017-05-12] MEDS ORDERED: Magnesium Sulfate 2 GM in Sodium Chloride 0.9% 100 ML IVPB ONE (14:44)
--- NOTE | 2017-05-12 15:24 | CP.PCM.PN ---
<Pj Franklin - Last Filed: 05/12/17 15:20> Subjective - Date & Time of Evaluation Date of Evaluation: 05/12/17 Time of Evaluation: 15:21 - Subjective Subjective: Medicine Progress Note: Patient seen and assessed at bedside in ED. No acute events overnight noted by patient or nursing staff. Patient reports significant improvement in his vomiting and reports that he is only having intermittent blood tinged saliva. Patient has no other complaints at this time including fever, chills, headache, chest pain, palpitations, SOB, wheezing, cough, abdominal pain, nausea, diarrhea , constipation, urinary symptoms, skin changes or numbness/tingling/weakness of any extremity. Objective - Vital Signs/Intake and Output Vital Signs (last 24 hours): Temp Pulse Resp BP Pulse Ox 98.7 F 83 18 134/68 95 05/11/17 09:37 05/12/17 14:51 05/12/17 14:51 05/12/17 14:51 05/12/17 14:51 - Medications Medications: Current Medications Albuterol/Ipratropium (Duoneb 3 Mg/0.5 Mg (3 Ml) Ud) 3 ml IH Q2H PRN PRN Reason: Shortness of Breath Last Admin: 05/12/17 02:15 Dose: 3 ml Chlordiazepoxide (Librium) 25 mg PO Q8 SOPHIA PRN Reason: Protocol Last Admin: 05/12/17 14:50 Dose: 25 mg Folic Acid 1 mg/ Thiamine HCl 100 mg/ Multivitamins/Vitamin C 10 ml/ Dextrose 1 ,011.2 mls @ 100 mls/hr IV .Q10H7M [facility] Last Admin: 05/12/17 14:50 Dose: 100 mls/hr Magnesium Sulfate 2 gm/ Sodium (Chloride) 104 mls @ 102 mls/hr IVPB ONCE ONE Stop: 05/12/17 15:45 Last Admin: 05/12/17 15:18 Dose: 102 mls/hr Lorazepam (Ativan) 2 mg IVP Q2 PRN; Protocol PRN Reason: Anxiety Last Admin: 05/12/17 00:29 Dose: 2 mg Ondansetron HCl (Zofran Inj) 4 mg IVP Q6H SOPHIA Last Admin: 05/12/17 14:50 Dose: 4 mg Pantoprazole Sodium (Protonix Ec Tab) 40 mg PO 0600,1600 SOPHIA Sucralfate (Carafate Tab) 1 gm PO 0630,1130,1630,2200 SOPHIA Last Admin: 05/12/17 14:50 Dose: 1 gm - Labs Labs: 05/12/17 05:40 05/12/17 05:40 PT 13.6 SECONDS (9.4-12.5) H 05/11/17 11:30 INR 1.18 (0.93-1.08) H 05/11/17 11:30 APTT 27.4 Seconds (25.1-36.5) 05/11/17 11:30 - Constitutional Appears: Non-toxic, No Acute Distress - Head Exam Head Exam: ATRAUMATIC, NORMOCEPHALIC - Eye Exam Eye Exam: EOMI, Normal appearance, PERRL Pupil Exam: NORMAL ACCOMODATION - ENT Exam ENT Exam: Mucous Membranes Moist - Neck Exam Neck Exam: Full ROM, Normal Inspection. absent: Lymphadenopathy - Respiratory Exam Respiratory Exam: Clear to Ausculation Bilateral, NORMAL BREATHING PATTERN. absent: Accessory Muscle Use, Rales, Rhonchi, Wheezes, Respiratory Distress - Cardiovascular Exam Cardiovascular Exam: REGULAR RHYTHM, RRR, +S1, +S2. absent: Tachycardia - GI/Abdominal Exam GI & Abdominal Exam: Soft, Normal Bowel Sounds. absent: Distended, Firm, Guarding, Rigid, Tenderness, Rebound - Extremities Exam Extremities Exam: Full ROM, Normal Capillary Refill, Normal Inspection. absent : Calf Tenderness, Joint Swelling, Pedal Edema, Tenderness - Back Exam Back Exam: NORMAL INSPECTION - Neurological Exam Neurological Exam: Alert, Awake, CN II-XII Intact, Oriented x3 Additional comments: Tremulous on exam - Psychiatric Exam Psychiatric exam: Normal Affect, Normal Mood - Skin Skin Exam: Dry, Intact, Normal Color, Warm Assessment and Plan - Assessment and Plan (Free Text) Assessment: 56 year old male with a past medical history significant for alcohol abuse/ withdrawal, erosive esophagitis, and COPD who presents with one day of blood tinged emesis. Patient HDS and with significant improvement of his vomiting. Plan: 1. Erosive Esophagitis with Hematemesis -H/H stable at patients baseline -Protonix BID and Carafate QID -Zofran 4mg IVP Q6H -Daily CBC's -Clear Liquid Diet, will advance as tolerated -GI consulted, all recommendations appreciated 2. Alcohol Abuse/Withdrawal -Alcohol at 104 on admission -Libruim 25mg Q8 -Ativan 2mg IVP Q2 PRN -Banana Bag in D5W at 100mls/hr -CIWA Assessments Q4 -Aspiration, Fall and Seizure precautions 3. History of COPD -Chest X-Ray showed no active pulmonary disease -Duonebs Q2 PRN GI Prophylaxis: Protonix DVT Prophylaxis: SCD's Patient seen and case discussed with attending, Dr. Narvaez. <Dale Narvaez - Last Filed: 05/12/17 15:39> Objective - Vital Signs/Intake and Output Vital Signs (last 24 hours): Temp Pulse Resp BP Pulse Ox 98.7 F 83 18 134/68 95 05/11/17 09:37 05/12/17 14:51 05/12/17 14:51 05/12/17 14:51 05/12/17 14:51 - Medications Medications: Current Medications Albuterol/Ipratropium (Duoneb 3 Mg/0.5 Mg (3 Ml) Ud) 3 ml IH Q2H PRN PRN Reason: Shortness of Breath Last Admin: 05/12/17 02:15 Dose: 3 ml Chlordiazepoxide (Librium) 25 mg PO Q8 SOPHIA PRN Reason: Protocol Last Admin: 05/12/17 14:50 Dose: 25 mg Folic Acid 1 mg/ Thiamine HCl 100 mg/ Multivitamins/Vitamin C 10 ml/ Dextrose 1 ,011.2 mls @ 100 mls/hr IV .Q10H7M SOP[facility]IA Last Admin: 05/12/17 14:50 Dose: 100 mls/hr Magnesium Sulfate 2 gm/ Sodium (Chloride) 104 mls @ 102 mls/hr IVPB ONCE ONE Stop: 05/12/17 15:45 Last Admin: 05/12/17 15:18 Dose: 102 mls/hr Lorazepam (Ativan) 2 mg IVP Q2 PRN; Protocol PRN Reason: Anxiety Last Admin: 05/12/17 00:29 Dose: 2 mg Ondansetron HCl (Zofran Inj) 4 mg IVP Q6H SOPHIA Last Admin: 05/12/17 14:50 Dose: 4 mg Pantoprazole Sodium (Protonix Ec Tab) 40 mg PO 0600,1600 SOPHIA Sucralfate (Carafate Tab) 1 gm PO 0630,1130,1630,2200 SOPHIA Last Admin: 05/12/17 14:50 Dose: 1 gm - Labs Labs: 05/12/17 05:40 05/12/17 05:40 PT 13.6 SECONDS (9.4-12.5) H 05/11/17 11:30 INR 1.18 (0.93-1.08) H 05/11/17 11:30 APTT 27.4 Seconds (25.1-36.5) 05/11/17 11:30 Attending/Attestation - Attestation I have personally seen and examined this patient.: Yes I have fully participated in the care of the patient.: Yes I have reviewed all pertinent clinical information, including history, physical exam and plan: Yes Notes (Text): 05/12/17 15:36 56 year old male with past medical history of erosive esophagitis, COPD and chronic ETOH abuse who presented with complaint of hematemesis, mild abdominal pain and alcohol withdrawal. Abdominal pain has improved. N/V has resolved. GI evaluation was appreciated. Continue with protonix bid, carafate and zofran prn. Continue with liquid diet for now and advance as tolerated. Continue with banana bag and librium/ativan for withdrawal symptoms. He was counselled on alcohol abstinence. Will replete and repeat lytes (potassium/magnesium). Dale Narvaez MD Hospitalist.
[2017-05-12] MEDS: Pantoprazole 40 mg EC Tab PO SCH (16:48)
[2017-05-13] MEDS: Pantoprazole 40 mg EC Tab PO SCH ×2 (05:32→17:19)
[2017-05-13] MEDS: Folic Acid 1 MG, Thiamine 100 MG, Multivitamin (MVI) 10 ML in Dextrose 5% In Water 1,00... IV SCH (05:41)
[2017-05-13 06:53] LABS: MEAN CELL VOLUME 71.5 fl (80.0-105.0); MEAN CORPUSCULAR HGB CONC 29.4 g/dl (31.0-37.0); MEAN PLATELET VOLUME 9.9 fl (7.0-11.0); RBC 4.28 10^6/uL (3.5-6.1); RED CELL DISTRIBUTION WIDTH 20.1 % (11.5-14.5); WHITE BLOOD COUNT 5.3 10^3/ul (4.5-11.0)
[2017-05-13 07:17] LABS: ALB/GLOB RATIO 1.1 (1.1-1.8); ALBUMIN 3.8 g/dL (3.0-4.8); ALT/SGPT 24 U/L (7-56); AST/SGOT 42 U/L (17-59); BLOOD UREA NITROGEN 7 mg/dL (7-21); CALCIUM 9.1 mg/dL (8.4-10.5); GFR AFRICAN-AMERICAN > 60; GFR NON-AFRICAN AMERICAN > 60; MAGNESIUM 1.9 mg/dL (1.7-2.2)
[2017-05-13] MEDS: Albuterol-Ipratrop 3 mg / 0.5 (3 ml) UD IH PRN ×2 (07:43→13:25)
--- NOTE | 2017-05-13 11:06 | CP.PCM.PN ---
<Albin Hannon - Last Filed: 05/13/17 12:24> Subjective - Date & Time of Evaluation Date of Evaluation: 05/13/17 Time of Evaluation: 07:00 - Subjective Subjective: GI progress note - Joao Parvez PGY2 Patient seen and examined at bedside this morning. No acute overnight events or new complaints reported. He reported one episode of emesis overnight but otherwise no other issues. States he feels nauseous at times however zofran has been helping. No overt signs of bleeding. Denies chest pain, palpitations, SOB. 12point ROS as per above otherwise negative Objective - Vital Signs/Intake and Output Vital Signs (last 24 hours): Temp Pulse Resp BP Pulse Ox 97.6 F 74 18 120/87 95 05/13/17 08:16 05/13/17 08:16 05/13/17 08:16 05/13/17 08:16 05/13/17 08:16 Intake and Output: 05/13/17 05/13/17 06:59 18:59 Intake Total 1200 Balance 1200 - Medications Medications: Current Medications Albuterol/Ipratropium (Duoneb 3 Mg/0.5 Mg (3 Ml) Ud) 3 ml IH Q2H PRN PRN Reason: Shortness of Breath Last Admin: 05/13/17 07:43 Dose: 3 ml Chlordiazepoxide (Librium) 25 mg PO Q8 [facility] PRN Reason: Protocol Last Admin: 05/13/17 05:32 Dose: 25 mg Folic Acid 1 mg/ Thiamine HCl 100 mg/ Multivitamins/Vitamin C 10 ml/ Dextrose 1 ,011.2 mls @ 100 mls/hr IV .Q10H7M [facility] Last Admin: 05/13/17 05:41 Dose: 100 mls/hr Lorazepam (Ativan) 2 mg IVP Q2 PRN; Protocol PRN Reason: Anxiety Last Admin: 05/13/17 01:13 Dose: 2 mg Ondansetron HCl (Zofran Inj) 4 mg IVP Q6H [facility] Last Admin: 05/13/17 05:32 Dose: 4 mg Pantoprazole Sodium (Protonix Ec Tab) 40 mg PO 0600,1600 [facility] Last Admin: 05/13/17 05:32 Dose: 40 mg Sucralfate (Carafate Tab) 1 gm PO 0630,1130,1630,2200 [facility] Last Admin: 05/13/17 05:32 Dose: 1 gm - Labs Labs: 05/13/17 06:15 05/13/17 06:15 PT 13.6 SECONDS (9.4-12.5) H 05/11/17 11:30 INR 1.18 (0.93-1.08) H 05/11/17 11:30 APTT 27.4 Seconds (25.1-36.5) 05/11/17 11:30 - Constitutional Appears: Unkempt - Head Exam Head Exam: ATRAUMATIC, NORMAL INSPECTION, NORMOCEPHALIC - Eye Exam Eye Exam: EOMI Pupil Exam: PERRL - ENT Exam ENT Exam: Mucous Membranes Moist - Respiratory Exam Respiratory Exam: absent: Rales, Rhonchi, Wheezes - Cardiovascular Exam Cardiovascular Exam: +S1, +S2. absent: Gallop, JVD, Rubs - GI/Abdominal Exam GI & Abdominal Exam: Distended, Soft. absent: Firm, Guarding, Rigid, Tenderness , Rebound Additional comments: no hepatosplenomegaly - Extremities Exam Extremities Exam: Normal Inspection. absent: Pedal Edema - Neurological Exam Neurological Exam: Alert, Awake, CN II-XII Intact, Oriented x3 - Psychiatric Exam Psychiatric exam: Normal Affect, Normal Mood - Skin Skin Exam: Dry, Intact, Normal Color, Warm Assessment and Plan - Assessment and Plan (Free Text) Plan: 56yo male with history of alcohol abuse, chronic pancreatitis, erosive esophagitis and chronic anemia presents c/o epigastric abdominal pain associated with coffee-ground emesis. 1. Erosive esophagitis 2. Alcohol abuse 3. Chronic pancreatitis 4. Microcytic anemia Plan: -Continue with Protonix PO BID and carafate for erosive esophagitis -Standing antiemetics for nausea/vomiting -Continue with multivitamin/thiamine/folate -Alcohol cessation counseling -CLD advanced as tolerated -Hemoglobin noted to be around baseline; no overt signs of blood loss; rectal exam revealed no gross blood -EGD from 12/2016 reviewed; revealed LA Grade C/D erosive esophagitis, gastritis , duodenitis, no esophageal varices -Recommend follow up with GI as an outpatient for age-appropriate screening colonoscopy -No planned GI interventions at this time, continue current medical management as per primary team, we will sign off this case; please reconsult as deemed necessary. Thank you for this consult. <Sachin Monsivais - Last Filed: 05/13/17 13:34> Objective - Vital Signs/Intake and Output Vital Signs (last 24 hours): Temp Pulse Resp BP Pulse Ox 97.6 F 74 18 120/87 95 05/13/17 08:16 05/13/17 08:16 05/13/17 08:16 05/13/17 08:16 05/13/17 08:16 Intake and Output: 05/13/17 05/13/17 06:59 18:59 Intake Total 1200 Balance 1200 - Medications Medications: Current Medications Albuterol/Ipratropium (Duoneb 3 Mg/0.5 Mg (3 Ml) Ud) 3 ml IH Q2H PRN PRN Reason: Shortness of Breath Last Admin: 05/13/17 13:25 Dose: 3 ml Chlordiazepoxide (Librium) 25 mg PO Q8 [facility] PRN Reason: Protocol Last Admin: 05/13/17 05:32 Dose: 25 mg Folic Acid 1 mg/ Thiamine HCl 100 mg/ Multivitamins/Vitamin C 10 ml/ Dextrose 1 ,011.2 mls @ 100 mls/hr IV .Q10H7M [facility] Last Admin: 05/13/17 05:41 Dose: 100 mls/hr Lorazepam (Ativan) 2 mg IVP Q2 PRN; Protocol PRN Reason: Anxiety Last Admin: 05/13/17 12:21 Dose: 2 mg Ondansetron HCl (Zofran Inj) 4 mg IVP Q6H [facility] Last Admin: 05/13/17 12:23 Dose: 4 mg Pantoprazole Sodium (Protonix Ec Tab) 40 mg PO 0600,1600 [facility] Last Admin: 05/13/17 05:32 Dose: 40 mg Sucralfate (Carafate Tab) 1 gm PO 0630,1130,1630,2200 [facility] Last Admin: 05/13/17 12:21 Dose: 1 gm - Labs Labs: 05/13/17 06:15 05/13/17 06:15 PT 13.6 SECONDS (9.4-12.5) H 05/11/17 11:30 INR 1.18 (0.93-1.08) H 05/11/17 11:30 APTT 27.4 Seconds (25.1-36.5) 05/11/17 11:30 Attending/Attestation - Attestation I have personally seen and examined this patient.: Yes I have fully participated in the care of the patient.: Yes I have reviewed all pertinent clinical information, including history, physical exam and plan: Yes Notes (Text): 05/13/17 13:33 56 year old male with h/o etoh abuse admitted with vomiting. 1. Erosive esophagitis 2. Alcohol abuse Plan: -recommend PPI BID -may also give carafate 1 g PO QID -no overt GI bleedign at this point -hgb stable -advance diet as tolerated -will sign off
--- NOTE | 2017-05-13 13:48 | CP.PCM.PN ---
<Pj Franklin - Last Filed: 05/13/17 15:11> Subjective - Date & Time of Evaluation Date of Evaluation: 05/13/17 Time of Evaluation: 13:42 - Subjective Subjective: Medicine Progress Note: Patient seen and assessed at bedside in ED. Patient reports that his breathing was "tight" this AM but that he had a Duoneb treatment with resolution of this complaint. Patient has no other complaints at this time including fever, chills , headache, chest pain, palpitations, wheezing, cough, abdominal pain, nausea, diarrhea, constipation, urinary symptoms, skin changes or numbness/tingling/ weakness of any extremity. Objective - Vital Signs/Intake and Output Vital Signs (last 24 hours): Temp Pulse Resp BP Pulse Ox 97.6 F 74 18 120/87 95 05/13/17 08:16 05/13/17 08:16 05/13/17 08:16 05/13/17 08:16 05/13/17 08:16 Intake and Output: 05/13/17 05/13/17 06:59 18:59 Intake Total 1200 Balance 1200 - Medications Medications: Current Medications Albuterol/Ipratropium (Duoneb 3 Mg/0.5 Mg (3 Ml) Ud) 3 ml IH Q2H PRN PRN Reason: Shortness of Breath Last Admin: 05/13/17 13:25 Dose: 3 ml Chlordiazepoxide (Librium) 25 mg PO Q8 [facility] PRN Reason: Protocol Last Admin: 05/13/17 05:32 Dose: 25 mg Folic Acid 1 mg/ Thiamine HCl 100 mg/ Multivitamins/Vitamin C 10 ml/ Dextrose 1 ,011.2 mls @ 100 mls/hr IV .Q10H7M [facility] Last Admin: 05/13/17 05:41 Dose: 100 mls/hr Lorazepam (Ativan) 2 mg IVP Q2 PRN; Protocol PRN Reason: Anxiety Last Admin: 05/13/17 12:21 Dose: 2 mg Ondansetron HCl (Zofran Inj) 4 mg IVP Q6H [facility] Last Admin: 05/13/17 12:23 Dose: 4 mg Pantoprazole Sodium (Protonix Ec Tab) 40 mg PO 0600,1600 [facility] Last Admin: 05/13/17 05:32 Dose: 40 mg Sucralfate (Carafate Tab) 1 gm PO 0630,1130,1630,2200 [facility] Last Admin: 05/13/17 12:21 Dose: 1 gm - Labs Labs: 05/13/17 06:15 05/13/17 06:15 PT 13.6 SECONDS (9.4-12.5) H 05/11/17 11:30 INR 1.18 (0.93-1.08) H 05/11/17 11:30 APTT 27.4 Seconds (25.1-36.5) 05/11/17 11:30 - Constitutional Appears: Non-toxic, No Acute Distress - Head Exam Head Exam: ATRAUMATIC, NORMOCEPHALIC - Eye Exam Eye Exam: EOMI, PERRL - ENT Exam ENT Exam: Mucous Membranes Moist - Neck Exam Neck Exam: Full ROM. absent: Lymphadenopathy - Respiratory Exam Respiratory Exam: Clear to Ausculation Bilateral, NORMAL BREATHING PATTERN. absent: Accessory Muscle Use, Decreased Breath Sounds, Rales, Rhonchi, Wheezes, Respiratory Distress - Cardiovascular Exam Cardiovascular Exam: REGULAR RHYTHM, RRR, +S1, +S2 - GI/Abdominal Exam GI & Abdominal Exam: Soft, Normal Bowel Sounds. absent: Tenderness - Extremities Exam Extremities Exam: Full ROM, Normal Capillary Refill, Normal Inspection. absent : Calf Tenderness, Joint Swelling, Pedal Edema, Tenderness - Neurological Exam Neurological Exam: Alert, Awake, CN II-XII Intact, Oriented x3 - Psychiatric Exam Psychiatric exam: Normal Affect, Normal Mood - Skin Skin Exam: Dry, Intact, Normal Color, Warm Assessment and Plan - Assessment and Plan (Free Text) Assessment: 56 year old male with a past medical history significant for alcohol abuse/ withdrawal, erosive esophagitis, and COPD who presents with one day of blood tinged emesis. Patient HDS and with significant improvement of his vomiting. Plan: 1. Erosive Esophagitis with Hematemesis -H/H stable at patients baseline -Continue Protonix BID and Carafate QID -Continue Zofran 4mg IVP Q6H -Daily CBC's -Heart healthy diet, will advance as tolerated -GI consulted, all recommendations appreciated 2. Alcohol Abuse/Withdrawal -Alcohol at 104 on admission -Libruim 25mg Q8 -Ativan 2mg IVP Q2 PRN -Continue Folic Acid, Thiamine and MV supplementation -CIWA Assessments Q4 -Aspiration, Fall and Seizure precautions 3. History of COPD -Chest X-Ray showed no active pulmonary disease -Duonebs Q2 PRN GI Prophylaxis: Protonix DVT Prophylaxis: SCD's Patient seen and case discussed with attending, Dr. Xiong. Yocasta Franklin, PGY-1 <Kike Xiong - Last Filed: 05/13/17 16:51> Objective - Vital Signs/Intake and Output Vital Signs (last 24 hours): Temp Pulse Resp BP Pulse Ox 97.6 F 74 18 120/87 95 05/13/17 08:16 05/13/17 08:16 05/13/17 08:16 05/13/17 08:16 05/13/17 08:16 Intake and Output: 05/13/17 05/13/17 06:59 18:59 Intake Total 1200 Balance 1200 - Medications Medications: Current Medications Albuterol/Ipratropium (Duoneb 3 Mg/0.5 Mg (3 Ml) Ud) 3 ml IH Q2H PRN PRN Reason: Shortness of Breath Last Admin: 05/13/17 13:25 Dose: 3 ml Chlordiazepoxide (Librium) 25 mg PO Q8 [facility] PRN Reason: Protocol Last Admin: 05/13/17 15:11 Dose: 25 mg Folic Acid (Folic Acid) 1 mg PO DAILY [facility] Lorazepam (Ativan) 2 mg IVP Q2 PRN; Protocol PRN Reason: Anxiety Last Admin: 05/13/17 12:21 Dose: 2 mg Multivitamins/Minerals (Therapeutic-M Tab) 1 tab PO 0800 [facility] Ondansetron HCl (Zofran Inj) 4 mg IVP Q6H [facility] Last Admin: 05/13/17 12:23 Dose: 4 mg Pantoprazole Sodium (Protonix Ec Tab) 40 mg PO 0600,1600 [facility] Last Admin: 05/13/17 05:32 Dose: 40 mg Sucralfate (Carafate Tab) 1 gm PO 0630,1130,1630,2200 [facility] Last Admin: 05/13/17 12:21 Dose: 1 gm Thiamine HCl (Vitamin B1 Tab) 100 mg PO DAILY [facility] - Labs Labs: 05/13/17 06:15 05/13/17 06:15 PT 13.6 SECONDS (9.4-12.5) H 05/11/17 11:30 INR 1.18 (0.93-1.08) H 05/11/17 11:30 APTT 27.4 Seconds (25.1-36.5) 05/11/17 11:30 Attending/Attestation - Attestation I have personally seen and examined this patient.: Yes I have fully participated in the care of the patient.: Yes I have reviewed all pertinent clinical information, including history, physical exam and plan: Yes Notes (Text): 05/13/17 16:46 Patient was seen and examined with medical office coordinator. Agreed with assessment and plan. 56 year old male with past medical history of erosive esophagitis, COPD and chronic ETOH abuse who presented with complaint of hematemesis, mild abdominal pain and alcohol withdrawal.Patient hemoglobin is stable, has H/O erosive esophagitis, on PPI, tolerating diet. Issue of ongoing alcohol abuse was discussed in detail with him.He has been advised not to use NSAID. Management plan was discussed in detail with patient. Education was provided.
[2017-05-13 18:00] VITALS: RESP 20
[2017-05-14] MEDS: Pantoprazole 40 mg EC Tab PO SCH (05:50)
[2017-05-14 07:05] LABS: ALB/GLOB RATIO 1.1 (1.1-1.8); ALBUMIN 3.7 g/dL (3.0-4.8); ALT/SGPT 26 U/L (7-56); AST/SGOT 38 U/L (17-59); BLOOD UREA NITROGEN 9 mg/dL (7-21); CALCIUM 9.5 mg/dL (8.4-10.5); GFR AFRICAN-AMERICAN > 60; GFR NON-AFRICAN AMERICAN > 60; MAGNESIUM 1.6 mg/dL (1.7-2.2)
[2017-05-14] MEDS ORDERED: Magnesium Sulfate 2 GM in Sodium Chloride 0.9% 100 ML IVPB ONE (07:17)
[2017-05-14 07:56] LABS: MEAN CELL VOLUME 72.1 fl (80.0-105.0); MEAN CORPUSCULAR HEMOGLOBIN 21.5 pg (25.0-35.0); MEAN CORPUSCULAR HGB CONC 29.8 g/dl (31.0-37.0); MEAN PLATELET VOLUME 10.4 fl (7.0-11.0); RBC 4.19 10^6/uL (3.5-6.1); RED CELL DISTRIBUTION WIDTH 20.4 % (11.5-14.5); WHITE BLOOD COUNT 6.9 10^3/ul (4.5-11.0)
[2017-05-14] MEDS ORDERED: Multivitamin With Minerals Tab PO SCH (08:00)
[2017-05-14 08:42] VITALS: BP 133/87; PULSE 98; TEMP 98.2; O2SAT 96
--- NOTE | 2017-05-14 19:11 | CP.PCM.DIS ---
<Pj Franklin - Last Filed: 05/14/17 19:07> Provider - Provider Date of Admission: 05/11/17 15:50 Attending physician: Kike Xiong MD Consults: BRIAN: Yodit Time Spent in preparation of Discharge (in minutes): 49 Hospital Course - Lab Results Lab Results: Most Recent Lab Values WBC 6.9 10^3/ul (4.5-11.0) D 05/14/17 05:40 RBC 4.19 10^6/uL (3.5-6.1) 05/14/17 05:40 Hgb 9.0 g/dL (14.0-18.0) L 05/14/17 05:40 Hct 30.2 % (42.0-52.0) L 05/14/17 05:40 MCV 72.1 fl (80.0-105.0) L 05/14/17 05:40 MCH 21.5 pg (25.0-35.0) L 05/14/17 05:40 MCHC 29.8 g/dl (31.0-37.0) L 05/14/17 05:40 RDW 20.4 % (11.5-14.5) H 05/14/17 05:40 Plt Count 148 10^3/uL (120.0-450.0) 05/14/17 05:40 MPV 10.4 fl (7.0-11.0) 05/14/17 05:40 PT 13.6 SECONDS (9.4-12.5) H 05/11/17 11:30 INR 1.18 (0.93-1.08) H 05/11/17 11:30 APTT 27.4 Seconds (25.1-36.5) 05/11/17 11:30 Sodium 134 mmol/L (132-148) 05/14/17 05:40 Potassium 3.9 mmol/L (3.6-5.0) 05/14/17 05:40 Chloride 97 mmol/L (98-107) L 05/14/17 05:40 Carbon Dioxide 26 mmol/L (21-33) 05/14/17 05:40 Anion Gap 15 (10-20) 05/14/17 05:40 BUN 9 mg/dL (7-21) 05/14/17 05:40 Creatinine 0.9 mg/dl (0.8-1.5) 05/14/17 05:40 Est GFR ( Amer) > 60 05/14/17 05:40 Est GFR (Non-Af Amer) > 60 05/14/17 05:40 POC Glucose (mg/dL) 96 mg/dL (65-110) 05/12/17 08:21 Random Glucose 112 mg/dL (70-110) H 05/14/17 05:40 Calcium 9.5 mg/dL (8.4-10.5) 05/14/17 05:40 Magnesium 1.6 mg/dL (1.7-2.2) L 05/14/17 05:40 Total Bilirubin 0.5 mg/dL (0.2-1.3) 05/14/17 05:40 AST 38 U/L (17-59) 05/14/17 05:40 ALT 26 U/L (7-56) 05/14/17 05:40 Alkaline Phosphatase 107 U/L (38-126) 05/14/17 05:40 Lactate Dehydrogenase 539 U/L (333-699) 05/11/17 11:30 Total Creatine Kinase 62 U/L (35-230) 05/11/17 11:30 Troponin I < 0.01 ng/mL 05/11/17 11:30 Total Protein 7.1 g/dL (5.8-8.3) 05/14/17 05:40 Albumin 3.7 g/dL (3.0-4.8) 05/14/17 05:40 Globulin 3.4 gm/dL 05/14/17 05:40 Albumin/Globulin Ratio 1.1 (1.1-1.8) 05/14/17 05:40 Urine Color Yellow (YELLOW) 05/12/17 03:55 Urine Appearance Sl cloudy (CLEAR) 05/12/17 03:55 Urine pH 6.0 (4.7-8.0) 05/12/17 03:55 Ur Specific [place] 1.020 (1.005-1.035) 05/12/17 03:55 Urine Protein Trace mg/dL (<30 mg/dL) H 05/12/17 03:55 Urine Glucose (UA) Negative mg/dL (NEGATIVE) 05/12/17 03:55 Urine Ketones Trace mg/dL (NEGATIVE) H 05/12/17 03:55 Urine Blood Negative (NEGATIVE) 05/12/17 03:55 Urine Nitrate Negative (NEGATIVE) 05/12/17 03:55 Urine Bilirubin Negative (NEGATIVE) 05/12/17 03:55 Urine Urobilinogen 0.2 E.U./dL (<1 E.U./dL) 05/12/17 03:55 Ur Leukocyte Esterase Small Vanda/uL (NEGATIVE) H 05/12/17 03:55 Urine RBC 0 - 2 /hpf (0-2) 05/12/17 03:55 Urine WBC 2 - 5 /hpf (0-6) 05/12/17 03:55 Ur Epithelial Cells 1 - 3 /hpf (0-5) 05/12/17 03:55 Urine Bacteria Few (NEG) 05/12/17 03:55 Alcohol, Quantitative 104 mg/dL (0-10) H 05/11/17 11:30 - Hospital Course Hospital Course: 56 year old male with a past medical history significant for alcohol abuse/ withdrawal, erosive esophagitis, and COPD who presents with one day of blood tinged emesis and alcohol intoxication. Patient was started on IV protonix drip. A CBC showed patient to be at his baseline H/H. GI was consulted and recommended and started patient on Protonix BID and Carafate QID. He remained HDS and experienced complete resolution of his vomiting. Patient was started on scheduled librium and as needed ativan, that were both tapered based on Q4 CIWA assessments. Patient was supplemented with folic acid, thiamine and MV. Aspiration, fall and seizure precautions were used. He was started on Duonebs as needed for history of COPD. Patient was discharged on 05/14/17 with prescriptions for protonix, carafate, MV, folic acid, thiamine, and magox. - Date & Time of H&P Date of H&P: 05/11/17 Time of H&P: 17:01 Discharge Exam - Head Exam Head Exam: ATRAUMATIC, NORMOCEPHALIC - Eye Exam Eye Exam: EOMI, Normal appearance, PERRL - Respiratory Exam Respiratory Exam: Clear to PA & Lateral, NORMAL BREATHING PATTERN, UNREMARKABLE - Cardiovascular Exam Cardiovascular Exam: REGULAR RHYTHM - GI/Abdominal Exam GI & Abdominal Exam: Normal Bowel Sounds, Unremarkable - Extremities Exam Extremities exam: full ROM, normal capillary refill, normal inspection, pedal pulses present - Neurological Exam Neurological exam: Alert, CN II-XII Intact, Normal Gait, Oriented x3, Reflexes Normal - Psychiatric Exam Psychiatric exam: Normal Affect, Normal Mood - Skin Skin Exam: Dry, Intact, Normal Color, Warm Discharge Plan - Discharge Medications Prescriptions: Folic Acid 1 mg PO DAILY #14 tab Magnesium Oxide [Magox 400] 400 mg PO BID #6 tablet Multimineral/Multivitamin [Therapeutic-M Tab] 1 tab PO 0800 #14 tab Pantoprazole [Protonix EC Tab] 40 mg PO 0600,1600 #28 ect Sucralfate [Carafate Tab] 1 gm PO 0630,1130,1630,2200 #56 tab Thiamine [Vitamin B1 Tab] 100 mg PO DAILY #14 tab - Follow Up Plan Condition: FAIR Disposition: HOME/ ROUTINE Instructions: Alcohol Withdrawal, Alcohol Abuse and Alcoholism (DC), Effects of Alcohol on Your Health Additional Instructions: Please follow up with your PMD within one to two weeks Please take all medications as prescribed If your symptoms worsen or persist, please seek emergency medical attention Referrals: Sachin Monsivais MD [Staff Provider] - <Kike Xiong - Last Filed: 05/15/17 15:08> Provider - Provider Date of Admission: 05/11/17 15:50 Attending physician: Kike Xiong MD Hospital Course - Lab Results Lab Results: Most Recent Lab Values WBC 6.9 10^3/ul (4.5-11.0) D 05/14/17 05:40 RBC 4.19 10^6/uL (3.5-6.1) 05/14/17 05:40 Hgb 9.0 g/dL (14.0-18.0) L 05/14/17 05:40 Hct 30.2 % (42.0-52.0) L 05/14/17 05:40 MCV 72.1 fl (80.0-105.0) L 05/14/17 05:40 MCH 21.5 pg (25.0-35.0) L 05/14/17 05:40 MCHC 29.8 g/dl (31.0-37.0) L 05/14/17 05:40 RDW 20.4 % (11.5-14.5) H 05/14/17 05:40 Plt Count 148 10^3/uL (120.0-450.0) 05/14/17 05:40 MPV 10.4 fl (7.0-11.0) 05/14/17 05:40 PT 13.6 SECONDS (9.4-12.5) H 05/11/17 11:30 INR 1.18 (0.93-1.08) H 05/11/17 11:30 APTT 27.4 Seconds (25.1-36.5) 05/11/17 11:30 Sodium 134 mmol/L (132-148) 05/14/17 05:40 Potassium 3.9 mmol/L (3.6-5.0) 05/14/17 05:40 Chloride 97 mmol/L (98-107) L 05/14/17 05:40 Carbon Dioxide 26 mmol/L (21-33) 05/14/17 05:40 Anion Gap 15 (10-20) 05/14/17 05:40 BUN 9 mg/dL (7-21) 05/14/17 05:40 Creatinine 0.9 mg/dl (0.8-1.5) 05/14/17 05:40 Est GFR ( Amer) > 60 05/14/17 05:40 Est GFR (Non-Af Amer) > 60 05/14/17 05:40 POC Glucose (mg/dL) 96 mg/dL (65-110) 05/12/17 08:21 Random Glucose 112 mg/dL (70-110) H 05/14/17 05:40 Calcium 9.5 mg/dL (8.4-10.5) 05/14/17 05:40 Magnesium 1.6 mg/dL (1.7-2.2) L 05/14/17 05:40 Total Bilirubin 0.5 mg/dL (0.2-1.3) 05/14/17 05:40 AST 38 U/L (17-59) 05/14/17 05:40 ALT 26 U/L (7-56) 05/14/17 05:40 Alkaline Phosphatase 107 U/L (38-126) 05/14/17 05:40 Lactate Dehydrogenase 539 U/L (333-699) 05/11/17 11:30 Total Creatine Kinase 62 U/L (35-230) 05/11/17 11:30 Troponin I < 0.01 ng/mL 05/11/17 11:30 Total Protein 7.1 g/dL (5.8-8.3) 05/14/17 05:40 Albumin 3.7 g/dL (3.0-4.8) 05/14/17 05:40 Globulin 3.4 gm/dL 05/14/17 05:40 Albumin/Globulin Ratio 1.1 (1.1-1.8) 05/14/17 05:40 Urine Color Yellow (YELLOW) 05/12/17 03:55 Urine Appearance Sl cloudy (CLEAR) 05/12/17 03:55 Urine pH 6.0 (4.7-8.0) 05/12/17 03:55 Ur Specific [place] 1.020 (1.005-1.035) 05/12/17 03:55 Urine Protein Trace mg/dL (<30 mg/dL) H 05/12/17 03:55 Urine Glucose (UA) Negative mg/dL (NEGATIVE) 05/12/17 03:55 Urine Ketones Trace mg/dL (NEGATIVE) H 05/12/17 03:55 Urine Blood Negative (NEGATIVE) 05/12/17 03:55 Urine Nitrate Negative (NEGATIVE) 05/12/17 03:55 Urine Bilirubin Negative (NEGATIVE) 05/12/17 03:55 Urine Urobilinogen 0.2 E.U./dL (<1 E.U./dL) 05/12/17 03:55 Ur Leukocyte Esterase Small Vanda/uL (NEGATIVE) H 05/12/17 03:55 Urine RBC 0 - 2 /hpf (0-2) 05/12/17 03:55 Urine WBC 2 - 5 /hpf (0-6) 05/12/17 03:55 Ur Epithelial Cells 1 - 3 /hpf (0-5) 05/12/17 03:55 Urine Bacteria Few (NEG) 05/12/17 03:55 Alcohol, Quantitative 104 mg/dL (0-10) H 05/11/17 11:30 Attending/Attestation - Attestation I have personally seen and examined this patient.: Yes I have fully participated in the care of the patient.: Yes I have reviewed all pertinent clinical information, including history, physical exam and plan: Yes Notes (Text): 05/15/17 15:07 Patient was seen and examined with diploma medical assistant. Agreed with assessment and plan. 56 year old male with past medical history of erosive esophagitis, COPD and chronic ETOH abuse who presented with complaint of hematemesis, mild abdominal pain and alcohol withdrawal. Patient hemoglobin is stable, has H/O erosive esophagitis, on PPI, tolerating diet.He has been advised not to use NSAID. Issue of ongoing alcohol abuse and compliance with medication was discussed in detail with him. Prognosis is guarded. Management plan was discussed in detail with patient. Education was provided.
== END 2017-05-14 14:28 | disposition home or self-care (01) | DRG 750 ==
LOC: ED 09:06 → ERH 15:50 → 3RNO 05-12 22:19
PROVIDERS: ADMIT Internal Medicine; ATTEND Internal Medicine
DX: F10.239 Alcohol dependence with withdrawal, unspecified (principal); K92.0 Hematemesis; K29.80 Duodenitis without bleeding; K22.10 Ulcer of esophagus without bleeding; J44.9 Chronic obstructive pulmonary disease, unspecified; K86.1 Other chronic pancreatitis; K29.70 Gastritis, unspecified, without bleeding; E11.9 Type 2 diabetes mellitus without complications; D50.9 Iron deficiency anemia, unspecified; Y90.5 Blood alcohol level of 100-119 mg/100 ml; Z87.19 Personal history of other diseases of the digestive system

== ENCOUNTER 2017-05-17 11:51 | Emergency (ER) | payer MEDICAID ==
--- NOTE | 2017-05-17 12:03 | ED PDOC ---
Arrival/HPI - General Historian: Patient - History of Present Illness Time/Duration: 24 hours Symptom Onset: Gradual Symptom Course: Unchanged Activities at Onset: Light Context: Other (Garage) <Yoan Coyle - Last Filed: 05/17/17 21:55> <Blane Mcgregor - Last Filed: 05/18/17 02:26> - General Time Seen by Provider: 05/17/17 11:53 - History of Present Illness Narrative History of Present Illness (Text): 05/17/17 12:00 56 year old male, well-known to the Emergency department, with past medical history of COPD, diabetes, anemia, pancreatitis, anxiety and alcohol abuse, presents to the Emergency department complaining of suicidal ideation today. Patient was recently discharged from the hospital 3 days ago for alcohol intoxication. Patient informs suicidal ideation but denies any plan, for which he requests psychiatric evaluation. Patient informs living in a garage and smoking, drinking beer and vodka regularly. Patient denies any other somatic complaints. Patient denies any fever, chills, nausea, vomiting, diarrhea, abdominal pain, chest pain, shortness of breath or any other complaints. PMD: Dr. Alexander (Yoan Coyle) Associated Symptoms (Text): 05/17/17 12:40 Well-known to the emergency department staff. Patient was discharged from the hospital 3 days ago after admission for alcohol withdrawal. He has been drinking again and reports that since this morning he is suicidal. He has no plan. He wants to be seen by crisis. (Yoan Coyle) Past Medical History - Provider Review Nursing Documentation Reviewed: Yes - Past History Past History: No Previous - Infectious Disease Hx of Infectious Diseases: None - Tetanus Immunization Tetanus Immunization: Unknown - Cardiac Hx Cardiac Disorders: Yes - Pulmonary Hx Chronic Obstructive Pulmonary Disease (COPD): Yes - Neurological Hx Neurological Disorder: No - HEENT Hx HEENT Disorder: No - Renal Hx Renal Disorder: No - Endocrine/Metabolic Hx Diabetes Mellitus Type 2: Yes - Hematological/Oncological Hx Blood Disorders: Yes Hx Anemia: Yes Hx Hepatitis C: No - Integumentary Hx Dermatological Disorder: No - Musculoskeletal/Rheumatological Hx Musculoskeletal Disorders: Yes Hx Back Pain: Yes Hx Falls: No - Gastrointestinal Hx Gastrointestinal Disorders: Yes Hx Gastritis: Yes Hx Gastroesophageal Reflux: Yes Hx Gastrointestinal Ulcer: Yes Hx Pancreatitis: Yes - Genitourinary/Gynecological Hx Genitourinary Disorders: No - Psychiatric Hx Psychophysiologic Disorder: Yes Hx Anxiety: Yes Hx Substance Use: No Other/Comment: alcohol abuse - Surgical History Other/Comment: orcchectomy, ventral and inguinal hernia repair - Anesthesia Hx Anesthesia: Yes Hx Anesthesia Reactions: No Hx Malignant Hyperthermia: No - Suicidal Assessment Feels Threatened In Home Enviroment: No <Yoan Coyle - Last Filed: 05/17/17 21:55> Family/Social History - Physician Review Nursing Documentation Reviewed: Yes Family/Social History: No Known Family HX Smoking Status: Light Smoker < 10 Cigarettes Daily Hx Alcohol Use: Yes Amount per day: 10 Hx Substance Use: No Hx Substance Use Treatment: No <Yoan Coyle - Last Filed: 05/17/17 21:55> Allergies/Home Meds <Yoan Coyle - Last Filed: 05/17/17 21:55> <Blane Mcgregor - Last Filed: 05/18/17 02:26> Allergies/Adverse Reactions: Allergies Penicillins Allergy (Mild, Verified 05/17/17 12:12) RASH Review of Systems - Physician Review All systems were reviewed & negative as marked: Yes - Review of Systems Constitutional: Normal. absent: Fevers Eyes: Normal ENT: Normal Respiratory: Normal. absent: SOB Cardiovascular: Normal. absent: Chest Pain Gastrointestinal: Normal. absent: Abdominal Pain, Diarrhea, Nausea, Vomiting Genitourinary Male: Normal Musculoskeletal: Normal Skin: Normal Neurological: Normal Endocrine: Normal Hemo/Lymphatic: Normal Psychiatric: Suicidal Ideation <Yoan Coyle - Last Filed: 05/17/17 21:55> Physical Exam Temperature: Afebrile Pulse: Regular Respiratory Rate: Normal Appearance: Positive for: Unkept, Other (malodorous, smell of alcohol) Pain Distress: None Mental Status: Positive for: Alert and Oriented X 3 - Systems Exam Head: Present: Atraumatic, Normocephalic Pupils: Present: PERRL Extroacular Muscles: Present: EOMI Conjunctiva: Present: Normal Mouth: Present: Moist Mucous Membranes Pharnyx: No: ERYTHEMA, EXUDATE, TONSILS ENLARGED Neck: Present: Normal Range of Motion Respiratory/Chest: Present: Good Air Exchange, Decreased Breath Sounds. No: Respiratory Distress, Accessory Muscle Use Cardiovascular: Present: Regular Rate and Rhythm, Normal S1, S2. No: Murmurs Abdomen: Present: Normal Bowel Sounds. No: Tenderness, Distention, Peritoneal Signs Back: Present: Normal Inspection Upper Extremity: Present: Normal Inspection. No: Cyanosis, Edema Lower Extremity: Present: Normal Inspection. No: Edema Neurological: Present: GCS=15, CN II-XII Intact, Speech Normal Skin: Present: Warm, Dry, Normal Color. No: Rashes Psychiatric: Present: Alert, Oriented x 3, Suicidal Ideation <Yoan Coyle - Last Filed: 05/17/17 21:55> Vital Signs Temp Pulse Resp BP Pulse Ox 05/18/17 01:51 84 18 131/79 95 05/18/17 00:48 90 18 134/70 96 05/17/17 22:00 79 22 123/72 100 05/17/17 19:15 91 H 18 124/75 96 05/17/17 12:13 98.3 F 101 H 20 115/66 96 Medical Decision Making - RAD Interpretation Mechanical Engineering Draftsperson: Radiologist <Yoan Coyle - Last Filed: 05/17/17 21:55> <Blane Mcgregor - Last Filed: 05/18/17 02:26> ED Course and Treatment: 05/17/17 12:06 Impression: 56 year old male presents to the Emergency department for psychiatric evaluation. Plan: -- EKG -- Labs -- Chest X-ray -- Urinalysis -- Reassess and disposition Progress Notes: 05/17/17 12:49 Chest X-ray reviewed by radiologist, shows no active pulmonary disease. 05/17/17 14:13 EKG shows normal sinus rhythm rate approximately 95 with poor R waves in no acute ST or T-wave changes 05/17/17 21:55 Patient was initially seen by crisis this afternoon and determined that he was too intoxicated to evaluate properly. He is being evaluated again this evening. Patient will be turned over to the overnight emergency department physician, Dr Mcgregor, waiting for final disposition from crisis. It is anticipated that if the patient does not need hospitalization for psychiatric reasons that he will be able to be discharged home. (Yoan Coyle) 05/18/17 02:[address] Coyle. Na [address] Coyle feels this is baseline and patient can be discharged medically if he is not admitted to psychiatry. Patient is not being admitted to psychiatry. (Blane Mcgregor) - Lab Interpretations Lab Results: 05/17/17 12:50 05/17/17 12:50 Lab Results 05/17/17 16:30: Urine Opiates Screen Negative, Urine Methadone Screen Negative, Ur Barbiturates Screen Negative, Ur Phencyclidine Scrn Negative, Ur Amphetamines Screen Negative, U Benzodiazepines Scrn Positive, U Oth Cocaine Metabols Negative, U Cannabinoids Screen Negative 05/17/17 16:30: Urine Color Yellow, Urine Appearance Clear, Urine pH 6.0, Ur Specific [place] >= 1.030, Urine Protein Negative, Urine Glucose (UA) Negative, Urine Ketones Trace H, Urine Blood Negative, Urine Nitrate Negative, Urine Bilirubin Negative, Urine Urobilinogen 0.2, Ur Leukocyte Esterase Negative 05/17/17 12:50: Alcohol, Quantitative 294 H 05/17/17 12:50: Salicylates < 1 L, Acetaminophen < 10.0 L 05/17/17 12:50: Sodium 150 H, Potassium 3.6, Chloride 111 H, Carbon Dioxide 25, Anion Gap 18, BUN 15, Creatinine 0.9, Est GFR ( Amer) > 60, Est GFR (Non- Af Amer) > 60, Random Glucose 123 H, Calcium 9.0, Total Bilirubin 0.2, AST 46, ALT 26, Alkaline Phosphatase 116, Total Creatine Kinase 128, Total Protein 7.3, Albumin 3.9, Globulin 3.4, Albumin/Globulin Ratio 1.1 05/17/17 12:50: WBC 7.3, RBC 4.00, Hgb 8.6 L, Hct 29.4 L, MCV 73.5 L, MCH 21.5 L , MCHC 29.3 L, RDW 20.8 H, Plt Count 153, MPV 9.6, Gran % 62.2, Lymph % (Auto) 25.7, [place] % (Auto) 6.9 H, Eos % (Auto) 4.8, Baso % (Auto) 0.4, Gran # 4.54, Lymph # (Auto) 1.9, [place] # (Auto) 0.5, Eos # (Auto) 0.4, Baso # (Auto) 0.03 - RAD Interpretation Radiology Orders: 05/17/17 12:20 CHEST PORTABLE [RAD] Stat - Medication Orders Current Medication Orders: Discontinued Medications Chlordiazepoxide (Librium) 50 mg PO STAT STA PRN Reason: Protocol Stop: 05/17/17 19:38 Last Admin: 05/17/17 19:51 Dose: 50 mg - Scribe Statement The provider has reviewed the documentation as recorded by the Scribe <Yoan Coyle - Last Filed: 05/17/17 21:55> <Blane Mcgregor - Last Filed: 05/18/17 02:26> - Scribe Statement George Valencia. All medical record entries made by the Scribe were at my direction and personally dictated by me. I have reviewed the chart and agree that the record accurately reflects my personal performance of the history, physical exam, medical decision making, and the department course for this patient. I have also personally directed, reviewed, and agree with the discharge instructions and disposition. (Yoan Coyle) Disposition/Present on Arrival - Present on Arrival History of DVT/PE: No History of Uncontrolled Diabetes: Yes Urinary Catheter: No History Surgical Site Infection Following: None <Yoan Coyle - Last Filed: 05/17/17 21:55> - Present on Arrival Any Indicators Present on Arrival: No - Disposition Have Diagnosis and Disposition been Completed?: Yes Disposition Time: 03:00 <Blane Mcgregor - Last Filed: 05/18/17 02:26> - Disposition Diagnosis: Alcohol abuse, Hypernatremia Disposition: HOME/ ROUTINE Condition: IMPROVED Discharge Instructions (ExitCare): Alcohol Abuse and Alcoholism (DC) Referrals: Tommie Alexander MD [Primary Care Provider] - Follow up with primary
[2017-05-17 12:11] VITALS: BMI 32.3
[2017-05-17 12:13] VITALS: TEMP 98.3
--- NOTE | 2017-05-17 12:48 | RAD ---
HISTORY: PES COMPARISON: 05/11/2017. FINDINGS: LUNGS: The lungs are well inflated and clear. PLEURA: No significant pleural effusion identified, no pneumothorax apparent. CARDIOVASCULAR: Normal. OSSEOUS STRUCTURES: No significant abnormalities. VISUALIZED UPPER ABDOMEN: Normal. OTHER FINDINGS: None. IMPRESSION: No active pulmonary disease.
[2017-05-17 13:29] LABS: BASO # 0.03 K/mm3 (0.0-2.0); BASO % 0.4 % (0.0-3.0); EOS # 0.4 (0.0-0.7); EOS % 4.8 % (1.5-5.0); GRAN # 4.54 (1.4-6.5); GRAN % 62.2 % (50.0-68.0); HEMOGLOBIN 8.6 g/dL (14.0-18.0); LYMPH # 1.9 (1.2-3.4); LYMPH % 25.7 % (22.0-35.0); MEAN CELL VOLUME 73.5 fl (80.0-105.0); MEAN CORPUSCULAR HEMOGLOBIN 21.5 pg (25.0-35.0); MEAN CORPUSCULAR HGB CONC 29.3 g/dl (31.0-37.0); MEAN PLATELET VOLUME 9.6 fl (7.0-11.0); MONO # 0.5 (0.1-0.6); MONO % 6.9 % (1.0-6.0); RED CELL DISTRIBUTION WIDTH 20.8 % (11.5-14.5); WHITE BLOOD COUNT 7.3 10^3/ul (4.5-11.0)
[2017-05-17 14:05] LABS: ACETAMINOPHEN < 10.0 ug/ml (10.0-20.0); SALICYLATE < 1 mg/dL (2.0-20.0)
[2017-05-17 14:08] LABS: ALB/GLOB RATIO 1.1 (1.1-1.8); ALBUMIN 3.9 g/dL (3.0-4.8); ALT/SGPT 26 U/L (7-56); AST/SGOT 46 U/L (17-59); BLOOD UREA NITROGEN 15 mg/dL (7-21); GFR AFRICAN-AMERICAN > 60; GFR NON-AFRICAN AMERICAN > 60
[2017-05-17 16:45] LABS: URINE BILIRUBIN NEGATIVE (NEGATIVE); URINE BLOOD NEGATIVE (NEGATIVE); URINE GLUCOSE (UA) NEGATIVE (NEGATIVE); URINE LEUKOCYTE ESTERASE NEGATIVE Leu/uL (NEGATIVE); URINE NITRATE NEGATIVE (NEGATIVE); URINE PROTEIN NEGATIVE mg/dL (<30 mg/dL); URINE UROBILINOGEN 0.2 E.U./dL (<1 E.U./dL)
[2017-05-17 16:46] LABS: URINE APPEARANCE CLEAR (CLEAR); URINE COLOR YELLOW (YELLOW)
[2017-05-17 17:24] LABS: BARBITURATES, UR NEGATIVE (NEGATIVE); BENZODIAZEPINES, UR POSITIVE (NEGATIVE); OPIATES, UR NEGATIVE (NEGATIVE); PHENCYCLIDINE, UR NEGATIVE (NEGATIVE)
--- NOTE | 2017-05-17 19:00 | CARD ---
APPROVED REPORT EKG Measurement Heart [id number] <Conclusion> Normal sinus rhythm Low voltage QRS Cannot rule out Anterior infarct, age undetermined Abnormal ECG
[2017-05-18 00:48] VITALS: RESP 18
[2017-05-18 07:03] VITALS: BP 134/76; PULSE 87; O2SAT 96
== END 2017-05-18 07:05 | disposition home or self-care (01) ==
LOC: ED 11:51
DX: F10.10 Alcohol abuse, uncomplicated (principal); Y90.8 Blood alcohol level of 240 mg/100 ml or more; E87.0 Hyperosmolality and hypernatremia; E11.9 Type 2 diabetes mellitus without complications; D64.9 Anemia, unspecified

== ENCOUNTER 2017-05-19 21:12 | Emergency (ER) | payer MEDICAID ==
[2017-05-19 21:21] VITALS: BMI 30.7
[2017-05-19 21:25] VITALS: BP 99/58; TEMP 97.8; O2SAT 99
[2017-05-19 21:32] VITALS: PULSE 80; RESP 18
--- NOTE | 2017-05-19 21:59 | ED PDOC ---
Arrival/HPI - General Chief Complaint: Upper Extremity Problem/Injury Time Seen by Provider: 05/19/17 21:30 - History of Present Illness Narrative History of Present Illness (Text): 05/19/17 21:57 56 yo male, hx of etoh abuse, presens sp/ fall. pt states he triped on street, landed on hands, co of right hand, left elbow, left shoulder, left knee pain, left sided rib pain. did not strike head, denies any loc. Past Medical History - Past History Past History: No Previous - Infectious Disease Hx of Infectious Diseases: None - Tetanus Immunization Tetanus Immunization: Unknown - Cardiac Hx Cardiac Disorders: Yes Hx Hypertension: No - Pulmonary Hx Tuberculosis: No - Neurological HX Cerebrovascular Accident: No Hx Seizures: No - HEENT Hx HEENT Disorder: No - Renal Hx Renal Disorder: No - Endocrine/Metabolic Hx Diabetes Mellitus Type 2: Yes - Hematological/Oncological Hx Cancer: No - Integumentary Hx Dermatological Disorder: No - Musculoskeletal/Rheumatological Hx Musculoskeletal Disorders: Yes Hx Back Pain: Yes Hx Falls: No - Gastrointestinal Hx Gastrointestinal Disorders: Yes Hx Gastritis: Yes Hx Gastroesophageal Reflux: Yes Hx Gastrointestinal Ulcer: Yes Hx Pancreatitis: Yes - Genitourinary/Gynecological Hx Sexually Transmitted Diseases: No - Psychiatric Hx Psychophysiologic Disorder: Yes Hx Anxiety: Yes Hx Substance Use: No Other/Comment: alcohol abuse - Surgical History Other/Comment: orcchectomy, ventral and inguinal hernia repair - Anesthesia Hx Anesthesia: Yes Hx Anesthesia Reactions: No Hx Malignant Hyperthermia: No - Suicidal Assessment Feels Threatened In Home Enviroment: No Family/Social History - Physician Review Nursing Documentation Reviewed: Yes Family/Social History: Unknown Family HX Smoking Status: Light Smoker < 10 Cigarettes Daily Hx Alcohol Use: Yes Amount per day: 10 Hx Substance Use: No Hx Substance Use Treatment: No Allergies/Home Meds Allergies/Adverse Reactions: Allergies Penicillins Allergy (Mild, Verified 05/19/17 21:22) RASH Home Medications: Home Meds Medication Instructions Recorded Confirmed No Known Home Med 05/19/17 05/19/17 Review of Systems - Review of Systems Constitutional: Normal Eyes: Normal ENT: Normal Respiratory: Normal Cardiovascular: Normal Gastrointestinal: Normal Genitourinary Male: Normal Musculoskeletal: Normal, Other (left elbow, shoulder, right hand, left knee) Skin: Normal Neurological: Normal Endocrine: Normal Hemo/Lymphatic: Normal Psychiatric: Normal Physical Exam Vital Signs Temp Pulse Resp BP Pulse Ox 05/19/17 23:05 18 99 05/19/17 21:25 97.8 F 80 18 99/58 L 99 05/19/17 21:24 97.8 F 104 H 19 99/58 L 99 Temperature: Afebrile Blood Pressure: Normal Pulse: Regular Respiratory Rate: Normal Appearance: Positive for: Well-Appearing, Non-Toxic, Comfortable Pain Distress: None Mental Status: Positive for: Alert and Oriented X 3 - Systems Exam Head: Present: Atraumatic, Normocephalic Pupils: Present: PERRL Extroacular Muscles: Present: EOMI Conjunctiva: Present: Normal Mouth: Present: Moist Mucous Membranes Neck: Present: Normal Range of Motion Respiratory/Chest: Present: Clear to Auscultation, Good Air Exchange. No: Respiratory Distress, Accessory Muscle Use Cardiovascular: Present: Regular Rate and Rhythm, Normal S1, S2. No: Murmurs Abdomen: Present: Normal Bowel Sounds. No: Tenderness, Distention, Peritoneal Signs Back: Present: Normal Inspection Upper Extremity: Present: Other (minimal left elbow, left shoulder, right hand ttp, swelling). No: Cyanosis, Edema Lower Extremity: Present: Other (left knee minimal ttp, normal rom, miminal swelling). No: Edema Neurological: Present: GCS=15, CN II-XII Intact, Speech Normal Skin: Present: Warm, Dry, Normal Color. No: Rashes Psychiatric: Present: Alert, Oriented x 3, Normal Insight, Normal Concentration Medical Decision Making - RAD Interpretation Radiology Orders: 05/19/17 21:50 ELBOW LEFT 3 VIEWS ROUTINE [RAD] Stat HAND RIGHT 3 VIEWS [RAD] Stat KNEE LEFT 2 VIEWS (AP & LAT) [RAD] Stat RIBS LEFT & PA CHEST [RAD] Stat SHOULDER LEFT [RAD] Stat Disposition/Present on Arrival - Present on Arrival Any Indicators Present on Arrival: No History of DVT/PE: No History of Uncontrolled Diabetes: Yes Urinary Catheter: No History of Decub. Ulcer: No History Surgical Site Infection Following: None - Disposition Have Diagnosis and Disposition been Completed?: Yes Diagnosis: Fall Disposition: HOME/ ROUTINE Disposition Time: 11:00 Condition: STABLE Discharge Instructions (ExitCare): Shoulder Sprain, Knee Sprain (DC), Preventing Falls, Elbow Sprain (DC), Bruised Rib (DC) Additional Instructions: follow up with specialist return to er with worsening symptoms or concerns. Referrals: Darnell Rodríguez DO [Staff Provider] - Follow up with primary Tommie Alexander MD [Primary Care Provider] - Follow up with primary Forms: [employer] ([place])
--- NOTE | 2017-05-20 08:02 | RAD ---
PROCEDURE: Right Hand Radiographs. HISTORY: fall COMPARISON: None. FINDINGS: BONES: There is a small triangular calcified density medial to the distal cortex of the middle phalanx right index finger likely reflective of heterotopic calcification within soft tissue locally. A chip or avulsion fracture is not completely excluded here. Clinically correlate further. No additional potential fracture identified throughout the remainder of the right hand. No destructive bony lesion identified. JOINTS: No subluxation or dislocation identified throughout. SOFT TISSUES: As above. OTHER FINDINGS: None. IMPRESSION: Heterotopic calcification is favored over chip/avulsion fracture lateral to the distal segment right index finger middle phalanx. Clinically correlate further. Examination is otherwise unremarkable.
--- NOTE | 2017-05-20 08:04 | RAD ---
PROCEDURE: Radiographs of the left elbow. HISTORY: fall COMPARISON: No prior. FINDINGS: BONES: No acute fracture or destructive bony lesion identified. JOINTS: No subluxation or dislocation identified. SOFT TISSUES: Normal. JOINT EFFUSION: None. OTHER FINDINGS: None IMPRESSION: Unremarkable radiographs of the left elbow.
--- NOTE | 2017-05-20 08:05 | RAD ---
PROCEDURE: Radiographs of the Left Shoulder HISTORY: fall COMPARISON: No prior. FINDINGS: BONES: No acute fracture or destructive bony lesion identified. JOINTS: Limited degenerative changes are appreciated at the acromioclavicular joint manifest by limited cortical sclerosis. The glenohumeral joint appears unremarkable. SOFT TISSUES: Normal. OTHER FINDINGS: None. IMPRESSION: No acute fracture, subluxation or dislocation. Limited degenerative changes seen at the acromioclavicular joint.
--- NOTE | 2017-05-20 08:08 | RAD ---
PROCEDURE: Radiographs of the Chest and Left Ribs. HISTORY: fall COMPARISON: Left wrist with chest 03/08/2017, portable chest 05/21/2017.. TECHNIQUE: Frontal radiograph of the chest and multiple oblique radiographs of the left ribs were obtained. FINDINGS: LEFT RIBS: No fracture or destructive bony lesion visualized. LUNGS: No acute infiltrate bilaterally. PLEURA: No pneumothorax or pleural fluid. CARDIOVASCULAR: Normal sized heart. No pulmonary vascular congestion. OTHER FINDINGS: None. IMPRESSION: Unremarkable radiographs of the chest and left ribs. No left rib fracture.
--- NOTE | 2017-05-20 08:10 | RAD ---
PROCEDURE: Left Knee Radiographs. HISTORY: Pain. COMPARISON: None. FINDINGS: BONES: No acute fracture or destructive bony lesion identified. JOINTS: No subluxation/dislocation. Limited degenerative cortical sclerosis is appreciated at the patellofemoral articulation with trace osteophyte development. Lesser similar changes seen the medial and lateral femorotibial compartments compatible with osteoarthritis. JOINT EFFUSION: None. OTHER FINDINGS: None. IMPRESSION: No acute fracture, subluxation or dislocation. Degenerative changes appear mild as discussed above.
== END 2017-05-19 23:05 | disposition home or self-care (01) ==
LOC: ED 21:12
DX: S43.402A Unspecified sprain of left shoulder joint, initial encounter (principal); S53.402A Unspecified sprain of left elbow, initial encounter; S83.92XA Sprain of unspecified site of left knee, initial encounter; W01.0XXA Fall on same level from slipping, tripping and stumbling without subsequent striking against object, initial encounter; Y92.410 Unspecified street and highway as the place of occurrence of the external cause

== ENCOUNTER 2017-05-29 22:30 | Emergency (ER) | payer MEDICAID ==
[2017-05-29 23:04] VITALS: RESP 18; TEMP 97.5; BMI 29.7
[2017-05-29] MEDS ORDERED: Sodium Chloride 0.9% 1,000 ML IV SCH (23:30)
--- NOTE | 2017-05-29 23:30 | ED PDOC ---
Arrival/HPI <Heraclio Jordan - Last Filed: 05/30/17 00:33> - General Historian: Patient - History of Present Illness Time/Duration: Prior to Arrival, 24 hours Symptom Onset: Sudden Symptom Course: Unchanged Quality: Pressure Severity Level: 5 Activities at Onset: Rest Context: Sitting <Mick Carranzan - Last Filed: 05/30/17 02:50> - General Chief Complaint: Abdominal Pain - History of Present Illness Narrative History of Present Illness (Text): 05/29/17 23:27 56M w/ pmhx significant for erosive esophagisits, chronic pancreatitis, COPD, microcytic anemia presents to [facility] ED w/ Periumbilical abdominal pain that started earlier today. Pain is described as crampy. Had similar episode like this in the past when pt had pancreatitis. Admits to having 2-3 beers earlier today. Denies current: nausea, vomiting, chest pain, shortness of breath, tremors, changes in urinary or bowel habits. PMH: as above PSH: inguinal hernia repair and R. Orchiectomy ALL: PCN Socialhx: daily ETOH use, denies tobacco and recreational drug use (MerchantRodrigo) Past Medical History - Provider Review Nursing Documentation Reviewed: Yes - Travel History Have you recently traveled outside [place] w/in the past 3 mons?: No - Past History Past History: No Previous - Infectious Disease Hx of Infectious Diseases: None - Tetanus Immunization Tetanus Immunization: Unknown - Cardiac Hx Cardiac Disorders: Yes - Pulmonary Hx Respiratory Disorders: No - Neurological Hx Neurological Disorder: No - HEENT Hx HEENT Disorder: No - Renal Hx Renal Disorder: No - Endocrine/Metabolic Hx Endocrine Disorders: Yes Hx Diabetes Mellitus Type 2: Yes - Hematological/Oncological Hx Blood Disorders: No - Integumentary Hx Dermatological Disorder: No - Musculoskeletal/Rheumatological Hx Musculoskeletal Disorders: Yes Hx Back Pain: Yes - Gastrointestinal Hx Gastrointestinal Disorders: Yes Hx Gastritis: Yes Hx Gastroesophageal Reflux: Yes Hx Gastrointestinal Ulcer: Yes Hx Pancreatitis: Yes - Genitourinary/Gynecological Hx Genitourinary Disorders: No - Psychiatric Hx Psychophysiologic Disorder: Yes Hx Anxiety: Yes Hx Substance Use: No Other/Comment: alcohol abuse - Surgical History Other/Comment: orcchectomy, ventral and inguinal hernia repair - Anesthesia Hx Anesthesia: Yes Hx Anesthesia Reactions: No Hx Malignant Hyperthermia: No - Suicidal Assessment Feels Threatened In Home Enviroment: No <Rodrigo Carranza - Last Filed: 05/30/17 02:50> Family/Social History Family/Social History: Other (non-contributory) Smoking Status: Light Smoker < 10 Cigarettes Daily Hx Alcohol Use: Yes Amount per day: 10 Hx Substance Use: No Hx Substance Use Treatment: No <Rodrigo Carranza - Last Filed: 05/30/17 02:50> Allergies/Home Meds <Heraclio Jordan - Last Filed: 05/30/17 00:33> <Rodrigo Carranza - Last Filed: 05/30/17 02:50> Allergies/Adverse Reactions: Allergies Penicillins Allergy (Mild, Verified 05/29/17 22:54) RASH Home Medications: Home Meds Medication Instructions Recorded Confirmed No Known Home Med 05/19/17 05/29/17 Review of Systems - Review of Systems Constitutional: absent: Fatigue, Weight Change, Fevers, Night Sweats Eyes: absent: Vision Changes, Photophobia ENT: absent: Hearing Changes, Tinnitus Respiratory: absent: SOB, Cough, Sputum, Wheezing Cardiovascular: absent: Chest Pain, Palpitations Gastrointestinal: Abdominal Pain. absent: Stool Changes, Constipation, Vomiting Genitourinary Male: absent: Dysuria Musculoskeletal: absent: Arthralgias, Back Pain Neurological: absent: Headache, Dizziness, Focal Weakness <Rodrigo Carranza - Last Filed: 05/30/17 02:50> Physical Exam Temperature: Afebrile Blood Pressure: Normal Pulse: Regular Respiratory Rate: Normal Appearance: Positive for: Well-Appearing, Non-Toxic, Comfortable Pain Distress: None Mental Status: Positive for: Alert and Oriented X 3 - Systems Exam Head: Present: Atraumatic, Normocephalic Extroacular Muscles: Present: EOMI Conjunctiva: Present: Normal Mouth: No: Dry, Drooling Neck: Present: Normal Range of Motion Respiratory/Chest: Present: Clear to Auscultation, Good Air Exchange, Accessory Muscle Use. No: Respiratory Distress Cardiovascular: Present: Regular Rate and Rhythm, Normal S1, S2. No: Murmurs Abdomen: Present: Tenderness (nicol-umbilical), Distention, Normal Bowel Sounds. No: Peritoneal Signs Upper Extremity: Present: Normal Inspection, NORMAL PULSES Lower Extremity: Present: Normal Inspection. No: Edema, CALF TENDERNESS Neurological: Present: GCS=15. No: Speech Normal (speech is delayed ) Skin: Present: Warm, Dry Psychiatric: Present: Alert, Oriented x 3 <Rodrigo Carranza - Last Filed: 05/30/17 02:50> Vital Signs Temp Pulse Resp BP Pulse Ox 05/29/17 23:00 97.5 F L 86 18 102/67 98 Medical Decision Making <Heraclio Jordan - Last Filed: 05/30/17 00:33> Re-evaluation Time: 02:44 (ABD pain feeling better. CT scan reviewed. States he would like to go home. ) - RAD Interpretation Acquisition Lead: Radiologist <Rodrigo Carranza - Last Filed: 05/30/17 02:50> ED Course and Treatment: 05/30/17 00:33 Travis Royal, is a 56 year old male who presents to the emergency department this evening for a complaint of abdominal pain that the patient reports started earlier in the day. In agreement with resident note, which includes further HPI details. Patient was seen and evaluated with resident, came up with plan and treatment together. (Heraclio Jordan) 05/29/17 23:33 CBC/CMP/ETOH UA/UDS CT of abd w/ IV contrast IVF 2L Pain control CT Scan reviewed. No acute pathology. Moderate hiatal hernia. Thick walled distal esophagus with mild adjacent inflammatory stranding suggesting esophagitis. Differential diagnosis includes infectious/inflammatory and neoplastic etiologies. Discussed results w/ patient. (Rodrigo Carranza) - Lab Interpretations Lab Results: 05/29/17 23:15 05/29/17 23:15 Lab Results 05/30/17 00:10: Urine Color Yellow, Urine Appearance Clear, Urine pH 6.0, Ur Specific [place] 1.010, Urine Protein Negative, Urine Glucose (UA) Negative, Urine Ketones Negative, Urine Blood Negative, Urine Nitrate Negative, Urine Bilirubin Negative, Urine Urobilinogen 0.2, Ur Leukocyte Esterase Negative 05/29/17 23:15: Alcohol, Quantitative 211 H 05/29/17 23:15: Sodium 144, Potassium 4.0, Chloride 105, Carbon Dioxide 26, Anion Gap 17, BUN 14, Creatinine 0.8, Est GFR ( Amer) > 60, Est GFR (Non- Af Amer) > 60, Random Glucose 113 H, Calcium 8.7, Total Bilirubin 0.3, AST 68 H D, ALT 39, Alkaline Phosphatase 89, Total Protein 7.1, Albumin 3.9, Globulin 3.2 , Albumin/Globulin Ratio 1.2, Lipase 428 H 05/29/17 23:15: WBC 6.1, RBC 4.04, Hgb 8.6 L, Hct 28.7 L, MCV 71.0 L, MCH 21.3 L , MCHC 30.0 L, RDW 19.8 H, Plt Count 195, MPV 8.9, Gran % 45.2 L, Lymph % (Auto ) 47.2 H, [place] % (Auto) 6.4 H, Eos % (Auto) 0.7 L, Baso % (Auto) 0.5, Gran # 2.76, Lymph # (Auto) 2.9, [place] # (Auto) 0.4, Eos # (Auto) 0.0, Baso # (Auto) 0.03 - RAD Interpretation Narrative RAD Interpretations (Text): 05/30/17 02:47 CT of Abd and Pelvis: No acute pathology. Moderate hiatal hernia. Thick walled distal esophagus with mild adjacent inflammatory stranding suggesting esophagitis. Differential diagnosis includes infectious/inflammatory and neoplastic etiologies. (Rodrigo Carranza) Radiology Orders: 05/29/17 23:19 ABD & PELVIS IV CONTRAST ONLY [CT] Stat - Medication Orders Current Medication Orders: Discontinued Medications Famotidine (Pepcid) 20 mg IVP STAT STA Stop: 05/29/17 23:58 Last Admin: 05/30/17 00:32 Dose: 20 mg IVP Administration Document 05/30/17 00:32 RD (Rec: 05/30/17 00:38 RD [id number]) Charges for Administration # of IVP Administrations 1 Sodium Chloride (Sodium Chloride 0.9%) 1,000 mls @ 999 mls/hr IV .Q1H1M SOPHIA Stop: 05/30/17 00:30 Last Admin: 05/29/17 23:20 Dose: 999 mls/hr eMAR Start Stop Document 05/29/17 23:20 RD (Rec: 05/29/17 23:38 RD [id number]) Intravenous Solution Start Date 05/29/17 Start Time 23:20 End Date 05/30/17 End time 00:20 Total Infusion Time 60 Multivitamins/Vitamin C 10 ml/Thiamine HCl 100 mg/ Folic Acid 1 mg/ Dextrose 1, 011.2 mls @ 1,000 mls/hr IV .Q1H1M ONE Stop: 05/30/17 00:54 Last Admin: 05/30/17 00:37 Dose: 1,000 mls/hr eMAR Start Stop Document 05/30/17 00:37 RD (Rec: 05/30/17 00:37 RD [id number]) Intravenous Solution Start Date 05/30/17 Start Time 00:37 End Date 05/30/17 End time 01:37 Total Infusion Time 60 Ondansetron HCl (Zofran Inj) 4 mg IVP STAT STA Stop: 05/29/17 23:58 Last Admin: 05/30/17 00:30 Dose: 4 mg IVP Administration Document 05/30/17 00:30 RD (Rec: 05/30/17 00:37 RD [id number]) Charges for Administration # of IVP Administrations 1 - PA / TELEPHONE INFORMATION SUPERVISOR / Resident Statement / has reviewed & agrees with the documentation as recorded. / has examined the patient and agrees with the treatment plan. <Heraclio Jordan - Last Filed: 05/30/17 00:33> Disposition/Present on Arrival <Heraclio Jordan - Last Filed: 05/30/17 00:33> - Present on Arrival Any Indicators Present on Arrival: No History of DVT/PE: No History of Uncontrolled Diabetes: Yes Urinary Catheter: No History of Decub. Ulcer: No History Surgical Site Infection Following: None - Disposition Have Diagnosis and Disposition been Completed?: Yes Disposition Time: 02:47 Patient Plan: Discharge <Rodrigo Carranza - Last Filed: 05/30/17 02:50> - Disposition Diagnosis: Pancreatitis, chronic, EtOH dependence Disposition: HOME/ ROUTINE Patient Problems: Current Active Problems Problem Status Onset Alcohol dependence Acute Pancreatitis, chronic Acute Condition: GOOD Discharge Instructions (ExitCare): Alcohol Abuse and Alcoholism (DC) Additional Instructions: Thank you for letting us take care of you today. The emergency medical care you received today was directed at your acute symptoms. If you were prescribed any medication, please fill it and take as directed. It may take several days for your symptoms to resolve. Return to the Emergency Department if your symptoms worsen, do not improve, or if you have any other problems. Discussed results of the CT scan- Moderate hiatal hernia. Thick walled distal esophagus with mild adjacent inflammatory stranding suggesting esophagitis. Differential diagnosis includes infectious/inflammatory and neoplastic etiologies. Please contact your doctor or call one of the physicians/clinics you have been referred to that are listed on the Patient Visit Information form that is included in your discharge packet. Bring any paperwork you were given at discharge with you along with any medications you are taking to your follow up visit. Our treatment cannot replace ongoing medical care by a primary care provider (PCP) outside of the emergency department. Thank you for allowing the [facility] team to be part of your care today. If you had an X-Ray or CT scan: Forms: [employer] (Romansh)
[2017-05-29] MEDS ORDERED: Multivitamin (MVI) 10 ML, Thiamine 100 MG, Folic Acid 1 MG in Dextrose 5% In Water 1,00... IV ONE (23:54)
[2017-05-29 23:55] LABS: BASO # 0.03 K/mm3 (0.0-2.0); BASO % 0.5 % (0.0-3.0); EOS % 0.7 % (1.5-5.0); GRAN # 2.76 (1.4-6.5); GRAN % 45.2 % (50.0-68.0); HEMOGLOBIN 8.6 g/dL (14.0-18.0); LYMPH # 2.9 (1.2-3.4); LYMPH % 47.2 % (22.0-35.0); MEAN CORPUSCULAR HEMOGLOBIN 21.3 pg (25.0-35.0); MEAN PLATELET VOLUME 8.9 fl (7.0-11.0); MONO # 0.4 (0.1-0.6); MONO % 6.4 % (1.0-6.0); RBC 4.04 10^6/uL (3.5-6.1); RED CELL DISTRIBUTION WIDTH 19.8 % (11.5-14.5); WHITE BLOOD COUNT 6.1 10^3/ul (4.5-11.0)
[2017-05-30 00:31] LABS: URINE BILIRUBIN NEGATIVE (NEGATIVE); URINE BLOOD NEGATIVE (NEGATIVE); URINE GLUCOSE (UA) NEGATIVE (NEGATIVE); URINE LEUKOCYTE ESTERASE NEGATIVE Leu/uL (NEGATIVE); URINE PROTEIN NEGATIVE mg/dL (<30 mg/dL); URINE UROBILINOGEN 0.2 E.U./dL (<1 E.U./dL)
[2017-05-30 00:36] LABS: ALB/GLOB RATIO 1.2 (1.1-1.8); ALBUMIN 3.9 g/dL (3.0-4.8); ALT/SGPT 39 U/L (7-56); AST/SGOT 68 U/L (17-59); BLOOD UREA NITROGEN 14 mg/dL (7-21); CALCIUM 8.7 mg/dL (8.4-10.5); GFR AFRICAN-AMERICAN > 60; GFR NON-AFRICAN AMERICAN > 60; LIPASE 428 U/L (23-300)
[2017-05-30 00:39] LABS: URINE APPEARANCE CLEAR (CLEAR); URINE COLOR YELLOW (YELLOW)
[2017-05-30] MEDS ORDERED: Iohexol 350 MG/100 ML VIAL ONE (00:48)
--- NOTE | 2017-05-30 01:41 | CT ---
EXAM: CT Abdomen and Pelvis With Intravenous Contrast CLINICAL HISTORY: 56 years old, male; Pain; Abdominal pain; Prior surgery; Additional info: Abd pain w/ iv contrast TECHNIQUE: Axial computed tomography images of the abdomen and pelvis with intravenous contrast. All CT scans at this facility use one or more dose reduction techniques, viz.: automated exposure control; ma/kV adjustment per patient size (including targeted exams where dose is matched to indication; i.e. head); or iterative reconstruction technique. Coronal and sagittal reformatted images were created and reviewed. CONTRAST: 96 mL of OMNI 350 administered intravenously. COMPARISON: CT - ABD PELVIS IV CONTRAST ONLY 2017-01-15 22:30 FINDINGS: Lower thorax: A moderate hiatal hernia is present. There is moderate circumferential wall thickening of the distal esophagus with mild adjacent inflammatory stranding. ABDOMEN: Liver: Unremarkable. No mass. Gallbladder and bile ducts: Partially contracted gallbladder with multiple calcified gallstones. No ductal dilation. Pancreas: Unremarkable. No mass. No ductal dilation. Spleen: There is mild nonspecific splenomegaly measuring 13.3 cm. Adrenals: Unremarkable. No mass. Kidneys and ureters: Unremarkable. No solid mass. No hydronephrosis. Stomach and bowel: Unremarkable. No obstruction. No mucosal thickening. Appendix: No findings to suggest acute appendicitis. Normal appendix. PELVIS: Bladder: Unremarkable. No mass. Reproductive: Unremarkable as visualized. ABDOMEN and PELVIS: Intraperitoneal space: Unremarkable. No free air. No significant fluid collection. Bones/joints: No acute fracture. No dislocation. Degenerative changes in the thoracic and lumbar spine. Soft tissues: Unremarkable. Vasculature: The aorta demonstrates mild atherosclerotic calcification. No abdominal aortic aneurysm. Lymph nodes: Unremarkable. No enlarged lymph nodes. IMPRESSION: Moderate hiatal hernia. Thick walled distal esophagus with mild adjacent inflammatory stranding suggesting esophagitis. Differential diagnosis includes infectious/inflammatory and neoplastic etiologies. Clinical correlation and followup recommended. Cholelithiasis. Mild nonspecific splenomegaly.
[2017-05-30 03:05] VITALS: BP 122/70; PULSE 85; O2SAT 100
[2017-05-30] MEDS ORDERED: Multivitamin Vitamin B Complex (Nephro-Vite) Tab PO ONE (23:21)
== END 2017-05-30 03:05 | disposition home or self-care (01) ==
LOC: ED 22:30
DX: K86.1 Other chronic pancreatitis (principal); F10.20 Alcohol dependence, uncomplicated; Y90.7 Blood alcohol level of 200-239 mg/100 ml; D64.9 Anemia, unspecified; E11.9 Type 2 diabetes mellitus without complications
CPT/HCPCS: 74177; 80053; 80320; 81003; 83690; 85025; 96361; 96365; 96375; 99284; J2405; J3411; J7040; J7070; Q9967

== ENCOUNTER 2017-06-03 20:50 | Emergency (ER) | payer MEDICAID ==
[2017-06-03 20:51] VITALS: BMI 30.7
[2017-06-03 21:07] VITALS: RESP 18; TEMP 97.7
[2017-06-03 22:20] LABS: BASO # 0.03 K/mm3 (0.0-2.0); BASO % 0.5 % (0.0-3.0); EOS # 0.1 (0.0-0.7); EOS % 1.4 % (1.5-5.0); GRAN # 3.74 (1.4-6.5); GRAN % 56.6 % (50.0-68.0); HEMOGLOBIN 8.6 g/dL (14.0-18.0); LYMPH # 2.4 (1.2-3.4); LYMPH % 36.2 % (22.0-35.0); MEAN CELL VOLUME 71.6 fl (80.0-105.0); MEAN CORPUSCULAR HEMOGLOBIN 21.4 pg (25.0-35.0); MEAN CORPUSCULAR HGB CONC 29.9 g/dl (31.0-37.0); MEAN PLATELET VOLUME 8.7 fl (7.0-11.0); MONO # 0.4 (0.1-0.6); MONO % 5.3 % (1.0-6.0); RBC 4.02 10^6/uL (3.5-6.1); RED CELL DISTRIBUTION WIDTH 20.1 % (11.5-14.5); WHITE BLOOD COUNT 6.6 10^3/ul (4.5-11.0)
[2017-06-03 22:39] LABS: TROPONIN I 0.01 ng/mL
[2017-06-03 22:40] LABS: ALB/GLOB RATIO 1.2 (1.1-1.8); ALBUMIN 4.2 g/dL (3.0-4.8); ALT/SGPT 30 U/L (7-56); AST/SGOT 41 U/L (17-59); BLOOD UREA NITROGEN 12 mg/dL (7-21); GFR AFRICAN-AMERICAN > 60; GFR NON-AFRICAN AMERICAN > 60; LIPASE 499 U/L (23-300)
--- NOTE | 2017-06-03 23:15 | ED PDOC ---
Arrival/HPI - General Chief Complaint: Chest Pain Time Seen by Provider: 06/03/17 21:11 Historian: Patient - History of Present Illness Narrative History of Present Illness (Text): 06/03/17 23:02 56yr old homeless male presents today stating that he had chest pain radiating into the left arm earlier today. unable to say at what time. pt denies nausea/ vomiting. denies abdominal pain. denies fever/chills. denies back pain. denies dizziness or weakness. pt states he doesnt have a place to sleep tonight. Past Medical History - Provider Review Nursing Documentation Reviewed: Yes - Travel History Have you recently traveled outside [place] w/in the past 3 mons?: No - Past History Past History: No Previous - Infectious Disease Hx of Infectious Diseases: None - Tetanus Immunization Tetanus Immunization: Unknown - Cardiac Hx Cardiac Disorders: Yes - Pulmonary Hx Respiratory Disorders: Yes - Neurological Hx Neurological Disorder: No - HEENT Hx HEENT Disorder: No - Renal Hx Renal Disorder: No - Endocrine/Metabolic Hx Endocrine Disorders: No - Hematological/Oncological Hx Blood Disorders: Yes - Integumentary Hx Dermatological Disorder: No - Musculoskeletal/Rheumatological Hx Musculoskeletal Disorders: Yes Hx Back Pain: Yes - Gastrointestinal Hx Gastrointestinal Disorders: Yes Hx Gastritis: Yes Hx Gastroesophageal Reflux: Yes Hx Gastrointestinal Ulcer: Yes Hx Pancreatitis: Yes - Genitourinary/Gynecological Hx Genitourinary Disorders: No - Psychiatric Hx Psychophysiologic Disorder: Yes Hx Anxiety: Yes Hx Substance Use: No Other/Comment: alcohol abuse - Surgical History Other/Comment: orcchectomy, ventral and inguinal hernia repair - Anesthesia Hx Anesthesia: Yes Hx Anesthesia Reactions: No Hx Malignant Hyperthermia: No - Suicidal Assessment Feels Threatened In Home Enviroment: No Family/Social History - Physician Review Nursing Documentation Reviewed: Yes Family/Social History: Unknown Family HX Smoking Status: Light Smoker < 10 Cigarettes Daily Hx Alcohol Use: Yes Amount per day: 10 Hx Substance Use: No Hx Substance Use Treatment: No Allergies/Home Meds Allergies/Adverse Reactions: Allergies Penicillins Allergy (Mild, Verified 06/03/17 21:02) RASH Home Medications: Home Meds Medication Instructions Recorded Confirmed No Known Home Med 05/19/17 06/03/17 Review of Systems - Review of Systems Constitutional: absent: Fatigue, Fevers Respiratory: absent: SOB, Cough Cardiovascular: Chest Pain. absent: Palpitations Gastrointestinal: absent: Abdominal Pain, Nausea, Vomiting Genitourinary Male: absent: Dysuria Musculoskeletal: absent: Arthralgias, Back Pain, Neck Pain Skin: absent: Rash, Pruritis Neurological: absent: Headache, Dizziness Psychiatric: absent: Anxiety, Depression, Suicidal Ideation Physical Exam Vital Signs Reviewed: Yes Vital Signs Temp Pulse Resp BP Pulse Ox 06/04/17 00:28 97.7 F 78 18 123/80 98 06/03/17 21:04 97.7 F 71 18 120/75 96 Temperature: Afebrile Blood Pressure: Normal Pulse: Regular Respiratory Rate: Normal Appearance: Positive for: Well-Appearing, Non-Toxic, Comfortable Pain Distress: None Mental Status: Positive for: Alert and Oriented X 3 - Systems Exam Head: Present: Atraumatic Mouth: Present: Moist Mucous Membranes Respiratory/Chest: Present: Clear to Auscultation, Good Air Exchange. No: Respiratory Distress, Accessory Muscle Use Cardiovascular: Present: Regular Rate and Rhythm, Normal S1, S2. No: Murmurs Abdomen: No: Tenderness, Rebound, Guarding Back: Present: Normal Inspection Upper Extremity: Present: Normal ROM Lower Extremity: Present: Normal ROM Neurological: Present: GCS=15, Speech Normal Skin: Present: Warm, Dry, Normal Color. No: Rashes Psychiatric: Present: Alert, Oriented x 3 Medical Decision Making ED Course and Treatment: 06/03/17 23:04 56yr old homeless male with hx of etoh abuse, pancreatitis c/o an episode of CP radiating into the left arm earlier today. ekg; normal sinus rhythm at [address] elevations normal axis normal intervals CBC hemoglobin 8.6. this number has remained unchanged in the past 3 visits. CMP within normal limits Lipase 499 trop; wnl Chest x-ray no infiltrate or effusion Patient reassessment: Patient is nontoxic well-appearing in no distress his stable vital signs ambulating around the emergency room eating a sandwich. Repeat troponin;0.01 Patient reassessment: Patient denies any complaints resting comfortably in the emergency room. 06/04/17 03:32 pt is non toxic well appearing; no distress. i discussed all results in depth with patient; advised f/u with PMD regarding anemia. pt was advised to return if symptoms worsen,persist or if new symptoms develop. Patient verbalizes understanding of discharge instructions and need for immediate followup. all aspects of this case were discussed the attending of record. impression; anemia follow up with the primary care physician within the next 2 days return if symptoms worsen,persist or if new symptoms develop. - Lab Interpretations Lab Results: 06/03/17 21:56 06/03/17 21:56 Lab Results 06/04/17 00:22: Troponin I 0.01 06/03/17 21:56: WBC 6.6, RBC 4.02, Hgb 8.6 L, Hct 28.8 L, MCV 71.6 L, MCH 21.4 L , MCHC 29.9 L, RDW 20.1 H, Plt Count 176, MPV 8.7, Gran % 56.6, Lymph % (Auto) 36.2 H, [place] % (Auto) 5.3, Eos % (Auto) 1.4 L, Baso % (Auto) 0.5, Gran # 3.74, Lymph # (Auto) 2.4, [place] # (Auto) 0.4, Eos # (Auto) 0.1, Baso # (Auto) 0.03 06/03/17 21:56: Sodium 144, Potassium 3.7, Chloride 105, Carbon Dioxide 26, Anion Gap 17, BUN 12, Creatinine 0.7 L, Est GFR ( Amer) > 60, Est GFR ( Non-Af Amer) > 60, Random Glucose 90, Calcium 9.0, Total Bilirubin 0.4, AST 41, ALT 30, Alkaline Phosphatase 84, Lactate Dehydrogenase 487, Total Creatine Kinase 113, Troponin I 0.01, Total Protein 7.6, Albumin 4.2, Globulin 3.5, Albumin/Globulin Ratio 1.2, Lipase 499 H - RAD Interpretation Radiology Orders: 06/03/17 21:13 CHEST PORTABLE [RAD] Stat - Medication Orders Current Medication Orders: Discontinued Medications Pantoprazole Sodium (Protonix Inj) 40 mg IVP STAT STA Stop: 06/03/17 21:15 Last Admin: 06/03/17 22:38 Dose: 40 mg IVP Administration Document 06/03/17 22:38 HI (Rec: 06/03/17 22:38 [id number] Charges for Administration # of IVP Administrations 1 Disposition/Present on Arrival - Present on Arrival Any Indicators Present on Arrival: No History of DVT/PE: No History of Uncontrolled Diabetes: No Urinary Catheter: No History of Decub. Ulcer: No History Surgical Site Infection Following: None - Disposition Have Diagnosis and Disposition been Completed?: Yes Diagnosis: Anemia Disposition: HOME/ ROUTINE Disposition Time: 03:34 Patient Plan: Discharge Patient Problems: Current Active Problems Problem Status Onset Anemia Acute Condition: GOOD Additional Instructions: follow up with the primary care physician within the next 2 days return if symptoms worsen,persist or if new symptoms develop. [facility] - Follow up with primary [facility] [Outside] - Follow up with primary Jozef Boggs MD [Staff Provider] - Follow up with primary Forms: [employer] (Bulgarian)
[2017-06-04 04:04] VITALS: BP 124/82; PULSE 77; O2SAT 96
--- NOTE | 2017-06-04 08:39 | RAD ---
HISTORY: chest pain COMPARISON: 05/19/2017 FINDINGS: LUNGS: No active pulmonary disease. PLEURA: No significant pleural effusion identified, no pneumothorax apparent. CARDIOVASCULAR: Normal. OSSEOUS STRUCTURES: No significant abnormalities. VISUALIZED UPPER ABDOMEN: Normal. OTHER FINDINGS: None. IMPRESSION: No active disease.
--- NOTE | 2017-06-04 16:17 | CARD ---
APPROVED REPORT EKG Measurement Heart [id number] <Conclusion> Normal sinus rhythm Normal ECG
== END 2017-06-04 04:04 | disposition home or self-care (01) ==
LOC: ED 20:50
DX: D64.9 Anemia, unspecified (principal); K21.9 Gastro-esophageal reflux disease without esophagitis
CPT/HCPCS: 71045; 80053; 82550; 83615; 83690; 84484; 85025; 93005; 96374; 99283; C9113

== ENCOUNTER 2017-06-04 11:41 | Observation (INO) | payer MEDICAID ==
[2017-06-04 11:41] VITALS: BMI 30.7
[2017-06-04] MEDS ORDERED: Albuterol 0.083% Inhal Sol (2.5 mg/3 mL) UD INH ONE (12:24)
--- NOTE | 2017-06-04 12:24 | ED PDOC ---
Arrival/HPI - General Chief Complaint: GI Problem Time Seen by Provider: 06/04/17 12:00 Historian: Patient - History of Present Illness Narrative History of Present Illness (Text): 06/04/17 12:23 A 56 year old male, whose past medical history includes alcohol abuse, diabetes , anemia, pancreatitis, COPD and erosive esophagisits, presents to the emergency department complaining of alcohol withdrawal since this morning. Patient reports abdominal pain, nausea and non-bilious non-bloody vomiting. Patient admits drinking alcohol daily. He reports his last drink was 18:00 last night. Patient notes mild shortness of breath but denies any fever, chills, diarrhea, chest pain or any other complaints. Past Medical History - Provider Review Nursing Documentation Reviewed: Yes - Past History Past History: No Previous - Infectious Disease Hx of Infectious Diseases: None - Tetanus Immunization Tetanus Immunization: Unknown - Cardiac Hx Cardiac Disorders: Yes - Pulmonary Hx Respiratory Disorders: Yes - Neurological Hx Neurological Disorder: No - HEENT Hx HEENT Disorder: No - Renal Hx Renal Disorder: No - Endocrine/Metabolic Hx Endocrine Disorders: No - Hematological/Oncological Hx Blood Disorders: Yes - Integumentary Hx Dermatological Disorder: No - Musculoskeletal/Rheumatological Hx Musculoskeletal Disorders: Yes Hx Back Pain: Yes - Gastrointestinal Hx Gastrointestinal Disorders: Yes Hx Gastritis: Yes Hx Gastroesophageal Reflux: Yes Hx Gastrointestinal Ulcer: Yes Hx Pancreatitis: Yes - Genitourinary/Gynecological Hx Genitourinary Disorders: No - Psychiatric Hx Psychophysiologic Disorder: Yes Hx Anxiety: Yes Hx Substance Use: No Other/Comment: alcohol abuse - Surgical History Other/Comment: orcchectomy, ventral and inguinal hernia repair - Anesthesia Hx Anesthesia: Yes Hx Anesthesia Reactions: No Hx Malignant Hyperthermia: No - Suicidal Assessment Feels Threatened In Home Enviroment: No Family/Social History - Physician Review Nursing Documentation Reviewed: Yes Family/Social History: No Known Family HX Smoking Status: Light Smoker < 10 Cigarettes Daily Hx Alcohol Use: Yes Frequency of alcohol use: Daily Amount per day: 10 Hx Substance Use: No Hx Substance Use Treatment: No Allergies/Home Meds Allergies/Adverse Reactions: Allergies Penicillins Allergy (Mild, Verified 06/03/17 21:02) RASH Review of Systems - Physician Review All systems were reviewed & negative as marked: Yes - Review of Systems Constitutional: absent: Fevers, Night Sweats Respiratory: SOB Cardiovascular: absent: Chest Pain Gastrointestinal: Abdominal Pain, Nausea, Vomiting. absent: Diarrhea Physical Exam Vital Signs Reviewed: Yes Vital Signs Temp Pulse Resp BP Pulse Ox 06/04/17 21:08 79 18 142/99 H 97 06/04/17 18:30 75 17 143/91 H 100 06/04/17 16:15 97.6 F 80 16 132/86 98 06/04/17 13:18 80 16 139/72 100 06/04/17 11:54 98.7 F 97 H 18 139/85 97 Temperature: Afebrile Blood Pressure: Normal Pulse: Tachycardic Respiratory Rate: Normal Appearance: Positive for: Well-Appearing, Non-Toxic, Comfortable Pain Distress: None Mental Status: Positive for: Alert and Oriented X 3 - Systems Exam Head: Present: Atraumatic, Normocephalic Pupils: Present: PERRL Extroacular Muscles: Present: EOMI Conjunctiva: Present: Normal Mouth: Present: Moist Mucous Membranes Respiratory/Chest: Present: Clear to Auscultation, Good Air Exchange. No: Respiratory Distress, Accessory Muscle Use Cardiovascular: Present: Regular Rate and Rhythm, Normal S1, S2. No: Murmurs Abdomen: Present: Tenderness (diffuse abdominal tenderness to palpation), Normal Bowel Sounds. No: Distention, Peritoneal Signs, Rebound, Guarding Upper Extremity: Present: Normal Inspection. No: Cyanosis, Edema Lower Extremity: Present: Normal Inspection. No: Edema Neurological: Present: GCS=15, CN II-XII Intact, Speech Normal Skin: Present: Warm, Dry, Normal Color. No: Rashes Psychiatric: Present: Alert, Oriented x 3, Normal Insight, Normal Concentration Medical Decision Making ED Course and Treatment: 06/04/17 12:23 Impression: A 56 year old male with alcohol withdrawal. Patient reports abdominal pain, nausea, vomiting, and mild shortness of breath. Plan: -- Abdomen and pelvis CT -- Labs -- Albuterol, Zofran and IV fluids -- Reassess and disposition Progress Notes: Report Date : 06/04/2017 15:02:06 PROCEDURE: CT Abdomen and Pelvis without intravenous contrast Dictator : Abhay Newman MD IMPRESSION: No acute interval changes compared to the prior study 05/30/2017. Considerable thickening of the visualized distal esophagus suggestive of esophagitis. Follow-up advised. Cholelithiasis without CT evidence of acute cholecystitis. Additional benign and/or incidental findings described above. 06/04/17 15:40 Labs reviewed, normal lipase. 06/04/17 16:15 On re-evaluation, patient is resting comfortable. States his symptoms have improved. Will repeat CBC. 06/04/17 18:05 Patient vomiting in the emergency room. Case discussed with resident. Plan is to admit under hospitalists service to [facility] [place] for intractable vomiting and leukocytosis. Dr. Juliet lewis, awaiting call back. - Lab Interpretations Lab Results: 06/04/17 16:30 06/04/17 13:00 Lab Results 06/04/17 16:30: Alcohol, Quantitative < 10 06/04/17 16:30: WBC 12.9 H, RBC 4.07, Hgb 8.6 L, Hct 28.9 L, MCV 71.0 L, MCH 21.1 L, MCHC 29.8 L, RDW 19.8 H, Plt Count 170, MPV 8.9, Gran % 85.6 H, Lymph % (Auto) 9.0 L, Ector % (Auto) 5.1, Eos % (Auto) 0.1 L, Baso % (Auto) 0.2, Gran # 11.06 H, Lymph # (Auto) 1.2, Ector # (Auto) 0.7 H, Eos # (Auto) 0.0, Baso # (Auto ) 0.03, Neutrophils % (Manual) 88 H, Band Neutrophils % 1, Lymphocytes % (Manual ) 5 L, Monocytes % (Manual) 6 06/04/17 13:00: Sodium 138, Potassium 4.1, Chloride 101, Carbon Dioxide 27, Anion Gap 14, BUN 13, Creatinine 0.7 L, Est GFR ( Amer) > 60, Est GFR ( Non-Af Amer) > 60, Random Glucose 112 H, Calcium 9.3, Total Bilirubin 0.8, AST 36, ALT 32, Alkaline Phosphatase 92, Total Protein 7.8, Albumin 4.2, Globulin 3.6, Albumin/Globulin Ratio 1.2, Lipase 287 06/04/17 13:00: WBC 15.1 H D, RBC 4.12, Hgb 8.8 L, Hct 28.6 L, MCV 69.4 L, MCH 21.4 L, MCHC 30.8 L, RDW 21.0 H, Plt Count 174, MPV 8.8, Gran % 88.7 H, Lymph % (Auto) 5.3 L, Ector % (Auto) 5.6, Eos % (Auto) 0.2 L, Baso % (Auto) 0.2, Gran # 13.37 H, Lymph # (Auto) 0.8 L, Ector # (Auto) 0.1, Eos # (Auto) 0.0, Baso # (Auto ) 0.03 I have reviewed the lab results: Yes - RAD Interpretation Radiology Orders: 06/04/17 12:23 ABD & PELVIS W/O PO OR IV CONT [CT] Stat - Medication Orders Current Medication Orders: Discontinued Medications Albuterol Sulfate (Albuterol 0.083% Inhal Isa (2.5 Mg/3 Ml) Ud) 2.5 mg INH ONCE ONE Stop: 06/04/17 12:25 Last Admin: 06/04/17 12:38 Dose: 2.5 mg Chlordiazepoxide (Librium) 25 mg PO STAT STA PRN Reason: Protocol Stop: 06/04/17 19:28 Last Admin: 06/04/17 19:38 Dose: 25 mg Re-Assess: Reassess Psych Meds Document 06/04/17 23:21 AP (Rec: 06/04/17 23:21 AP [id number]) Reassess Psych Med Effective Chlordiazepoxide (Librium) 25 mg PO Q8 SOPHIA PRN Reason: Protocol Last Admin: 06/06/17 05:37 Dose: 25 mg Behavioural Document 06/06/17 05:37 MV (Rec: 06/06/17 05:37 MV [facility]) Maintenance Maintenance Dose Yes Re-Assess: Reassess Psych Meds Document 06/06/17 06:37 MV (Rec: 06/06/17 06:41 MV [facility]) Reassess Psych Med Effective Chlordiazepoxide (Librium) 25 mg PO Q12 SOPHIA PRN Reason: Protocol Ferrous Sulfate (Feosol) 324 mg PO TID [facility] Last Admin: 06/06/17 13:27 Dose: 324 mg Folic Acid (Folic Acid) 1 mg PO DAILY [facility] Last Admin: 06/06/17 13:27 Dose: 1 mg Sodium Chloride (Sodium Chloride 0.9%) 1,000 mls @ 150 mls/hr IV .Q6H40M [facility] Last Admin: 06/05/17 09:03 Dose: 150 mls/hr eMAR Start Stop Document 06/05/17 09:03 YD (Rec: 06/05/17 09:03 YD [id number]) Intravenous Solution Start Date 06/05/17 Start Time 09:03 Sodium Chloride (Sodium Chloride 0.9%) 1,000 mls @ 999 mls/hr IV .Q1H1M STA Stop: 06/04/17 19:06 Last Admin: 06/04/17 18:12 Dose: 999 mls/hr eMAR Start Stop Document 06/04/17 18:12 ELINOR (Rec: 06/04/17 18:12 ELINOR [id number]) Intravenous Solution Start Date 06/04/17 Start Time 18:12 End Date 06/04/17 End time 19:12 Total Infusion Time 60 Multivitamins/Vitamin C 10 ml/Thiamine HCl 100 mg/ Folic Acid 1 mg/ Sodium Chloride 1,011.2 mls @ 100 mls/hr IV .Q10H7M ONE Stop: 06/05/17 05:35 Last Admin: 06/04/17 20:00 Dose: 100 mls/hr eMAR Start Stop Document 06/04/17 20:00 ELINOR (Rec: 06/04/17 20:08 ELINOR [id number]) Intravenous Solution Start Date 06/04/17 Start Time 20:00 Ibuprofen (Motrin Tab) 400 mg PO STAT STA Stop: 06/06/17 01:29 Last Admin: 06/06/17 01:56 Dose: 400 mg MAR Pain/Vitals Document 06/06/17 01:56 SG (Rec: 06/06/17 01:56 SG [id number]) Pain Reassessment Is This A Pain ReAssessment? No Sleep Is patient sleeping during reassessment? No Presence of Pain Presence of Pain Yes Location Left, Right or Bilateral Left Pain Location Body Site Arm Re-Assess: MAR Pain/Vitals Document 06/06/17 02:56 MV (Rec: 06/06/17 04:02 MV [id number]) Pain Reassessment Is This A Pain ReAssessment? Yes Sleep Is patient sleeping during reassessment? Yes Insulin Human Regular (Humulin R Low) 0 units SC ACHS SOPHIA PRN Reason: Protocol Last Admin: 06/06/17 12:11 Dose: Not Given Non-Admin Reason: Blood Sugar Parameter Lorazepam (Ativan) 2 mg IVP Q2H PRN; Protocol PRN Reason: Agitation Last Admin: 06/06/17 02:01 Dose: 2 mg IVP Administration Document 06/06/17 02:01 SG (Rec: 06/06/17 02:02 SG [id number]) Charges for Administration # of IVP Administrations 1 Behavioural Document 06/06/17 02:01 SG (Rec: 06/06/17 02:02 SG [id number]) Maintenance Maintenance Dose No Nonmedicinal Nonmedicinal Interventions Redirect Therapeutic Communication Give food/fluids Behavior Behavior for Medication: Anxiety Re-Assess: Reassess Psych Meds Document 06/06/17 02:31 SG (Rec: 06/06/17 02:34 SG [id number]) Reassess Psych Med Effective Multivitamins (Thera Tab) 1 tab PO 0800 SOPHIA Ondansetron HCl (Zofran Inj) 4 mg IV ONCE ONE Stop: 06/04/17 12:25 Last Admin: 06/04/17 12:38 Dose: 4 mg eMAR Start Stop Document 06/04/17 12:38 ELINOR (Rec: 06/04/17 12:38 ELINOR [id number]) Intravenous Solution Start Date 06/04/17 Start Time 12:38 End Date 06/04/17 End time 12:40 Total Infusion Time 2 Ondansetron HCl (Zofran Inj) 4 mg IV ONCE ONE Stop: 06/04/17 18:06 Last Admin: 06/04/17 18:14 Dose: 4 mg eMAR Start Stop Document 06/04/17 18:14 ELINOR (Rec: 06/04/17 18:14 ELINOR [id number]) Intravenous Solution Start Date 06/04/17 Start Time 18:14 End Date 06/04/17 End time 18:16 Total Infusion Time 2 Ondansetron HCl (Zofran Inj) 4 mg IVP Q6H PRN PRN Reason: Nausea/Vomiting Last Admin: 06/05/17 12:55 Dose: 4 mg IVP Administration Document 06/05/17 12:55 YD (Rec: 06/05/17 12:55 YD [id number]) Charges for Administration # of IVP Administrations 1 Pantoprazole Sodium (Protonix Ec Tab) 40 mg PO 0630 [facility] Last Admin: 06/06/17 05:37 Dose: 40 mg Potassium Chloride (Potassium Chloride Oral Soln) 40 meq PO ONCE ONE Stop: 06/05/17 08:51 Last Admin: 06/05/17 09:12 Dose: 40 meq Thiamine HCl (Vitamin B1 Tab) 100 mg PO DAILY [facility] Last Admin: 06/06/17 13:27 Dose: 100 mg - Scribe Statement The provider has reviewed the documentation as recorded by the Mary Brown Provider Scribe Attestation: All medical record entries made by the Rahibalvarez were at my direction and personally dictated by me. I have reviewed the chart and agree that the record accurately reflects my personal performance of the history, physical exam, medical decision making, and the department course for this patient. I have also personally directed, reviewed, and agree with the discharge instructions and disposition. Disposition/Present on Arrival - Present on Arrival Any Indicators Present on Arrival: No History of DVT/PE: No History of Uncontrolled Diabetes: No Urinary Catheter: No History of Decub. Ulcer: No History Surgical Site Infection Following: None - Disposition Have Diagnosis and Disposition been Completed?: Yes Diagnosis: Intractable nausea and vomiting Disposition: HOSPITALIZED Disposition Time: 14:00 Patient Plan: Admission Condition: STABLE
[2017-06-04] MEDS: Sodium Chloride 0.9% 1,000 ML IV SCH (12:38)
[2017-06-04 13:09] LABS: HEMOGLOBIN 8.8 g/dL (14.0-18.0); MEAN CELL VOLUME 69.4 fl (80.0-105.0); RBC 4.12 10^6/uL (3.5-6.1); WHITE BLOOD COUNT 15.1 10^3/ul (4.5-11.0)
[2017-06-04 13:10] LABS: BASO # 0.03 K/mm3 (0.0-2.0); BASO % 0.2 % (0.0-3.0); EOS % 0.2 % (1.5-5.0); GRAN # 13.37 (1.4-6.5); GRAN % 88.7 % (50.0-68.0); LYMPH # 0.8 (1.2-3.4); LYMPH % 5.3 % (22.0-35.0); MEAN CORPUSCULAR HEMOGLOBIN 21.4 pg (25.0-35.0); MEAN CORPUSCULAR HGB CONC 30.8 g/dl (31.0-37.0); MEAN PLATELET VOLUME 8.8 fl (7.0-11.0); MONO # 0.1 (0.1-0.6); MONO % 5.6 % (1.0-6.0)
[2017-06-04 13:15] LABS: ALB/GLOB RATIO 1.2 (1.1-1.8); ALBUMIN 4.2 g/dL (3.0-4.8); ALT/SGPT 32 U/L (7-56); AST/SGOT 36 U/L (17-59); BLOOD UREA NITROGEN 13 mg/dL (7-21); CALCIUM 9.3 mg/dL (8.4-10.5); GFR AFRICAN-AMERICAN > 60; GFR NON-AFRICAN AMERICAN > 60; LIPASE 287 U/L (23-300)
--- NOTE | 2017-06-04 15:03 | CT ---
PROCEDURE: CT Abdomen and Pelvis without intravenous contrast HISTORY: Unspecified abdominal pain. COMPARISON: 05/30/2017 CT abdomen pelvis. TECHNIQUE: Unenhanced study. Neither oral nor intravenous contrast administered. Radiation dose: Total exam DLP = 663.6 0 mGy-cm. This CT exam was performed using one or more of the following dose reduction techniques: Automated exposure control, adjustment of the mA and/or kV according to patient size, and/or use of iterative reconstruction technique. FINDINGS: LOWER THORAX: Is hiatal hernia. Esophageal thickening, affecting visualized distal esophagus likely severe esophagitis. No focal abnormalities. LIVER: Unremarkable. No gross lesion or ductal dilatation. GALLBLADDER AND BILE DUCTS: Cholelithiasis without CT evidence of acute cholecystitis. PANCREAS: Unremarkable. No gross lesion or ductal dilatation. SPLEEN: Unremarkable. ADRENALS: Unremarkable. No mass. KIDNEYS AND URETERS: Unremarkable. No hydronephrosis. No solid mass. VASCULATURE: Unremarkable. No aortic aneurysm. BOWEL: Diverticulosis without an acute inflammatory component or other associated pathologic process. No APPENDIX: Unremarkable. Normal appendix. PERITONEUM: Unremarkable. No free fluid. No free air. LYMPH NODES: Unremarkable. No enlarged lymph nodes. BLADDER: Unremarkable. REPRODUCTIVE: Unremarkable. BONES: No acute fracture. OTHER FINDINGS: Right inguinal hernia repair, postoperative changes are stable. IMPRESSION: No acute interval changes compared to the prior study 05/30/2017. Considerable thickening of the visualized distal esophagus suggestive of esophagitis. Follow-up advised. Cholelithiasis without CT evidence of acute cholecystitis. Additional benign and/or incidental findings described above.
[2017-06-04] MEDS ORDERED: Sodium Chloride 0.9% 1,000 ML IV STA (18:06)
[2017-06-04 18:55] LABS: BASO # 0.03 K/mm3 (0.0-2.0); BASO % 0.2 % (0.0-3.0); EOS % 0.1 % (1.5-5.0); GRAN # 11.06 (1.4-6.5); GRAN % 85.6 % (50.0-68.0); HEMOGLOBIN 8.6 g/dL (14.0-18.0); LYMPH # 1.2 (1.2-3.4); MEAN CORPUSCULAR HEMOGLOBIN 21.1 pg (25.0-35.0); MEAN CORPUSCULAR HGB CONC 29.8 g/dl (31.0-37.0); MEAN PLATELET VOLUME 8.9 fl (7.0-11.0); MONO # 0.7 (0.1-0.6); MONO % 5.1 % (1.0-6.0); PLATELET COUNT 170 10^3/uL (120.0-450.0); RBC 4.07 10^6/uL (3.5-6.1); RED CELL DISTRIBUTION WIDTH 19.8 % (11.5-14.5); WHITE BLOOD COUNT 12.9 10^3/ul (4.5-11.0)
[2017-06-04] MEDS ORDERED: Multivitamin (MVI) 10 ML, Thiamine 100 MG, Folic Acid 1 MG in Sodium Chloride 0.9% 1,00... IV ONE (19:29)
--- NOTE | 2017-06-04 20:38 | CP.PCM.HP ---
<MarkLuisito - Last Filed: 06/04/17 20:32> History of Present Illness - History of Present Illness History of Present Illness: Luisito Flores D.O. PGY-2, Internal Medicine, History and Physical 56 year old male with past medical history of erosive esophagitis, chronic pancreatitis, COPD, alcohol abuse, and anemia who [place] [facility] [place] [facility] [place] complaints of nausea and vomiting along with tremor for about 12 hours. Patient states that his last drink was at 6pm last night and that today, particularly before presentation, he has been having worsening non-bloody non-bilious vomiting. Patient states that he also has been having worsening tremors and it is hard to do almost anything from them. Patient has had withdrawals like this in the past. Patient admits to drinking 1 pint of vodka and sometimes a couple of beers every day. Patient is currently living out of his friends garage with his brother. Otherwise patient has other specific complaints but overall feels unwell and anxious. PMH: as above PSH: Inguinal hernia repair and Right orchiectomy SH: 1pint of voda +/- beers daily on and off for years, denies tobacco or substance abuse, homeless and living in friend's garage FH: Father had rectal cancer and mother had ovarian cancer Medications: thiamine and folic acid Allergies: Penicillin Present on Admission - Present on Admission Any Indicators Present on Admission: No Review of Systems - Constitutional Constitutional: Excessive Sweating, Fatigue - EENT Eyes: absent: Blind Spots, Blurred Vision Nose/Mouth/Throat: absent: Epistaxis, Nasal Congestion - Cardiovascular Cardiovascular: absent: Chest Pain, Edema - Respiratory Respiratory: absent: Cough, Dyspnea - Gastrointestinal Gastrointestinal: Abdominal Pain, Belching, Nausea, Vomiting - Genitourinary Genitourinary: absent: Dysuria, Flank Pain - Musculoskeletal Musculoskeletal: absent: Abnormal Gait, Arthralgias - Integumentary Integumentary: absent: Lesions, Sores - Neurological Neurological: Tremor. absent: Dizziness Past Patient History - Infectious Disease Hx of Infectious Diseases: None - Tetanus Immunizations Tetanus Immunization: Unknown - Past Medical History & Family History Past Medical History?: Yes - Past Social History Smoking Status: Light Smoker < 10 Cigarettes Daily - CARDIAC Hx Cardiac Disorders: Yes - PULMONARY Hx Respiratory Disorders: Yes - NEUROLOGICAL Hx Neurological Disorder: No - HEENT Hx HEENT Problems: No - RENAL Hx Chronic Kidney Disease: No - ENDOCRINE/METABOLIC Hx Endocrine Disorders: No - HEMATOLOGICAL/ONCOLOGICAL Hx Blood Disorders: Yes - INTEGUMENTARY Hx Dermatological Problems: No - MUSCULOSKELETAL/RHEUMATOLOGICAL Hx Musculoskeletal Disorders: Yes Hx Back Pain: Yes - GASTROINTESTINAL Hx Gastrointestinal Disorders: Yes Hx Gastritis: Yes Hx Gastroesophageal Reflux: Yes Hx Pancreatitis: Yes - GENITOURINARY/GYNECOLOGICAL Hx Genitourinary Disorders: No - PSYCHIATRIC Hx Psychophysiologic Disorder: Yes Hx Anxiety: Yes Hx Substance Use: No Other/Comment: alcohol abuse - SURGICAL HISTORY Other/Comment: orcchectomy, ventral and inguinal hernia repair - ANESTHESIA Hx Anesthesia: Yes Hx Anesthesia Reactions: No Hx Malignant Hyperthermia: No Meds Allergies/Adverse Reactions: Allergies Allergy/AdvReac Type Severity Reaction Status Date / Time Penicillins Allergy Mild RASH Verified 06/03/17 21:02 Physical Exam - Constitutional Appears: Non-toxic, No Acute Distress - Head Exam Head Exam: ATRAUMATIC, NORMOCEPHALIC - Eye Exam Eye Exam: EOMI Pupil Exam: PERRL - ENT Exam ENT Exam: Mucous Membranes Moist, Normal Exam - Neck Exam Neck exam: Positive for: Normal Inspection - Respiratory Exam Respiratory Exam: Clear to Auscultation Bilateral. absent: Rhonchi, Wheezes - Cardiovascular Exam Cardiovascular Exam: Tachycardia, +S1, +S2. absent: Gallop - GI/Abdominal Exam GI & Abdominal Exam: Normal Bowel Sounds, Soft, Tenderness (mild epigastric to deep palpation). absent: Distended - Extremities Exam Extremities exam: Positive for: normal capillary refill. Negative for: calf tenderness - Back Exam Back exam: absent: paraspinal tenderness, vertebral tenderness - Neurological Exam Neurological exam: Alert, CN II-XII Intact, Oriented x3 Additional comments: fine tremor of BL upper extremities - Psychiatric Exam Psychiatric exam: Anxious - Skin Skin Exam: Dry, Warm Results - Vital Signs Recent Vital Signs: Last Vital Signs Temp 97.6 F 06/04/17 16:15 Pulse 75 06/04/17 18:30 Resp 17 06/04/17 18:30 BP 143/91 H 06/04/17 18:30 Pulse Ox 100 06/04/17 18:30 - Labs Result Diagrams: 06/04/17 16:30 06/04/17 13:00 Assessment & Plan - Assessment and Plan (Free Text) Assessment: 56 year old male with past medical history of erosive esophagitis, chronic pancreatitis, COPD, alcohol abuse, and anemia who [place] [facility] [place] complaints of nausea and vomiting along with tremor for about 12 hours Plan: 1. Intractable nausea and vomiting Placed in observation Likely 2/2 withdrawal from alcohol PRN zofran added Will advance diet as tolerated Lipase not elevated and clinically not presenting as pancreatitis Will start on banana bag for assessment #2 as well as for hydration and transition to NS 2. Alcohol abuse CIWA protocol initiated Aspiration, seizure, and fall precautions in place Started on librium 25mg po q8h PRN ativan 2q2 IVP Discussed at length how this is one of multiple admission for the same issue. Patient is homeless and unfortunately his life situation drives him to drink as it is cheap and an escape. Patient was recently in another facility in [place] and states was interested in something called a [facility] program where he could do rehab to try and stop drinking. We discussed at length the various consequences of his alcohol abuse, including but no limited cirrhosis, ascites, encephalopathy, hepatorenal syndrome, bleeding, and eventually accelerated than if he were not drinking like he is. Patient verbalized both the understanding and agreement that this is not the way to continue. Patient states that he would like to receive aid if possible in this regard. Patient amenable to lifestyle changes. SW consultation placed. 3. Chronic microcytic anemia Retic count, iron, TIBC, ferritin, and transferrin HD stable at this time No signs of active bleeding Will follow, repeat CBC in the AM 4. Erosive esophagitis Continue home protonix Greater than 60 minutes was spent in the care of this patient, of which greater than 50% of the time was spent at bedside and in patient education and counseling in alcohol cessation. All questions welcomed and answered. Patient will be placed in observation and be re-evaluated. Will discuss with day team. DVT ppx: SCDs Patient was seen and evaluated and case was discussed at length with attending physician - Date & Time Date: 06/04/17 Time: 19:00 <Regina Chung - Last Filed: 06/05/17 03:56> Results - Vital Signs Recent Vital Signs: Last Vital Signs Temp 98.7 F 06/05/17 00:01 Pulse 61 06/05/17 01:59 Resp 18 06/05/17 00:01 BP 146/84 06/05/17 00:01 Pulse Ox 97 03/15/18 00:01 - Labs Result Diagrams: 06/04/17 16:30 06/04/17 13:00
[2017-06-04 21:18] LABS: BAND 1 % (0-2); LYMPHOCYTE 5 % (22.0-35.0); MONOCYTE 6 % (1.0-6.0); NEUTROPHIL 88 % (50.0-70.0)
[2017-06-04] MEDS: Insulin Reg-LOW-Coverage SC SCH (23:20)
[2017-06-05] MEDS: Sodium Chloride 0.9% 1,000 ML IV SCH ×2 (02:50→09:03)
[2017-06-05] MEDS: Pantoprazole 40 mg EC Tab PO SCH (05:50)
[2017-06-05 07:29] LABS: BASO # 0.02 K/mm3 (0.0-2.0); BASO % 0.3 % (0.0-3.0); EOS # 0.2 (0.0-0.7); EOS % 2.2 % (1.5-5.0); GRAN # 4.55 (1.4-6.5); HEMOGLOBIN 8.5 g/dL (14.0-18.0); LYMPH # 1.4 (1.2-3.4); LYMPH % 20.8 % (22.0-35.0); MEAN CELL VOLUME 70.6 fl (80.0-105.0); MEAN CORPUSCULAR HEMOGLOBIN 20.8 pg (25.0-35.0); MEAN CORPUSCULAR HGB CONC 29.5 g/dl (31.0-37.0); MEAN PLATELET VOLUME 8.8 fl (7.0-11.0); MONO # 0.7 (0.1-0.6); MONO % 9.7 % (1.0-6.0); PLATELET COUNT 139 10^3/uL (120.0-450.0); RBC 4.08 10^6/uL (3.5-6.1); RED CELL DISTRIBUTION WIDTH 19.8 % (11.5-14.5); WHITE BLOOD COUNT 6.8 10^3/ul (4.5-11.0)
[2017-06-05 07:42] LABS: IRON 83 ug/dL (45-180)
[2017-06-05 07:51] LABS: % IRON SATURATION 18 % (20-55); TOTAL IRON BINDING CAPACITY 456 ug/dL (261-462)
[2017-06-05 08:00] LABS: ALB/GLOB RATIO 1.2 (1.1-1.8); ALBUMIN 3.7 g/dL (3.0-4.8); ALT/SGPT 31 U/L (7-56); AST/SGOT 35 U/L (17-59); BLOOD UREA NITROGEN 9 mg/dL (7-21); CALCIUM 8.7 mg/dL (8.4-10.5); GFR AFRICAN-AMERICAN > 60; GFR NON-AFRICAN AMERICAN > 60
[2017-06-05] MEDS ORDERED: Potassium Chloride 40 mEq/30 ml LIQ UD PO ONE (08:50)
[2017-06-05] MEDS: Insulin Reg-LOW-Coverage SC SCH ×4 (09:11→22:57)
[2017-06-05 13:24] LABS: FERRITIN 12.2 ng/mL
[2017-06-05 19:42] VITALS: RESP 20; O2SAT 98
--- NOTE | 2017-06-05 23:51 | CP.PCM.PN ---
<Bertin Celeste - Last Filed: 06/05/17 23:52> Subjective - Date & Time of Evaluation Date of Evaluation: 06/05/17 Time of Evaluation: 07:30 - Subjective Subjective: Bertin Celeste DO PGY1 - IM Progress Note Patient seen and examined at bedside. Per nursing staff, no acute events overnight. Patient was asleep, but arousable, oriented to person, place and time. Patient reports some nausea and one episode of vomiting. Denies shortness of breath, abdominal pain, fever, chills, diarrhea, constipation. Objective - Vital Signs/Intake and Output Vital Signs (last 24 hours): Temp Pulse Resp BP Pulse Ox 97.6 F 73 20 121/77 98 06/05/17 18:00 06/05/17 18:00 06/05/17 18:00 06/05/17 18:00 06/05/17 18:00 Intake and Output: 06/05/17 06/06/17 18:59 06:59 Intake Total 800 Output Total 500 Balance 300 - Medications Medications: Current Medications Chlordiazepoxide (Librium) 25 mg PO Q8 SOPHIA PRN Reason: Protocol Last Admin: 06/05/17 22:16 Dose: 25 mg Sodium Chloride (Sodium Chloride 0.9%) 1,000 mls @ 150 mls/hr IV .Q6H40M [facility] Last Admin: 06/05/17 09:03 Dose: 150 mls/hr Insulin Human Regular (Humulin R Low) 0 units SC ACHS SOPHIA PRN Reason: Protocol Last Admin: 06/05/17 22:57 Dose: Not Given Lorazepam (Ativan) 2 mg IVP Q2H PRN; Protocol PRN Reason: Agitation Last Admin: 06/04/17 23:26 Dose: 2 mg Ondansetron HCl (Zofran Inj) 4 mg IVP Q6H PRN PRN Reason: Nausea/Vomiting Last Admin: 06/05/17 12:55 Dose: 4 mg Pantoprazole Sodium (Protonix Ec Tab) 40 mg PO 0630 [facility] Last Admin: 06/05/17 05:50 Dose: 40 mg - Labs Labs: 06/05/17 07:00 06/05/17 07:00 - Constitutional Appears: Non-toxic, In Acute Distress (mild), Unkempt - Head Exam Head Exam: ATRAUMATIC, NORMOCEPHALIC - Eye Exam Eye Exam: EOMI, Normal appearance, PERRL - ENT Exam ENT Exam: Mucous Membranes Moist - Neck Exam Neck Exam: Normal Inspection - Respiratory Exam Respiratory Exam: Chest Wall Tenderness, Clear to Ausculation Bilateral, NORMAL BREATHING PATTERN - Cardiovascular Exam Cardiovascular Exam: RRR, +S1, +S2 - GI/Abdominal Exam GI & Abdominal Exam: Soft, Normal Bowel Sounds. absent: Tenderness - Extremities Exam Extremities Exam: absent: Calf Tenderness, Pedal Edema - Neurological Exam Neurological Exam: Alert, Awake, Oriented x3 Additional comments: Tremulous - Psychiatric Exam Psychiatric exam: Normal Affect, Normal Mood - Skin Skin Exam: Diaphoretic, Intact, Normal Color Assessment and Plan - Assessment and Plan (Free Text) Assessment: 56 year old male with past medical history of erosive esophagitis, chronic pancreatitis, COPD, alcohol abuse, and anemia who presented to the [facility] for complaints of nausea and vomiting along with tremor for about 12 hours Plan: 1. Intractable nausea and vomiting Slightly improved Likely 2/2 withdrawal from alcohol Continue PRN zofran Will advance diet as tolerated IVF 2. Alcohol abuse Continue CIWA protocol Aspiration, seizure, and fall precautions in place Continue Librium 25mg PO Q8 PRN ativan 2q2 IVP 3. Chronic microcytic anemia Retic count, iron, TIBC, and ferritin normal, though ferritin may be spuriously elevated in his acutely ill state Transferrin high Hemodynamically stable at this time No signs of active bleeding Will follow, repeat CBC in the AM 4. Erosive esophagitis Continue home protonix DVT ppx: SCDs Patient was seen and evaluated and case was discussed at length with Dr. Narvaez <Dale Narvaez - Last Filed: 06/06/17 07:30> Objective - Vital Signs/Intake and Output Vital Signs (last 24 hours): Temp Pulse Resp BP Pulse Ox 97.6 F 68 20 121/77 98 06/05/17 18:00 06/06/17 06:00 06/05/17 18:00 06/05/17 18:00 06/05/17 18:00 Intake and Output: 06/06/17 06/06/17 06:59 18:59 Intake Total 240 Output Total 300 Balance -60 - Medications Medications: Current Medications Chlordiazepoxide (Librium) 25 mg PO Q8 SOPHIA PRN Reason: Protocol Last Admin: 06/06/17 05:37 Dose: 25 mg Sodium Chloride (Sodium Chloride 0.9%) 1,000 mls @ 150 mls/hr IV .Q6H40M [facility] Last Admin: 06/05/17 09:03 Dose: 150 mls/hr Insulin Human Regular (Humulin R Low) 0 units SC ACHS SOPHIA PRN Reason: Protocol Last Admin: 06/05/17 22:57 Dose: Not Given Lorazepam (Ativan) 2 mg IVP Q2H PRN; Protocol PRN Reason: Agitation Last Admin: 06/06/17 02:01 Dose: 2 mg Ondansetron HCl (Zofran Inj) 4 mg IVP Q6H PRN PRN Reason: Nausea/Vomiting Last Admin: 06/05/17 12:55 Dose: 4 mg Pantoprazole Sodium (Protonix Ec Tab) 40 mg PO 0630 [facility] Last Admin: 06/06/17 05:37 Dose: 40 mg - Labs Labs: 06/06/17 05:30 06/06/17 05:30 Attending/Attestation - Attestation I have personally seen and examined this patient.: Yes I have fully participated in the care of the patient.: Yes I have reviewed all pertinent clinical information, including history, physical exam and plan: Yes Notes (Text): 06/05/17 56 year old male with past medical history of esophagitis, chronic ETOH abuse and COPD who presented with nausea, vomiting and alcohol withdrawal. Continue with banana bag, librium and ativan prn for withdrawal symptoms. Patient was counselled on alcohol abstinence. CT was reviewed showing esophagitis. Continue with protonix and zofran. Continue with liquid diet for now. Patient needs outpatient GI follow up. Dale Narvaez MD Hospitalist.
[2017-06-06] MEDS: Pantoprazole 40 mg EC Tab PO SCH (05:37)
[2017-06-06 06:26] LABS: BASO # 0.02 K/mm3 (0.0-2.0); BASO % 0.2 % (0.0-3.0); EOS # 0.5 (0.0-0.7); GRAN # 5.65 (1.4-6.5); GRAN % 67.5 % (50.0-68.0); HEMOGLOBIN 8.8 g/dL (14.0-18.0); LYMPH # 1.5 (1.2-3.4); LYMPH % 17.8 % (22.0-35.0); MEAN CELL VOLUME 71.3 fl (80.0-105.0); MEAN CORPUSCULAR HEMOGLOBIN 21.1 pg (25.0-35.0); MEAN CORPUSCULAR HGB CONC 29.5 g/dl (31.0-37.0); MEAN PLATELET VOLUME 9.5 fl (7.0-11.0); MONO # 0.7 (0.1-0.6); MONO % 8.5 % (1.0-6.0); RBC 4.18 10^6/uL (3.5-6.1); RED CELL DISTRIBUTION WIDTH 19.6 % (11.5-14.5); WHITE BLOOD COUNT 8.4 10^3/ul (4.5-11.0)
[2017-06-06 06:56] LABS: ALB/GLOB RATIO 1.2 (1.1-1.8); ALBUMIN 3.8 g/dL (3.0-4.8); ALT/SGPT 26 U/L (7-56); AST/SGOT 32 U/L (17-59); BLOOD UREA NITROGEN 9 mg/dL (7-21); CALCIUM 9.5 mg/dL (8.4-10.5); GFR AFRICAN-AMERICAN > 60; GFR NON-AFRICAN AMERICAN > 60
[2017-06-06] MEDS: Insulin Reg-LOW-Coverage SC SCH ×2 (08:10→12:11)
[2017-06-06 08:37] VITALS: BP 123/84; TEMP 98.1
--- NOTE | 2017-06-06 15:58 | CP.PCM.DIS ---
<AmineBertin - Last Filed: 06/06/17 16:15> Provider - Provider Date of Admission: 06/04/17 18:07 Attending physician: Jessica Chung MD Primary care physician: Tommie Alexander MD Time Spent in preparation of Discharge (in minutes): 45 Diagnosis - Discharge Diagnosis (1) Alcohol withdrawal Status: Acute Hospital Course - Lab Results Lab Results: Micro Results 06/06/17 01:45 Arm - Left Gram Stain - Final Most Recent Lab Values WBC 8.4 10^3/ul (4.5-11.0) D 06/06/17 05:30 RBC 4.18 10^6/uL (3.5-6.1) 06/06/17 05:30 Hgb 8.8 g/dL (14.0-18.0) L 06/06/17 05:30 Hct 29.8 % (42.0-52.0) L 06/06/17 05:30 MCV 71.3 fl (80.0-105.0) L 06/06/17 05:30 MCH 21.1 pg (25.0-35.0) L 06/06/17 05:30 MCHC 29.5 g/dl (31.0-37.0) L 06/06/17 05:30 RDW 19.6 % (11.5-14.5) H 06/06/17 05:30 Plt Count 155 10^3/uL (120.0-450.0) 06/06/17 05:30 MPV 9.5 fl (7.0-11.0) 06/06/17 05:30 Gran % 67.5 % (50.0-68.0) 06/06/17 05:30 Lymph % (Auto) 17.8 % (22.0-35.0) L 06/06/17 05:30 [place] % (Auto) 8.5 % (1.0-6.0) H 06/06/17 05:30 Eos % (Auto) 6.0 % (1.5-5.0) H 06/06/17 05:30 Baso % (Auto) 0.2 % (0.0-3.0) 06/06/17 05:30 Gran # 5.65 (1.4-6.5) 06/06/17 05:30 Lymph # (Auto) 1.5 (1.2-3.4) 06/06/17 05:30 [place] # (Auto) 0.7 (0.1-0.6) H 06/06/17 05:30 Eos # (Auto) 0.5 (0.0-0.7) 06/06/17 05:30 Baso # (Auto) 0.02 K/mm3 (0.0-2.0) 06/06/17 05:30 Neutrophils % (Manual) 88 % (50.0-70.0) H 06/04/17 16:30 Band Neutrophils % 1 % (0-2) 06/04/17 16:30 Lymphocytes % (Manual) 5 % (22.0-35.0) L 06/04/17 16:30 Monocytes % (Manual) 6 % (1.0-6.0) 06/04/17 16:30 Retic Count 1.34 % (0.5-1.5) 06/05/17 07:00 Sodium 138 mmol/L (132-148) 06/06/17 05:30 Potassium 3.6 mmol/L (3.6-5.0) 06/06/17 05:30 Chloride 101 mmol/L (98-107) 06/06/17 05:30 Carbon Dioxide 26 mmol/L (21-33) 06/06/17 05:30 Anion Gap 14 (10-20) 06/06/17 05:30 BUN 9 mg/dL (7-21) 06/06/17 05:30 Creatinine 0.8 mg/dl (0.8-1.5) 06/06/17 05:30 Est GFR ( Amer) > 60 06/06/17 05:30 Est GFR (Non-Af Amer) > 60 06/06/17 05:30 POC Glucose (mg/dL) 95 mg/dL (65-110) 06/06/17 07:43 Random Glucose 92 mg/dL (70-110) 06/06/17 05:30 Calcium 9.5 mg/dL (8.4-10.5) 06/06/17 05:30 Magnesium 1.8 mg/dL (1.7-2.2) 06/06/17 05:30 Iron 83 ug/dL (45-180) 06/05/17 07:00 TIBC 456 ug/dL (261-462) 06/05/17 07:00 % Saturation 18 % (20-55) L 06/05/17 07:00 Transferrin 383.96 mg/dL (206-381) H 06/05/17 07:00 Ferritin 12.2 ng/mL 06/05/17 07:00 Total Bilirubin 1.1 mg/dL (0.2-1.3) 06/06/17 05:30 AST 32 U/L (17-59) 06/06/17 05:30 ALT 26 U/L (7-56) 06/06/17 05:30 Alkaline Phosphatase 84 U/L (38-126) 06/06/17 05:30 Total Protein 7.0 g/dL (5.8-8.3) 06/06/17 05:30 Albumin 3.8 g/dL (3.0-4.8) 06/06/17 05:30 Globulin 3.3 gm/dL 06/06/17 05:30 Albumin/Globulin Ratio 1.2 (1.1-1.8) 06/06/17 05:30 Lipase 287 U/L (23-300) 06/04/17 13:00 Alcohol, Quantitative < 10 mg/dL (0-10) 06/04/17 16:30 - Hospital Course Hospital Course: 56 year old male with past medical history of erosive esophagitis, chronic pancreatitis, COPD, alcohol abuse, and anemia who presented to the [facility] ER for complaints of nausea and vomiting along with tremor for about 12 hours. Patient' s last drink was 6pm the night prior to admission. Patient was admitted for intractable nausea and vomiting secondary to alcohol withdrawal. Imaging studies showed no acute findings that would contribute to his symptoms. Today, he is no longer complaining of nausea and has not vomited since yesterday. He is tolerating a regular diet. He has showered independantly and is ambulating without difficulty. He denies any chest pain, shortness of breath , abdominal pain, fever, chills, diarrhea, constipation. He was started on PO iron for iron deficiency anemia, and a PPI for erosive esophagitis. He was advised to follow up with a mortgage loan interviewer for repeat EGD to follow up on his erosive esophagitis, the importance of which was repeatedly stressed. He was also instructed to abstain from alcohol, and he endorses a desire to enter a rehabilitation program, which he was given information for. He was also given prescriptions for vitamin supplements. He was given instructions on follow up. All questions were answered to his satisfaction, and he was discharged to home. Discharge Exam - Head Exam Head Exam: ATRAUMATIC, NORMOCEPHALIC - Eye Exam Eye Exam: EOMI, Normal appearance, PERRL - ENT Exam ENT Exam: Mucous Membranes Moist - Neck Exam Neck exam: Normal Inspection - Respiratory Exam Respiratory Exam: Clear to PA & Lateral, NORMAL BREATHING PATTERN - Cardiovascular Exam Cardiovascular Exam: RRR, +S1, +S2 - GI/Abdominal Exam GI & Abdominal Exam: Normal Bowel Sounds, Soft. absent: Tenderness - Extremities Exam Additional comments: Left ventral forearm with abrasion, likely from tape from prior IV site dressing. No erythema, induration, bleeding, or purulence. - Neurological Exam Neurological exam: Alert, CN II-XII Intact, Oriented x3 Additional comments: Faint tremor. No asterixis - Psychiatric Exam Psychiatric exam: Normal Affect, Normal Mood - Skin Skin Exam: Dry, Intact, Normal Color Discharge Plan - Discharge Medications Prescriptions: Ferrous Sulfate [Feosol] 324 mg PO TID #90 ect Folic Acid 1 mg PO DAILY #30 tab Multivitamin Therapeutic Tab [Thera Tab] 1 tab PO 0800 #30 tab Thiamine [Vitamin B1 Tab] 100 mg PO DAILY #30 tab - Follow Up Plan Condition: GOOD Disposition: HOME/ ROUTINE Additional Instructions: Continue to take iron supplement three times daily; may cause you to have dark stools and constipation - Drink plenty of water and increase fiber intake Continue to take folate, thiamine, and multivitamin daily Continue to take omeprazole daily 30-60 minutes before first meal of the day Follow up with primary care provider of your choice, or [facility] within one week Follow up with GI provider of your choice for repeat EGD and further follow up and management Abstain from alcohol entirely For any new or worsening concerns, return to the ER Referrals: Sachin Monsivais MD [Staff Provider] - Tommie Alexander MD [Primary Care Provider] - <Dale Narvaez - Last Filed: 06/06/17 16:33> Provider - Provider Date of Admission: 06/04/17 18:07 Attending physician: Jessica Chung MD Primary care physician: Tommie Alexander MD [facility] Course - Lab Results Lab Results: Micro Results 06/06/17 01:45 Arm - Left Gram Stain - Final Most Recent Lab Values WBC 8.4 10^3/ul (4.5-11.0) D 06/06/17 05:30 RBC 4.18 10^6/uL (3.5-6.1) 06/06/17 05:30 Hgb 8.8 g/dL (14.0-18.0) L 06/06/17 05:30 Hct 29.8 % (42.0-52.0) L 06/06/17 05:30 MCV 71.3 fl (80.0-105.0) L 06/06/17 05:30 MCH 21.1 pg (25.0-35.0) L 06/06/17 05:30 MCHC 29.5 g/dl (31.0-37.0) L 06/06/17 05:30 RDW 19.6 % (11.5-14.5) H 06/06/17 05:30 Plt Count 155 10^3/uL (120.0-450.0) 06/06/17 05:30 MPV 9.5 fl (7.0-11.0) 06/06/17 05:30 Gran % 67.5 % (50.0-68.0) 06/06/17 05:30 Lymph % (Auto) 17.8 % (22.0-35.0) L 06/06/17 05:30 [place] % (Auto) 8.5 % (1.0-6.0) H 06/06/17 05:30 Eos % (Auto) 6.0 % (1.5-5.0) H 06/06/17 05:30 Baso % (Auto) 0.2 % (0.0-3.0) 06/06/17 05:30 Gran # 5.65 (1.4-6.5) 06/06/17 05:30 Lymph # (Auto) 1.5 (1.2-3.4) 06/06/17 05:30 [place] # (Auto) 0.7 (0.1-0.6) H 06/06/17 05:30 Eos # (Auto) 0.5 (0.0-0.7) 06/06/17 05:30 Baso # (Auto) 0.02 K/mm3 (0.0-2.0) 06/06/17 05:30 Neutrophils % (Manual) 88 % (50.0-70.0) H 06/04/17 16:30 Band Neutrophils % 1 % (0-2) 06/04/17 16:30 Lymphocytes % (Manual) 5 % (22.0-35.0) L 06/04/17 16:30 Monocytes % (Manual) 6 % (1.0-6.0) 06/04/17 16:30 Retic Count 1.34 % (0.5-1.5) 06/05/17 07:00 Sodium 138 mmol/L (132-148) 06/06/17 05:30 Potassium 3.6 mmol/L (3.6-5.0) 06/06/17 05:30 Chloride 101 mmol/L (98-107) 06/06/17 05:30 Carbon Dioxide 26 mmol/L (21-33) 06/06/17 05:30 Anion Gap 14 (10-20) 06/06/17 05:30 BUN 9 mg/dL (7-21) 06/06/17 05:30 Creatinine 0.8 mg/dl (0.8-1.5) 06/06/17 05:30 Est GFR ( Amer) > 60 06/06/17 05:30 Est GFR (Non-Af Amer) > 60 06/06/17 05:30 POC Glucose (mg/dL) 95 mg/dL (65-110) 06/06/17 07:43 Random Glucose 92 mg/dL (70-110) 06/06/17 05:30 Calcium 9.5 mg/dL (8.4-10.5) 06/06/17 05:30 Magnesium 1.8 mg/dL (1.7-2.2) 06/06/17 05:30 Iron 83 ug/dL (45-180) 06/05/17 07:00 TIBC 456 ug/dL (261-462) 06/05/17 07:00 % Saturation 18 % (20-55) L 06/05/17 07:00 Transferrin 383.96 mg/dL (206-381) H 06/05/17 07:00 Ferritin 12.2 ng/mL 06/05/17 07:00 Total Bilirubin 1.1 mg/dL (0.2-1.3) 06/06/17 05:30 AST 32 U/L (17-59) 06/06/17 05:30 ALT 26 U/L (7-56) 06/06/17 05:30 Alkaline Phosphatase 84 U/L (38-126) 06/06/17 05:30 Total Protein 7.0 g/dL (5.8-8.3) 06/06/17 05:30 Albumin 3.8 g/dL (3.0-4.8) 06/06/17 05:30 Globulin 3.3 gm/dL 06/06/17 05:30 Albumin/Globulin Ratio 1.2 (1.1-1.8) 06/06/17 05:30 Lipase 287 U/L (23-300) 06/04/17 13:00 Alcohol, Quantitative < 10 mg/dL (0-10) 06/04/17 16:30 Attending/Attestation - Attestation I have personally seen and examined this patient.: Yes I have fully participated in the care of the patient.: Yes I have reviewed all pertinent clinical information, including history, physical exam and plan: Yes Notes (Text): 06/06/17 16:31 56 year old male with past medical history of esophagitis, chronic ETOH abuse and COPD who presented with nausea, vomiting and alcohol withdrawal. Symptoms improved with banana bag and tapering librium and ativan prn. He was counselled on alcohol abstinence. CT showed severe esophagitis. He was on protonix and zofran with improvement of GI complaints. Diet was advanced which he tolerated. Patient is discharged home to follow up with pmd or [facility]. Strongly encouraged outpatient GI follow up. Counselled on alcohol abstinence. Dale Narvaez MD Hospitalist.
[2017-06-06 16:27] VITALS: PULSE 68
[2017-06-07] MEDS ORDERED: Multivitamin Therapeutic Tab PO SCH (08:00)
== END 2017-06-06 16:38 | disposition home or self-care (01) ==
LOC: ED 11:41 → ERH 18:07 → 3RSO 22:44 → 3RNO 06-05 21:34
PROVIDERS: ADMIT Hospitalist; ATTEND Hospitalist
DX: F10.239 Alcohol dependence with withdrawal, unspecified (principal); K86.1 Other chronic pancreatitis; J44.9 Chronic obstructive pulmonary disease, unspecified; D50.9 Iron deficiency anemia, unspecified; K20.8 Other esophagitis; Y90.0 Blood alcohol level of less than 20 mg/100 ml; Z87.891 Personal history of nicotine dependence; Z88.0 Allergy status to penicillin
CPT/HCPCS: 36415; 74176; 80053; 80320; 82728; 82948; 83690; 83735; 84466; 85025; 85044; 87070; 96361; 96374; 96375; 96376; 99285; G0378; J2060; J2405; J3411; J3480; J7040

== ENCOUNTER 2017-06-08 15:51 | Emergency (ER) | payer MEDICAID ==
[2017-06-08 15:51] VITALS: BMI 30.7
--- NOTE | 2017-06-08 16:15 | ED PDOC ---
Arrival/HPI - General Chief Complaint: Cardiac Arrest Time Seen by Provider: 06/08/17 16:02 Historian: EMS EM Caveat: Acuity of Condition, Unstable Vital Signs, Intubated - History of Present Illness Narrative History of Present Illness (Text): 06/08/17 16:11 pt arrived to the ED intubated by EMS; pt was found to have been choking at [facility], and ? may have had some food to eat; bystanders noted patient choking and exhibited resp distress, pt slumped to the floor and bystanders provided CPR; with EMS arrival, and continued CPR, pt was found to be asystolic and was immediately intubated with 7.5 ETT, pt was noted to have copious food particles while pt was being intubated; + shockable rhythm was identified and pt received 1 shock; pt was provided with EPI x 4 rounds while on the field; pt was brought to ED for further management; per EMS, pt may have been on the field , unresponsive without rhythm for ~ 30min prior to ED arrival; EMS spend ~ 20min with the patient; pt is receiving continuous CPR currently; pt is here for further mgt NO family is at bedside PCP: Dr John Guerrier Time/Duration: Prior to Arrival Symptom Onset: Sudden Symptom Course: Worsening Severity Level: Severe Activities at Onset: Other (while at [facility]) Context: Other (at [facility]) Past Medical History - Provider Review Nursing Documentation Reviewed: Yes - Travel History Have you recently traveled outside [place] w/in the past 3 mons?: No - Past History Past History: No Previous - Infectious Disease Hx of Infectious Diseases: None - Tetanus Immunization Tetanus Immunization: Unknown - Cardiac Hx Cardiac Disorders: Yes - Pulmonary Hx Respiratory Disorders: Yes - Neurological Hx Neurological Disorder: No - HEENT Hx HEENT Disorder: No - Renal Hx Renal Disorder: No - Endocrine/Metabolic Hx Endocrine Disorders: No - Hematological/Oncological Hx Blood Disorders: Yes - Integumentary Hx Dermatological Disorder: No - Musculoskeletal/Rheumatological Hx Musculoskeletal Disorders: Yes Hx Back Pain: Yes Hx Falls: No - Gastrointestinal Hx Gastrointestinal Disorders: Yes Hx Gastroesophageal Reflux: Yes Hx Pancreatitis: Yes - Genitourinary/Gynecological Hx Genitourinary Disorders: No - Psychiatric Hx Psychophysiologic Disorder: Yes Hx Anxiety: Yes Hx Substance Use: No Other/Comment: alcohol abuse - Surgical History Other/Comment: orcchectomy, ventral and inguinal hernia repair - Anesthesia Hx Anesthesia: Yes Hx Anesthesia Reactions: No Hx Malignant Hyperthermia: No - Suicidal Assessment Feels Threatened In Home Enviroment: No Family/Social History - Physician Review Nursing Documentation Reviewed: Yes Family/Social History: Unknown Family HX Smoking Status: Never Smoked Hx Alcohol Use: Yes (daily: 1 pint of vodka and beer) Amount per day: 10 Hx Substance Use: No Hx Substance Use Treatment: No Allergies/Home Meds Allergies/Adverse Reactions: Allergies Penicillins Allergy (Mild, Verified 06/03/17 21:02) RASH Review of Systems - Review of Systems Systems not reviewed;Unavailable: Intubated (cardiac arrest) Respiratory: Other (respiratory distress) Gastrointestinal: Vomiting Physical Exam - Physical Exam Physical Exam Limitations: Other (intubated, cardiac arrest) Vital Signs Temp Pulse Resp Pulse Ox 06/08/17 15:55 97.1 F L 0 L 0 L 0 L Temperature: Afebrile Blood Pressure: Other (no Blood pressure) Pulse: Pulseless (at times fibrillation) Respiratory Rate: Apneic (ETT - manually baged by resp tech) Appearance: Positive for: Other (ashen/amaro appearence; NONE RESPONSIVE; ) Pain Distress: Other (unknown) Mental Status: Positive for: other (unresponsive, intubated) - Systems Exam Head: Present: Atraumatic, Normocephalic Pupils: Present: Other (dilated/non-reactive pupils; no nystagmus, sclera anicteric) Extroacular Muscles: Present: Other (no palsy/nystagmus noted) Conjunctiva: Present: Normal Ears: Present: Normal Mouth: Present: Other (ETT in mouth 7.5 at 25 - will w/d back; intact dentitions ; + copious vomitus is noted, blood tinged) Pharnyx: Present: Other (unable to assess) Nose (External): Present: Atraumatic Nose (Internal): Present: Normal Inspection Neck: Present: Other (no gross deformities) Respiratory/Chest: Present: Other (+ coarse breath sounds with manual ventilation; APENIC; NO spontaneous breathing is noted) Cardiovascular: Present: Other (pulseness; no rub/murmur noted) Abdomen: Present: Other (well nourished male, no gross distentions/masses noted , no lesions noted) Back: Present: Normal Inspection Upper Extremity: Present: Normal Inspection, Other (no gross swelling noted). No: NORMAL PULSES, Deformity Lower Extremity: Present: Normal Inspection. No: NORMAL PULSES Neurological: Present: Other (GCS = 3; unable to assess; pt is not responsive) Skin: Present: Other (ashen/longo discoloration; facial paleness; cap refill > 4 sec; cyanosis discoloration is noted) Medical Decision Making ED Course and Treatment: 06/08/17 1610 Impression: cardiac arrest i have consider all the differential diagnosis regarding pt's chief medical complaints/clinical findings, including but are not limited to: cardiac arrest A/P: cardiac arrest - CPR - EPI every 3-5 min - amiodarone/calcium chloride/magesium 1 grm I received patient in the resuscitation room at ~ 1550 with cardiac arrest in progress; CPR continued; pulse check revealed puslelessness/asystole and noted on the monitor fine fibrillation wave forms, pt received 1 360J shock; pulse check remained pulselessness, CPR resumed; ETT check revealed deep intubation, resp tech is instructed to withdraw the ETT ~ 2-3 inch, currently at 24 at the lip; manual ventilation continued without difficulties as per resp tech; vital signs reveal 0 HR, monitor indicates good wave form per cardiac compression but fine waveform/asystole without compression; EPI every 3-5min x 3 rounds were provided regularly; amiodarone 300mg IVP was given/1gram of Mg Sulfate/1 amp of CaCl2; no response from patient is noted; continued pulse check reveals no shockable rhythm and asystole; bedside ultrasound was performed by me and indicated CARDIAC STAND-STILL, no evidence of pericardial fluid is noted as an aside; due to the length/duration of pt's CPR as well as pt's currently status, PT IS PRONOUNCED AT 4:01pm. 1630 - i contacted Dr John Guerrier, pt's ? PCP; DR guerrier is made aware but states he does not recognize the patient, possibly has not seen patient for many years as pt is a known homeless individual with alcohol dependency nursing staff contacting ME, awaiting their decisions I filed on [place] EDRS, case was created for the patient unable to reach a family member for the patient PD is at bedside Re-evaluation Time: 16:01 Reassessment Condition: Worse - Critical Care Critical Care Minutes: 30 minutes Critical Care Time: Excluding Proc Time Narrative Critical Care (Text): 06/08/17 17:01 critical care time: 35min, excluding procedure time, excluding time teaching residents/students/mid-level providers; including initial eval/diagnosis, diagnostic interpretation, re-eval, consultations, final disposition Disposition/Present on Arrival - Present on Arrival Any Indicators Present on Arrival: No History of DVT/PE: No History of Uncontrolled Diabetes: No Urinary Catheter: No History Surgical Site Infection Following: None - Disposition Have Diagnosis and Disposition been Completed?: Yes Diagnosis: Cardiac arrest due to other underlying condition Disposition: WITH WITHOUT AUTOPSY Disposition Time: 16:09 Condition: Forms: [employer] [facility])
[2017-06-08 16:26] VITALS: PULSE 0; RESP 0; TEMP 97.1; O2SAT 0
== END 2017-06-08 19:31 ==
LOC: ED 15:51
DX: I46.8 Cardiac arrest due to other underlying condition (principal); Z59.0 Homelessness